=== PATIENT | female | born 1965 | race Caucasian/White ===

== ENCOUNTER 2022-06-28 12:02 | Inpatient (IN) | payer MEDICAID ==
[~2022-06-28] VITALS: Ht 162.6 cm; Wt 118.6 kg
[~2022-06-28 12:02] MED LIST: ALB5IS NEB; AZIT250T9 PO; CAR125T; DULO60CA PO; FURO1TAB31 PO; GEMF-19 PO; HYDR50TA69 PO; IBUP400T23 PO; LOSA100T25 PO; MAGN400T40 PO; POTA10TA32 PO; PROM25TA5 PO; QUET300T24 PO; QUET50TA27 PO; SPIR50TA5 PO; TEMA30CA PO
[2022-06-28 13:15] LABS: Basophils # (auto) 0 10 ^3/uL (0-0.2); Basophils % (auto) 0.5 % (0.0-2.0); Eosinophils # (auto) 0 10 ^3/uL (0-0.8); Hematocrit 40.9 % (36.0-46.0); Hemoglobin 13.8 g/dL (12.2-16.2); Lymphocytes % (auto) 9.6 % (10.0-50.0); Mean Corpuscular Hemoglobin 33.3 pg (28.0-32.0); Mean Corpuscular Hgb Conc. 33.7 g/dL (32.0-36.0); Mean Corpuscular Volume 98.9 fL (80.0-100.0); Monocytes # (auto) 1.2 10 ^3/uL (0-1.3); Monocytes % (auto) 10.7 % (0.0-12.0); Neutrophils # (auto) 8.7 10 ^3/uL (1.6-8.6); Neutrophils % (auto) 79.2 % (37.0-80.0); Nucleated Red Blood Cells % 0.1 %; Red Blood Cells 4.14 10^6/uL (4.0-5.20); Red Cell Distribution Width 13.8 % (11.8-14.3)
[2022-06-28 13:25] LABS: Albumin 3.4 g/dL (3.4-5.0); Calcium 9.4 mg/dL (8.5-10.1); Potassium 3.5 mmol/L (3.5-5.1)
[2022-06-28 13:29] LABS: BUN/Creatinine Ratio 21.1; Bilirubin, Total 0.4 mg/dL (0.2-1.0); Total Protein 7.1 g/dL (6.4-8.2)
[2022-06-28] MEDS ORDERED: ENOXAPARIN SOD 80 MG/0.8ML SYRINGE SC ONE (14:00)
[2022-06-28] MEDS ORDERED: AZITHROMYCIN 500MG/ 250ML 250 ML IV ONE (14:00)
[2022-06-28] MEDS ORDERED: cefTRIAXone 1GM/50ML D5W 50 ML IV ONE (14:00)
[2022-06-28 17:52] LABS: Urine Bacteria FEW /hpf (None Seen); Urine Blood 2+ /uL (Negative); Urine Specific Gravity 1.015 (1.001-1.035); Urine WBC 2 /hpf (0 - 5)
[2022-06-28] MEDS ORDERED: MORPHINE SULFATE INJ 2 MG/ml SYRG IV PRN (19:00)
[2022-06-28] MEDS ORDERED: NITROGLYCERIN 0.4 MG SL TAB SL PRN (19:00)
[2022-06-28] MEDS ORDERED: hydrALAZINE HCL 20 MG/ML VL IV PRN ×2 (19:00→19:15)
[2022-06-28] MEDS ORDERED: SODIUM CHLORIDE 0.9% 3,000 ML IV ONE (19:15)
[2022-06-28 20:02] LABS: INR 0.97 (0.9-1.15); Partial Thromboplastin Time 36.4 sec (24.6-33.4)
[2022-06-28 20:04] LABS: Cholesterol 262 mg/dL (< 200)
[2022-06-28 20:07] LABS: Amphetamine Screen, Urine NEGATIVE (NEGATIVE); Barbiturate Scree,Urine NEGATIVE (NEGATIVE); Benzodiazephine Screen, Urine NEGATIVE (NEGATIVE); Cannabinoid Screen, Urine NEGATIVE (NEGATIVE); Cocaine Screen, Urine NEGATIVE (NEGATIVE); Opiate Scree,Urine POSITIVE (NEGATIVE); Phencyclidine Screen, Urine NEGATIVE (NEGATIVE)
[2022-06-28 20:07] LABS: HDL Cholesterol 38 mg/dL (40-59); Triglycerides 634 mg/dL (< 150)
[2022-06-28] MEDS: SPIRONOLACTONE 25 MG TAB PO SCH (21:56)
[2022-06-28] MEDS ORDERED: hydrOXYzine 25 MG TAB or CAP PO SCH (22:00)
[2022-06-28] MEDS: GEMFIBROZIL 600 MG TAB PO SCH (22:28)
[2022-06-28] MEDS: MAGNESIUM OXIDE 400 MG TAB PO SCH (22:28)
[2022-06-28] MEDS: TEMAZEPAM 15 MG CAP PO SCH (22:33)
[2022-06-28] MEDS: CARVEDILOL 12.5 MG TAB PO SCH (23:28)
[2022-06-29 04:03] LABS: Basophils # (auto) 0 10 ^3/uL (0-0.2); Basophils % (auto) 0.2 % (0.0-2.0); Eosinophils # (auto) 0 10 ^3/uL (0-0.8); Eosinophils % (auto) 0.1 % (0.0-7.0); Hematocrit 39.4 % (36.0-46.0); Lymphocytes # (auto) 1.1 10 ^3/uL (0.4-5.4); Lymphocytes % (auto) 12.3 % (10.0-50.0); Mean Corpuscular Hemoglobin 33.1 pg (28.0-32.0); Mean Corpuscular Volume 100.4 fL (80.0-100.0); Monocytes # (auto) 1.2 10 ^3/uL (0-1.3); Monocytes % (auto) 13.3 % (0.0-12.0); Neutrophils # (auto) 6.7 10 ^3/uL (1.6-8.6); Neutrophils % (auto) 74.1 % (37.0-80.0); Nucleated Red Blood Cells % 0.1 %; Red Blood Cells 3.92 10^6/uL (4.0-5.20); Red Cell Distribution Width 13.8 % (11.8-14.3)
[2022-06-29 04:20] LABS: Potassium 3.7 mmol/L (3.5-5.1)
[2022-06-29 04:30] LABS: Albumin 3.1 g/dL (3.4-5.0); BUN/Creatinine Ratio 23.5; Bilirubin, Total 0.4 mg/dL (0.2-1.0); Calcium 8.9 mg/dL (8.5-10.1)
[2022-06-29] MEDS: ONDANSETRON HCL 4 MG/2 ML VIAL IV PRN ×2 (04:49→17:56)
[2022-06-29] MEDS: SPIRONOLACTONE 25 MG TAB PO SCH ×2 (08:05→17:56)
[2022-06-29] MEDS: ENOXAPARIN SOD 100 MG/1 ML SYRINGE SC SCH ×2 (08:06→17:56)
[2022-06-29] MEDS ORDERED: POTASSIUM CHL 10 Meq TABLET PO SCH (10:00)
[2022-06-29] MEDS: cefTRIAXone 1GM/50ML D5W 50 ML IV SCH (10:07)
[2022-06-29] MEDS ORDERED: LORazepam 2MG/ML-1ML VIAL IV PRN (10:15)
[2022-06-29] MEDS: MAGNESIUM OXIDE 400 MG TAB PO SCH ×2 (11:22→22:00)
[2022-06-29] MEDS: AZITHROMYCIN 500MG/ 250ML 250 ML IV SCH (11:22)
[2022-06-29] MEDS: DULoxetine HCL 30 MG CAP PO SCH (11:23)
[2022-06-29] MEDS: CARVEDILOL 12.5 MG TAB PO SCH ×2 (11:24→22:02)
[2022-06-29] MEDS: GEMFIBROZIL 600 MG TAB PO SCH ×2 (11:24→22:00)
[2022-06-29] MEDS: NICOTINE 7MG/24HR TOPICAL PATCH TD SCH (11:31)
[2022-06-29] MEDS: HYDROCHLO PO SCH (11:40)
[2022-06-29] MEDS: LOSARTAN POTASSIUM PO SCH (11:40)
[2022-06-29 11:56] LABS: Free T4 (Free Thyroxine) 0.61 ng/dL (0.89-1.76)
[2022-06-29 11:57] LABS: Folate (Folic Acid) 12.11 ng/mL (5.38-24)
[2022-06-29] MEDS ORDERED: GABAPENTIN 100 MG CAP PO SCH (14:00)
[2022-06-29] MEDS: BUMETANIDE 2.5mg/10ml (0.25 mg/ml) INJ IV SCH (17:55)
[2022-06-29] MEDS: MORPHINE SULFATE INJ 2 MG/ml SYRG IV PRN (17:57)
[2022-06-29 20:45] VITALS: BP 131/68
[2022-06-29] MEDS: TEMAZEPAM 15 MG CAP PO SCH (22:00)
[2022-06-29] MEDS: GABAPENTIN 100 MG CAP PO SCH (22:00)
[2022-06-29 23:35] VITALS: BP 121/67
[2022-06-30] VITALS (29 sets, daily range): BP systolic 86–125; BP diastolic 34–75
[2022-06-30 05:23] LABS: Basophils # (auto) 0 10 ^3/uL (0-0.2); Eosinophils # (auto) 0 10 ^3/uL (0-0.8); Monocytes # (auto) 1.1 10 ^3/uL (0-1.3); White Blood Cell 8.5 10^3/uL (4.4-10.8)
[2022-06-30 05:26] LABS: Basophils % (auto) 0.4 % (0.0-2.0); Eosinophils % (auto) 0.1 % (0.0-7.0); Hematocrit 41.5 % (36.0-46.0); Hemoglobin 13.4 g/dL (12.2-16.2); Lymphocytes # (auto) 1.1 10 ^3/uL (0.4-5.4); Lymphocytes % (auto) 12.5 % (10.0-50.0); Mean Corpuscular Hemoglobin 32.6 pg (28.0-32.0); Mean Corpuscular Hgb Conc. 32.2 g/dL (32.0-36.0); Mean Corpuscular Volume 101.3 fL (80.0-100.0); Monocytes % (auto) 13.2 % (0.0-12.0); Neutrophils # (auto) 6.3 10 ^3/uL (1.6-8.6); Neutrophils % (auto) 73.8 % (37.0-80.0); Nucleated Red Blood Cells % 0.1 %; Red Cell Distribution Width 14.5 % (11.8-14.3)
[2022-06-30 05:41] LABS: Albumin 3.3 g/dL (3.4-5.0); Calcium 9.2 mg/dL (8.5-10.1); Potassium 4.5 mmol/L (3.5-5.1)
[2022-06-30 05:45] LABS: BUN/Creatinine Ratio 23.7; Bilirubin, Direct 0.2 mg/dL (0-0.2); Bilirubin, Total 0.4 mg/dL (0.2-1.0); Total Protein 7.4 g/dL (6.4-8.2)
[2022-06-30] MEDS: ENOXAPARIN SOD 100 MG/1 ML SYRINGE SC SCH ×2 (05:58→19:38)
[2022-06-30] MEDS: SPIRONOLACTONE 25 MG TAB PO SCH ×3 (06:04→18:20)
[2022-06-30] MEDS: BUMETANIDE 2.5mg/10ml (0.25 mg/ml) INJ IV SCH ×2 (06:04→18:20)
[2022-06-30] MEDS: GABAPENTIN 100 MG CAP PO SCH ×4 (06:04→22:59)
[2022-06-30 08:06] LABS: Immunoglobulin G, Serum 614 mg/dL (586-1602)
[2022-06-30] MEDS: cefTRIAXone 1GM/50ML D5W 50 ML IV SCH (09:02)
[2022-06-30] MEDS: SOD CHL 0.45% 1,000 ML IV SCH (09:03)
[2022-06-30] MEDS: MAGNESIUM OXIDE 400 MG TAB PO SCH ×2 (10:00→22:59)
[2022-06-30] MEDS: LOSARTAN POTASSIUM PO SCH (10:00)
[2022-06-30] MEDS: HYDROCHLO PO SCH (10:00)
[2022-06-30] MEDS: DULoxetine HCL 30 MG CAP PO SCH (10:00)
[2022-06-30] MEDS: GEMFIBROZIL 600 MG TAB PO SCH ×2 (10:00→22:00)
[2022-06-30] MEDS: CARVEDILOL 12.5 MG TAB PO SCH ×2 (10:00→22:00)
[2022-06-30 10:02] LABS: Hepatitis B Surface Antibody Negative (Negative)
[2022-06-30] MEDS ORDERED: ETOMIDATE (2MG/ML) 20ML VIAL IV ONE ×2 (10:38→11:30)
[2022-06-30] MEDS ORDERED: ROCURONIUM 10MG/ML 10ML VIAL IV ONE ×3 (10:38→11:30)
[2022-06-30 10:41] LABS: Hepatitis A Total Antibody Negative (Negative)
[2022-06-30] MEDS ORDERED: MIDAZOLAM DRIP 50 mg/50mL 50 ML IV ONE (10:42)
[2022-06-30] MEDS ORDERED: PROPOFOL 100 ML IV ONE (10:44)
[2022-06-30] MEDS: PROPOFOL 100 ML IV SCH ×4 (10:46→23:09)
[2022-06-30] MEDS ORDERED: MIDAZOLAM HCL 5 MG/ML-1ML VIAL IV ONE (11:30)
[2022-06-30] MEDS ORDERED: PROPOFOL 10 MG/ML 20 ML IV ONE (11:45)
[2022-06-30 14:12] LABS: Hepatitis C Antibody Reactive (Negative)
[2022-06-30] MEDS: fentaNYL Drip 2500mCg/250mlNS 250 ML IV SCH (14:46)
[2022-06-30] MEDS ORDERED: methylPREDNISolone SOD SUCC 40 MG/ML VL IM ONE (16:00)
[2022-06-30] MEDS ORDERED: LIDOCAINE 1% (LOCAL ANESTH.) PF 5ml SDV ID ONE (16:45)
[2022-06-30] MEDS ORDERED: methylPREDNISolone SOD SUCC 40 MG/ML VL IV ONE (17:30)
[2022-06-30] MEDS ORDERED: IOHEXOL 350 MG/ML 100ML IJ ONE (17:32)
[2022-06-30] MEDS: AZITHROMYCIN 500MG/ 250ML 250 ML IV SCH (19:38)
[2022-06-30] MEDS: NICOTINE 7MG/24HR TOPICAL PATCH TD SCH (19:59)
[2022-06-30] MEDS: TEMAZEPAM 15 MG CAP PO SCH (22:59)
[2022-06-30] MEDS: methylPREDNISolone SOD SUCC 40 MG/ML VL IV SCH (22:59)
[2022-06-30] MEDS: SODIUM CHLOR 0.9% PF (SALINE LOCK) 10ML VIAL/SYR IV SCH (23:00)
[2022-07-01] VITALS (87 sets, daily range): BP systolic 69–132; BP diastolic 18–75
[2022-07-01] MEDS: PROPOFOL 100 ML IV SCH ×4 (01:12→18:28)
[2022-07-01] MEDS: SOD CHL 0.45% 1,000 ML IV SCH ×2 (01:40→21:02)
[2022-07-01 04:17] LABS: Basophils # (auto) 0 10 ^3/uL (0-0.2); Basophils % (auto) 0.2 % (0.0-2.0); Eosinophils # (auto) 0 10 ^3/uL (0-0.8); Hematocrit 39.1 % (36.0-46.0); Hemoglobin 12.8 g/dL (12.2-16.2); Lymphocytes % (auto) 17.3 % (10.0-50.0); Mean Corpuscular Hemoglobin 32.7 pg (28.0-32.0); Mean Corpuscular Hgb Conc. 32.7 g/dL (32.0-36.0); Mean Corpuscular Volume 99.8 fL (80.0-100.0); Monocytes # (auto) 0.5 10 ^3/uL (0-1.3); Monocytes % (auto) 8.8 % (0.0-12.0); Neutrophils # (auto) 4.4 10 ^3/uL (1.6-8.6); Neutrophils % (auto) 73.7 % (37.0-80.0); Nucleated Red Blood Cells % 0.2 %; Red Blood Cells 3.91 10^6/uL (4.0-5.20); Red Cell Distribution Width 13.8 % (11.8-14.3); White Blood Cell 5.9 10^3/uL (4.4-10.8)
[2022-07-01 04:37] LABS: Albumin 3.1 g/dL (3.4-5.0); Calcium 9.2 mg/dL (8.5-10.1); Potassium 4.2 mmol/L (3.5-5.1)
[2022-07-01 04:41] LABS: Bilirubin, Total 0.7 mg/dL (0.2-1.0); Total Protein 6.3 g/dL (6.4-8.2)
[2022-07-01 05:17] LABS: BUN/Creatinine Ratio 32.4
[2022-07-01] MEDS: BUMETANIDE 2.5mg/10ml (0.25 mg/ml) INJ IV SCH ×2 (06:00→18:00)
[2022-07-01] MEDS: SPIRONOLACTONE 25 MG TAB PO SCH ×2 (06:39→18:00)
[2022-07-01] MEDS: ENOXAPARIN SOD 100 MG/1 ML SYRINGE SC SCH (06:39)
[2022-07-01] MEDS: GABAPENTIN 100 MG CAP PO SCH ×3 (06:44→21:56)
[2022-07-01] MEDS ORDERED: MIDAZOLAM DRIP 50 mg/50mL 50 ML IV ONE (07:45)
[2022-07-01] MEDS: MIDAZOLAM DRIP 50 mg/50mL 50 ML IV SCH ×2 (07:50→19:47)
[2022-07-01] MEDS: CARVEDILOL 12.5 MG TAB PO SCH ×2 (10:00→21:55)
[2022-07-01] MEDS: HYDROCHLO PO SCH (10:00)
[2022-07-01] MEDS: LOSARTAN POTASSIUM PO SCH (10:00)
[2022-07-01] MEDS: cefTRIAXone 1GM/50ML D5W 50 ML IV SCH (10:04)
[2022-07-01] MEDS: methylPREDNISolone SOD SUCC 40 MG/ML VL IV SCH ×2 (10:05→21:54)
[2022-07-01] MEDS: SODIUM CHLOR 0.9% PF (SALINE LOCK) 10ML VIAL/SYR IV SCH ×2 (10:05→21:53)
[2022-07-01] MEDS: DULoxetine HCL 30 MG CAP PO SCH (10:06)
[2022-07-01] MEDS: MAGNESIUM OXIDE 400 MG TAB PO SCH ×2 (10:07→21:55)
[2022-07-01] MEDS: AZITHROMYCIN 500MG/ 250ML 250 ML IV SCH (10:52)
[2022-07-01] MEDS: METOCLOPRAMIDE 10 mg/10ml ORAL soln GT SCH ×3 (14:00→22:23)
[2022-07-01] MEDS: GEMFIBROZIL 600 MG TAB PO SCH ×2 (18:06→22:23)
[2022-07-01] MEDS: NICOTINE 7MG/24HR TOPICAL PATCH TD SCH (18:07)
[2022-07-01] MEDS: fentaNYL Drip 2500mCg/250mlNS 250 ML IV SCH (18:08)
[2022-07-01] MEDS ORDERED: NOREPINEPHRINE 8 MG/250ML KIT 250 ML IV SCH (19:15)
[2022-07-01] MEDS ORDERED: Jevity 1.2 Cal/Fiber 1 Liter GT SCH (19:15)
[2022-07-01] MEDS: NOREPINEPHRINE 8 MG/250ML KIT 250 ML IV SCH (21:53)
[2022-07-01] MEDS: TEMAZEPAM 15 MG CAP PO SCH (21:56)
[2022-07-01] MEDS: ALBUTEROL SULF 2.5 MG/0.5ML(0.5%) NEB SOLN NEB PRN (22:23)
[2022-07-01] MEDS: IPRATROPIUM BROM 0.5 MG/2.5ML INH SOL NEB PRN (22:23)
[2022-07-02] VITALS (102 sets, daily range): BP systolic 83–145; BP diastolic 24–79
[2022-07-02 04:20] LABS: Bilirubin, Direct 0.2 mg/dL (0-0.2); Calcium 8.9 mg/dL (8.5-10.1); Potassium 4.6 mmol/L (3.5-5.1)
[2022-07-02 04:23] LABS: BUN/Creatinine Ratio 28.2; Bilirubin, Total 0.4 mg/dL (0.2-1.0); Total Protein 6.4 g/dL (6.4-8.2)
[2022-07-02 04:26] LABS: Basophils # (auto) 0 10 ^3/uL (0-0.2); Basophils % (auto) 0.4 % (0.0-2.0); Eosinophils # (auto) 0 10 ^3/uL (0-0.8); Hematocrit 39.2 % (36.0-46.0); Lymphocytes # (auto) 1.1 10 ^3/uL (0.4-5.4); Lymphocytes % (auto) 15.1 % (10.0-50.0); Mean Corpuscular Hemoglobin 33.3 pg (28.0-32.0); Mean Corpuscular Volume 100.9 fL (80.0-100.0); Monocytes # (auto) 0.6 10 ^3/uL (0-1.3); Monocytes % (auto) 9.3 % (0.0-12.0); Neutrophils # (auto) 5.2 10 ^3/uL (1.6-8.6); Neutrophils % (auto) 75.2 % (37.0-80.0); Nucleated Red Blood Cells % 0.1 %; Red Blood Cells 3.89 10^6/uL (4.0-5.20); Red Cell Distribution Width 13.8 % (11.8-14.3)
[2022-07-02] MEDS: SPIRONOLACTONE 25 MG TAB PO SCH ×2 (05:28→18:18)
[2022-07-02] MEDS: BUMETANIDE 2.5mg/10ml (0.25 mg/ml) INJ IV SCH ×2 (05:28→18:18)
[2022-07-02] MEDS: METOCLOPRAMIDE 10 mg/10ml ORAL soln GT SCH ×3 (05:39→21:53)
[2022-07-02] MEDS: fentaNYL Drip 2500mCg/250mlNS 250 ML IV SCH ×2 (05:39→17:44)
[2022-07-02] MEDS: MIDAZOLAM DRIP 50 mg/50mL 50 ML IV SCH ×3 (05:40→19:55)
[2022-07-02] MEDS: GABAPENTIN 100 MG CAP PO SCH ×3 (05:42→21:48)
[2022-07-02] MEDS: cefTRIAXone 1GM/50ML D5W 50 ML IV SCH (09:16)
[2022-07-02] MEDS: DULoxetine HCL 30 MG CAP PO SCH ×2 (10:00→10:32)
[2022-07-02] MEDS: HYDROCHLO PO SCH (10:00)
[2022-07-02] MEDS: CARVEDILOL 12.5 MG TAB PO SCH ×2 (10:00→21:54)
[2022-07-02] MEDS: LOSARTAN POTASSIUM PO SCH (10:00)
[2022-07-02] MEDS: AZITHROMYCIN 500MG/ 250ML 250 ML IV SCH (10:31)
[2022-07-02] MEDS: methylPREDNISolone SOD SUCC 40 MG/ML VL IV SCH ×2 (10:31→21:48)
[2022-07-02] MEDS: MAGNESIUM OXIDE 400 MG TAB PO SCH ×2 (10:33→21:48)
[2022-07-02] MEDS: ENOXAPARIN SOD 100 MG/1 ML SYRINGE SC SCH (10:33)
[2022-07-02] MEDS: GEMFIBROZIL 600 MG TAB PO SCH ×2 (10:33→21:54)
[2022-07-02] MEDS: NICOTINE 7MG/24HR TOPICAL PATCH TD SCH (10:34)
[2022-07-02] MEDS: SODIUM CHLOR 0.9% PF (SALINE LOCK) 10ML VIAL/SYR IV SCH ×2 (10:38→21:49)
[2022-07-02] MEDS ORDERED: IBUPROFEN 100MG/5ML ORAL SUSP 100 MG/5 ML UD GT PRN (17:30)
[2022-07-02] MEDS: NOREPINEPHRINE 8 MG/250ML KIT 250 ML IV SCH (20:45)
[2022-07-02] MEDS: TEMAZEPAM 15 MG CAP PO SCH (21:49)
[2022-07-03] VITALS (105 sets, daily range): BP systolic 92–151; BP diastolic 47–92
[2022-07-03] MEDS: MIDAZOLAM DRIP 50 mg/50mL 50 ML IV SCH ×3 (01:05→20:30)
[2022-07-03 03:41] LABS: Basophils # (auto) 0.1 10 ^3/uL (0-0.2); Basophils % (auto) 1.7 % (0.0-2.0); Eosinophils # (auto) 0 10 ^3/uL (0-0.8); Eosinophils % (auto) 0.3 % (0.0-7.0); Hematocrit 40.2 % (36.0-46.0); Hemoglobin 13.1 g/dL (12.2-16.2); Lymphocytes # (auto) 1.1 10 ^3/uL (0.4-5.4); Lymphocytes % (auto) 16.2 % (10.0-50.0); Mean Corpuscular Hemoglobin 32.6 pg (28.0-32.0); Mean Corpuscular Hgb Conc. 32.5 g/dL (32.0-36.0); Mean Corpuscular Volume 100.2 fL (80.0-100.0); Monocytes # (auto) 0.4 10 ^3/uL (0-1.3); Monocytes % (auto) 5.6 % (0.0-12.0); Neutrophils # (auto) 5.3 10 ^3/uL (1.6-8.6); Neutrophils % (auto) 76.2 % (37.0-80.0); Red Blood Cells 4.01 10^6/uL (4.0-5.20); Red Cell Distribution Width 14.1 % (11.8-14.3); White Blood Cell 6.9 10^3/uL (4.4-10.8)
[2022-07-03] MEDS: fentaNYL Drip 2500mCg/250mlNS 250 ML IV SCH ×2 (05:26→17:00)
[2022-07-03 05:52] LABS: BUN/Creatinine Ratio 26.3; Bilirubin, Direct 0.2 mg/dL (0-0.2); Bilirubin, Total 0.4 mg/dL (0.2-1.0); Calcium 9.4 mg/dL (8.5-10.1); Potassium 4.4 mmol/L (3.5-5.1)
[2022-07-03 05:53] LABS: Total Protein 6.7 g/dL (6.4-8.2)
[2022-07-03] MEDS: SPIRONOLACTONE 25 MG TAB PO SCH ×2 (05:54→18:21)
[2022-07-03] MEDS: GABAPENTIN 100 MG CAP PO SCH ×3 (05:54→22:22)
[2022-07-03] MEDS: METOCLOPRAMIDE 10 mg/10ml ORAL soln GT SCH ×3 (05:54→22:00)
[2022-07-03] MEDS: BUMETANIDE 2.5mg/10ml (0.25 mg/ml) INJ IV SCH ×2 (05:54→18:21)
[2022-07-03] MEDS: cefTRIAXone 1GM/50ML D5W 50 ML IV SCH (08:46)
[2022-07-03] MEDS: LOSARTAN POTASSIUM PO SCH (10:00)
[2022-07-03] MEDS: CARVEDILOL 12.5 MG TAB PO SCH ×2 (10:00→22:00)
[2022-07-03] MEDS: DULoxetine HCL 30 MG CAP PO SCH (10:00)
[2022-07-03] MEDS: HYDROCHLO PO SCH (10:00)
[2022-07-03] MEDS: methylPREDNISolone SOD SUCC 40 MG/ML VL IV SCH ×2 (10:29→22:22)
[2022-07-03] MEDS: ENOXAPARIN SOD 100 MG/1 ML SYRINGE SC SCH (10:29)
[2022-07-03] MEDS: GEMFIBROZIL 600 MG TAB PO SCH ×2 (10:29→22:22)
[2022-07-03] MEDS: AZITHROMYCIN 500MG/ 250ML 250 ML IV SCH (10:29)
[2022-07-03] MEDS: SODIUM CHLOR 0.9% PF (SALINE LOCK) 10ML VIAL/SYR IV SCH ×2 (10:30→22:00)
[2022-07-03] MEDS: MAGNESIUM OXIDE 400 MG TAB PO SCH ×2 (10:30→22:00)
[2022-07-03] MEDS: NICOTINE 7MG/24HR TOPICAL PATCH TD SCH (10:31)
[2022-07-03] MEDS: PROPOFOL 100 ML IV SCH (12:00)
[2022-07-03] MEDS: NOREPINEPHRINE 8 MG/250ML KIT 250 ML IV SCH (20:45)
[2022-07-03] MEDS: TEMAZEPAM 15 MG CAP PO SCH (22:00)
[2022-07-04] VITALS (97 sets, daily range): BP systolic 94–147; BP diastolic 26–86
[2022-07-04 03:39] LABS: Hemoglobin 13.3 g/dL (12.2-16.2); Mean Corpuscular Hemoglobin 32.5 pg (28.0-32.0); Mean Corpuscular Hgb Conc. 32.4 g/dL (32.0-36.0); Mean Corpuscular Volume 100.1 fL (80.0-100.0); Red Cell Distribution Width 13.5 % (11.8-14.3); White Blood Cell 7.8 10^3/uL (4.4-10.8)
[2022-07-04 03:44] LABS: BUN/Creatinine Ratio 30.6; Calcium 9.7 mg/dL (8.5-10.1); Magnesium 2.3 mg/dL (1.6-2.6); Potassium 4.4 mmol/L (3.5-5.1)
[2022-07-04 03:48] LABS: Basophils % (manual) 0 (0.0-2.0); Blast Cells 0; Eosinophils % (manual) 0 (0-7); Metamyelocytes % 0; Myelocytes % 0; Promyelocytes % 0; Reactive Lymphocytes 0
[2022-07-04] MEDS: MIDAZOLAM DRIP 50 mg/50mL 50 ML IV SCH ×2 (03:55→09:13)
[2022-07-04 04:10] LABS: Band Neutrophils % (manual) 4; Lymphocytes % (manual) 19 (10.0-50.0); Monocytes % (manual) 5 (0-12)
[2022-07-04] MEDS: fentaNYL Drip 2500mCg/250mlNS 250 ML IV SCH (04:30)
[2022-07-04] MEDS: BUMETANIDE 2.5mg/10ml (0.25 mg/ml) INJ IV SCH ×2 (05:39→18:16)
[2022-07-04] MEDS: METOCLOPRAMIDE 10 mg/10ml ORAL soln GT SCH ×3 (05:39→22:00)
[2022-07-04] MEDS: GABAPENTIN 100 MG CAP PO SCH ×3 (05:39→22:00)
[2022-07-04] MEDS: SPIRONOLACTONE 25 MG TAB PO SCH ×2 (06:18→18:16)
[2022-07-04] MEDS: cefTRIAXone 1GM/50ML D5W 50 ML IV SCH (09:12)
[2022-07-04] MEDS: DULoxetine HCL 30 MG CAP PO SCH (10:00)
[2022-07-04] MEDS: LOSARTAN POTASSIUM PO SCH (10:00)
[2022-07-04] MEDS: CARVEDILOL 12.5 MG TAB PO SCH ×2 (10:00→22:00)
[2022-07-04] MEDS: HYDROCHLO PO SCH (10:00)
[2022-07-04] MEDS: AZITHROMYCIN 500MG/ 250ML 250 ML IV SCH (10:39)
[2022-07-04] MEDS: methylPREDNISolone SOD SUCC 40 MG/ML VL IV SCH ×2 (10:39→22:08)
[2022-07-04] MEDS: ENOXAPARIN SOD 100 MG/1 ML SYRINGE SC SCH (10:40)
[2022-07-04] MEDS: NICOTINE 7MG/24HR TOPICAL PATCH TD SCH (10:40)
[2022-07-04] MEDS: GEMFIBROZIL 600 MG TAB PO SCH ×2 (10:41→22:08)
[2022-07-04] MEDS: MAGNESIUM OXIDE 400 MG TAB PO SCH ×2 (10:41→22:00)
[2022-07-04] MEDS: SODIUM CHLOR 0.9% PF (SALINE LOCK) 10ML VIAL/SYR IV SCH ×2 (10:41→22:00)
[2022-07-04] MEDS: PROPOFOL 100 ML IV SCH (12:00)
[2022-07-04] MEDS ORDERED: ALBUTEROL MEDNEB 2.5 mg/3ml NEB ONE (14:18)
[2022-07-04] MEDS: ALBUTEROL SULF 2.5 MG/0.5ML(0.5%) NEB SOLN NEB PRN ×2 (14:20→22:37)
[2022-07-04] MEDS: IPRATROPIUM BROM 0.5 MG/2.5ML INH SOL NEB PRN ×2 (14:20→22:37)
[2022-07-04] MEDS: NOREPINEPHRINE 8 MG/250ML KIT 250 ML IV SCH (20:45)
[2022-07-04] MEDS: TEMAZEPAM 15 MG CAP PO SCH (22:00)
[2022-07-05] VITALS (106 sets, daily range): BP systolic 103–149; BP diastolic 63–93
[2022-07-05] MEDS: BUMETANIDE 2.5mg/10ml (0.25 mg/ml) INJ IV SCH ×2 (05:45→17:15)
[2022-07-05] MEDS: SPIRONOLACTONE 25 MG TAB PO SCH ×2 (05:45→17:15)
[2022-07-05] MEDS: METOCLOPRAMIDE 10 mg/10ml ORAL soln GT SCH ×3 (05:45→21:41)
[2022-07-05] MEDS: GABAPENTIN 100 MG CAP PO SCH ×3 (05:45→21:40)
[2022-07-05] MEDS: cefTRIAXone 1GM/50ML D5W 50 ML IV SCH (09:24)
[2022-07-05] MEDS: AZITHROMYCIN 500MG/ 250ML 250 ML IV SCH (09:55)
[2022-07-05] MEDS: methylPREDNISolone SOD SUCC 40 MG/ML VL IV SCH ×3 (09:55→21:40)
[2022-07-05] MEDS: ENOXAPARIN SOD 100 MG/1 ML SYRINGE SC SCH (09:56)
[2022-07-05] MEDS: GEMFIBROZIL 600 MG TAB PO SCH ×2 (09:56→21:40)
[2022-07-05] MEDS: CARVEDILOL 12.5 MG TAB PO SCH ×2 (09:57→21:41)
[2022-07-05] MEDS: MAGNESIUM OXIDE 400 MG TAB PO SCH ×2 (09:57→21:40)
[2022-07-05] MEDS: DULoxetine HCL 30 MG CAP PO SCH (09:57)
[2022-07-05] MEDS: SODIUM CHLOR 0.9% PF (SALINE LOCK) 10ML VIAL/SYR IV SCH ×2 (09:58→21:41)
[2022-07-05] MEDS: NICOTINE 7MG/24HR TOPICAL PATCH TD SCH (09:58)
[2022-07-05] MEDS: LOSARTAN POTASSIUM PO SCH (10:00)
[2022-07-05] MEDS: HYDROCHLO PO SCH (10:00)
[2022-07-05] MEDS: PROPOFOL 100 ML IV SCH (11:22)
[2022-07-05] MEDS: MIDAZOLAM DRIP 50 mg/50mL 50 ML IV SCH ×3 (11:40→21:10)
[2022-07-05] MEDS: IPRATROPIUM BROM 0.5 MG/2.5ML INH SOL NEB SCH ×3 (12:48→23:55)
[2022-07-05] MEDS: ALBUTEROL SULF 2.5 MG/0.5ML(0.5%) NEB SOLN NEB SCH ×3 (12:48→23:55)
[2022-07-05] MEDS: fentaNYL Drip 2500mCg/250mlNS 250 ML IV SCH (15:32)
[2022-07-05] MEDS: PIPERACILLIN-TAZOB 3.375GM 100 ML IV SCH ×2 (15:33→21:40)
[2022-07-05] MEDS: NOREPINEPHRINE 8 MG/250ML KIT 250 ML IV SCH (20:45)
[2022-07-05] MEDS: TEMAZEPAM 15 MG CAP PO SCH (21:40)
[2022-07-06] VITALS (72 sets, daily range): BP systolic 104–150; BP diastolic 64–106
[2022-07-06 04:16] LABS: Basophils # (auto) 0 10 ^3/uL (0-0.2); Basophils % (auto) 0.3 % (0.0-2.0); Eosinophils # (auto) 0 10 ^3/uL (0-0.8); Eosinophils % (auto) 0.3 % (0.0-7.0); Hematocrit 46.5 % (36.0-46.0); Hemoglobin 15.2 g/dL (12.2-16.2); Lymphocytes # (auto) 0.8 10 ^3/uL (0.4-5.4); Lymphocytes % (auto) 9.5 % (10.0-50.0); Mean Corpuscular Hemoglobin 32.6 pg (28.0-32.0); Mean Corpuscular Hgb Conc. 32.7 g/dL (32.0-36.0); Mean Corpuscular Volume 99.5 fL (80.0-100.0); Monocytes # (auto) 0.5 10 ^3/uL (0-1.3); Monocytes % (auto) 5.7 % (0.0-12.0); Neutrophils # (auto) 7.2 10 ^3/uL (1.6-8.6); Neutrophils % (auto) 84.2 % (37.0-80.0); Nucleated Red Blood Cells % 0.1 %; Red Blood Cells 4.68 10^6/uL (4.0-5.20); Red Cell Distribution Width 13.3 % (11.8-14.3); White Blood Cell 8.6 10^3/uL (4.4-10.8)
[2022-07-06 04:33] LABS: Albumin 3.4 g/dL (3.4-5.0); Calcium 9.6 mg/dL (8.5-10.1); Potassium 4.7 mmol/L (3.5-5.1)
[2022-07-06 04:37] LABS: BUN/Creatinine Ratio 48.8; Bilirubin, Total 0.9 mg/dL (0.2-1.0); Total Protein 7.1 g/dL (6.4-8.2)
[2022-07-06] MEDS: BUMETANIDE 2.5mg/10ml (0.25 mg/ml) INJ IV SCH ×2 (05:34→17:44)
[2022-07-06] MEDS: methylPREDNISolone SOD SUCC 40 MG/ML VL IV SCH ×3 (05:34→22:00)
[2022-07-06] MEDS: PIPERACILLIN-TAZOB 3.375GM 100 ML IV SCH ×3 (05:35→22:02)
[2022-07-06] MEDS: SPIRONOLACTONE 25 MG TAB PO SCH ×2 (05:35→17:38)
[2022-07-06] MEDS: GABAPENTIN 100 MG CAP PO SCH ×3 (05:35→22:00)
[2022-07-06] MEDS: METOCLOPRAMIDE 10 mg/10ml ORAL soln GT SCH ×3 (05:35→22:00)
[2022-07-06] MEDS: IPRATROPIUM BROM 0.5 MG/2.5ML INH SOL NEB SCH ×3 (06:10→18:11)
[2022-07-06] MEDS: ALBUTEROL SULF 2.5 MG/0.5ML(0.5%) NEB SOLN NEB SCH ×3 (06:11→18:11)
[2022-07-06] MEDS: LOSARTAN POTASSIUM PO SCH (10:00)
[2022-07-06] MEDS: HYDROCHLO PO SCH (10:00)
[2022-07-06] MEDS: CARVEDILOL 12.5 MG TAB PO SCH ×2 (10:00→22:00)
[2022-07-06] MEDS: PANTOPRAZOLE 40 MG/10 ML VIAL INJ IV SCH (10:22)
[2022-07-06] MEDS: ENOXAPARIN SOD 100 MG/1 ML SYRINGE SC SCH (10:22)
[2022-07-06] MEDS: DULoxetine HCL 30 MG CAP PO SCH (10:23)
[2022-07-06] MEDS: NICOTINE 7MG/24HR TOPICAL PATCH TD SCH (10:24)
[2022-07-06] MEDS: MAGNESIUM OXIDE 400 MG TAB PO SCH ×2 (10:26→22:00)
[2022-07-06] MEDS: SODIUM CHLOR 0.9% PF (SALINE LOCK) 10ML VIAL/SYR IV SCH ×2 (10:28→21:39)
[2022-07-06] MEDS: GEMFIBROZIL 600 MG TAB PO SCH ×2 (10:32→22:00)
[2022-07-06] MEDS: PROPOFOL 100 ML IV SCH (12:00)
[2022-07-06] MEDS ORDERED: ALBUTEROL SULF 2.5 MG/0.5ML(0.5%) NEB SOLN ONE (14:15)
[2022-07-06] MEDS ORDERED: ALBUTEROL SULF 2.5 MG/0.5ML(0.5%) NEB SOLN NEB PRN (14:15)
[2022-07-06] MEDS ORDERED: IPRATROPIUM BROM 0.5 MG/2.5ML INH SOL NEB PRN (14:15)
[2022-07-06] MEDS: fentaNYL Drip 2500mCg/250mlNS 250 ML IV SCH (14:15)
[2022-07-06] MEDS ORDERED: IPRATROPIUM BROM 0.5 MG/2.5ML INH SOL ONE (14:15)
[2022-07-06] MEDS: MORPHINE SULFATE INJ 2 MG/ml SYRG IV PRN ×2 (15:08→20:45)
[2022-07-06] MEDS: LORazepam 2MG/ML-1ML VIAL IV PRN ×2 (16:03→22:16)
[2022-07-06] MEDS: NOREPINEPHRINE 8 MG/250ML KIT 250 ML IV SCH (20:45)
[2022-07-06] MEDS: TEMAZEPAM 15 MG CAP PO SCH (22:00)
[2022-07-06] MEDS: ONDANSETRON HCL 4 MG/2 ML VIAL IV PRN (23:53)
[2022-07-07] VITALS (18 sets, daily range): BP systolic 116–137; BP diastolic 70–97
[2022-07-07] MEDS: IPRATROPIUM BROM 0.5 MG/2.5ML INH SOL NEB SCH ×4 (00:06→18:08)
[2022-07-07] MEDS: ALBUTEROL SULF 2.5 MG/0.5ML(0.5%) NEB SOLN NEB SCH ×4 (00:06→18:08)
[2022-07-07] MEDS: LORazepam 2MG/ML-1ML VIAL IV PRN ×2 (04:05→15:56)
[2022-07-07] MEDS: methylPREDNISolone SOD SUCC 40 MG/ML VL IV SCH ×3 (05:48→22:03)
[2022-07-07] MEDS: BUMETANIDE 2.5mg/10ml (0.25 mg/ml) INJ IV SCH ×2 (05:48→19:44)
[2022-07-07] MEDS: GABAPENTIN 100 MG CAP PO SCH ×3 (05:57→22:05)
[2022-07-07] MEDS: PIPERACILLIN-TAZOB 3.375GM 100 ML IV SCH ×3 (05:57→22:03)
[2022-07-07] MEDS: SPIRONOLACTONE 25 MG TAB PO SCH ×2 (05:57→19:43)
[2022-07-07] MEDS: METOCLOPRAMIDE 10 mg/10ml ORAL soln GT SCH ×3 (05:57→22:00)
[2022-07-07] MEDS: MORPHINE SULFATE INJ 2 MG/ml SYRG IV PRN ×2 (06:42→11:21)
[2022-07-07] MEDS: ONDANSETRON HCL 4 MG/2 ML VIAL IV PRN ×2 (07:07→11:20)
[2022-07-07] MEDS: MIDAZOLAM DRIP 50 mg/50mL 50 ML IV SCH (07:45)
[2022-07-07] MEDS: LOSARTAN POTASSIUM PO SCH (09:26)
[2022-07-07] MEDS: CARVEDILOL 12.5 MG TAB PO SCH ×2 (09:26→22:16)
[2022-07-07] MEDS: HYDROCHLO PO SCH (09:26)
[2022-07-07] MEDS: DULoxetine HCL 30 MG CAP PO SCH (09:27)
[2022-07-07] MEDS: GEMFIBROZIL 600 MG TAB PO SCH ×2 (09:27→22:04)
[2022-07-07] MEDS: MAGNESIUM OXIDE 400 MG TAB PO SCH ×2 (09:27→22:05)
[2022-07-07] MEDS: PANTOPRAZOLE 40 MG/10 ML VIAL INJ IV SCH (09:41)
[2022-07-07] MEDS: NICOTINE 7MG/24HR TOPICAL PATCH TD SCH (09:41)
[2022-07-07] MEDS: ENOXAPARIN SOD 100 MG/1 ML SYRINGE SC SCH (09:41)
[2022-07-07] MEDS: SODIUM CHLOR 0.9% PF (SALINE LOCK) 10ML VIAL/SYR IV SCH ×2 (09:42→22:03)
[2022-07-07] MEDS: PROPOFOL 100 ML IV SCH (12:00)
[2022-07-07] MEDS: fentaNYL Drip 2500mCg/250mlNS 250 ML IV SCH (14:15)
[2022-07-07] MEDS ORDERED: LORazepam 2MG/ML-1ML VIAL IV PRN (18:00)
[2022-07-07] MEDS: TEMAZEPAM 15 MG CAP PO SCH (22:06)
[2022-07-08] VITALS (8 sets, daily range): BP systolic 100–146; BP diastolic 63–98
[2022-07-08] MEDS: IPRATROPIUM BROM 0.5 MG/2.5ML INH SOL NEB SCH ×4 (00:37→18:05)
[2022-07-08] MEDS: ALBUTEROL SULF 2.5 MG/0.5ML(0.5%) NEB SOLN NEB SCH ×4 (00:37→18:05)
[2022-07-08 05:36] LABS: Calcium 10.7 mg/dL (8.5-10.1); Potassium 4.1 mmol/L (3.5-5.1)
[2022-07-08 05:37] LABS: BUN/Creatinine Ratio 38.6
[2022-07-08] MEDS: METOCLOPRAMIDE 10 mg/10ml ORAL soln GT SCH (06:00)
[2022-07-08] MEDS: BUMETANIDE 2.5mg/10ml (0.25 mg/ml) INJ IV SCH (06:01)
[2022-07-08] MEDS: SPIRONOLACTONE 25 MG TAB PO SCH ×2 (06:02→17:55)
[2022-07-08] MEDS: GABAPENTIN 100 MG CAP PO SCH ×3 (06:02→22:06)
[2022-07-08] MEDS: methylPREDNISolone SOD SUCC 40 MG/ML VL IV SCH ×2 (06:14→22:01)
[2022-07-08] MEDS: PIPERACILLIN-TAZOB 3.375GM 100 ML IV SCH ×3 (06:14→22:01)
[2022-07-08] MEDS: LOSARTAN POTASSIUM PO SCH (10:00)
[2022-07-08] MEDS: HYDROCHLO PO SCH (10:00)
[2022-07-08] MEDS: SODIUM CHLOR 0.9% PF (SALINE LOCK) 10ML VIAL/SYR IV SCH ×2 (10:26→22:01)
[2022-07-08] MEDS: PANTOPRAZOLE 40 MG/10 ML VIAL INJ IV SCH (10:26)
[2022-07-08] MEDS: NICOTINE 7MG/24HR TOPICAL PATCH TD SCH (10:27)
[2022-07-08] MEDS: DULoxetine HCL 30 MG CAP PO SCH (10:27)
[2022-07-08] MEDS: MAGNESIUM OXIDE 400 MG TAB PO SCH ×2 (10:27→22:06)
[2022-07-08] MEDS: ENOXAPARIN SOD 100 MG/1 ML SYRINGE SC SCH (10:27)
[2022-07-08] MEDS: GEMFIBROZIL 600 MG TAB PO SCH ×2 (10:27→22:03)
[2022-07-08] MEDS: CARVEDILOL 12.5 MG TAB PO SCH ×2 (10:30→22:05)
[2022-07-08] MEDS: MORPHINE SULFATE INJ 2 MG/ml SYRG IV PRN (17:56)
[2022-07-08] MEDS ORDERED: ZOLP10TA6 PO (21:02)
[2022-07-08] MEDS ORDERED: GABA400C11 PO (21:02)
[2022-07-08] MEDS ORDERED: QUET400T13 PO (21:02)
[2022-07-08] MEDS ORDERED: HYDR-4072 PO (21:02)
[2022-07-08] MEDS ORDERED: LISI-716 PO (21:02)
[2022-07-08] MEDS ORDERED: METO25TA93 PO (21:02)
[2022-07-08] MEDS: TEMAZEPAM 15 MG CAP PO SCH (22:03)
[2022-07-09] MEDS: MORPHINE SULFATE INJ 2 MG/ml SYRG IV PRN (01:49)
[2022-07-09] MEDS: ALBUTEROL SULF 2.5 MG/0.5ML(0.5%) NEB SOLN NEB SCH ×4 (03:04→18:53)
[2022-07-09] MEDS: IPRATROPIUM BROM 0.5 MG/2.5ML INH SOL NEB SCH ×4 (03:04→18:53)
[2022-07-09 05:00] VITALS: BP 97/71
[2022-07-09] MEDS: GABAPENTIN 100 MG CAP PO SCH ×3 (06:03→21:06)
[2022-07-09] MEDS: SPIRONOLACTONE 25 MG TAB PO SCH ×2 (06:04→17:46)
[2022-07-09] MEDS: PIPERACILLIN-TAZOB 3.375GM 100 ML IV SCH ×3 (06:04→21:05)
[2022-07-09 09:00] VITALS: BP 122/82
[2022-07-09] MEDS: SODIUM CHLOR 0.9% PF (SALINE LOCK) 10ML VIAL/SYR IV SCH ×2 (09:29→22:00)
[2022-07-09] MEDS: methylPREDNISolone SOD SUCC 40 MG/ML VL IV SCH ×2 (09:30→21:04)
[2022-07-09] MEDS: LOSARTAN POTASSIUM PO SCH (09:30)
[2022-07-09] MEDS: HYDROCHLO PO SCH (09:30)
[2022-07-09] MEDS: DULoxetine HCL 30 MG CAP PO SCH (09:31)
[2022-07-09] MEDS: MAGNESIUM OXIDE 400 MG TAB PO SCH ×2 (09:31→21:06)
[2022-07-09] MEDS: GEMFIBROZIL 600 MG TAB PO SCH ×2 (09:31→21:05)
[2022-07-09] MEDS: CARVEDILOL 12.5 MG TAB PO SCH ×2 (09:31→22:00)
[2022-07-09] MEDS: ENOXAPARIN SOD 100 MG/1 ML SYRINGE SC SCH (09:33)
[2022-07-09] MEDS: NICOTINE 7MG/24HR TOPICAL PATCH TD SCH (09:37)
[2022-07-09 13:00] VITALS: BP 119/66
[2022-07-09] MEDS: HYDROcodone-ACET 10/325MG TAB PO PRN ×2 (13:25→19:49)
[2022-07-09 17:00] VITALS: BP 127/85
[2022-07-09] MEDS: TEMAZEPAM 15 MG CAP PO SCH (21:06)
[2022-07-09 21:55] VITALS: BP 106/64
[2022-07-10] MEDS: ALBUTEROL SULF 2.5 MG/0.5ML(0.5%) NEB SOLN NEB SCH ×4 (00:31→18:40)
[2022-07-10] MEDS: IPRATROPIUM BROM 0.5 MG/2.5ML INH SOL NEB SCH ×4 (00:31→18:40)
[2022-07-10] MEDS: HYDROcodone-ACET 10/325MG TAB PO PRN ×3 (02:48→19:34)
[2022-07-10 04:47] VITALS: BP 107/61
[2022-07-10] MEDS: GABAPENTIN 100 MG CAP PO SCH ×3 (05:26→20:56)
[2022-07-10] MEDS: PIPERACILLIN-TAZOB 3.375GM 100 ML IV SCH ×3 (05:26→20:55)
[2022-07-10] MEDS: SODIUM CHLOR 0.9% PF (SALINE LOCK) 10ML VIAL/SYR IV SCH ×2 (05:26→22:00)
[2022-07-10] MEDS: SPIRONOLACTONE 25 MG TAB PO SCH ×2 (05:26→17:13)
[2022-07-10 06:05] LABS: Basophils # (auto) 0 10 ^3/uL (0-0.2); Basophils % (auto) 0.1 % (0.0-2.0); Eosinophils # (auto) 0.1 10 ^3/uL (0-0.8); Eosinophils % (auto) 0.7 % (0.0-7.0); Hematocrit 48.4 % (36.0-46.0); Lymphocytes # (auto) 1.8 10 ^3/uL (0.4-5.4); Lymphocytes % (auto) 16.3 % (10.0-50.0); Mean Corpuscular Hemoglobin 31.9 pg (28.0-32.0); Mean Corpuscular Hgb Conc. 33.1 g/dL (32.0-36.0); Mean Corpuscular Volume 96.4 fL (80.0-100.0); Monocytes # (auto) 1.2 10 ^3/uL (0-1.3); Monocytes % (auto) 11.3 % (0.0-12.0); Neutrophils # (auto) 7.8 10 ^3/uL (1.6-8.6); Neutrophils % (auto) 71.6 % (37.0-80.0); Nucleated Red Blood Cells % 0.1 %; Red Blood Cells 5.03 10^6/uL (4.0-5.20); Red Cell Distribution Width 12.9 % (11.8-14.3); White Blood Cell 10.9 10^3/uL (4.4-10.8)
[2022-07-10 06:30] LABS: Calcium 9.5 mg/dL (8.5-10.1); Potassium 3.7 mmol/L (3.5-5.1)
[2022-07-10 06:33] LABS: BUN/Creatinine Ratio 34.1
[2022-07-10 09:00] VITALS: BP 128/85
[2022-07-10] MEDS: LOSARTAN POTASSIUM PO SCH (09:43)
[2022-07-10] MEDS: methylPREDNISolone SOD SUCC 40 MG/ML VL IV SCH ×2 (09:43→20:55)
[2022-07-10] MEDS: HYDROCHLO PO SCH (09:43)
[2022-07-10] MEDS: DULoxetine HCL 30 MG CAP PO SCH (09:44)
[2022-07-10] MEDS: GEMFIBROZIL 600 MG TAB PO SCH ×2 (09:44→20:55)
[2022-07-10] MEDS: MAGNESIUM OXIDE 400 MG TAB PO SCH ×2 (09:44→20:56)
[2022-07-10] MEDS: ENOXAPARIN SOD 100 MG/1 ML SYRINGE SC SCH (09:45)
[2022-07-10] MEDS: NICOTINE 7MG/24HR TOPICAL PATCH TD SCH (09:46)
[2022-07-10] MEDS: CARVEDILOL 12.5 MG TAB PO SCH ×2 (09:53→20:54)
[2022-07-10 12:42] VITALS: BP 128/85
[2022-07-10 16:05] VITALS: BP 121/89
[2022-07-10 17:11] VITALS: BP 111/64
[2022-07-10] MEDS: TEMAZEPAM 15 MG CAP PO SCH (21:00)
[2022-07-10 22:00] VITALS: BP 107/56
[2022-07-11] MEDS ORDERED: ALBUTEROL SULF 2.5 MG/0.5ML(0.5%) NEB SOLN NEB PRN
[2022-07-11] MEDS ORDERED: IPRATROPIUM BROM 0.5 MG/2.5ML INH SOL NEB PRN
[2022-07-11 05:00] VITALS: BP 114/87
[2022-07-11] MEDS: PIPERACILLIN-TAZOB 3.375GM 100 ML IV SCH ×2 (06:18→13:38)
[2022-07-11] MEDS: SPIRONOLACTONE 25 MG TAB PO SCH (06:18)
[2022-07-11] MEDS: GABAPENTIN 100 MG CAP PO SCH ×2 (06:18→13:38)
[2022-07-11 08:00] VITALS: BP 130/76
[2022-07-11 08:33] VITALS: BP 130/76
[2022-07-11] MEDS: HYDROcodone-ACET 10/325MG TAB PO PRN ×2 (09:07→13:38)
[2022-07-11] MEDS: GEMFIBROZIL 600 MG TAB PO SCH (09:09)
[2022-07-11] MEDS: DULoxetine HCL 30 MG CAP PO SCH (09:09)
[2022-07-11] MEDS: CARVEDILOL 12.5 MG TAB PO SCH (09:10)
[2022-07-11] MEDS: methylPREDNISolone SOD SUCC 40 MG/ML VL IV SCH (09:10)
[2022-07-11] MEDS: ENOXAPARIN SOD 100 MG/1 ML SYRINGE SC SCH (09:11)
[2022-07-11] MEDS: NICOTINE 7MG/24HR TOPICAL PATCH TD SCH (09:11)
[2022-07-11] MEDS: SODIUM CHLOR 0.9% PF (SALINE LOCK) 10ML VIAL/SYR IV SCH (09:12)
[2022-07-11] MEDS: HYDROCHLO PO SCH (09:12)
[2022-07-11] MEDS: LOSARTAN POTASSIUM PO SCH (09:12)
[2022-07-11] MEDS: MAGNESIUM OXIDE 400 MG TAB PO SCH (09:19)
[2022-07-11 13:00] VITALS: BP 105/69
[2022-07-11] MEDS ORDERED: CAR125T PO (16:26)
[2022-07-11] MEDS ORDERED: GEMF-19 PO (16:26)
[2022-07-11] MEDS ORDERED: SPIR25TA PO (16:26)
[2022-07-11] MEDS ORDERED: GAB100C PO (16:26)
[2022-07-11] MEDS ORDERED: DULO-141 PO (16:26)
[2022-07-11] MEDS ORDERED: IPR002IS NEB (16:26)
[2022-07-11] MEDS ORDERED: ALB5IS NEB (16:26)
[2022-07-11] MEDS ORDERED: MAGN241.4 PO (16:26)
[2022-07-11] MEDS ORDERED: QUET50TA PO (16:27)
[2022-07-11] MEDS ORDERED: PRED20TA2 PO (16:30)
[2022-07-11 16:51] VITALS: BP 105/69
[2022-07-11 17:00] VITALS: BP 120/77
== END 2022-07-11 17:35 | disposition home health service (06) | DRG 130 ==
LOC: EDBD 12:02 → ER 12:02 → TELE 18:54 → ICU WEST 06-30 16:48 → TELE-WESTW 07-07 20:20
PROVIDERS: ADMIT Registered Nurse; ATTEND Hospitalist
PROC: 5A1955Z Respiratory Ventilation, Greater than 96 Consecutive Hours (ICD-10-PCS; principal; 2022-06-30)
PROC: 0BH17EZ Insertion of Endotracheal Airway into Trachea, Via Natural or Artificial Opening (ICD-10-PCS; 2022-06-30)
PROC: 02HV33Z Insertion of Infusion Device into Superior Vena Cava, Percutaneous Approach (ICD-10-PCS; 2022-06-30)
PROC: B548ZZA Ultrasonography of Superior Vena Cava, Guidance (ICD-10-PCS; 2022-06-30)
PROC: 5A09357 Assistance with Respiratory Ventilation, Less than 24 Consecutive Hours, Continuous Positive Airway Pressure (ICD-10-PCS; 2022-06-30)
PROC: 5A09357 Assistance with Respiratory Ventilation, Less than 24 Consecutive Hours, Continuous Positive Airway Pressure (ICD-10-PCS; 2022-07-07)
PROC: 5A09357 Assistance with Respiratory Ventilation, Less than 24 Consecutive Hours, Continuous Positive Airway Pressure (ICD-10-PCS; 2022-07-08)
DX: J96.01 Acute respiratory failure with hypoxia (principal); G93.41 Metabolic encephalopathy; G93.1 Anoxic brain damage, not elsewhere classified; J18.9 Pneumonia, unspecified organism; E87.29 Other acidosis; I11.0 Hypertensive heart disease with heart failure; E66.2 Morbid (severe) obesity with alveolar hypoventilation; I50.32 Chronic diastolic (congestive) heart failure; Z20.822 Contact with and (suspected) exposure to COVID-19; J44.0 Chronic obstructive pulmonary disease with (acute) lower respiratory infection; B34.9 Viral infection, unspecified; N39.0 Urinary tract infection, site not specified; E78.5 Hyperlipidemia, unspecified; F32.A Depression, unspecified; G62.9 Polyneuropathy, unspecified; J98.11 Atelectasis; F11.10 Opioid abuse, uncomplicated; K43.9 Ventral hernia without obstruction or gangrene; Z79.01 Long term (current) use of anticoagulants; Z79.899 Other long term (current) drug therapy; Z80.49 Family history of malignant neoplasm of other genital organs; Z81.8 Family history of other mental and behavioral disorders; Z82.49 Family history of ischemic heart disease and other diseases of the circulatory system; Z82.5 Family history of asthma and other chronic lower respiratory diseases; Z83.3 Family history of diabetes mellitus; Z68.42 Body mass index [BMI] 45.0-49.9, adult; Z72.0 Tobacco use
CPT/HCPCS: 36415; 36569; 36600; 70450; 70551; 71045; 71275; 73020; 80048; 80053; 80061; 80076; 80307; 81001; 82140; 82248; 82607; 82746; 82784; 82805; 83036; 83605; 83735; 83880; 84439; 84443; 84484; 85007; 85025; 85027; 85379; 85610; 85730; 86334; 86704; 86706; 86708; 86803; 87040; 87070; 87077; 87081; 87086; 87088; 87186; 87205; 87340; 87426; 87804; 92610; 93005; 93306; 93970; 94002; 94003; 94640; 94660; 95819; 96365; 96372; 97163; 99291; C9113; G0378; J0696; J2250; J2405; J2543; J2704; J7060

== ENCOUNTER 2023-06-20 09:22 | Inpatient (IN) | payer MEDICAID ==
[~2023-06-20] VITALS: Ht 177.8 cm; Wt 112.0 kg
[2023-06-20] VITALS (7 sets, daily range): PULSE 69–116; RESP 15–22; O2SAT 91–96
[~2023-06-20 09:22] MED LIST changes: -AZIT250T9 PO; -CAR125T; +CAR125T PO; +DULO-141 PO; -DULO60CA PO; -FURO1TAB31 PO; +GAB100C PO; -GEMF-19 PO; +GEMF-66 PO; +HYDR-4072 PO; -HYDR50TA69 PO; -IBUP400T23 PO; +IPR002IS NEB; -LOSA100T25 PO; +MAGN241.4 PO; -MAGN400T40 PO; -POTA10TA32 PO; +PRED20TA2 PO; -PROM25TA5 PO; -QUET300T24 PO; +QUET50TA PO; -QUET50TA27 PO; +SPIR25TA PO; -SPIR50TA5 PO
[2023-06-20 10:21] LABS: Basophils # (auto) 0.1 10 ^3/uL (0-0.2); Basophils % (auto) 0.7 % (0.0-2.0); Eosinophils # (auto) 0.1 10 ^3/uL (0-0.8); Eosinophils % (auto) 1.1 % (0.0-7.0); Hematocrit 43.3 % (36.0-46.0); Hemoglobin 14.5 g/dL (12.2-16.2); Lymphocytes # (auto) 1.1 10 ^3/uL (0.4-5.4); Lymphocytes % (auto) 10.3 % (10.0-50.0); Mean Corpuscular Hemoglobin 33.6 pg (28.0-32.0); Mean Corpuscular Hgb Conc. 33.5 g/dL (32.0-36.0); Mean Corpuscular Volume 100.1 fL (80.0-100.0); Monocytes # (auto) 0.7 10 ^3/uL (0-1.3); Monocytes % (auto) 6.7 % (0.0-12.0); Neutrophils # (auto) 8.7 10 ^3/uL (1.6-8.6); Neutrophils % (auto) 81.2 % (37.0-80.0); Red Blood Cells 4.32 10^6/uL (4.0-5.20); White Blood Cell 10.7 10^3/uL (4.4-10.8)
[2023-06-20 10:39] LABS: Alanine Aminotransferase 19 U/L (7-40); Albumin 4.7 g/dL (3.2-4.8); Alkaline Phosphatase 64 U/L (46-116); Anion Gap 5 (5-15); Aspartate Aminotransferase 31 U/L (13-40); BUN/Creatinine Ratio 21.2 (10.0-20.0); Bilirubin, Total 0.5 mg/dL (0.2-1.0); Blood Urea Nitrogen 18 mg/dL (9-23); Carbon Dioxide 37 mmol/L (20-30); Chloride 96 mmol/L (98-107); Glucose 126 mg/dL (74-106); Potassium 3.7 mmol/L (3.5-5.1); Sodium 138 mmol/L (136-145); Total Protein 7.2 g/dL (5.7-8.2)
[2023-06-20 12:09] LABS: Amphetamine Screen, Urine Neg (NEGATIVE)
[2023-06-20 12:10] LABS: Benzodiazephine Screen, Urine Neg (NEGATIVE)
[2023-06-20 12:12] LABS: Barbiturate Scree,Urine Neg (NEGATIVE); Cannabinoid Screen, Urine Neg (NEGATIVE); Cocaine Screen, Urine Neg (NEGATIVE); Opiate Scree,Urine Pos (NEGATIVE); Phencyclidine Screen, Urine Neg (NEGATIVE)
[2023-06-20 12:13] LABS: Base Excess 9.8 mmol/L (-2.0-2.0)
[2023-06-20] MEDS ORDERED: levoFLOXacin 750MG 150 ML IV ONE (12:30)
[2023-06-20] MEDS ORDERED: SODIUM CHLORIDE 0.9% 1,000 ML IV ONE (12:30)
[2023-06-20 12:52] LABS: Acetaminophen < 2.0 UG/ML (10.0-20.0)
[2023-06-20 12:59] LABS: Salicylate < 3.0 mg/dL (2.8-20.0)
[2023-06-20 13:56] LABS: Urine Bacteria NONE SEEN /hpf (None Seen); Urine Blood Negative /uL (Negative); Urine Clarity Clear (Clear); Urine Color Yellow (Yellow); Urine Protein, UAD 1+ (Negative); Urine Specific Gravity 1.018 (1.001-1.035); Urine Urobilinogen Normal (Negative); Urine WBC 1 /hpf (0 - 5)
[2023-06-20] MEDS: ENOXAPARIN SOD 40 MG/0.4 ML SYRINGE SC SCH (14:30)
[2023-06-20] MEDS: methylPREDNISolone SOD SUCC 125 MG/2 ML VL IV SCH (16:08)
[2023-06-20] MEDS: FUROSEMIDE 20 MG/2 ML VIAL IV SCH (16:08)
[2023-06-20] MEDS: SPIRONOLACTONE 25 MG TAB PO SCH (16:09)
[2023-06-20] MEDS ORDERED: LACTULOSE 20Gm/30ML SOLN PO ONE (17:00)
[2023-06-20] MEDS ORDERED: PATIENTS OWN MEDICATION (Quetiapine Fumerate (Seroquel) 1 TAB) PO SCH (18:00)
[2023-06-20] MEDS: ALBUTEROL MEDNEB 2.5 mg/3ml NEB NEB SCH ×2 (18:34→22:31)
[2023-06-20] MEDS: IPRATROPIUM BROM 0.5 MG/2.5ML INH SOL NEB SCH ×2 (18:35→22:31)
[2023-06-20] MEDS: CARVEDILOL 12.5 MG TAB PO SCH (21:45)
[2023-06-20] MEDS: GABAPENTIN 100 MG CAP PO SCH (21:46)
[2023-06-20] MEDS: GEMFIBROZIL 600 MG TAB PO SCH (21:46)
[2023-06-20] MEDS: QUEtiapine FUMARATE 25 MG TAB PO SCH (21:46)
[2023-06-20] MEDS ORDERED: TEMAZEPAM PO SCH (22:00)
[2023-06-21] VITALS (16 sets, daily range): BP systolic 115–139; BP diastolic 58–84; PULSE 77–102; RESP 16–24; TEMP 97.9–98.3; O2SAT 81–100
[2023-06-21] MEDS: methylPREDNISolone SOD SUCC 125 MG/2 ML VL IV SCH ×3 (00:40→17:26)
[2023-06-21] MEDS: LACTULOSE 20Gm/30ML SOLN PO SCH ×4 (00:40→17:16)
[2023-06-21] MEDS: HYDROcodone-ACET 5/325MG TAB PO PRN ×4 (01:29→21:32)
[2023-06-21] MEDS: TEMAZEPAM 15 MG CAP PO PRN ×2 (01:29→21:35)
[2023-06-21] MEDS: ALBUTEROL MEDNEB 2.5 mg/3ml NEB NEB SCH ×6 (02:00→22:00)
[2023-06-21] MEDS: IPRATROPIUM BROM 0.5 MG/2.5ML INH SOL NEB SCH ×6 (02:00→22:00)
[2023-06-21 02:05] LABS: COVID19 ANTIGEN SOFIA FIA NEGATIVE (NEGATIVE); Rapid Influenza A Negative (Negative); Rapid Influenza B Negative (Negative)
[2023-06-21 05:36] LABS: Alanine Aminotransferase 21 U/L (7-40); Albumin 4.5 g/dL (3.2-4.8); Alkaline Phosphatase 67 U/L (46-116); Anion Gap 7 (5-15); Aspartate Aminotransferase 30 U/L (13-40); BUN/Creatinine Ratio 18.3 (10.0-20.0); Blood Urea Nitrogen 17 mg/dL (9-23); Calcium 9.7 mg/dL (8.7-10.4); Carbon Dioxide 33 mmol/L (20-30); Chloride 99 mmol/L (98-107); Potassium 3.3 mmol/L (3.5-5.1); Sodium 139 mmol/L (136-145)
[2023-06-21 05:37] LABS: Bilirubin, Total 0.5 mg/dL (0.2-1.0); Total Protein 6.8 g/dL (5.7-8.2)
[2023-06-21 05:51] LABS: Basophils # (auto) 0 10 ^3/uL (0-0.2); Basophils % (auto) 0.1 % (0.0-2.0); Eosinophils # (auto) 0 10 ^3/uL (0-0.8); Eosinophils % (auto) 0.1 % (0.0-7.0); Hematocrit 39.7 % (36.0-46.0); Hemoglobin 13.3 g/dL (12.2-16.2); Lymphocytes # (auto) 0.8 10 ^3/uL (0.4-5.4); Lymphocytes % (auto) 9.6 % (10.0-50.0); Mean Corpuscular Hemoglobin 33.6 pg (28.0-32.0); Mean Corpuscular Hgb Conc. 33.6 g/dL (32.0-36.0); Mean Corpuscular Volume 99.9 fL (80.0-100.0); Monocytes # (auto) 0.1 10 ^3/uL (0-1.3); Monocytes % (auto) 1.6 % (0.0-12.0); Neutrophils # (auto) 7.1 10 ^3/uL (1.6-8.6); Neutrophils % (auto) 88.6 % (37.0-80.0); Red Blood Cells 3.97 10^6/uL (4.0-5.20); Red Cell Distribution Width 15.1 % (11.8-14.3)
[2023-06-21 05:52] LABS: Glucose 158 mg/dL (74-106)
[2023-06-21] MEDS: GABAPENTIN 100 MG CAP PO SCH ×3 (06:23→21:30)
[2023-06-21] MEDS: SPIRONOLACTONE 25 MG TAB PO SCH ×2 (06:23→17:24)
[2023-06-21] MEDS: FUROSEMIDE 20 MG/2 ML VIAL IV SCH ×2 (06:24→17:26)
[2023-06-21] MEDS ORDERED: POTASSIUM EFFERVESENT TAB 25 MEQ PO ONE (08:00)
[2023-06-21] MEDS: ENOXAPARIN SOD 40 MG/0.4 ML SYRINGE SC SCH (10:00)
[2023-06-21] MEDS: NICOTINE 21MG/24 HR TOPICAL PATCH TD SCH (10:00)
[2023-06-21] MEDS: levoFLOXacin 500MG 100 ML IV SCH (10:50)
[2023-06-21] MEDS: GEMFIBROZIL 600 MG TAB PO SCH ×2 (10:52→21:31)
[2023-06-21] MEDS: DULoxetine HCL 30 MG CAP PO SCH (10:53)
[2023-06-21] MEDS: CARVEDILOL 12.5 MG TAB PO SCH ×2 (10:53→21:30)
[2023-06-21] MEDS: PANTOPRAZOLE 40 MG/10 ML VIAL INJ IV SCH (10:54)
[2023-06-21] MEDS: QUEtiapine FUMARATE 25 MG TAB PO SCH (21:31)
[2023-06-22] VITALS (16 sets, daily range): BP systolic 114–139; BP diastolic 55–75; PULSE 73–101; RESP 16–22; TEMP 97.7–98.5; O2SAT 90–98
[2023-06-22] MEDS: methylPREDNISolone SOD SUCC 125 MG/2 ML VL IV SCH ×4 (00:22→21:12)
[2023-06-22] MEDS: LACTULOSE 20Gm/30ML SOLN PO SCH ×4 (00:22→17:07)
[2023-06-22] MEDS: IPRATROPIUM BROM 0.5 MG/2.5ML INH SOL NEB SCH ×6 (02:00→22:00)
[2023-06-22] MEDS: ALBUTEROL MEDNEB 2.5 mg/3ml NEB NEB SCH ×6 (02:00→22:00)
[2023-06-22] MEDS: SPIRONOLACTONE 25 MG TAB PO SCH ×2 (05:38→17:39)
[2023-06-22] MEDS: HYDROcodone-ACET 5/325MG TAB PO PRN ×3 (05:38→17:52)
[2023-06-22] MEDS: GABAPENTIN 100 MG CAP PO SCH ×3 (05:38→21:13)
[2023-06-22] MEDS: FUROSEMIDE 20 MG/2 ML VIAL IV SCH ×2 (05:39→17:41)
[2023-06-22] MEDS: levoFLOXacin 500MG 100 ML IV SCH (08:18)
[2023-06-22] MEDS: PANTOPRAZOLE 40 MG/10 ML VIAL INJ IV SCH (08:18)
[2023-06-22] MEDS: ENOXAPARIN SOD 40 MG/0.4 ML SYRINGE SC SCH (08:18)
[2023-06-22] MEDS: DULoxetine HCL 30 MG CAP PO SCH (08:19)
[2023-06-22] MEDS: CARVEDILOL 12.5 MG TAB PO SCH ×2 (08:19→21:15)
[2023-06-22] MEDS: NICOTINE 21MG/24 HR TOPICAL PATCH TD SCH (08:24)
[2023-06-22] MEDS: GEMFIBROZIL 600 MG TAB PO SCH ×2 (08:24→21:12)
[2023-06-22 08:33] LABS: Basophils # (auto) 0.1 10 ^3/uL (0-0.2); Basophils % (auto) 0.4 % (0.0-2.0); Eosinophils # (auto) 0 10 ^3/uL (0-0.8); Eosinophils % (auto) 0.1 % (0.0-7.0); Hematocrit 43.6 % (36.0-46.0); Hemoglobin 14.5 g/dL (12.2-16.2); Lymphocytes # (auto) 1.4 10 ^3/uL (0.4-5.4); Mean Corpuscular Hemoglobin 32.9 pg (28.0-32.0); Mean Corpuscular Hgb Conc. 33.2 g/dL (32.0-36.0); Mean Corpuscular Volume 99.1 fL (80.0-100.0); Monocytes # (auto) 0.7 10 ^3/uL (0-1.3); Monocytes % (auto) 5.2 % (0.0-12.0); Neutrophils # (auto) 11.7 10 ^3/uL (1.6-8.6); Neutrophils % (auto) 84.3 % (37.0-80.0); Nucleated Red Blood Cells % 0.1 %; Red Cell Distribution Width 15.1 % (11.8-14.3); White Blood Cell 13.9 10^3/uL (4.4-10.8)
[2023-06-22 08:37] LABS: Anion Gap 7 (5-15); Carbon Dioxide 36 mmol/L (20-30); Chloride 94 mmol/L (98-107); Potassium 3.5 mmol/L (3.5-5.1); Sodium 137 mmol/L (136-145)
[2023-06-22 08:38] LABS: Calcium 10.3 mg/dL (8.5-10.1)
[2023-06-22 08:42] LABS: BUN/Creatinine Ratio 23.3 (10.0-20.0); Blood Urea Nitrogen 21 mg/dL (9-23); Glucose 136 mg/dL (74-106)
[2023-06-22 08:50] LABS: Lactic Acid w/Reflex 2.3 mmol/L (0.4-2.0)
[2023-06-22] MEDS ORDERED: VANCOMYCIN PER PHARMACY 0 MG IV SCH (19:30)
[2023-06-22] MEDS ORDERED: SODIUM CHLORIDE 0.9% 1,000 ML IV ONE (19:45)
[2023-06-22] MEDS: HYDROcodone-ACET 10/325MG TAB PO PRN (20:41)
[2023-06-22] MEDS: VANCOMYCIN 1GM/250ML 250 ML IV SCH ×2 (20:41→23:02)
[2023-06-22] MEDS: QUEtiapine FUMARATE 25 MG TAB PO SCH (21:12)
[2023-06-22] MEDS: TEMAZEPAM 15 MG CAP PO PRN (21:12)
[2023-06-22] MEDS ORDERED: VANCOMYCIN 1GM/250ML 250 ML IV ONE (22:45)
[2023-06-23] VITALS (7 sets, daily range): BP systolic 138–142; BP diastolic 75–81; PULSE 64–70; RESP 19–22; TEMP 97.4–97.8; O2SAT 90–92
[2023-06-23] MEDS: ALBUTEROL MEDNEB 2.5 mg/3ml NEB NEB SCH ×3 (02:00→09:51)
[2023-06-23] MEDS: IPRATROPIUM BROM 0.5 MG/2.5ML INH SOL NEB SCH ×3 (02:00→09:51)
[2023-06-23] MEDS: HYDROcodone-ACET 10/325MG TAB PO PRN ×2 (03:18→10:54)
[2023-06-23] MEDS ORDERED: VANCOMYCIN 1GM/250ML 250 ML IV SCH (06:00)
[2023-06-23] MEDS: LACTULOSE 20Gm/30ML SOLN PO SCH ×2 (06:00)
[2023-06-23] MEDS: GABAPENTIN 100 MG CAP PO SCH (06:12)
[2023-06-23] MEDS: FUROSEMIDE 20 MG/2 ML VIAL IV SCH (06:12)
[2023-06-23] MEDS: SPIRONOLACTONE 25 MG TAB PO SCH (06:12)
[2023-06-23 07:54] LABS: Hematocrit 42.4 % (36.0-46.0); Hemoglobin 14.2 g/dL (12.2-16.2); Mean Corpuscular Hemoglobin 33.5 pg (28.0-32.0); Mean Corpuscular Hgb Conc. 33.5 g/dL (32.0-36.0); Mean Corpuscular Volume 100.1 fL (80.0-100.0); Red Blood Cells 4.23 10^6/uL (4.0-5.20); Red Cell Distribution Width 15.3 % (11.8-14.3); White Blood Cell 12.3 10^3/uL (4.4-10.8)
[2023-06-23 08:04] LABS: Lactic Acid w/Reflex 2.8 mmol/L (0.4-2.0)
[2023-06-23 08:06] LABS: Anion Gap 11 (5-15); Carbon Dioxide 31 mmol/L (20-30); Chloride 98 mmol/L (98-107); Potassium 3.4 mmol/L (3.5-5.1); Sodium 140 mmol/L (136-145)
[2023-06-23 08:11] LABS: Glucose 135 mg/dL (74-106)
[2023-06-23 08:12] LABS: BUN/Creatinine Ratio 26.3 (10.0-20.0); Blood Urea Nitrogen 26 mg/dL (9-23)
[2023-06-23 08:38] LABS: Band Neutrophils % (manual) 0; Basophils % (manual) 0 (0.0-2.0); Blast Cells 0; Eosinophils % (manual) 0 (0-7); Metamyelocytes % 0; Myelocytes % 0; Promyelocytes % 0; Reactive Lymphocytes 0
[2023-06-23] MEDS ORDERED: POTASSIUM EFFERVESENT TAB 25 MEQ PO ONE (09:00)
[2023-06-23 09:47] LABS: Lymphocytes % (manual) 11 (10.0-50.0); Monocytes % (manual) 9 (0-12)
[2023-06-23 09:48] LABS: Platelet Estimate Adequate; RBC Morphology Normal
[2023-06-23] MEDS: ENOXAPARIN SOD 40 MG/0.4 ML SYRINGE SC SCH (10:00)
[2023-06-23] MEDS: levoFLOXacin 500MG 100 ML IV SCH (10:00)
[2023-06-23] MEDS: NICOTINE 21MG/24 HR TOPICAL PATCH TD SCH (10:00)
[2023-06-23] MEDS ORDERED: PRED20TA2 PO (10:34)
[2023-06-23] MEDS ORDERED: LEVO750T40 PO (10:34)
[2023-06-23] MEDS ORDERED: UMEC1AER IN (10:34)
[2023-06-23] MEDS: DULoxetine HCL 30 MG CAP PO SCH (10:51)
[2023-06-23] MEDS: CARVEDILOL 12.5 MG TAB PO SCH (10:54)
[2023-06-23] MEDS: GEMFIBROZIL 600 MG TAB PO SCH (10:55)
[2023-06-23] MEDS: methylPREDNISolone SOD SUCC 125 MG/2 ML VL IV SCH (10:57)
== END 2023-06-23 14:25 | disposition home or self-care (01) | DRG 137 ==
LOC: EDBD 09:22 → ER 09:22 → TELE 14:38 → TELE-CENTR 06-21 08:25
PROVIDERS: ADMIT Nurse Practitioner Family; ATTEND Internal Medicine Pulmonary Disease
PROC: 5A09357 Assistance with Respiratory Ventilation, Less than 24 Consecutive Hours, Continuous Positive Airway Pressure (ICD-10-PCS; principal; 2023-06-20)
PROC: 5A09357 Assistance with Respiratory Ventilation, Less than 24 Consecutive Hours, Continuous Positive Airway Pressure (ICD-10-PCS; 2023-06-21)
DX: J15.69 Pneumonia due to other Gram-negative bacteria (principal); J96.21 Acute and chronic respiratory failure with hypoxia; G92.8 Other toxic encephalopathy; I50.43 Acute on chronic combined systolic (congestive) and diastolic (congestive) heart failure; I11.0 Hypertensive heart disease with heart failure; K76.82 Hepatic encephalopathy; E86.0 Dehydration; J15.9 Unspecified bacterial pneumonia; Z20.822 Contact with and (suspected) exposure to COVID-19; J44.1 Chronic obstructive pulmonary disease with (acute) exacerbation; E78.5 Hyperlipidemia, unspecified; E66.01 Morbid (severe) obesity due to excess calories; Z68.35 Body mass index [BMI] 35.0-35.9, adult; F17.210 Nicotine dependence, cigarettes, uncomplicated; J44.0 Chronic obstructive pulmonary disease with (acute) lower respiratory infection; J96.22 Acute and chronic respiratory failure with hypercapnia; F41.9 Anxiety disorder, unspecified; F32.A Depression, unspecified; G89.29 Other chronic pain; E87.6 Hypokalemia; Z79.82 Long term (current) use of aspirin; Z79.899 Other long term (current) drug therapy; Z80.9 Family history of malignant neoplasm, unspecified; Z82.49 Family history of ischemic heart disease and other diseases of the circulatory system; Z85.41 Personal history of malignant neoplasm of cervix uteri; Z71.6 Tobacco abuse counseling
CPT/HCPCS: 36415; 36600; 70450; 71045; 80048; 80053; 80307; 80320; 80329; 81001; 82140; 82805; 83605; 83690; 83735; 83880; 84484; 85007; 85025; 85027; 85379; 87040; 87070; 87077; 87186; 87205; 87426; 87804; 93005; 93306; 94640; 94660; 96365; 96372; 99291; C9113; G0378; J1956

== ENCOUNTER 2024-03-19 12:51 | Inpatient (IN) | payer MEDICAID ==
[~2024-03-19] VITALS: Ht 167.6 cm; Wt 100.1 kg
[~2024-03-19 12:51] MED LIST changes: -CAR125T PO; +CARV-216 PO; +LEVO750T40 PO; +UMEC1AER IN
[2024-03-19 13:54] LABS: Basophils # (auto) 0.1 10 ^3/uL (0-0.2); Basophils % (auto) 0.4 % (0.0-2.0); Eosinophils # (auto) 0.3 10 ^3/uL (0-0.8); Eosinophils % (auto) 2.3 % (0.0-7.0); Hematocrit 49.3 % (36.0-46.0); Hemoglobin 16.9 g/dL (12.2-16.2); Lymphocytes # (auto) 2.3 10 ^3/uL (0.4-5.4); Lymphocytes % (auto) 19.8 % (10.0-50.0); Mean Corpuscular Hemoglobin 33.9 pg (28.0-32.0); Mean Corpuscular Hgb Conc. 34.3 g/dL (32.0-36.0); Mean Corpuscular Volume 99.1 fL (80.0-100.0); Monocytes # (auto) 1.4 10 ^3/uL (0-1.3); Monocytes % (auto) 12.1 % (0.0-12.0); Neutrophils # (auto) 7.5 10 ^3/uL (1.6-8.6); Neutrophils % (auto) 65.4 % (37.0-80.0); Platelet Count (auto) 230 10^3/uL (140-450); Red Blood Cells 4.97 10^6/uL (4.0-5.20); White Blood Cell 11.5 10^3/uL (4.4-10.8)
[2024-03-19 14:19] LABS: Alanine Aminotransferase 44 U/L (7-40); Alkaline Phosphatase 83 U/L (46-116); Anion Gap 11 (5-15); Aspartate Aminotransferase 124 U/L (13-40); BUN/Creatinine Ratio 36.4 (10.0-20.0); Bilirubin, Total 0.5 mg/dL (0.2-1.0); Blood Urea Nitrogen 48 mg/dL (9-23); Calcium 9.5 mg/dL (8.7-10.4); Carbon Dioxide 26 mmol/L (20-30); Chloride 105 mmol/L (98-107); Glucose 88 mg/dL (74-106); Magnesium 2.1 mg/dL (1.6-2.6); Sodium 142 mmol/L (136-145); Total Protein 6.1 g/dL (5.7-8.2)
[2024-03-19 14:39] LABS: Potassium 2.4 mmol/L (3.5-5.1)
[2024-03-19] MEDS: POTASSIUM CHL 20 Meq TABLET PO ONE (16:49)
[2024-03-19 16:59] VITALS: PULSE 80; RESP 16; O2SAT 92
[2024-03-19] MEDS: VANCOMYCIN PER PHARMACY 0 MG IV ONE (17:45)
[2024-03-19 18:26] LABS: Amphetamine Screen, Urine Neg (NEGATIVE); Barbiturate Scree,Urine Neg (NEGATIVE); Benzodiazephine Screen, Urine Neg (NEGATIVE); Cannabinoid Screen, Urine Neg (NEGATIVE); Cocaine Screen, Urine Neg (NEGATIVE); Opiate Scree,Urine Neg (NEGATIVE); Phencyclidine Screen, Urine Neg (NEGATIVE)
[2024-03-19 18:31] LABS: Urine Bacteria FEW /hpf (None Seen); Urine Blood 2+ /uL (Negative); Urine Clarity Clear (Clear); Urine Color Light-Yellow (Yellow); Urine Protein, UAD TRACE (Negative); Urine Specific Gravity 1.012 (1.001-1.035); Urine Urobilinogen Normal (Negative); Urine WBC 2 /hpf (0 - 5)
[2024-03-19] MEDS: VANCOMYCIN 1GM/200ML 200 ML IV SCH (18:31)
[2024-03-19] MEDS ORDERED: VANCOMYCIN PER PHARMACY 0 MG IV SCH (19:30)
[2024-03-19] MEDS ORDERED: HYDROcodone-ACET 5/325MG TAB PO PRN (19:30)
[2024-03-19] MEDS ORDERED: ACETAMINOPHEN 325 MG TAB PO PRN (19:30)
[2024-03-19] MEDS ORDERED: ONDANSETRON HCL 4 MG/2 ML VIAL IV PRN (19:30)
[2024-03-19] MEDS: ALBUTEROL SULF 2.5 MG/0.5ML(0.5%) NEB SOLN NEB SCH (19:30)
[2024-03-19] MEDS ORDERED: DOCUSATE SOD 100 MG CAP PO PRN (19:30)
[2024-03-19] MEDS ORDERED: HYDROmorphone HCL 2 MG/ML VL/or syr IV PRN (19:30)
[2024-03-19] MEDS: IPRATROPIUM BROM 0.5 MG/2.5ML INH SOL HHN SCH (19:30)
[2024-03-19 20:07] LABS: Alanine Aminotransferase 45 U/L (7-40); Alkaline Phosphatase 78 U/L (46-116); Anion Gap 16 (5-15); Aspartate Aminotransferase 122 U/L (13-40); Calcium 9.9 mg/dL (8.7-10.4); Carbon Dioxide 21 mmol/L (20-30); Chloride 105 mmol/L (98-107); Glucose 93 mg/dL (74-106); Magnesium 2.3 mg/dL (1.6-2.6); Sodium 142 mmol/L (136-145)
[2024-03-19 20:08] LABS: Bilirubin, Total 0.6 mg/dL (0.2-1.0); Total Protein 6.6 g/dL (5.7-8.2)
[2024-03-19 20:10] LABS: Blood Urea Nitrogen 34 mg/dL (9-23)
[2024-03-19 20:12] LABS: Potassium 2.5 mmol/L (3.5-5.1)
[2024-03-19 21:03] LABS: Erythrocyte Sedimentation Rate 20 mm/hr (0-20)
[2024-03-19 21:14] LABS: Base Excess -0.5 mmol/L (-2.0-3.0)
[2024-03-19] MEDS: SODIUM CHLOR 0.9% PF (SALINE LOCK) 10ML VIAL/SYR IV SCH (22:00)
[2024-03-19] MEDS: CARVEDILOL 12.5 MG TAB PO SCH (23:17)
[2024-03-19] MEDS: GABAPENTIN 100 MG CAP PO SCH (23:18)
[2024-03-19] MEDS: MAGNESIUM OXIDE 400 MG TAB PO SCH (23:19)
[2024-03-19] MEDS: GEMFIBROZIL 600 MG TAB PO SCH (23:19)
[2024-03-19 23:30] VITALS: BP 91/58; PULSE 78; RESP 16; TEMP 97.9; O2SAT 92
[2024-03-19 23:33] VITALS: BP 107/72; PULSE 73; RESP 18; TEMP 98.7; O2SAT 93
[2024-03-19 23:42] VITALS: PULSE 73; RESP 18; O2SAT 93
[2024-03-20] VITALS (15 sets, daily range): BP systolic 91–143; BP diastolic 56–92; PULSE 65–100; RESP 14–21; TEMP 97.8–98.9; O2SAT 70–98
[2024-03-20] MEDS ORDERED: PREG150C63 PO (00:09)
[2024-03-20] MEDS ORDERED: ZOLP10TA6 PO (00:09)
[2024-03-20] MEDS ORDERED: FURO40TA4 PO (00:09)
[2024-03-20] MEDS ORDERED: GABA-1251 PO (00:09)
[2024-03-20] MEDS ORDERED: QUET400T13 PO (00:09)
[2024-03-20] MEDS: LACTATED RINGER'S 1,000 ML IV ONE (00:13)
[2024-03-20] MEDS ORDERED: VANCOMYCIN 750mg/150ml 150 ML IV SCH ×2 (00:45→06:00)
[2024-03-20] MEDS: PIPERACILLIN-TAZOB 3.375GM 100 ML IV SCH (02:09)
[2024-03-20] MEDS: SPIRONOLACTONE 25 MG TAB PO SCH (06:00)
[2024-03-20 07:45] LABS: Basophils # (auto) 0 10 ^3/uL (0-0.2); Basophils % (auto) 0.5 % (0.0-2.0); Eosinophils # (auto) 0.2 10 ^3/uL (0-0.8); Eosinophils % (auto) 2.2 % (0.0-7.0); Hematocrit 46.1 % (36.0-46.0); Hemoglobin 15.7 g/dL (12.2-16.2); Lymphocytes # (auto) 1.9 10 ^3/uL (0.4-5.4); Lymphocytes % (auto) 19.6 % (10.0-50.0); Mean Corpuscular Hemoglobin 33.8 pg (28.0-32.0); Mean Corpuscular Hgb Conc. 34.1 g/dL (32.0-36.0); Monocytes % (auto) 10.3 % (0.0-12.0); Neutrophils # (auto) 6.5 10 ^3/uL (1.6-8.6); Neutrophils % (auto) 67.4 % (37.0-80.0); Platelet Count (auto) 192 10^3/uL (140-450); Red Blood Cells 4.65 10^6/uL (4.0-5.20); White Blood Cell 9.7 10^3/uL (4.4-10.8)
[2024-03-20 08:00] LABS: Alanine Aminotransferase 44 U/L (7-40); Albumin 3.4 g/dL (3.2-4.8); Alkaline Phosphatase 67 U/L (46-116); Anion Gap 11 (5-15); Aspartate Aminotransferase 102 U/L (13-40); Blood Urea Nitrogen 34 mg/dL (9-23); Calcium 9.4 mg/dL (8.7-10.4); Carbon Dioxide 25 mmol/L (20-30); Chloride 105 mmol/L (98-107); Glucose 90 mg/dL (74-106); Magnesium 2.2 mg/dL (1.6-2.6); Sodium 141 mmol/L (136-145)
[2024-03-20 08:01] LABS: Bilirubin, Total 0.7 mg/dL (0.2-1.0); Total Protein 5.6 g/dL (5.7-8.2)
[2024-03-20 08:03] LABS: Potassium 2.3 mmol/L (3.5-5.1)
[2024-03-20] MEDS: POTASSIUM CHL 20MEQ/100ML 100 ML IV SCH (10:15)
[2024-03-20] MEDS: VANCOMYCIN 1GM/200ML 200 ML IV SCH (10:26)
[2024-03-20] MEDS: DULoxetine HCL 30 MG CAP PO SCH (10:26)
[2024-03-20] MEDS: ENOXAPARIN SOD 40 MG/0.4 ML SYRINGE SC SCH (10:28)
[2024-03-20] MEDS: PANTOPRAZOLE 40 MG TAB PO ONE (12:25)
[2024-03-20] MEDS: DOXYCYCLINE 100 MG TAB/CAP PO ONE (12:25)
[2024-03-20] MEDS ORDERED: POTASSIUM CHL 20MEQ/100ML 100 ML IV ONE (13:45)
[2024-03-20] MEDS: CEFEPIME 1GM/ 50ML 50 ML IV SCH (15:02)
[2024-03-20] MEDS: POTASSIUM CHLORIDE 20 MEQ, LIDOCAINE 1% (LOCAL ANESTH.) 2 ML in SODIUM CHL 0.9% 100 ML IV ONE (16:38)
[2024-03-20] MEDS: HYDROcodone-ACET 5/325MG TAB PO PRN (17:22)
[2024-03-20] MEDS: QUEtiapine FUMARATE 25 MG TAB PO SCH (17:36)
[2024-03-20] MEDS: DOXYCYCLINE 100 MG TAB/CAP PO SCH (22:12)
[2024-03-21] VITALS (12 sets, daily range): BP systolic 89–116; BP diastolic 50–68; PULSE 65–80; RESP 16–18; TEMP 97.6–98.2; O2SAT 88–98
[2024-03-21 04:48] LABS: COVID19 ANTIGEN SOFIA FIA NEGATIVE (NEGATIVE)
[2024-03-21 04:49] LABS: Rapid Influenza A Negative (Negative); Rapid Influenza B Negative (Negative)
[2024-03-21] MEDS: PANTOPRAZOLE 40 MG TAB PO SCH (06:07)
[2024-03-21 07:11] LABS: Basophils # (auto) 0 10 ^3/uL (0-0.2); Basophils % (auto) 0.5 % (0.0-2.0); Eosinophils # (auto) 0.2 10 ^3/uL (0-0.8); Eosinophils % (auto) 3.1 % (0.0-7.0); Hematocrit 42.5 % (36.0-46.0); Hemoglobin 14.7 g/dL (12.2-16.2); Lymphocytes # (auto) 1.9 10 ^3/uL (0.4-5.4); Lymphocytes % (auto) 25.3 % (10.0-50.0); Mean Corpuscular Hemoglobin 34.1 pg (28.0-32.0); Mean Corpuscular Hgb Conc. 34.5 g/dL (32.0-36.0); Mean Corpuscular Volume 98.7 fL (80.0-100.0); Monocytes % (auto) 12.9 % (0.0-12.0); Neutrophils # (auto) 4.4 10 ^3/uL (1.6-8.6); Neutrophils % (auto) 58.2 % (37.0-80.0); Platelet Count (auto) 177 10^3/uL (140-450); Red Cell Distribution Width 14.6 % (11.8-14.3); White Blood Cell 7.6 10^3/uL (4.4-10.8)
[2024-03-21 07:25] LABS: INR 0.97 (0.9-1.15); Partial Thromboplastin Time 29.2 SEC (24.5-34.5); Prothrombin Time 10.3 sec (9.3-11.8)
[2024-03-21 07:32] LABS: Alanine Aminotransferase 39 U/L (7-40); Albumin 3.3 g/dL (3.2-4.8); Alkaline Phosphatase 67 U/L (46-116); Anion Gap 7 (5-15); Aspartate Aminotransferase 75 U/L (13-40); BUN/Creatinine Ratio 25.3 (10.0-20.0); Bilirubin, Total 0.5 mg/dL (0.2-1.0); Blood Urea Nitrogen 20 mg/dL (9-23); Calcium 9.4 mg/dL (8.7-10.4); Carbon Dioxide 25 mmol/L (20-30); Chloride 108 mmol/L (98-107); Cholesterol 164 mg/dL (< 200); Glucose 73 mg/dL (74-106); HDL Cholesterol 27 mg/dL (40-59); LDL Cholesterol 73 mg/dL (< 100); Magnesium 2.1 mg/dL (1.6-2.6); Potassium 2.6 mmol/L (3.5-5.1); Sodium 140 mmol/L (136-145); Total Protein 5.4 g/dL (5.7-8.2); Triglycerides 320 mg/dL (< 150)
[2024-03-21] MEDS: POTASSIUM CHLORIDE 60 MEQ, LIDOCAINE 1% (LOCAL ANESTH.) 6 ML in SODIUM CHL 0.9% 500 ML IV ONE (09:00)
[2024-03-21 09:01] LABS: Hepatitis B Surface Antigen Negative (Negative)
[2024-03-21 09:22] LABS: Hepatitis A Ab IgM Negative; Hepatitis B Core IgM Negative
[2024-03-21 09:23] LABS: Hepatitis C Antibody Negative (Negative)
[2024-03-21] MEDS ORDERED: ENOXAPARIN SOD 40 MG/0.4 ML SYRINGE SC ONE (15:30)
[2024-03-21] MEDS: ONDANSETRON HCL 4 MG/2 ML VIAL IV PRN (18:13)
[2024-03-22] VITALS (19 sets, daily range): BP systolic 84–107; BP diastolic 45–91; PULSE 60–88; RESP 14–20; TEMP 97.3–99.9; O2SAT 90–100
[2024-03-22 06:30] LABS: Basophils # (auto) 0 10 ^3/uL (0-0.2); Basophils % (auto) 0.6 % (0.0-2.0); Hemoglobin 14.4 g/dL (12.2-16.2); Lymphocytes # (auto) 1.8 10 ^3/uL (0.4-5.4)
[2024-03-22 06:33] LABS: Eosinophils # (auto) 0.4 10 ^3/uL (0-0.8); Eosinophils % (auto) 5.7 % (0.0-7.0); Hematocrit 42.1 % (36.0-46.0); Lymphocytes % (auto) 28.6 % (10.0-50.0); Mean Corpuscular Hemoglobin 34.2 pg (28.0-32.0); Mean Corpuscular Hgb Conc. 34.2 g/dL (32.0-36.0); Mean Corpuscular Volume 99.9 fL (80.0-100.0); Monocytes # (auto) 0.9 10 ^3/uL (0-1.3); Monocytes % (auto) 14.3 % (0.0-12.0); Neutrophils # (auto) 3.2 10 ^3/uL (1.6-8.6); Neutrophils % (auto) 50.8 % (37.0-80.0); Nucleated Red Blood Cells % 0.1 %; Platelet Count (auto) 174 10^3/uL (140-450); Red Blood Cells 4.22 10^6/uL (4.0-5.20); Red Cell Distribution Width 14.7 % (11.8-14.3); White Blood Cell 6.3 10^3/uL (4.4-10.8)
[2024-03-22 06:48] LABS: Alanine Aminotransferase 42 U/L (7-40); Albumin 3.2 g/dL (3.2-4.8); Alkaline Phosphatase 68 U/L (46-116); Anion Gap 6 (5-15); Aspartate Aminotransferase 62 U/L (13-40); BUN/Creatinine Ratio 24.2 (10.0-20.0); Blood Urea Nitrogen 16 mg/dL (9-23); Calcium 9.3 mg/dL (8.7-10.4); Carbon Dioxide 26 mmol/L (20-30); Chloride 111 mmol/L (98-107); Glucose 78 mg/dL (74-106); Sodium 143 mmol/L (136-145)
[2024-03-22 06:49] LABS: Bilirubin, Total 0.4 mg/dL (0.2-1.0); Total Protein 4.9 g/dL (5.7-8.2)
[2024-03-22] MEDS: POTASSIUM EFFERVESENT TAB 25 MEQ PO ONE (09:25)
[2024-03-22] MEDS: ENOXAPARIN SOD 40 MG/0.4 ML SYRINGE SC SCH (09:48)
[2024-03-22] MEDS ORDERED: LIDOCAINE 1% INJ PF 5ML AMP ONE (12:01)
[2024-03-22] MEDS ORDERED: ONDANSETRON HCL 4 MG/2 ML VIAL ONE (12:01)
[2024-03-22] MEDS ORDERED: GLYCOPYRROLATE 0.2 MG/ML 1ML VIAL ONE (12:01)
[2024-03-22] MEDS ORDERED: KETOROLAC TROMETH 30 MG/ML 1ML VIAL ONE (12:01)
[2024-03-22] MEDS ORDERED: DexAMETHasone SOD PHOS 10MG/1ML VIAL INJ ONE (12:01)
[2024-03-22] MEDS ORDERED: PROPOFOL 10 MG/ML 20 ML IV ONE ×2 (12:01→13:21)
[2024-03-22] MEDS ORDERED: KETAMINE 50mg/ML 1ml syringe ONE (12:02)
[2024-03-22] MEDS ORDERED: fentaNYL CITRATE 100 MCG/2 ML VL ONE (12:02)
[2024-03-22] MEDS: BUPIVACAINE 0.25% INJ 50ML VIAL IJ ONE (13:14)
[2024-03-22] MEDS ORDERED: NALOXONE HCL 0.4 MG/ML VIAL IV PRN (13:45)
[2024-03-22] MEDS ORDERED: ONDANSETRON HCL 4 MG/2 ML VIAL IV PRN (13:45)
[2024-03-22] MEDS ORDERED: fentaNYL CITRATE 100 MCG/2 ML VL IV PRN (13:45)
[2024-03-22] MEDS ORDERED: FLUMAZENIL 0.1 MG/ML INJ 10ML MDV IV PRN (13:45)
[2024-03-22] MEDS ORDERED: HYDROmorphone HCL 2 MG/ML VL/or syr IV PRN (13:45)
[2024-03-22] MEDS ORDERED: ePHEDrine SULFATE 50 MG/ML AMP IV PRN (13:45)
[2024-03-22] MEDS ORDERED: hydrALAZINE HCL 20 MG/ML VL IV PRN (13:45)
[2024-03-22] MEDS: BUPIVACAINE 0.25% INJ 50ML VIAL ONE (18:31)
[2024-03-22] MEDS: GELATIN 1 SPONGE SIZE 100 TOP ONE (18:32)
[2024-03-22] MEDS: ceFAZolin 2 GM/D5W50ml 50 ML IV ONE (18:32)
[2024-03-22] MEDS: LIDOCAINE W/ EPINEPHRINE 1% 20ML VIAL ONE (18:32)
[2024-03-22] MEDS: LIDOCAINE 2% JELLY 11ml (GLYDO) ONE (18:32)
[2024-03-22] MEDS: POTASSIUM CHL 20 Meq TABLET PO ONE (18:35)
[2024-03-23] VITALS (13 sets, daily range): BP systolic 94–117; BP diastolic 56–78; PULSE 57–73; RESP 17–19; TEMP 97.8–98.3; O2SAT 90–97
[2024-03-23] MEDS: POTASSIUM CHL 20 Meq TABLET PO ONE ×2 (01:19→14:14)
[2024-03-23 06:02] LABS: Basophils # (auto) 0 10 ^3/uL (0-0.2); Basophils % (auto) 0.3 % (0.0-2.0); Eosinophils # (auto) 0 10 ^3/uL (0-0.8); Eosinophils % (auto) 0.5 % (0.0-7.0); Hematocrit 42.2 % (36.0-46.0); Hemoglobin 14.4 g/dL (12.2-16.2); Lymphocytes # (auto) 1.8 10 ^3/uL (0.4-5.4); Lymphocytes % (auto) 22.1 % (10.0-50.0); Mean Corpuscular Hemoglobin 33.7 pg (28.0-32.0); Mean Corpuscular Hgb Conc. 34.1 g/dL (32.0-36.0); Mean Corpuscular Volume 98.7 fL (80.0-100.0); Monocytes % (auto) 12.4 % (0.0-12.0); Neutrophils # (auto) 5.3 10 ^3/uL (1.6-8.6); Neutrophils % (auto) 64.7 % (37.0-80.0); Nucleated Red Blood Cells % 0.1 %; Platelet Count (auto) 196 10^3/uL (140-450); Red Blood Cells 4.27 10^6/uL (4.0-5.20); Red Cell Distribution Width 14.5 % (11.8-14.3); White Blood Cell 8.1 10^3/uL (4.4-10.8)
[2024-03-23 06:07] LABS: Calcium 9.8 mg/dL (8.7-10.4); Chloride 112 mmol/L (98-107); Potassium 3.1 mmol/L (3.5-5.1); Sodium 142 mmol/L (136-145)
[2024-03-23 06:12] LABS: BUN/Creatinine Ratio 14.7 (10.0-20.0); Blood Urea Nitrogen 11 mg/dL (9-23); Glucose 79 mg/dL (74-106); Magnesium 2.1 mg/dL (1.6-2.6)
[2024-03-23] MEDS: oxyCODONE HCL 5MG TAB PO PRN (06:14)
[2024-03-23 07:02] LABS: Anion Gap 5 (5-15); Carbon Dioxide 25 mmol/L (20-30)
[2024-03-23] MEDS: oxyCODONE HCL 5MG TAB PO ONE (18:14)
[2024-03-23] MEDS: oxyCODONE ER 10 MG TAB PO SCH (18:15)
[2024-03-24] VITALS (14 sets, daily range): BP systolic 102–123; BP diastolic 55–76; PULSE 56–97; RESP 16–19; TEMP 97.7–98.4; O2SAT 95–100
[2024-03-24] MEDS: oxyCODONE HCL 5MG TAB PO PRN (01:25)
[2024-03-24 07:01] LABS: Red Cell Distribution Width 14.5 % (11.8-14.3)
[2024-03-24 07:03] LABS: Hematocrit 43.6 % (36.0-46.0); Hemoglobin 14.7 g/dL (12.2-16.2); Mean Corpuscular Hemoglobin 33.9 pg (28.0-32.0); Mean Corpuscular Hgb Conc. 33.7 g/dL (32.0-36.0); Mean Corpuscular Volume 100.6 fL (80.0-100.0); Platelet Count (auto) 211 10^3/uL (140-450); Red Blood Cells 4.33 10^6/uL (4.0-5.20); White Blood Cell 10.5 10^3/uL (4.4-10.8)
[2024-03-24 07:06] LABS: Basophils % (manual) 0 (0.0-2.0); Blast Cells 0; Metamyelocytes % 0; Myelocytes % 0; Promyelocytes % 0; Reactive Lymphocytes 0
[2024-03-24 07:20] LABS: Alanine Aminotransferase 28 U/L (7-40); Albumin 3.3 g/dL (3.2-4.8); Alkaline Phosphatase 64 U/L (46-116); Anion Gap 2 (5-15); Aspartate Aminotransferase 29 U/L (13-40); BUN/Creatinine Ratio 17.1 (10.0-20.0); Bilirubin, Total 0.4 mg/dL (0.2-1.0); Blood Urea Nitrogen 12 mg/dL (9-23); Calcium 10.3 mg/dL (8.7-10.4); Carbon Dioxide 26 mmol/L (20-30); Chloride 114 mmol/L (98-107); Glucose 82 mg/dL (74-106); Magnesium 2.1 mg/dL (1.6-2.6); Potassium 3.9 mmol/L (3.5-5.1); Sodium 142 mmol/L (136-145); Total Protein 5.3 g/dL (5.7-8.2)
[2024-03-24 08:11] LABS: Band Neutrophils % (manual) 4; Eosinophils % (manual) 5 (0-7); Lymphocytes % (manual) 20 (10.0-50.0); Monocytes % (manual) 11 (0-12); Platelet Estimate Adequate
[2024-03-24] MEDS ORDERED: CEPH250C PO (15:25)
[2024-03-24] MEDS: OXYCODONE W/ ACETAMINOPHEN 5/325MG TABLET PO PRN (16:23)
[2024-03-25] VITALS (13 sets, daily range): BP systolic 98–131; BP diastolic 64–81; PULSE 68–83; RESP 16–21; TEMP 97.5–98.5; O2SAT 94–100
[2024-03-25] MEDS: oxyCODONE HCL 5MG TAB PO PRN (05:37)
[2024-03-25 07:01] LABS: Basophils # (auto) 0.1 10 ^3/uL (0-0.2); Basophils % (auto) 0.5 % (0.0-2.0); Eosinophils # (auto) 0.6 10 ^3/uL (0-0.8); Eosinophils % (auto) 4.8 % (0.0-7.0); Hematocrit 44.2 % (36.0-46.0); Hemoglobin 14.9 g/dL (12.2-16.2); Lymphocytes # (auto) 2.7 10 ^3/uL (0.4-5.4); Lymphocytes % (auto) 20.4 % (10.0-50.0); Mean Corpuscular Hemoglobin 33.7 pg (28.0-32.0); Mean Corpuscular Hgb Conc. 33.6 g/dL (32.0-36.0); Mean Corpuscular Volume 100.2 fL (80.0-100.0); Monocytes # (auto) 1.1 10 ^3/uL (0-1.3); Monocytes % (auto) 8.3 % (0.0-12.0); Neutrophils # (auto) 8.6 10 ^3/uL (1.6-8.6); Platelet Count (auto) 235 10^3/uL (140-450); Red Blood Cells 4.41 10^6/uL (4.0-5.20); Red Cell Distribution Width 14.6 % (11.8-14.3)
[2024-03-25 07:06] LABS: Chloride 113 mmol/L (98-107); Potassium 3.9 mmol/L (3.5-5.1); Sodium 141 mmol/L (136-145)
[2024-03-25 07:07] LABS: Anion Gap 5 (5-15); Calcium 10.1 mg/dL (8.7-10.4); Carbon Dioxide 23 mmol/L (20-30)
[2024-03-25 07:12] LABS: BUN/Creatinine Ratio 15.6 (10.0-20.0); Blood Urea Nitrogen 10 mg/dL (9-23); Glucose 70 mg/dL (74-106)
[2024-03-25] MEDS: LACTULOSE 20Gm/30ML SOLN PO SCH (09:10)
[2024-03-25] MEDS ORDERED: DOXY-286 PO (11:32)
[2024-03-26] VITALS (7 sets, daily range): BP systolic 90–106; BP diastolic 52–67; PULSE 64–89; RESP 16–20; TEMP 97.9–98.3; O2SAT 95–98
[2024-03-26] MEDS: HYDROcodone-ACET 5/325MG TAB PO PRN (01:31)
== END 2024-03-26 08:32 | disposition home health service (06) | DRG 383 ==
LOC: ER 12:51 → EDBD 12:51 → OVERFLOW 19:20 → WEST WING 23:40 → TELE-WESTW 03-20 18:57
PROVIDERS: ADMIT Internal Medicine; ATTEND Internal Medicine
PROC: 0HBJXZZ Excision of Left Upper Leg Skin, External Approach (ICD-10-PCS; principal; 2024-03-22 13:02)
DX: L03.116 Cellulitis of left lower limb (principal); N17.0 Acute kidney failure with tubular necrosis; G93.41 Metabolic encephalopathy; J15.69 Pneumonia due to other Gram-negative bacteria; I11.0 Hypertensive heart disease with heart failure; L89.222 Pressure ulcer of left hip, stage 2; J15.9 Unspecified bacterial pneumonia; I50.32 Chronic diastolic (congestive) heart failure; J44.0 Chronic obstructive pulmonary disease with (acute) lower respiratory infection; E87.6 Hypokalemia; Z20.822 Contact with and (suspected) exposure to COVID-19; E66.9 Obesity, unspecified; F32.A Depression, unspecified; R74.01 Elevation of levels of liver transaminase levels; E78.5 Hyperlipidemia, unspecified; G89.29 Other chronic pain; F17.210 Nicotine dependence, cigarettes, uncomplicated; F41.9 Anxiety disorder, unspecified; Z82.5 Family history of asthma and other chronic lower respiratory diseases; Z82.49 Family history of ischemic heart disease and other diseases of the circulatory system; Z81.8 Family history of other mental and behavioral disorders; Z80.49 Family history of malignant neoplasm of other genital organs; N39.0 Urinary tract infection, site not specified; Z68.34 Body mass index [BMI] 34.0-34.9, adult
CPT/HCPCS: 36415; 36600; 70450; 71045; 71250; 72125; 73560; 73700; 80048; 80053; 80061; 80074; 80202; 80307; 80320; 81001; 82533; 82550; 82805; 83036; 83605; 83735; 83880; 84100; 84132; 84133; 84443; 84484; 85007; 85025; 85027; 85379; 85610; 85652; 85730; 86141; 87040; 87081; 87086; 87426; 87804; 93005; 93306; 93886; 93926; 94640; 96365; 96366; 97110; 97116; 97163; 97530; 99291; G0378; J1100; J1885; J2001; J2405; J2543; J2704; J3480; J3490

== ENCOUNTER 2024-05-24 14:25 | Inpatient (IN) | payer MEDICAID ==
[~2024-05-24] VITALS: Ht 172.7 cm; Wt 88.6 kg
[~2024-05-24 14:25] MED LIST changes: +ALBU0.084 NEB; +BUDE1AER6 IN; +CARV12.544 PO; +CEPH250C PO; +CHOL500033 PO; +DICL1GEL59 EX; +DICY20TA PO; +DOXY-286 PO; +FENO54TA4 PO; +FOLI-119 PO; +FURO40TA4 PO; +GABA-1251 PO; -LEVO750T40 PO; +LIDO1PAD55 EX; +MAGN400T40 PO; +OMEP-448 PO; -PRED20TA2 PO; +PREG150C63 PO; +QUET400T13 PO; +TAMS0.4C39 PO; +ZOLP10TA6 PO
[2024-05-24] MEDS: HYDROcodone-ACET 10/325MG TAB PO ONE (15:15)
[2024-05-24] MEDS: ONDANSETRON ODT 4 MG TAB PO ONE (15:15)
--- NOTE | 2024-05-24 15:22 | ED.PDOC ---
History of Present Illness HPI Comments 59Y F with PMHx HTN, HLD, CHF, COPD presents to ED for chief complaint wound check. Pt was bitten by recluse spider in 2023 and was d/c from [facility] on 03/26/2024 after being septic. Pt states she had a wound vac that became infected while here. Pt came back to ED due to experiencing same septic symptoms as before with lethargy, urinary incontinence, and blood clots in the urine. The wound is on the left buttock. Pt states she was going to have surgery but then it did not happen for unknown reason. Pt. is currently on ABX for a UTI. Patient was hypotensive and satting at 91% at arrival. Chief Complaint: Wound Check Time Seen by MD: 15:10 Primary Care Provider: alejandro Reviewed Notes: Nurses Notes, Medications, Allergies Allergies: Coded Allergies: Codeine (Unverified Allergy, Unknown, 06/21/23) Influenza Vaccines (Unverified Allergy, Unknown, 06/21/23) Pneumococcal Vaccines (Unverified Allergy, Unknown, 06/21/23) Home Meds Active Scripts Doxycycline Hyclate (DOXYCYCLINE HYCLATE) 100 Mg Tab, 1 TAB PO BID for 5 Days, #10 TAB 0 Refills Prov:CARINE JENKINS 03/25/24 Cephalexin (KEFLEX CAPSULE) 250 Mg Cp, 2 CAP PO BID for 7 Days, #28 CAP Prov:JOHAN BARRIENTOS DO 03/24/24 Umeclidinium-Vilanterol (Anoro Ellipta 62.5-25 Mcg/INH) 1 Aer Aer, 1 AER IN DAILY for 30 Days, #30 AER Prov:DELANEY PHIPPS MD 06/23/23 Quetiapine Fumerate (Seroquel) 50 Mg Tab, 1 TAB PO QPM, #30 TAB Prov:MELISSA MCNALLY MD 07/11/22 Spironolactone (Aldactone) 25 Mg Tab, 25 MG PO BIDD, #60 TAB Prov:MELISSA MCNALLY MD 07/11/22 Magnesium Oxide (Mag-Ox) 400 Mg Tb, 400 MG PO BID, #14 TAB Prov:MELISSA MCNALLY MD 07/11/22 Ipratropium [place] (Ipratropium [place]) 0.02 % [place], 0.5 MG NEB Q6HPRN PRN, #30 ML Prov:MELISSA MCNALLY MD 07/11/22 Gemfibrozil (Gemfibrozil) 600 Mg Tab, 600 MG PO BID, #60 TAB Prov:MELISSA MCNALLY MD 07/11/22 Gabapentin (Gabapentin) 100 Mg Cap, 100 MG PO TID, #30 CAP Prov:MELISSA MCNALLY MD 07/11/22 Duloxetine Hydrochloride (Duloxetine Hydrochloride) 30 Mg Cap, 60 MG PO DAILY, #60 CAP Prov:MELISSA MCNLALY MD 07/11/22 Carvedilol (COREG) 12.5 Mg Tab, 6.25 MG PO BID, #60 TAB Prov:MELISSA MCNALLY MD 07/11/22 Albuterol Sulfate (Ventolin) 2.5 Mg/0.5 Ml Nb, 2.5 MG NEB Q6HPRN PRN, #30 INH Prov:MELISSA MCNALLY MD 07/11/22 Reported Medications Gabapentin (Gabapentin) 400 Mg Cap, 1 CAP PO QID 03/20/24 Quetiapine Fumerate (QUETIAPINE FUMARATE) 400 Mg Tab, 1 TAB PO HS 03/20/24 Pregabalin (Pregabalin) 150 Mg Cap, 1 CAP PO TID 03/20/24 Zolpidem Tartrate (Zolpidem Tartrate) 10 Mg Tab, 1 TAB PO QHSP PRN for FOR INSOMNIA 03/20/24 Furosemide (Furosemide) 40 Mg Tab, 1 TAB PO BID 03/20/24 Hydrocodone-Acetaminophen (Hydrocodone/Acetaminophen 10-325 mg) 1 Tab Tab, 1 TAB PO 07/08/22 Temazepam (Temazepam) 30 Mg Cap, 1 CAP PO HS, #30 CAP 1 Refill 10/18/17 Information Source: Patient Mode of Arrival: Ambulatory Severity: Moderate Timing: Days Duration: Since onset Past Medical History PAST MEDICAL HISTORY: Angina, Anxiety, CHF, COPD, Depression, High Lipids, HTN Surgical History: Cholecystectomy, , Tonsillectomy Surgical History (Other): Septic wound that required debridement RUG INSPECTOR HELPER History: No Pertinent RUG INSPECTOR HELPER History Family History Family History: Family hx of Cancer, Family hx of heart pedro pablo, Family hx of HTN Family History (Other): CHF Social History Smoker: Cigarettes Alcohol: Denies ETOH Use Drugs: Denies Drug Use Lives In: Home Constitutional: reports: malaise, weakness; denies: chills, diaphoresis, fatigue, fever, sweats, others EENTM: denies: blurred vision, double vision, ear bleeding, ear discharge, ear drainage, ear pain, ear ringing, eye pain, eye redness, hearing loss, mouth pain, mouth swelling, nasal discharge, nose bleeding, nose congestion, nose pain, photophobia, tearing, throat pain, throat swelling, voice changes, others Respiratory: denies: cough, hemoptysis, orthopnea, SOB at rest, shortness of breath, SOB with excertion, stridor, wheezing, others Cardiovascular: denies: chest pain, dizzy spells, diaphoresis, Dyspnea on exertion, edema, irregular heart beat, left arm pain, lightheadedness, palpitations, PND, syncope, others Gastrointestinal: denies: abdomen distended, abdominal pain, blood streaked bowels, constipated, diarrhea, dysphagia, difficulty swallowing, hematemesis, melena, nausea, poor appetite, poor fluid intake, rectal bleeding, rectal pain, vomiting, others Genitourinary: reports: hematuria, incontinence; denies: abnormal vagina bleeding, burning, dyspareunia, dysuria, flank pain, frequency, pain, , vagina discharge, urgency, others Neurological: denies: dizziness, fainting, headache, left sided numbness, left sided weakness, numbness, paresthesia, pre-existing deficit, right sided numbness, right sided weakness, seizure, speech problems, tingling, tremors, weakness, others Musculoskeletal: denies: back pain, gout, joint pain, joint swelling, muscle pain, muscle stiffness, neck pain, others Integumetry: reports: wounds (to L buttock); denies: bruises, change in color, change in hair/nails, dryness, laceration, lesions, lumps, rash, others Allergic/Immunocompromised: denies: Difficulty Healing, Frequent Infections, Hives, Itching, others Hematologic/Lymphatic: denies: anemia, blood clots, easy bleeding, easy bruising, swollen glands, others Endocrine: denies: excessive hunger, excessive sweating, excessive thirst, excessive urination, flushing, intolerance to cold, intolerance to heat, unexplained weight gain, unexplained weight loss, others Psychiatric: denies: anxiety, bipolar disorder, depression, hopeless, panic disorder, schizophrenia, sleepless, suicidal, others All Other Systems: Reviewed and Negative Physical Exam General Appearance: Moderate Distress (due to pain and general ill feeling), Normal HEENT: Normal ENT Inspection, Pharynx Normal, TMs Normal Neck: Full Range of Motion, Non-Tender, Normal, Normal Inspection Respiratory: Chest Non-Tender, Lungs Clear, No Accessory Muscle Use, No Respiratory Distress, Normal Breath Sounds Cardiovascular: No Edema, No JVD, No Murmur, No Gallop, Normal Peripheral Pulses, Regular Rate/Rhythm Breast Exam: Deferred Gastrointestinal: No Organomegaly, Non Tender, No Pulsatile Mass, Normal Bowel Sounds, Soft Genitalia: Deferred Pelvic: Deferred Rectal: Deferred Extremities: No calf tenderness, Normal capillary refill, Normal inspection, Normal range of motion, Non-tender, No pedal edema Musculoskeletal : Apperance: Normal Neurologic: Alert, knife finisher II-XII nml as Tested, No Motor Deficits, Normal Affect, Normal Mood, No Sensory Deficits Cerebellar Function: Normal Reflexes: Normal Skin: Dry, Warm, Wounds (Pt had a large and deep wound to the L buttock. local erythema with TTP throughout.) Lymphatic: No Adenopathy Was a procedure done? Was a procedure done?: No Differential Dx Considerations may include: Sepsis, cellulitis, skin infection, dehydration, hypotension X-Ray, Labs, Meds, VS Vital Signs Date Time Temp Pulse Resp B/P (MAP) Pulse Ox O2 Delivery O2 Flow Rate FiO2 05/24/24 17:57 70 18 97/54 (68) 94 05/24/24 15:46 98.1 72 18 100/58 (72) 94 98.1 05/24/24 15:46 72 18 95 Nasal Cannula* 2 28 05/24/24 14:58 98.2 85 17 89/59 (69) 91 Lab Test 05/24/24 17:00 05/24/24 15:37 Range/Units Urine Color Dark-yellow Yellow Urine Clarity Turbid H Clear Urine pH 5.5 5.0-9.0 Urine Specific [place] 1.009 1.001-1.035 Urine Protein Trace H Negative Urine Ketones Negative Negative Urine Blood 3+ H Negative /uL Urine Nitrite 1+ H Negative Urine Bilirubin Negative Negative Urine Urobilinogen Normal Negative mg/dL Urine Leukocyte Esterase 3+ Negative /uL Urine RBC 487 0 - 4 /hpf Urine WBC 627 0 - 5 /hpf Urine Squamous Epithelial Cells Few <5 /hpf Urine Bacteria Few H None Seen /hpf Urine Hyaline Casts Mod 0 - 2 /lpf Urine Glucose Normal Normal mg/dL White Blood Count 14.0 H 4.4-10.8 10^3/uL Red Blood Count 4.44 4.0-5.20 10^6/uL Hemoglobin 15.0 12.2-16.2 g/dL Hematocrit 43.8 36.0-46.0 % Mean Corpuscular Volume 98.5 80.0-100.0 fL Mean Corpuscular Hemoglobin 33.7 H 28.0-32.0 pg Mean Corpuscular Hemoglobin Concent 34.3 32.0-36.0 g/dL Red Cell Distribution Width 15.3 H 11.8-14.3 % Platelet Count 263 140-450 10^3/uL Mean Platelet Volume 8.6 6.9-10.8 fL Neutrophils (%) (Auto) 75.8 37.0-80.0 % Lymphocytes (%) (Auto) 10.8 10.0-50.0 % Monocytes (%) (Auto) 8.7 0.0-12.0 % Eosinophils (%) (Auto) 3.9 0.0-7.0 % Basophils (%) (Auto) 0.8 0.0-2.0 % Neutrophils # (Auto) 10.6 H 1.6-8.6 10 ^3/uL Lymphocytes # (Auto) 1.5 0.4-5.4 10 ^3/uL Monocytes # (Auto) 1.2 0-1.3 10 ^3/uL Eosinophils # (Auto) 0.5 0-0.8 10 ^3/uL Basophils # (Auto) 0.1 0-0.2 10 ^3/uL Nucleated Red Blood Cells 0.0 % Sodium Level 140 136-145 mmol/L Potassium Level 4.0 3.5-5.1 mmol/L Chloride Level 109 H 98-107 mmol/L Carbon Dioxide Level 24 20-31 mmol/L Anion Gap 7 5-15 Blood Urea Nitrogen 29 H 9-23 mg/dL Creatinine 1.51 H 0.550-1.02 mg/dL Glomerular Filtration Rate Calc 39 >90 mL/min BUN/Creatinine Ratio 19.2 10.0-20.0 Serum Glucose 126 H 74-106 mg/dL Lactic Acid Level 1.2 0.4-2.0 mmol/L Calcium Level 9.7 8.7-10.4 mg/dL Total Bilirubin 0.2 0.2-1.0 mg/dL Aspartate Amino Transferase (AST) 21 13-40 U/L Alanine Aminotransferase (ALT) 16 7-40 U/L Alkaline Phosphatase 89 46-116 U/L Troponin I High Sensitivity 3 L </=34 ng/L B-Type Natriuretic Peptide 120.40 0-100 pg/mL Total Protein 6.4 5.7-8.2 g/dL Albumin 4.2 3.2-4.8 g/dL Current Medications Medications (Trade) Dose Ordered Sig/Sumanth Route Start Time Stop Time Status Last Admin Acetaminophen/ Hydrocodone Bitart ([place] 10/325MG Tab) 1 tab ONCE ONCE PO 05/24/24 15:15 05/24/24 15:17 DC 05/24/24 15:15 Ondansetron HCl (Zofran Po) 4 mg ONCE ONCE PO 05/24/24 15:15 05/24/24 15:17 DC 05/24/24 15:15 Ceftriaxone Sodium 50 ml @ 100 mls/hr ONCE ONCE IV 05/24/24 17:00 05/24/24 17:29 DC 05/24/24 17:07 X-Ray, Labs, Meds, VS Comment All studies performed at the ED were evaluated by me personally. Serum Labs revealed an elevated WBC as well as an FLORECITA. Urine was remarkable for a severe WBC content indicative of urosepsis. EKG revealed sinus rythm with LINDA, rate of 70 and IL interval of 167 and QT interval of 390. Pt. will be admitted for IV ABX as well as Blood pressure management. Cultures pending. Cardiac and Nephro consult needed. Time of 1ST Reevaluation: 18:29 Reevaluation 1ST: Improved Consultation: PCP Patient Education/Counseling: Diagnosis, Treatment Family Education/Counseling: Diagnosis, Treatment Departure 1 Departure Time of Disposition: 18:31 Impression: Primary Impression: UTI (urinary tract infection) Additional Impressions: Acute renal injury Hypotension Disposition: ADMITTED INPATIENT Condition: Stable Discharged With: Self, Spouse Critical Care Note Critical Care Time?: No Stability Stability form required: No Heart Score Heart Score: Heart Score Response (Comments) Value History Slightly Suspicious 0 EKG Normal 0 Age 45-64 1 Risk Factors 1 or 2 risk factors 1 Troponin Normal limit 0 Total 2 I personally scribed for DALIA ZHANG PAC ([email or web address]) on 05/24/24 at 15:22. Electronically submitted by Aleshia Roca ([email or web address]). DALIA ZHANG PAC May 24, 2024 15:22
[2024-05-24 15:46] VITALS: PULSE 72; RESP 18; O2SAT 95
[2024-05-24 15:50] LABS: Basophils # (auto) 0.1 10 ^3/uL (0-0.2); Basophils % (auto) 0.8 % (0.0-2.0); Eosinophils # (auto) 0.5 10 ^3/uL (0-0.8); Eosinophils % (auto) 3.9 % (0.0-7.0); Hematocrit 43.8 % (36.0-46.0); Lymphocytes # (auto) 1.5 10 ^3/uL (0.4-5.4); Lymphocytes % (auto) 10.8 % (10.0-50.0); Mean Corpuscular Hemoglobin 33.7 pg (28.0-32.0); Mean Corpuscular Hgb Conc. 34.3 g/dL (32.0-36.0); Mean Corpuscular Volume 98.5 fL (80.0-100.0); Monocytes # (auto) 1.2 10 ^3/uL (0-1.3); Monocytes % (auto) 8.7 % (0.0-12.0); Neutrophils # (auto) 10.6 10 ^3/uL (1.6-8.6); Neutrophils % (auto) 75.8 % (37.0-80.0); Platelet Count (auto) 263 10^3/uL (140-450); Red Blood Cells 4.44 10^6/uL (4.0-5.20); Red Cell Distribution Width 15.3 % (11.8-14.3)
[2024-05-24 16:10] LABS: Alanine Aminotransferase 16 U/L (7-40); Albumin 4.2 g/dL (3.2-4.8); Alkaline Phosphatase 89 U/L (46-116); Anion Gap 7 (5-15); Aspartate Aminotransferase 21 U/L (13-40); BUN/Creatinine Ratio 19.2 (10.0-20.0); Blood Urea Nitrogen 29 mg/dL (9-23); Calcium 9.7 mg/dL (8.7-10.4); Carbon Dioxide 24 mmol/L (20-31); Chloride 109 mmol/L (98-107); Glucose 126 mg/dL (74-106); Sodium 140 mmol/L (136-145)
[2024-05-24 16:11] LABS: Bilirubin, Total 0.2 mg/dL (0.2-1.0); Total Protein 6.4 g/dL (5.7-8.2)
[2024-05-24] MEDS: cefTRIAXone 1GM/50ML D5W 50 ML IV ONE (17:07)
[2024-05-24 18:04] LABS: Urine Bacteria FEW /hpf (None Seen); Urine Blood 3+ /uL (Negative); Urine Clarity Turbid (Clear); Urine Color Dark-Yellow (Yellow); Urine Hyaline Cast MOD /lpf (0 - 2); Urine Protein, UAD TRACE (Negative); Urine Specific Gravity 1.009 (1.001-1.035); Urine Urobilinogen Normal (Negative); Urine WBC 627 /hpf (0 - 5); Urine pH 5.5 (5.0-9.0)
--- NOTE | 2024-05-24 18:04 | ECG ---
[facility] Test Date: 2024-05-24 Test Time: 17:38:21 Pat Name: DONA WONG Department: ED Room: 0262 Gender: F Sprayer Automatic Spray Machine: ISAMAR : 1965 Requested By: DALIA ZHANG Order Number: [id number] Reading MD: Alonzo Herrera Measurements Intervals [place] Rate: 70 P: 56 NH: 167 QRS: 40 QRSD: 112 T: 14 QT: 390 QTc: 421 Interpretive Statements Sinus rhythm Consider left atrial enlargement Anteroseptal infarct, age indeterminate Electronically Signed On 05-30-2024 10:09:49 PST by Alonzo Herrera Please click the below link to view image of tracing.
[2024-05-24] MEDS: SODIUM CHLORIDE 0.9% 2,000 ML IV ONE (18:29)
[2024-05-24 19:32] VITALS: PULSE 82; RESP 12; O2SAT 94
[2024-05-24] MEDS ORDERED: SODIUM CHLORIDE 0.9% 1,000 ML IV SCH (20:45)
[2024-05-24] MEDS ORDERED: MORPHINE SULFATE INJ 2 MG/ml SYRG IV PRN (20:45)
[2024-05-24] MEDS ORDERED: NITROGLYCERIN 0.4 MG SL TAB SL PRN (20:45)
[2024-05-24] MEDS ORDERED: ACETAMINOPHEN 325 MG TAB PO PRN (20:45)
--- NOTE | 2024-05-24 21:12 | DVH ---
CHEST RADIOGRAPH Indication:sob Technique: Single frontal view of the chest was obtained Comparison: XY CHEST PORTABLE on DOS: 03/19/24, XY CHEST PORTABLE on DOS: 06/21/23, XY CHEST XRAY 1 EW on DOS: 06/20/23 FINDINGS: Lines and Tubes: None Lungs: No focal consolidation. Pleura: No effusion. No pneumothorax. Cardiomediastinal contours: Unremarkable Bones: No acute osseous abnormality. IMPRESSION: No acute cardiopulmonary disease.
[2024-05-24 21:28] LABS: Basophils # (auto) 0 10 ^3/uL (0-0.2); Basophils % (auto) 0.4 % (0.0-2.0); Eosinophils # (auto) 0.6 10 ^3/uL (0-0.8); Eosinophils % (auto) 5.6 % (0.0-7.0); Hematocrit 39.7 % (36.0-46.0); Hemoglobin 13.7 g/dL (12.2-16.2); Lymphocytes # (auto) 1.8 10 ^3/uL (0.4-5.4); Lymphocytes % (auto) 16.8 % (10.0-50.0); Mean Corpuscular Hemoglobin 34.2 pg (28.0-32.0); Mean Corpuscular Hgb Conc. 34.5 g/dL (32.0-36.0); Monocytes % (auto) 9.2 % (0.0-12.0); Neutrophils # (auto) 7.2 10 ^3/uL (1.6-8.6); Platelet Count (auto) 214 10^3/uL (140-450); Red Blood Cells 4.01 10^6/uL (4.0-5.20); Red Cell Distribution Width 15.2 % (11.8-14.3); White Blood Cell 10.6 10^3/uL (4.4-10.8)
[2024-05-24] MEDS: SODIUM CHLORIDE 0.9% 500 ML IV ONE (21:29)
[2024-05-24 21:55] LABS: Alanine Aminotransferase 13 U/L (7-40); Albumin 3.7 g/dL (3.2-4.8); Alkaline Phosphatase 90 U/L (46-116); Anion Gap 6 (5-15); Aspartate Aminotransferase 15 U/L (13-40); BUN/Creatinine Ratio 14.2 (10.0-20.0); Blood Urea Nitrogen 21 mg/dL (9-23); Calcium 9.1 mg/dL (8.7-10.4); Carbon Dioxide 22 mmol/L (20-31); Chloride 114 mmol/L (98-107); Glucose 116 mg/dL (74-106); Potassium 3.5 mmol/L (3.5-5.1); Sodium 142 mmol/L (136-145)
[2024-05-24 21:56] LABS: Bilirubin, Total < 0.2 mg/dL (0.2-1.0); Total Protein 5.9 g/dL (5.7-8.2)
[2024-05-24] MEDS: cefEPIME 1gm INJ VIAL IM ONE (22:30)
[2024-05-24] MEDS ORDERED: VANCOMYCIN PER PHARMACY 0 MG IV SCH (22:30)
[2024-05-24] MEDS ORDERED: IPRATROPIUM BROM 0.5 MG/2.5ML INH SOL NEB PRN (22:45)
[2024-05-24] MEDS ORDERED: ALBUTEROL SULF 2.5 MG/0.5ML(0.5%) NEB SOLN NEB PRN (22:45)
--- NOTE | 2024-05-24 22:53 | DVHHPRES ---
History of Present Illness Resident Creating Document: LAUREANO GAN RESIDENT History of Present Illness DONA WONG is 59 years old female with a PMH of HTN, HLD, CHF, COPD, depression, CAD presented to the ED with the chief complaints of chills, dysuria, nausea, vomiting for past 1 week. Patient reported she has been having burning pain while micturition, suprapubic abdominal pain for past 1 week, recently associated with nausea, vomiting which prompted her to come ED. Patient also had chronic nonhealing wound associated with cellulitis, eschar on the left buttock due to spider bite 4 months back, she has been taking antibiotics and wound care but it is not healing, patient admitted in this facility with a sepsis of wound infection, debrided by Dr. Bass yet wound is not healing, pain and swelling has been increasing. On my assessment patient denies chest pain, palpitations, dizziness, diarrhea, and other associated symptoms. Past Medical History HTN, HLD, CHF, COPD, depression, CAD Past Surgical History Cholecystectomy, , tonsillectomy, debrided left buttock wound eschar Family History Colon cancer in mother, prostate cancer in father Past Social History Lives with a son. Active smoker, 1.5 pack per day 50 years, denies alcohol and other drug abuse Review of Systems Constitutional: Yes: Chills Eyes: No: Pain, Vision change, Conjunctivae inflammation, Eyelid inflammation, Other, Redness ENT: No: Ear pain, Ear discharge, Nose pain, Nose discharge, Nose congestion, Mouth pain, Mouth swelling, Throat pain, Throat swelling, Other Respiratory: Shortness of breath Cardiovascular: No: Chest Pain, Palpitations, Orthopnea, Paroxysmal Noc. Dysp puja, Edema, Lt Headedness, Other Gastrointestinal: Constipation Genitourinary: Dysuria, Other (Suprapubic abdominal pain) Musculoskeletal: No: other, neck pain, shoulder pain, arm pain, back pain, hand pain, leg pain, foot pain Skin: Other (Left buttock wound) Neurological: No: Weakness, Numbness, Incoordination, Change in speech, Confusion, Seizures, Other Allergies: Coded Allergies: Codeine (Unverified Allergy, Unknown, 06/21/23) Influenza Vaccines (Unverified Allergy, Unknown, 06/21/23) Pneumococcal Vaccines (Unverified Allergy, Unknown, 06/21/23) Medications Current Medications Medications Dose Ordered Sig/Sumanth Route Start Time Stop Time Status Last Admin Dose Admin Sodium Chloride 10 ml Q8HR IV 05/24/24 22:00 Sodium Chloride 1,000 ml @ 60 mls/hr [id number] IV 05/24/24 20:45 Acetaminophen 325 mg Q4HP PRN PO 05/24/24 20:45 Ondansetron HCl 4 mg Q4HP PRN IV 05/24/24 20:45 Morphine Sulfate 2 mg Q4HPRN PRN IV 05/24/24 20:45 Enoxaparin Sodium 40 mg DAILY SC 05/24/24 20:45 Nitroglycerin 0.4 mg Q5MINP PRN SL 05/24/24 20:45 Morphine Sulfate 2 mg Q30M PRN IV 05/24/24 20:45 Sodium Chloride 1,000 ml @ 75 mls/hr [id number] IV 05/24/24 21:15 Vancomycin HCl 0 ml @ 0 mls/hr UD IV 05/24/24 22:30 UNV Docusate Sodium 100 mg BIDPRN PRN PO 05/24/24 22:30 Exam Vital Signs Vital Signs Date Time Temp Pulse Resp B/P (MAP) Pulse Ox O2 Delivery O2 Flow Rate FiO2 05/24/24 21:00 74 11 83/16 (38) 94 05/24/24 19:32 Nasal Cannula* 2 28 05/24/24 19:32 98.3 98.3 Exam Pt is lying on bed General Appearance: Alert, Oriented X3, Cooperative, mild distress HEENT: Atraumatic, Mucous membranes moist/pink Respiratory: Clear to auscultation, Normal air movement, No added sounds Cardiovascular: Regular rate, Normal S1, Normal S2, No murmurs Abdominal: Active bowel sounds, Soft, no distention,Suprapubic tenderness present Extremities: No edema, Normal pulses, No tendernes Skin: Left buttock tenderness, wound with eschar, redness, swollen, tender, warmth Neuro: Normal speech, sensorimotor deficits none Psych/Mental Status: Mental status NL, Mood NL Nurse was there as sharperone during examination Labs/Xrays Labs Test 05/24/24 21:21 05/24/24 17:00 05/24/24 15:37 Range/Units White Blood Count 10.6 4.4-10.8 10^3/uL Red Blood Count 4.01 4.0-5.20 10^6/uL Hemoglobin 13.7 12.2-16.2 g/dL Hematocrit 39.7 36.0-46.0 % Mean Corpuscular Volume 99.0 80.0-100.0 fL Mean Corpuscular Hemoglobin 34.2 H 28.0-32.0 pg Mean Corpuscular Hemoglobin Concent 34.5 32.0-36.0 g/dL Red Cell Distribution Width 15.2 H 11.8-14.3 % Platelet Count 214 140-450 10^3/uL Mean Platelet Volume 8.2 6.9-10.8 fL Neutrophils (%) (Auto) 68.0 37.0-80.0 % Lymphocytes (%) (Auto) 16.8 10.0-50.0 % Monocytes (%) (Auto) 9.2 0.0-12.0 % Eosinophils (%) (Auto) 5.6 0.0-7.0 % Basophils (%) (Auto) 0.4 0.0-2.0 % Neutrophils # (Auto) 7.2 1.6-8.6 10 ^3/uL Lymphocytes # (Auto) 1.8 0.4-5.4 10 ^3/uL Monocytes # (Auto) 1.0 0-1.3 10 ^3/uL Eosinophils # (Auto) 0.6 0-0.8 10 ^3/uL Basophils # (Auto) 0 0-0.2 10 ^3/uL Nucleated Red Blood Cells 0.0 % Sodium Level 142 136-145 mmol/L Potassium Level 3.5 3.5-5.1 mmol/L Chloride Level 114 H 98-107 mmol/L Carbon Dioxide Level 22 20-31 mmol/L Anion Gap 6 5-15 Blood Urea Nitrogen 21 9-23 mg/dL Creatinine 1.48 H 0.550-1.02 mg/dL Glomerular Filtration Rate Calc 40 >90 mL/min BUN/Creatinine Ratio 14.2 10.0-20.0 Serum Glucose 116 H 74-106 mg/dL Calcium Level 9.1 8.7-10.4 mg/dL Total Bilirubin < 0.2 L 0.2-1.0 mg/dL Aspartate Amino Transferase (AST) 15 13-40 U/L Alanine Aminotransferase (ALT) 13 7-40 U/L Alkaline Phosphatase 90 46-116 U/L Total Protein 5.9 5.7-8.2 g/dL Albumin 3.7 3.2-4.8 g/dL Urine Color Dark-yellow Yellow Urine Clarity Turbid H Clear Urine pH 5.5 5.0-9.0 Urine Specific [place] 1.009 1.001-1.035 Urine Protein Trace H Negative Urine Ketones Negative Negative Urine Blood 3+ H Negative /uL Urine Nitrite 1+ H Negative Urine Bilirubin Negative Negative Urine Urobilinogen Normal Negative mg/dL Urine Leukocyte Esterase 3+ Negative /uL Urine RBC 487 0 - 4 /hpf Urine WBC 627 0 - 5 /hpf Urine Squamous Epithelial Cells Few <5 /hpf Urine Bacteria Few H None Seen /hpf Urine Hyaline Casts Mod 0 - 2 /lpf Urine Glucose Normal Normal mg/dL Lactic Acid Level 1.2 0.4-2.0 mmol/L Troponin I High Sensitivity 3 L </=34 ng/L B-Type Natriuretic Peptide 120.40 0-100 pg/mL Assessment/Plan Assessment/Plan # ? Sepsis with impending shock likely due to UTI vs left buttock wound ? cellulitis -giving IVF -ordered blood cultures, urine cultures, wound cultures -currently on cefepime and vancomycin -monitor lab and blood pressure continuously # Acute complicated UTI -evident on urinalysis -ordered urine culture -given 1 dose of Rocephin -currently giving cefepime and vancomycin # ? acute on chronic hypoxic respiratory failure -continuously monitor saturation -currently on 2 L O2 NC # chronic nonhealing left buttock wound cellulitis -currently giving cefepime and vancomycin -consulted surgeon for further evaluation -ordered wound culture and wound consult # CAREN likely vasomotor nephropathy due to sepsis -currently giving IVF -monitor lab # constipation -currently giving Colace # depression without suicidal or homicidal ideations -continue home meds Lovenox for now No GI PPX NPO after midnight Reconciled home meds Goals of care discussed with the patient for more than 27 minutes: Full code status Case management discussed with Dr. Coronel, patient and nurse Plan discussed with: Patient, Other (rn) My Orders Orders - LAUREANO GAN RESIDENT Procedure Category Date Status Time Admit ADMIT 05/24/24 Transmitted 20:36 Allergies MARCI 05/24/24 In Process 20:36 Code Status CODE 05/24/24 Transmitted 20:36 Sodium Chloride Lock PHA 05/24/24 In Process (Saline Lock Ns) 22:00 Sodium Chloride 0.9% PHA 05/24/24 In Process 20:45 Acetaminophen Tablet PHA 05/24/24 In Process (Tylenol Tablet) 20:45 Ondansetron Hcl PHA 05/24/24 In Process (Zofran) 20:45 Complete Blood Count LAB 05/25/24 Verified 04:00 Comprehensive LAB 05/25/24 Verified Metabolic Panel 04:00 Npo (Nothing By DIET 05/25/24 Transmitted Mouth) Diet Breakfast Morphine Sulfate PHA 05/24/24 In Process Injection 20:45 Enoxaparin Sodium PHA 05/24/24 In Process (Lovenox) 20:45 Nitroglycerin PHA 05/24/24 In Process Sublingual (Ntrostat 20:45 Morphine Sulfate PHA 05/24/24 In Process Injection 20:45 Oxygen By Nasal RT 05/24/24 Transmitted Cannula 20:36 Stat Ekg For Chest MARCI 05/24/24 In Process Pain 20:36 Notify Of Changes MARCI 05/24/24 In Process From Base 20:36 Communications Advisor For MARCI 05/24/24 In Process 24 Hours 20:36 Emergency Dysrhythmia MARCI 05/24/24 In Process Protocol 20:36 Rhythm Strips Once [facility] 05/24/24 In Process Every Shift 20:36 Chest Xray 1 View XY 05/24/24 Resulted 20:36 Electrocardigram EKG 05/24/24 Logged 20:36 Sodium Chloride 0.9% PHA 05/24/24 In Process 21:15 * Surgical Consult CONS 05/24/24 Transmitted * Wound Consult CONS 05/24/24 Transmitted Wound Culture W/ Gs CHRISTINE 05/24/24 Logged 22:25 Vancomycin Per PHA 05/24/24 Logged Pharmacy 22:30 PTPTT LAB 05/25/24 Verified 04:00 Hemoglobin A1c LAB 05/24/24 Logged 22:25 Drug Screen LAB 05/24/24 Logged 22:25 Vitamin D, 25-Hydroxy LAB 05/24/24 Logged 22:25 Vitamin B12 LAB 05/24/24 Logged 22:25 Thyroid Stimulating LAB 05/24/24 Logged Hormone 22:25 Docusate Sodium PHA 05/24/24 In Process Capsule (Colace 22:30 Albuterol Medneb PHA 05/24/24 Transmitted (Ventolin Medneb) 22:45 Duloxetine Hcl PHA 05/25/24 Transmitted Capsule (Cymbalta 10:00 Furosemide Tablet PHA 05/25/24 Transmitted (Lasix Tablet) 10:00 Gabapentin Capsule PHA 05/25/24 Transmitted (Neurontin Capsule) 06:00 Ipratropium Medneb PHA 05/24/24 Transmitted (Atrovent Medneb) 22:45 Spironolactone PHA 05/25/24 Transmitted (Aldactone) 06:00 (Nf) Magnesium Oxide PHA 05/25/24 Transmitted (Mag-Ox) 10:00 (Nf) Quetiapine PHA 05/25/24 Transmitted Fumerate (Quetiapine 22:00 (Nf) Temazepam PHA 05/25/24 Transmitted 22:00 (Nf) Zolpidem Tartrate PHA 05/24/24 Transmitted 22:45 Date of Service: May 24, 2024 Billing Provider: SHANNON CORONEL MD Common Visit Codes: 12947-[id number] INP/OBS CARE (HIGH) Secondary Visit Codes: [id number] CARE PLAN 30 MINUTES LAUREANO GAN RESIDENT May 24, 2024 22:53 SHANNON CORONEL MD May 25, 2024 12:53
[2024-05-24 22:58] VITALS: BP 83/49; PULSE 70; RESP 18; O2SAT 94
[2024-05-24] MEDS: VANCOMYCIN 1GM/200ML PREMIX IV ONE (23:00)
[2024-05-24] MEDS ORDERED: ZOLPIDEM TARTRATE 5 MG TAB PO PRN (23:00)
[2024-05-24] MEDS: HYDROcodone-ACET 5/325MG TAB PO ONE (23:38)
[2024-05-25] VITALS (79 sets, daily range): BP systolic 71–146; BP diastolic 20–117; PULSE 58–96; RESP 8–29; TEMP 98–98.5; O2SAT 85–97
[2024-05-25] MEDS: ENOXAPARIN SOD 40 MG/0.4 ML SYRINGE SC SCH
[2024-05-25] MEDS: SODIUM CHLOR 0.9% PF (SALINE LOCK) 10ML VIAL/SYR IV SCH (00:01)
[2024-05-25] MEDS: SODIUM CHLORIDE 0.9% 1,000 ML IV SCH (00:07)
[2024-05-25] MEDS: cefEPIME 1gm INJ VIAL IM ONE (00:15)
[2024-05-25] MEDS: NOREPINEPHRINE 8 MG/250ML KIT 250 ML IV SCH (03:24)
[2024-05-25 03:46] LABS: Basophils # (auto) 0.1 10 ^3/uL (0-0.2); Basophils % (auto) 0.7 % (0.0-2.0); Eosinophils # (auto) 0.6 10 ^3/uL (0-0.8); Eosinophils % (auto) 6.2 % (0.0-7.0); Hematocrit 40.9 % (36.0-46.0); Hemoglobin 13.5 g/dL (12.2-16.2); Lymphocytes # (auto) 2.9 10 ^3/uL (0.4-5.4); Lymphocytes % (auto) 27.9 % (10.0-50.0); Mean Corpuscular Hemoglobin 32.8 pg (28.0-32.0); Mean Corpuscular Hgb Conc. 33.1 g/dL (32.0-36.0); Mean Corpuscular Volume 99.2 fL (80.0-100.0); Monocytes % (auto) 10.1 % (0.0-12.0); Neutrophils # (auto) 5.7 10 ^3/uL (1.6-8.6); Neutrophils % (auto) 55.1 % (37.0-80.0); Nucleated Red Blood Cells % 0.1 %; Platelet Count (auto) 262 10^3/uL (140-450); Red Blood Cells 4.12 10^6/uL (4.0-5.20); Red Cell Distribution Width 15.5 % (11.8-14.3); White Blood Cell 10.3 10^3/uL (4.4-10.8)
[2024-05-25 04:05] LABS: INR 0.97 (0.9-1.15); Partial Thromboplastin Time 31.7 SEC (24.5-34.5); Prothrombin Time 10.3 sec (9.3-11.8)
[2024-05-25 04:07] LABS: Alanine Aminotransferase 11 U/L (7-40); Alkaline Phosphatase 83 U/L (46-116); Anion Gap 5 (5-15); Aspartate Aminotransferase 16 U/L (13-40); BUN/Creatinine Ratio 16.2 (10.0-20.0); Blood Urea Nitrogen 21 mg/dL (9-23); Calcium 9.3 mg/dL (8.7-10.4); Carbon Dioxide 23 mmol/L (20-31); Chloride 114 mmol/L (98-107); Glucose 79 mg/dL (74-106); Potassium 3.5 mmol/L (3.5-5.1); Sodium 142 mmol/L (136-145)
[2024-05-25 04:08] LABS: Bilirubin, Total 0.2 mg/dL (0.2-1.0); Total Protein 5.9 g/dL (5.7-8.2)
[2024-05-25] MEDS: MORPHINE SULFATE INJ 2 MG/ml SYRG IV PRN (04:55)
[2024-05-25] MEDS: ONDANSETRON HCL 4 MG/2 ML VIAL IV PRN (04:56)
[2024-05-25] MEDS: SPIRONOLACTONE 25 MG TAB PO SCH (07:21)
[2024-05-25] MEDS: FUROSEMIDE 40 MG TAB PO SCH (07:21)
[2024-05-25] MEDS: GABAPENTIN 100 MG CAP PO SCH (07:22)
[2024-05-25 08:23] LABS: Amphetamine Screen, Urine Neg (NEGATIVE); Barbiturate Scree,Urine Neg (NEGATIVE); Benzodiazephine Screen, Urine Neg (NEGATIVE); Cannabinoid Screen, Urine Neg (NEGATIVE); Cocaine Screen, Urine Neg (NEGATIVE); Opiate Scree,Urine Pos (NEGATIVE); Phencyclidine Screen, Urine Neg (NEGATIVE)
[2024-05-25] MEDS: DULoxetine HCL 30 MG CAP PO SCH (09:31)
[2024-05-25] MEDS: MAGNESIUM OXIDE 400 MG TAB PO SCH (09:31)
[2024-05-25] MEDS: SODIUM CHLORIDE 0.9% 1,000 ML IV ONE (10:30)
--- NOTE | 2024-05-25 11:30 | DVHPNRES ---
Progress Note Date Seen: May 25, 2024 Resident Creating Document: MUNIRA KEYS RESIDENT Medical Necessity Reason Pt with a Central, PICC or Fol: No Subjective Review of Systems Saw the patient at the bedside. Along with the RN team at [facility]. Patient's family at bedside, questions concerns answered. Blood pressure on the softer side intermittently needed Levophed. Patient reports: No new complaints, Feels better Changes from previous H/P or p: No Changes Review of Systems: HEENT:Normal, CVS:Normal, RESPIRATORY:Normal (At baseline patient needs 3 L of nasal cannula oxygen most of the times.), GI:Abnormal (Suprapubic tenderness without CV angle tenderness), :Normal, MSK:Abnormal (Left hip area complicated wound, tenderness, redness, warmth pointing towards local skin and soft tissue infection), NEURO:Normal (AAO x4 grossly normal) Objective vital signs Vital Sign Date Time Temp Pulse Resp B/P (MAP) Pulse Ox O2 Delivery O2 Flow Rate FiO2 05/25/24 10:00 68 05/25/24 09:32 12 97/50 05/25/24 08:00 94 05/25/24 08:00 Nasal Cannula* 3 32 05/25/24 08:00 98.2 98.2 Total Intake and Output 05/24/24 05/24/24 05/25/24 15:00 23:00 07:00 Intake Total 2050 ml 652 ml Balance 2050 ml 652 ml medications Current Medications Medications Dose Ordered Sig/Sumanth Route Start Time Stop Time Status Last Admin Dose Admin Sodium Chloride 10 ml Q8HR IV 05/24/24 22:00 05/25/24 06:12 10 ML Acetaminophen 325 mg Q4HP PRN PO 05/24/24 20:45 Ondansetron HCl 4 mg Q4HP PRN IV 05/24/24 20:45 05/25/24 09:32 4 MG Morphine Sulfate 2 mg Q4HPRN PRN IV 05/24/24 20:45 05/25/24 09:32 2 MG Enoxaparin Sodium 40 mg DAILY SC 05/24/24 20:45 05/25/24 09:31 40 MG Nitroglycerin 0.4 mg Q5MINP PRN SL 05/24/24 20:45 Morphine Sulfate 2 mg Q30M PRN IV 05/24/24 20:45 Sodium Chloride 1,000 ml @ 75 mls/hr [id number] IV 05/24/24 21:15 05/25/24 04:00 75 MLS/HR Vancomycin HCl 0 ml @ 0 mls/hr UD IV 05/24/24 22:30 Docusate Sodium 100 mg BIDPRN PRN PO 05/24/24 22:30 Albuterol 2.5 mg Q6HPRN PRN NEB 05/24/24 22:45 Duloxetine HCl 60 mg DAILY PO 05/25/24 10:00 05/25/24 09:31 60 MG Furosemide 40 mg BIDD PO 05/25/24 06:00 05/25/24 07:21 40 MG Gabapentin 100 mg TID PO 05/25/24 06:00 05/25/24 07:22 100 MG Ipratropium [place] 0.5 mg Q6HPRN PRN NEB 05/24/24 22:45 Spironolactone 25 mg BIDD PO 05/25/24 06:00 05/25/24 07:21 25 MG Magnesium Oxide 400 mg BID PO 05/25/24 10:00 05/25/24 09:31 400 MG Quetiapine Fumarate 400 mg HS PO 05/25/24 22:00 Temazepam 30 mg HS PO 05/25/24 22:00 Zolpidem Tartrate 10 mg QHSP PRN PO 05/24/24 23:00 Norepinephrine Bitartrate 250 ml @ 3.75 mls/hr Q24H IV 05/25/24 03:00 05/25/24 03:24 3.75 MLS/HR Pantoprazole Sodium 40 mg DAILY IV 05/26/24 10:00 UNV Examination: GENERAL:Normal, HEENT:Normal, NECK:Normal, LUNGS:Normal, CVS:Normal, ABDOMEN:Abnormal (Suprapubic tenderness without CV angle tenderness.), MSK:Abnormal (Left buttock tenderness, wound, S chart, redness, swollen, tender warmth likely local cellulitis /Skin and soft tissue infection.), SKIN:Abnormal, NEURO:Normal laboratory and microbiology Laboratory Tests 05/25/24 03:32 Test 05/25/24 03:32 Range/Units Serum Glucose 79 74-106 mg/dL Microbiology Date/Time Source Procedure Growth Status 11/1/24 17:00 Voided Urine Urine Culture - Preliminary Resulted Labs and/or images reviewed: Labs reviewed by me, Image(s) reviewed by me Problem List/Assessment/Plan Problem List/Assessment/Plan Hospital course: A 59-year-old female with a history of hypertension, hyperlipidemia, HFpEF congestive heart failure, COPD, depression, coronary artery disease , cholecystectomy, , tonsillectomy, prior debrided left buttock wound eschar developed after the spider bite presented to the ED with chills, dysuria, nausea, and vomiting for the past week, along with burning pain during urination, suprapubic abdominal pain, and a chronic nonhealing wound with cellulitis and eschar on the left buttock from a spider bite, which has not improved despite antibiotics and wound care, leading to sepsis and debridement; she denies chest pain, palpitations, dizziness, and diarrhea. At admission noted Left buttock tenderness, wound with eschar, redness, swollen, tender, warmth. # septic shock: likely due to UTI And/or left buttock wound cellulitis; giving IVF, ordered blood, urine, and wound cultures, currently on cefepime and vancomycin, monitor labs and blood pressure continuously. Status post IV fluid 1000 mL now on NS 75 cc/hour. Cautious fluid replacement due to underlying heart failure. on low-dose vasopressor peripherally. If needed we will put the patient on central venous catheter and transferred to ICU for higher level of care. # Acute complicated UT: Noted in urinalysis, previous recurrent UTI, ordered urine culture, given 1 dose of Rocephin, on IV cefepime and vancomycin, previously noted several cultures growing E coli and mixed ab. # Acute on chronic hypoxic respiratory failure: Likely due to mild CHF exacerbation with BNP in 120. continuously monitor saturation, currently on 3 L O2 NC. Baseline around 2 L. CXR grossly unremarkable. # Chronic nonhealing left buttock wound cellulitis: Complicated history, persistent wound despite surgical and wound management. cefepime and vancomycin, consulted surgeon for further evaluation, ordered wound culture and wound consult. Previous nasal MRSA negative. In 2018 grew Serratia marcescens. NPO after midnight. surgical consult done. Surgical wound clinic we will be necessary Most likely. Waiting for input. # CAREN likely vasomotor nephropathy : Likely due to sepsis, prerenal type, on IV fluid, avoid nephrotoxic follow daily BMP. 1.51>> 1.3, gradually improving. # chronic Constipation: on Colace, if needed we will add more stool softeners # complex major depressive disorder: with no homicidal or suicidal ideation, continue on duloxetine, Seroquel # chronic Insomnia: On temazepam/Restoril 30 mg at night and zolpidem as needed 10 mg # DVT prophylaxis: Lovenox for now. Close monitoring of CBC daily. # GI prophylaxis: IV pantoprazole daily Diet: NPO after midnight Discussed with Dr. Causey. Code status: Full code. Care discussion needed 39 minutes of discussion. Barriers to discharge: Medical workup and management are ongoing. Earliest discharge planning at recovery. and daughter visiting lives with family at home. Plan discussed with: Patient My Orders My Orders Orders - MUNIRA KEYS RESIDENT Procedure Category Date Status Time Pantoprazole PHA 05/26/24 Logged (Protonix) 10:00 Pantoprazole PHA 05/25/24 Logged (Protonix) 11:15 Labs/Diagnostic Data Laboratory Tests Test 05/25/24 03:32 05/24/24 21:21 05/24/24 17:00 05/24/24 15:37 Range/Units White Blood Count 10.3 10.6 14.0 H 4.4-10.8 10^3/uL Red Blood Count 4.12 4.01 4.44 4.0-5.20 10^6/uL Hemoglobin 13.5 13.7 15.0 12.2-16.2 g/dL Hematocrit 40.9 39.7 43.8 36.0-46.0 % Mean Corpuscular Volume 99.2 99.0 98.5 80.0-100.0 fL Mean Corpuscular Hemoglobin 32.8 H 34.2 H 33.7 H 28.0-32.0 pg Mean Corpuscular Hemoglobin Concent 33.1 34.5 34.3 32.0-36.0 g/dL Red Cell Distribution Width 15.5 H 15.2 H 15.3 H 11.8-14.3 % Platelet Count 262 214 263 140-450 10^3/uL Mean Platelet Volume 8.6 8.2 8.6 6.9-10.8 fL Neutrophils (%) (Auto) 55.1 68.0 75.8 37.0-80.0 % Lymphocytes (%) (Auto) 27.9 16.8 10.8 10.0-50.0 % Monocytes (%) (Auto) 10.1 9.2 8.7 0.0-12.0 % Eosinophils (%) (Auto) 6.2 5.6 3.9 0.0-7.0 % Basophils (%) (Auto) 0.7 0.4 0.8 0.0-2.0 % Neutrophils # (Auto) 5.7 7.2 10.6 H 1.6-8.6 10 ^3/uL Lymphocytes # (Auto) 2.9 1.8 1.5 0.4-5.4 10 ^3/uL Monocytes # (Auto) 1.0 1.0 1.2 0-1.3 10 ^3/uL Eosinophils # (Auto) 0.6 0.6 0.5 0-0.8 10 ^3/uL Basophils # (Auto) 0.1 0 0.1 0-0.2 10 ^3/uL Nucleated Red Blood Cells 0.1 0.0 0.0 % Prothrombin Time 10.3 9.3-11.8 sec Prothrombin Time INR 0.97 0.9-1.15 Activated Partial Thromboplast Time 31.7 24.5-34.5 SEC Sodium Level 142 142 140 136-145 mmol/L Potassium Level 3.5 3.5 4.0 3.5-5.1 mmol/L Chloride Level 114 H 114 H 109 H 98-107 mmol/L Carbon Dioxide Level 23 22 24 20-31 mmol/L Anion Gap 5 6 7 5-15 Blood Urea Nitrogen 21 21 29 H 9-23 mg/dL Creatinine 1.30 H 1.48 H 1.51 H 0.550-1.02 mg/dL Glomerular Filtration Rate Calc 47 40 39 >90 mL/min BUN/Creatinine Ratio 16.2 14.2 19.2 10.0-20.0 Serum Glucose 79 116 H 126 H 74-106 mg/dL Hemoglobin A1c 4.6 <5.7 % A1C Calcium Level 9.3 9.1 9.7 8.7-10.4 mg/dL Total Bilirubin 0.2 < 0.2 L 0.2 0.2-1.0 mg/dL Aspartate Amino Transferase (AST) 16 15 21 13-40 U/L Alanine Aminotransferase (ALT) 11 13 16 7-40 U/L Alkaline Phosphatase 83 90 89 46-116 U/L Total Protein 5.9 5.9 6.4 5.7-8.2 g/dL Albumin 4.0 3.7 4.2 3.2-4.8 g/dL Vitamin B12 Level 2034 H 211-911 pg/mL Vitamin D 25-Hydroxy 81.8 30.0-100 ng/mL Thyroid Stimulating Hormone (TSH) 2.86 0.55-4.78 uIU/mL Urine Color Dark-yellow Yellow Urine Clarity Turbid H Clear Urine pH 5.5 5.0-9.0 Urine Specific [place] 1.009 1.001-1.035 Urine Protein Trace H Negative Urine Ketones Negative Negative Urine Blood 3+ H Negative /uL Urine Nitrite 1+ H Negative Urine Bilirubin Negative Negative Urine Urobilinogen Normal Negative mg/dL Urine Leukocyte Esterase 3+ Negative /uL Urine RBC 487 0 - 4 /hpf Urine WBC 627 0 - 5 /hpf Urine Squamous Epithelial Cells Few <5 /hpf Urine Bacteria Few H None Seen /hpf Urine Hyaline Casts Mod 0 - 2 /lpf Urine Glucose Normal Normal mg/dL Urine Opiates Screen Pos NEGATIVE Urine Fentanyl Screen Neg NEGATIVE Urine Barbiturates Screen Neg NEGATIVE Urine Phencyclidine Screen Neg NEGATIVE Urine Amphetamines Screen Neg NEGATIVE Urine Benzodiazepines Screen Neg NEGATIVE Urine Cocaine Screen Neg NEGATIVE Urine Cannabinoids Screen Neg NEGATIVE Lactic Acid Level 1.2 0.4-2.0 mmol/L Troponin I High Sensitivity 3 L </=34 ng/L B-Type Natriuretic Peptide 120.40 0-100 pg/mL Microbiology Date/Time Source Procedure Growth Status 05/24/24 17:00 Voided Urine Urine Culture - Preliminary Resulted Date of Service: May 25, 2024 Billing Provider: XIMENA CAUSEY MD Common Visit Codes: [id number] INP/OBS CARE(HIGH) MUNIRA KEYS RESIDENT May 25, 2024 11:30 XIMENA CAUSEY MD May 25, 2024 19:20
--- NOTE | 2024-05-25 12:12 | MEDREC ---
[facility] Intervention Section I [facility] Intervention: Review courses of therapy (PLEASE CONSIDER ADDING ANTIBIOTIC TO COVER FOR GRAM NEGATIVE RODS GROWING IN PRELIMINARY URINE CULTURE ) EMIR GARCIA May 25, 2024 12:12
[2024-05-25] MEDS: PANTOPRAZOLE 40 MG/10 ML VIAL INJ IV ONE (13:42)
[2024-05-25] MEDS: POTASSIUM CHL 20 Meq TABLET PO ONE (13:42)
[2024-05-25] MEDS: VANCOMYCIN 1GM/200ML PREMIX 200 ML IV SCH (17:44)
[2024-05-25] MEDS: QUEtiapine FUMARATE 100 MG TAB PO SCH (20:54)
[2024-05-25] MEDS: HYDROcodone-ACET 5/325MG TAB PO PRN (20:55)
[2024-05-25] MEDS: TEMAZEPAM 15 MG CAP PO SCH (20:55)
[2024-05-25] MEDS: MEROPENEM 1GM IVPB 50 ML IV SCH (20:56)
[2024-05-26] VITALS (90 sets, daily range): BP systolic 77–129; BP diastolic 38–75; PULSE 59–107; RESP 10–31; TEMP 97.3–99; O2SAT 85–97
[2024-05-26 05:47] LABS: Basophils # (auto) 0 10 ^3/uL (0-0.2); Basophils % (auto) 0.5 % (0.0-2.0); Eosinophils # (auto) 0.4 10 ^3/uL (0-0.8); Eosinophils % (auto) 4.8 % (0.0-7.0); Hematocrit 41.6 % (36.0-46.0); Hemoglobin 13.7 g/dL (12.2-16.2); Lymphocytes # (auto) 2.6 10 ^3/uL (0.4-5.4); Lymphocytes % (auto) 34.1 % (10.0-50.0); Mean Corpuscular Hemoglobin 32.8 pg (28.0-32.0); Mean Corpuscular Hgb Conc. 32.8 g/dL (32.0-36.0); Mean Corpuscular Volume 99.8 fL (80.0-100.0); Monocytes # (auto) 0.6 10 ^3/uL (0-1.3); Monocytes % (auto) 7.6 % (0.0-12.0); Neutrophils # (auto) 4.1 10 ^3/uL (1.6-8.6); Platelet Count (auto) 232 10^3/uL (140-450); Red Blood Cells 4.16 10^6/uL (4.0-5.20); Red Cell Distribution Width 15.6 % (11.8-14.3); White Blood Cell 7.7 10^3/uL (4.4-10.8)
[2024-05-26 06:03] LABS: Anion Gap 8 (5-15); Carbon Dioxide 24 mmol/L (20-31); Chloride 114 mmol/L (98-107); Potassium 3.9 mmol/L (3.5-5.1); Sodium 146 mmol/L (136-145)
[2024-05-26 06:05] LABS: Calcium 9.5 mg/dL (8.7-10.4)
[2024-05-26 06:09] LABS: Glucose 100 mg/dL (74-106)
[2024-05-26 06:10] LABS: BUN/Creatinine Ratio 19.4 (10.0-20.0); Blood Urea Nitrogen 14 mg/dL (9-23)
[2024-05-26] MEDS: PANTOPRAZOLE 40 MG/10 ML VIAL INJ IV SCH (08:32)
[2024-05-26] MEDS: POTASSIUM CHL 20 Meq TABLET PO SCH (08:33)
--- NOTE | 2024-05-26 13:09 | DVH ---
EXAM: CT HEAD WITHOUT CONTRAST INDICATION: Headaches TECHNIQUE: CT of the head without intravenous contrast. Coronal and sagittal reformatted images are submitted. Radiation Dose : 1. Head: CT Dose: CTDI volume is 57.79 mGy. Dose-length product is 1023.19 mGy*cm The dose indicators for CT are the volume Computed Tomography (CT) Dose Index (CTDIvol) and the Dose Length Product (DLP), and are measured in units of mGy and mGy-cm, respectively. These indicators are not patient dose, but values generated from the CT scanner acquisition factors. The report includes radiation exposure data for exposures received during this examination. All CT scans at this medical facility are performed using dose modulation techniques as appropriate to a performed exam including the following: Automated exposure control was utilized; adjustment of the MA and/or KV according to patient size; and use of iterative reconstruction technique. COMPARISON: CT HEAD WITHOUT CONTRAST on DOS: 03/19/24 FINDINGS: There is no evidence of acute intracranial hemorrhage, extra-axial collection, mass effect, midline s hift, herniation or hydrocephalus. The ventricles, sulci and cisterns are age appropriate. The rangel-white differentiation is intact. The visualized paranasal sinuses and mastoid air cells are clear. No depressed calvarial fracture. The surrounding soft tissues are unremarkable. IMPRESSION: 1. No evidence of acute intracranial abnormality.
--- NOTE | 2024-05-26 13:31 | DVHPN2 ---
Subjective The patient is seen and examined at bedside. No complaint today. Remained tired Reviewed: Care Plan, H&P, Labs, Medications, Previous Orders, Radiology Changes from previous H/P or p: No Changes Eyes: No Pain, No Vision change, No Conjunctivae inflammation, No Eyelid inflammation, No Other, No Redness ENT: No Ear pain, No Ear discharge, No Nose pain, No Nose discharge, No Nose congestion, No Mouth pain, No Mouth swelling, No Throat pain, No Throat swelling, No Other Cardiovascular: No Chest Pain, No Palpitations, No Orthopnea, No Paroxysmal Noc. Dyspnea, No Edema, No Lt Headedness, No Other Respiratory: Shortness of breath Gastrointestinal: Constipation Genitourinary: Dysuria, Other (Suprapubic abdominal pain) Musculoskeletal: No other, No neck pain, No shoulder pain, No arm pain, No back pain, No hand pain, No leg pain, No foot pain Skin: Other (Left buttock wound) Objective Vitals Vital Signs Date Time Temp Pulse Resp B/P (MAP) Pulse Ox O2 Delivery O2 Flow Rate FiO2 05/26/24 12:00 93 Room Air 0.0 05/26/24 12:00 18 32 05/26/24 12:00 90 05/26/24 11:30 107/61 (76) 05/26/24 08:00 97.6 97.6 Intake/Output Intake and Output 05/26/24 07:00 Intake Total 2663.25 ml Output Total 2100 ml Balance 563.25 ml Intake Oral 240 ml IV Total 2183.25 ml Tube Feeding 240 ml Output Urine Total 2100 ml # Voids 4 General Appearance: Alert, Cooperative, No acute distress HEENT: Atraumatic, PERRLA, EOMI, Mucous membr. moist/pink Neck: Supple Lungs: Clear to auscultation, Normal air movement Cardiovascular: Regular rate, Normal S1, Normal S2, No murmurs, Gallops Abdomen: Normal bowel sounds, Soft, No tenderness Neuro: Cranial nerves 3-12 NL Psych/Mental Status: Mental status NL Medications Current Medications Medications Dose Ordered Sig/Sumanth Route Start Time Stop Time Status Last Admin Dose Admin Sodium Chloride 10 ml Q8HR IV 05/24/24 22:00 05/26/24 08:41 10 ML Acetaminophen 325 mg Q4HP PRN PO 05/24/24 20:45 Ondansetron HCl 4 mg Q4HP PRN IV 05/24/24 20:45 05/26/24 02:13 4 MG Morphine Sulfate 2 mg Q4HPRN PRN IV 05/24/24 20:45 05/26/24 08:32 2 MG Enoxaparin Sodium 40 mg DAILY SC 05/24/24 20:45 05/26/24 08:37 40 MG Nitroglycerin 0.4 mg Q5MINP PRN SL 05/24/24 20:45 Morphine Sulfate 2 mg Q30M PRN IV 05/24/24 20:45 Sodium Chloride 1,000 ml @ 75 mls/hr [id number] IV 05/24/24 21:15 05/26/24 02:12 75 MLS/HR Vancomycin HCl 0 ml @ 0 mls/hr UD IV 05/24/24 22:30 Docusate Sodium 100 mg BIDPRN PRN PO 05/24/24 22:30 Albuterol 2.5 mg Q6HPRN PRN NEB 05/24/24 22:45 Duloxetine HCl 60 mg DAILY PO 05/25/24 10:00 05/26/24 08:33 60 MG Furosemide 40 mg BIDD PO 05/25/24 06:00 05/26/24 05:17 40 MG Gabapentin 100 mg TID PO 05/25/24 06:00 05/26/24 05:17 100 MG Ipratropium [place] 0.5 mg Q6HPRN PRN NEB 05/24/24 22:45 Spironolactone 25 mg BIDD PO 05/25/24 06:00 05/26/24 05:17 25 MG Magnesium Oxide 400 mg BID PO 05/25/24 10:00 05/26/24 08:33 400 MG Quetiapine Fumarate 400 mg HS PO 05/25/24 22:00 05/25/24 20:54 400 MG Temazepam 30 mg HS PO 05/25/24 22:00 05/25/24 20:55 30 MG Zolpidem Tartrate 10 mg QHSP PRN PO 05/24/24 23:00 Norepinephrine Bitartrate 250 ml @ 3.75 mls/hr Q24H IV 05/25/24 03:00 05/26/24 02:15 15 MLS/HR Pantoprazole Sodium 40 mg DAILY IV 05/26/24 10:00 05/26/24 08:32 40 MG Potassium Chloride 20 meq DAILY PO 05/26/24 10:00 05/26/24 08:33 20 MEQ Acetaminophen/ Hydrocodone Bitart 1 tab Q6HPRN PRN PO 05/25/24 13:30 05/26/24 05:16 1 TAB Meropenem 50 ml @ 17 mls/hr Q8HR IV 05/25/24 22:00 05/26/24 05:14 17 MLS/HR Vancomycin HCl 200 ml @ 200 mls/hr Q8H IV 05/26/24 13:00 Laboratory Results Laboratory Tests 05/26/24 05:06 Chemistry Test 05/26/24 05:06 Calcium Level 9.5 mg/dL (8.7-10.4) Urinalysis Test 05/24/24 17:00 Urine Color Dark-yellow (Yellow) Urine Clarity Turbid (Clear) H Urine pH 5.5 (5.0-9.0) Urine Specific [place] 1.009 (1.001-1.035) Urine Protein Trace (Negative) H Urine Ketones Negative (Negative) Urine Blood 3+ /uL (Negative) H Urine Nitrite 1+ (Negative) H Urine Bilirubin Negative (Negative) Urine Urobilinogen Normal mg/dL (Negative) Urine Leukocyte Esterase 3+ /uL (Negative) Urine RBC 487 /hpf (0 - 4) Urine WBC 627 /hpf (0 - 5) Urine Squamous Epithelial Cells Few /hpf (<5) Urine Bacteria Few /hpf (None Seen) H Urine Hyaline Casts Mod /lpf (0 - 2) Urine Glucose Normal mg/dL (Normal) Microbiology Microbiology Date/Time Source Procedure Growth Status 05/25/24 09:50 Buttock Gram Stain - Final Resulted 05/25/24 09:50 Buttock Wound Culture - Preliminary Resulted 05/24/24 17:00 Voided Urine Urine Culture - Final Escherichia coli - ESBL Complete 05/24/24 15:37 Blood Blood Culture - Preliminary NO GROWTH AFTER 24 HOURS OF INCUBATION. Resulted Labs and/or images reviewed: Labs reviewed by me Assessment/Plan Assessment/Plan # septic shock: likely due to UTI and/or left buttock wound cellulitis; giving IVF, ordered blood, urine, and wound cultures, continuing on cefepime and vancomycin, monitor labs and blood pressure continuously. Status post IV fluid 1000 mL now on NS 75 cc/hour. Cautious fluid replacement due to underlying heart failure. on low-dose vasopressor peripherally. We will order PICC line today # Acute complicated UT: Noted in urinalysis, previous recurrent UTI, ordered urine culture, given 1 dose of Rocephin, on IV cefepime and vancomycin, previously noted several cultures growing E coli and mixed ab. # Acute on chronic hypoxic respiratory failure: Likely due to mild CHF exacerbation with BNP in 120. continuously monitor saturation, currently on 3 L O2 NC. Baseline around 2 L. CXR grossly unremarkable. # Chronic nonhealing left buttock wound cellulitis: Complicated history, persistent wound despite surgical and wound management. cefepime and vancomycin, consulted surgeon for further evaluation, ordered wound culture and wound consult. Previous nasal MRSA negative. In 2018 grew Serratia marcescens. NPO after midnight. surgical consult done. Surgical wound clinic we will be necessary Most likely. Waiting for input. # CAREN likely vasomotor nephropathy : Likely due to sepsis, prerenal type, on IV fluid, avoid nephrotoxic follow daily BMP. 1.51>> 1.3, gradually improving. # chronic Constipation: on Colace, if needed we will add more stool softeners # complex major depressive disorder: with no homicidal or suicidal ideation, continue on duloxetine, Seroquel # chronic Insomnia: On temazepam/Restoril 30 mg at night and zolpidem as needed 10 mg # metabolic encephalopathy. We will order CT head to rule out acute CVA. # DVT prophylaxis: Lovenox for now. Close monitoring of CBC daily. # GI prophylaxis: IV pantoprazole daily Plan discussed with: Patient My Orders Orders - XIMENA HOGUE MD Procedure Category Date Status Time Head Without Contrast CT 05/26/24 Resulted 10:34 Date of Service: May 26, 2024 Billing Provider: XIMENA HOGUE MD Common Visit Codes: [id number] INP/OBS CARE(HIGH) XIMENA HOGUE MD May 26, 2024 13:31
[2024-05-26] MEDS: VANCOMYCIN 1GM/200ML PREMIX 200 ML IV SCH (13:49)
[2024-05-26] MEDS: KETOROLAC TROMETH 30 MG/ML 1ML VIAL IV ONE (14:35)
[2024-05-26] MEDS ORDERED: ALBUTEROL SULF 2.5 MG/0.5ML(0.5%) NEB SOLN NEB ONE (15:45)
[2024-05-26] MEDS: DOCUSATE SOD 100 MG CAP PO PRN (17:24)
[2024-05-27] VITALS (83 sets, daily range): BP systolic 79–133; BP diastolic 37–68; PULSE 52–112; RESP 9–35; TEMP 97.4–98.3; O2SAT 84–98
[2024-05-27 05:34] LABS: Basophils # (auto) 0.1 10 ^3/uL (0-0.2); Basophils % (auto) 0.9 % (0.0-2.0); Eosinophils # (auto) 0.5 10 ^3/uL (0-0.8); Lymphocytes # (auto) 2.6 10 ^3/uL (0.4-5.4); Lymphocytes % (auto) 32.8 % (10.0-50.0); Mean Corpuscular Hemoglobin 32.9 pg (28.0-32.0); Mean Corpuscular Hgb Conc. 33.2 g/dL (32.0-36.0); Monocytes # (auto) 0.7 10 ^3/uL (0-1.3); Monocytes % (auto) 8.5 % (0.0-12.0); Neutrophils % (auto) 50.8 % (37.0-80.0); Platelet Count (auto) 232 10^3/uL (140-450); Red Blood Cells 3.94 10^6/uL (4.0-5.20); Red Cell Distribution Width 15.1 % (11.8-14.3); White Blood Cell 7.9 10^3/uL (4.4-10.8)
--- NOTE | 2024-05-27 08:12 | DVHPNRES ---
Progress Note Date Seen: May 27, 2024 Resident Creating Document: MUNIRA KEYS RESIDENT Medical Necessity Reason Pt with a Central, PICC or Fol: No Subjective Review of Systems Saw the patient with bedside today, patient's was bedside. Questions and concerns addressed. Patient is getting IV antibiotics, still needing as needed peripheral line Levophed, bedside IVC checked by ultrasound shows collapsible IVC more than 50%, patient is euvolemic, IV boluses of Ringer lactate given we will try to avoid levophed support as much as possible Patient reports: No new complaints Changes from previous H/P or p: No Changes Review of Systems: HEENT:Normal, CVS:Normal, RESPIRATORY:Normal, GI:Normal, :Normal, MSK:Abnormal (Left buttock pain/tenderness unchanged. Low back pain), NEURO:Normal Objective vital signs Vital Sign Date Time Temp Pulse Resp B/P (MAP) Pulse Ox O2 Delivery O2 Flow Rate FiO2 05/27/24 08:05 64 16 119/58 05/27/24 06:45 92 05/27/24 06:23 Nasal Cannula* 3 32 05/27/24 04:00 98.0 98.0 Total Intake and Output 05/26/24 05/26/24 05/27/24 15:00 23:00 07:00 Intake Total 888.50 ml 1297.25 ml 1261.25 ml Output Total 1300 ml 1800 ml Balance 888.50 ml -2.75 ml -538.75 ml medications Current Medications Medications Dose Ordered Sig/Sumanth Route Start Time Stop Time Status Last Admin Dose Admin Sodium Chloride 10 ml Q8HR IV 05/24/24 22:00 05/27/24 05:29 10 ML Acetaminophen 325 mg Q4HP PRN PO 05/24/24 20:45 Ondansetron HCl 4 mg Q4HP PRN IV 05/24/24 20:45 05/26/24 18:42 4 MG Morphine Sulfate 2 mg Q4HPRN PRN IV 05/24/24 20:45 05/27/24 08:05 2 MG Enoxaparin Sodium 40 mg DAILY SC 05/24/24 20:45 05/26/24 08:37 40 MG Nitroglycerin 0.4 mg Q5MINP PRN SL 05/24/24 20:45 Morphine Sulfate 2 mg Q30M PRN IV 05/24/24 20:45 Sodium Chloride 1,000 ml @ 75 mls/hr [id number] IV 05/24/24 21:15 05/26/24 18:20 75 MLS/HR Vancomycin HCl 0 ml @ 0 mls/hr UD IV 05/24/24 22:30 Docusate Sodium 100 mg BIDPRN PRN PO 05/24/24 22:30 05/26/24 17:24 100 MG Albuterol 2.5 mg Q6HPRN PRN NEB 05/24/24 22:45 Duloxetine HCl 60 mg DAILY PO 05/25/24 10:00 05/26/24 08:33 60 MG Furosemide 40 mg BIDD PO 05/25/24 06:00 05/27/24 05:29 40 MG Gabapentin 100 mg TID PO 05/25/24 06:00 05/27/24 05:29 100 MG Ipratropium [place] 0.5 mg Q6HPRN PRN NEB 05/24/24 22:45 Spironolactone 25 mg BIDD PO 05/25/24 06:00 05/27/24 05:29 25 MG Magnesium Oxide 400 mg BID PO 05/25/24 10:00 05/26/24 21:18 400 MG Quetiapine Fumarate 400 mg HS PO 05/25/24 22:00 05/26/24 21:19 400 MG Temazepam 30 mg HS PO 05/25/24 22:00 05/26/24 21:19 30 MG Zolpidem Tartrate 10 mg QHSP PRN PO 05/24/24 23:00 Norepinephrine Bitartrate 250 ml @ 3.75 mls/hr Q24H IV 05/25/24 03:00 05/26/24 02:15 15 MLS/HR Pantoprazole Sodium 40 mg DAILY IV 05/26/24 10:00 05/26/24 08:32 40 MG Potassium Chloride 20 meq DAILY PO 05/26/24 10:00 05/26/24 08:33 20 MEQ Acetaminophen/ Hydrocodone Bitart 1 tab Q6HPRN PRN PO 05/25/24 13:30 05/27/24 05:39 1 TAB Meropenem 50 ml @ 17 mls/hr Q8HR IV 05/25/24 22:00 05/27/24 05:28 17 MLS/HR Vancomycin HCl 200 ml @ 200 mls/hr Q8H IV 05/26/24 13:00 05/27/24 04:32 200 MLS/HR Examination: GENERAL:Normal, HEENT:Normal, NECK:Normal, LUNGS:Abnormal (Baseline 3 L of nasal cannula oxygen patient continues to have, basal rales for up long-term, continues to have incentive spirometry), CVS:Normal, ABDOMEN:Normal, MSK:Abnormal (Left buttock swelling, tenderness, pain and dressing intact. Redness improved, swelling mildly improved), SKIN:Normal, NEURO:Normal, :Normal laboratory and microbiology Laboratory Tests 05/27/24 05:02 05/26/24 05:06 Test 05/26/24 05:06 Range/Units Serum Glucose 100 74-106 mg/dL Microbiology Date/Time Source Procedure Growth Status 05/25/24 09:50 Buttock Gram Stain - Final Resulted 05/25/24 09:50 Buttock Wound Culture - Preliminary Resulted 05/24/24 17:00 Voided Urine Urine Culture - Final Escherichia coli - ESBL Complete 05/24/24 15:37 Blood Blood Culture - Preliminary NO GROWTH AFTER 48 HOURS OF INCUBATION. Resulted Labs and/or images reviewed: Labs reviewed by me, Image(s) reviewed by me Problem List/Assessment/Plan Problem List/Assessment/Plan Hospital course: A 59-year-old female with a history of hypertension, hyperlipidemia, HFpEF congestive heart failure, COPD, depression, coronary artery disease , cholecystectomy, , tonsillectomy, prior debrided left buttock wound eschar developed after the spider bite presented to the ED with chills, dysuria, nausea, and vomiting for the past week, along with burning pain during urination, suprapubic abdominal pain, and a chronic nonhealing wound with cellulitis and eschar on the left buttock from a spider bite, which has not improved despite antibiotics and wound care, leading to sepsis and debridement; she denies chest pain, palpitations, dizziness, and diarrhea. At admission noted Left buttock tenderness, wound with eschar, redness, swollen, tender, warmth. Patient has been found with ESBL in both urine and wound cultures. Status post IV antibiotics waiting for surgical debridement and wound VAC placement. # septic shock: likely due to UTI And/or left buttock wound cellulitis; giving IVF, ordered blood, urine, and wound cultures both growing ESBL. Cautious fluid replacement due to underlying heart failure. on low-dose vasopressor peripherally 2-4 Levophed as needed. Check bedside IVC likely euvolemic 500 cc of bolus, we will try to avoid as much as possible of vasopressor support. # Acute complicated UTI: ESBL, on meropenem, we will not downgrade to amlodipine them as patient might have Pseudomonas in the wound # Acute on chronic hypoxic respiratory failure: Likely due to mild CHF exacerbation with BNP in 120. Along with COPD continuously monitor saturation, currently on 3 L O2 NC. Baseline around 2 L. CXR grossly unremarkable. # Chronic nonhealing left buttock wound cellulitis: Brown recluse spider bite few months ago. Complicated history, persistent wound despite surgical and wound management. cefepime and vancomycin, consulted surgeon for further evaluation, ordered wound culture and wound consult. Previous nasal MRSA negative. In 2018 grew Serratia marcescens. ESBL. NPO after midnight. Waiting for surgical intervention on 05/29/2024. Cautious pain management. To continue. # chronic cigarette smokin pack-year smoking history all the patient previously mentioned quitting but she confessed of having active smoking. Bedside counseling done for 11 minutes for smoking cessation # COPD with chronic hypoxic respiratory failure: Oxygen dependent most of the times at home with exertion and sleeping 3 L nasal cannula baseline, history of COPD likely due to heavy smoking history. Continues to smoke. # CAREN likely vasomotor nephropathy, resolved. : Likely due to sepsis, prerenal type, on IV fluid, avoid nephrotoxic follow daily BMP. 1.51>> 1.3>>0.7, gradually improving. Monitor input output # Mild hypokalemia: on oral potassium supplement. # chronic Constipation: on Colace, if needed we will add more stool softeners, BM + # complex major depressive disorder: with no homicidal or suicidal ideation, continue on duloxetine, Seroquel # chronic Insomnia: On temazepam/Restoril 30 mg at night and zolpidem as needed 10 mg, # DVT prophylaxis: Lovenox for now. Close monitoring of CBC daily. # GI prophylaxis: IV pantoprazole daily # delirium precaution: Continue reorientation, sleep hygiene, family present at bedside, day time open window and nighttime avoidance of room light as needed melatonin. TV and music as needed Diet: Continue diet now, NPO after midnight for surgical procedure Discussed with Dr. Faulkner Code status: Full code. Care discussion needed 39 minutes of discussion. Barriers to discharge: Medical workup and management are ongoing. Earliest discharge planning at recovery. and daughter visiting lives with family at home. If blood pressure remains stable we will try to downgrade to telemetry tomorrow. Plan discussed with: Patient, Other Labs/Diagnostic Data Laboratory Tests Test 05/27/24 05:02 Range/Units White Blood Count 7.9 4.4-10.8 10^3/uL Red Blood Count 3.94 L 4.0-5.20 10^6/uL Hemoglobin 13.0 12.2-16.2 g/dL Hematocrit 39.0 36.0-46.0 % Mean Corpuscular Volume 99.0 80.0-100.0 fL Mean Corpuscular Hemoglobin 32.9 H 28.0-32.0 pg Mean Corpuscular Hemoglobin Concent 33.2 32.0-36.0 g/dL Red Cell Distribution Width 15.1 H 11.8-14.3 % Platelet Count 232 140-450 10^3/uL Mean Platelet Volume 8.4 6.9-10.8 fL Neutrophils (%) (Auto) 50.8 37.0-80.0 % Lymphocytes (%) (Auto) 32.8 10.0-50.0 % Monocytes (%) (Auto) 8.5 0.0-12.0 % Eosinophils (%) (Auto) 7.0 0.0-7.0 % Basophils (%) (Auto) 0.9 0.0-2.0 % Neutrophils # (Auto) 4.0 1.6-8.6 10 ^3/uL Lymphocytes # (Auto) 2.6 0.4-5.4 10 ^3/uL Monocytes # (Auto) 0.7 0-1.3 10 ^3/uL Eosinophils # (Auto) 0.5 0-0.8 10 ^3/uL Basophils # (Auto) 0.1 0-0.2 10 ^3/uL Nucleated Red Blood Cells 0.0 % Creatinine 0.60 0.550-1.02 mg/dL Glomerular Filtration Rate Calc 103 >90 mL/min Microbiology Date/Time Source Procedure Growth Status 05/25/24 09:50 Buttock Gram Stain - Final Resulted 05/25/24 09:50 Buttock Wound Culture - Preliminary Resulted 05/24/24 17:00 Voided Urine Urine Culture - Final Escherichia coli - ESBL Complete 05/24/24 15:37 Blood Blood Culture - Preliminary NO GROWTH AFTER 48 HOURS OF INCUBATION. Resulted Date of Service: May 27, 2024 Billing Provider: СВЕТЛАНА FAULKNER MD Common Visit Codes: 71148-[id number] INP/OBS CARE(HIGH), [id number] CARE 30-74 MIN, PROCEDURE ONLY (Cardiac point of care ultrasound [id number]) Coding Comment Comment I saw and evaluated the patient. I reviewed the residents note and agree with findings and plan as documented in the residents note. Total critical care time spent on this patient more than 30 minutes including evaluation, chart review, formulating plan and communication with team, excluding any procedures POCUS done today and interpreted by me Cardiac: Technically dificult study, no pericardial effusion, IVC less than 2 cm with less than 50% excursion on inspiration Lung: No B-lines, no pleural effusion MUNIRA KEYS May 27, 2024 08:12 СВЕТЛАНА FAULKNER MD May 27, 2024 21:17
--- NOTE | 2024-05-27 12:17 | MEDREC ---
[facility] Intervention Section I [facility] Intervention: Deescalate AB based on CS (PLEASE CONSIDER DE-ESCALATION BASED ON CULTURE RESULTS (D/C VANCOMYCIN) ) NAZ PISANO PHARMACIST May 27, 2024 12:17
[2024-05-27] MEDS: IOHEXOL 300 MG/ML 100ML BOTTLE IJ ONE (12:37)
--- NOTE | 2024-05-27 12:44 | DVHINCON2 ---
Date of service: May 27, 2024 Family History: Alcoholism G8 BROTHER G8 BROTHER G8 SISTER G8 SISTER Cervical cancer G8 MOTHER Chronic obstructive pulmonary disease G8 BROTHER G8 BROTHER G8 SISTER G8 SISTER Depression G8 MOTHER Hypertension G8 MOTHER G8 BROTHER G8 BROTHER G8 SISTER G8 SISTER Allergies: Coded Allergies: Codeine (Unverified Allergy, Unknown, 06/21/23) Influenza Vaccines (Unverified Allergy, Unknown, 06/21/23) Pneumococcal Vaccines (Unverified Allergy, Unknown, 06/21/23) Home Meds Active Scripts Doxycycline Hyclate (DOXYCYCLINE HYCLATE) 100 Mg Tab, 1 TAB PO BID for 5 Days, #10 TAB 0 Refills Prov:CARINE JENKINS RESIDENT 03/25/24 Cephalexin (KEFLEX CAPSULE) 250 Mg Cp, 2 CAP PO BID for 7 Days, #28 CAP Prov:JOHAN BARRIENTOS DO 03/24/24 Umeclidinium-Vilanterol (Anoro Ellipta 62.5-25 Mcg/INH) 1 Aer Aer, 1 AER IN DAILY for 30 Days, #30 AER Prov:DELANEY PHIPPS MD 06/23/23 Quetiapine Fumerate (Seroquel) 50 Mg Tab, 1 TAB PO QPM, #30 TAB Prov:MELISSA MCNALLY MD 07/11/22 Spironolactone (Aldactone) 25 Mg Tab, 25 MG PO BIDD, #60 TAB Prov:MELISSA MCNALLY MD 07/11/22 Magnesium Oxide (Mag-Ox) 400 Mg Tb, 400 MG PO BID, #14 TAB Prov:MELISSA MCNALLY MD 07/11/22 Ipratropium [place] (Ipratropium [place]) 0.02 % [place], 0.5 MG NEB Q6HPRN PRN, #30 ML Prov:MELISSA MCNALLY MD 07/11/22 Gemfibrozil (Gemfibrozil) 600 Mg Tab, 600 MG PO BID, #60 TAB Prov:MELISSA MCNALLY MD 07/11/22 Gabapentin (Gabapentin) 100 Mg Cap, 100 MG PO TID, #30 CAP Prov:MELISSA MCNALLY MD 12/19/22 Duloxetine Hydrochloride (Duloxetine Hydrochloride) 30 Mg Cap, 60 MG PO DAILY, #60 CAP Prov:MELISSA MCNALLY MD 07/11/22 Carvedilol (COREG) 12.5 Mg Tab, 6.25 MG PO BID, #60 TAB Prov:MELISSA MCNALLY MD 07/11/22 Albuterol Sulfate (Ventolin) 2.5 Mg/0.5 Ml Nb, 2.5 MG NEB Q6HPRN PRN, #30 INH Prov:MELISSA MCNALLY MD 07/11/22 Reported Medications Gabapentin (Gabapentin) 400 Mg Cap, 1 CAP PO QID 03/20/24 Quetiapine Fumerate (QUETIAPINE FUMARATE) 400 Mg Tab, 1 TAB PO HS 03/20/24 Pregabalin (Pregabalin) 150 Mg Cap, 1 CAP PO TID 03/20/24 Zolpidem Tartrate (Zolpidem Tartrate) 10 Mg Tab, 1 TAB PO QHSP PRN for FOR INSOMNIA 03/20/24 Furosemide (Furosemide) 40 Mg Tab, 1 TAB PO BID 03/20/24 Hydrocodone-Acetaminophen (Hydrocodone/Acetaminophen 10-325 mg) 1 Tab Tab, 1 TAB PO 07/08/22 Temazepam (Temazepam) 30 Mg Cap, 1 CAP PO HS, #30 CAP 1 Refill 10/18/17 Current Medications Current Medications Medications (Trade) Dose Ordered Sig/Sumanth Route PRN Reason Start Time Stop Time Status Last Admin Vancomycin HCl 200 ml @ 200 mls/hr Q8H IV 05/26/24 13:00 05/27/24 04:32 Ibuprofen (Motrin Tablet) 400 mg Q8HR PO 05/27/24 14:00 Acetaminophen (Tylenol Tablet) 650 mg Q8HR PO 05/27/24 14:00 Vital Signs Vital Signs Date Time Temp Pulse Resp B/P (MAP) Pulse Ox O2 Delivery O2 Flow Rate FiO2 05/27/24 11:51 15 92 Nasal Cannula* 3 32 05/27/24 11:00 66 98/37 (57) 05/27/24 04:00 98.0 98.0 Labs/Diagnostic Data Labs Test 05/27/24 12:00 05/27/24 05:02 05/26/24 05:06 05/25/24 03:32 Range/Units White Blood Count 7.9 4.4-10.8 10^3/uL Red Blood Count 3.94 L 4.0-5.20 10^6/uL Hemoglobin 13.0 12.2-16.2 g/dL Hematocrit 39.0 36.0-46.0 % Mean Corpuscular Volume 99.0 80.0-100.0 fL Mean Corpuscular Hemoglobin 32.9 H 28.0-32.0 pg Mean Corpuscular Hemoglobin Concent 33.2 32.0-36.0 g/dL Red Cell Distribution Width 15.1 H 11.8-14.3 % Platelet Count 232 140-450 10^3/uL Mean Platelet Volume 8.4 6.9-10.8 fL Neutrophils (%) (Auto) 50.8 37.0-80.0 % Lymphocytes (%) (Auto) 32.8 10.0-50.0 % Monocytes (%) (Auto) 8.5 0.0-12.0 % Eosinophils (%) (Auto) 7.0 0.0-7.0 % Basophils (%) (Auto) 0.9 0.0-2.0 % Neutrophils # (Auto) 4.0 1.6-8.6 10 ^3/uL Lymphocytes # (Auto) 2.6 0.4-5.4 10 ^3/uL Monocytes # (Auto) 0.7 0-1.3 10 ^3/uL Eosinophils # (Auto) 0.5 0-0.8 10 ^3/uL Basophils # (Auto) 0.1 0-0.2 10 ^3/uL Nucleated Red Blood Cells 0.0 % Creatinine 0.60 0.550-1.02 mg/dL Glomerular Filtration Rate Calc 103 >90 mL/min Sodium Level 146 H 136-145 mmol/L Potassium Level 3.9 3.5-5.1 mmol/L Chloride Level 114 H 98-107 mmol/L Carbon Dioxide Level 24 20-31 mmol/L Anion Gap 8 5-15 Blood Urea Nitrogen 14 9-23 mg/dL BUN/Creatinine Ratio 19.4 10.0-20.0 Serum Glucose 100 74-106 mg/dL Calcium Level 9.5 8.7-10.4 mg/dL Prothrombin Time 10.3 9.3-11.8 sec Prothrombin Time INR 0.97 0.9-1.15 Activated Partial Thromboplast Time 31.7 24.5-34.5 SEC Hemoglobin A1c 4.6 <5.7 % A1C Total Bilirubin 0.2 0.2-1.0 mg/dL Aspartate Amino Transferase (AST) 16 13-40 U/L Alanine Aminotransferase (ALT) 11 7-40 U/L Alkaline Phosphatase 83 46-116 U/L Total Protein 5.9 5.7-8.2 g/dL Albumin 4.0 3.2-4.8 g/dL Vitamin B12 Level 2034 H 211-911 pg/mL Vitamin D 25-Hydroxy 81.8 30.0-100 ng/mL Thyroid Stimulating Hormone (TSH) 2.86 0.55-4.78 uIU/mL Test 05/24/24 17:00 05/24/24 15:37 Range/Units Urine Color Dark-yellow Yellow Urine Clarity Turbid H Clear Urine pH 5.5 5.0-9.0 Urine Specific [place] 1.009 1.001-1.035 Urine Protein Trace H Negative Urine Ketones Negative Negative Urine Blood 3+ H Negative /uL Urine Nitrite 1+ H Negative Urine Bilirubin Negative Negative Urine Urobilinogen Normal Negative mg/dL Urine Leukocyte Esterase 3+ Negative /uL Urine RBC 487 0 - 4 /hpf Urine WBC 627 0 - 5 /hpf Urine Squamous Epithelial Cells Few <5 /hpf Urine Bacteria Few H None Seen /hpf Urine Hyaline Casts Mod 0 - 2 /lpf Urine Glucose Normal Normal mg/dL Urine Opiates Screen Pos NEGATIVE Urine Fentanyl Screen Neg NEGATIVE Urine Barbiturates Screen Neg NEGATIVE Urine Phencyclidine Screen Neg NEGATIVE Urine Amphetamines Screen Neg NEGATIVE Urine Benzodiazepines Screen Neg NEGATIVE Urine Cocaine Screen Neg NEGATIVE Urine Cannabinoids Screen Neg NEGATIVE Lactic Acid Level 1.2 0.4-2.0 mmol/L Troponin I High Sensitivity 3 L </=34 ng/L B-Type Natriuretic Peptide 120.40 0-100 pg/mL Microbiology Date/Time Source Procedure Growth Status 05/25/24 09:50 Buttock Gram Stain - Final Resulted 05/25/24 09:50 Wound Culture - Preliminary Escherichia coli - ESBL Resulted 05/24/24 17:00 Voided Urine Urine Culture - Final Escherichia coli - ESBL Complete 05/24/24 15:37 Blood Blood Culture - Preliminary NO GROWTH AFTER 48 HOURS OF INCUBATION. Resulted Assessment PATIENT KNOWN TO ME,HAD A PRIOR I AND D OF LEFT THIGH WOUND AND A WOUND VAC APPLICATION, NOW PRESENTING WITH EXACERBATION OF LEFT LATERAL THIGH WOUND, NEEDS FURTHER DEBRIDEMENT AND WOUND VAC REAPPLICATION WILL PROCEED ON 05/29/24 Plan discussed with: Patient, Daughter KARTIK NEAL MD May 27, 2024 12:44
--- NOTE | 2024-05-27 13:13 | DVH ---
CT CT AB PEL WITH IV CON ONLY INDICATION: : 59 old Female abcess EXAM DATE: 05/27/2024 12:37 PM COMPARISON: None RADIATION DOSE: CTDIvol: 22.05 mGy, DLP: 1313.52 mGy*cm PROCEDURE: Helical CT images were obtained of the abdomen and pelvis with IV contrast Sagittal and c oronal reconstructions are provided. ORAL CONTRAST: None. ADDITIONAL IMAGES / REFORMATS: None All CT scans at this medical facility are performed using dose modulation techniques as appropriate t o a performed exam including the following: Automated exposure control was utilized; adjustment of th e MA and/or KV according to patient size; and use of iterative reconstruction technique. FINDINGS: LUNG BASE: Right basilar consolidation is seen. LIVER: Normal. GALLBLADDER AND BILIARY TREE: Cholecystectomy clips are seen. Mild extra-hepatic and CBD dilation. PANCREAS: Normal. SPLEEN: Punctate calcifications are noted. BOWEL: Mild to moderate colonic diverticulosis. Post surgical changes from partial gastrectomy. Alyx l appendix. ADRENALS: Normal. KIDNEYS AND URETER: Punctate nonobstructive left kidney stone. BLADDER: Mild asymmetrical thickening of the bladder wall. REPRODUCTIVE ORGANS: Normal. LYMPH NODES:No lymphadenopathy. PERITONEUM: No ascites or free air. No other fluid collection. VESSELS: Scattered atherosclerotic calcifications are noted. RETROPERITONEUM: Normal. ABDOMINAL WALL: Small umbilical hernia. BONES: Scattered osseous degenerative changes are noted. IMPRESSION: No acute intraabdominal abnormality. No focal fluid collection seen. Mild asymmetrical thickening of the left posterior/lateral bladder wall. Neoplasm is a consideration, consider cystoscopy. Mild to moderate colonic diverticulosis. Post surgical changes from partial gastrectomy.
[2024-05-27] MEDS: ACETAMINOPHEN 325 MG TAB PO SCH (13:39)
[2024-05-27] MEDS: IBUPROFEN 400 MG TAB PO SCH (13:40)
[2024-05-27] MEDS: SODIUM CHLORIDE 0.9% 500 ML IV ONE (13:45)
[2024-05-27 14:28] LABS: Chloride 108 mmol/L (98-107); Potassium 3.4 mmol/L (3.5-5.1); Sodium 143 mmol/L (136-145)
[2024-05-27 14:29] LABS: Anion Gap 5 (5-15); Calcium 9.8 mg/dL (8.7-10.4); Carbon Dioxide 30 mmol/L (20-31)
[2024-05-27 14:34] LABS: BUN/Creatinine Ratio 13.8 (10.0-20.0); Blood Urea Nitrogen 9 mg/dL (9-23); Glucose 100 mg/dL (74-106)
[2024-05-27] MEDS: MORPHINE SULFATE 4 MG/ML SYR/VIAL IV PRN (16:49)
[2024-05-27] MEDS: POTASSIUM EFFERVESENT TAB 25 MEQ PO ONE (16:49)
[2024-05-27] MEDS: POLYETHYLENE GLYCOL 17 GM PWDR PO ONE (18:47)
[2024-05-28] VITALS (59 sets, daily range): BP systolic 80–143; BP diastolic 36–74; PULSE 56–95; RESP 10–27; TEMP 97.1–98.8; O2SAT 86–97
[2024-05-28] MEDS: NOREPINEPHRINE 8 MG/250ML KIT 250 ML IV ONE (05:20)
[2024-05-28] MEDS: MORPHINE SULFATE INJ 2 MG/ml SYRG ONE (05:36)
[2024-05-28 06:08] LABS: Anion Gap 6 (5-15); Basophils # (auto) 0.1 10 ^3/uL (0-0.2); Basophils % (auto) 0.8 % (0.0-2.0); Calcium 9.9 mg/dL (8.7-10.4); Carbon Dioxide 30 mmol/L (20-31); Chloride 108 mmol/L (98-107); Eosinophils # (auto) 0.5 10 ^3/uL (0-0.8); Hematocrit 41.1 % (36.0-46.0); Hemoglobin 13.7 g/dL (12.2-16.2); Lymphocytes # (auto) 2.8 10 ^3/uL (0.4-5.4); Lymphocytes % (auto) 36.8 % (10.0-50.0); Mean Corpuscular Hemoglobin 32.8 pg (28.0-32.0); Mean Corpuscular Hgb Conc. 33.3 g/dL (32.0-36.0); Mean Corpuscular Volume 98.4 fL (80.0-100.0); Monocytes # (auto) 0.6 10 ^3/uL (0-1.3); Neutrophils # (auto) 3.6 10 ^3/uL (1.6-8.6); Neutrophils % (auto) 47.4 % (37.0-80.0); Nucleated Red Blood Cells % 0.2 %; Platelet Count (auto) 229 10^3/uL (140-450); Red Blood Cells 4.18 10^6/uL (4.0-5.20); Red Cell Distribution Width 14.8 % (11.8-14.3); Sodium 144 mmol/L (136-145); White Blood Cell 7.5 10^3/uL (4.4-10.8)
[2024-05-28 06:14] LABS: BUN/Creatinine Ratio 14.8 (10.0-20.0); Blood Urea Nitrogen 9 mg/dL (9-23); Glucose 81 mg/dL (74-106)
[2024-05-28] MEDS ORDERED: NITROGLYCERIN 0.4 MG SL TAB SL PRN (07:45)
[2024-05-28] MEDS ORDERED: ALBUTEROL SULF 2.5 MG/0.5ML(0.5%) NEB SOLN NEB PRN ×2 (07:45→20:15)
[2024-05-28] MEDS ORDERED: VANCOMYCIN PER PHARMACY 0 MG IV SCH (07:45)
[2024-05-28] MEDS ORDERED: DOCUSATE SOD 100 MG CAP PO PRN (07:45)
[2024-05-28] MEDS: HYDROcodone-ACET 10/325MG TAB PO ONE (07:45)
[2024-05-28] MEDS ORDERED: IPRATROPIUM BROM 0.5 MG/2.5ML INH SOL NEB PRN ×2 (08:00→20:15)
[2024-05-28] MEDS: NOREPINEPHRINE 8 MG/250ML KIT 250 ML IV SCH (08:15)
[2024-05-28] MEDS: ENOXAPARIN SOD 40 MG/0.4 ML SYRINGE SC SCH (08:41)
[2024-05-28] MEDS: DULoxetine HCL 30 MG CAP PO SCH (08:41)
[2024-05-28] MEDS: SPIRONOLACTONE 25 MG TAB PO ONE (08:42)
[2024-05-28] MEDS: GABAPENTIN 100 MG CAP PO ONE (08:42)
[2024-05-28] MEDS: FUROSEMIDE 40 MG TAB PO ONE (08:44)
[2024-05-28] MEDS ORDERED: DOCUSATE CALCIUM 240 MG CAP PO SCH (10:00)
[2024-05-28] MEDS: VANCOMYCIN 750mg/150ml 150 ML IV SCH (10:12)
[2024-05-28] MEDS: POTASSIUM EFFERVESENT TAB 25 MEQ PO ONE (10:23)
[2024-05-28] MEDS ORDERED: GABAPENTIN 100 MG CAP PO SCH (14:00)
--- NOTE | 2024-05-28 15:50 | DVHPN2 ---
Subjective 59-year-old female admitted with urosepsis, patient also had thigh abscess with pressure previous I and D, now likely infected again. Patient is seen by me today during rounds Pressors. Overnight we will discontinue Levophed, patient had room for IV hydration, however need fluid assessment prior to boluses. Off pressor since morning. Patient to undergo I and D with Total critical care time spent on this patient more than 30 minutes including evaluation, chart review, formulating plan and communication with team, excluding any procedures Reviewed: Care Plan, H&P, Labs, Medications, Previous Orders, Radiology Changes from previous H/P or p: No Changes Eyes: No Pain, No Vision change, No Conjunctivae inflammation, No Eyelid inflammation, No Other, No Redness ENT: No Ear pain, No Ear discharge, No Nose pain, No Nose discharge, No Nose congestion, No Mouth pain, No Mouth swelling, No Throat pain, No Throat swelling, No Other Cardiovascular: No Chest Pain, No Palpitations, No Orthopnea, No Paroxysmal Noc. Dyspnea, No Edema, No Lt Headedness, No Other Respiratory: Shortness of breath Gastrointestinal: Constipation Genitourinary: Dysuria, Other (Suprapubic abdominal pain) Musculoskeletal: No other, No neck pain, No shoulder pain, No arm pain, No back pain, No hand pain, No leg pain, No foot pain Skin: Other (Left buttock wound) Objective Vitals Vital Signs Date Time Temp Pulse Resp B/P (MAP) Pulse Ox O2 Delivery O2 Flow Rate FiO2 05/28/24 14:00 15 92 Nasal Cannula* 3 32 05/28/24 14:00 60 05/28/24 13:11 114/62 05/28/24 12:00 97.1 97.1 Intake/Output Intake and Output 05/28/24 07:00 Intake Total 2416.00 ml Output Total 1900 ml Balance 516.00 ml Intake Oral 1420 ml IV Total 996.00 ml Output Urine Total 1900 ml # Voids 2 # Bowel Movements 2 General Appearance: Alert, Cooperative, No acute distress HEENT: Atraumatic, PERRLA, EOMI, Mucous membr. moist/pink Neck: Supple Lungs: Clear to auscultation, Normal air movement Cardiovascular: Regular rate, Normal S1, Normal S2, No murmurs, Gallops Abdomen: Normal bowel sounds, Soft, No tenderness Neuro: Cranial nerves 3-12 NL Psych/Mental Status: Mental status NL Medications Current Medications Medications Dose Ordered Sig/Sumanth Route Start Time Stop Time Status Last Admin Dose Admin Magnesium Oxide 400 mg BID PO 05/25/24 10:00 05/28/24 08:41 400 MG Quetiapine Fumarate 400 mg HS PO 05/25/24 22:00 05/27/24 21:02 400 MG Temazepam 30 mg HS PO 05/25/24 22:00 05/27/24 21:02 30 MG Pantoprazole Sodium 40 mg DAILY IV 05/26/24 10:00 05/28/24 08:40 40 MG Potassium Chloride 20 meq DAILY PO 05/26/24 10:00 05/28/24 08:41 20 MEQ Meropenem 50 ml @ 17 mls/hr Q8HR IV 05/25/24 22:00 05/28/24 05:21 17 MLS/HR Ibuprofen 400 mg Q8HR PO 05/27/24 14:00 05/27/24 21:10 400 MG Acetaminophen 650 mg Q8HR PO 05/27/24 14:00 05/27/24 21:03 650 MG Morphine Sulfate 4 mg Q4HPRN PRN IV 05/27/24 16:30 05/28/24 12:41 4 MG Sodium Chloride 10 ml Q8HR IV 05/28/24 14:00 Acetaminophen 325 mg Q4HP PRN PO 05/28/24 07:45 Ondansetron HCl 4 mg Q4HP PRN IV 05/28/24 07:45 Enoxaparin Sodium 40 mg DAILY SC 05/28/24 10:00 05/28/24 08:41 40 MG Nitroglycerin 0.4 mg Q5MINP PRN SL 05/28/24 07:45 Vancomycin HCl 0 ml @ 0 mls/hr UD IV 05/28/24 07:45 Docusate Sodium 100 mg BIDPRN PRN PO 05/28/24 07:45 Albuterol 2.5 mg Q6HPRN PRN NEB 05/28/24 07:45 Cancel Duloxetine HCl 60 mg DAILY PO 05/28/24 10:00 05/28/24 08:41 60 MG Norepinephrine Bitartrate 250 ml @ 3.75 mls/hr Q24H IV 05/28/24 08:15 Furosemide 40 mg BIDD PO 05/28/24 18:00 Gabapentin 100 mg TID PO 05/28/24 14:00 Spironolactone 25 mg BIDD PO 05/28/24 18:00 Vancomycin HCl 150 ml @ 150 mls/hr Q12H IV 05/28/24 10:00 05/28/24 10:12 150 MLS/HR Laboratory Results Laboratory Tests 05/28/24 04:56 Chemistry Test 05/28/24 04:56 Calcium Level 9.9 mg/dL (8.7-10.4) Urinalysis Test 05/24/24 17:00 Urine Color Dark-yellow (Yellow) Urine Clarity Turbid (Clear) H Urine pH 5.5 (5.0-9.0) Urine Specific [place] 1.009 (1.001-1.035) Urine Protein Trace (Negative) H Urine Ketones Negative (Negative) Urine Blood 3+ /uL (Negative) H Urine Nitrite 1+ (Negative) H Urine Bilirubin Negative (Negative) Urine Urobilinogen Normal mg/dL (Negative) Urine Leukocyte Esterase 3+ /uL (Negative) Urine RBC 487 /hpf (0 - 4) Urine WBC 627 /hpf (0 - 5) Urine Squamous Epithelial Cells Few /hpf (<5) Urine Bacteria Few /hpf (None Seen) H Urine Hyaline Casts Mod /lpf (0 - 2) Urine Glucose Normal mg/dL (Normal) Microbiology Microbiology Date/Time Source Procedure Growth Status 05/25/24 09:50 Buttock Gram Stain - Final Complete 05/25/24 09:50 Wound Culture - Final Escherichia coli - ESBL Enterococcus faecalis Complete 05/24/24 17:00 Voided Urine Urine Culture - Final Escherichia coli - ESBL Complete 05/24/24 15:37 Blood Blood Culture - Preliminary NO GROWTH AFTER 72 HOURS OF INCUBATION. Resulted Assessment/Plan Assessment/Plan Septic shock, resolving Urosepsis due to ESBL UTI Acute on chronic hypoxic respiratory failure COPD group E on home oxygen Chronic systolic heart failure not in exacerbation Cellulitis with possible abscess status post prior I&D and [place] drain Smoker CAREN likely be [place], resolved Hypokalemia We will transit constipation MDD Insomnia Continues BRIDGET admission Discontinue pressors The meropenem to cover Pseudomonas and ESBL Patient not in heart failure exacerbation, would be able to receive gentle hydration Gentle hydration in case of hypotension Continue with oxygen supplementation We will hold GDM T for shock Continue home medication Surgery consult appreciated, for repeat I and D Bowel regimen Delirium precaution More than 10 minutes for smoking cessation counseling Diet heart healthy DVT prophylaxis Lovenox Condition critical Prognosis poor Plan discussed with: Patient My Orders Orders - СВЕТЛАНА FAULKNER MD Procedure Category Date Status Time Morphine Sulfate PHA 05/27/24 In Process Injection 16:30 Date of Service: May 28, 2024 Billing Provider: СВЕТЛАНА FAULKNER MD Common Visit Codes: [id number] INP/OBS CARE(HIGH), [id number] CARE 30-74 MIN Secondary Visit Codes: [id number] CHNG SMOKING >10MIN СВЕТЛАНА FAULKNER MD May 28, 2024 15:50
[2024-05-28] MEDS: GABAPENTIN 100 MG CAP PO SCH (16:49)
[2024-05-28] MEDS: SODIUM CHLOR 0.9% PF (SALINE LOCK) 10ML VIAL/SYR IV SCH (16:50)
[2024-05-28] MEDS ORDERED: FUROSEMIDE 40 MG TAB PO SCH (18:00)
[2024-05-28] MEDS ORDERED: SPIRONOLACTONE 25 MG TAB PO SCH (18:00)
[2024-05-28] MEDS: FUROSEMIDE 40 MG TAB PO SCH (18:50)
[2024-05-28] MEDS: SPIRONOLACTONE 25 MG TAB PO SCH (18:50)
[2024-05-29] VITALS (35 sets, daily range): BP systolic 80–110; BP diastolic 39–70; PULSE 57–79; RESP 10–28; TEMP 97.9–98.3; O2SAT 84–96
[2024-05-29 05:19] LABS: Basophils # (auto) 0.1 10 ^3/uL (0-0.2); Basophils % (auto) 0.8 % (0.0-2.0); Eosinophils # (auto) 0.7 10 ^3/uL (0-0.8); Eosinophils % (auto) 8.1 % (0.0-7.0); Hematocrit 42.9 % (36.0-46.0); Hemoglobin 14.4 g/dL (12.2-16.2); Lymphocytes # (auto) 3.2 10 ^3/uL (0.4-5.4); Lymphocytes % (auto) 38.3 % (10.0-50.0); Mean Corpuscular Hemoglobin 33.2 pg (28.0-32.0); Mean Corpuscular Hgb Conc. 33.6 g/dL (32.0-36.0); Mean Corpuscular Volume 98.7 fL (80.0-100.0); Monocytes # (auto) 0.7 10 ^3/uL (0-1.3); Monocytes % (auto) 8.5 % (0.0-12.0); Neutrophils # (auto) 3.7 10 ^3/uL (1.6-8.6); Neutrophils % (auto) 44.3 % (37.0-80.0); Nucleated Red Blood Cells % 0.1 %; Platelet Count (auto) 226 10^3/uL (140-450); Red Blood Cells 4.34 10^6/uL (4.0-5.20); Red Cell Distribution Width 15.3 % (11.8-14.3); White Blood Cell 8.3 10^3/uL (4.4-10.8)
[2024-05-29 05:22] LABS: Chloride 104 mmol/L (98-107); Potassium 3.6 mmol/L (3.5-5.1); Sodium 142 mmol/L (136-145)
[2024-05-29 05:23] LABS: Anion Gap 4 (5-15); Calcium 10.3 mg/dL (8.7-10.4); Carbon Dioxide 34 mmol/L (20-31)
[2024-05-29 05:28] LABS: BUN/Creatinine Ratio 13.8 (10.0-20.0); Blood Urea Nitrogen 9 mg/dL (9-23); Glucose 77 mg/dL (74-106)
[2024-05-29 05:43] LABS: Prothrombin Time 10.8 sec (9.3-11.8)
--- NOTE | 2024-05-29 08:29 | DVHPN2 ---
Subjective 59-year-old female admitted with urosepsis, patient also had thigh abscess with pressure previous I and D, now likely infected again. Patient is seen by me today during rounds Pressors. Overnight we will discontinue Levophed, patient had room for IV hydration, however need fluid assessment prior to boluses. Off pressor since morning. Patient to undergo I and D with Total critical care time spent on this patient more than 30 minutes including evaluation, chart review, formulating plan and communication with team, excluding any procedures Reviewed: Care Plan, H&P, Labs, Medications, Previous Orders, Radiology Eyes: No Pain, No Vision change, No Conjunctivae inflammation, No Eyelid inflammation, No Other, No Redness ENT: No Ear pain, No Ear discharge, No Nose pain, No Nose discharge, No Nose congestion, No Mouth pain, No Mouth swelling, No Throat pain, No Throat swelling, No Other Cardiovascular: No Chest Pain, No Palpitations, No Orthopnea, No Paroxysmal Noc. Dyspnea, No Edema, No Lt Headedness, No Other Respiratory: Shortness of breath Gastrointestinal: Constipation Genitourinary: Dysuria, Other (Suprapubic abdominal pain) Musculoskeletal: No other, No neck pain, No shoulder pain, No arm pain, No back pain, No hand pain, No leg pain, No foot pain Skin: Other (Left buttock wound) Objective Vitals Vital Signs Date Time Temp Pulse Resp B/P (MAP) Pulse Ox O2 Delivery O2 Flow Rate FiO2 05/29/24 07:39 14 94 Nasal Cannula* 3 32 05/29/24 07:38 74 05/29/24 07:07 99/70 (80) 05/29/24 06:00 98.0 Intake/Output Intake and Output 05/29/24 07:00 Intake Total 1342.5 ml Output Total 600 ml Balance 742.5 ml Intake Oral 900 ml IV Total 442.5 ml Output Urine Total 600 ml # Voids 6 # Bowel Movements 3 General Appearance: Alert, Cooperative, No acute distress HEENT: Atraumatic, PERRLA, EOMI, Mucous membr. moist/pink Neck: Supple Lungs: Clear to auscultation, Normal air movement Cardiovascular: Regular rate, Normal S1, Normal S2, No murmurs, Gallops Abdomen: Normal bowel sounds, Soft, No tenderness Neuro: Cranial nerves 3-12 NL Psych/Mental Status: Mental status NL Medications Current Medications Medications Dose Ordered Sig/Sumanth Route Start Time Stop Time Status Last Admin Dose Admin Magnesium Oxide 400 mg BID PO 05/25/24 10:00 05/28/24 21:45 400 MG Quetiapine Fumarate 400 mg HS PO 05/25/24 22:00 05/28/24 21:45 400 MG Temazepam 30 mg HS PO 05/25/24 22:00 05/28/24 21:45 30 MG Pantoprazole Sodium 40 mg DAILY IV 05/26/24 10:00 05/28/24 08:40 40 MG Potassium Chloride 20 meq DAILY PO 05/26/24 10:00 05/28/24 08:41 20 MEQ Meropenem 50 ml @ 17 mls/hr Q8HR IV 05/25/24 22:00 05/29/24 05:46 17 MLS/HR Ibuprofen 400 mg Q8HR PO 05/27/24 14:00 05/27/24 21:10 400 MG Acetaminophen 650 mg Q8HR PO 05/27/24 14:00 05/27/24 21:03 650 MG Morphine Sulfate 4 mg Q4HPRN PRN IV 05/27/24 16:30 05/29/24 04:44 4 MG Sodium Chloride 10 ml Q8HR IV 05/28/24 14:00 05/29/24 05:46 10 ML Acetaminophen 325 mg Q4HP PRN PO 05/28/24 07:45 Ondansetron HCl 4 mg Q4HP PRN IV 05/28/24 07:45 Enoxaparin Sodium 40 mg DAILY SC 05/28/24 10:00 05/28/24 08:41 40 MG Nitroglycerin 0.4 mg Q5MINP PRN SL 05/28/24 07:45 Vancomycin HCl 0 ml @ 0 mls/hr UD IV 05/28/24 07:45 Docusate Sodium 100 mg BIDPRN PRN PO 05/28/24 07:45 Albuterol 2.5 mg Q6HPRN PRN NEB 05/28/24 07:45 Cancel Duloxetine HCl 60 mg DAILY PO 05/28/24 10:00 05/28/24 08:41 60 MG Furosemide 40 mg BIDD PO 05/28/24 18:00 05/28/24 18:50 40 MG Gabapentin 100 mg TID PO 05/28/24 14:00 05/28/24 21:45 100 MG Spironolactone 25 mg BIDD PO 05/28/24 18:00 05/28/24 18:50 25 MG Vancomycin HCl 150 ml @ 150 mls/hr Q12H IV 05/28/24 10:00 05/28/24 21:44 150 MLS/HR Albuterol 2.5 mg Q6HPRN PRN NEB 05/28/24 20:15 Ipratropium [place] 0.5 mg Q6HPRN PRN NEB 05/28/24 20:15 Laboratory Results Laboratory Tests 05/29/24 04:40 Chemistry Test 05/29/24 04:40 Calcium Level 10.3 mg/dL (8.7-10.4) Coagulation Test 05/29/24 04:40 Prothrombin Time 10.8 sec (9.3-11.8) Prothrombin Time INR 1.0 (0.9-1.15) Urinalysis Test 05/24/24 17:00 Urine Color Dark-yellow (Yellow) Urine Clarity Turbid (Clear) H Urine pH 5.5 (5.0-9.0) Urine Specific [place] 1.009 (1.001-1.035) Urine Protein Trace (Negative) H Urine Ketones Negative (Negative) Urine Blood 3+ /uL (Negative) H Urine Nitrite 1+ (Negative) H Urine Bilirubin Negative (Negative) Urine Urobilinogen Normal mg/dL (Negative) Urine Leukocyte Esterase 3+ /uL (Negative) Urine RBC 487 /hpf (0 - 4) Urine WBC 627 /hpf (0 - 5) Urine Squamous Epithelial Cells Few /hpf (<5) Urine Bacteria Few /hpf (None Seen) H Urine Hyaline Casts Mod /lpf (0 - 2) Urine Glucose Normal mg/dL (Normal) Microbiology Microbiology Date/Time Source Procedure Growth Status 05/25/24 09:50 Buttock Gram Stain - Final Complete 05/25/24 09:50 Wound Culture - Final Escherichia coli - ESBL Enterococcus faecalis Complete 05/24/24 17:00 Voided Urine Urine Culture - Final Escherichia coli - ESBL Complete 05/24/24 15:37 Blood Blood Culture - Preliminary NO GROWTH AFTER 72 HOURS OF INCUBATION. Resulted Assessment/Plan Assessment/Plan Septic shock, resolving Urosepsis due to ESBL UTI Acute on chronic hypoxic respiratory failure COPD group E on home oxygen Pneumonia, possible aspiration Chronic systolic heart failure not in exacerbation Cellulitis with possible abscess status post prior I&D and [place] drain Smoker CAREN likely be [place], resolved Hypokalemia We will transit constipation MDD Insomnia Bladder mass Continues BRIDGET admission Discontinue pressors The meropenem to cover Pseudomonas and ESBL Patient not in heart failure exacerbation, would be able to receive gentle hydration Gentle hydration in case of hypotension Continue with oxygen supplementation We will hold GDM T for shock Continue home medication Surgery consult appreciated, for repeat I and D Bowel regimen Delirium precaution Discharge with urology follow up for bladder wall irregularity workup likely cystoscopy Diet heart healthy DVT prophylaxis Lovenox Condition critical Prognosis poor Plan discussed with: Patient СВЕТЛАНА FAULKNER MD May 29, 2024 08:29
[2024-05-29] MEDS ORDERED: PROPOFOL 10 MG/ML 20 ML IV ONE (10:45)
[2024-05-29] MEDS ORDERED: LIDOCAINE 2% (LOCAL ANESTH.) PF 5ml SDV ONE (10:45)
[2024-05-29] MEDS ORDERED: GLYCOPYRROLATE 0.2 MG/ML 1ML VIAL ONE (10:45)
[2024-05-29] MEDS ORDERED: ONDANSETRON HCL 4 MG/2 ML VIAL ONE (10:45)
[2024-05-29] MEDS ORDERED: KETOROLAC TROMETH 30 MG/ML 1ML VIAL ONE (10:45)
[2024-05-29] MEDS ORDERED: MIDAZOLAM HCL 2MG/2ML 2ml VIAL (1mg/ml) ONE (10:45)
[2024-05-29] MEDS ORDERED: DexAMETHasone SOD PHOS 10MG/1ML VIAL INJ ONE (10:45)
[2024-05-29] MEDS ORDERED: HYDROmorphone HCL 2 MG/ML VL/or syr ONE (10:45)
[2024-05-29] MEDS ORDERED: ROCURONIUM 10MG/ML 10ML VIAL IV ONE (10:45)
[2024-05-29] MEDS ORDERED: ePHEDrine SULFATE 50 MG/ML AMP ONE (10:45)
[2024-05-29] MEDS ORDERED: fentaNYL CITRATE 100 MCG/2 ML VL ONE (10:45)
[2024-05-29] MEDS: LIDOCAINE W/ EPINEPHRINE 1% 20ML VIAL ONE (11:40)
[2024-05-29] MEDS: BUPIVACAINE 0.25% INJ 50ML VIAL ONE (11:40)
[2024-05-29] MEDS ORDERED: HYDROmorphone HCL 2 MG/ML VL/or syr IV PRN (12:00)
[2024-05-29] MEDS: ONDANSETRON HCL 4 MG/2 ML VIAL IV ONE (12:00)
[2024-05-29] MEDS ORDERED: ceFAZolin 1GM VL ONE (12:33)
[2024-05-29] MEDS: MORPHINE SULFATE 4 MG/ML SYR/VIAL IV ONE (12:40)
[2024-05-29] MEDS ORDERED: KETAMINE 50mg/ML 10ml Vial 10 ML ONE (12:45)
--- NOTE | 2024-05-29 13:26 | DVHOP ---
DATE OF SURGERY: 05/29/2024 PREOPERATIVE DIAGNOSIS: Wound, left hip. POSTOPERATIVE DIAGNOSIS: Wound, left hip. SURGEON: Renan Bass MD VINYL CUTTER: Nicholas Bhatia. ANESTHESIA: General endotracheal sedation. DESCRIPTION OF PROCEDURE: Under adequate anesthesia, with the patient in the left lateral position ____ facing upward, down axilla protected with an axillary roll, the patient's skin prepped and draped. The wound was debrided of necrotic tissue and probed. There was tunneling of the wound superiorly and medially. This was scraped with a curette. The tissues debrided. Subsequently, the wound was lavaged with the pulse lavage of 1 liter of saline with antibiotic solution. Following which, hemostasis was meticulously accomplished and the wound was packed loosely with iodoform gauze. The patient remained stable throughout the procedure, left the operating room following an accurate needle and sponge count. was thoroughly informed. Renan Bass MD PF TID: [id number] RECEIPT: [id number]
--- NOTE | 2024-05-29 15:56 | DVHPN2 ---
Subjective 59-year-old female admitted with urosepsis, patient also had thigh abscess with pressure previous I and D, now likely infected again. Patient is seen by me today during rounds Off pressors for the last 24 hours. Patient is stable to transfer to telemetry after procedure. We will receive procedure today with surgery. Reviewed: Care Plan, H&P, Labs, Medications, Previous Orders, Radiology Changes from previous H/P or p: No Changes Eyes: No Pain, No Vision change, No Conjunctivae inflammation, No Eyelid inflammation, No Other, No Redness ENT: No Ear pain, No Ear discharge, No Nose pain, No Nose discharge, No Nose congestion, No Mouth pain, No Mouth swelling, No Throat pain, No Throat swelling, No Other Cardiovascular: No Chest Pain, No Palpitations, No Orthopnea, No Paroxysmal Noc. Dyspnea, No Edema, No Lt Headedness, No Other Respiratory: Shortness of breath Gastrointestinal: Constipation Genitourinary: Dysuria, Other (Suprapubic abdominal pain) Musculoskeletal: No other, No neck pain, No shoulder pain, No arm pain, No back pain, No hand pain, No leg pain, No foot pain Skin: Other (Left buttock wound) Objective Vitals Vital Signs Date Time Temp Pulse Resp B/P (MAP) Pulse Ox O2 Delivery O2 Flow Rate FiO2 05/29/24 14:15 71 11 109/60 05/29/24 14:00 96 Nasal Cannula* 3 32 05/29/24 11:45 98.0 98.0 Intake/Output Intake and Output 05/29/24 07:00 Intake Total 1342.5 ml Output Total 600 ml Balance 742.5 ml Intake Oral 900 ml IV Total 442.5 ml Output Urine Total 600 ml # Voids 6 # Bowel Movements 3 General Appearance: Alert, Cooperative, No acute distress HEENT: Atraumatic, PERRLA, EOMI, Mucous membr. moist/pink Neck: Supple Lungs: Clear to auscultation, Normal air movement Cardiovascular: Regular rate, Normal S1, Normal S2, No murmurs, Gallops Abdomen: Normal bowel sounds, Soft, No tenderness Neuro: Cranial nerves 3-12 NL Psych/Mental Status: Mental status NL Medications Current Medications Medications Dose Ordered Sig/Sumanth Route Start Time Stop Time Status Last Admin Dose Admin Magnesium Oxide 400 mg BID PO 05/25/24 10:00 05/29/24 13:50 400 MG Quetiapine Fumarate 400 mg HS PO 05/25/24 22:00 05/28/24 21:45 400 MG Temazepam 30 mg HS PO 05/25/24 22:00 05/28/24 21:45 30 MG Pantoprazole Sodium 40 mg DAILY IV 05/26/24 10:00 05/29/24 09:53 40 MG Potassium Chloride 20 meq DAILY PO 05/26/24 10:00 05/29/24 13:50 20 MEQ Meropenem 50 ml @ 17 mls/hr Q8HR IV 05/25/24 22:00 05/29/24 14:01 17 MLS/HR Ibuprofen 400 mg Q8HR PO 05/27/24 14:00 05/27/24 21:10 400 MG Acetaminophen 650 mg Q8HR PO 05/27/24 14:00 05/27/24 21:03 650 MG Morphine Sulfate 4 mg Q4HPRN PRN IV 05/27/24 16:30 05/29/24 14:15 4 MG Sodium Chloride 10 ml Q8HR IV 05/28/24 14:00 05/29/24 14:05 10 ML Acetaminophen 325 mg Q4HP PRN PO 05/28/24 07:45 Ondansetron HCl 4 mg Q4HP PRN IV 05/28/24 07:45 Enoxaparin Sodium 40 mg DAILY SC 05/28/24 10:00 05/28/24 08:41 40 MG Nitroglycerin 0.4 mg Q5MINP PRN SL 05/28/24 07:45 Vancomycin HCl 0 ml @ 0 mls/hr UD IV 05/28/24 07:45 Docusate Sodium 100 mg BIDPRN PRN PO 05/28/24 07:45 Albuterol 2.5 mg Q6HPRN PRN NEB 05/28/24 07:45 Cancel Duloxetine HCl 60 mg DAILY PO 05/28/24 10:00 05/29/24 13:50 60 MG Furosemide 40 mg BIDD PO 05/28/24 18:00 05/28/24 18:50 40 MG Gabapentin 100 mg TID PO 05/28/24 14:00 05/29/24 13:51 100 MG Spironolactone 25 mg BIDD PO 05/28/24 18:00 05/28/24 18:50 25 MG Vancomycin HCl 150 ml @ 150 mls/hr Q12H IV 05/28/24 10:00 05/29/24 09:53 150 MLS/HR Albuterol 2.5 mg Q6HPRN PRN NEB 05/28/24 20:15 Ipratropium [place] 0.5 mg Q6HPRN PRN NEB 05/28/24 20:15 Laboratory Results Laboratory Tests 05/29/24 04:40 Chemistry Test 05/29/24 04:40 Calcium Level 10.3 mg/dL (8.7-10.4) Coagulation Test 05/29/24 04:40 Prothrombin Time 10.8 sec (9.3-11.8) Prothrombin Time INR 1.0 (0.9-1.15) Urinalysis Test 05/24/24 17:00 Urine Color Dark-yellow (Yellow) Urine Clarity Turbid (Clear) H Urine pH 5.5 (5.0-9.0) Urine Specific [place] 1.009 (1.001-1.035) Urine Protein Trace (Negative) H Urine Ketones Negative (Negative) Urine Blood 3+ /uL (Negative) H Urine Nitrite 1+ (Negative) H Urine Bilirubin Negative (Negative) Urine Urobilinogen Normal mg/dL (Negative) Urine Leukocyte Esterase 3+ /uL (Negative) Urine RBC 487 /hpf (0 - 4) Urine WBC 627 /hpf (0 - 5) Urine Squamous Epithelial Cells Few /hpf (<5) Urine Bacteria Few /hpf (None Seen) H Urine Hyaline Casts Mod /lpf (0 - 2) Urine Glucose Normal mg/dL (Normal) Microbiology Microbiology Date/Time Source Procedure Growth Status 05/25/24 09:50 Buttock Gram Stain - Final Complete 05/25/24 09:50 Wound Culture - Final Escherichia coli - ESBL Enterococcus faecalis Complete 05/24/24 17:00 Voided Urine Urine Culture - Final Escherichia coli - ESBL Complete 05/24/24 15:37 Blood Blood Culture - Final NO GROWTH AFTER 5 DAYS OF INCUBATION. Complete Labs and/or images reviewed: Labs reviewed by me, Image(s) reviewed by me Assessment/Plan Assessment/Plan Septic shock, resolving Urosepsis due to ESBL UTI Acute on chronic hypoxic respiratory failure COPD group E on home oxygen Pneumonia, possible aspiration Chronic systolic heart failure not in exacerbation Cellulitis with possible abscess status post prior I&D and [place] drain Smoker CAREN likely be [place], resolved Hypokalemia We will transit constipation MDD Insomnia Bladder mass Transferred to telemetry floors Discontinue pressors The meropenem to cover Pseudomonas and ESBL Patient not in heart failure exacerbation, would be able to receive gentle hydration Gentle hydration in case of hypotension Continue with oxygen supplementation We will hold GDM T for shock Continue home medication Surgery consult appreciated, for repeat I and D Bowel regimen Delirium precaution Discharge with urology follow up for bladder wall irregularity workup likely cystoscopy Status post debridement and irrigation Diet heart healthy DVT prophylaxis Lovenox Condition critical Prognosis poor Plan discussed with: Patient Date of Service: May 29, 2024 Billing Provider: СВЕТЛАНА FAULKNER MD Common Visit Codes: [id number] INP/OBS CARE(HIGH) СВЕТЛАНА FAULKNER MD May 29, 2024 15:56
[2024-05-30] VITALS (22 sets, daily range): BP systolic 86–113; BP diastolic 50–68; PULSE 58–88; RESP 9–29; TEMP 97.3–98.2; O2SAT 91–96
[2024-05-30 04:54] LABS: Basophils # (auto) 0.1 10 ^3/uL (0-0.2); Basophils % (auto) 0.6 % (0.0-2.0); Eosinophils # (auto) 0.5 10 ^3/uL (0-0.8); Eosinophils % (auto) 5.6 % (0.0-7.0); Hematocrit 42.6 % (36.0-46.0); Hemoglobin 13.9 g/dL (12.2-16.2); Lymphocytes # (auto) 2.6 10 ^3/uL (0.4-5.4); Lymphocytes % (auto) 29.7 % (10.0-50.0); Mean Corpuscular Hemoglobin 32.3 pg (28.0-32.0); Mean Corpuscular Hgb Conc. 32.5 g/dL (32.0-36.0); Mean Corpuscular Volume 99.5 fL (80.0-100.0); Monocytes # (auto) 0.8 10 ^3/uL (0-1.3); Monocytes % (auto) 8.7 % (0.0-12.0); Neutrophils # (auto) 4.9 10 ^3/uL (1.6-8.6); Neutrophils % (auto) 55.4 % (37.0-80.0); Platelet Count (auto) 211 10^3/uL (140-450); Red Blood Cells 4.29 10^6/uL (4.0-5.20); Red Cell Distribution Width 14.9 % (11.8-14.3); White Blood Cell 8.8 10^3/uL (4.4-10.8)
[2024-05-30 05:01] LABS: Chloride 103 mmol/L (98-107); Potassium 3.5 mmol/L (3.5-5.1); Sodium 142 mmol/L (136-145)
[2024-05-30 05:02] LABS: Anion Gap 3 (5-15); Carbon Dioxide 36 mmol/L (20-31)
[2024-05-30 05:07] LABS: Blood Urea Nitrogen 9 mg/dL (9-23); Glucose 74 mg/dL (74-106)
--- NOTE | 2024-05-30 07:39 | DVHPNRES ---
Progress Note Date Seen: May 30, 2024 Resident Creating Document: MUNIRA KEYS RESIDENT Medical Necessity Reason Pt with a Central, PICC or Fol: No Objective vital signs Vital Sign Date Time Temp Pulse Resp B/P (MAP) Pulse Ox O2 Delivery O2 Flow Rate FiO2 05/30/24 06:00 13 94 Nasal Cannula* 3 32 05/30/24 06:00 60 05/30/24 05:43 101/35 05/30/24 04:00 98.0 98.0 Total Intake and Output 05/29/24 05/29/24 05/30/24 15:00 23:00 07:00 Intake Total 201 ml 834 ml 500 ml Output Total 500 ml 1000 ml Balance 201 ml 334 ml -500 ml medications Current Medications Medications Dose Ordered Sig/Sumanth Route Start Time Stop Time Status Last Admin Dose Admin Magnesium Oxide 400 mg BID PO 05/25/24 10:00 05/29/24 21:43 400 MG Quetiapine Fumarate 400 mg HS PO 05/25/24 22:00 05/29/24 21:43 400 MG Temazepam 30 mg HS PO 05/25/24 22:00 05/29/24 21:42 30 MG Pantoprazole Sodium 40 mg DAILY IV 05/26/24 10:00 05/29/24 09:53 40 MG Potassium Chloride 20 meq DAILY PO 05/26/24 10:00 05/29/24 13:50 20 MEQ Ibuprofen 400 mg Q8HR PO 05/27/24 14:00 05/29/24 21:56 400 MG Acetaminophen 650 mg Q8HR PO 05/27/24 14:00 05/29/24 21:43 650 MG Morphine Sulfate 4 mg Q4HPRN PRN IV 05/27/24 16:30 05/30/24 05:13 4 MG Sodium Chloride 10 ml Q8HR IV 05/28/24 14:00 05/30/24 06:27 10 ML Acetaminophen 325 mg Q4HP PRN PO 05/28/24 07:45 Ondansetron HCl 4 mg Q4HP PRN IV 05/28/24 07:45 Enoxaparin Sodium 40 mg DAILY SC 05/28/24 10:00 05/28/24 08:41 40 MG Nitroglycerin 0.4 mg Q5MINP PRN SL 05/28/24 07:45 Docusate Sodium 100 mg BIDPRN PRN PO 05/28/24 07:45 Albuterol 2.5 mg Q6HPRN PRN NEB 05/28/24 07:45 Cancel Duloxetine HCl 60 mg DAILY PO 05/28/24 10:00 05/29/24 13:50 60 MG Furosemide 40 mg BIDD PO 05/28/24 18:00 05/30/24 05:12 40 MG Gabapentin 100 mg TID PO 05/28/24 14:00 05/30/24 05:12 100 MG Spironolactone 25 mg BIDD PO 05/28/24 18:00 05/30/24 05:12 25 MG Albuterol 2.5 mg Q6HPRN PRN NEB 05/28/24 20:15 Ipratropium [place] 0.5 mg Q6HPRN PRN NEB 05/28/24 20:15 Daptomycin / Sodium Chloride 50 ml @ 100 mls/hr DAILY IV 05/30/24 10:00 UNV Ertapenem 1 gm/ Sodium Chloride 50 ml @ 100 mls/hr DAILY IV 05/30/24 10:00 laboratory and microbiology Laboratory Tests 05/30/24 04:28 Test 05/30/24 04:28 Range/Units Serum Glucose 74 74-106 mg/dL Microbiology Date/Time Source Procedure Growth Status 05/25/24 09:50 Buttock Gram Stain - Final Complete 05/25/24 09:50 Wound Culture - Final Escherichia coli - ESBL Enterococcus faecalis Complete 05/24/24 17:00 Voided Urine Urine Culture - Final Escherichia coli - ESBL Complete 05/24/24 15:37 Blood Blood Culture - Final NO GROWTH AFTER 5 DAYS OF INCUBATION. Complete Labs and/or images reviewed: Labs reviewed by me, Image(s) reviewed by me Problem List/Assessment/Plan Problem List/Assessment/Plan Hospital course: A 59-year-old female with a history of hypertension, hyperlipidemia, HFpEF congestive heart failure, COPD, depression, coronary artery disease , cholecystectomy, , tonsillectomy, prior debrided left buttock wound eschar developed after the spider bite presented to the ED with chills, dysuria, nausea, and vomiting for the past week, along with burning pain during urination, suprapubic abdominal pain, and a chronic nonhealing wound with cellulitis and eschar on the left buttock from a spider bite, which has not improved despite antibiotics and wound care, leading to sepsis and debridement; she denies chest pain, palpitations, dizziness, and diarrhea. At admission noted Left buttock tenderness, wound with eschar, redness, swollen, tender, warmth. Patient has been found with ESBL in both urine and wound cultures. Status post IV antibiotics waiting for surgical debridement and wound VAC placement. # septic shock: likely due to UTI And/or left buttock wound cellulitis; giving IVF, ordered blood, urine, and wound cultures both growing ESBL. Cautious fluid replacement due to underlying heart failure. on low-dose vasopressor peripherally 2-4 Levophed as needed. Check bedside IVC likely euvolemic 500 cc of bolus, we will try to avoid as much as possible of vasopressor support. # Acute complicated UTI: ESBL, on meropenem, we will not downgrade to amlodipine them as patient might have Pseudomonas in the wound # Acute on chronic hypoxic respiratory failure: Likely due to mild CHF exacerbation with BNP in 120. Along with COPD continuously monitor saturation, currently on 3 L O2 NC. Baseline around 2 L. CXR grossly unremarkable. # Chronic nonhealing left buttock wound cellulitis: Brown recluse spider bite few months ago. Complicated history, persistent wound despite surgical and wound management. cefepime and vancomycin, consulted surgeon for further evaluation, ordered wound culture and wound consult. Previous nasal MRSA negative. In 2018 grew Serratia marcescens. ESBL. NPO after midnight. Waiting for surgical intervention on 05/29/2024. Cautious pain management. To continue. # chronic cigarette smokin pack-year smoking history all the patient previously mentioned quitting but she confessed of having active smoking. Bedside counseling done for 11 minutes for smoking cessation # COPD with chronic hypoxic respiratory failure: Oxygen dependent most of the times at home with exertion and sleeping 3 L nasal cannula baseline, history of COPD likely due to heavy smoking history. Continues to smoke. # CAREN likely vasomotor nephropathy, resolved. : Likely due to sepsis, prerenal type, on IV fluid, avoid nephrotoxic follow daily BMP. 1.51>> 1.3>>0.7, gradually improving. Monitor input output # Mild hypokalemia: on oral potassium supplement. # chronic Constipation: on Colace, if needed we will add more stool softeners, BM + # complex major depressive disorder: with no homicidal or suicidal ideation, continue on duloxetine, Seroquel # chronic Insomnia: On temazepam/Restoril 30 mg at night and zolpidem as needed 10 mg, # DVT prophylaxis: Lovenox for now. Close monitoring of CBC daily. # GI prophylaxis: IV pantoprazole daily # delirium precaution: Continue reorientation, sleep hygiene, family present at bedside, day time open window and nighttime avoidance of room light as needed melatonin. TV and music as needed Diet: Continue diet now, NPO after midnight for surgical procedure Discussed with Dr. Malik Code status: Full code. Care discussion needed 39 minutes of discussion. Barriers to discharge: Medical workup and management are ongoing. Earliest discharge planning at recovery. and daughter visiting lives with family at home. If blood pressure remains stable we will try to downgrade to telemetry tomorrow. Dietary Evaluation Review Comments: Recommend 2g Na diet and susan BID for wound healing Expected Outcomes/Goals: Healed wound, avoid heart conditions Laboratory Results Laboratory Tests 05/30/24 04:28 Chemistry Test 05/30/24 04:28 Calcium Level 10.0 mg/dL (8.7-10.4) Urinalysis Test 05/24/24 17:00 Urine Color Dark-yellow (Yellow) Urine Clarity Turbid (Clear) H Urine pH 5.5 (5.0-9.0) Urine Specific [place] 1.009 (1.001-1.035) Urine Protein Trace (Negative) H Urine Ketones Negative (Negative) Urine Blood 3+ /uL (Negative) H Urine Nitrite 1+ (Negative) H Urine Bilirubin Negative (Negative) Urine Urobilinogen Normal mg/dL (Negative) Urine Leukocyte Esterase 3+ /uL (Negative) Urine RBC 487 /hpf (0 - 4) Urine WBC 627 /hpf (0 - 5) Urine Squamous Epithelial Cells Few /hpf (<5) Urine Bacteria Few /hpf (None Seen) H Urine Hyaline Casts Mod /lpf (0 - 2) Urine Glucose Normal mg/dL (Normal) Microbiology Microbiology Date/Time Source Procedure Growth Status 05/25/24 09:50 Buttock Gram Stain - Final Complete 05/25/24 09:50 Wound Culture - Final Escherichia coli - ESBL Enterococcus faecalis Complete 05/24/24 17:00 Voided Urine Urine Culture - Final Escherichia coli - ESBL Complete 05/24/24 15:37 Blood Blood Culture - Final NO GROWTH AFTER 5 DAYS OF INCUBATION. Complete MUNIRA KEYS RESIDENT May 30, 2024 07:39
[2024-05-30] MEDS: PANTOPRAZOLE 40 MG TAB PO SCH (08:47)
[2024-05-30] MEDS: ACETAMINOPHEN 325 MG TAB PO PRN (09:01)
[2024-05-30] MEDS: MORPHINE SULFATE 4 MG/ML SYR/VIAL IV ONE (09:32)
[2024-05-30] MEDS ORDERED: DAPTOmycin 500 MG in SODIUM CHL 0.9% 50 ML IV SCH (10:00)
[2024-05-30 10:34] LABS: Partial Thromboplastin Time 32.3 SEC (24.5-34.5); Prothrombin Time 10.6 sec (9.3-11.8)
[2024-05-30] MEDS ORDERED: ALBU108A5 IN (11:14)
[2024-05-30] MEDS: ERTAPENEM SOD INJ 1 GM in SODIUM CHL 0.9% 50 ML IV SCH (12:01)
[2024-05-30] MEDS: DAPTOmycin 500 MG in SODIUM CHL 0.9% 50 ML IV SCH (13:19)
[2024-05-30 13:35] LABS: Base Excess 10.3 mmol/L (-2.0-3.0)
--- NOTE | 2024-05-30 14:39 | DVHPN2 ---
Progress Note Date Seen: May 30, 2024 Medical Necessity Reason Pt with a Central, PICC or Fol: No Objective vital signs Vital Sign Date Time Temp Pulse Resp B/P (MAP) Pulse Ox O2 Delivery O2 Flow Rate FiO2 05/30/24 12:00 10 92 Nasal Cannula* 3 32 05/30/24 12:00 98.2 70 112/61 (78) 98.2 Total Intake and Output 05/29/24 05/29/24 05/30/24 15:00 23:00 07:00 Intake Total 201 ml 834 ml 500 ml Output Total 500 ml 1000 ml Balance 201 ml 334 ml -500 ml medications Current Medications Medications Dose Ordered Sig/Sumanth Route Start Time Stop Time Status Last Admin Dose Admin Magnesium Oxide 400 mg BID PO 05/25/24 10:00 05/30/24 08:48 400 MG Quetiapine Fumarate 400 mg HS PO 05/25/24 22:00 05/29/24 21:43 400 MG Temazepam 30 mg HS PO 05/25/24 22:00 05/29/24 21:42 30 MG Potassium Chloride 20 meq DAILY PO 05/26/24 10:00 05/30/24 08:48 20 MEQ Ibuprofen 400 mg Q8HR PO 05/27/24 14:00 05/30/24 14:18 400 MG Acetaminophen 650 mg Q8HR PO 05/27/24 14:00 05/30/24 14:17 650 MG Sodium Chloride 10 ml Q8HR IV 05/28/24 14:00 05/30/24 14:16 10 ML Ondansetron HCl 4 mg Q4HP PRN IV 05/28/24 07:45 Enoxaparin Sodium 40 mg DAILY SC 05/28/24 10:00 05/30/24 08:50 40 MG Nitroglycerin 0.4 mg Q5MINP PRN SL 05/28/24 07:45 Docusate Sodium 100 mg BIDPRN PRN PO 05/28/24 07:45 Albuterol 2.5 mg Q6HPRN PRN NEB 05/28/24 07:45 Cancel Duloxetine HCl 60 mg DAILY PO 05/28/24 10:00 05/30/24 08:49 60 MG Gabapentin 100 mg TID PO 05/28/24 14:00 05/30/24 14:17 100 MG Albuterol 2.5 mg Q6HPRN PRN NEB 05/28/24 20:15 Ipratropium [place] 0.5 mg Q6HPRN PRN NEB 05/28/24 20:15 Ertapenem 1 gm/ Sodium Chloride 50 ml @ 100 mls/hr DAILY IV 05/30/24 10:00 05/30/24 12:01 100 MLS/HR Pantoprazole Sodium 40 mg DAILY@0600 PO 05/30/24 07:45 05/30/24 08:47 40 MG Daptomycin 500 mg/ Sodium Chloride 50 ml @ 100 mls/hr DAILY@1100 IV 05/30/24 11:00 05/30/24 13:19 100 MLS/HR Furosemide 40 mg DAILY PO 05/31/24 10:00 laboratory and microbiology Laboratory Tests 05/30/24 04:28 Test 05/30/24 04:28 Range/Units Serum Glucose 74 74-106 mg/dL Problem List/Assessment/Plan Problem List/Assessment/Plan 05/30/24 "LOTS OF PAIN" WILL ADD TORADOL' WILL NEED WOUND VAC Plan discussed with: Patient Dietary Evaluation Review Comments: Recommend 2g Na diet and susan BID for wound healing Expected Outcomes/Goals: Healed wound, avoid heart conditions KARTIK NEAL MD May 30, 2024 14:39
[2024-05-30] MEDS ORDERED: KETOROLAC TROMETH 30 MG/ML 1ML VIAL IV PRN ×2 (14:45→15:15)
[2024-05-30] MEDS: MORPHINE SULFATE 4 MG/ML SYR/VIAL IV PRN (15:39)
--- NOTE | 2024-05-30 19:57 | DVHPNRES ---
Progress Note Date Seen: May 30, 2024 Resident Creating Document: MUNIRA KEYS RESIDENT Medical Necessity Reason Pt with a Central, PICC or Fol: No Subjective Review of Systems Saw the patient at bedside, patient looks pale admission day. Still on 3 L of nasal cannula oxygen at baseline. Complains of pain, discussion regarding standing order for pain management along with p.r.n. medication discussed in details. Patient reports: No new complaints Changes from previous H/P or p: No Changes Review of Systems: HEENT:Normal (Baseline 3 L nasal cannula), CVS:Normal, RESPIRATORY:Normal (Baseline 3 L nasal cannula), GI:Abnormal (Constipation), :Normal, MSK:Abnormal (Surgical wound left buttock seen, no discharge, foul smell noted), NEURO:Normal Objective vital signs Vital Sign Date Time Temp Pulse Resp B/P (MAP) Pulse Ox O2 Delivery O2 Flow Rate FiO2 05/30/24 18:39 94 Nasal Cannula* 3 32 05/30/24 18:00 65 05/30/24 18:00 11 108/59 (75) 05/30/24 16:00 97.3 97.3 Total Intake and Output 05/29/24 05/29/24 05/30/24 15:00 23:00 07:00 Intake Total 201 ml 834 ml 500 ml Output Total 500 ml 1000 ml Balance 201 ml 334 ml -500 ml medications Current Medications Medications Dose Ordered Sig/Sumanth Route Start Time Stop Time Status Last Admin Dose Admin Magnesium Oxide 400 mg BID PO 05/25/24 10:00 05/30/24 08:48 400 MG Quetiapine Fumarate 400 mg HS PO 05/25/24 22:00 05/29/24 21:43 400 MG Temazepam 30 mg HS PO 05/25/24 22:00 05/29/24 21:42 30 MG Potassium Chloride 20 meq DAILY PO 05/26/24 10:00 05/30/24 08:48 20 MEQ Ibuprofen 400 mg Q8HR PO 05/27/24 14:00 05/30/24 14:18 400 MG Acetaminophen 650 mg Q8HR PO 05/27/24 14:00 05/30/24 14:17 650 MG Sodium Chloride 10 ml Q8HR IV 05/28/24 14:00 05/30/24 14:16 10 ML Ondansetron HCl 4 mg Q4HP PRN IV 05/28/24 07:45 Enoxaparin Sodium 40 mg DAILY SC 05/28/24 10:00 05/30/24 08:50 40 MG Nitroglycerin 0.4 mg Q5MINP PRN SL 05/28/24 07:45 Docusate Sodium 100 mg BIDPRN PRN PO 05/28/24 07:45 Albuterol 2.5 mg Q6HPRN PRN NEB 05/28/24 07:45 Cancel Duloxetine HCl 60 mg DAILY PO 05/28/24 10:00 05/30/24 08:49 60 MG Gabapentin 100 mg TID PO 05/28/24 14:00 05/30/24 14:17 100 MG Albuterol 2.5 mg Q6HPRN PRN NEB 05/28/24 20:15 Ipratropium [place] 0.5 mg Q6HPRN PRN NEB 05/28/24 20:15 Ertapenem 1 gm/ Sodium Chloride 50 ml @ 100 mls/hr DAILY IV 05/30/24 10:00 05/30/24 12:01 100 MLS/HR Pantoprazole Sodium 40 mg DAILY@0600 PO 05/30/24 07:45 05/30/24 08:47 40 MG Daptomycin 500 mg/ Sodium Chloride 50 ml @ 100 mls/hr DAILY@1100 IV 05/30/24 11:00 05/30/24 13:19 100 MLS/HR Furosemide 40 mg DAILY PO 05/31/24 10:00 Morphine Sulfate 4 mg Q6HPRN PRN IV 05/30/24 15:15 05/30/24 15:39 4 MG Sennosides 8.6 mg HS PO 05/30/24 22:00 UNV Examination: GENERAL:Normal, HEENT:Normal, NECK:Normal, LUNGS:Abnormal (Basal rales, signs of atelectasis, 3 L of nasal cannula oxygen), CVS:Normal, ABDOMEN:Normal (Mildly distended, BS positive, status positive, no tenderness), MSK:Abnormal (Left buttock wound visualized), SKIN:Normal, NEURO:Normal laboratory and microbiology Laboratory Tests 05/30/24 04:28 Test 05/30/24 04:28 Range/Units Serum Glucose 74 74-106 mg/dL Microbiology Date/Time Source Procedure Growth Status 05/25/24 09:50 Buttock Gram Stain - Final Complete 05/25/24 09:50 Wound Culture - Final Escherichia coli - ESBL Enterococcus faecalis Complete 05/24/24 17:00 Voided Urine Urine Culture - Final Escherichia coli - ESBL Complete 05/24/24 15:37 Blood Blood Culture - Final NO GROWTH AFTER 5 DAYS OF INCUBATION. Complete Labs and/or images reviewed: Labs reviewed by me, Image(s) reviewed by me Problem List/Assessment/Plan Problem List/Assessment/Plan Hospital course: A 59-year-old female with a history of hypertension, hyperlipidemia, HFpEF congestive heart failure, COPD, depression, coronary artery disease , cholecystectomy, , tonsillectomy, prior debrided left buttock wound eschar developed after the spider bite presented to the ED with chills, dysuria, nausea, and vomiting for the past week, along with burning pain during urination, suprapubic abdominal pain, and a chronic nonhealing wound with cellulitis and eschar on the left buttock from a spider bite, which has not improved despite antibiotics and wound care, leading to sepsis and debridement; she denies chest pain, palpitations, dizziness, and diarrhea. At admission noted Left buttock tenderness, wound with eschar, redness, swollen, tender, warmth. Patient has been found with ESBL in both urine and wound cultures. also patient is growing Enterococcus faecalis in own. Status post IV antibiotics, surgical debridement and pending wound VAC placement. # septic shock , improved: off of Vasopressors. Blood pressure stable on antibiotics and fluid support. Looks euvolemic. Goal to keep the map over 65. # Acute complicated UTI: ESBL, Metoprolol changed to ertapenem ( Day 12/04 ) a ppropriately , afebrile, hemodynamically stable. Asymptomatic presently. Depending when the patient is discharged may or may not need PICC line/ midline. For now we will hold further procedure. # Hypercapnia along with hypoxia: likely multifactorial due to respiratory depression with a high dose of opioids, BERTHA, complicated with bilateral basal atelectasis. BiPAP as needed, target SpO2 around 92%, avoid over correcting, continue 3 L nasal cannula oxygen, target respiratory rate more than 12. Look for signs of respiratory depression closely. We will repeat VBG/ABG as needed tomorrow if HC03 continues to raise. # chronic hypoxic respiratory failure: patient has baseline of 3 L O2 NC. CXR grossly unremarkable. due to underlying COPD, BERTHA that need further workup. # Possible obstructive sleep apnea: Patient has a previous history of high suspicion of obstructive sleep apnea. Never pursued a sleep study. Outpatient issa sleep study needed. In-hospital CO2 retention as needed CPAP/ BiPAP at sleep time as per the discretion of RT. # Chronic nonhealing left buttock wound cellulitis: Brown recluse spider bite few months ago, recurrent complications, new skin and soft tissue infection status post surgical wound debridement with open wound. Growing Enterococcus faecalis and ESBL. Keep the area dry, scheduled as well as as needed pain management With acetaminophen 650 Q 8 hour, , IV antibiotics to follow. surgery on board , appreciate input. Waiting for appropriate moment to install wound VAC for accelerated wound healing. Appropriate nutrition supplements to continue. Day 2 of daptomycin # chronic cigarette smokin pack-year smoking history all the patient previously mentioned quitting but she confessed of having active smoking. Bedside counseling done for 11 minutes for smoking cessation . As needed nicotine patch. # COPD with chronic hypoxic respiratory failure: Oxygen dependent most of the times at home with exertion and sleeping 3 L nasal cannula baseline, history of COPD likely due to heavy smoking history. Continues to smoke. # CAREN likely vasomotor nephropathy, resolved: I&O WNL. # Mild hypokalemia Resolved on scheduled oral potassium. # chronic Constipation: on Colace, if needed we will add more stool softeners, Last bowel movement 05/24/2024 on opioids. Senna with MiraLax added. If no bowel movement by tomorrow we will add lactulose. Continue oral fluid And high fiber diet. # complex major depressive disorder: with no homicidal or suicidal ideation, continue on duloxetine, Seroquel Mood stable. # chronic Insomnia: On temazepam/Restoril 30 mg at night and zolpidem as needed 10 mg, # DVT prophylaxis: Oral minimal movement, Lovenox for now. Close monitoring of CBC daily, H&H stable with stable platelets. # GI prophylaxis: IV pantoprazole daily> switch to oral # delirium precaution: Continue reorientation, sleep hygiene, family present at bedside, day time open window and nighttime avoidance of room light as needed melatonin. TV and music as needed Diet: Continue diet, high-protein diet with supplements, added multivitamins Discussed with Dr. Faulkner Code status: Full code. Care discussion needed 39 minutes of discussion. Barriers to discharge: Medical workup and management are ongoing. Earliest discharge planning at recovery. Appropriate for downgrade to floor with telemetry. Plan discussed with: Patient, Other (Primary team, RN) My Orders My Orders Orders - MUNIRA KEYS RESIDENT Procedure Category Date Status Time Pantoprazole Tablet PHA 05/30/24 In Process (Protonix Tablet) 07:45 Furosemide Tablet PHA 05/31/24 In Process (Lasix Tablet) 10:00 Bipap/Cpap For Sleep RT 05/30/24 Logged Apnea 18:31 Complete Blood Count LAB 05/31/24 Verified 04:00 Comprehensive LAB 05/31/24 Verified Metabolic Panel 04:00 Polyethylene Glycol PHA 05/30/24 Logged 17g Powder (Miralax 19:45 Senna Pod Tablet PHA 05/30/24 Logged (Senokot Tablet) 22:00 Dietary Evaluation Review Comments: Recommend 2g Na diet and susan BID for wound healing Expected Outcomes/Goals: Healed wound, avoid heart conditions Date of Service: May 30, 2024 Billing Provider: СВЕТЛАНА FAULKNER MD Common Visit Codes: [id number] INP/OBS CARE(HIGH) Coding Comment Comment I saw and evaluated the patient. I reviewed the residents note and agree with findings and plan as documented in the residents note. MUNIRA KEYS RESIDENT May 30, 2024 19:57 СВЕТЛАНА FAULKNER MD May 30, 2024 20:34
[2024-05-30] MEDS: POLYETHYLENE GLYCOL 17 GM PWDR PO ONE (21:48)
[2024-05-30] MEDS: SENNA 8.6 MG TAB PO SCH (21:54)
[2024-05-31] VITALS (9 sets, daily range): BP systolic 96–122; BP diastolic 40–77; PULSE 56–72; RESP 14–18; TEMP 97.5–98.2; O2SAT 94–95
[2024-05-31] MEDS: KETOROLAC TROMETH 30 MG/ML 1ML VIAL IV SCH (04:47)
[2024-05-31] MEDS: MORPHINE SULFATE 4 MG/ML SYR/VIAL IV PRN (06:09)
[2024-05-31 06:36] LABS: Basophils # (auto) 0.1 10 ^3/uL (0-0.2); Basophils % (auto) 0.8 % (0.0-2.0); Eosinophils # (auto) 0.6 10 ^3/uL (0-0.8); Eosinophils % (auto) 6.9 % (0.0-7.0); Hematocrit 43.4 % (36.0-46.0); Hemoglobin 14.7 g/dL (12.2-16.2); Lymphocytes # (auto) 2.3 10 ^3/uL (0.4-5.4); Lymphocytes % (auto) 26.4 % (10.0-50.0); Mean Corpuscular Hemoglobin 33.4 pg (28.0-32.0); Mean Corpuscular Hgb Conc. 33.9 g/dL (32.0-36.0); Mean Corpuscular Volume 98.6 fL (80.0-100.0); Monocytes # (auto) 0.6 10 ^3/uL (0-1.3); Neutrophils % (auto) 58.9 % (37.0-80.0); Platelet Count (auto) 224 10^3/uL (140-450); Red Cell Distribution Width 14.9 % (11.8-14.3); White Blood Cell 8.6 10^3/uL (4.4-10.8)
[2024-05-31 06:47] LABS: Alanine Aminotransferase 12 U/L (7-40); Alkaline Phosphatase 72 U/L (46-116); Anion Gap 6 (5-15); BUN/Creatinine Ratio 15.2 (10.0-20.0); Blood Urea Nitrogen 12 mg/dL (9-23); Calcium 10.3 mg/dL (8.7-10.4); Carbon Dioxide 33 mmol/L (20-31); Chloride 103 mmol/L (98-107); Glucose 118 mg/dL (74-106); Potassium 3.7 mmol/L (3.5-5.1); Sodium 142 mmol/L (136-145)
[2024-05-31 06:49] LABS: Albumin 3.8 g/dL (3.2-4.8); Aspartate Aminotransferase 16 U/L (13-40); Bilirubin, Total 0.3 mg/dL (0.2-1.0); Total Protein 6.1 g/dL (5.7-8.2)
[2024-05-31] MEDS: FUROSEMIDE 40 MG TAB PO SCH (09:43)
--- NOTE | 2024-05-31 18:40 | DVHPNRES ---
Progress Note Date Seen: May 31, 2024 Resident Creating Document: MUNIRA KEYS RESIDENT Medical Necessity Reason Pt with a Central, PICC or Fol: No Subjective Review of Systems Overall the patient is doing well. Hemodynamically stable, afebrile, pain more controlled than yesterday. Surgery on board patient has family and wound VAC at home. Tomorrow the patient family will bring the wound VAC and with the help of sw and surgery team we will plan safe discharge early a.m.. Patient reports: No new complaints Changes from previous H/P or p: No Changes Review of Systems: HEENT:Normal, CVS:Normal, RESPIRATORY:Abnormal (Patient is still refusing BiPAP, although respiratory rate improved, blood pressure improved.), GI:Normal, :Normal, MSK:Abnormal (Postsurgical wound WNL on left buttock.), NEURO:Normal Objective vital signs Vital Sign Date Time Temp Pulse Resp B/P (MAP) Pulse Ox O2 Delivery O2 Flow Rate FiO2 05/31/24 17:00 97.5 67 18 122/77 (92) 95 97.5 05/31/24 12:51 Nasal Cannula 3.0 05/31/24 12:51 32 Total Intake and Output 05/30/24 05/30/24 05/31/24 15:00 23:00 07:00 Intake Total 100 ml 480 ml 0 ml Output Total 850 ml Balance 100 ml -370 ml 0 ml medications Current Medications Medications Dose Ordered Sig/Sumanth Route Start Time Stop Time Status Last Admin Dose Admin Magnesium Oxide 400 mg BID PO 05/25/24 10:00 05/31/24 09:42 400 MG Quetiapine Fumarate 400 mg HS PO 05/25/24 22:00 05/30/24 21:49 400 MG Temazepam 30 mg HS PO 05/25/24 22:00 05/30/24 21:49 30 MG Potassium Chloride 20 meq DAILY PO 05/26/24 10:00 05/31/24 09:42 20 MEQ Acetaminophen 650 mg Q8HR PO 05/27/24 14:00 05/31/24 15:01 650 MG Sodium Chloride 10 ml Q8HR IV 05/28/24 14:00 05/31/24 15:01 10 ML Ondansetron HCl 4 mg Q4HP PRN IV 05/28/24 07:45 Enoxaparin Sodium 40 mg DAILY SC 05/28/24 10:00 05/31/24 09:40 40 MG Nitroglycerin 0.4 mg Q5MINP PRN SL 05/28/24 07:45 Docusate Sodium 100 mg BIDPRN PRN PO 05/28/24 07:45 Albuterol 2.5 mg Q6HPRN PRN NEB 05/28/24 07:45 Cancel Duloxetine HCl 60 mg DAILY PO 05/28/24 10:00 05/31/24 09:42 60 MG Gabapentin 100 mg TID PO 05/28/24 14:00 05/31/24 15:02 100 MG Albuterol 2.5 mg Q6HPRN PRN NEB 05/28/24 20:15 Ipratropium [place] 0.5 mg Q6HPRN PRN NEB 05/28/24 20:15 Ertapenem 1 gm/ Sodium Chloride 50 ml @ 100 mls/hr DAILY IV 05/30/24 10:00 05/31/24 09:42 100 MLS/HR Pantoprazole Sodium 40 mg DAILY@0600 PO 05/30/24 07:45 05/31/24 06:10 40 MG Daptomycin 500 mg/ Sodium Chloride 50 ml @ 100 mls/hr DAILY@1100 IV 05/30/24 11:00 05/31/24 11:45 100 MLS/HR Furosemide 40 mg DAILY PO 05/31/24 10:00 Sennosides 8.6 mg HS PO 05/30/24 22:00 05/30/24 21:54 8.6 MG Ketorolac Tromethamine 15 mg Q6HR IV 05/31/24 00:00 06/05/24 00:00 05/31/24 17:35 15 MG Morphine Sulfate 2 mg Q6HPRN PRN IV 05/30/24 20:15 05/31/24 13:08 2 MG Examination: GENERAL:Normal, HEENT:Normal, NECK:Normal, LUNGS:Abnormal (On 3 L nasal cannula oxygen), CVS:Normal, ABDOMEN:Normal, MSK:Normal, SKIN:Normal, NEURO:Normal, :Normal laboratory and microbiology Laboratory Tests 05/31/24 06:10 Test 05/31/24 06:10 Range/Units Serum Glucose 118 H 74-106 mg/dL Microbiology Date/Time Source Procedure Growth Status 05/25/24 09:50 Buttock Gram Stain - Final Complete 05/25/24 09:50 Wound Culture - Final Escherichia coli - ESBL Enterococcus faecalis Complete 05/24/24 17:00 Voided Urine Urine Culture - Final Escherichia coli - ESBL Complete 05/24/24 15:37 Blood Blood Culture - Final NO GROWTH AFTER 5 DAYS OF INCUBATION. Complete Labs and/or images reviewed: Labs reviewed by me, Image(s) reviewed by me Problem List/Assessment/Plan Problem List/Assessment/Plan Hospital course: A 59-year-old female with a history of hypertension, hyperlipidemia, HFpEF congestive heart failure, COPD, depression, coronary artery disease , cholecystectomy, , tonsillectomy, prior debrided left buttock wound Escher developed after the spider bite presented to the ED with chills, dysuria, nausea, and vomiting for the past week, along with burning pain during urination, suprapubic abdominal pain, and a chronic nonhealing wound with cellulitis and eschar on the left buttock from a spider bite, which has not improved despite antibiotics and wound care, leading to sepsis and debridement; she denies chest pain, palpitations, dizziness, and diarrhea. At admission noted Left buttock tenderness, wound with eschar, redness, swollen, tender, warmth. Patient has been found with ESBL in both urine and wound cultures. also patient is growing Enterococcus faecalis in own. Status post IV antibiotics, surgical debridement and pending wound VAC placement. # septic shock , Resolved # Acute complicated UTI: ESBL, ertapenem (Day 6/14) appropriately, afebrile, hemodynamically stable and asymptomatic. PICC line placement pending. # Hypercapnia along with hypoxia: likely multifactorial due to respiratory depression with a high dose of opioids, BERTHA, complicated with bilateral basal atelectasis. BiPAP as needed all the patient continues to decline. # chronic hypoxic respiratory failure: patient has baseline of 3 L O2 NC due to underlying COPD, BERTHA that need further outpatient sleep study. # Possible obstructive sleep apnea: Counseling regarding CPAP/ BiPAP done. # Chronic nonhealing left buttock wound cellulitis: Status post surgical debridement, Continue pain management, Day 3 of daptomycin for Enterococcus faecalis and day 6 of Invanz. For ESBL PICC line placement for prolonged antibiotics. Wound VAC and outpatient surgical close follow up necessary. # chronic cigarette smokin pack-year smoking history all the patient previously mentioned quitting but she confessed of having active smoking. Bedside counseling done for 11 minutes for smoking cessation. # COPD with chronic hypoxic respiratory failure: COPD likely due to heavy Ongoing smoking history. symptomatic management and outpatient pulmonology follow up. # CAREN likely vasomotor nephropathy, resolved: I&O WNL. # Mild hypokalemia: Resolved on scheduled oral potassium. # chronic Constipation: Added lactulose, plenty of fluid with high-fiber diet. # complex major depressive disorder: with no homicidal or suicidal ideation, continue on duloxetine, Seroquel. Mood stable. # chronic Insomnia: On temazepam/Restoril 30 mg at night and zolpidem as needed 10 mg, continue sleep hygiene. # DVT prophylaxis: Lovenox for now. Close monitoring of CBC daily, H&H stable with stable platelets. Encourage movement at discharge off of Lovenox. # GI prophylaxis: IV pantoprazole daily> switch to oral # delirium precaution: Continue reorientation, sleep hygiene, family present at bedside, day time open window and nighttime avoidance of room light as needed melatonin. TV and music as needed. Diet: Continue diet, high-protein diet with supplements, added multivitamins Discussed with Dr. Faulkner Code status: Full code. Care discussion needed 41 minutes of discussion. Barriers to discharge: Can downgrade to med surge. PICC line and wound VAC yet to be placed. 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 Plan discussed with: Patient, Other (Primary team, RN.) My Orders My Orders Orders - MUNIRA KEYS RESIDENT Procedure Category Date Status Time Bipap/Cpap For Sleep RT 05/30/24 Logged Apnea 18:31 Senna Pod Tablet PHA 05/30/24 In Process (Senokot Tablet) 22:00 Ketorolac Injection PHA 05/31/24 In Process (Toradol Injection) 00:00 Morphine Sulfate PHA 05/30/24 In Process Injection 20:15 Dietary Evaluation Review Comments: Recommend 2g Na diet and susan BID for wound healing Expected Outcomes/Goals: Healed wound, avoid heart conditions Date of Service: May 31, 2024 Billing Provider: СВЕТЛАНА FAULKNER MD Common Visit Codes: [id number] INP/OBS CARE(HIGH) Coding Comment Comment I saw and evaluated the patient. I reviewed the residents note and agree with findings and plan as documented in the residents note. Patient will need wound VAC in can be discharged IV antibiotics at home. Duration pending 1 patient will get, social service team aware MUNIRA KEYS May 31, 2024 18:40 СВЕТЛАНА FAULKNER MD May 31, 2024 20:51
[2024-05-31] MEDS ORDERED: LACTULOSE 20Gm/30ML SOLN PO ONE (18:45)
[2024-05-31] MEDS: ONDANSETRON HCL 4 MG/2 ML VIAL IV PRN (18:52)
[2024-05-31] MEDS: MULTIPLE VITAMINS W/ MINERALS TAB PO SCH (21:03)
[2024-06-01] VITALS (8 sets, daily range): BP systolic 89–113; BP diastolic 40–72; PULSE 61–71; RESP 16–20; TEMP 97.5–98.9; O2SAT 91–94
[2024-06-01 05:07] LABS: Basophils # (auto) 0.1 10 ^3/uL (0-0.2); Eosinophils # (auto) 0.6 10 ^3/uL (0-0.8); Eosinophils % (auto) 7.6 % (0.0-7.0); Hematocrit 40.3 % (36.0-46.0); Hemoglobin 13.6 g/dL (12.2-16.2); Lymphocytes # (auto) 2.5 10 ^3/uL (0.4-5.4); Lymphocytes % (auto) 32.9 % (10.0-50.0); Mean Corpuscular Hemoglobin 33.4 pg (28.0-32.0); Mean Corpuscular Hgb Conc. 33.7 g/dL (32.0-36.0); Monocytes # (auto) 0.6 10 ^3/uL (0-1.3); Monocytes % (auto) 7.6 % (0.0-12.0); Neutrophils # (auto) 3.9 10 ^3/uL (1.6-8.6); Neutrophils % (auto) 50.9 % (37.0-80.0); Nucleated Red Blood Cells % 0.1 %; Platelet Count (auto) 220 10^3/uL (140-450); Red Blood Cells 4.07 10^6/uL (4.0-5.20); Red Cell Distribution Width 15.1 % (11.8-14.3); White Blood Cell 7.8 10^3/uL (4.4-10.8)
[2024-06-01 05:14] LABS: Chloride 107 mmol/L (98-107); Potassium 4.1 mmol/L (3.5-5.1); Sodium 142 mmol/L (136-145)
[2024-06-01 05:15] LABS: Anion Gap 3 (5-15); Carbon Dioxide 32 mmol/L (20-31)
[2024-06-01 05:20] LABS: BUN/Creatinine Ratio 19.1 (10.0-20.0); Blood Urea Nitrogen 13 mg/dL (9-23); Glucose 79 mg/dL (74-106)
[2024-06-01 05:21] LABS: Creatine Kinase IFCC 16 U/L (34-145)
--- NOTE | 2024-06-01 11:27 | DVHPN2 ---
Progress Note Date Seen: Jun 01, 2024 Medical Necessity Reason Pt with a Central, PICC or Fol: No Subjective Patient reports: No new complaints, Feels better Review of Systems: HEENT:Normal, CVS:Normal, RESPIRATORY:Normal, GI:Normal, :Normal, NEURO:Normal Objective vital signs Vital Sign Date Time Temp Pulse Resp B/P (MAP) Pulse Ox O2 Delivery O2 Flow Rate FiO2 06/01/24 11:14 72 18 112/73 06/01/24 08:15 98.0 94 98.0 06/01/24 08:00 Nasal Cannula* 3 32 Total Intake and Output 05/31/24 05/31/24 06/01/24 15:00 23:00 07:00 Intake Total 100 ml 600 ml 0 ml Balance 100 ml 600 ml 0 ml medications Current Medications Medications Dose Ordered Sig/Sumanth Route Start Time Stop Time Status Last Admin Dose Admin Magnesium Oxide 400 mg BID PO 05/25/24 10:00 06/01/24 09:01 400 MG Quetiapine Fumarate 400 mg HS PO 05/25/24 22:00 05/31/24 21:04 400 MG Temazepam 30 mg HS PO 05/25/24 22:00 05/31/24 21:14 30 MG Potassium Chloride 20 meq DAILY PO 05/26/24 10:00 06/01/24 09:01 20 MEQ Acetaminophen 650 mg Q8HR PO 05/27/24 14:00 05/31/24 15:01 650 MG Sodium Chloride 10 ml Q8HR IV 05/28/24 14:00 06/01/24 06:20 10 ML Ondansetron HCl 4 mg Q4HP PRN IV 05/28/24 07:45 05/31/24 18:52 4 MG Enoxaparin Sodium 40 mg DAILY SC 05/28/24 10:00 06/01/24 09:02 40 MG Nitroglycerin 0.4 mg Q5MINP PRN SL 05/28/24 07:45 Docusate Sodium 100 mg BIDPRN PRN PO 05/28/24 07:45 Albuterol 2.5 mg Q6HPRN PRN NEB 05/28/24 07:45 Cancel Duloxetine HCl 60 mg DAILY PO 05/28/24 10:00 06/01/24 09:27 60 MG Gabapentin 100 mg TID PO 05/28/24 14:00 06/01/24 06:26 100 MG Albuterol 2.5 mg Q6HPRN PRN NEB 05/28/24 20:15 Ipratropium [place] 0.5 mg Q6HPRN PRN NEB 05/28/24 20:15 Ertapenem 1 gm/ Sodium Chloride 50 ml @ 100 mls/hr DAILY IV 05/30/24 10:00 06/01/24 09:02 100 MLS/HR Pantoprazole Sodium 40 mg DAILY@0600 PO 05/30/24 07:45 06/01/24 06:26 40 MG Daptomycin 500 mg/ Sodium Chloride 50 ml @ 100 mls/hr DAILY@1100 IV 05/30/24 11:00 06/01/24 10:22 100 MLS/HR Furosemide 40 mg DAILY PO 05/31/24 10:00 Sennosides 8.6 mg HS PO 05/30/24 22:00 05/31/24 21:04 8.6 MG Ketorolac Tromethamine 15 mg Q6HR IV 05/31/24 00:00 06/05/24 00:00 05/31/24 17:35 15 MG Morphine Sulfate 2 mg Q6HPRN PRN IV 05/30/24 20:15 06/01/24 11:14 2 MG Multivitamins/ Minerals 1 tab DAILY PO 05/31/24 18:45 06/01/24 09:01 1 TAB Examination: GENERAL:Normal, HEENT:Normal, NECK:Normal, LUNGS:Normal, CVS:Normal, ABDOMEN:Normal, MSK:Normal, SKIN:Abnormal (LEFT THIGH WOUND ) laboratory and microbiology Laboratory Tests 06/01/24 04:50 Test 06/01/24 04:50 Range/Units Serum Glucose 79 74-106 mg/dL Problem List/Assessment/Plan Problem List/Assessment/Plan 06/01/24- no new complaints, wound vac on , minimal fluid in wound vac canister, ok to discharge per surgery , patient to follow up in clinic 1-2 weeks , home health for wound vac Plan discussed with: Patient, Other (Dr. roth ) Dietary Evaluation Review Comments: Recommend 2g Na diet and susan BID for wound healing Expected Outcomes/Goals: Healed wound, avoid heart conditions ALESIA LU NP Jun 01, 2024 11:27
--- NOTE | 2024-06-01 16:05 | DVHPNRES ---
Progress Note Date Seen: Jun 01, 2024 Resident Creating Document: ANNEMARIE MEEKS RESIDENT Medical Necessity Reason Pt with a Central, PICC or Fol: No Subjective Review of Systems Overall the patient is doing well. Hemodynamically stable, afebrile, pain more controlled than yesterday. Surgery on board patient has family and wound VAC at home. Tomorrow the patient family will bring the wound VAC and with the help of sw and surgery team we will plan safe discharge early a.m.. Patient reports: No new complaints Changes from previous H/P or p: No Changes Review of Systems: HEENT:Normal, CVS:Normal, RESPIRATORY:Abnormal (Patient is still refusing BiPAP, although respiratory rate improved, blood pressure improved.), GI:Normal, :Normal, MSK:Abnormal (Postsurgical wound WNL on left buttock.), NEURO:Normal Objective vital signs Vital Sign Date Time Temp Pulse Resp B/P (MAP) Pulse Ox O2 Delivery O2 Flow Rate FiO2 06/01/24 11:44 98.8 71 17 101/64 (76) 91 98.8 06/01/24 08:00 Nasal Cannula* 3 32 Total Intake and Output 05/31/24 05/31/24 06/01/24 15:00 23:00 07:00 Intake Total 100 ml 600 ml 0 ml Balance 100 ml 600 ml 0 ml medications Current Medications Medications Dose Ordered Sig/Sumanth Route Start Time Stop Time Status Last Admin Dose Admin Magnesium Oxide 400 mg BID PO 05/25/24 10:00 06/01/24 09:01 400 MG Quetiapine Fumarate 400 mg HS PO 05/25/24 22:00 05/31/24 21:04 400 MG Temazepam 30 mg HS PO 05/25/24 22:00 05/31/24 21:14 30 MG Potassium Chloride 20 meq DAILY PO 05/26/24 10:00 06/01/24 09:01 20 MEQ Acetaminophen 650 mg Q8HR PO 05/27/24 14:00 06/01/24 15:08 650 MG Sodium Chloride 10 ml Q8HR IV 05/28/24 14:00 06/01/24 12:53 10 ML Ondansetron HCl 4 mg Q4HP PRN IV 05/28/24 07:45 05/31/24 18:52 4 MG Enoxaparin Sodium 40 mg DAILY SC 05/28/24 10:00 06/01/24 09:02 40 MG Nitroglycerin 0.4 mg Q5MINP PRN SL 05/28/24 07:45 Docusate Sodium 100 mg BIDPRN PRN PO 05/28/24 07:45 Albuterol 2.5 mg Q6HPRN PRN NEB 05/28/24 07:45 Cancel Duloxetine HCl 60 mg DAILY PO 05/28/24 10:00 06/01/24 09:27 60 MG Gabapentin 100 mg TID PO 05/28/24 14:00 06/01/24 15:06 100 MG Albuterol 2.5 mg Q6HPRN PRN NEB 05/28/24 20:15 Ipratropium [place] 0.5 mg Q6HPRN PRN NEB 05/28/24 20:15 Ertapenem 1 gm/ Sodium Chloride 50 ml @ 100 mls/hr DAILY IV 05/30/24 10:00 06/01/24 09:02 100 MLS/HR Pantoprazole Sodium 40 mg DAILY@0600 PO 05/30/24 07:45 06/01/24 06:26 40 MG Daptomycin 500 mg/ Sodium Chloride 50 ml @ 100 mls/hr DAILY@1100 IV 05/30/24 11:00 06/01/24 10:22 100 MLS/HR Furosemide 40 mg DAILY PO 05/31/24 10:00 Sennosides 8.6 mg HS PO 05/30/24 22:00 05/31/24 21:04 8.6 MG Ketorolac Tromethamine 15 mg Q6HR IV 05/31/24 00:00 06/05/24 00:00 06/01/24 12:53 15 MG Morphine Sulfate 2 mg Q6HPRN PRN IV 05/30/24 20:15 06/01/24 11:14 2 MG Multivitamins/ Minerals 1 tab DAILY PO 05/31/24 18:45 06/01/24 09:01 1 TAB Examination GENERAL:Normal, HEENT:Normal, NECK:Normal LUNGS:Abnormal (On 3 L nasal cannula oxygen), CVS:Normal, ABDOMEN:Normal, MSK:Normal, SKIN:Normal, NEURO:Normal, :Normal laboratory and microbiology Laboratory Tests 06/01/24 04:50 Test 06/01/24 04:50 Range/Units Serum Glucose 79 74-106 mg/dL Microbiology Date/Time Source Procedure Growth Status 05/25/24 09:50 Buttock Gram Stain - Final Complete 05/25/24 09:50 Wound Culture - Final Escherichia coli - ESBL Enterococcus faecalis Complete 05/24/24 17:00 Voided Urine Urine Culture - Final Escherichia coli - ESBL Complete 05/24/24 15:37 Blood Blood Culture - Final NO GROWTH AFTER 5 DAYS OF INCUBATION. Complete Problem List/Assessment/Plan Problem List/Assessment/Plan Hospital course: A 59-year-old female with a history of hypertension, hyperlipidemia, HFpEF congestive heart failure, COPD, depression, coronary artery disease , cholecystectomy, , tonsillectomy, prior debrided left buttock wound Escher developed after the spider bite presented to the ED with chills, dysuria, nausea, and vomiting for the past week, along with burning pain during urination, suprapubic abdominal pain, and a chronic nonhealing wound with cellulitis and eschar on the left buttock from a spider bite, which has not improved despite antibiotics and wound care, leading to sepsis and debridement; she denies chest pain, palpitations, dizziness, and diarrhea. At admission noted Left buttock tenderness, wound with eschar, redness, swollen, tender, warmth. Patient has been found with ESBL in both urine and wound cultures. also patient is growing Enterococcus faecalis in own. Status post IV antibiotics, surgical debridement and pending wound VAC placement. # septic shock , Resolved # Acute complicated UTI: ESBL, ertapenem (Day 6/14) appropriately, afebrile, hemodynamically stable and asymptomatic. Midline placed today on 06/01/2024 # Hypercapnia along with hypoxia: likely multifactorial due to respiratory depression with a high dose of opioids, BERTHA, complicated with bilateral basal atelectasis. BiPAP as needed all the patient continues to decline. # chronic hypoxic respiratory failure: patient has baseline of 3 L O2 NC due to underlying COPD, BERTHA that need further outpatient sleep study. # Possible obstructive sleep apnea: Counseling regarding CPAP/ BiPAP done. # Chronic nonhealing left buttock wound cellulitis: Status post surgical debridement, Continue pain management, Day 3 of daptomycin for Enterococcus faecalis and day 6 of Invanz. For ESBL mid line placement for prolonged antibiotics. Wound VAC placed today 06/01/2024 # chronic cigarette smokin pack-year smoking history all the patient previously mentioned quitting but she confessed of having active smoking. Bedside counseling done for 11 minutes for smoking cessation. # COPD with chronic hypoxic respiratory failure: COPD likely due to heavy Ongoing smoking history. symptomatic management and outpatient pulmonology follow up. # CAREN likely vasomotor nephropathy, resolved: I&O WNL. # Mild hypokalemia: Resolved on scheduled oral potassium. # chronic Constipation: Added lactulose, plenty of fluid with high-fiber diet. # complex major depressive disorder: with no homicidal or suicidal ideation, continue on duloxetine, Seroquel. Mood stable. # chronic Insomnia: On temazepam/Restoril 30 mg at night and zolpidem as needed 10 mg, continue sleep hygiene. # DVT prophylaxis: Lovenox for now. Close monitoring of CBC daily, H&H stable with stable platelets. Encourage movement at discharge off of Lovenox. # GI prophylaxis: IV pantoprazole daily> switch to oral # delirium precaution: Continue reorientation, sleep hygiene, family present at bedside, day time open window and nighttime avoidance of room light as needed melatonin. TV and music as needed. Diet: Continue diet, high-protein diet with supplements, added multivitamins Discussed with Dr. Faulkner Code status: Full code. Care discussion needed 41 minutes of discussion. Barriers to discharge: downgraded to med surge. Midline and wound VAC placed, however, unable to secure home health until Monday06/03/2024. 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 I reviewed the residents note and agree with findings and plan as documented in the residents note. ANNEMARIE MEEKS Jun 01, 2024 16:05 СВЕТЛАНА FAULKNER MD Jun 01, 2024 22:55
[2024-06-02 05:00] VITALS: BP 111/67; PULSE 67; RESP 19; TEMP 97.3; O2SAT 95
[2024-06-02 08:24] VITALS: BP 111/56; PULSE 63; RESP 19; TEMP 98.2; O2SAT 95
--- NOTE | 2024-06-02 08:25 | DVHPNRES ---
Progress Note Date Seen: Jun 02, 2024 Resident Creating Document: MUNIRA KEYS RESIDENT Medical Necessity Reason Pt with a Central, PICC or Fol: No Subjective Patient reports: No new complaints, Feels better Changes from previous H/P or p: No Changes Review of Systems: HEENT:Normal, CVS:Normal, RESPIRATORY:Normal (Better, now on 2 L of oxygen, although baseline 3 L), GI:Normal, :Normal, MSK:Normal, NEURO:Normal Objective vital signs Vital Sign Date Time Temp Pulse Resp B/P (MAP) Pulse Ox O2 Delivery O2 Flow Rate FiO2 06/02/24 08:24 98.2 63 19 111/56 (74) 95 98.2 06/01/24 20:14 Nasal Cannula 2.0 06/01/24 20:14 28 Total Intake and Output 06/01/24 06/01/24 06/02/24 15:00 23:00 07:00 Intake Total 100 ml 900 ml 800 ml Output Total 600 ml Balance 100 ml 300 ml 800 ml medications Current Medications Medications Dose Ordered Sig/Sumanth Route Start Time Stop Time Status Last Admin Dose Admin Magnesium Oxide 400 mg BID PO 05/25/24 10:00 06/01/24 21:11 400 MG Quetiapine Fumarate 400 mg HS PO 05/25/24 22:00 06/01/24 21:11 400 MG Temazepam 30 mg HS PO 05/25/24 22:00 06/01/24 21:10 30 MG Potassium Chloride 20 meq DAILY PO 05/26/24 10:00 06/01/24 09:01 20 MEQ Acetaminophen 650 mg Q8HR PO 05/27/24 14:00 06/01/24 15:08 650 MG Sodium Chloride 10 ml Q8HR IV 05/28/24 14:00 06/02/24 06:44 10 ML Ondansetron HCl 4 mg Q4HP PRN IV 05/28/24 07:45 05/31/24 18:52 4 MG Enoxaparin Sodium 40 mg DAILY SC 05/28/24 10:00 06/01/24 09:02 40 MG Nitroglycerin 0.4 mg Q5MINP PRN SL 05/28/24 07:45 Docusate Sodium 100 mg BIDPRN PRN PO 05/28/24 07:45 Albuterol 2.5 mg Q6HPRN PRN NEB 05/28/24 07:45 Cancel Duloxetine HCl 60 mg DAILY PO 05/28/24 10:00 06/01/24 09:27 60 MG Gabapentin 100 mg TID PO 05/28/24 14:00 06/02/24 05:29 100 MG Albuterol 2.5 mg Q6HPRN PRN NEB 05/28/24 20:15 Cancel Ipratropium [place] 0.5 mg Q6HPRN PRN NEB 05/28/24 20:15 Cancel Ertapenem 1 gm/ Sodium Chloride 50 ml @ 100 mls/hr DAILY IV 05/30/24 10:00 06/01/24 09:02 100 MLS/HR Pantoprazole Sodium 40 mg DAILY@0600 PO 05/30/24 07:45 06/02/24 05:29 40 MG Daptomycin 500 mg/ Sodium Chloride 50 ml @ 100 mls/hr DAILY@1100 IV 05/30/24 11:00 06/01/24 10:22 100 MLS/HR Furosemide 40 mg DAILY PO 05/31/24 10:00 Sennosides 8.6 mg HS PO 05/30/24 22:00 06/01/24 21:10 8.6 MG Ketorolac Tromethamine 15 mg Q6HR IV 05/31/24 00:00 06/05/24 00:00 06/01/24 12:53 15 MG Morphine Sulfate 2 mg Q6HPRN PRN IV 05/30/24 20:15 06/02/24 05:31 2 MG Multivitamins/ Minerals 1 tab DAILY PO 05/31/24 18:45 06/01/24 09:01 1 TAB Examination: GENERAL:Normal, HEENT:Normal, NECK:Normal, LUNGS:Normal, CVS:Normal, ABDOMEN:Normal, MSK:Abnormal (wound VAC,), SKIN:Normal, NEURO:Normal, :Normal laboratory and microbiology Laboratory Tests 06/01/24 04:50 Test 06/01/24 04:50 Range/Units Serum Glucose 79 74-106 mg/dL Microbiology Date/Time Source Procedure Growth Status 05/25/24 09:50 Buttock Gram Stain - Final Complete 05/25/24 09:50 Wound Culture - Final Escherichia coli - ESBL Enterococcus faecalis Complete 05/24/24 17:00 Voided Urine Urine Culture - Final Escherichia coli - ESBL Complete 05/24/24 15:37 Blood Blood Culture - Final NO GROWTH AFTER 5 DAYS OF INCUBATION. Complete Labs and/or images reviewed: Labs reviewed by me, Image(s) reviewed by me Problem List/Assessment/Plan Problem List/Assessment/Plan Hospital course: A 59-year-old female with a history of hypertension, hyperlipidemia, HFpEF congestive heart failure, COPD, depression, coronary artery disease , cholecystectomy, , tonsillectomy, prior debrided left buttock wound Escher developed after the spider bite presented to the ED with chills, dysuria, nausea, and vomiting for the past week, along with burning pain during urination, suprapubic abdominal pain, and a chronic nonhealing wound with cellulitis and eschar on the left buttock from a spider bite, which has not improved despite antibiotics and wound care, leading to sepsis and debridement; she denies chest pain, palpitations, dizziness, and diarrhea. At admission noted Left buttock tenderness, wound with eschar, redness, swollen, tender, warmth. Patient has been found with ESBL in both urine and wound cultures. also patient is growing Enterococcus faecalis in own. Status post IV antibiotics, surgical debridement and pending wound VAC placement. # septic shock , Resolved # Acute complicated UTI: ESBL, ertapenem (Day 03/06) appropriately, afebrile, hemodynamically stable and asymptomatic. Midline placed on 06/01/2024. # Hypercapnia along with hypoxia: likely multifactorial due to respiratory depression with a high dose of opioids, BERTHA, complicated with bilateral basal atelectasis. BiPAP as needed all the patient continues to decline. # chronic hypoxic respiratory failure: patient has baseline of 3 L O2 NC due to underlying COPD, BERTHA that need further outpatient sleep study. # Possible obstructive sleep apnea: Counseling regarding CPAP/ BiPAP done. # Chronic nonhealing left buttock wound cellulitis: Status post surgical debridement, Continue pain management, Day 5 of daptomycin for Enterococcus faecalis and day 8 of Invanz. For ESBL mid line placement for prolonged antibiotics. S/p wound VAC. # chronic cigarette smokin pack-year smoking history all the patient previously mentioned quitting but she confessed of having active smoking. Bedside counseling done for 11 minutes for smoking cessation. Patient was counseled regarding delayed wound healing due to the same. # COPD with chronic hypoxic respiratory failure: COPD likely due to heavy Ongoing smoking history. symptomatic management and outpatient pulmonology follow up. # CAREN likely vasomotor nephropathy, resolved: I&O WNL. # Mild hypokalemia: Corrected on scheduled oral potassium. # chronic Constipation: S/p laxatives, plenty of fluid with high-fiber diet. # complex major depressive disorder: with no homicidal or suicidal ideation, continue on duloxetine, Seroquel. Mood stable. # chronic Insomnia: On temazepam/Restoril 30 mg at night and zolpidem as needed 10 mg, continue sleep hygiene. # DVT prophylaxis: Encourage movement at discharge off of Lovenox. # GI prophylaxis: continue oral # delirium precaution: Continue reorientation, sleep hygiene, family present at bedside, day time open window and nighttime avoidance of room light as needed melatonin. TV and music as needed. Diet: Continue diet, high-protein diet supplements, & multivitamins Discussed with Dr. Faulkner Code status: Full code. Care discussion needed 41 minutes of discussion. Barriers to discharge: Midline and wound VAC placed, however, unable to secure home health until Monday06/04/2024. I appreciate sw input. Tomorrow IV antibiotics and then discharge. Plan discussed with: Patient, Other (Primary team, RN.) Dietary Evaluation Review Comments: Recommend 2g Na diet and susan BID for wound healing Expected Outcomes/Goals: Healed wound, avoid heart conditions Date of Service: Jun 02, 2024 Billing Provider: СВЕТЛАНА FAULKNER MD Common Visit Codes: [id number] INP/OBS CARE(MOD) Coding Comment Comment I saw and evaluated the patient. I reviewed the residents note and agree with findings and plan as documented in the residents note. MUNIRA KEYS RESIDENT Jun 02, 2024 08:25 СВЕТЛАНА FAULKNER MD Jun 03, 2024 21:11
[2024-06-02 11:45] VITALS: BP 107/55; PULSE 75; RESP 19; TEMP 98; O2SAT 90
[2024-06-02 16:00] VITALS: BP 129/80; PULSE 60; RESP 18; TEMP 97.3; O2SAT 91
[2024-06-02 22:00] VITALS: BP 119/70; PULSE 83; RESP 18; TEMP 98.2; O2SAT 94
[2024-06-03 05:00] VITALS: BP 90/53; PULSE 64; RESP 18; TEMP 97.6; O2SAT 94
[2024-06-03 05:24] LABS: Basophils # (auto) 0.1 10 ^3/uL (0-0.2); Basophils % (auto) 2.2 % (0.0-2.0); Chloride 105 mmol/L (98-107); Eosinophils # (auto) 0.5 10 ^3/uL (0-0.8); Eosinophils % (auto) 8.1 % (0.0-7.0); Hematocrit 38.5 % (36.0-46.0); Hemoglobin 12.7 g/dL (12.2-16.2); Lymphocytes # (auto) 2.6 10 ^3/uL (0.4-5.4); Lymphocytes % (auto) 40.9 % (10.0-50.0); Mean Corpuscular Hemoglobin 32.6 pg (28.0-32.0); Monocytes # (auto) 0.5 10 ^3/uL (0-1.3); Monocytes % (auto) 8.2 % (0.0-12.0); Neutrophils # (auto) 2.6 10 ^3/uL (1.6-8.6); Neutrophils % (auto) 40.6 % (37.0-80.0); Nucleated Red Blood Cells % 0.1 %; Platelet Count (auto) 258 10^3/uL (140-450); Potassium 4.1 mmol/L (3.5-5.1); Red Blood Cells 3.89 10^6/uL (4.0-5.20); Red Cell Distribution Width 15.1 % (11.8-14.3); Sodium 143 mmol/L (136-145); White Blood Cell 6.4 10^3/uL (4.4-10.8)
[2024-06-03 05:25] LABS: Anion Gap 6 (5-15); Calcium 9.9 mg/dL (8.7-10.4); Carbon Dioxide 32 mmol/L (20-31)
[2024-06-03 05:30] LABS: BUN/Creatinine Ratio 15.4 (10.0-20.0); Blood Urea Nitrogen 12 mg/dL (9-23); Glucose 79 mg/dL (74-106)
--- NOTE | 2024-06-03 07:56 | DVHDSRES ---
Discharge Summary Date of Admission Resident Creating Document: MUNIRA KEYS RESIDENT May 24, 2024 at 20:36 Date of Discharge: Jun 03, 2024 Admitting Diagnosis Left buttock soft tissue infection. Labs/Diagnostic Data: Laboratory Results Test 06/03/24 04:17 06/01/24 04:50 05/31/24 06:10 05/30/24 13:17 White Blood Count 6.4 10^3/uL (4.4-10.8) Red Blood Count 3.89 10^6/uL (4.0-5.20) Hemoglobin 12.7 g/dL (12.2-16.2) Hematocrit 38.5 % (36.0-46.0) Mean Corpuscular Volume 99.0 fL (80.0-100.0) Mean Corpuscular Hemoglobin 32.6 pg (28.0-32.0) Mean Corpuscular Hemoglobin Concent 33.0 g/dL (32.0-36.0) Red Cell Distribution Width 15.1 % (11.8-14.3) Platelet Count 258 10^3/uL (140-450) Mean Platelet Volume 8.4 fL (6.9-10.8) Neutrophils (%) (Auto) 40.6 % (37.0-80.0) Lymphocytes (%) (Auto) 40.9 % (10.0-50.0) Monocytes (%) (Auto) 8.2 % (0.0-12.0) Eosinophils (%) (Auto) 8.1 % (0.0-7.0) Basophils (%) (Auto) 2.2 % (0.0-2.0) Neutrophils # (Auto) 2.6 10 ^3/uL (1.6-8.6) Lymphocytes # (Auto) 2.6 10 ^3/uL (0.4-5.4) Monocytes # (Auto) 0.5 10 ^3/uL (0-1.3) Eosinophils # (Auto) 0.5 10 ^3/uL (0-0.8) Basophils # (Auto) 0.1 10 ^3/uL (0-0.2) Nucleated Red Blood Cells 0.1 % Sodium Level 143 mmol/L (136-145) Potassium Level 4.1 mmol/L (3.5-5.1) Chloride Level 105 mmol/L (98-107) Carbon Dioxide Level 32 mmol/L (20-31) Anion Gap 6 (5-15) Blood Urea Nitrogen 12 mg/dL (9-23) Creatinine 0.78 mg/dL (0.550-1.02) Glomerular Filtration Rate Calc 87 mL/min (>90) BUN/Creatinine Ratio 15.4 (10.0-20.0) Serum Glucose 79 mg/dL (74-106) Calcium Level 9.9 mg/dL (8.7-10.4) Creatine Kinase 16 U/L (34-145) Total Bilirubin 0.3 mg/dL (0.2-1.0) Aspartate Amino Transferase (AST) 16 U/L (13-40) Alanine Aminotransferase (ALT) 12 U/L (7-40) Alkaline Phosphatase 72 U/L (46-116) Total Protein 6.1 g/dL (5.7-8.2) Albumin 3.8 g/dL (3.2-4.8) Blood Gas Specimen Type Arterial Blood Gas Sample Site Right radial Blood Gas Patient Temperature 37.0 Arterial Blood Date Drawn [id number] Arterial Blood pH 7.460 (7.350-7.450) Arterial Blood Partial Pressure CO2 51.6 mmHg (32.0-45.0) Arterial Blood Partial Pressure O2 48.6 mmHg (83.0-108.0) Arterial Blood HCO3 35.9 mmol/L (21.0-28.0) Arterial Blood Oxygen Saturation 84.7 % (94.0-98.0) Arterial Blood Base Excess 10.3 mmol/L (-2.0-3.0) Arterial Blood Oxyhemoglobin 83.0 % (94.0-98.0) Arterial Blood Carboxyhemoglobin 1.7 % (0.5-1.5) Arterial Blood Methemoglobin 0.3 % (0.0-1.5) Chandu Test Yes Blood Gas Total Hemoglobin 13.60 g/dL (12.0-16.0) Blood Gas Liter Flow 0.00 Blood Gas Modality Room air FiO2 % 21.0 Blood Gas Critical Value Read Back Yes Blood Gas Notified Whom sarah Malik md Blood Gas Notified Time [id number] Blood Gas Notified By Gely cavanaugh time signal wirer Test 05/30/24 10:00 05/29/24 20:55 05/28/24 04:56 05/25/24 03:32 Prothrombin Time 10.6 sec (9.3-11.8) Prothrombin Time INR 1.00 (0.9-1.15) Activated Partial Thromboplast Time 32.3 SEC (24.5-34.5) Vancomycin Level Trough 15.5 ug/mL (5-10) Random Vancomycin Level 11.6 ug/mL (5-10) Hemoglobin A1c 4.6 % A1C (<5.7) Vitamin B12 Level 2034 pg/mL (211-911) Vitamin D 25-Hydroxy 81.8 ng/mL (30.0-100) Thyroid Stimulating Hormone (TSH) 2.86 uIU/mL (0.55-4.78) Test 05/24/24 17:00 05/24/24 15:37 Urine Color Dark-yellow (Yellow) Urine Clarity Turbid (Clear) Urine pH 5.5 (5.0-9.0) Urine Specific Mcgregor 1.009 (1.001-1.035) Urine Protein Trace (Negative) Urine Ketones Negative (Negative) Urine Blood 3+ /uL (Negative) Urine Nitrite 1+ (Negative) Urine Bilirubin Negative (Negative) Urine Urobilinogen Normal mg/dL (Negative) Urine Leukocyte Esterase 3+ /uL (Negative) Urine RBC 487 /hpf (0 - 4) Urine WBC 627 /hpf (0 - 5) Urine Squamous Epithelial Cells Few /hpf (<5) Urine Bacteria Few /hpf (None Seen) Urine Hyaline Casts Mod /lpf (0 - 2) Urine Glucose Normal mg/dL (Normal) Urine Opiates Screen Pos (NEGATIVE) Urine Fentanyl Screen Neg (NEGATIVE) Urine Barbiturates Screen Neg (NEGATIVE) Urine Phencyclidine Screen Neg (NEGATIVE) Urine Amphetamines Screen Neg (NEGATIVE) Urine Benzodiazepines Screen Neg (NEGATIVE) Urine Cocaine Screen Neg (NEGATIVE) Urine Cannabinoids Screen Neg (NEGATIVE) Lactic Acid Level 1.2 mmol/L (0.4-2.0) Troponin I High Sensitivity 3 ng/L (</=34) B-Type Natriuretic Peptide 120.40 pg/mL (0-100) Other Laboratory Tests 06/03/24 04:17 Brief Hx & Hospital Course: Hospital course: A 59-year-old female with a history of hypertension, hyperlipidemia, HFpEF congestive heart failure, COPD, depression, coronary artery disease , cholecystectomy, , tonsillectomy, prior debrided left buttock wound Escher developed after the spider bite presented to the ED with chills, dysuria, nausea, and vomiting for the past week, along with burning pain during urination, suprapubic abdominal pain, and a chronic nonhealing wound with cellulitis and eschar on the left buttock from a spider bite, which has not improved despite antibiotics and wound care, leading to sepsis and debridement; she denies chest pain, palpitations, dizziness, and diarrhea. At admission noted Left buttock tenderness, wound with eschar, redness, swollen, tender, warmth. Patient has been found with ESBL in both urine and wound cultures. also patient is growing Enterococcus faecalis in own. Status post IV antibiotics, surgical debridement and pending wound VAC placement. Midline and wound VAC placed the patient would be getting IV antibiotics from home health from tomorrow. Medical conditions treated in hospital: # septic shock , Resolved # Acute complicated UTI # Hypercapnia along with hypoxia # chronic hypoxic respiratory failure # Possible obstructive sleep apnea # Chronic nonhealing left buttock wound cellulitis # chronic cigarette smoking # COPD with chronic hypoxic respiratory failure # CAREN likely vasomotor nephropathy, resolved # Mild hypokalemia # chronic Constipation # complex major depressive disorder # chronic Insomnia Discussed with Dr. Malik Code status: Full code. Care discussion needed 41 minutes of discussion. Discharge planning needed total 44 minutes of detailed discussion. Patient, and patient's family agreeable to the plan. Consults/Reason for consult Surgery Operations or Procedures RUN DATE: 05/28/24 PAGE 1 RUN TIME: 1114 [facility] [address] [place] [id number] Dona Hernandez M.D., Laboratory Computer Engineering Technologist - PATIENT: Homer WONGVOJENNA REN ACCT: [id number] LOC: ICU CENTRL U: [id number] AGE/SX: 59/F ROOM: [facility] RE05/24/[address]: MUNIRA KEYS RESIDENT : 1965 BED: A DIS: STATUS: ADM IN TLOC: - SPEC #: [id number] GENE: 05/25/24 STATUS: COMP REQ #: [id number] RECD: 05/25/24-[address]: LAUREANO GAN RESIDENT SOURCE: [facility] ENTR: 05/24/24-[address]: [facility] ORDERED: KRAIG dorsey/ JIMMIE - Procedure Result - Gram Stain Final RESULT Rare White Blood Cells Seen Rare Gram Negative Rods Wound Culture Final Report Many growth: Coagulase Negative Staphylococcus Susceptibility testing not routinely done on this isolate. Organism 1 Escherichia coli - ESBL QUANTITATION MANY GROWTH OF: Organism 2 Enterococcus faecalis QUANTITATION GROWTH FROM BROTH SUBCULTURE: NOTE:Escherichia coli - ESBL KNOWN ESBL, SEE [id number] CONTINUED ON NEXT PAGE RUN DATE: 11/05/24 PAGE 2 RUN TIME: 1114 [facility] [address] [place], [place] [address] Dona Hernandez M.D., Laboratory Computer Engineering Technologist - SPEC: [id number] PATIENT: MARVINDONA GELA [id number] (Continued) - - Procedure Result - Wound Culture Final (continued) EC ESBL ENTFAECAL M.I.C. RX M.I.C. RX --------- --- --------- --- Ampicillin >16 R <=2 S Ampicillin/Sulbactam 16/8 I Aztreonam >16 R Cefazolin >16 R >16 R Cefepime >16 R Ceftazidime >16 R Ceftriaxone >2 R Ciprofloxacin >2 R Clindamycin >4 R Daptomycin 1 S Ertapenem <=0.5 S Erythromycin >4 R Gentamicin >8 R Gentamicin Synergy Screen <=500 S Levofloxacin >4 R Linezolid 2 S Meropenem <=1 S Penicillin 2 S Rifampin <=1 S Tobramycin 4 S Trimethoprim/Sulfamethoxazole >2/38 R <=0.5/9.5 R Piperacillin/Tazobactam <=8 S Vancomycin 1 S Enterococcus faecalis: Positve Combo Panel 34 Streptomycin Synergy Screen S Gentamicin Synergy Screen S *CHRISTINE value in ug/ml END OF REPORT RUN DATE: 05/25/24 PAGE 1 RUN TIME: 1442 [facility] [address] [place] [address] Dona Hernandez M.D., Laboratory Computer Engineering Technologist - PATIENT: DONA WONG ACCT: [id number] LOC: ICU CENTRL U: [id number] AGE/SX: 59/F ROOM: [facility] RE05/24/[address]: MUNIRA KEYS RESIDENT : 1965 BED: A DIS: STATUS: ADM IN TLOC: - SPEC #: [id number] GENE: 05/25/24 STATUS: COMP REQ #: [id number] RECD: 05/25/[address] [facility] DR: LAUREANO GAN SOURCE: NOSE ENTR: 05/25/[address]: CECY MARX MD [facility]: ORDERED: MRSAS - Procedure Result - MRSA Screen Final RESULT NEGATIVE No MRSA detected. Methodology: DNA Amplification This is an automated qualitative in vitro diagnostic test for the direct detection of methicillin-resistant Staphylococcus aureus (MRSA) DNA from nasal swabs that utilizes real-time polymerase chain reaction (PCR) and flourogenic target-specific hybridization probes for the detection of the amplified DNA. END OF REPORT RUN DATE: 05/26/24 PAGE 1 RUN TIME: 1005 [facility] [address] [place], [place] [address] Dona Hernandez M.D., Laboratory Computer Engineering Technologist - PATIENT: DONA WONG ACCT: [id number] LOC: ICU CENTR U: [id number] AGE/SX: 59/F ROOM: [facility] RE05/24/[address]: MUNIRA KEYS RESIDENT : 1965 BED: A DIS: STATUS: ADM IN TLOC: - SPEC #: [id number] GENE: 05/24/24 STATUS: COMP REQ #: [id number] RECD: 05/24/24-[address]: DALIA ZHANG PAC SOURCE: VOID ENTR: 05/24/24-[address]: CECY MARX MD [facility]: ORDERED: [facility] COMMENTS: NO SPECIMEN IN LAB [address] - Procedure Result - Urine Bacterial Culture Final Organism 1 Escherichia coli - ESBL QUANTITATION >100,000 CFU/ML Escherichia coli - ESBL This organism is an Extended Spectrum Beta Lactamase (ESBL) coordinating producer exhibiting unusual resistance. Consultation with an infectious disease practitioner and/or pharmacist is recommended. Left message to Sarah Cho - Infection Control Department (ext. [phone]) at 1002 on 05/26/24 by [facility]. Called results to:NKECHI MATHIS RN at 05/26/24,1002 by [facility]. Verbal readback confirmed. EC ESBL M.I.C. RX --------- --- Ampicillin >16 R Ampicillin/Sulbactam 16/8 I Aztreonam >16 R Cefepime >16 R Ceftazidime 8 R Ceftriaxone >2 R Ciprofloxacin >2 R Ertapenem <=0.5 S Gentamicin >8 R Levofloxacin >4 R Meropenem <=1 S Nitrofurantoin <=32 S Tobramycin 4 S Trimethoprim/Sulfamethoxazole >2/38 R Piperacillin/Tazobactam <=8 S CONTINUED ON NEXT PAGE RUN DATE: 05/26/24 PAGE 2 RUN TIME: 1005 [facility] [address] [place], [place] [address] Dona Hernandez M.D., Laboratory Computer Engineering Technologist - SPEC: [id number] PATIENT: DONA WONG [id number] (Continued) - - Procedure Result - Urine Bacterial Culture Final (continued) *CHRISTINE value in ug/ml END OF REPORT RUN DATE: 05/29/24 PAGE 1 RUN TIME: 8194 [facility] [address] [place], [place] [address] Dona Hernandez M.D., Laboratory Computer Engineering Technologist - PATIENT: DONA WONG ACCT: [id number] LOC: ICU CENTR U: [id number] AGE/SX: 59/F ROOM: [facility] RE05/24/[address]: MUNIRA KEYS RESIDENT : 1965 BED: A DIS: STATUS: ADM IN TLOC: - SPEC #: [id number] GENE: 05/24/24 STATUS: COMP REQ #: [id number] RECD: 05/24/[address]: DALIA ZHANG [facility] SOURCE: BLOOD ENTR: 05/24/24-[address] [facility] [address]: CECY MARX MD [facility]: ORDERED: BCULT - Procedure Result - Blood Culture Final NO GROWTH AFTER 5 DAYS OF INCUBATION. NO GROWTH AFTER 5 DAYS OF INCUBATION. END OF REPORT [place] [address] Ph: [phone] DIAGNOSTIC IMAGING Diagnostic Imaging Report : [id number] Signed PATIENT: DONA WONG ACCT: [id number] UNIT: [id number] : 1965 LOC: ICU CENTRL ROOM / BED: [facility] A AGE / SEX: 59 / F ADM STATUS: ADM IN SERVICE 9 ORDERING PHYSICIAN: MUNIRA KEYS PROCEDURE(s): ABPLIV - CT AB PEL WITH IV CON ONLY REASON: [facility] ORDER NUMBER(s): [id number], ACCESSION NUMBER(s): [id number] CT CT AB PEL WITH IV CON ONLY INDICATION: : 59 [facility] DATE: 05/27/2024 12:37 PM COMPARISON: None RADIATION DOSE: CTDIvol: 22.05 mGy, DLP: 1313.52 mGy*cm PROCEDURE: Helical CT images were obtained of the abdomen and pelvis with IV contrast Sagittal and coronal reconstructions are provided. ORAL CONTRAST: None. ADDITIONAL IMAGES / REFORMATS: None All CT scans at this medical facility are performed using dose modulation techniques as appropriate to a performed exam including the following: Automated exposure control was utilized; adjustment of the MA and/or KV according to patient size; and use of iterative reconstruction technique. FINDINGS: LUNG BASE: Right basilar consolidation is seen. LIVER: Normal. GALLBLADDER AND BILIARY TREE: Cholecystectomy clips are seen. Mild extra-hepatic and CBD dilation. PANCREAS: Normal. SPLEEN: Punctate calcifications are noted. BOWEL: Mild to moderate colonic diverticulosis. Post surgical changes from partial gastrectomy. Normal appendix. ADRENALS: Normal. KIDNEYS AND URETER: Punctate nonobstructive left kidney stone. BLADDER: Mild asymmetrical thickening of the bladder wall. REPRODUCTIVE ORGANS: Normal. LYMPH NODES:No lymphadenopathy. PERITONEUM: No ascites or free air. No other fluid collection. VESSELS: Scattered atherosclerotic calcifications are noted. RETROPERITONEUM: Normal. ABDOMINAL WALL: Small umbilical hernia. BONES: Scattered osseous degenerative changes are noted. IMPRESSION: No acute intraabdominal abnormality. No focal fluid collection seen. Mild asymmetrical thickening of the left posterior/lateral bladder wall. Neoplasm is a consideration, consider cystoscopy. Mild to moderate colonic diverticulosis. Post surgical changes from partial gastrectomy. ATED BY: REMY DUARTE MD DICTATED DATE/TIME: 05/27/241309 SIGNED BY: REMY DUARTE MD SIGNED DATE/TIME: 05/27/241309 CC: [place] [address] Ph: [phone] DIAGNOSTIC IMAGING Diagnostic Imaging Report : [id number] Signed PATIENT: DONA WONG ACCT: [id number] UNIT: [id number] : 1965 LOC: ICU CENTRL ROOM / BED: [facility] / A AGE / SEX: 59 / F ADM STATUS: ADM IN SERVICE 103 ORDERING PHYSICIAN: XIMENA HOGUE MD PROCEDURE(s): HWOCT - HEAD WITHOUT CONTRAST REASON: Headaches ORDER NUMBER(s): [id number], ACCESSION NUMBER(s): [id number] EXAM: CT HEAD WITHOUT CONTRAST INDICATION: Headaches TECHNIQUE: CT of the head without intravenous contrast. Coronal and sagittal reformatted images are submitted. Radiation Dose : 1. Head: CT Dose: CTDI volume is 57.79 mGy. Dose-length product is 1023.19 mGy*cm The dose indicators for CT are the volume Computed Tomography (CT) Dose Index (CTDIvol) and the Dose Length Product (DLP), and are measured in units of mGy and mGy-cm, respectively. These indicators are not patient dose, but values generated from the CT scanner acquisition factors. The report includes radiation exposure data for exposures received during this examination. All CT scans at this medical facility are performed using dose modulation techniques as appropriate to a performed exam including the following: Automated exposure control was utilized; adjustment of the MA and/or KV according to patient size; and use of iterative reconstruction technique. COMPARISON: CT HEAD WITHOUT CONTRAST on DOS: 03/19/24 FINDINGS: There is no evidence of acute intracranial hemorrhage, extra-axial collection, mass effect, midline shift, herniation or hydrocephalus. The ventricles, sulci and cisterns are age appropriate. The rangel-white differentiation is intact. The visualized paranasal sinuses and mastoid air cells are clear. No depressed calvarial fracture. The surrounding soft tissues are unremarkable. IMPRESSION: 1. No evidence of acute intracranial abnormality. ATED BY: ASHLEY CARRILLO MD DICTATED DATE/TIME: 05/26/241305 SIGNED BY: ASHLEY CARRILLO MD SIGNED DATE/TIME: 05/26/241305 CC: [place] [address] Ph: [phone] DIAGNOSTIC IMAGING Diagnostic Imaging Report : [id number] Signed PATIENT: DONA WONG ACCT: [id number] UNIT: [id number] : 1965 LOC: ER ROOM / BED: / AGE / SEX: 59 / F ADM STATUS: REG ER SERVICE 35 ORDERING PHYSICIAN: LAUREANO GAN RESIDENT PROCEDURE(s): CXR1 - CHEST XRAY 1 VIEW REASON: sob ORDER NUMBER(s): [id number], ACCESSION NUMBER(s): [id number] CHEST RADIOGRAPH Indication:sob Technique: Single frontal view of the chest was obtained Comparison: XY CHEST PORTABLE on DOS: 03/19/24, XY CHEST PORTABLE on DOS: 06/21/23, XY CHEST XRAY 1 VIEW on DOS: 06/20/23 FINDINGS: Lines and Tubes: None Lungs: No focal consolidation. Pleura: No effusion. No pneumothorax. Cardiomediastinal contours: Unremarkable Bones: No acute osseous abnormality. IMPRESSION: No acute cardiopulmonary disease. ATED BY: DIYA CRUZ DO DICTATED DATE/TIME: 05/24/242108 SIGNED BY: DIYA CRUZ DO SIGNED DATE/TIME: 05/24/242108 CC: Condition at Discharge: Fair Final Diagnosis/Problems List Retaining# septic shock , Resolved # Acute complicated UTI # Hypercapnia along with hypoxia # chronic hypoxic respiratory failure # Possible obstructive sleep apnea # Chronic nonhealing left buttock wound cellulitis # chronic cigarette smoking # COPD with chronic hypoxic respiratory failure # CAREN likely vasomotor nephropathy, resolved # Mild hypokalemia # chronic Constipation # complex major depressive disorder # chronic Insomnia 1000 Discharge Disposition: Home Discharge Instruct/Medications Diet: Cardiac 2g Na,low cholest Activity: No Restrictions, As Tolerated Follow Up/Referral: PCP and surgery outpatient issa. Medications: As per SEP Discharge Statement: "Patient was advised to return to the ER or call 911 if any headaches, dizziness, shortness of breath, chest pain, abdominal pain, bleeding, fevers, or worsening of medical condition. Patient was counseled about treatment plan, medications, possible side effects, patientverbalized understanding. All questions were answered to the best of my ability. This discharge took greater then 30 minutes in planning, reviewing documentation, counseling the patient, and discussing with other team members." ASSESSMENT ASSESSMENT Assessment Date of Service: Jun 03, 2024 Billing Provider: СВЕТЛАНА MALIK MD Common Visit Codes: 72485-MBR/OBS DISCH DAY >30min Coding Comment Comment I saw and evaluated the patient. I reviewed the residents note and agree with findings and plan as documented in the residents note. MUNIRA KEYS RESIDENT Jun 03, 2024 07:56 СВЕТЛАНА MALIK MD Jun 03, 2024 21:12
[2024-06-03 08:00] VITALS: PULSE 62; RESP 17; O2SAT 98
[2024-06-03 09:00] VITALS: BP 112/69; PULSE 62; RESP 17; TEMP 97.8; O2SAT 92
[2024-06-03 12:12] VITALS: BP 112/69; PULSE 62; RESP 17; TEMP 97.8; O2SAT 92
[2024-06-03 13:00] VITALS: BP 93/57; PULSE 66; RESP 20; TEMP 97.9; O2SAT 92
== END 2024-06-03 12:59 | disposition home health service (06) | DRG 720 ==
LOC: ER 14:25 → OVERFLOW 20:36 → DOU IN ICU 05-25 03:45 → ICU CENTRL 05-25 05:57 → TELE-CENTR 05-30 22:18 → CENTRAL 05-31 23:02
PROVIDERS: ADMIT Student in an Organized Health Care Education/Training Program; ATTEND Student in an Organized Health Care Education/Training Program
PROC: 0JBM0ZZ Excision of Left Upper Leg Subcutaneous Tissue and Fascia, Open Approach (ICD-10-PCS; principal; 2024-05-29 10:58)
PROC: 05HA33Z Insertion of Infusion Device into Left Brachial Vein, Percutaneous Approach (ICD-10-PCS; 2024-06-01)
PROC: B54MZZA Ultrasonography of Right Upper Extremity Veins, Guidance (ICD-10-PCS; 2024-06-01)
DX: A41.9 Sepsis, unspecified organism (principal); J96.21 Acute and chronic respiratory failure with hypoxia; J69.0 Pneumonitis due to inhalation of food and vomit; N17.0 Acute kidney failure with tubular necrosis; R65.21 Severe sepsis with septic shock; G93.41 Metabolic encephalopathy; N39.0 Urinary tract infection, site not specified; K59.00 Constipation, unspecified; F32.9 Major depressive disorder, single episode, unspecified; F51.04 Psychophysiologic insomnia; I11.0 Hypertensive heart disease with heart failure; E87.6 Hypokalemia; L03.317 Cellulitis of buttock; J96.22 Acute and chronic respiratory failure with hypercapnia; I50.22 Chronic systolic (congestive) heart failure; N32.9 Bladder disorder, unspecified; Z16.12 Extended spectrum beta lactamase (ESBL) resistance; Z87.440 Personal history of urinary (tract) infections; Z80.49 Family history of malignant neoplasm of other genital organs; Z82.5 Family history of asthma and other chronic lower respiratory diseases; Z82.49 Family history of ischemic heart disease and other diseases of the circulatory system; Z81.8 Family history of other mental and behavioral disorders; Z79.51 Long term (current) use of inhaled steroids; Z79.899 Other long term (current) drug therapy; Z88.5 Allergy status to narcotic agent; Z88.8 Allergy status to other drugs, medicaments and biological substances; Z98.891 History of uterine scar from previous surgery; J18.9 Pneumonia, unspecified organism; J44.0 Chronic obstructive pulmonary disease with (acute) lower respiratory infection
CPT/HCPCS: 36415; 36600; 70450; 71045; 74177; 80048; 80053; 80202; 80307; 81001; 82306; 82550; 82565; 82607; 82805; 83036; 83605; 83880; 84443; 84484; 85025; 85610; 85730; 87040; 87077; 87081; 87086; 87088; 87186; 87205; 93005; 97110; 97116; 97163; 97530; A4565; G0378; J0690; J1100; J1335; J1885; J2003; J2185; J2250; J2405; J2470; J2704; J3490; Q0162

== ENCOUNTER 2024-06-18 09:14 | Inpatient (IN) | payer MEDICAID ==
[~2024-06-18] VITALS: Ht 172.7 cm; Wt 102.3 kg
[~2024-06-18 09:14] MED LIST changes: -ALB5IS NEB; +ALBU108A5 IN; -CARV-216 PO; -CEPH250C PO; -DOXY-286 PO; -GAB100C PO; -MAGN241.4 PO; -QUET50TA PO; -UMEC1AER IN
--- NOTE | 2024-06-18 09:31 | ED.PDOC ---
General HPI Comments 59-year-old female with PMHx CHF, COPD, HTN presents with a chief complaint of dysuria and pelvic cramping. Patient states that her pain is localized to her suprapubic/pelvic region, describes as cramping, and it is non-radiating. Patient mentions that she experiences a burning sensation when urinating. Patient recently was in the hospital for a brown recluse bite and had a midline placed for at-home antibiotics. Patient is currently receiving two different antibiotics for the bite. Patient denies any other urinary symptoms. Chief Complaint: Urinary Time Seen by MD: 09:20 Primary Care Provider: alejandro Reviewed notes: Medications, Allergies Allergies: Coded Allergies: Codeine (Unverified Allergy, Unknown, 06/21/23) Influenza Vaccines (Unverified Allergy, Unknown, 06/21/23) Pneumococcal Vaccines (Unverified Allergy, Unknown, 06/21/23) Home Meds Active Scripts Spironolactone (Aldactone) 25 Mg Tab, 25 MG PO BIDD, #60 TAB Prov:MELISSA MCNALLY MD 07/11/22 Ipratropium Rydal (Ipratropium Rydal) 0.02 % Shanique, 0.5 MG NEB Q6HPRN PRN, #30 ML Prov:MELISSA MCNALLY MD 07/11/22 Gemfibrozil (Gemfibrozil) 600 Mg Tab, 600 MG PO BID, #60 TAB Prov:MELISSA MCNALLY MD 07/11/22 Duloxetine Hydrochloride (Duloxetine Hydrochloride) 30 Mg Cap, 60 MG PO DAILY, #60 CAP Prov:MELISSA MCNALLY MD 07/11/22 Reported Medications Tamsulosin Hcl (Tamsulosin Hcl) 0.4 Mg Cap, 1 CAP PO QPM for 30 Days, #30 05/30/24 Lidocaine (Lidocaine) 5 % Pad, 1-2 PAD EX DAILY for 60 Days, #10 05/30/24 Folic Acid (Folic Acid) 1 Mg Tab, 1 TAB PO DAILY for 30 Days, #30 05/30/24 Dicyclomine Hcl (Dicyclomine Hcl) 20 Mg Tab, 1 TAB PO TID for 30 Days, #90 05/30/24 Cholecalciferol (Vitamin D-3) 5,000 Unit Cap, 1 CAP PO DAILY for 90 Days, #90 05/30/24 Albuterol Sulfate (Albuterol Sulfate Hfa) 108 Mcg/Act Aer, 2 PUFF IN Q4HR PRN for 33 Days, #17 05/30/24 Omeprazole (Omeprazole Dr) 40 Mg Cap, 1 CAP PO DAILY for 30 Days, #30 05/30/24 Fenofibrate (Fenofibrate) 54 Mg Tab, 48 MG PO DAILY for 30 Days, #30 05/30/24 Ifafyfuyro-Hqvgxdmuglrmag-Cppr (Breztri Aerosphere 160-9-4.8 Mcg/Act) 1 Aer Aer, 2 PUFF IN BID for 30 Days, #10.7 05/30/24 Albuterol Sulfate (Albuterol Sulfate) 0.083 % Neb, 1 VIAL NEB Q6HR for 12 Days, #150 05/30/24 Diclofenac Sodium (Topical) (Voltaren Arthritis Pain) 1 % Gel, 1-2 GRAMS EX BID PRN for 25 Days, #100 APPLY 1-2 GRAMS TO AFFECTED AREA TWICE A DAY NEEDED. 05/30/24 Magnesium Oxide (MAGNESIUM OXIDE) 400 Mg Tab, 1 TAB PO DAILY for 30 Days, #30 05/30/24 Carvedilol (Carvedilol) 12.5 Mg Tab, 0.5 TAB PO BID for 90 Days, #90 05/30/24 Gabapentin (Gabapentin) 400 Mg Cap, 1 CAP PO QID for 30 Days, #120 03/20/24 Quetiapine Fumerate (QUETIAPINE FUMARATE) 400 Mg Tab, 1 TAB PO HS 03/20/24 Pregabalin (Pregabalin) 150 Mg Cap, 1 CAP PO TID for 30 Days, #90 03/20/24 Zolpidem Tartrate (Zolpidem Tartrate) 10 Mg Tab, 1 TAB PO QHSP PRN for FOR INSOMNIA 03/20/24 Furosemide (Furosemide) 40 Mg Tab, 1 TAB PO BID 03/20/24 Hydrocodone-Acetaminophen (Hydrocodone/Acetaminophen 10-325 mg) 1 Tab Tab, 1 TAB PO Q4-6HR PRN for 30 Days, #160 07/08/22 Temazepam (Temazepam) 30 Mg Cap, 1 CAP PO HS, #30 CAP 1 Refill 10/18/17 Information Source: Patient Mode of Arrival: Ambulatory Severity: Moderate Inability to void: None Timing: Days Duration: Since onset Has not urinated for: Minutes Prehospital treatment: None Onset: Spontaneous Symptoms: Dysuria Location: Suprapubic Past Medical History PAST MEDICAL HISTORY: Angina, Anxiety, CHF, COPD, Depression, High Lipids, HTN Surgical History: Cholecystectomy, , Tonsillectomy RADIO SCRIPT WRITER History: No Pertinent RADIO SCRIPT WRITER History Family History Family History: Family hx of Cancer, Family hx of heart pedro pablo, Family hx of HTN Family History (Other): CHF Social History Smoker: Cigarettes Alcohol: Denies ETOH Use Drugs: Denies Drug Use Lives In: Home Constitutional: denies: chills, diaphoresis, fatigue, fever, malaise, sweats, weakness, others EENTM: denies: blurred vision, double vision, ear bleeding, ear discharge, ear drainage, ear pain, ear ringing, eye pain, eye redness, hearing loss, mouth pain, mouth swelling, nasal discharge, nose bleeding, nose congestion, nose pain, photophobia, tearing, throat pain, throat swelling, voice changes, others Respiratory: denies: cough, hemoptysis, orthopnea, SOB at rest, shortness of breath, SOB with excertion, stridor, wheezing, others Cardiovascular: denies: chest pain, dizzy spells, diaphoresis, Dyspnea on exertion, edema, irregular heart beat, left arm pain, lightheadedness, palpitations, PND, syncope, others Gastrointestinal: denies: abdomen distended, abdominal pain, blood streaked bowels, constipated, diarrhea, dysphagia, difficulty swallowing, hematemesis, melena, nausea, poor appetite, poor fluid intake, rectal bleeding, rectal pain, vomiting, others Genitourinary: reports: dysuria, pain; denies: abnormal vagina bleeding, burning, dyspareunia, flank pain, frequency, hematuria, incontinence, , vagina discharge, urgency, others Neurological: denies: dizziness, fainting, headache, left sided numbness, left sided weakness, numbness, paresthesia, pre-existing deficit, right sided numbness, right sided weakness, seizure, speech problems, tingling, tremors, weakness, others Musculoskeletal: denies: back pain, gout, joint pain, joint swelling, muscle pain, muscle stiffness, neck pain, others Integumetry: denies: bruises, change in color, change in hair/nails, dryness, laceration, lesions, lumps, rash, wounds, others Allergic/Immunocompromised: denies: Difficulty Healing, Frequent Infections, Hives, Itching, others Hematologic/Lymphatic: denies: anemia, blood clots, easy bleeding, easy bruising, swollen glands, others Endocrine: denies: excessive hunger, excessive sweating, excessive thirst, excessive urination, flushing, intolerance to cold, intolerance to heat, unexplained weight gain, unexplained weight loss, others Psychiatric: denies: anxiety, bipolar disorder, depression, hopeless, panic disorder, schizophrenia, sleepless, suicidal, others All Other Systems: Reviewed and Negative Physical Exam General Appearance: No Apparent Distress, Normal HEENT: Normal ENT Inspection, Pharynx Normal, TMs Normal Neck: Full Range of Motion, Non-Tender, Normal, Normal Inspection Respiratory: Chest Non-Tender, Lungs Clear, No Accessory Muscle Use, No Respiratory Distress, Normal Breath Sounds Cardiovascular: No Edema, No JVD, No Murmur, No Gallop, Normal Peripheral Pulses, Regular Rate/Rhythm Breast Exam: Deferred Gastrointestinal: No Organomegaly, Non Tender, No Pulsatile Mass, Normal Bowel Sounds, Soft Genitalia: Deferred Pelvic: Deferred Rectal: Deferred Extremities: No calf tenderness, Normal capillary refill, Normal inspection, Normal range of motion, Non-tender, No pedal edema Musculoskeletal : Apperance: Normal Neurologic: Alert, rn burn II-XII nml as Tested, No Motor Deficits, Normal Affect, Normal Mood, No Sensory Deficits Cerebellar Function: Normal Reflexes: Normal Skin: Dry, Normal Color, Warm Lymphatic: No Adenopathy Was a procedure done? Was a procedure done?: No Differential Diagnosis Kidney stone (Female): N/A Kidney stone (Male): N/A Penile/Scrotal: N/A Urinary Problem (Male): N/A Urinary Problem (Female): Pyelonephritis, Urinary retention, Urolithiasis, UTI X-Ray, Labs, Meds, VS Vital Signs Date Time Temp Pulse Resp B/P (MAP) Pulse Ox O2 Delivery O2 Flow Rate FiO2 06/18/24 10:04 97.6 71 16 113/56 (75) 93 97.6 06/18/24 10:04 71 16 93 Room Air 06/18/24 09:18 98.0 78 20 109/66 (80) 95 Lab Test 06/18/24 10:30 06/18/24 09:43 06/18/24 09:21 Range/Units Troponin I High Sensitivity < 3 L < 3 L </=34 ng/L White Blood Count 13.7 H 4.4-10.8 10^3/uL Red Blood Count 4.04 4.0-5.20 10^6/uL Hemoglobin 13.4 12.2-16.2 g/dL Hematocrit 39.7 36.0-46.0 % Mean Corpuscular Volume 98.3 80.0-100.0 fL Mean Corpuscular Hemoglobin 33.3 H 28.0-32.0 pg Mean Corpuscular Hemoglobin Concent 33.9 32.0-36.0 g/dL Red Cell Distribution Width 15.0 H 11.8-14.3 % Platelet Count 265 140-450 10^3/uL Mean Platelet Volume 8.9 6.9-10.8 fL Neutrophils (%) (Auto) 62.7 37.0-80.0 % Lymphocytes (%) (Auto) 21.5 10.0-50.0 % Monocytes (%) (Auto) 6.8 0.0-12.0 % Eosinophils (%) (Auto) 8.4 H 0.0-7.0 % Basophils (%) (Auto) 0.6 0.0-2.0 % Neutrophils # (Auto) 8.6 1.6-8.6 10 ^3/uL Lymphocytes # (Auto) 2.9 0.4-5.4 10 ^3/uL Monocytes # (Auto) 0.9 0-1.3 10 ^3/uL Eosinophils # (Auto) 1.2 H 0-0.8 10 ^3/uL Basophils # (Auto) 0.1 0-0.2 10 ^3/uL Nucleated Red Blood Cells 0.0 % Sodium Level 141 136-145 mmol/L Potassium Level 4.5 3.5-5.1 mmol/L Chloride Level 109 H 98-107 mmol/L Carbon Dioxide Level 25 20-31 mmol/L Anion Gap 7 5-15 Blood Urea Nitrogen 23 9-23 mg/dL Creatinine 1.04 H 0.550-1.02 mg/dL Glomerular Filtration Rate Calc 62 >90 mL/min BUN/Creatinine Ratio 22.1 H 10.0-20.0 Serum Glucose 80 74-106 mg/dL Lactic Acid Level 0.9 0.4-2.0 mmol/L Calcium Level 9.9 8.7-10.4 mg/dL Urine Color Yellow Yellow Urine Clarity Turbid H Clear Urine pH 5.0 5.0-9.0 Urine Specific [place] 1.008 1.001-1.035 Urine Protein Negative Negative Urine Ketones Negative Negative Urine Blood Trace H Negative /uL Urine Nitrite Negative Negative Urine Bilirubin Negative Negative Urine Urobilinogen Normal Negative mg/dL Urine Leukocyte Esterase 3+ Negative /uL Urine RBC 7 0 - 4 /hpf Urine WBC 705 0 - 5 /hpf Urine WBC Clumps Present None Seen /hpf Urine Squamous Epithelial Cells Few <5 /hpf Urine Bacteria Few H None Seen /hpf Urine Mucus Few None Seen Urine Glucose Normal Normal mg/dL Time of 1ST Reevaluation: 09:50 Reevaluation 1ST: Unchanged Patient Education/Counseling: Diagnosis, Treatment, Prognosis Family Education/Counseling: No Family Present Departure 1 Departure Time of Disposition: 12:13 (Patient with a urinary tract infection that failed outpatient antibiotics. We will admit patient for further workup.) Impression: Primary Impression: Pyelonephritis Disposition: ADMITTED INPATIENT Admit to: Med Surg Condition: Serious Critical Care Note Critical Care Time?: No Stability Stability form required: No I personally scribed for KAYLYNN RENNER MD ([email or web address]) on 06/18/24 at 09:31. Electronically submitted by Hayes Patiño ([email or web address]). KAYLYNN RENNER MD Jun 18, 2024 09:31
--- NOTE | 2024-06-18 10:11 | DVH ---
CHEST RADIOGRAPH Indication: weakness Technique: Single frontal view of the chest was obtained COMPARISON: XY CHEST XRAY 1 VIEW on DOS: 05/24/24, XY CHEST PORTABLE on DOS: 03/19/24, XY CHEST PORTABL E on DOS: 06/21/23 FINDINGS: Lines and Tubes: None Lungs: Bibasilar subsegmental atelectasis. Pleura: No effusion. No pneumothorax. Cardiomediastinal contours: Unremarkable Bones: Unremarkable IMPRESSION: Bibasilar subsegmental atelectasis.
[2024-06-18 10:26] LABS: Basophils # (auto) 0.1 10 ^3/uL (0-0.2); Basophils % (auto) 0.6 % (0.0-2.0); Eosinophils # (auto) 1.2 10 ^3/uL (0-0.8); Eosinophils % (auto) 8.4 % (0.0-7.0); Hematocrit 39.7 % (36.0-46.0); Hemoglobin 13.4 g/dL (12.2-16.2); Lymphocytes # (auto) 2.9 10 ^3/uL (0.4-5.4); Lymphocytes % (auto) 21.5 % (10.0-50.0); Mean Corpuscular Hemoglobin 33.3 pg (28.0-32.0); Mean Corpuscular Hgb Conc. 33.9 g/dL (32.0-36.0); Mean Corpuscular Volume 98.3 fL (80.0-100.0); Monocytes # (auto) 0.9 10 ^3/uL (0-1.3); Monocytes % (auto) 6.8 % (0.0-12.0); Neutrophils # (auto) 8.6 10 ^3/uL (1.6-8.6); Neutrophils % (auto) 62.7 % (37.0-80.0); Platelet Count (auto) 265 10^3/uL (140-450); Red Blood Cells 4.04 10^6/uL (4.0-5.20); White Blood Cell 13.7 10^3/uL (4.4-10.8)
[2024-06-18 10:28] LABS: Anion Gap 7 (5-15); Carbon Dioxide 25 mmol/L (20-31); Chloride 109 mmol/L (98-107); Potassium 4.5 mmol/L (3.5-5.1); Sodium 141 mmol/L (136-145)
[2024-06-18 10:29] LABS: Calcium 9.9 mg/dL (8.7-10.4)
[2024-06-18 10:34] LABS: BUN/Creatinine Ratio 22.1 (10.0-20.0); Blood Urea Nitrogen 23 mg/dL (9-23); Glucose 80 mg/dL (74-106)
[2024-06-18 10:34] LABS: Urine Bacteria FEW /hpf (None Seen); Urine Blood TRACE /uL (Negative); Urine Clarity Turbid (Clear); Urine Color Yellow (Yellow); Urine Mucus FEW (None Seen); Urine Protein, UAD Negative (Negative); Urine Specific Gravity 1.008 (1.001-1.035); Urine Urobilinogen Normal (Negative); Urine WBC 705 /hpf (0 - 5); Urine WBC Clumps PRESENT /hpf (None Seen)
[2024-06-18] MEDS ORDERED: CEFEPIME 2GM/50ML NS 50 ML IV ONE (12:15)
[2024-06-18] MEDS: CEFEPIME 2GM/50ML NS 50 ML IV ONE (12:44)
[2024-06-18] MEDS: VANCOMYCIN 1GM/250ML KIT 200 ML IV ONE (12:44)
[2024-06-18] MEDS ORDERED: IPRATROPIUM BROM 0.5 MG/2.5ML INH SOL NEB PRN (13:45)
[2024-06-18] MEDS ORDERED: PATIENTS OWN MEDICATION (Albuterol Sulfate 1 VIAL) NEB SCH (13:45)
[2024-06-18] MEDS ORDERED: PATIENTS OWN MEDICATION (Zolpidem Tartrate 1 TAB) PO PRN (13:45)
[2024-06-18] MEDS ORDERED: LORazepam 0.5 MG TAB PO PRN (14:00)
[2024-06-18] MEDS ORDERED: TEMAZEPAM 15 MG CAP PO PRN (14:00)
[2024-06-18] MEDS ORDERED: MAALOX PLUS or MAALOX 30 ML PO PRN (14:00)
[2024-06-18] MEDS ORDERED: PATIENTS OWN MEDICATION (Pregabalin 1 CAP) PO SCH (14:00)
[2024-06-18] MEDS ORDERED: ACETAMINOPHEN 325 MG TAB PO PRN (14:00)
[2024-06-18 14:08] VITALS: O2SAT 96
--- NOTE | 2024-06-18 14:13 | DVHHP2 ---
History of Present Illness Reason for Visit: Abdominal and flank pain History of Present Illness 59-year-old patient with a history of CHF COPD hypertension dysuria and hyper lipidemia patient came to the ED for evaluation of complaints of flank pain on and off patient states that she has had a UTI which she was getting treated outpatient from her PCP patient was previously on antibiotics and noted that she was still starting to feel worse worsening pain fevers chills continued weakness patient on evaluation was shown to have severe signs of infection within the urine and was recommended for inpatient treatment and management for a UTI secondary to failure of outpatient management Cardiovascular: CAD, CHF, HTN Pulmonary: COPD Endocrine: Diabetes Review of Systems Constitutional: Yes: Weakness; No: Fever, Chills, Sweats, Malaise, Other Eyes: No: Pain, Vision change, Conjunctivae inflammation, Eyelid inflammation, Other, Redness ENT: No: Ear pain, Ear discharge, Nose pain, Nose discharge, Nose congestion, Mouth pain, Mouth swelling, Throat pain, Throat swelling, Other Respiratory: Cough, Shortness of breath; No: Dry, SOB with excertion, Wheezing, Hemoptysis, Pleuritic Pain, Sputum, Wheezing, Other Cardiovascular: No: Chest Pain, Palpitations, Orthopnea, Paroxysmal Noc. Dyspnea, Edema, Lt Headedness, Other Gastrointestinal: Nausea, Vomiting, Abdominal Pain; No: Diarrhea, Constipation, Melena, Hematochezia, Other Genitourinary: No Dysuria, No Frequency, No Incontinence, No Hematuria, No Retention, No Other Musculoskeletal: No: other, neck pain, shoulder pain, arm pain, back pain, hand pain, leg pain, foot pain Skin: No: Rash, Lesions, Jaundice, Bruising, Other Neurological: No: Weakness, Numbness, Incoordination, Change in speech, Confusion, Seizures, Other Allergies: Coded Allergies: Codeine (Unverified Allergy, Unknown, 06/21/23) Influenza Vaccines (Unverified Allergy, Unknown, 06/21/23) Pneumococcal Vaccines (Unverified Allergy, Unknown, 06/21/23) Exam Vital Signs Vital Signs Date Time Temp Pulse Resp B/P (MAP) Pulse Ox O2 Delivery O2 Flow Rate FiO2 06/18/24 12:43 73 16 129/67 (87) 98 06/18/24 10:04 97.6 97.6 06/18/24 10:04 Room Air General Appearance: Alert, Oriented X3, moderate distress HEENT: Atraumatic, PERRLA Respiratory: Clear to auscultation, Normal air movement Cardiovascular: Regular rate, Normal S1, Normal S2 Abdominal: Normal bowel sounds, Soft Extremities: No clubbing, No cyanosis Skin: No rashes, No breakdown Neuro: Normal gait, Normal speech Psych/Mental Status: Mood NL Labs/Xrays Labs Test 06/18/24 12:57 06/18/24 09:43 06/18/24 09:21 Range/Units Lactic Acid Level 1.9 0.4-2.0 mmol/L Troponin I High Sensitivity < 3 L </=34 ng/L White Blood Count 13.7 H 4.4-10.8 10^3/uL Red Blood Count 4.04 4.0-5.20 10^6/uL Hemoglobin 13.4 12.2-16.2 g/dL Hematocrit 39.7 36.0-46.0 % Mean Corpuscular Volume 98.3 80.0-100.0 fL Mean Corpuscular Hemoglobin 33.3 H 28.0-32.0 pg Mean Corpuscular Hemoglobin Concent 33.9 32.0-36.0 g/dL Red Cell Distribution Width 15.0 H 11.8-14.3 % Platelet Count 265 140-450 10^3/uL Mean Platelet Volume 8.9 6.9-10.8 fL Neutrophils (%) (Auto) 62.7 37.0-80.0 % Lymphocytes (%) (Auto) 21.5 10.0-50.0 % Monocytes (%) (Auto) 6.8 0.0-12.0 % Eosinophils (%) (Auto) 8.4 H 0.0-7.0 % Basophils (%) (Auto) 0.6 0.0-2.0 % Neutrophils # (Auto) 8.6 1.6-8.6 10 ^3/uL Lymphocytes # (Auto) 2.9 0.4-5.4 10 ^3/uL Monocytes # (Auto) 0.9 0-1.3 10 ^3/uL Eosinophils # (Auto) 1.2 H 0-0.8 10 ^3/uL Basophils # (Auto) 0.1 0-0.2 10 ^3/uL Nucleated Red Blood Cells 0.0 % Sodium Level 141 136-145 mmol/L Potassium Level 4.5 3.5-5.1 mmol/L Chloride Level 109 H 98-107 mmol/L Carbon Dioxide Level 25 20-31 mmol/L Anion Gap 7 5-15 Blood Urea Nitrogen 23 9-23 mg/dL Creatinine 1.04 H 0.550-1.02 mg/dL Glomerular Filtration Rate Calc 62 >90 mL/min BUN/Creatinine Ratio 22.1 H 10.0-20.0 Serum Glucose 80 74-106 mg/dL Calcium Level 9.9 8.7-10.4 mg/dL Urine Color Yellow Yellow Urine Clarity Turbid H Clear Urine pH 5.0 5.0-9.0 Urine Specific [place] 1.008 1.001-1.035 Urine Protein Negative Negative Urine Ketones Negative Negative Urine Blood Trace H Negative /uL Urine Nitrite Negative Negative Urine Bilirubin Negative Negative Urine Urobilinogen Normal Negative mg/dL Urine Leukocyte Esterase 3+ Negative /uL Urine RBC 7 0 - 4 /hpf Urine WBC 705 0 - 5 /hpf Urine WBC Clumps Present None Seen /hpf Urine Squamous Epithelial Cells Few <5 /hpf Urine Bacteria Few H None Seen /hpf Urine Mucus Few None Seen Urine Glucose Normal Normal mg/dL Assessment/Plan Assessment/Plan Admit to med surgery Suspected pyelonephritis UTI shown with turbid clarity elevated bacteria IV antibiotics ceftriaxone to be started IV hydration Patient with flank pain failed antibiotics treatment outpatient Continue with IV antibiotics monitor labs History of COPD Continue with home medications Including p.r.n. breathing treatments to make sure that the COPD is well controlled No acute signs of exacerbation at this time History of hyperlipidemia, hypertension, and CHF No acute signs of CHF or fluid load exacerbation at this point in time We will continue with home medications to maintain patient's baseline equilibrium Monitor for signs of fluid overload No acute respiratory distress at this point in time we will continue to treat patient with his current medications from home Plan discussed with: Patient My Orders Orders - DANA LI MD Procedure Category Date Status Time Ceftriaxone 1gm/50ml PHA 06/19/24 Logged D5w (Rocephin) 10:00 Carvedilol Tablet PHA 06/18/24 Logged (Coreg Tablet) 22:00 Duloxetine Hcl PHA 06/19/24 Logged Capsule (Cymbalta 10:00 Furosemide Tablet PHA 06/18/24 Logged (Lasix Tablet) 22:00 Gabapentin Capsule PHA 06/18/24 Logged (Neurontin Capsule) 18:00 Gemfibrozil Tablet PHA 06/18/24 Logged (Lopid Tablet) 22:00 Ipratropium Medneb PHA 06/18/24 Logged (Atrovent Medneb) 13:45 Spironolactone PHA 06/18/24 Logged (Aldactone) 18:00 Tamsulosin PHA 06/18/24 Logged Hydrochloride (Flomax) 18:00 (Nf) Albuterol Sulfate PHA 06/18/24 Logged 13:45 (NF) PHA 06/18/24 Logged Ombxddggss-Pikifsfxuakmuk-Azhd 22:00 (Nf) Folic Acid PHA 06/19/24 Logged 10:00 (Nf) Magnesium Oxide PHA 06/19/24 Logged 10:00 (Nf) Omeprazole PHA 06/19/24 Logged (Omeprazole Dr) 10:00 (Nf) Pregabalin PHA 06/18/24 Logged 14:00 (Nf) Quetiapine PHA 06/18/24 Logged Fumerate (Quetiapine 22:00 (Nf) Temazepam PHA 06/18/24 Logged 22:00 (Nf) Zolpidem Tartrate PHA 06/18/24 Logged 13:45 Cont Med Neb Intial Tx RT 06/18/24 Logged 13:36 Admit ADMIT 06/18/24 Transmitted 13:56 Code Status CODE 06/18/24 Transmitted 13:56 Vital Signs [facility] 06/18/24 In Process 13:56 Review Orders With [facility] 06/18/24 In Process Adm. 13:56 Lorazepam Tablet PHA 06/18/24 Logged (Ativan Tablet) 14:00 Alum & Mag PHA 06/18/24 Logged Hydrox-Simethicone 14:00 Docusate Sodium PHA 06/18/24 Logged Capsule (Colace 14:00 Acetaminophen Tablet PHA 06/18/24 Logged (Tylenol Tablet) 14:00 Temazepam (Restoril) PHA 06/18/24 Logged 14:00 Notify Of Changes [facility] 06/18/24 In Process From Base 13:56 Advance Directive [facility] 06/18/24 In Process 13:56 Basic Metabolic Panel LAB 06/19/24 Verified 04:00 Complete Blood Count LAB 06/19/24 Verified 04:00 Patient Condition ORDERS 06/18/24 Transmitted 13:56 Allergies [facility] 06/18/24 In Process 13:56 Ondansetron Hcl PHA 06/18/24 Logged (Help Scoutdario) 14:00 Notify Of Changes [facility] 06/18/24 In Process From Base 13:56 Oxygen By Nasal RT 06/18/24 Transmitted Cannula 13:56 Problem List: (1) UTI (urinary tract infection) (2) Hypotension (3) Acute renal injury (4) Pyelonephritis Date of Service: Jun 18, 2024 Billing Provider: DANA LI MD Common Visit Codes: [id number] INP/OBS CARE (HIGH) DANA LI MD Jun 18, 2024 14:13
[2024-06-18] MEDS: ONDANSETRON HCL 4 MG/2 ML VIAL IV ONE (14:20)
[2024-06-18] MEDS: MORPHINE SULFATE 4 MG/ML SYR/VIAL IV ONE (14:22)
[2024-06-18] MEDS ORDERED: ALBUTEROL SULF HFA 90MCG INH 200DOSE IN SCH (15:30)
[2024-06-18] MEDS: SPIRONOLACTONE 25 MG TAB PO SCH (18:41)
[2024-06-18] MEDS: TAMSULOSIN HYDROCHLORIDE 0.4 MG CAP PO SCH (18:41)
[2024-06-18] MEDS: GABAPENTIN 400 MG CAP PO SCH (18:42)
[2024-06-18 18:56] VITALS: O2SAT 92
[2024-06-18 19:30] VITALS: PULSE 75; RESP 22; O2SAT 100
[2024-06-18] MEDS: ONDANSETRON HCL 4 MG/2 ML VIAL IV PRN (20:48)
[2024-06-18] MEDS: FUROSEMIDE 40 MG TAB PO SCH (22:00)
[2024-06-18] MEDS ORDERED: PATIENTS OWN MEDICATION (Quetiapine Fumerate (Quetiapine Fumarate) 1 TAB) PO SCH (22:00)
[2024-06-18] MEDS: CARVEDILOL 12.5 MG TAB PO SCH (22:00)
[2024-06-18] MEDS: QUEtiapine FUMARATE 100 MG TAB PO SCH (22:14)
[2024-06-18] MEDS: GEMFIBROZIL 600 MG TAB PO SCH (22:22)
[2024-06-18] MEDS: PREGABALIN CAPSULE 75 MG CAP PO SCH (22:23)
[2024-06-18] MEDS: TEMAZEPAM PO SCH (22:28)
[2024-06-18 22:41] VITALS: BP 111/71; PULSE 75; RESP 22; TEMP 98.1; O2SAT 93
[2024-06-18] MEDS: BREZTRI AEROSPHERE IN SCH (23:00)
[2024-06-19] MEDS: HYDROcodone-ACET 5/325MG TAB PO PRN (00:15)
[2024-06-19 04:51] LABS: Basophils # (auto) 0.1 10 ^3/uL (0-0.2); Basophils % (auto) 1.1 % (0.0-2.0); Eosinophils % (auto) 11.3 % (0.0-7.0); Hemoglobin 12.8 g/dL (12.2-16.2); Lymphocytes # (auto) 3.1 10 ^3/uL (0.4-5.4); Lymphocytes % (auto) 36.3 % (10.0-50.0); Mean Corpuscular Hemoglobin 33.3 pg (28.0-32.0); Mean Corpuscular Hgb Conc. 33.8 g/dL (32.0-36.0); Mean Corpuscular Volume 98.5 fL (80.0-100.0); Monocytes # (auto) 0.6 10 ^3/uL (0-1.3); Monocytes % (auto) 7.5 % (0.0-12.0); Neutrophils # (auto) 3.7 10 ^3/uL (1.6-8.6); Neutrophils % (auto) 43.8 % (37.0-80.0); Nucleated Red Blood Cells % 0.1 %; Platelet Count (auto) 210 10^3/uL (140-450); Red Blood Cells 3.85 10^6/uL (4.0-5.20); Red Cell Distribution Width 14.8 % (11.8-14.3); White Blood Cell 8.5 10^3/uL (4.4-10.8)
[2024-06-19 05:02] LABS: Chloride 110 mmol/L (98-107); Potassium 4.2 mmol/L (3.5-5.1); Sodium 142 mmol/L (136-145)
[2024-06-19 05:03] LABS: Anion Gap 9 (5-15); Carbon Dioxide 23 mmol/L (20-31)
[2024-06-19 05:04] LABS: Calcium 9.6 mg/dL (8.7-10.4)
[2024-06-19 05:09] LABS: BUN/Creatinine Ratio 23.5 (10.0-20.0); Blood Urea Nitrogen 27 mg/dL (9-23); Glucose 75 mg/dL (74-106)
[2024-06-19 07:23] VITALS: PULSE 72; RESP 17; O2SAT 96
[2024-06-19] MEDS ORDERED: PATIENTS OWN MEDICATION (Folic Acid 1 TAB) PO SCH (10:00)
[2024-06-19] MEDS ORDERED: PATIENTS OWN MEDICATION (Omeprazole (Omeprazole Dr) 1 CAP) PO SCH (10:00)
[2024-06-19] MEDS ORDERED: PATIENTS OWN MEDICATION (Magnesium Oxide 1 TAB) PO SCH (10:00)
[2024-06-19] MEDS ORDERED: cefTRIAXone 1GM/50ML D5W 50 ML IV SCH (10:00)
[2024-06-19 10:49] LABS: Lactic Acid w/Reflex 2.4 mmol/L (0.4-2.0)
[2024-06-19] MEDS: DULoxetine HCL 30 MG CAP PO SCH (11:05)
[2024-06-19] MEDS: PANTOPRAZOLE 40 MG TAB PO SCH (11:05)
[2024-06-19] MEDS: FOLIC ACID 1 MG TAB PO SCH (11:05)
[2024-06-19] MEDS: MAGNESIUM OXIDE 400 MG TAB PO SCH (11:07)
[2024-06-19] MEDS: MEROPENEM 1GM IVPB 50 ML IV ONE (11:09)
--- NOTE | 2024-06-19 11:51 | DVHPNRES ---
Progress Note Date Seen: Jun 19, 2024 Resident Creating Document: ALISIA BARBER RESIDENT Subjective Review of Systems This is 59 year-old female with pmxh CHF, Carotid stenosis, COPD, gout, neuropathy and recent brown recluse spider Objective vital signs Vital Sign Date Time Temp Pulse Resp B/P (MAP) Pulse Ox O2 Delivery O2 Flow Rate FiO2 06/19/24 11:00 78 12 100/61 (74) 93 06/19/24 07:23 Nasal Cannula* 3 32 06/19/24 07:23 98.3 98.3 medications Current Medications Medications Dose Ordered Sig/Sumanth Route Start Time Stop Time Status Last Admin Dose Admin Carvedilol 6.25 mg BID PO 06/18/24 22:00 Duloxetine HCl 60 mg DAILY PO 06/19/24 10:00 06/19/24 11:05 60 MG Furosemide 40 mg BIDD PO 06/18/24 22:00 Gabapentin 400 mg QID PO 06/18/24 18:00 06/19/24 05:47 400 MG Gemfibrozil 600 mg BID PO 06/18/24 22:00 06/18/24 22:22 600 MG Ipratropium [place] 0.5 mg Q6HPRN PRN NEB 06/18/24 13:45 Spironolactone 25 mg BIDD PO 06/18/24 18:00 06/18/24 18:41 25 MG Tamsulosin HCl 0.4 mg QPM PO 06/18/24 18:00 06/18/24 18:41 0.4 MG Patient Own Medication 2 puff BID IN 06/18/24 22:00 Patient Own Medication 1 tab DAILY PO 06/19/24 10:00 UNV Patient Own Medication 1 tab DAILY PO 06/19/24 10:00 UNV Patient Own Medication 1 cap DAILY PO 06/19/24 10:00 UNV Patient Own Medication 1 cap TID PO 06/18/24 14:00 UNV Patient Own Medication 1 tab HS PO 06/18/24 22:00 UNV Patient Own Medication 1 tab QHSP PRN PO 06/18/24 13:45 UNV Lorazepam 0.5 mg Q6HP PRN PO 06/18/24 14:00 Al Hydrox/Mg Hydrox/Simethicone 30 ml Q6HP PRN PO 06/18/24 14:00 Docusate Sodium 100 mg BIDPRN PRN PO 06/18/24 14:00 Acetaminophen 650 mg Q6HP PRN PO 06/18/24 14:00 Temazepam 15 mg QHSP PRN PO 06/18/24 14:00 Ondansetron HCl 4 mg Q4HP PRN IV 06/18/24 14:00 06/18/24 20:48 4 MG Albuterol 90 mcg Q6HR IN 06/18/24 15:30 Folic Acid 1 mg DAILY PO 06/19/24 10:00 06/19/24 11:05 1 MG Magnesium Oxide 400 mg DAILY PO 06/19/24 10:00 06/19/24 11:07 400 MG Pantoprazole Sodium 40 mg DAILY PO 06/19/24 10:00 06/19/24 11:05 40 MG Zolpidem Tartrate 10 mg QHSP PRN PO 06/18/24 15:45 Quetiapine Fumarate 400 mg HS PO 06/18/24 22:00 06/18/24 22:14 400 MG Pregabalin 150 mg TID PO 06/18/24 22:00 06/19/24 05:47 150 MG Acetaminophen/ Hydrocodone Bitart 1 tab Q8HPRN PRN PO 06/19/24 00:00 06/19/24 08:34 1 TAB Meropenem 50 ml @ 17 mls/hr Q8H IV 06/19/24 18:00 Phenazopyridine HCl 200 mg TIDWM PO 06/19/24 12:00 UNV laboratory and microbiology Laboratory Tests 06/19/24 04:07 Test 06/19/24 04:07 Range/Units Serum Glucose 75 74-106 mg/dL ALISIA BARBER RESIDENT Jun 19, 2024 11:51
--- NOTE | 2024-06-19 11:59 | DVHPNRES ---
Progress Note Date Seen: Jun 19, 2024 Resident Creating Document: ALISIA BARBER RESIDENT Medical Necessity Reason Pt with a Central, PICC or Fol: No Subjective Review of Systems This is a 59-year-old patient with a history of CHF, COPD, carotid stenosis, gout, neuropathy hypertension, dysuria and hyperlipidemia patient came to the ED for evaluation of complaints of flank pain that has been on and off. Patient was recently managed for UTI early this month and sent home with home health. She presented today with lower abdominal pain, dysuria, burning with urination and lower back pain has been worsening for the past 7 days. Patient denied any nausea vomiting, fever or chills. Initial workup the ED revealed temperature of 98, pulse of 98, respiratory of 20 and blood pressure of 109/66. CT abdomen revealed5 mm nonobstructive left lower pole renal calculus. Past medical history: CAD, CHF, HTN, COPD, diabetes Past surgical history: Bariatric surgery, 4.5 months ago She previously weighed 300 lb, 3 C- sections, cholecystectomy, tonsillectomy and bilateral carpal tunnel surgery Family HISTORY: Hypertension, COPD, 3 bypass surgery by his brother SOCIAL HISTORY: Smoker, no drinking, Not working Constitutional: Yes: Weakness; No: Fever, Chills, Sweats, Malaise, Other Eyes: No: Pain, Vision change, Conjunctivae inflammation, Eyelid inflammation, Other, Redness ENT: No: Ear pain, Ear discharge, Nose pain, Nose discharge, Nose congestion, Mouth pain, Mouth swelling, Throat pain, Throat swelling, Other Respiratory: Cough, Shortness of breath; No: Dry, SOB with excertion, Wheezing, Hemoptysis, Pleuritic Pain, Sputum, Wheezing, Other Cardiovascular: No: Chest Pain, Palpitations, Orthopnea, Paroxysmal Noc. Dyspnea, Edema, Lt Headedness, Other Gastrointestinal: Nausea, Vomiting, Abdominal Pain; No: Diarrhea, Constipation, Melena, Hematochezia, Other Genitourinary: Dysuria, No Frequency, No Incontinence, No Hematuria, No Retention, No Other Musculoskeletal: No: other, neck pain, shoulder pain, arm pain; back pain Skin: No: Rash, Lesions, Jaundice, Bruising, Other Neurological: No: Weakness, Numbness, Incoordination, Change in speech, Confusion, Seizures, Other Objective vital signs Vital Sign Date Time Temp Pulse Resp B/P (MAP) Pulse Ox O2 Delivery O2 Flow Rate FiO2 06/19/24 11:00 78 12 100/61 (74) 93 06/19/24 07:23 Nasal Cannula* 3 32 06/19/24 07:23 98.3 98.3 medications Current Medications Medications Dose Ordered Sig/Sumanth Route Start Time Stop Time Status Last Admin Dose Admin Carvedilol 6.25 mg BID PO 06/18/24 22:00 Duloxetine HCl 60 mg DAILY PO 06/19/24 10:00 06/19/24 11:05 60 MG Furosemide 40 mg BIDD PO 06/18/24 22:00 Gabapentin 400 mg QID PO 06/18/24 18:00 06/19/24 05:47 400 MG Gemfibrozil 600 mg BID PO 06/18/24 22:00 06/18/24 22:22 600 MG Ipratropium [place] 0.5 mg Q6HPRN PRN NEB 06/18/24 13:45 Spironolactone 25 mg BIDD PO 06/18/24 18:00 06/18/24 18:41 25 MG Tamsulosin HCl 0.4 mg QPM PO 06/18/24 18:00 06/18/24 18:41 0.4 MG Patient Own Medication 2 puff BID IN 06/18/24 22:00 Patient Own Medication 1 tab DAILY PO 06/19/24 10:00 UNV Patient Own Medication 1 tab DAILY PO 06/19/24 10:00 UNV Patient Own Medication 1 cap DAILY PO 06/19/24 10:00 UNV Patient Own Medication 1 cap TID PO 06/18/24 14:00 UNV Patient Own Medication 1 tab HS PO 06/18/24 22:00 UNV Patient Own Medication 1 tab QHSP PRN PO 06/18/24 13:45 UNV Lorazepam 0.5 mg Q6HP PRN PO 06/18/24 14:00 Al Hydrox/Mg Hydrox/Simethicone 30 ml Q6HP PRN PO 06/18/24 14:00 Docusate Sodium 100 mg BIDPRN PRN PO 06/18/24 14:00 Acetaminophen 650 mg Q6HP PRN PO 06/18/24 14:00 Temazepam 15 mg QHSP PRN PO 06/18/24 14:00 Ondansetron HCl 4 mg Q4HP PRN IV 06/18/24 14:00 06/18/24 20:48 4 MG Albuterol 90 mcg Q6HR IN 06/18/24 15:30 Folic Acid 1 mg DAILY PO 06/19/24 10:00 06/19/24 11:05 1 MG Magnesium Oxide 400 mg DAILY PO 06/19/24 10:00 06/19/24 11:07 400 MG Pantoprazole Sodium 40 mg DAILY PO 06/19/24 10:00 06/19/24 11:05 40 MG Zolpidem Tartrate 10 mg QHSP PRN PO 06/18/24 15:45 Quetiapine Fumarate 400 mg HS PO 06/18/24 22:00 06/18/24 22:14 400 MG Pregabalin 150 mg TID PO 06/18/24 22:00 06/19/24 05:47 150 MG Acetaminophen/ Hydrocodone Bitart 1 tab Q8HPRN PRN PO 06/19/24 00:00 06/19/24 08:34 1 TAB Meropenem 50 ml @ 17 mls/hr Q8H IV 06/19/24 18:00 Phenazopyridine HCl 200 mg TIDWM PO 06/19/24 12:00 Examination General examination---> Moderate distress, Alert, Oriented X3, moderate distress HEENT: PEERLA, Atraumatic, PERRLA Chest: S1-S2 audible, rate and rhythm regular, no murmur Lung: CTAB, no wheeze or rhonchi Abdomen: distend, BS+, lower abdomen tenderness, no organomegaly Extremity: No clubbing, No cyanosis no leg edema Neurological: cranial nerves intact, no acute dysarthria or dysphagia Psychiatry-- Normal mood and affect Skin- no acute rash or purpura laboratory and microbiology Laboratory Tests 06/19/24 04:07 Test 06/19/24 04:07 Range/Units Serum Glucose 75 74-106 mg/dL Problem List/Assessment/Plan Problem List/Assessment/Plan Severe sepsis --> Wbc: 13.7-->8.5, lactice acid:1.9-->2.4 --> temp: 97.6, --> Complicated UTI, recent history of ESBL --> meropenem Nephrolithiasis --> 5 mm nonobstructive left lower pole renal calculus. --> tamsulosin CAREN --> monitor cr level --> adequate hydration --> 500 ml fluid Borderline hypotension --> BP:86/49 ( 61) --> Midodrine 10mg tid --> Monitor bp, if still low give fluid bolus Neuropathy --> pre gabapentin Lower abdominal pain/lower back pain --> [place] 5/.325 q8hr --> Dicyclomine COPD -> long history of smoking and still smoking -> desaturated at night, uses oxygen at night Chronic CHF --> Echo 02/2024 : 55% Possible obstructive sleep apnea --> night time snoring noted by partner --> BMI 32.3 History of brown recluse spider bite --> wound on the left lateral thigh with wound VAC present Prophylaxis: pantoprazole CODE STATUS: FULL Goal of care discussed for more than 35 minute Case and plan discussed with Dr. Varela Plan discussed with: Patient, Spouse Date of Service: Jun 19, 2024 Billing Provider: GLORIA ACHARYA MD Common Visit Codes: [id number] INP/OBS CARE(HIGH) ALISIA BARBER RESIDENT Jun 19, 2024 11:59 GLOIRA ACHARYA MD Jun 24, 2024 00:01
[2024-06-19] MEDS: PHENAZOPYRIDINE HCL 100 MG TAB PO SCH (12:14)
[2024-06-19] MEDS: SODIUM CHLORIDE 0.9% 500 ML IV ONE (12:15)
--- NOTE | 2024-06-19 12:45 | DVH ---
CT ABDOMEN AND PELVIS WITHOUT CONTRAST CLINICAL HISTORY: r/o renal abscess, nephrolithiasis TECHNIQUE: Multiple contiguous axial images of the abdomen and pelvis without intravenous contrast. The images were reformatted degenerate coronal and sagittal reconstructions. All CT scans at this medical facility are performed using dose modulation techniques as appropriate t o a performed exam including the following:Automated exposure control was utilized; adjustment of the MA and/or KV according to patient size; and use of iterative reconstruction technique. Radiation Dose Information: CT Dose: CTDI volume is 23.62 mGy. Dose-length product is 1299.66 mGy*cm Comparison: CT CT AB PEL WITH IV CON ONLY on DOS: 05/27/24, MBHL on DOS: 07/04/22 FINDINGS: Evaluation of the abdomen and pelvis is limited without intravenous contrast. There is a 5 mm calculus in the lower pole of the left kidney. There is no right renal calculus. Th ere is no hydronephrosis. There is no evidence of a ureteral calculus or hydroureter. Gallbladder is surgically absent. There is intrahepatic and extrahepatic biliary ductal dilatation w hich is likely postsurgical. There are scattered punctate calcified granulomas in the spleen. The liver, pancreas, and adrenal glands, appear within normal limits. There is no gross evidence of abdominal lymphadenopathy. There is no free fluid or free air. There is a small fat containing umbilical hernia. There are postsurgical changes related to gastric sleeve surgery. The small and large bowel loops de monstrate normal caliber. Air intermixed with moderate amount of stool is seen in the colon. The abdominal aorta and IVC appear within normal limits. The bladder appears unremarkable for the degree of distention. There is a small calcification in the body of the uterus which may represent a calcified leiomyoma.. There is no gross evidence of a pelvi c mass. There is no free fluid collection. There is scarring versus atelectasis in the right posterior lung base. The left lung base is clear. There is no acute osseous abnormality. There are multilevel degenerative changes in the lower lumbar spine. IMPRESSION: 1. 5 mm nonobstructive left lower pole renal calculus. 2. Cholecystectomy with likely postsurgical intrahepatic and extrahepatic biliary ductal dilatation. 3. Moderate amount of stool in the colon. 4. Scattered punctate calcified granulomas in the spleen. HS:Y
[2024-06-19] MEDS: DICYCLOMINE HCL 10 MG CAP PO ONE (12:58)
[2024-06-19 15:09] VITALS: O2SAT 95
[2024-06-19] MEDS: MIDODRINE HCL 10 MG TAB PO SCH (18:11)
[2024-06-19] MEDS: MEROPENEM 1GM IVPB 50 ML IV SCH (18:11)
[2024-06-19 18:53] VITALS: O2SAT 96
[2024-06-19 19:30] VITALS: PULSE 72; RESP 17; O2SAT 96
[2024-06-19] MEDS: NOREPINEPHRINE 8 MG/250ML KIT 250 ML IV ONE (20:35)
[2024-06-19] MEDS: NOREPINEPHRINE 8 MG/250ML KIT 250 ML IV SCH (20:45)
[2024-06-20] VITALS (94 sets, daily range): BP systolic 88–139; BP diastolic 27–93; PULSE 56–87; RESP 10–27; TEMP 98–98.3; O2SAT 86–98
[2024-06-20 04:44] LABS: Basophils # (auto) 0.1 10 ^3/uL (0-0.2); Basophils % (auto) 0.6 % (0.0-2.0); Eosinophils # (auto) 0.9 10 ^3/uL (0-0.8); Eosinophils % (auto) 10.3 % (0.0-7.0); Hematocrit 37.1 % (36.0-46.0); Hemoglobin 12.5 g/dL (12.2-16.2); Lymphocytes # (auto) 2.2 10 ^3/uL (0.4-5.4); Lymphocytes % (auto) 26.9 % (10.0-50.0); Mean Corpuscular Hemoglobin 33.2 pg (28.0-32.0); Mean Corpuscular Hgb Conc. 33.7 g/dL (32.0-36.0); Mean Corpuscular Volume 98.6 fL (80.0-100.0); Monocytes # (auto) 0.6 10 ^3/uL (0-1.3); Monocytes % (auto) 7.8 % (0.0-12.0); Neutrophils # (auto) 4.5 10 ^3/uL (1.6-8.6); Neutrophils % (auto) 54.4 % (37.0-80.0); Platelet Count (auto) 218 10^3/uL (140-450); Red Blood Cells 3.77 10^6/uL (4.0-5.20); Red Cell Distribution Width 14.8 % (11.8-14.3); White Blood Cell 8.3 10^3/uL (4.4-10.8)
[2024-06-20 04:54] LABS: Anion Gap 9 (5-15); Carbon Dioxide 21 mmol/L (20-31); Potassium 4.1 mmol/L (3.5-5.1); Sodium 143 mmol/L (136-145)
[2024-06-20 04:55] LABS: Calcium 9.5 mg/dL (8.7-10.4)
[2024-06-20 05:00] LABS: BUN/Creatinine Ratio 22.9 (10.0-20.0); Blood Urea Nitrogen 19 mg/dL (9-23); Glucose 97 mg/dL (74-106)
[2024-06-20 05:05] LABS: Chloride 113 mmol/L (98-107)
[2024-06-20 07:50] LABS: Alanine Aminotransferase 18 U/L (7-40); Alkaline Phosphatase 77 U/L (46-116); Aspartate Aminotransferase 17 U/L (13-40)
[2024-06-20 07:51] LABS: Albumin 3.6 g/dL (3.2-4.8)
[2024-06-20 07:53] LABS: Total Protein 5.8 g/dL (5.7-8.2)
[2024-06-20 07:58] LABS: Bilirubin, Direct < 0.1 mg/dL (<0.3); Bilirubin, Total 0.2 mg/dL (0.2-1.0)
[2024-06-20] MEDS ORDERED: VANCOMYCIN PER PHARMACY 0 MG IV SCH (08:30)
[2024-06-20] MEDS: VANCOMYCIN 1GM/250ML KIT 200 ML IV SCH ×2 (08:45→14:10)
[2024-06-20] MEDS ORDERED: HYDROcodone-ACET 5/325MG TAB PO PRN (10:45)
[2024-06-20 11:09] LABS: INR 0.96 (0.9-1.15); Prothrombin Time 10.2 sec (9.3-11.8)
--- NOTE | 2024-06-20 11:18 | DVH ---
CLINICAL INFORMATION: 59 years old, Female; central line attempt. TECHNIQUE: Single AP portable chest radiograph was obtained. COMPARISON: XY CHEST PORTABLE on DOS: 06/18/24, XY CHEST XRAY 1 VIEW on DOS: 05/24/24, XY CHEST PORTAB LE on DOS: 03/19/24 FINDINGS: Right internal jugular central venous catheter distal tip is at the right brachiocephalic vein, not r eaching the SVC. There is additional catheter tubing overlying the right upper lung, which is likely outside the patient. Bilateral interstitial opacities, slightly more conspicuous compared to the arash or exam. No focal consolidation. No pneumothorax or pleural effusion. No other significant interval c hange. IMPRESSION: 1. Distal tip of a right internal jugular central venous catheter is at the level of the right brachi ocephalic vein. 2. No pneumothorax. 3. Interstitial opacities appear increased compared to the prior exam, possibly interstitial pulmonar y edema or atypical infectious process.
[2024-06-20] MEDS: LIDOCAINE 1% (LOCAL ANESTH.) PF 5ml SDV ID ONE (12:55)
[2024-06-20] MEDS: LACTATED RINGER'S 500 ML IV ONE ×2 (13:39→17:44)
--- NOTE | 2024-06-20 14:01 | DVH ---
CLINICAL INFORMATION: 59 years old, Female; left thigh wound, eval for depth of infection, abscess. TECHNIQUE: Axial CT images of the left thigh were obtained without IV contrast. Coronal and sagittal reformatted images were obtained, reviewed, and stored. All CT scans at this medical facility are performed using dose modulation techniques as appropriate to a performed exam including the following : Automated exposure control was utilized; adjustment of the MA and/or KV according to patient size; and use of iterative reconstruction technique. CTDIvol = 17.48, 0.07, 0.07 mGy DLP = 832.86 mGy-cm COMPARISON: US LEFT LOWER EXTREMITY ULTRASOUN on DOS: 03/20/24, CT LEFT LOWER EXTREMITY W/O CON on DOS : 03/19/24 FINDINGS: There is a wound at the posterior lateral aspect of the proximal left thigh measuring up to 3.4 cm in greatest transverse dimension and 2.9 cm in greatest craniocaudal dimension, extending up to 1.3 cm in depth. There is adjacent soft tissue stranding, possible cellulitis or nonspecific infla mmation. No adjacent organized fluid collection identified. Additional areas of subcutaneous edema ar e seen more proximally within the subcutaneous tissues lateral to the left hip, which are nonspecific . Moderate fatty changes are seen in the left gluteus medius and minimus muscles. No acute osseous ab normality identified. Moderate arthritic changes are seen in the left hip. Acevedo catheter extends int o the bladder. Nonspecific nondilated fluid-filled small bowel loops. Scattered stool visualized in t he colon. IMPRESSION: 1. Wound at the posterior lateral aspect of the proximal left thigh as described above with mild delmy cent stranding, possible cellulitis in the appropriate clinical setting, or nonspecific inflammation. 2. Additional nonacute findings as detailed above.
--- NOTE | 2024-06-20 14:08 | DVHNC2 ---
Central Line Recorder of insertion practice: Fire Control Technician B Occupation of senior analyst programmer: Attending Physician, Name of senior analyst programmer Indication: Hypotension Room prepared for procedure: Yes Fire Control Technician B performed hand hygien: Yes Maximal sterile barrier precau: Mask/Eye shield, Sterile gown, Cap, Sterlie gloves, Large sterlie drape Skin Preparation: Providine iodine Skin preparation completely dr: Yes Insertion site: Right, Internal jugular Central line exchanged over a: No Antiseptic ointment applied to: No Post Assessment: No Pneumothorax UTO Consent Supervised by Dr. Hastings Procedure was unsuccessful Date of Service: Jun 20, 2024 Billing Provider: ELENI HASTINGS MD Common Visit Codes: PROCEDURE ONLY Date of Service: Jun 20, 2024 Billing Provider: ELENI HASTINGS MD Common Visit Codes: PROCEDURE ONLY Procedure Codes: [id number] NON-TUNNEL CV CATH (Unsuccessful) MIKE ASHFORD RESIDENT Jun 20, 2024 14:08 ELENI HASTINGS MD Jun 20, 2024 18:22
[2024-06-20] MEDS: MORPHINE SULFATE INJ 2 MG/ml SYRG IV PRN (15:03)
[2024-06-20 16:22] LABS: Amphetamine Screen, Urine Neg (NEGATIVE); Barbiturate Scree,Urine Neg (NEGATIVE); Opiate Scree,Urine Pos (NEGATIVE); Phencyclidine Screen, Urine Neg (NEGATIVE)
[2024-06-20 16:23] LABS: Benzodiazephine Screen, Urine Neg (NEGATIVE); Cannabinoid Screen, Urine Neg (NEGATIVE); Cocaine Screen, Urine Neg (NEGATIVE)
[2024-06-20] MEDS: HYDROcodone-ACET 10/325MG TAB PO PRN (18:21)
--- NOTE | 2024-06-20 19:40 | DVHPNRES ---
Progress Note Date Seen: Jun 20, 2024 Resident Creating Document: ALISIA BARBER RESIDENT Medical Necessity Reason Pt with a Central, PICC or Fol: Yes The following are medically ne: PICC Line (Unsuccessful central line insertion), Acevedo Catheter Medical Necessity Reason Complicated UTI Hypotension Subjective Review of Systems This 59-year-old patient with a history of CHF, COPD, carotid stenosis, gout, neuropathy hypertension, dysuria and hyperlipidemia patient is currently being managed for sepsis secondary to complicated UTI on Meropenem. Patient has been running very low blood pressure since yesterday. Attempt to place a central line today was unsuccessful. However and PICC was placed instead. Blood pressure now is127/ 62, HR 59, RR: 16 Review of System: Constitutional: Yes: Weakness; No: Fever, Chills, Sweats, Malaise, Other Eyes: No: Pain, Vision change, Conjunctivae inflammation, Eyelid inflammation, Other, Redness ENT: No: Ear pain, Ear discharge, Nose pain, Nose discharge, Nose congestion, Mouth pain, Mouth swelling, Throat pain, Throat swelling, Other Respiratory: Cough, Shortness of breath on 2L oxygen; No: Dry, SOB with excertion, Wheezing, Hemoptysis, Pleuritic Pain, Sputum, Wheezing, Other Cardiovascular: No: Chest Pain, Palpitations, Orthopnea, Paroxysmal Noc. Dyspnea, Edema, Lt Headedness, Other Gastrointestinal: mild lower abdominal Pain; No: Diarrhea, Constipation, Melena, Hematochezia, Other Genitourinary: No Frequency, No Incontinence, No Hematuria, No Retention, No Other Musculoskeletal: No: other, neck pain, shoulder pain, arm pain; back pain Skin: No: Rash, Lesions, Jaundice, Bruising, Other Neurological: No: Weakness, Numbness, Incoordination, Change in speech, Confusion, Seizures, Other Objective vital signs Vital Sign Date Time Temp Pulse Resp B/P (MAP) Pulse Ox O2 Delivery O2 Flow Rate FiO2 06/20/24 18:45 59 16 127/62 (83) 92 06/20/24 18:00 Nasal Cannula* 2 06/20/24 15:45 98.2 98.2 Total Intake and Output 06/19/24 06/19/24 06/20/24 15:00 23:00 07:00 Intake Total 550 ml 51 ml 356.75 ml Output Total 1200 ml Balance 550 ml 51 ml -843.25 ml medications Current Medications Medications Dose Ordered Sig/Sumanth Route Start Time Stop Time Status Last Admin Dose Admin Duloxetine HCl 60 mg DAILY PO 06/19/24 10:00 06/20/24 10:47 60 MG Gabapentin 400 mg QID PO 06/18/24 18:00 06/20/24 17:35 400 MG Gemfibrozil 600 mg BID PO 06/18/24 22:00 06/20/24 10:48 600 MG Ipratropium [place] 0.5 mg Q6HPRN PRN NEB 06/18/24 13:45 Tamsulosin HCl 0.4 mg QPM PO 06/18/24 18:00 06/20/24 17:35 0.4 MG Patient Own Medication 2 puff BID IN 06/18/24 22:00 Patient Own Medication 1 tab DAILY PO 06/19/24 10:00 UNV Patient Own Medication 1 tab DAILY PO 06/19/24 10:00 UNV Patient Own Medication 1 cap DAILY PO 06/19/24 10:00 UNV Patient Own Medication 1 cap TID PO 06/18/24 14:00 UNV Patient Own Medication 1 tab HS PO 06/18/24 22:00 UNV Patient Own Medication 1 tab QHSP PRN PO 06/18/24 13:45 UNV Lorazepam 0.5 mg Q6HP PRN PO 06/18/24 14:00 Al Hydrox/Mg Hydrox/Simethicone 30 ml Q6HP PRN PO 06/18/24 14:00 Docusate Sodium 100 mg BIDPRN PRN PO 06/18/24 14:00 Acetaminophen 650 mg Q6HP PRN PO 06/18/24 14:00 Temazepam 15 mg QHSP PRN PO 06/18/24 14:00 Ondansetron HCl 4 mg Q4HP PRN IV 06/18/24 14:00 06/20/24 13:36 4 MG Albuterol 90 mcg Q6HR IN 06/18/24 15:30 Cancel Folic Acid 1 mg DAILY PO 06/19/24 10:00 06/20/24 10:48 1 MG Magnesium Oxide 400 mg DAILY PO 06/19/24 10:00 06/20/24 10:48 400 MG Pantoprazole Sodium 40 mg DAILY PO 06/19/24 10:00 06/20/24 10:47 40 MG Zolpidem Tartrate 10 mg QHSP PRN PO 06/18/24 15:45 Quetiapine Fumarate 400 mg HS PO 06/18/24 22:00 06/18/24 22:14 400 MG Pregabalin 150 mg TID PO 06/18/24 22:00 06/20/24 13:37 150 MG Meropenem 50 ml @ 17 mls/hr Q8H IV 06/19/24 18:00 06/20/24 17:35 17 MLS/HR Phenazopyridine HCl 200 mg TIDWM PO 06/19/24 12:00 06/20/24 17:35 200 MG Midodrine 10 mg TID@0600,1200,1800 PO 06/19/24 18:00 06/20/24 17:35 10 MG Norepinephrine Bitartrate 250 ml @ 3.75 mls/hr Q24H IV 06/19/24 22:00 06/20/24 10:49 18.75 MLS/HR Vancomycin HCl 0 ml @ 0 mls/hr UD IV 06/20/24 08:30 Sodium Chloride 10 ml QSHIFT@10,22 IV 06/20/24 22:00 Morphine Sulfate 1 mg Q4HP PRN IV 06/20/24 14:00 06/20/24 15:03 1 MG Acetaminophen/ Hydrocodone Bitart 1 tab Q4HP PRN PO 06/20/24 16:00 06/20/24 18:21 1 TAB Vancomycin HCl 250 ml @ 200 mls/hr Q12H IV 06/21/24 02:00 Examination General examination---> Moderate distress, Alert, Oriented X3 HEENT: PEERLA, Atraumatic, PERRLA Chest: S1-S2 audible, rate and rhythm regular, no murmur Lung: CTAB, no wheeze or rhonchi Abdomen: distend, BS+, lower abdomen tenderness, no organomegaly Extremity: No clubbing, No cyanosis no leg edema Neurological: cranial nerves intact, no acute dysarthria or dysphagia; back pain Psychiatry-- Normal mood and affect Skin- wound VAC on left thigh laboratory and microbiology Laboratory Tests 06/20/24 04:25 Test 06/20/24 04:25 Range/Units Serum Glucose 97 74-106 mg/dL Microbiology Date/Time Source Procedure Growth Status 06/18/24 12:51 Blood Blood Culture - Preliminary NO GROWTH AFTER 48 HOURS OF INCUBATION. Resulted Labs and/or images reviewed: Labs reviewed by me, Image(s) reviewed by me Problem List/Assessment/Plan Problem List/Assessment/Plan Septic shock; most likely due to infected wound versus complicated UTI --> continue IV pressors as indicated --> Wbc: 13.7-->8.5, lactice acid:1.9-->2.4 --> temp: 97.6, --> Complicated UTI, recent history of ESBL --> Continue meropenem --> S/P PICC 06/20/24 --> Failed Central line attempt ( 06/20/2024) --> Midodrine 10mg tid --> Monitor bp, Current BP: 127/62 on Levophed --> pending urine culture; wound culture ordered, pending wound care evaluation Nephrolithiasis --> 5 mm nonobstructive left lower pole renal calculus. --> tamsulosin CAREN --> monitor cr level --> adequate hydration --> 500 ml fluid Borderline hypotension--> IMPROVED Neuropathy --> pre gabapentin Lower abdominal pain/lower back pain --> [place] 5/.325 q8hr --> Dicyclomine COPD -> long history of smoking and still smoking -> desaturated at night, uses oxygen at night Chronic CHF --> Echo 02/2024: 55% Possible obstructive sleep apnea --> consider sleep studies --> night time snoring noted by partner --> BMI 32.3 History of brown recluse spider bite --> wound on the left lateral thigh with wound VAC present ---> wound care consulted ---> wound culture ordered Prophylaxis: pantoprazole Goals of care discussed for 20 minutes; full code 120 minutes of critical care time excluding procedures Case and plan discussed with Dr. Hastings Plan discussed with: Patient, Other (Nurse) Critical Care Time (mins): 120 (Excluding procedures) Addendum Addendum Addendum I was physically present for the hooper portions of the service provided to patient by THE RESIDENT. I have reviewed the documentation, discussed the case with resident and agree with the resident's documentation except as noted. Also the patient's clinical case was discussed with the patient's nurse. This medical document was created using an electronic medical record system with computerized dictation system. Although this document has been carefully reviewed, there might still be some phonetic and typographical errors. These areas are purely typographical due to imperfections of the software programs, and do not reflect any compromise in the patient's medical care. Late signature. Date of Service: Jun 20, 2024 Billing Provider: ELENI HASTINGS MD Common Visit Codes: [id number] CARE 30-74 MIN (120 minutes excluding procedures), [id number] CARE-EACH +30MIN Secondary Visit Codes: [id number] CARE PLAN 30 MINUTES (20 minutes) ALISIA BARBER Jun 20, 2024 19:40 ELENI HASTINGS MD Jun 23, 2024 05:44
[2024-06-20] MEDS: SODIUM CHLOR 0.9% PF (SALINE LOCK) 10ML VIAL/SYR IV SCH (22:10)
[2024-06-21] VITALS (99 sets, daily range): BP systolic 71–132; BP diastolic 34–84; PULSE 58–80; RESP 10–25; TEMP 97.7–98.3; O2SAT 91–97
[2024-06-21] MEDS: VANCOMYCIN 1.25GM/250ML 250 ML IV SCH (02:10)
[2024-06-21] MEDS: VANCOMYCIN 1GM/250ML KIT 400 ML IV ONE (02:12)
[2024-06-21 03:53] LABS: Basophils # (auto) 0 10 ^3/uL (0-0.2); Basophils % (auto) 0.5 % (0.0-2.0); Eosinophils # (auto) 0.5 10 ^3/uL (0-0.8); Eosinophils % (auto) 7.7 % (0.0-7.0); Hematocrit 34.8 % (36.0-46.0); Hemoglobin 11.5 g/dL (12.2-16.2); Lymphocytes # (auto) 1.9 10 ^3/uL (0.4-5.4); Lymphocytes % (auto) 28.2 % (10.0-50.0); Mean Corpuscular Hemoglobin 32.8 pg (28.0-32.0); Mean Corpuscular Hgb Conc. 33.2 g/dL (32.0-36.0); Mean Corpuscular Volume 98.9 fL (80.0-100.0); Monocytes # (auto) 0.6 10 ^3/uL (0-1.3); Monocytes % (auto) 8.4 % (0.0-12.0); Neutrophils # (auto) 3.8 10 ^3/uL (1.6-8.6); Neutrophils % (auto) 55.2 % (37.0-80.0); Platelet Count (auto) 174 10^3/uL (140-450); Red Blood Cells 3.51 10^6/uL (4.0-5.20); Red Cell Distribution Width 14.9 % (11.8-14.3); White Blood Cell 6.8 10^3/uL (4.4-10.8)
[2024-06-21 04:16] LABS: Alanine Aminotransferase 10 U/L (7-40); Albumin 3.5 g/dL (3.2-4.8); Alkaline Phosphatase 73 U/L (46-116); Anion Gap 10 (5-15); BUN/Creatinine Ratio 16.4 (10.0-20.0); Blood Urea Nitrogen 10 mg/dL (9-23); Calcium 9.5 mg/dL (8.7-10.4); Glucose 104 mg/dL (74-106); Potassium 4.1 mmol/L (3.5-5.1)
[2024-06-21 04:29] LABS: Aspartate Aminotransferase 11 U/L (13-40); Bilirubin, Total 0.2 mg/dL (0.2-1.0); Carbon Dioxide 19 mmol/L (20-31); Chloride 116 mmol/L (98-107); Sodium 145 mmol/L (136-145); Total Protein 5.4 g/dL (5.7-8.2)
[2024-06-21] MEDS: Juven Fruit Punch Powder PACKET 28.8gm PO SCH (10:00)
[2024-06-21] MEDS: CEFEPIME 1GM/ 50ML 50 ML IV ONE (10:17)
[2024-06-21] MEDS: MORPHINE SULFATE INJ 2 MG/ml SYRG IV PRN (14:50)
[2024-06-21] MEDS: CEFEPIME 1GM/ 50ML 50 ML IV SCH (17:31)
--- NOTE | 2024-06-21 20:03 | DVHPNRES ---
Progress Note Date Seen: Jun 21, 2024 Resident Creating Document: ALISIA BARBER RESIDENT Medical Necessity Reason Pt with a Central, PICC or Fol: Yes The following are medically ne: PICC Line, Acevedo Catheter Medical Necessity Reason Complicated UTI//Hypotension Subjective Review of Systems Ms Schroeder is a 59-year-old female with a history of CHF, COPD, carotid stenosis, gout, neuropathy, hypertension, dysuria and hyperlipidemia who present to the ED with recurrent UTI/pyelophritis. Was seen today in the ED. she is looking better; however, she continues to complain of lower abdominal pain. Her blood culture came back negative for any bacteria growth. Therefore, we de- escalated antibiotic from Meropenem to Cefepime. Blood pressure is better, Currently at BP:107/49 and she is off levophed. Review of System: Constitutional: No: Fever, Chills, Sweats, Malaise, Other Eyes: No: Pain, Vision change, Conjunctivae inflammation, Eyelid inflammation, Other, Redness ENT: No: Ear pain, Ear discharge, Nose pain, Nose discharge, Nose congestion, Mouth pain, Mouth swelling, Throat pain, Throat swelling, Other Respiratory: chronic cough, Shortness of breath on 3L oxygen; No: Dry, SOB with excertion, Wheezing, Hemoptysis, Pleuritic Pain, Sputum, Wheezing, Other Cardiovascular: No: Chest Pain, Palpitations, Orthopnea, Paroxysmal Noc. Dyspnea, Edema, Lt Headedness, Other Gastrointestinal: mild lower abdominal Pain; No: Diarrhea, Constipation, Melena, Hematochezia, Other Genitourinary: No Frequency, No Incontinence, No Hematuria, No Retention, No Other Musculoskeletal: No: other, neck pain, shoulder pain, arm pain; back pain Skin: No: Rash, Lesions, Jaundice, Bruising, Other Neurological: No: Weakness, Numbness, Incoordination, Change in speech, Confusion, Seizures, Other Objective vital signs Vital Sign Date Time Temp Pulse Resp B/P (MAP) Pulse Ox O2 Delivery O2 Flow Rate FiO2 06/21/24 19:00 63 15 107/49 (68) 94 06/21/24 18:00 Nasal Cannula* 3 32 06/21/24 16:00 98.0 98.0 Total Intake and Output 06/20/24 06/20/24 06/21/24 15:00 23:00 07:00 Intake Total 275.00 ml 1283.75 ml 731.25 ml Output Total 1200 ml 3100 ml Balance 275.00 ml 83.75 ml -2368.75 ml medications Current Medications Medications Dose Ordered Sig/Sumanth Route Start Time Stop Time Status Last Admin Dose Admin Duloxetine HCl 60 mg DAILY PO 06/19/24 10:00 06/21/24 09:59 60 MG Gabapentin 400 mg QID PO 06/18/24 18:00 06/21/24 17:31 400 MG Gemfibrozil 600 mg BID PO 06/18/24 22:00 06/21/24 09:59 600 MG Ipratropium [place] 0.5 mg Q6HPRN PRN NEB 06/18/24 13:45 Tamsulosin HCl 0.4 mg QPM PO 06/18/24 18:00 06/21/24 17:32 0.4 MG Patient Own Medication 2 puff BID IN 06/18/24 22:00 Patient Own Medication 1 tab DAILY PO 06/19/24 10:00 UNV Patient Own Medication 1 tab DAILY PO 06/19/24 10:00 UNV Patient Own Medication 1 cap DAILY PO 06/19/24 10:00 UNV Patient Own Medication 1 cap TID PO 06/18/24 14:00 UNV Patient Own Medication 1 tab HS PO 06/18/24 22:00 UNV Patient Own Medication 1 tab QHSP PRN PO 06/18/24 13:45 UNV Al Hydrox/Mg Hydrox/Simethicone 30 ml Q6HP PRN PO 06/18/24 14:00 Docusate Sodium 100 mg BIDPRN PRN PO 06/18/24 14:00 Acetaminophen 650 mg Q6HP PRN PO 06/18/24 14:00 Ondansetron HCl 4 mg Q4HP PRN IV 06/18/24 14:00 06/21/24 18:47 4 MG Albuterol 90 mcg Q6HR IN 06/18/24 15:30 Cancel Folic Acid 1 mg DAILY PO 06/19/24 10:00 06/21/24 09:59 1 MG Magnesium Oxide 400 mg DAILY PO 06/19/24 10:00 06/21/24 09:59 400 MG Pantoprazole Sodium 40 mg DAILY PO 06/19/24 10:00 06/21/24 09:59 40 MG Zolpidem Tartrate 10 mg QHSP PRN PO 06/18/24 15:45 Quetiapine Fumarate 400 mg HS PO 06/18/24 22:00 06/20/24 22:10 400 MG Pregabalin 150 mg TID PO 06/18/24 22:00 06/21/24 14:10 150 MG Midodrine 10 mg TID@0600,1200,1800 PO 06/19/24 18:00 06/21/24 17:32 10 MG Norepinephrine Bitartrate 250 ml @ 3.75 mls/hr Q24H IV 06/19/24 22:00 06/21/24 17:51 3.75 MLS/HR Vancomycin HCl 0 ml @ 0 mls/hr UD IV 06/20/24 08:30 Sodium Chloride 10 ml QSHIFT@10,22 IV 06/20/24 22:00 06/21/24 09:59 10 ML Acetaminophen/ Hydrocodone Bitart 1 tab Q4HP PRN PO 06/20/24 16:00 06/21/24 16:27 1 TAB Vancomycin HCl 250 ml @ 200 mls/hr Q12H IV 06/21/24 02:00 06/21/24 14:11 200 MLS/HR Morphine Sulfate 1 mg Q6HP PRN IV 06/21/24 09:30 06/21/24 14:50 1 MG Enteral Nutritional Formula 28.8 gm DAILY PO 06/21/24 10:00 Cefepime HCl 50 ml @ 12.5 mls/hr Q8H IV 06/21/24 18:00 06/21/24 17:31 12.5 MLS/HR Examination General examination---> Not in any distress, Alert, Oriented X3 HEENT: Atraumatic, PERRLA Chest: S1-S2 audible, rate and rhythm regular, no murmur Lung: CTAB, no wheeze or rhonchi Abdomen: distend, BS+, lower abdomen tenderness, no organomegaly Extremity: No clubbing, No cyanosis no leg edema Neurological: cranial nerves intact, no acute dysarthria or dysphagia; back pain Psychiatry-- Normal mood and affect Skin- left thigh wound VAC laboratory and microbiology Laboratory Tests 06/21/24 03:18 Test 06/21/24 03:18 Range/Units Serum Glucose 104 74-106 mg/dL Microbiology Date/Time Source Procedure Growth Status 06/20/24 15:00 Voided Urine Urine Culture - Preliminary Resulted 06/20/24 10:45 Blood Blood Culture - Preliminary NO GROWTH AFTER 24 HOURS OF INCUBATION. Resulted Labs and/or images reviewed: Labs reviewed by me, Image(s) reviewed by me Problem List/Assessment/Plan Problem List/Assessment/Plan Septic shock due to infected wound versus complicated UTI --> Wbc: 13.7-->8.5, lactice acid:1.9-->2.4 --> temp: 97.6, --> Complicated UTI, recent history of ESBL --> Now on Cefepime; continue IV pressors via PICC line as indicated Complicated recurrent UTI --> Blood culture: Negative --> Meropenem--> Cefepime --> recommend urologist follow up outpatient Nephrolithiasis --> 5 mm nonobstructive left lower pole renal calculus. --> tamsulosin CAREN --> monitor cr level --> adequate hydration --> 500 ml fluid Neuropathy --> pre gabapentin Lower abdominal pain/lower back pain --> [place] 5/.325 q8hr --> Dicyclomine COPD -> long history of smoking and still smoking -> desaturated at night, uses oxygen at night Chronic CHF --> Echo 02/2024: 55% Possible obstructive sleep apnea --> consider sleep studies --> night time snoring noted by partner --> BMI 32.3 History of brown recluse spider bite --> Wound Care consulted; wound culture ordered --> wound on the left lateral thigh with wound VAC present Prophylaxis: pantoprazole 66 minutes of critical care time Case and plan discussed with Dr. Hastings Plan discussed with: Patient, Daughter, Other (Nurse) Critical Care Time (mins): 66 Addendum Addendum Addendum I was physically present for the hooper portions of the service provided to patient by THE RESIDENT. I have reviewed the documentation, discussed the case with resident and agree with the resident's documentation except as noted. Also the patient's clinical case was discussed with the patient's nurse. This medical document was created using an electronic medical record system with computerized dictation system. Although this document has been carefully reviewed, there might still be some phonetic and typographical errors. These areas are purely typographical due to imperfections of the software programs, and do not reflect any compromise in the patient's medical care. Late signature. Date of Service: Jun 21, 2024 Billing Provider: ELENI HASTINGS MD Common Visit Codes: 48883-[id number] CARE 30-74 MIN (66 minutes) ALISIA BARBER RESIDENT Jun 21, 2024 20:03 ELENI HASTINGS MD Jun 23, 2024 05:47
[2024-06-21] MEDS: ZOLPIDEM TARTRATE 5 MG TAB PO PRN (22:20)
[2024-06-22] VITALS (73 sets, daily range): BP systolic 83–132; BP diastolic 38–70; PULSE 59–94; RESP 7–18; TEMP 97.4–98.2; O2SAT 91–97
[2024-06-22 05:24] LABS: Anion Gap 6 (5-15); Carbon Dioxide 24 mmol/L (20-31); Potassium 4.2 mmol/L (3.5-5.1); Sodium 142 mmol/L (136-145)
[2024-06-22 05:30] LABS: BUN/Creatinine Ratio 12.3 (10.0-20.0); Glucose 78 mg/dL (74-106)
[2024-06-22 05:37] LABS: Blood Urea Nitrogen 7 mg/dL (9-23); Chloride 112 mmol/L (98-107)
[2024-06-22] MEDS: ENOXAPARIN SOD 40 MG/0.4 ML SYRINGE SC SCH (09:46)
[2024-06-22] MEDS: Ensure HIGH Protein Chocolate 8oz Bottle PO SCH (09:47)
[2024-06-22] MEDS: SODIUM CHLORIDE 0.9% 500 ML IV SCH (10:45)
--- NOTE | 2024-06-22 12:01 | DVH ---
CLINICAL INFORMATION: 59 years old, Female; shoulder pain status post fall injury. TECHNIQUE: 3 views of the left shoulder were obtained. COMPARISON: No prior imaging of either shoulder was available for comparison at the time of dictation . FINDINGS: No acute fracture or dislocation. [id number] arthritic changes are seen in the acrom ioclavicular joints. Likely moderate arthritic changes in the left glenohumeral joint with osseous sp urring of the inferior glenoid. Overlying soft tissues are grossly unremarkable. IMPRESSION: 1. No evidence of acute fracture. 2. Nonacute findings as described above. Correlate with clinical findings.
--- NOTE | 2024-06-22 12:57 | DVHPNRES ---
Progress Note Date Seen: Jun 22, 2024 Resident Creating Document: MIKE ASHFORD RESIDENT Medical Necessity Reason Pt with a Central, PICC or Fol: Yes The following are medically ne: PICC Line, Acevedo Catheter Subjective Review of Systems Patient was seen and examined at bedside. She stated feeling well denied any significant chest pain, shortness of breath, dizziness, lightheadedness. She states having mild to moderate intermittent abdominal pain in the lower quadrants. Patient was complain of bilateral shoulder pain states she had a fall recently, ordered x-ray Levophed currently at two, we will titrate off on the IV fluids 500 mL once. Continue broad-spectrum antibiotics. We will consider downgrading asked her Levophed has been weaned off Wound consult still pending Objective vital signs Vital Sign Date Time Temp Pulse Resp B/P (MAP) Pulse Ox O2 Delivery O2 Flow Rate FiO2 06/22/24 12:15 83 13 94/47 (63) 94 06/22/24 12:00 98.2 98.2 06/22/24 10:00 Nasal Cannula* 3 32 Total Intake and Output 06/21/24 06/21/24 06/22/24 15:00 23:00 07:00 Intake Total 307.50 ml 280.00 ml 280.00 ml Output Total 2000 ml Balance 307.50 ml 280.00 ml -1720.00 ml medications Current Medications Medications Dose Ordered Sig/Sumanth Route Start Time Stop Time Status Last Admin Dose Admin Duloxetine HCl 60 mg DAILY PO 06/19/24 10:00 06/22/24 09:45 60 MG Gabapentin 400 mg QID PO 06/18/24 18:00 06/22/24 11:22 400 MG Gemfibrozil 600 mg BID PO 06/18/24 22:00 06/22/24 09:46 600 MG Ipratropium [place] 0.5 mg Q6HPRN PRN NEB 06/18/24 13:45 Tamsulosin HCl 0.4 mg QPM PO 06/18/24 18:00 06/21/24 17:32 0.4 MG Patient Own Medication 2 puff BID IN 06/18/24 22:00 Patient Own Medication 1 tab DAILY PO 06/19/24 10:00 UNV Patient Own Medication 1 tab DAILY PO 06/19/24 10:00 UNV Patient Own Medication 1 cap DAILY PO 06/19/24 10:00 UNV Patient Own Medication 1 cap TID PO 06/18/24 14:00 UNV Patient Own Medication 1 tab HS PO 06/18/24 22:00 UNV Patient Own Medication 1 tab QHSP PRN PO 06/18/24 13:45 UNV Al Hydrox/Mg Hydrox/Simethicone 30 ml Q6HP PRN PO 06/18/24 14:00 Docusate Sodium 100 mg BIDPRN PRN PO 06/18/24 14:00 Acetaminophen 650 mg Q6HP PRN PO 06/18/24 14:00 Ondansetron HCl 4 mg Q4HP PRN IV 06/18/24 14:00 06/21/24 18:47 4 MG Albuterol 90 mcg Q6HR IN 06/18/24 15:30 Cancel Folic Acid 1 mg DAILY PO 06/19/24 10:00 06/22/24 09:45 1 MG Magnesium Oxide 400 mg DAILY PO 06/19/24 10:00 06/22/24 09:45 400 MG Pantoprazole Sodium 40 mg DAILY PO 06/19/24 10:00 06/22/24 09:45 40 MG Zolpidem Tartrate 10 mg QHSP PRN PO 06/18/24 15:45 06/21/24 22:20 10 MG Quetiapine Fumarate 400 mg HS PO 06/18/24 22:00 06/21/24 22:08 400 MG Pregabalin 150 mg TID PO 06/18/24 22:00 06/22/24 06:03 150 MG Midodrine 10 mg TID@0600,1200,1800 PO 06/19/24 18:00 06/22/24 11:22 10 MG Norepinephrine Bitartrate 250 ml @ 3.75 mls/hr Q24H IV 06/19/24 22:00 06/21/24 17:51 3.75 MLS/HR Vancomycin HCl 0 ml @ 0 mls/hr UD IV 06/20/24 08:30 Sodium Chloride 10 ml QSHIFT@10,22 IV 06/20/24 22:00 06/22/24 09:46 10 ML Acetaminophen/ Hydrocodone Bitart 1 tab Q4HP PRN PO 06/20/24 16:00 06/22/24 10:10 1 TAB Vancomycin HCl 250 ml @ 200 mls/hr Q12H IV 06/21/24 02:00 06/21/24 14:11 200 MLS/HR Morphine Sulfate 1 mg Q6HP PRN IV 06/21/24 09:30 06/22/24 08:24 1 MG Enteral Nutritional Formula 28.8 gm DAILY PO 06/21/24 10:00 Cefepime HCl 50 ml @ 12.5 mls/hr Q8H IV 06/21/24 18:00 06/22/24 09:45 12.5 MLS/HR Enteral Nutritional Formula 240 ml BIDWM PO 06/22/24 08:00 06/22/24 09:47 240 ML Enoxaparin Sodium 40 mg DAILY SC 06/22/24 10:00 06/22/24 09:46 40 MG Sodium Chloride 500 ml @ 150 mls/hr Q3H20M IV 06/22/24 10:45 06/22/24 10:45 150 MLS/HR Examination General: Awake, alert, comfortable appearing, in no acute distress. HEENT: Head is normocephalic and atraumatic. Pupils are equal, round, and reactive to light. Extraocular muscles are intact. No nasal discharge. No facial trauma. Intraoral exam shows moist mucous membranes with no tonsillar enlargement or exudate. Neck: Supple with no cervical lymphadenopathy No meningismus. No goiter. Heart: Regular rate without murmur, rub, or gallop. Lungs: Equal breath sounds bilaterally with no wheezing, rales, or rhonchi. There is no chest wall tenderness or instability. Abdomen: Mild abdominal distention with mild tenderness to palpation on lower quadrants Extremities: Strong peripheral pulses. There is no clubbing, no cyanosis, and no edema. Scar and surgical site on left thigh Skin: Left thigh wound VAC Neurologic: Cranial nerves II-XII intact without motor, sensory, or cerebellar deficit, no asterixis. laboratory and microbiology Laboratory Tests 06/22/24 04:50 06/21/24 03:18 Test 06/22/24 04:50 Range/Units Serum Glucose 78 74-106 mg/dL Microbiology Date/Time Source Procedure Growth Status 06/21/24 10:00 Voided Urine Urine Culture - Preliminary Resulted 06/20/24 10:45 Blood Blood Culture - Preliminary NO GROWTH AFTER 48 HOURS OF INCUBATION. Resulted Labs and/or images reviewed: Labs reviewed by me, Image(s) reviewed by me Problem List/Assessment/Plan Problem List/Assessment/Plan Septic shock likely due to UTI, possibly related to soft tissue infection on left thigh --> Wbc: 13.7-->8.5, lactice acid:1.9-->2.4 --> temp: 97.6, --> Complicated UTI, recent history of ESBL --> Now on Cefepime vancomycin ---> continue IV pressors as indicated Complicated recurrent UTI --> Blood culture: Negative --> Meropenem--> Cefepime --> recommend urologist follow up outpatient Nephrolithiasis --> 5 mm nonobstructive left lower pole renal calculus. --> tamsulosin CAREN; most likely vasomotor nephropathy due to septic shock --> monitor cr level --> adequate hydration --> 500 ml fluid Neuropathy --> pre gabapentin Lower abdominal pain/lower back pain --> [place] 5/.325 q8hr --> Dicyclomine COPD -> long history of smoking and still smoking -> desaturated at night, uses oxygen at night Chronic CHF --> Echo 02/2024: 55% Possible obstructive sleep apnea --> consider sleep studies --> night time snoring noted by partner --> BMI 32.3 History of brown recluse spider bite on left thigh, with chronic wound --> Wound Care consulted; wound culture ordered --> wound on the left lateral thigh with wound VAC present Prophylaxis: pantoprazole 55 minutes of critical care Case and plan discussed with Dr. Hastings Plan discussed with: Patient, Other (rn) My Orders My Orders Orders - MIKE ASHFORD RESIDENT Procedure Category Date Status Time Creatinine LAB 06/22/24 Logged 13:00 Nutritional PHA 06/22/24 In Process Supplements (Ensure 08:00 Enoxaparin Sodium PHA 06/22/24 In Process (Lovenox) 10:00 Vancomycin,Trough LAB 06/24/24 Verified 01:00 Complete Blood Count LAB 06/23/24 Verified 04:00 Creatinine LAB 06/23/24 Verified 04:00 Vancomycin Per MARCI 06/22/24 In Process Pharmacy Protoc 09:28 L Shoulder 2+ View XY 06/22/24 Taken Xray 10:32 R Shoulder 2+ View XY 06/22/24 Resulted Xray 10:32 Sodium Chloride 0.9% PHA 06/22/24 In Process 10:45 Basic Metabolic Panel LAB 06/23/24 Verified 04:00 Critical Care Time (mins): 55 Addendum Addendum Addendum I was physically present for the hooper portions of the service provided to patient by THE RESIDENT. I have reviewed the documentation, discussed the case with resident and agree with the resident's documentation except as noted. Also the patient's clinical case was discussed with the patient's nurse. This medical document was created using an electronic medical record system with computerized dictation system. Although this document has been carefully reviewed, there might still be some phonetic and typographical errors. These areas are purely typographical due to imperfections of the software programs, and do not reflect any compromise in the patient's medical care. Late signature. Date of Service: Jun 22, 2024 Billing Provider: ELENI HASTINGS MD Common Visit Codes: [id number] CARE 30-74 MIN (55 minutes) MIKE ASHFORD RESIDENT Jun 22, 2024 12:57 ELENI HASTINGS MD Jun 23, 2024 05:50
[2024-06-22] MEDS: NOREPINEPHRINE 8 MG/250ML KIT 250 ML IV SCH (13:45)
[2024-06-22] MEDS ORDERED: DICYCLOMINE HCL 10 MG CAP PO PRN (15:00)
[2024-06-22] MEDS ORDERED: IBUPROFEN 600 MG TAB PO PRN (15:00)
[2024-06-22] MEDS: DOCUSATE SOD 100 MG CAP PO ONE (15:23)
--- NOTE | 2024-06-22 16:40 | DVH ---
Exam: US US GUIDED VASCULAR ACCESS Clinical History: PICC line insertion Comparison: None Findings: Targeted sonographic evaluation of the arm vein was obtained utilizing grayscale and color Doppler im aging. IMPRESSION: Sonographic assistance for central line placement. Please refer to procedural report for detailed fin dings.
[2024-06-23] MEDS: VANCOMYCIN 1GM/250ML KIT 200 ML IV ONE (03:59)
[2024-06-23 05:20] LABS: Basophils # (auto) 0 10 ^3/uL (0-0.2); Basophils % (auto) 0.6 % (0.0-2.0); Eosinophils # (auto) 0.6 10 ^3/uL (0-0.8); Eosinophils % (auto) 9.3 % (0.0-7.0); Hematocrit 34.5 % (36.0-46.0); Hemoglobin 11.6 g/dL (12.2-16.2); Lymphocytes % (auto) 29.7 % (10.0-50.0); Mean Corpuscular Hemoglobin 33.2 pg (28.0-32.0); Mean Corpuscular Hgb Conc. 33.5 g/dL (32.0-36.0); Monocytes # (auto) 0.5 10 ^3/uL (0-1.3); Monocytes % (auto) 7.2 % (0.0-12.0); Neutrophils # (auto) 3.5 10 ^3/uL (1.6-8.6); Neutrophils % (auto) 53.2 % (37.0-80.0); Nucleated Red Blood Cells % 0.1 %; Platelet Count (auto) 181 10^3/uL (140-450); Red Blood Cells 3.49 10^6/uL (4.0-5.20); White Blood Cell 6.6 10^3/uL (4.4-10.8)
[2024-06-23 05:34] LABS: Anion Gap 8 (5-15); Carbon Dioxide 23 mmol/L (20-31); Potassium 4.1 mmol/L (3.5-5.1); Sodium 144 mmol/L (136-145)
[2024-06-23 05:35] LABS: Calcium 9.7 mg/dL (8.7-10.4)
[2024-06-23] MEDS: VANCOMYCIN 1GM/250ML KIT 50 ML IV ONE (05:39)
[2024-06-23 05:40] LABS: BUN/Creatinine Ratio 13.2 (10.0-20.0); Glucose 83 mg/dL (74-106)
[2024-06-23 05:42] LABS: Blood Urea Nitrogen 7 mg/dL (9-23); Chloride 113 mmol/L (98-107)
--- NOTE | 2024-06-23 08:14 | DVH ---
XY CHEST PORTABLE, HISTORY: SOB COMPARISON: XY CHEST PORTABLE on DOS: 06/20/24, XY CHEST PORTABLE on DOS: 06/18/24, XY CHEST XRAY 1 V IEW on DOS: 05/24/24 XY CHEST PORTABLE on DOS: 06/20/24, XY CHEST PORTABLE on DOS: 06/18/24, XY CHEST XRAY 1 VIEW on DOS: 05/24/24 TECHNICAL DATA: 1 view of the chest was obtained. FINDINGS: Lines and tubes: Right arm PICC in the SVC. Cardiomediastinal silhouette: enlarged Pulmonary vasculature: prominent Lung expansion: normal Lung airspace: normal Lung interstitium: normal Pleura: normal Pneumothorax: no Bones: Unremarkable Other: no IMPRESSION: Mild cardiomegaly with pulmonary vascular congestion.
[2024-06-23] MEDS: LIDOCAINE 5% TOPICAL PATCH TOP SCH (09:58)
[2024-06-23 15:55] LABS: Rapid Influenza A Negative (Negative); Rapid Influenza B Negative (Negative)
[2024-06-23 15:56] LABS: COVID19 ANTIGEN SOFIA FIA NEGATIVE (NEGATIVE)
--- NOTE | 2024-06-23 16:49 | DVHPNRES ---
Progress Note Date Seen: Jun 23, 2024 Resident Creating Document: ALISIA BARBER RESIDENT Medical Necessity Reason Pt with a Central, PICC or Fol: Yes The following are medically ne: PICC Line, Acevedo Catheter Medical Necessity Reason Septic shock Subjective Review of Systems Patient was seen and examined at bedside. She seemed to be be doing well today wanting to go home. She denies any significant chest pain, shortness of breath, dizziness, lightheadedness. She stated some improvement in the abdominal pain. Patient blood pressure seemed to be alone low side when she was taken off the pressors therefore this morning at my time of visitation patient was back on Levophed of 2 units and that was maintaining her blood pressure around 116/67. Without the pressors, her SBP was running in low 90 up 80s . Not stable for discharge yet. Wound culture: Gram Stain Final:RESULT:Gram-negative rods and few Gram-positive cocci in pair. wound culture shows Gram-negative rods susceptibility pending Objective vital signs Vital Sign Date Time Temp Pulse Resp B/P (MAP) Pulse Ox O2 Delivery O2 Flow Rate FiO2 06/23/24 14:49 103/85 (91) 06/23/24 13:01 63 13 06/23/24 11:00 95 06/23/24 08:10 Nasal Cannula* 3 32 06/22/24 12:00 98.2 98.2 Total Intake and Output 06/22/24 06/22/24 06/23/24 15:00 23:00 07:00 Intake Total 824.375 ml 1457.500 ml 50 ml Output Total 1700 ml Balance 824.375 ml -242.500 ml 50 ml medications Current Medications Medications Dose Ordered Sig/Sumanth Route Start Time Stop Time Status Last Admin Dose Admin Duloxetine HCl 60 mg DAILY PO 06/19/24 10:00 06/23/24 08:32 60 MG Gabapentin 400 mg QID PO 06/18/24 18:00 06/23/24 12:24 400 MG Gemfibrozil 600 mg BID PO 06/18/24 22:00 06/23/24 08:32 600 MG Ipratropium [place] 0.5 mg Q6HPRN PRN NEB 06/18/24 13:45 Cancel Tamsulosin HCl 0.4 mg QPM PO 06/18/24 18:00 06/21/24 17:32 0.4 MG Patient Own Medication 2 puff BID IN 06/18/24 22:00 Patient Own Medication 1 tab DAILY PO 06/19/24 10:00 UNV Patient Own Medication 1 tab DAILY PO 06/19/24 10:00 UNV Patient Own Medication 1 cap DAILY PO 06/19/24 10:00 UNV Patient Own Medication 1 cap TID PO 06/18/24 14:00 UNV Patient Own Medication 1 tab HS PO 06/18/24 22:00 UNV Patient Own Medication 1 tab QHSP PRN PO 06/18/24 13:45 UNV Al Hydrox/Mg Hydrox/Simethicone 30 ml Q6HP PRN PO 06/18/24 14:00 Docusate Sodium 100 mg BIDPRN PRN PO 06/18/24 14:00 Acetaminophen 650 mg Q6HP PRN PO 06/18/24 14:00 Ondansetron HCl 4 mg Q4HP PRN IV 06/18/24 14:00 06/23/24 12:30 4 MG Albuterol 90 mcg Q6HR IN 06/18/24 15:30 Cancel Folic Acid 1 mg DAILY PO 06/19/24 10:00 06/23/24 08:31 1 MG Magnesium Oxide 400 mg DAILY PO 06/19/24 10:00 06/23/24 08:31 400 MG Pantoprazole Sodium 40 mg DAILY PO 06/19/24 10:00 06/23/24 08:31 40 MG Zolpidem Tartrate 10 mg QHSP PRN PO 06/18/24 15:45 06/22/24 21:57 10 MG Quetiapine Fumarate 400 mg HS PO 06/18/24 22:00 06/22/24 21:58 400 MG Pregabalin 150 mg TID PO 06/18/24 22:00 06/23/24 14:04 150 MG Midodrine 10 mg TID@0600,1200,1800 PO 06/19/24 18:00 06/23/24 12:24 10 MG Vancomycin HCl 0 ml @ 0 mls/hr UD IV 06/20/24 08:30 Sodium Chloride 10 ml QSHIFT@10,22 IV 06/20/24 22:00 06/23/24 10:19 10 ML Acetaminophen/ Hydrocodone Bitart 1 tab Q4HP PRN PO 06/20/24 16:00 06/23/24 14:05 1 TAB Morphine Sulfate 1 mg Q6HP PRN IV 06/21/24 09:30 06/23/24 12:31 1 MG Enteral Nutritional Formula 28.8 gm DAILY PO 06/21/24 10:00 Cefepime HCl 50 ml @ 12.5 mls/hr Q8H IV 06/21/24 18:00 06/23/24 08:30 12.5 MLS/HR Enteral Nutritional Formula 240 ml BIDWM PO 06/22/24 08:00 06/23/24 08:00 240 ML Enoxaparin Sodium 40 mg DAILY SC 06/22/24 10:00 06/23/24 08:31 40 MG Sodium Chloride 500 ml @ 150 mls/hr Q3H20M IV 06/22/24 10:45 06/23/24 13:29 150 MLS/HR Norepinephrine Bitartrate 250 ml @ 1.875 mls/ hr Q24H IV 06/22/24 13:45 Dicyclomine HCl 20 mg QID PRN PO 06/22/24 15:00 Lidocaine 1 patch DAILY TOP 06/23/24 10:00 Ibuprofen 600 mg Q6HP PRN PO 06/22/24 15:00 Examination General: Awake, alert, comfortable appearing, in no acute distress. HEENT: Head is normocephalic and atraumatic. Pupils are equal, round, and reactive to light. Extraocular muscles are intact. No nasal discharge. No facial trauma. Intraoral exam shows moist mucous membranes with no tonsillar enlargement or exudate. Neck: Supple with no cervical lymphadenopathy No meningismus. No goiter. Heart: Regular rate without murmur, rub, or gallop. Lungs: Equal breath sounds bilaterally with no wheezing, rales, or rhonchi. There is no chest wall tenderness or instability. Abdomen: Mild abdominal distention with mild tenderness to palpation on lower quadrants --> somewhat improved from before. Extremities: Strong peripheral pulses. There is no clubbing, no cyanosis, and no edema. Scar and surgical site on left thigh Skin: Left thigh wound VAC Neurologic: Cranial nerves II-XII intact without motor, sensory, or cerebellar deficit, no asterixis laboratory and microbiology Laboratory Tests 06/23/24 05:01 Test 06/23/24 05:01 Range/Units Serum Glucose 83 74-106 mg/dL Microbiology Date/Time Source Procedure Growth Status 06/22/24 10:00 Thigh Gram Stain - Final Resulted 06/22/24 10:00 Thigh Wound Culture - Preliminary Resulted 06/21/24 10:00 Voided Urine Urine Culture - Final Complete 06/20/24 10:45 Blood Blood Culture - Preliminary NO GROWTH AFTER 72 HOURS OF INCUBATION. Resulted Labs and/or images reviewed: Labs reviewed by me, Image(s) reviewed by me Problem List/Assessment/Plan Problem List/Assessment/Plan Septic shock likely due to UTI, possibly related to soft tissue infection on left thigh --> WBCs: 13.7-->8.5, lactic acid:1.9-->2.4 --> temp: 97.6, --> Complicated UTI, recent history of ESBL --> Now on Cefepime vancomycin --> Unable to maintain stable blood pressure of pressors ---> continue IV pressors as indicated; IV Levophed was stopped at 7:55 a.m. this morning Left thigh wound ---> culture shows Gram-negative rods susceptibility pending Complicated recurrent UTI --> Blood culture: Negative --> Meropenem--> Cefepime --> recommend urologist follow up outpatient Nephrolithiasis --> 5 mm nonobstructive left lower pole renal calculus. --> tamsulosin CAREN; vasomotor nephropathy --> monitor cr level --> adequate hydration --> 500 ml fluid Neuropathy --> pre gabapentin Lower abdominal pain/lower back pain --> [place] 5/.325 q8hr --> Dicyclomine COPD; not in exacerbation -> long history of smoking and still smoking -> desaturated at night, uses oxygen at night -> counseled on tobacco use cessation Chronic CHF --> Echo 02/2024: 55% Possible obstructive sleep apnea --> consider sleep studies --> night time snoring noted by partner --> BMI 32.3 History of brown recluse spider bite --> Wound Care consulted; wound culture was sent --> wound on the left lateral thigh with wound VAC present Prophylaxis: pantoprazole 48 minutes of critical care time; transferred to telemetry later in the day Case and plan discussed with Dr. Hastings Plan discussed with: Patient, Spouse, Other (Nurse) Dietary Evaluation Review Comments: 1. Continue current diet 2. F/u with wound assessment Expected Outcomes/Goals: 1. Pt will consume >75% of estimated needs within 3-5 days Critical Care Time (mins): 48 Addendum Addendum Addendum I was physically present for the hooper portions of the service provided to patient by THE RESIDENT. I have reviewed the documentation, discussed the case with resident and agree with the resident's documentation except as noted. Also the patient's clinical case was discussed with the patient's nurse. This medical document was created using an electronic medical record system with computerized dictation system. Although this document has been carefully reviewed, there might still be some phonetic and typographical errors. These areas are purely typographical due to imperfections of the software programs, and do not reflect any compromise in the patient's medical care. Late signature. Date of Service: Jun 23, 2024 Billing Provider: ELENI HASTINGS MD Common Visit Codes: [id number] CARE 30-74 MIN (48 minutes) ALISIA BARBER RESIDENT Jun 23, 2024 16:49 ELENI HASTINGS MD Jun 23, 2024 22:13
[2024-06-23] MEDS: DOCUSATE SOD 100 MG CAP PO PRN (17:28)
[2024-06-23 20:00] VITALS: PULSE 71; RESP 13
[2024-06-23 22:30] VITALS: BP 107/58; PULSE 61; RESP 20; TEMP 97.8; O2SAT 91
[2024-06-24] VITALS (7 sets, daily range): BP systolic 101–131; BP diastolic 49–68; PULSE 69–80; RESP 18; TEMP 97.6–98.5; O2SAT 90–94
[2024-06-24] MEDS: MORPHINE SULFATE INJ 2 MG/ml SYRG IV PRN (16:18)
--- NOTE | 2024-06-24 17:25 | DVHPNRES ---
Progress Note Date Seen: Jun 24, 2024 Resident Creating Document: ALISIA BARBER RESIDENT Medical Necessity Reason Pt with a Central, PICC or Fol: Yes The following are medically ne: PICC Line, Acevedo Catheter Medical Necessity Reason Thigh wound grew Gram-negative rods surgery consult tomorrow Subjective Review of Systems Patient is seen and examined today at bedside She is doing well. She is no longer on any pressors and her blood pressure has been stable. At the time of my evaluation, her blood pressure was 104/49. Right this moment her blood pressure is actually 131/63. Patient has no new complaints today. She is actually scheduled to see the surgeon yesterday regarding wound debridement on her left thigh. Surgical consult has been placed. Extended the dose of morphine from q6rs and q8hrs. Objective vital signs Vital Sign Date Time Temp Pulse Resp B/P (MAP) Pulse Ox O2 Delivery O2 Flow Rate FiO2 06/24/24 16:18 71 18 131/63 06/24/24 13:00 98.5 93 98.5 06/24/24 08:00 Nasal Cannula* 3 32 Total Intake and Output 06/23/24 06/23/24 06/24/24 15:00 23:00 07:00 Intake Total 1237.5 ml 1050 ml 230 ml Output Total 2050 ml Balance 1237.5 ml 1050 ml -1820 ml medications Current Medications Medications Dose Ordered Sig/Sumanth Route Start Time Stop Time Status Last Admin Dose Admin Duloxetine HCl 60 mg DAILY PO 06/19/24 10:00 06/24/24 09:12 60 MG Gabapentin 400 mg QID PO 06/18/24 18:00 06/24/24 12:34 400 MG Gemfibrozil 600 mg BID PO 06/18/24 22:00 06/23/24 08:32 600 MG Ipratropium [place] 0.5 mg Q6HPRN PRN NEB 06/18/24 13:45 Cancel Tamsulosin HCl 0.4 mg QPM PO 06/18/24 18:00 06/23/24 17:37 0.4 MG Patient Own Medication 2 puff BID IN 06/18/24 22:00 Patient Own Medication 1 tab DAILY PO 06/19/24 10:00 UNV Patient Own Medication 1 tab DAILY PO 06/19/24 10:00 UNV Patient Own Medication 1 cap DAILY PO 06/19/24 10:00 UNV Patient Own Medication 1 cap TID PO 06/18/24 14:00 UNV Patient Own Medication 1 tab HS PO 06/18/24 22:00 UNV Patient Own Medication 1 tab QHSP PRN PO 06/18/24 13:45 UNV Al Hydrox/Mg Hydrox/Simethicone 30 ml Q6HP PRN PO 06/18/24 14:00 Docusate Sodium 100 mg BIDPRN PRN PO 06/18/24 14:00 06/23/24 17:28 100 MG Acetaminophen 650 mg Q6HP PRN PO 06/18/24 14:00 Ondansetron HCl 4 mg Q4HP PRN IV 06/18/24 14:00 06/24/24 16:26 4 MG Albuterol 90 mcg Q6HR IN 06/18/24 15:30 Cancel Folic Acid 1 mg DAILY PO 06/19/24 10:00 06/24/24 09:12 1 MG Magnesium Oxide 400 mg DAILY PO 06/19/24 10:00 06/24/24 09:12 400 MG Pantoprazole Sodium 40 mg DAILY PO 06/19/24 10:00 06/24/24 09:12 40 MG Zolpidem Tartrate 10 mg QHSP PRN PO 06/18/24 15:45 06/23/24 23:40 10 MG Quetiapine Fumarate 400 mg HS PO 06/18/24 22:00 06/24/24 06:53 400 MG Pregabalin 150 mg TID PO 06/18/24 22:00 06/24/24 15:16 150 MG Midodrine 10 mg TID@0600,1200,1800 PO 06/19/24 18:00 06/24/24 12:34 10 MG Sodium Chloride 10 ml QSHIFT@10,22 IV 06/20/24 22:00 06/24/24 09:13 10 ML Acetaminophen/ Hydrocodone Bitart 1 tab Q4HP PRN PO 06/20/24 16:00 06/24/24 12:44 1 TAB Enteral Nutritional Formula 28.8 gm DAILY PO 06/21/24 10:00 06/24/24 09:14 28.8 GM Cefepime HCl 50 ml @ 12.5 mls/hr Q8H IV 06/21/24 18:00 06/24/24 09:13 12.5 MLS/HR Enteral Nutritional Formula 240 ml BIDWM PO 06/22/24 08:00 06/24/24 08:00 240 ML Enoxaparin Sodium 40 mg DAILY SC 06/22/24 10:00 06/24/24 09:12 40 MG Dicyclomine HCl 20 mg QID PRN PO 06/22/24 15:00 Lidocaine 1 patch DAILY TOP 06/23/24 10:00 Ibuprofen 600 mg Q6HP PRN PO 06/22/24 15:00 Morphine Sulfate 1 mg Q8HP PRN IV 06/24/24 12:15 06/24/24 16:18 1 MG Examination General: Awake, alert, comfortable appearing, in no acute distress, BP pressure much better HEENT: Head is normocephalic and atraumatic. Pupils are equal, round, and reactive to light. Extraocular muscles are intact. No nasal discharge. No facial trauma. Intraoral exam shows moist mucous membranes with no tonsillar enlargement or exudate. Neck: Supple with no cervical lymphadenopathy No meningismus. No goiter. Heart: Regular rate without murmur, rub, or gallop. Lungs: Equal breath sounds bilaterally with no wheezing, rales, or rhonchi. There is no chest wall tenderness or instability. Abdomen: Mild abdominal distention with mild tenderness to palpation on lower quadrants --> somewhat improved from before. Extremities: Strong peripheral pulses. There is no clubbing, no cyanosis, and no edema. Scar and surgical site on left thigh Skin: Left thigh wound VAC Neurologic: Cranial nerves II-XII intact without motor, sensory, or cerebellar deficit, laboratory and microbiology Laboratory Tests 06/24/24 05:45 06/23/24 05:01 Test 06/23/24 05:01 Range/Units Serum Glucose 83 74-106 mg/dL Microbiology Date/Time Source Procedure Growth Status 06/23/24 07:19 Sputum Gram Stain - Final Resulted 06/23/24 07:19 Sputum Respiratory Culture - Preliminary Resulted 06/22/24 10:00 Thigh Gram Stain - Final Resulted 06/22/24 10:00 Thigh Wound Culture - Preliminary Resulted 06/21/24 10:00 Voided Urine Urine Culture - Final Complete 06/20/24 10:45 Blood Blood Culture - Preliminary NO GROWTH AFTER 72 HOURS OF INCUBATION. Resulted Problem List/Assessment/Plan Problem List/Assessment/Plan Septic shock likely due to UTI, possibly related to soft tissue infection on left thigh --> Wbc: 13.7-->8.5, lactice acid:1.9-->2.4 --> temp: 97.6, --> Complicated UTI, recent history of ESBL --> Now on Cefepime vancomycin ---> OFF PRESSORS NOW Left thigh wound --> wound on the left lateral thigh with wound VAC present ---> culture shows Gram-negative rods susceptibility pending --> surgical consult for tomorrow 06/25/2024 Complicated recurrent UTI --> Blood culture: Negative --> Meropenem--> Cefepime --> recommend urologist follow up outpatient Nephrolithiasis --> 5 mm nonobstructive left lower pole renal calculus. --> tamsulosin CAREN --> monitor cr level --> adequate hydration --> 500 ml fluid Neuropathy --> pre gabapentin Lower abdominal pain/lower back pain --> [place] 10/.325 q8hr --> Morphine q8hrs --> Dicyclomine --> Taper to PO COPD -> long history of smoking and still smoking -> desaturated at night, uses oxygen at night Chronic CHF --> Echo 02/2024: 55% Possible obstructive sleep apnea --> consider sleep studies --> night time snoring noted by partner --> BMI 32.3 Prophylaxis: pantoprazole CODE STATUS: FULL Goal of care discussed for more than 25 minutes Case and plan discussed with Dr. Yeager Plan discussed with: Patient My Orders My Orders Orders - ALISIA BARBER Procedure Category Date Status Time Morphine Sulfate PHA 06/24/24 In Process Injection 12:15 * Surgical Consult CONS 06/24/24 Transmitted Pt Request For Service PT 06/24/24 Logged 12:02 Dietary Evaluation Review Comments: 1. Continue current diet 2. F/u with wound assessment Expected Outcomes/Goals: 1. Pt will consume >75% of estimated needs within 3-5 days Date of Service: Jun 24, 2024 Billing Provider: GLORIA ACHARYA MD Common Visit Codes: [id number] INP/OBS CARE(HIGH) ALISIA BARBER Jun 24, 2024 17:25 GLORIA ACHARYA MD Jun 30, 2024 23:59
[2024-06-25 01:00] VITALS: BP 123/67; PULSE 67; RESP 17; TEMP 97.6; O2SAT 97
[2024-06-25 05:00] VITALS: BP 123/49; PULSE 69; RESP 17; TEMP 97.9; O2SAT 91
[2024-06-25 08:00] VITALS: PULSE 63
[2024-06-25 09:00] VITALS: BP 121/60; PULSE 62; RESP 18; TEMP 98.7; O2SAT 92
--- NOTE | 2024-06-25 11:00 | DVHPN2 ---
Progress Note Date Seen: Jun 25, 2024 Medical Necessity Reason Pt with a Central, PICC or Fol: Yes The following are medically ne: PICC Line, Acevedo Catheter Objective vital signs Vital Sign Date Time Temp Pulse Resp B/P (MAP) Pulse Ox O2 Delivery O2 Flow Rate FiO2 06/25/24 09:36 62 18 121/60 06/25/24 09:00 98.7 92 98.7 06/25/24 08:25 Room Air* 0 21 Total Intake and Output 06/24/24 06/24/24 06/25/24 15:00 23:00 07:00 Intake Total 1385 ml 900 ml Output Total 1500 ml Balance -115 ml 900 ml medications Current Medications Medications Dose Ordered Sig/Sumanth Route Start Time Stop Time Status Last Admin Dose Admin Duloxetine HCl 60 mg DAILY PO 06/19/24 10:00 06/25/24 09:26 60 MG Gabapentin 400 mg QID PO 06/18/24 18:00 06/25/24 05:54 400 MG Gemfibrozil 600 mg BID PO 06/18/24 22:00 06/23/24 08:32 600 MG Ipratropium [place] 0.5 mg Q6HPRN PRN NEB 06/18/24 13:45 Cancel Tamsulosin HCl 0.4 mg QPM PO 06/18/24 18:00 06/23/24 17:37 0.4 MG Patient Own Medication 2 puff BID IN 06/18/24 22:00 Patient Own Medication 1 tab DAILY PO 06/19/24 10:00 UNV Patient Own Medication 1 tab DAILY PO 06/19/24 10:00 UNV Patient Own Medication 1 cap DAILY PO 06/19/24 10:00 UNV Patient Own Medication 1 cap TID PO 06/18/24 14:00 UNV Patient Own Medication 1 tab HS PO 06/18/24 22:00 UNV Patient Own Medication 1 tab QHSP PRN PO 06/18/24 13:45 UNV Al Hydrox/Mg Hydrox/Simethicone 30 ml Q6HP PRN PO 06/18/24 14:00 Docusate Sodium 100 mg BIDPRN PRN PO 06/18/24 14:00 06/23/24 17:28 100 MG Acetaminophen 650 mg Q6HP PRN PO 06/18/24 14:00 Ondansetron HCl 4 mg Q4HP PRN IV 06/18/24 14:00 06/25/24 09:43 4 MG Albuterol 90 mcg Q6HR IN 06/18/24 15:30 Cancel Folic Acid 1 mg DAILY PO 06/19/24 10:00 06/25/24 09:26 1 MG Magnesium Oxide 400 mg DAILY PO 06/19/24 10:00 06/25/24 09:26 400 MG Pantoprazole Sodium 40 mg DAILY PO 06/19/24 10:00 06/25/24 09:26 40 MG Zolpidem Tartrate 10 mg QHSP PRN PO 06/18/24 15:45 06/24/24 21:25 10 MG Quetiapine Fumarate 400 mg HS PO 06/18/24 22:00 06/24/24 06:53 400 MG Pregabalin 150 mg TID PO 06/18/24 22:00 06/25/24 05:54 150 MG Midodrine 10 mg TID@0600,1200,1800 PO 06/19/24 18:00 06/25/24 05:54 10 MG Sodium Chloride 10 ml QSHIFT@10,22 IV 06/20/24 22:00 06/25/24 09:27 10 ML Acetaminophen/ Hydrocodone Bitart 1 tab Q4HP PRN PO 06/20/24 16:00 06/25/24 07:17 1 TAB Enteral Nutritional Formula 28.8 gm DAILY PO 06/21/24 10:00 06/25/24 09:30 28.8 GM Cefepime HCl 50 ml @ 12.5 mls/hr Q8H IV 06/21/24 18:00 06/25/24 09:27 12.5 MLS/HR Enteral Nutritional Formula 240 ml BIDWM PO 06/22/24 08:00 06/25/24 08:24 240 ML Enoxaparin Sodium 40 mg DAILY SC 06/22/24 10:00 06/25/24 09:27 40 MG Dicyclomine HCl 20 mg QID PRN PO 06/22/24 15:00 Lidocaine 1 patch DAILY TOP 06/23/24 10:00 Ibuprofen 600 mg Q6HP PRN PO 06/22/24 15:00 Morphine Sulfate 1 mg Q8HP PRN IV 06/24/24 12:15 06/25/24 09:36 1 MG laboratory and microbiology Laboratory Tests 06/24/24 05:45 06/23/24 05:01 Test 06/23/24 05:01 Range/Units Serum Glucose 83 74-106 mg/dL Problem List/Assessment/Plan Problem List/Assessment/Plan 06/25/24 patient known to me ,has a healing wound on the left thigh which was I and D'd and has a wound vac on with home health care. this is granulating well, and it is improving, can be discharged from surgical; point of view ,return to see me in two weeks Plan discussed with: Patient, Other Dietary Evaluation Review Comments: 1. Continue current diet 2. F/u with wound assessment Expected Outcomes/Goals: 1. Pt will consume >75% of estimated needs within 3-5 days KARTIK NEAL MD Jun 25, 2024 11:00
[2024-06-25] MEDS ORDERED: MID10T PO (11:18)
[2024-06-25] MEDS ORDERED: NITR-52 PO (11:18)
[2024-06-25 13:00] VITALS: BP 117/70; PULSE 65; RESP 18; TEMP 98.2; O2SAT 95
--- NOTE | 2024-06-25 15:08 | DVHDSRES ---
Discharge Summary Date of Admission Resident Creating Document: ALISIA BARBER RESIDENT Jun 18, 2024 at 15:03 Date of Discharge: Jun 25, 2024 Admitting Diagnosis Recurrent UTI hypotension recluse brown spider beat Labs/Diagnostic Data: Laboratory Results Test 06/24/24 05:45 06/23/24 15:00 06/23/24 05:01 06/21/24 03:18 Creatinine 0.61 mg/dL (0.550-1.02) Glomerular Filtration Rate Calc 102 mL/min (>90) Random Vancomycin Level 16.1 ug/mL (5-10) Influenza Type A Antigen Negative (Negative) Influenza Type B Antigen Negative (Negative) SARS-CoV-2 Antigen (Rapid) Negative (NEGATIVE) White Blood Count 6.6 10^3/uL (4.4-10.8) Red Blood Count 3.49 10^6/uL (4.0-5.20) Hemoglobin 11.6 g/dL (12.2-16.2) Hematocrit 34.5 % (36.0-46.0) Mean Corpuscular Volume 99.0 fL (80.0-100.0) Mean Corpuscular Hemoglobin 33.2 pg (28.0-32.0) Mean Corpuscular Hemoglobin Concent 33.5 g/dL (32.0-36.0) Red Cell Distribution Width 15.0 % (11.8-14.3) Platelet Count 181 10^3/uL (140-450) Mean Platelet Volume 8.1 fL (6.9-10.8) Neutrophils (%) (Auto) 53.2 % (37.0-80.0) Lymphocytes (%) (Auto) 29.7 % (10.0-50.0) Monocytes (%) (Auto) 7.2 % (0.0-12.0) Eosinophils (%) (Auto) 9.3 % (0.0-7.0) Basophils (%) (Auto) 0.6 % (0.0-2.0) Neutrophils # (Auto) 3.5 10 ^3/uL (1.6-8.6) Lymphocytes # (Auto) 2.0 10 ^3/uL (0.4-5.4) Monocytes # (Auto) 0.5 10 ^3/uL (0-1.3) Eosinophils # (Auto) 0.6 10 ^3/uL (0-0.8) Basophils # (Auto) 0 10 ^3/uL (0-0.2) Nucleated Red Blood Cells 0.1 % Sodium Level 144 mmol/L (136-145) Potassium Level 4.1 mmol/L (3.5-5.1) Chloride Level 113 mmol/L (98-107) Carbon Dioxide Level 23 mmol/L (20-31) Anion Gap 8 (5-15) Blood Urea Nitrogen 7 mg/dL (9-23) BUN/Creatinine Ratio 13.2 (10.0-20.0) Serum Glucose 83 mg/dL (74-106) Calcium Level 9.7 mg/dL (8.7-10.4) Magnesium Level 2.0 mg/dL (1.6-2.6) Total Bilirubin 0.2 mg/dL (0.2-1.0) Aspartate Amino Transferase (AST) 11 U/L (13-40) Alanine Aminotransferase (ALT) 10 U/L (7-40) Alkaline Phosphatase 73 U/L (46-116) Total Protein 5.4 g/dL (5.7-8.2) Albumin 3.5 g/dL (3.2-4.8) Test 06/20/24 15:00 06/20/24 10:45 06/20/24 08:00 06/20/24 04:25 Urine Opiates Screen Pos (NEGATIVE) Urine Fentanyl Screen Neg (NEGATIVE) Urine Barbiturates Screen Neg (NEGATIVE) Urine Phencyclidine Screen Neg (NEGATIVE) Urine Amphetamines Screen Neg (NEGATIVE) Urine Benzodiazepines Screen Neg (NEGATIVE) Urine Cocaine Screen Neg (NEGATIVE) Urine Cannabinoids Screen Neg (NEGATIVE) Prothrombin Time 10.2 sec (9.3-11.8) Prothrombin Time INR 0.96 (0.9-1.15) Lactic Acid Level 0.8 mmol/L (0.4-2.0) Direct Bilirubin < 0.1 mg/dL (<0.3) B-Type Natriuretic Peptide 284.91 pg/mL (0-100) Test 06/18/24 12:57 06/18/24 09:21 Troponin I High Sensitivity < 3 ng/L (</=34) Urine Color Yellow (Yellow) Urine Clarity Turbid (Clear) Urine pH 5.0 (5.0-9.0) Urine Specific [place] 1.008 (1.001-1.035) Urine Protein Negative (Negative) Urine Ketones Negative (Negative) Urine Blood Trace /uL (Negative) Urine Nitrite Negative (Negative) Urine Bilirubin Negative (Negative) Urine Urobilinogen Normal mg/dL (Negative) Urine Leukocyte Esterase 3+ /uL (Negative) Urine RBC 7 /hpf (0 - 4) Urine WBC 705 /hpf (0 - 5) Urine WBC Clumps Present /hpf (None Seen) Urine Squamous Epithelial Cells Few /hpf (<5) Urine Bacteria Few /hpf (None Seen) Urine Mucus Few (None Seen) Urine Glucose Normal mg/dL (Normal) Other Laboratory Tests 06/24/24 05:45 06/23/24 05:01 Brief Hx & Hospital Course: Ms Schroeder is a 59-year-old patient with a history of CHF, COPD, carotid stenosis, gout, neuropathy hypertension, dysuria and hyperlipidemia patient came to the ED for evaluation of complaints of flank pain that has been on and off. Patient was recently managed for UTI early in [facility] and was sent home with home health for antibiotic management. She presented on 06/18/2024 with lower abdominal pain, dysuria, burning with urination and lower back pain has been worsening for 7 days prior to admission. Patient denied any nausea vomiting, fever or chills. Initial vitals in the ED revealed temperature 98, pulse 98, respiratory 20 and BP: 109/66. CT abdomen revealed 5mm non-obstructive left lower pole renal calculus. Patient started running low blood pressures that didn't not improved even with bolus IV normal saline. We started treating patient for septic shock with meropenem. Attempt to place a central line was unsuccessful. Thus a PICC was placed instead and started on levophed. Blood and urine culture came back negative for any bacteria growth. Antibiotic de- escalated antibiotic from Meropenem to Cefepime. Patient remain in levophed and tapered off slowly for over couple of days. Since yesterday morning, patient has been off levophed and her BP remain stable. Patient also has a wound on her left thigh from a brown recluse spider bite. Wound culture grew few Gram-negative rods. Patient seen by surgeon today regarding the left thigh wound. No surgical intervention need at this time. She will follow up with the surgeon on outpatient. Examination Vitals: Temp: 98.2. BP: 117/76, Pulse:65, RR: 18 General: Awake, alert, comfortable appearing, in no acute distress. HEENT: Head is normocephalic and atraumatic. Pupils are equal, round, and reactive to light. Extraocular muscles are intact. No nasal discharge. No facial trauma. Intraoral exam shows moist mucous membranes with no tonsillar enlargement or exudate. Neck: Supple with no cervical lymphadenopathy No meningismus. No goiter. Heart: Regular rate without murmur, rub, or gallop. Lungs: Equal breath sounds bilaterally with no wheezing, rales, or rhonchi. There is no chest wall tenderness or instability. Abdomen: Mild abdominal distention with mild tenderness to palpation on lower quadrants Extremities: Strong peripheral pulses. There is no clubbing, no cyanosis, and no edema. Scar and surgical site on left thigh Skin: Left thigh wound VAC Neurologic: Cranial nerves II-XII intact without motor, sensory, or cerebellar deficit, no asterixis. Diagnoses managed on this admission Septic shock likely due to UTI, possibly related to soft tissue infection on left thigh Left thigh wound Complicated recurrent UTI Nephrolithiasis CAREN Neuropathy Lower abdominal pain/lower back pain COPD Chronic CHF Possible obstructive sleep apnea From our medical stand point, patient is stable for discharge. Will send her home with Nitrofuratoin 100mg bid and Midodrine 10mg po TID today and she will followup with the Surgeon in 2 weeks. Discharge and post discharge plan discussed with Dr. Varela Consults/Reason for consult left thing wound from a spider bite Operations or Procedures PATIENT: DONA SCHROEDERACCT: [id number] UNIT: [id number] : 1965 LOC: OVERFLOW ROOM / BED: [address] [place] [address] / AGE / SEX: 59 / F ADM STATUS: ADM IN SERVICE 0700 ORDERING PHYSICIAN: MIKE ASHFORD RESIDENT PROCEDURE(s): CXRP - CHEST PORTABLE REASON: SOB ORDER NUMBER(s): [id number], ACCESSION NUMBER(s): [id number] XY CHEST PORTABLE, HISTORY: SOB COMPARISON: XY CHEST PORTABLE on DOS: 06/20/24, XY CHEST PORTABLE on DOS: 06/18/24, XY CHEST XRAY 1 VIEW on DOS: 05/24/24 XY CHEST PORTABLE on DOS: 06/20/24, XY CHEST PORTABLE on DOS: 06/18/24, XY CHEST XRAY 1 VIEW on DOS: 05/24/24 TECHNICAL DATA: 1 view of the chest was obtained. FINDINGS: Lines and tubes: Right arm PICC in the SVC. Cardiomediastinal silhouette: enlarged Pulmonary vasculature: prominent Lung expansion: normal Lung airspace: normal Lung interstitium: normal Pleura: normal Pneumothorax: no Bones: Unremarkable Other: no IMPRESSION: Mild cardiomegaly with pulmonary vascular congestion. ATED BY: REMY DUARTE MD DICTATED DATE/TIME: 06/23/24 0812 ORDERING PHYSICIAN: MIKE ASHFORD PROCEDURE(s): RSHD2 - R SHOULDER 2+ VIEW XRAY REASON: shoulder pain s/p fall ORDER NUMBER(s): [id number], ACCESSION NUMBER(s): [id number] CLINICAL INFORMATION: 59 years old, Female; shoulder pain status post fall injury. TECHNIQUE: 3 views of the left shoulder were obtained. COMPARISON: No prior imaging of either shoulder was available for comparison at the time of dictation. FINDINGS: No acute fracture or dislocation. [id number] arthritic changes are seen in the acromioclavicular joints. Likely moderate arthritic changes in the left glenohumeral joint with osseous spurring of the inferior glenoid. Overlying soft tissues are grossly unremarkable. IMPRESSION: 1. No evidence of acute fracture. 2. Nonacute findings as described above. Correlate with clinical findings. ATED BY: UMANG ARIAS DO DICTATED DATE/TIME: 06/22/24 1158 PATIENT: DONA SCHROEDERACCT: [id number] UNIT: [id number] : 1965 LOC: OVERFLOW ROOM / BED: 1026-ER / A AGE / SEX: 59 / F ADM STATUS: ADM IN SERVICE 1333 ORDERING PHYSICIAN: MIKE ASHFORD PROCEDURE(s): USGUIVASAC - US Guided Vascular Access REASON: PICC line insertion ORDER NUMBER(s): [id number], ACCESSION NUMBER(s): [id number] Exam: US US GUIDED VASCULAR ACCESS Clinical History: PICC line insertion Comparison: None Findings: Targeted sonographic evaluation of the arm vein was obtained utilizing grayscale and color Doppler imaging. IMPRESSION: Sonographic assistance for central line placement. Please refer to procedural report for detailed findings. ATED BY: LARS ARMENTA MD DICTATED DATE/TIME: 06/22/24 1637 PATIENT: DONA SCHROEDERT: [id number] UNIT: [id number] : 1965 LOC: OVERFLOW ROOM / BED: [address] [place] [address] / AGE / SEX: 59 / F ADM STATUS: ADM IN SERVICE 1020 ORDERING PHYSICIAN: MIKE ASHFORD RESIDENT PROCEDURE(s): CXRP - CHEST PORTABLE REASON: central line attempt ORDER NUMBER(s): [id number], ACCESSION NUMBER(s): [id number] CLINICAL INFORMATION: 59 years old, Female; central line attempt. TECHNIQUE: Single AP portable chest radiograph was obtained. COMPARISON: XY CHEST PORTABLE on DOS: 06/18/24, XY CHEST XRAY 1 VIEW on DOS: 05/24/24, XY CHEST PORTABLE on DOS: 03/19/24 FINDINGS: Right internal jugular central venous catheter distal tip is at the right brachiocephalic vein, not reaching the SVC. There is additional catheter tubing overlying the right upper lung, which is likely outside the patient. Bilateral interstitial opacities, slightly more conspicuous compared to the prior exam. No focal consolidation. No pneumothorax or pleural effusion. No other significant interval change. IMPRESSION: 1. Distal tip of a right internal jugular central venous catheter is at the level of the right brachiocephalic vein. 2. No pneumothorax. 3. Interstitial opacities appear increased compared to the prior exam, possibly interstitial pulmonary edema or atypical infectious process. ATED BY: UMANG ARIAS DO DICTATED DATE/TIME: 06/20/24 1115 PATIENT: DONA SCHROEDERT: [id number] UNIT: [id number] : 1965 LOC: OVERFLOW ROOM / BED: 102- / AGE / SEX: 59 / F ADM STATUS: ADM IN SERVICE 6 ORDERING PHYSICIAN: MIKE ASHFORD RESIDENT PROCEDURE(s): LLEX - LEFT LOWER EXTREMITY W/O CON REASON: left thigh wound, eval for depth of infection, abscess. ORDER NUMBER(s): [id number], ACCESSION NUMBER(s): [id number] CLINICAL INFORMATION: 59 years old, Female; left thigh wound, eval for depth of infection, abscess. TECHNIQUE: Axial CT images of the left thigh were obtained without IV contrast. Coronal and sagittal reformatted images were obtained, reviewed, and stored. All CT scans at this medical facility are performed using dose modulation techniques as appropriate to a performed exam including the following: Automated exposure control was utilized; adjustment of the MA and/or KV according to patient size; and use of iterative reconstruction technique. CTDIvol = 17.48, 0.07, 0.07 mGy DLP = 832.86 mGy-cm COMPARISON: US LEFT LOWER EXTREMITY ULTRASOUN on DOS: 03/20/24, CT LEFT LOWER EXTREMITY W/O CON on DOS: 03/19/24 FINDINGS: There is a wound at the posterior lateral aspect of the proximal left thigh measuring up to 3.4 cm in greatest transverse dimension and 2.9 cm in greatest craniocaudal dimension, extending up to 1.3 cm in depth. There is adjacent soft tissue stranding, possible cellulitis or nonspecific inflammation. No adjacent organized fluid collection identified. Additional areas of subcutaneous edema are seen more proximally within the subcutaneous tissues lateral to the left hip, which are nonspecific. Moderate fatty changes are seen in the left gluteus medius and minimus muscles. No acute osseous abnormality identified. Moderate arthritic changes are seen in the left hip. Acevedo catheter extends into the bladder. Nonspecific nondilated fluid-filled small bowel loops. Scattered stool visualized in the colon. IMPRESSION: 1. Wound at the posterior lateral aspect of the proximal left thigh as described above with mild adjacent stranding, possible cellulitis in the appropriate clinical setting, or nonspecific inflammation. 2. Additional nonacute findings as detailed above. ATED BY: UMANG ARIAS DO DICTATED DATE/TIME: 06/20/24 1359 ORDERING PHYSICIAN: MIKE ASHFORD RESIDENT PROCEDURE(s): ABPL - CT AB PEL WO CON-NO ORAL OR IV REASON: r/o renal abscess, nephrolithiasis ORDER NUMBER(s): [id number], ACCESSION NUMBER(s): [id number] CT ABDOMEN AND PELVIS WITHOUT CONTRAST CLINICAL HISTORY: r/o renal abscess, nephrolithiasis TECHNIQUE: Multiple contiguous axial images of the abdomen and pelvis without intravenous contrast. The images were reformatted degenerate coronal and sagittal reconstructions. All CT scans at this medical facility are performed using dose modulation techniques as appropriate to a performed exam including the following:Automated exposure control was utilized; adjustment of the MA and/or KV according to patient size; and use of iterative reconstruction technique. Radiation Dose Information: CT Dose: CTDI volume is 23.62 mGy. Dose-length product is 1299.66 mGy*cm Comparison: CT CT AB PEL WITH IV CON ONLY on DOS: 05/27/24, [facility] on DOS: 07/04/22 FINDINGS: Evaluation of the abdomen and pelvis is limited without intravenous contrast. There is a 5 mm calculus in the lower pole of the left kidney. There is no right renal calculus. There is no hydronephrosis. There is no evidence of a ureteral calculus or hydroureter. Gallbladder is surgically absent. There is intrahepatic and extrahepatic biliary ductal dilatation which is likely postsurgical. There are scattered punctate calcified granulomas in the spleen. The liver, pancreas, and adrenal glands, appear within normal limits. There is no gross evidence of abdominal lymphadenopathy. There is no free fluid or free air. There is a small fat containing umbilical hernia. There are postsurgical changes related to gastric sleeve surgery. The small and large bowel loops demonstrate normal caliber. Air intermixed with moderate amount of stool is seen in the colon. The abdominal aorta and IVC appear within normal limits. The bladder appears unremarkable for the degree of distention. There is a small calcification in the body of the uterus which may represent a calcified leiomyoma.. There is no gross evidence of a pelvic mass. There is no free fluid collection. There is scarring versus atelectasis in the right posterior lung base. The left lung base is clear. There is no acute osseous abnormality. There are multilevel degenerative changes in the lower lumbar spine. IMPRESSION: 1. 5 mm nonobstructive left lower pole renal calculus. 2. Cholecystectomy with likely postsurgical intrahepatic and extrahepatic biliary ductal dilatation. 3. Moderate amount of stool in the colon. 4. Scattered punctate calcified granulomas in the spleen. HS:Y ATED BY: TJ PRYOR MD DICTATED DATE/TIME: 06/19/24 1243 PATIENT: DONA SCHROEDERACCT: [id number] UNIT: [id number] : 1965 LOC: ER ROOM / BED: / AGE / SEX: 59 / F ADM STATUS: REG ER SERVICE 0934 ORDERING PHYSICIAN: KAYLYNN RENNER MD PROCEDURE(s): CXRP - CHEST PORTABLE REASON: weakness ORDER NUMBER(s): [id number], ACCESSION NUMBER(s): [id number] CHEST RADIOGRAPH Indication: weakness Technique: Single frontal view of the chest was obtained COMPARISON: XY CHEST XRAY 1 VIEW on DOS: 05/24/24, XY CHEST PORTABLE on DOS: 03/19/24, XY CHEST PORTABLE on DOS: 06/21/23 FINDINGS: Lines and Tubes: None Lungs: Bibasilar subsegmental atelectasis. Pleura: No effusion. No pneumothorax. Cardiomediastinal contours: Unremarkable Bones: Unremarkable IMPRESSION: Bibasilar subsegmental atelectasis. ATED BY: LARS ARMENTA MD DICTATED DATE/TIME: 06/18/24 1007 Condition at Discharge: Good Final Diagnosis/Problems List Septic shock likely due to UTI, possibly related to soft tissue infection on left thigh Left thigh wound Complicated recurrent UTI Nephrolithiasis CAREN Neuropathy Lower abdominal pain/lower back pain COPD Chronic CHF Possible obstructive sleep apnea Discharge Disposition: Home Discharge Instruct/Medications Diet: Regular Activity: No Restrictions, As Tolerated Follow Up/Referral: [facility] [place] [facility] Medications: continue home meds as prescribed continue nitrofurantoin Discharge Statement: "Patient was advised to return to the ER or call 911 if any headaches, dizziness, shortness of breath, chest pain, abdominal pain, bleeding, fevers, or worsening of medical condition. Patient was counseled about treatment plan, medications, possible side effects, patientverbalized understanding. All questions were answered to the best of my ability. This discharge took greater then 30 minutes in planning, reviewing documentation, counseling the patient, and discussing with other team members." ASSESSMENT ASSESSMENT Assessment uti Date of Service: Jun 25, 2024 Billing Provider: GLORIA ACHARYA MD Common Visit Codes: 79769-OFO/OBS DISCH DAY >30min ALISIA BARBER RESIDENT Jun 25, 2024 15:08 GLORIA ACHARYA MD Jun 30, 2024 23:52
== END 2024-06-25 15:07 | disposition home or self-care (01) | DRG 720 ==
LOC: ER 09:14 → OVERFLOW 15:03 → TELE-WESTW 06-23 22:05
PROVIDERS: ADMIT Student in an Organized Health Care Education/Training Program; ATTEND Student in an Organized Health Care Education/Training Program
PROC: 02HV33Z Insertion of Infusion Device into Superior Vena Cava, Percutaneous Approach (ICD-10-PCS; principal; 2024-06-20)
PROC: B548ZZA Ultrasonography of Superior Vena Cava, Guidance (ICD-10-PCS; 2024-06-20)
PROC: 05JY3ZZ Inspection of Upper Vein, Percutaneous Approach (ICD-10-PCS; 2024-06-20)
DX: A41.9 Sepsis, unspecified organism (principal); N17.0 Acute kidney failure with tubular necrosis; R65.21 Severe sepsis with septic shock; S71.102A Unspecified open wound, left thigh, initial encounter; E11.9 Type 2 diabetes mellitus without complications; N12 Tubulo-interstitial nephritis, not specified as acute or chronic; I11.0 Hypertensive heart disease with heart failure; I50.9 Heart failure, unspecified; E78.5 Hyperlipidemia, unspecified; J44.9 Chronic obstructive pulmonary disease, unspecified; F17.210 Nicotine dependence, cigarettes, uncomplicated; N20.0 Calculus of kidney; G62.9 Polyneuropathy, unspecified; L08.89 Other specified local infections of the skin and subcutaneous tissue; G47.33 Obstructive sleep apnea (adult) (pediatric); I25.10 Atherosclerotic heart disease of native coronary artery without angina pectoris; Z90.49 Acquired absence of other specified parts of digestive tract; Z82.49 Family history of ischemic heart disease and other diseases of the circulatory system; X58.XXXA Exposure to other specified factors, initial encounter; Y93.89 Activity, other specified; Y92.89 Other specified places as the place of occurrence of the external cause; Y99.8 Other external cause status
CPT/HCPCS: 36415; 36569; 71045; 73030; 73700; 74176; 76937; 80048; 80053; 80076; 80202; 80307; 81001; 82565; 83605; 83735; 83880; 84484; 85025; 85610; 87040; 87070; 87077; 87081; 87086; 87186; 87205; 87426; 87804; 96365; 96368; 96375; 97163; G0378; J0692; J2185; J2405

== ENCOUNTER 2024-08-20 08:46 | Inpatient (IN) | payer MEDICAID ==
[~2024-08-20] VITALS: Ht 172.7 cm; Wt 96.0 kg
[~2024-08-20 08:46] MED LIST changes: -DICY20TA PO; -FENO54TA4 PO; -GEMF-66 PO; +MID10T PO; +NITR-52 PO; -TAMS0.4C39 PO
[2024-08-20] MEDS ORDERED: NALOXONE HCL 1MG/ML 2ML SYRINGE ONE (08:52)
[2024-08-20] MEDS: NALOXONE HCL 1MG/ML 2ML SYRINGE IV ONE (08:52)
--- NOTE | 2024-08-20 08:58 | ED.PDOC ---
Altered Mental Status HPI Comments 59 y/o F, brought in by ambulance with PMHX of COPD and CHF presents to the ED for CC of ALOC. Per EMS, patient is coming from home where she was found by family altered. Per EMS, patient was admitted and discharged from [facility] for DX: sepsis. Per family, patient was prescribed antibiotics for septic shock; when family went to cloth picker medication no prescription was ordered. Due to patient's altered level of consciousness no other medical history is obtainable at this time. Chief Complaint: ALOC Time Seen by MD: 08:50 Primary Care Provider: FRANCISCO J Reviewed Notes: Nurses Notes, Country Sales Manager Notes, Medications, Allergies Allergies: Coded Allergies: Codeine (Unverified Allergy, Unknown, 06/21/23) Influenza Vaccines (Unverified Allergy, Unknown, 06/21/23) Pneumococcal Vaccines (Unverified Allergy, Unknown, 06/21/23) Home Meds Active Scripts Nitrofurantoin (Nitrofurantoin) 100 Mg Cap, 1 CAP PO BID for 7 Days, #14 CAP Prov:MIKE ASHFORD RESIDENT 06/25/24 Midodrine HCl (Midodrine HCl) 10 Mg Tab, 10 MG PO TID@0600,1200,1800 for 30 Days, #90 TAB 1 Refill Prov:MIKE ASHFORD RESIDENT 06/25/24 Spironolactone (Aldactone) 25 Mg Tab, 25 MG PO BIDD, #60 TAB Prov:MELISSA MCNALLY MD 07/11/22 Ipratropium [place] (Ipratropium [place]) 0.02 % Shanique, 0.5 MG NEB Q6HPRN PRN, #30 ML Prov:MELISSA MCNALLY MD 07/11/22 Duloxetine Hydrochloride (Duloxetine Hydrochloride) 30 Mg Cap, 60 MG PO DAILY, #60 CAP Prov:MELISSA MCNALLY MD 07/11/22 Reported Medications Lidocaine (Lidocaine) 5 % Pad, 1-2 PAD EX DAILY for 60 Days, #10 05/30/24 Folic Acid (Folic Acid) 1 Mg Tab, 1 TAB PO DAILY for 30 Days, #30 05/30/24 Cholecalciferol (Vitamin D-3) 5,000 Unit Cap, 1 CAP PO DAILY for 90 Days, #90 05/30/24 Albuterol Sulfate (Albuterol Sulfate Hfa) 108 Mcg/Act Aer, 2 PUFF IN Q4HR PRN for 33 Days, #17 05/30/24 Omeprazole (Omeprazole Dr) 40 Mg Cap, 1 CAP PO DAILY for 30 Days, #30 05/30/24 Umpomhksie-Exdofvbyuqqwwd-Xrua (Breztri Aerosphere 160-9-4.8 Mcg/Act) 1 Aer Aer, 2 PUFF IN BID for 30 Days, #10.7 05/30/24 Albuterol Sulfate (Albuterol Sulfate) 0.083 % Neb, 1 VIAL NEB Q6HR for 12 Days, #150 05/30/24 Diclofenac Sodium (Topical) (Voltaren Arthritis Pain) 1 % Gel, 1-2 GRAMS EX BID PRN for 25 Days, #100 APPLY 1-2 GRAMS TO AFFECTED AREA TWICE A DAY NEEDED. 05/30/24 Magnesium Oxide (MAGNESIUM OXIDE) 400 Mg Tab, 1 TAB PO DAILY for 30 Days, #30 05/30/24 Carvedilol (Carvedilol) 12.5 Mg Tab, 0.5 TAB PO BID for 90 Days, #90 05/30/24 Gabapentin (Gabapentin) 400 Mg Cap, 1 CAP PO QID for 30 Days, #120 03/20/24 Quetiapine Fumerate (QUETIAPINE FUMARATE) 400 Mg Tab, 1 TAB PO HS 03/20/24 Pregabalin (Pregabalin) 150 Mg Cap, 1 CAP PO TID for 30 Days, #90 03/20/24 Zolpidem Tartrate (Zolpidem Tartrate) 10 Mg Tab, 1 TAB PO QHSP PRN for FOR INSOMNIA 03/20/24 Furosemide (Furosemide) 40 Mg Tab, 1 TAB PO BID 03/20/24 Hydrocodone-Acetaminophen (Hydrocodone/Acetaminophen 10-325 mg) 1 Tab Tab, 1 TAB PO Q4-6HR PRN for 30 Days, #160 07/08/22 Temazepam (Temazepam) 30 Mg Cap, 1 CAP PO HS, #30 CAP 1 Refill 10/18/17 Information Source: Patient, Emergency Med Personnel Mode of Arrival: EMS Severity: Mild Timing: Minutes Duration: Since onset Prehospital treatment: None Quality: None Recent: None Associated Signs and Symptoms: None Past Medical History PAST MEDICAL HISTORY: Angina, Anxiety, CHF, COPD, Depression, High Lipids, HTN Surgical History: Cholecystectomy, , Tonsillectomy 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 SCOOP OPERATOR History Family History Family History: Family hx of Cancer, Family hx of heart pedro pablo, Family hx of HTN Family History (Other): CHF Social History Smoker: Cigarettes Alcohol: Denies ETOH Use Drugs: Denies Drug Use Lives In: Home Constitutional: denies: chills, diaphoresis, fatigue, fever, malaise, sweats, weakness, others EENTM: denies: blurred vision, double vision, ear bleeding, ear discharge, ear drainage, ear pain, ear ringing, eye pain, eye redness, hearing loss, mouth pain, mouth swelling, nasal discharge, nose bleeding, nose congestion, nose pain, photophobia, tearing, throat pain, throat swelling, voice changes, others Respiratory: denies: cough, hemoptysis, orthopnea, SOB at rest, shortness of breath, SOB with excertion, stridor, wheezing, others Cardiovascular: denies: chest pain, dizzy spells, diaphoresis, Dyspnea on exertion, edema, irregular heart beat, left arm pain, lightheadedness, palpitations, PND, syncope, others Gastrointestinal: denies: abdomen distended, abdominal pain, blood streaked bowels, constipated, diarrhea, dysphagia, difficulty swallowing, hematemesis, me christiane, nausea, poor appetite, poor fluid intake, rectal bleeding, rectal pain, vomiting, others Genitourinary: denies: abnormal vagina bleeding, burning, dyspareunia, dysuria, flank pain, frequency, hematuria, incontinence, pain, , vagina discharge, urgency, others Neurological: denies: dizziness, fainting, headache, left sided numbness, left sided weakness, numbness, paresthesia, pre-existing deficit, right sided numbness, right sided weakness, seizure, speech problems, tingling, tremors, weakness, others Musculoskeletal: denies: back pain, gout, joint pain, joint swelling, muscle pain, muscle stiffness, neck pain, others Integumetry: denies: bruises, change in color, change in hair/nails, dryness, laceration, lesions, lumps, rash, wounds, others Allergic/Immunocompromised: denies: Difficulty Healing, Frequent Infections, Hives, Itching, others Hematologic/Lymphatic: denies: anemia, blood clots, easy bleeding, easy bruising, swollen glands, others Endocrine: denies: excessive hunger, excessive sweating, excessive thirst, excessive urination, flushing, intolerance to cold, intolerance to heat, unexplained weight gain, unexplained weight loss, others Psychiatric: denies: anxiety, bipolar disorder, depression, hopeless, panic disorder, schizophrenia, sleepless, suicidal, others Unable to Obtain due to: Altered Mental Status Physical Exam General Appearance: Severe Distress HEENT: Normal ENT Inspection, Pharynx Normal, TMs Normal Neck: Full Range of Motion, Non-Tender, Normal, Normal Inspection Respiratory: Accessory Muscle Use, Chest Non-Tender, Respiratory Distress Cardiovascular: No Edema, No JVD, No Murmur, No Gallop, Normal Peripheral Pulses, Regular Rate/Rhythm Breast Exam: Deferred Gastrointestinal: No Organomegaly, Non Tender, No Pulsatile Mass, Normal Bowel Sounds, Soft Genitalia: Deferred Pelvic: Deferred Rectal: Deferred Extremities: No calf tenderness, Normal capillary refill, Normal range of motion, Non-tender, No pedal edema Musculoskeletal : Apperance: Normal Neurologic: Disoriented, No Motor Deficits, Normal Affect, Normal Mood, No Sensory Deficits Cerebellar Function: NOT DONE Reflexes: NOT DONE Skin: Dry, Normal Color, Warm, Wounds (Decubitus) Peripheral Pulses: 3+ Radial (R), 3+ Radial (L) Lymphatic: No Adenopathy Was a procedure done? Was a procedure done?: No Differential Diagnosis (ALOC) Differential Diagnosis: Dehydration, Encephalopathy, Sepsis X-Ray, Labs, Meds, VS Vital Signs Date Time Temp Pulse Resp B/P (MAP) Pulse Ox O2 Delivery O2 Flow Rate FiO2 08/20/24 09:42 20 95 Nasal Cannula* 5 40 08/20/24 08:49 83 08/20/24 08:46 97.2 85 20 114/65 (81) 98 Lab Test 08/20/24 09:29 08/20/24 09:16 Range/Units White Blood Count 13.0 H 4.4-10.8 10^3/uL Red Blood Count 4.38 4.0-5.20 10^6/uL Hemoglobin 14.1 12.2-16.2 g/dL Hematocrit 43.4 36.0-46.0 % Mean Corpuscular Volume 98.9 80.0-100.0 fL Mean Corpuscular Hemoglobin 32.1 H 28.0-32.0 pg Mean Corpuscular Hemoglobin Concent 32.5 32.0-36.0 g/dL Red Cell Distribution Width 13.6 11.8-14.3 % Platelet Count 206 140-450 10^3/uL Mean Platelet Volume 9.3 6.9-10.8 fL Neutrophils (%) (Auto) 86.5 H 37.0-80.0 % Lymphocytes (%) (Auto) 6.4 L 10.0-50.0 % Monocytes (%) (Auto) 4.6 0.0-12.0 % Eosinophils (%) (Auto) 2.1 0.0-7.0 % Basophils (%) (Auto) 0.4 0.0-2.0 % Neutrophils # (Auto) 11.3 H 1.6-8.6 10 ^3/uL Lymphocytes # (Auto) 0.8 0.4-5.4 10 ^3/uL Monocytes # (Auto) 0.6 0-1.3 10 ^3/uL Eosinophils # (Auto) 0.3 0-0.8 10 ^3/uL Basophils # (Auto) 0.1 0-0.2 10 ^3/uL Nucleated Red Blood Cells 0.0 % Sodium Level 142 136-145 mmol/L Potassium Level 3.7 3.5-5.1 mmol/L Chloride Level 105 98-107 mmol/L Carbon Dioxide Level 31 20-31 mmol/L Anion Gap 6 5-15 Blood Urea Nitrogen 31 H 9-23 mg/dL Creatinine 1.06 H 0.550-1.02 mg/dL Glomerular Filtration Rate Calc 60 >90 mL/min BUN/Creatinine Ratio 29.2 H 10.0-20.0 Serum Glucose 113 H 74-106 mg/dL Lactic Acid Level 1.1 0.4-2.0 mmol/L Calcium Level 10.0 8.7-10.4 mg/dL Troponin I High Sensitivity 4 </=34 ng/L B-Type Natriuretic Peptide 21.25 0-100 pg/mL Urine Color Light-yellow Yellow Urine Clarity Clear Clear Urine pH 6.0 5.0-9.0 Urine Specific Ransom 1.014 1.001-1.035 Urine Protein Trace H Negative Urine Ketones Negative Negative Urine Blood Negative Negative /uL Urine Nitrite Negative Negative Urine Bilirubin Negative Negative Urine Urobilinogen Normal Negative mg/dL Urine Leukocyte Esterase Negative Negative /uL Urine RBC 1 0 - 4 /hpf Urine Microscopic WBC 2 0-5 /HPF Urine Squamous Epithelial Cells None seen <5 /hpf Urine Bacteria Few H None Seen /hpf Urine Hyaline Casts Few 0 - 2 /lpf Urine Glucose Normal Normal mg/dL Current Medications Medications (Trade) Dose Ordered Sig/Sumanth Route Start Time Stop Time Status Last Admin Naloxone HCl (Narcan) 1 mg ONCE ONCE IV 08/20/24 08:50 08/20/24 09:05 DC 08/20/24 08:53 Sodium Chloride 1,000 ml @ 150 mls/hr Q6H40M ONCE IV 08/20/24 09:15 08/20/24 15:54 08/20/24 09:15 Methylprednisolone Sodium Succinate (Solu Medrol) 125 mg ONCE ONCE IV 08/20/24 09:15 08/20/24 09:16 DC 08/20/24 10:11 Albuterol (Ventolin Medneb) 5 mg ONCE ONCE NEB 08/20/24 09:15 08/20/24 09:16 DC 08/20/24 09:39 Ipratropium [place] (Atrovent Medneb) 0.5 mg ONCE ONCE NEB 08/20/24 09:15 08/20/24 09:16 DC 08/20/24 09:39 Magnesium Sulfate/ Dextrose 100 ml @ 100 mls/hr ONCE ONCE IV 08/20/24 09:15 08/20/24 10:14 DC 08/20/24 10:06 Ertapenem 1 gm/ Sodium Chloride 50 ml @ 100 mls/hr ONCE ONCE IV 08/20/24 10:00 08/20/24 10:29 DC 08/20/24 10:36 [place] [id number] Ph: [phone] DIAGNOSTIC IMAGING Diagnostic Imaging Report : [id number] Signed PATIENT: DONA WONGT: [id number] UNIT: [id number] : 1965 LOC: ER ROOM / BED: / AGE / SEX: 59 / F ADM STATUS: REG ER SERVICE 5 ORDERING PHYSICIAN: JESSICA SALAS MD PROCEDURE(s): CXRP - CHEST PORTABLE REASON: sob ORDER NUMBER(s): [id number], ACCESSION NUMBER(s): [id number] CHEST RADIOGRAPH Indication: sob Technique: Single frontal view of the chest was obtained COMPARISON: XY CHEST PORTABLE on DOS: 06/23/24, XY CHEST PORTABLE on DOS: 06/20/24, XY CHEST PORTABLE on DOS: 06/18/24, XY CHEST XRAY 1 VIEW on DOS: 05/24/24, XY CHEST PORTABLE on DOS: 03/19/24 FINDINGS: Lines and Tubes: None Lungs: Left basilar subsegmental atelectasis. Pleura: No effusion. No pneumothorax. Cardiomediastinal contours: Unremarkable Bones: Chronic appearing right posterior 7th rib fracture. IMPRESSION: Left basilar subsegmental atelectasis. ATED BY: LARS ARMENTA MD DICTATED DATE/TIME: 08/20/24922 SIGNED BY: LARS ARMENTA MD SIGNED DATE/TIME: 08/20/24922 CC: [place] [id number] Ph: [phone] DIAGNOSTIC IMAGING Diagnostic Imaging Report : [id number] Signed PATIENT: DONA WONGACCT: [id number] UNIT: [id number] : 1965 LOC: ER ROOM / BED: / AGE / SEX: 59 / F ADM STATUS: REG ER SERVICE 1044 ORDERING PHYSICIAN: JESSICA SALAS MD PROCEDURE(s): HWOCT - HEAD WITHOUT CONTRAST REASON: altered ORDER NUMBER(s): [id number], ACCESSION NUMBER(s): [id number] EXAM: CT HEAD WITHOUT CONTRAST HISTORY: altered COMPARISON: CT HEAD WITHOUT CONTRAST on DOS: 05/26/24, CT CHEST WITHOUT CONTRAST on DOS: 03/20/24 TECHNIQUE: Axial images of the head were obtained and reformatted in coronal and sagittal planes. All CT scans at this medical facility are performed using dose modulation techniques as appropriate to a performed exam including the following: Automated exposure control was utilized; adjustment of the MA and/or KV according to patient size; and use of iterative reconstruction technique. CT Dose: CTDI volume is 59 mGy. Dose-length product is 1168 mGy*cm FINDINGS: There is no evidence of acute intracranial hemorrhage, mass, mass effect midline shift. There is no hydrocephalus or extra-axial fluid collection. Sorensen-white matter differentiation is maintained. There is a small retention cyst in the left maxillary sinus. The mastoid air cells are clear. The calvarium is intact. IMPRESSION: 1. No acute intracranial process. HS:Y ATED BY: TJ PRYOR MD DICTATED DATE/TIME: 08/20/241121 SIGNED BY: TJ PRYOR MD SIGNED DATE/TIME: 08/20/241121 CC: Patient does answer to name. Can not explain why she is in the ER. After reviewing her chart she was discharged from [facility] yesterday. She is on oxygen. Respiratory distress. Using accessory muscles. Was given Narcan with mild change. Was given breathing treatment. Continue oxygen. She does smoke cigarettes. Possible sepsis. Has decubitus ulcer. Establish intravenous access. Was given fluids. Blood culture. Was given Zosyn. Was given clindamycin. Chest x-ray reviewed does not show any acute changes. Possible pneumonitis. Time of 1ST Reevaluation: 09:20 Reevaluation 1ST: Unchanged Patient Education/Counseling: Diagnosis, Treatment Family Education/Counseling: Diagnosis, Treatment Additional Information I reviewed the following notes from patient's past medical encounters: 06/18/24 DX: SUSPECTED PYELONEPHRITIS The following tests were ordered, and results were reviewed by me: CXR, HEAD CT, EKG, TROPONIN, CBC, BMP, B-TYPE NATRIURETIC PEPTIDE, UA, LACTIC Additional Information was gathered from interviewing the following independent historians: EMS I reviewed and agreed with the following test results read by other providers: CXR, HEAD CT I discussed treatment and results with medical personnel and: FAMILY Departure 1 Departure Time of Disposition: 09:53 Impression: Primary Impression: Metabolic encephalopathy Additional Impressions: COPD exacerbation Decubitus ulcer of left hip, stage 2 Disposition: 09 ADMITTED INPATIENT Admit to: Med Surg Condition: Guarded Critical Care Note Critical Care Time?: Yes (90 min-critical care time only) Stability Stability form required: No Heart Score Heart Score: Heart Score Response (Comments) Value History Slightly Suspicious 0 EKG Normal 0 Age 45-64 1 Risk Factors >3 or Hx ASHD 2 Troponin Normal limit 0 Total 3 I personally scribed for JESSICA SALAS MD ([email or web address]) on 08/20/24 at 08:58. Electronically submitted by Krystal Barlow ([email or web address]). I personally scribed for JESSICA SALAS MD ([email or web address]) on 08/20/24 at 09:31. Electronically submitted by Krystal Barlow [email or web address]). I personally scribed for JESSICA SALAS MD ([email or web address]) on 08/20/24 at 11:33. E lectronically submitted by Krystal Barlow ([email or web address]). I personally scribed for JESSICA SALAS MD ([email or web address]) on 08/20/24 at 11:35. Electronically submitted by Krystal Barlow ([email or web address]). I personally scribed for JESSICA SALAS MD ([email or web address]) on 08/20/24 at 11:37. Electronically submitted by Krystal Barlow ([email or web address]). JESSICA SALAS MD Aug 20, 2024 08:58
[2024-08-20] MEDS: SODIUM CHLORIDE 0.9% 1,000 ML IV ONE (09:15)
[2024-08-20] MEDS ORDERED: PIPERACILLIN-TAZOB 3.375GM 100 ML IV ONE (09:15)
--- NOTE | 2024-08-20 09:25 | DVH ---
CHEST RADIOGRAPH Indication: sob Technique: Single frontal view of the chest was obtained COMPARISON: XY CHEST PORTABLE on DOS: 06/23/24, XY CHEST PORTABLE on DOS: 06/20/24, XY CHEST PORTABLE on DOS: 06/18/24, XY CHEST XRAY 1 VIEW on DOS: 05/24/24, XY CHEST PORTABLE on DOS: 03/19/24 FINDINGS: Lines and Tubes: None Lungs: Left basilar subsegmental atelectasis. Pleura: No effusion. No pneumothorax. Cardiomediastinal contours: Unremarkable Bones: Chronic appearing right posterior 7th rib fracture. IMPRESSION: Left basilar subsegmental atelectasis.
[2024-08-20] MEDS: ALBUTEROL SULF 2.5 MG/0.5ML(0.5%) NEB SOLN NEB ONE (09:39)
[2024-08-20] MEDS: IPRATROPIUM BROM 0.5 MG/2.5ML INH SOL NEB ONE (09:39)
[2024-08-20 09:45] LABS: Urine Bacteria FEW /hpf (None Seen); Urine Blood Negative /uL (Negative); Urine Clarity Clear (Clear); Urine Color Light-Yellow (Yellow); Urine Hyaline Cast FEW /lpf (0 - 2); Urine Protein, UAD TRACE (Negative); Urine Specific Gravity 1.014 (1.001-1.035); Urine Squamous Epithelial Cell None Seen /hpf (<5); Urine Urobilinogen Normal (Negative); Urine WBC 2 /HPF (0-5)
[2024-08-20 09:50] LABS: Basophils # (auto) 0.1 10 ^3/uL (0-0.2); Basophils % (auto) 0.4 % (0.0-2.0); Chloride 105 mmol/L (98-107); Eosinophils # (auto) 0.3 10 ^3/uL (0-0.8); Eosinophils % (auto) 2.1 % (0.0-7.0); Hematocrit 43.4 % (36.0-46.0); Hemoglobin 14.1 g/dL (12.2-16.2); Lymphocytes # (auto) 0.8 10 ^3/uL (0.4-5.4); Lymphocytes % (auto) 6.4 % (10.0-50.0); Mean Corpuscular Hemoglobin 32.1 pg (28.0-32.0); Mean Corpuscular Hgb Conc. 32.5 g/dL (32.0-36.0); Mean Corpuscular Volume 98.9 fL (80.0-100.0); Monocytes # (auto) 0.6 10 ^3/uL (0-1.3); Monocytes % (auto) 4.6 % (0.0-12.0); Neutrophils # (auto) 11.3 10 ^3/uL (1.6-8.6); Neutrophils % (auto) 86.5 % (37.0-80.0); Platelet Count (auto) 206 10^3/uL (140-450); Potassium 3.7 mmol/L (3.5-5.1); Red Blood Cells 4.38 10^6/uL (4.0-5.20); Red Cell Distribution Width 13.6 % (11.8-14.3); Sodium 142 mmol/L (136-145)
[2024-08-20 09:51] LABS: Anion Gap 6 (5-15)
[2024-08-20 09:52] LABS: Carbon Dioxide 31 mmol/L (20-31)
[2024-08-20 09:57] LABS: BUN/Creatinine Ratio 29.2 (10.0-20.0)
[2024-08-20 10:06] LABS: Blood Urea Nitrogen 31 mg/dL (9-23); Glucose 113 mg/dL (74-106)
[2024-08-20] MEDS: MAGNESIUM SULFATE 1GM/100ML 100 ML IV ONE (10:06)
[2024-08-20] MEDS: methylPREDNISolone SOD SUCC 125 MG/2 ML VL IV ONE (10:11)
[2024-08-20] MEDS: ERTAPENEM SOD INJ 1 GM in SODIUM CHL 0.9% 50 ML IV ONE (10:36)
--- NOTE | 2024-08-20 11:25 | DVH ---
EXAM: CT HEAD WITHOUT CONTRAST HISTORY: altered COMPARISON: CT HEAD WITHOUT CONTRAST on DOS: 05/26/24, CT CHEST WITHOUT CONTRAST on DOS: 03/20/24 TECHNIQUE: Axial images of the head were obtained and reformatted in coronal and sagittal planes. All CT scans at this medical facility are performed using dose modulation techniques as appropriate t o a performed exam including the following: Automated exposure control was utilized; adjustment of th e MA and/or KV according to patient size; and use of iterative reconstruction technique. CT Dose: CTDI volume is 59 mGy. Dose-length product is 1168 mGy*cm FINDINGS: There is no evidence of acute intracranial hemorrhage, mass, mass effect midline shift. There is no h ydrocephalus or extra-axial fluid collection. Sorensen-white matter differentiation is maintained. There is a small retention cyst in the left maxillary sinus. The mastoid air cells are clear. The c alvarium is intact. IMPRESSION: 1. No acute intracranial process. HS:Y
[2024-08-20 11:41] LABS: Base Excess 3.4 mmol/L (-2.0-3.0)
[2024-08-20] MEDS: CLINDAMYCIN 600MG IV 50 ML IV ONE (11:58)
[2024-08-20 13:14] LABS: Amphetamine Screen, Urine Neg (NEGATIVE); Barbiturate Scree,Urine Neg (NEGATIVE); Benzodiazephine Screen, Urine Neg (NEGATIVE); Cannabinoid Screen, Urine Neg (NEGATIVE); Cocaine Screen, Urine Neg (NEGATIVE); Opiate Scree,Urine Pos (NEGATIVE); Phencyclidine Screen, Urine Neg (NEGATIVE)
--- NOTE | 2024-08-20 13:28 | ECG ---
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
[2024-08-20] MEDS ORDERED: ONDANSETRON HCL 4 MG/2 ML VIAL IV PRN (14:30)
[2024-08-20] MEDS ORDERED: ACETAMINOPHEN 325 MG TAB PO PRN (14:30)
--- NOTE | 2024-08-20 15:33 | DVHHP2 ---
History of Present Illness Reason for Visit: Altered mental status History of Present Illness Katie Schroeder is a 59-year-old female with past medical history of COPD, CHF, CVA with no deficits, gout, sleep apnea, arthritis, depression, anxiety, gastric sleeve, , and left shoulder dislocation who presents to the ED for altered level of consciousness x1 day. Patient's daughter reported that she found a bottle of Tylenol pills open near the patient. She also reports that her mom takes Zirconia every 4 hours continuously in conjunction with her home medications. She reported that she took her mom to [facility] was discharged yesterday brought her home and she was lethargic this morning. She is currently here for an evaluation. Daughter also reports that her mom has a right arm PICC was getting ertapenem for ESBL in the urine. Patient's daughter reports that her mom was extremely lethargic but upon examination the patient is alert and oriented x4 answers all questions appropriately and is cooperative. Patient states she does not remember when she passed out or became altered. Patient denies any chest pain, shortness of breath, abdominal pain, nausea, vomiting, diarrhea, fever, and chills. Cardiovascular: CHF Pulmonary: COPD, Other (Sleep apnea) [employer]: CVA Psych: Anxiety, Depression Rheumatologic: Gout Past Medical History Arthritis Past Surgical History: , Other (Gastric sleeve and left shoulder dislocation) Family History: None Smoke: 2 packs per day ALCOHOL: none Drugs: None Lives: with Family Domestic Violence: Neg Review of Systems Constitutional: Yes: Other (Altered mental status); No: Fever, Chills, Sweats, Weakness, Malaise Eyes: No: Pain, Vision change, Conjunctivae inflammation, Eyelid inflammation, Other, Redness ENT: No: Ear pain, Ear discharge, Nose pain, Nose discharge, Nose congestion, Mouth pain, Mouth swelling, Throat pain, Throat swelling, Other Respiratory: No: Cough, Dry, Shortness of breath, SOB with excertion, Wheezing, Hemoptysis, Pleuritic Pain, Sputum, Wheezing, Other Cardiovascular: No: Chest Pain, Palpitations, Orthopnea, Paroxysmal Noc. Dyspnea, Edema, Lt Headedness, Other Gastrointestinal: No: Nausea, Vomiting, Abdominal Pain, Diarrhea, Constipation, Melena, Hematochezia, Other Genitourinary: No Dysuria, No Frequency, No Incontinence, No Hematuria, No Retention, No Other Musculoskeletal: No: other, neck pain, shoulder pain, arm pain, back pain, hand pain, leg pain, foot pain Skin: No: Rash, Lesions, Jaundice, Bruising, Other Neurological: No: Weakness, Numbness, Incoordination, Change in speech, Confusion, Seizures, Other Allergies: Coded Allergies: Codeine (Unverified Allergy, Unknown, 06/21/23) Influenza Vaccines (Unverified Allergy, Unknown, 06/21/23) Pneumococcal Vaccines (Unverified Allergy, Unknown, 06/21/23) Medications Current Medications Medications Dose Ordered Sig/Sumanth Route Start Time Stop Time Status Last Admin Dose Admin Ertapenem 1 gm/ Sodium Chloride 50 ml @ 100 mls/hr DAILY IV 08/21/24 10:00 Clindamycin Phosphate 50 ml @ 50 mls/hr Q8HR IV 08/20/24 22:00 Ondansetron HCl 4 mg Q4HP PRN IV 08/20/24 14:30 Acetaminophen 650 mg Q6HP PRN PO 08/20/24 14:30 Exam Vital Signs Vital Signs Date Time Temp Pulse Resp B/P (MAP) Pulse Ox O2 Delivery O2 Flow Rate FiO2 08/20/24 09:42 20 95 Nasal Cannula* 5 40 08/20/24 08:49 83 08/20/24 08:46 97.2 114/65 (81) General Appearance: Alert, Oriented X3, Cooperative, No acute distress HEENT: Atraumatic, PERRLA, EOMI, Mucous membr. moist/pink Respiratory: Normal air movement Cardiovascular: Regular rate, Normal S1, Normal S2, No murmurs Abdominal: Normal bowel sounds, Soft, No hepatospenomegaly, No masses Extremities: No clubbing, No cyanosis, No edema, Normal pulses, No tenderness/swelling Skin: No rashes, No breakdown, No significant lesion Neuro: Normal speech, Strength at 5/5 X4 ext, Normal tone, Sensation intact Psych/Mental Status: Mental status NL, Mood NL Labs/Xrays Labs Test 08/20/24 11:36 08/20/24 09:29 08/20/24 09:16 Range/Units Blood Gas Specimen Type Arterial Blood Gas Sample Site Right radial Blood Gas Patient Temperature 37.0 Arterial Blood Date Drawn [id number] Arterial Blood pH 7.363 7.350-7.450 Arterial Blood Partial Pressure CO2 54.0 H 32.0-45.0 mmHg Arterial Blood Partial Pressure O2 55.5 L 83.0-108.0 mmHg Arterial Blood HCO3 30.0 H 21.0-28.0 mmol/L Arterial Blood Oxygen Saturation 90.8 L 94.0-98.0 % Arterial Blood Base Excess 3.4 H -2.0-3.0 mmol/L Arterial Blood Oxyhemoglobin 89.0 L 94.0-98.0 % Arterial Blood Carboxyhemoglobin 1.8 H 0.5-1.5 % Arterial Blood Methemoglobin 0.2 0.0-1.5 % Chandu Test Yes Blood Gas Total Hemoglobin 13.70 12.0-16.0 g/dL Blood Gas Liter Flow 4.00 Blood Gas Modality Nasal cannula FiO2 % 36.0 White Blood Count 13.0 H 4.4-10.8 10^3/uL Red Blood Count 4.38 4.0-5.20 10^6/uL Hemoglobin 14.1 12.2-16.2 g/dL Hematocrit 43.4 36.0-46.0 % Mean Corpuscular Volume 98.9 80.0-100.0 fL Mean Corpuscular Hemoglobin 32.1 H 28.0-32.0 pg Mean Corpuscular Hemoglobin Concent 32.5 32.0-36.0 g/dL Red Cell Distribution Width 13.6 11.8-14.3 % Platelet Count 206 140-450 10^3/uL Mean Platelet Volume 9.3 6.9-10.8 fL Neutrophils (%) (Auto) 86.5 H 37.0-80.0 % Lymphocytes (%) (Auto) 6.4 L 10.0-50.0 % Monocytes (%) (Auto) 4.6 0.0-12.0 % Eosinophils (%) (Auto) 2.1 0.0-7.0 % Basophils (%) (Auto) 0.4 0.0-2.0 % Neutrophils # (Auto) 11.3 H 1.6-8.6 10 ^3/uL Lymphocytes # (Auto) 0.8 0.4-5.4 10 ^3/uL Monocytes # (Auto) 0.6 0-1.3 10 ^3/uL Eosinophils # (Auto) 0.3 0-0.8 10 ^3/uL Basophils # (Auto) 0.1 0-0.2 10 ^3/uL Nucleated Red Blood Cells 0.0 % Sodium Level 142 136-145 mmol/L Potassium Level 3.7 3.5-5.1 mmol/L Chloride Level 105 98-107 mmol/L Carbon Dioxide Level 31 20-31 mmol/L Anion Gap 6 5-15 Blood Urea Nitrogen 31 H 9-23 mg/dL Creatinine 1.06 H 0.550-1.02 mg/dL Glomerular Filtration Rate Calc 60 >90 mL/min BUN/Creatinine Ratio 29.2 H 10.0-20.0 Serum Glucose 113 H 74-106 mg/dL Lactic Acid Level 1.1 0.4-2.0 mmol/L Calcium Level 10.0 8.7-10.4 mg/dL Troponin I High Sensitivity 4 </=34 ng/L B-Type Natriuretic Peptide 21.25 0-100 pg/mL Urine Color Light-yellow Yellow Urine Clarity Clear Clear Urine pH 6.0 5.0-9.0 Urine Specific [place] 1.014 1.001-1.035 Urine Protein Trace H Negative Urine Ketones Negative Negative Urine Blood Negative Negative /uL Urine Nitrite Negative Negative Urine Bilirubin Negative Negative Urine Urobilinogen Normal Negative mg/dL Urine Leukocyte Esterase Negative Negative /uL Urine RBC 1 0 - 4 /hpf Urine Microscopic WBC 2 0-5 /HPF Urine Squamous Epithelial Cells None seen <5 /hpf Urine Bacteria Few H None Seen /hpf Urine Hyaline Casts Few 0 - 2 /lpf Urine Glucose Normal Normal mg/dL Urine Opiates Screen Pos NEGATIVE Urine Fentanyl Screen Neg NEGATIVE Urine Barbiturates Screen Neg NEGATIVE Urine Phencyclidine Screen Neg NEGATIVE Urine Amphetamines Screen Neg NEGATIVE Urine Benzodiazepines Screen Neg NEGATIVE Urine Cocaine Screen Neg NEGATIVE Urine Cannabinoids Screen Neg NEGATIVE EXAM: CT HEAD WITHOUT CONTRAST HISTORY: altered COMPARISON: CT HEAD WITHOUT CONTRAST on DOS: 05/26/24, CT CHEST WITHOUT CONTRAST on DOS: 03/20/24 TECHNIQUE: Axial images of the head were obtained and reformatted in coronal and sagittal planes. All CT scans at this medical facility are performed using dose modulation techniques as appropriate to a performed exam including the following: Automated exposure control was utilized; adjustment of the MA and/or KV according to patient size; and use of iterative reconstruction technique. CT Dose: CTDI volume is 59 mGy. Dose-length product is 1168 mGy*cm FINDINGS: There is no evidence of acute intracranial hemorrhage, mass, mass effect midline shift. There is no hydrocephalus or extra-axial fluid collection. Sorensen-white matter differentiation is maintained. There is a small retention cyst in the left maxillary sinus. The mastoid air cells are clear. The calvarium is intact. IMPRESSION: 1. No acute intracranial process. CHEST RADIOGRAPH Indication: sob Technique: Single frontal view of the chest was obtained COMPARISON: XY CHEST PORTABLE on DOS: 06/23/24, XY CHEST PORTABLE on DOS: 08/20/23, XY CHEST PORTABLE on DOS: 06/18/24, XY CHEST XRAY 1 VIEW on DOS: 05/24/24, XY CHEST PORTABLE on DOS: 03/19/24 FINDINGS: Lines and Tubes: None Lungs: Left basilar subsegmental atelectasis. Pleura: No effusion. No pneumothorax. Cardiomediastinal contours: Unremarkable Bones: Chronic appearing right posterior 7th rib fracture. IMPRESSION: Left basilar subsegmental atelectasis. Assessment/Plan Assessment/Plan Assessment/Plan: Acute encephalopathy due to drug overdose Leukocytosis likely due to UTI CAREN History of Left hip wound from spider bite Labs IV antibiotics-clindamycin + ertapenem Mag sulfate given in ED Respiratory treatments UA Drug screen ABG CT head negative Lactic noted Blood cultures Chest x-ray BNP Trop negative Acevedo catheter EKG Narcan given ED Positive for opiates Wound culture Wound consult Oxygen dependence 3 L nasal cannula at home History of COPD Respiratory treatments History of CVA with no deficits Monitor History of gout Continue home medications History of sleep apnea Continue use of CPAP at night History of arthritis Continue home medications Chronic depression Chronic anxiety Continue home medication FEN/PPX Diet HL PUD ppx -Protonix DVT ppx - not indicated patient ambulating Discussed plan of care with nurse Admit to [facility] Home medications reconciled Plan discussed with: Patient, Daughter My Orders Orders - NATHALY BENAVIDEZ Procedure Category Date Status Time Acetaminophen LAB 08/20/24 Logged 14:24 * Wound Consult CONS 08/20/24 Transmitted Wound Culture W/ Gs CHRISTINE 08/20/24 Logged 14:24 Clindamycin 600mg Iv PHA 08/20/24 In Process (Cleocin Iv) 22:00 Admit ADMIT 08/20/24 Transmitted 14:24 Allergies MARIC 08/20/24 In Process 14:24 Code Status CODE 08/20/24 Transmitted 14:24 Ondansetron Hcl PHA 08/20/24 In Process (Zofran) 14:30 Complete Blood Count LAB 08/21/24 Verified 04:00 Comprehensive LAB 08/21/24 Verified Metabolic Panel 04:00 Cardiac DIET 08/20/24 Transmitted Diet-2gna,Lofat,Lochol Dinner Acetaminophen Tablet PHA 08/20/24 In Process (Tylenol Tablet) 14:30 Date of Service: Aug 20, 2024 Billing Provider: NATHALY BENAVIDEZ Common Visit Codes: [id number] INP/OBS CARE (HIGH) NATHALY BENAVIDEZ Aug 20, 2024 15:33
[2024-08-20] MEDS ORDERED: ATOR10TA52 (15:37)
[2024-08-20] MEDS ORDERED: FENO48TA13 (15:37)
[2024-08-20] MEDS ORDERED: GABAPENTIN 400 MG CAP PO SCH (15:43)
[2024-08-20] MEDS ORDERED: ALBUTEROL SULF 2.5 MG/0.5ML(0.5%) NEB SOLN NEB PRN (15:45)
[2024-08-20] MEDS ORDERED: IPRATROPIUM BROM 0.5 MG/2.5ML INH SOL NEB PRN (15:45)
[2024-08-20 15:51] VITALS: BP 103/53; PULSE 92; RESP 18; TEMP 98.6; O2SAT 90
[2024-08-20] MEDS: PREGABALIN CAPSULE 75 MG CAP PO SCH (16:15)
[2024-08-20] MEDS: HYDROcodone-ACET 5/325MG TAB PO ONE (17:05)
[2024-08-20] MEDS: SPIRONOLACTONE 25 MG TAB PO SCH (18:07)
[2024-08-20] MEDS: FUROSEMIDE 40 MG TAB PO SCH (18:07)
[2024-08-20] MEDS: ALBUTEROL SULF 2.5 MG/0.5ML(0.5%) NEB SOLN NEB SCH (18:24)
[2024-08-20] MEDS: IPRATROPIUM BROM 0.5 MG/2.5ML INH SOL NEB SCH (18:24)
[2024-08-20 18:25] VITALS: PULSE 94; RESP 20; O2SAT 18; O2SAT 88
[2024-08-20 18:31] VITALS: PULSE 87; RESP 18; O2SAT 93
[2024-08-20] MEDS: BUDESONIDE (INHALATION) 0.5 MG/2 ML NEB NEB SCH (21:46)
[2024-08-20] MEDS: CARVEDILOL 3.125 MG TAB PO SCH (22:00)
[2024-08-20] MEDS ORDERED: PREGABALIN CAPSULE 75 MG CAP PO SCH (22:00)
[2024-08-20 22:22] VITALS: PULSE 78; RESP 17; O2SAT 93
[2024-08-20 22:23] VITALS: BP 89/52; PULSE 78; RESP 17; TEMP 98; O2SAT 91
[2024-08-20] MEDS: CLINDAMYCIN 600MG IV 50 ML IV SCH (23:15)
[2024-08-20] MEDS: GABAPENTIN 400 MG CAP PO SCH (23:20)
[2024-08-20] MEDS: QUEtiapine FUMARATE 100 MG TAB PO SCH (23:21)
[2024-08-21] VITALS (15 sets, daily range): BP systolic 88–115; BP diastolic 51–62; PULSE 57–81; RESP 14–20; TEMP 97.6–98.8; O2SAT 91–99
[2024-08-21] MEDS: ALBUMIN 5% 250 ML IV ONE (00:02)
[2024-08-21 05:34] LABS: Basophils # (auto) 0 10 ^3/uL (0-0.2); Basophils % (auto) 0.3 % (0.0-2.0); Eosinophils # (auto) 0.1 10 ^3/uL (0-0.8); Eosinophils % (auto) 0.9 % (0.0-7.0); Hematocrit 35.1 % (36.0-46.0); Hemoglobin 11.9 g/dL (12.2-16.2); Lymphocytes # (auto) 1.6 10 ^3/uL (0.4-5.4); Mean Corpuscular Hemoglobin 32.8 pg (28.0-32.0); Mean Corpuscular Volume 96.6 fL (80.0-100.0); Monocytes # (auto) 0.7 10 ^3/uL (0-1.3); Monocytes % (auto) 9.1 % (0.0-12.0); Neutrophils # (auto) 5.5 10 ^3/uL (1.6-8.6); Neutrophils % (auto) 69.7 % (37.0-80.0); Platelet Count (auto) 188 10^3/uL (140-450); Red Blood Cells 3.63 10^6/uL (4.0-5.20); Red Cell Distribution Width 13.3 % (11.8-14.3); White Blood Cell 7.8 10^3/uL (4.4-10.8)
[2024-08-21 05:51] LABS: Albumin 3.8 g/dL (3.2-4.8); Alkaline Phosphatase 58 U/L (46-116); Anion Gap 7 (5-15); Aspartate Aminotransferase 15 U/L (13-40); BUN/Creatinine Ratio 37.9 (10.0-20.0); Chloride 104 mmol/L (98-107); Glucose 83 mg/dL (74-106); Sodium 143 mmol/L (136-145)
[2024-08-21 05:54] LABS: Alanine Aminotransferase < 9 U/L (7-40); Bilirubin, Total 0.3 mg/dL (0.2-1.0); Blood Urea Nitrogen 25 mg/dL (9-23); Calcium 10.4 mg/dL (8.7-10.4); Carbon Dioxide 32 mmol/L (20-31); Potassium 3.1 mmol/L (3.5-5.1)
[2024-08-21] MEDS ORDERED: POTASSIUM EFFERVESENT TAB 25 MEQ PO ONE ×2 (09:45→10:15)
[2024-08-21] MEDS: CHOLECALCIFEROL (VITD3) 1,000UNIT=25mCg TAB PO SCH (09:46)
[2024-08-21] MEDS: MAGNESIUM OXIDE 400 MG TAB PO SCH (09:48)
[2024-08-21] MEDS: DULoxetine HCL 30 MG CAP PO SCH (09:49)
[2024-08-21] MEDS: FOLIC ACID 1 MG TAB PO SCH (09:49)
[2024-08-21] MEDS: PANTOPRAZOLE 40 MG/10 ML VIAL INJ IV SCH (09:52)
[2024-08-21] MEDS: ERTAPENEM SOD INJ 1 GM in SODIUM CHL 0.9% 50 ML IV SCH (09:53)
[2024-08-21] MEDS: POTASSIUM CHL 20 Meq TABLET PO ONE (11:30)
[2024-08-21] MEDS: HYDROcodone-ACET 5/325MG TAB PO PRN (12:30)
[2024-08-21] MEDS: MELATONIN 5 MG TAB PO ONE (12:34)
[2024-08-21 13:17] LABS: COVID19 ANTIGEN SOFIA FIA NEGATIVE (NEGATIVE); Rapid Influenza A Negative (Negative); Rapid Influenza B Negative (Negative)
[2024-08-21] MEDS: DOXYCYCLINE 100MG/100ML 100 ML IV ONE (16:46)
--- NOTE | 2024-08-21 16:49 | DVHPNRES ---
Progress Note Date Seen: Aug 21, 2024 Resident Creating Document: HANNAH MEJIAS RESIDENT Medical Necessity Reason Pt with a Central, PICC or Fol: No Subjective Review of Systems Katie Schroeder Gwendolyn is a 59-year-old female with past medical history of COPD, CHF, CVA with no deficits, gout, sleep apnea, arthritis, depression, anxiety, gastric sleeve, , and left shoulder dislocation who presents to the ED for altered level of consciousness x1 day. Patient's daughter reported that she found a bottle of Tylenol pills open near the patient. She also reports that her mom takes Cherokee every 4 hours continuously in conjunction with her home medications. Recently she was discharged from [facility] with a diagnosis of ESBL UTI and has a right arm PICC . Patient's daughter reports that her mom was extremely lethargic but upon examination the patient is alert and oriented x4 answers all questions appropriately and is cooperative. Patient was seen and examined on the bedside. She is alert oriented x3. Complains of cough, shortness of breath and generalized body pain. No other active complaints Constitutional: No: Fever, Chills, Sweats, Weakness, Malaise, Other Eyes: No: Pain, Vision change, Conjunctivae inflammation, Eyelid inflammation, Other, Redness ENT: No: Ear pain, Ear discharge, Nose pain, Nose discharge, Nose congestion, Mouth pain, Mouth swelling, Throat pain, Throat swelling, Other Respiratory: Shortness of breath, improving , Cough, sputum No Dry,Wheezing, Hemoptysis, Pleuritic Pain, Wheezing, Other Cardiovascular: No: Chest Pain, Palpitations, Orthopnea, Paroxysmal Noc. Dyspnea, Edema, Lt Headedness, Other Gastrointestinal: No: Nausea, Vomiting, Abdominal Pain, Diarrhea, Constipation, Melena, Hematochezia, Other Musculoskeletal: No: other, neck pain, shoulder pain, arm pain, back pain, hand pain, leg pain, foot pain Neurological:; No: Weakness, Numbness, Incoordination, Change in speech, Confusion, Seizures Objective vital signs Vital Sign Date Time Temp Pulse Resp B/P (MAP) Pulse Ox O2 Delivery O2 Flow Rate FiO2 08/21/24 13:14 65 18 98 08/21/24 13:08 Nasal Cannula 4.0 08/21/24 13:08 36 08/21/24 11:37 105/58 (74) 08/21/24 11:33 98.8 98.8 Total Intake and Output 08/20/24 08/20/24 08/21/24 15:00 23:00 07:00 Intake Total 200 ml 650 ml Output Total 2850 ml 950 ml Balance 200 ml -2850 ml -300 ml medications Current Medications Medications Dose Ordered Sig/Sumanth Route Start Time Stop Time Status Last Admin Dose Admin Ertapenem 1 gm/ Sodium Chloride 50 ml @ 100 mls/hr DAILY IV 08/21/24 10:00 08/21/24 09:53 100 MLS/HR Ondansetron HCl 4 mg Q4HP PRN IV 08/20/24 14:30 Acetaminophen 650 mg Q6HP PRN PO 08/20/24 14:30 Pantoprazole Sodium 40 mg DAILY IV 08/21/24 10:00 08/21/24 09:52 40 MG Albuterol 2.5 mg Q6HWA [facility] 08/20/24 18:00 08/21/24 13:08 2.5 MG Albuterol 2.5 mg Q2HPRN PRN NEB 08/20/24 15:45 Ipratropium [place] 0.5 mg Q6HWA NEB 08/20/24 18:00 08/21/24 13:08 0.5 MG Ipratropium [place] 0.5 mg Q2HPRN PRN NEB 08/20/24 15:45 Budesonide 0.5 mg BID NEB 08/20/24 22:00 08/21/24 08:10 0.5 MG Carvedilol 6.25 mg BID PO 08/20/24 22:00 08/21/24 09:51 6.25 MG Duloxetine HCl 60 mg DAILY PO 08/21/24 10:00 08/21/24 09:49 60 MG Furosemide 40 mg BIDD PO 08/20/24 18:00 08/20/24 18:07 40 MG Spironolactone 25 mg BIDD PO 08/20/24 18:00 08/20/24 18:07 25 MG Cholecalciferol 5,000 unit DAILY PO 08/21/24 10:00 08/21/24 09:46 5,000 UNIT Folic Acid 1 mg DAILY PO 08/21/24 10:00 08/21/24 09:49 1 MG Magnesium Oxide 400 mg DAILY PO 08/21/24 10:00 08/21/24 09:48 400 MG Quetiapine Fumarate 400 mg HS PO 08/20/24 22:00 08/20/24 23:21 400 MG Gabapentin 400 mg TID PO 08/20/24 22:00 08/21/24 14:48 400 MG Pregabalin 150 mg TID@0000,0800,1600 PO 08/20/24 16:00 08/21/24 09:46 150 MG Acetaminophen/ Hydrocodone Bitart 1 tab Q4HPRN PRN PO 08/21/24 10:15 08/21/24 12:30 1 TAB Doxycycline Monohydrate 100 mg Q12HR PO 08/21/24 22:00 Methylprednisolone Sodium Succinate 40 mg DAILY IV 08/22/24 10:00 Examination Physical examination: General Appearance: Alert, Oriented X3, Cooperative, No acute distress HEENT: Atraumatic, PERRLA, EOMI, Mucous membrane moist/pink Respiratory: Bilateral crackles. Cardiovascular: Regular rate, Normal S1, Normal S2, No murmurs, no chest wall tenderness Abdominal: Normal bowel sounds, Soft, No tenderness, No hepatospenomegaly, No masses Extremities: No clubbing, No cyanosis, No edema, Normal pulses, No tenderness/swelling Skin: Small circular infected wound in the Lt buttock ,no rashes, no breakdown, no significant lesion Neuro: Normal gait, Normal speech, Strength at 5/5 X4 ext, Normal tone, Sensation intact, grossly intact cranial nerves Psych/Mental Status: Mental status NL, Mood NL laboratory and microbiology Laboratory Tests 08/21/24 04:45 Test 08/21/24 04:45 Range/Units Serum Glucose 83 74-106 mg/dL Microbiology Date/Time Source Procedure Growth Status 08/20/24 23:15 Nose MRSA Screen - Final Complete 08/20/24 09:29 Blood Blood Culture - Preliminary NO GROWTH AFTER 24 HOURS OF INCUBATION. Resulted Labs and/or images reviewed: Labs reviewed by me, Image(s) reviewed by me Problem List/Assessment/Plan Problem List/Assessment/Plan Assessment and Plan: # Acute metabolic versus toxic encephalopathy - CT head without contrast revealed no acute intracranial abnormality - UDS is positive for opioid and acetaminophen level < 2 - Ammonia is 109 and TSH is 0.39 - Ordered Liver ultrasound to rule out cirrhosis, coagulation studies and hepatitis panel - Lactulose 15 ml b.i.d. # Possible subclinical hyperthyroidism # Possible Euthyroid sick syndome - TSH is low - Ordered FT3 and FT4. # Acute complicated UTI due to ESBL - Discharged from [facility] 1 day ago with a diagnosis ESBL UTI and has a PICC line - IV ertapenem 1 g daily # Possible community-acquired Gram-positive/gram negative pneumonia # Acute on chronic respiratory failure likely due to above # Possible COPD exaccerbation - Chest xray demonstarted left basilar subsegmental atelectasis. - Duoneb with albuterol and ipratropium q.6 hours - IV methylprednisolone 40 mg daily - IV ertapenem 1 g daily doxycycline p.o. 100 mg b.i.d. - Covid/flu/MRSA negative - Preliminary blood culture revealed no growth in 24 hours of incubation. # History of ESBL in left buttock wound - Ordered wound C/s - wound care regularly. # Hypokalemia - Replenished # History of chronic diastolic heart failure # Hypertensive heart disease - Echo 0 03/16 revealed ejection fraction 50% to 5% with grade 1 diastolic dysfunction and RVSP 37 mm of Hg - BNP is normal - CXR did not revealed any sign of pulmonary vascular congestion. - Continue home meds furosemide 40 mg po b.i.d. and spironolactone 25 mg po b.i.d. - Continue Carvedilol 6.25 mg b.i.d. # chronic back pain - Pregabalin 150 mg PO TID - Gabapentin 400 mg PO TID - Cherokee 5 /325 mg q.4 p.r.n. Diet : Cardiac diet PUD prophylaxis: Pepcid 20 mg p.o. b.i.d. DVT prophylaxis: Lovenox 40 mg sc daily Disposition: Medsurge Plan discussed with Dr. Varela Plan discussed with: Patient, Other My Orders My Orders Orders - HANNAH MEJIAS Procedure Category Date Status Time Mrsa Screen CHRISTINE 08/21/24 Logged 12:21 Hydrocodone-Acet PHA 08/21/24 In Process 5/325mg Tab (Cherokee 10:15 Cleanse Wound With MARCI 08/21/24 In Process Wound Clean 11:10 * Dietary Consult CONS 08/21/24 Transmitted 13:39 Doxycycline PHA 08/21/24 In Process 100mg/100ml 15:00 Doxycycline Tablet PHA 08/21/24 In Process (Vibramycin Tablet) 22:00 Methylprednisolone PHA 08/22/24 In Process Sod Succ (Solu Medrol 10:00 Free T3 LAB 08/21/24 In Process 14:50 Free T4 (Free LAB 08/21/24 In Process Thyroxine) 14:50 Date of Service: Aug 21, 2024 Billing Provider: GLORIA ACHARYA MD Common Visit Codes: [id number] INP/OBS CARE(HIGH) HANNAH MEJIAS RESIDENT Aug 21, 2024 16:49 GLORIA ACHARYA MD Aug 27, 2024 23:46
[2024-08-21] MEDS: methylPREDNISolone SOD SUCC 40 MG/ML VL IV ONE (16:51)
[2024-08-21 17:24] LABS: Free T3 1.67 pg/mL (2.3-4.2); Free T4 (Free Thyroxine) 0.58 ng/dL (0.89-1.76)
[2024-08-21] MEDS: LACTULOSE 20Gm/30ML SOLN PO ONE (17:33)
[2024-08-21] MEDS: ENOXAPARIN SOD 40 MG/0.4 ML SYRINGE SC SCH (18:18)
[2024-08-21 18:40] LABS: INR 0.92 (0.9-1.15); Partial Thromboplastin Time 27.4 SEC (24.5-34.5); Prothrombin Time 9.8 sec (9.3-11.8)
--- NOTE | 2024-08-21 18:48 | DVH ---
EXAM: US LIVER CLINICAL HISTORY: Hyperammonemia, rule out cirrhosis TECHNIQUE: Grayscale and limited color flow doppler ultrasound of the right upper quadrant is perfor med. COMPARISON: None Findings: Liver measures 23.3 cm in length with increased echotexture and nodular contour. No evidence of focal hepatic lesions or intra- or extrahepatic ductal dilatation. Common bile duct measures 1.5 cm in erick meter. Normal hepatopedal flow noted within the portal vein. No perihepatic free fluid is noted. Cholecystectomy. Negative sonographic Alvarez's sign. Pancreas is echogenic. Right kidney measures 10.7 cm with normal contours, echotexture and cortical thickness. No evidence o f hydronephrosis, calculi, cystic or solid renal lesions. Partially visualized inferior vena cava unremarkable. Impression: 1. No evidence of acute right upper quadrant abnormalities. 2. Hepatomegaly with hepatic steatosis and nodular contour. Correlate for hepatic cirrhosis. Consider further evaluation with contrast enhanced MRI as clinically indicated. 3. Fatty pancreas. 4. Cholecystectomy with dilated common bile duct.
[2024-08-21] MEDS: FAMOTIDINE 20 MG TAB PO SCH (21:25)
[2024-08-21] MEDS: DOXYCYCLINE 100 MG TAB/CAP PO SCH (21:26)
[2024-08-21] MEDS: LACTULOSE 20Gm/30ML SOLN PO SCH (21:33)
[2024-08-22] VITALS (12 sets, daily range): BP systolic 100–115; BP diastolic 58–68; PULSE 54–82; RESP 18–20; TEMP 97.6–98.6; O2SAT 70–99
[2024-08-22 05:18] LABS: Basophils # (auto) 0 10 ^3/uL (0-0.2); Basophils % (auto) 0.4 % (0.0-2.0); Eosinophils # (auto) 0 10 ^3/uL (0-0.8); Eosinophils % (auto) 0.2 % (0.0-7.0); Hematocrit 35.9 % (36.0-46.0); Hemoglobin 11.9 g/dL (12.2-16.2); Lymphocytes # (auto) 1.8 10 ^3/uL (0.4-5.4); Lymphocytes % (auto) 24.5 % (10.0-50.0); Mean Corpuscular Hemoglobin 32.4 pg (28.0-32.0); Mean Corpuscular Hgb Conc. 33.2 g/dL (32.0-36.0); Mean Corpuscular Volume 97.5 fL (80.0-100.0); Monocytes # (auto) 0.5 10 ^3/uL (0-1.3); Monocytes % (auto) 6.4 % (0.0-12.0); Neutrophils # (auto) 5.1 10 ^3/uL (1.6-8.6); Neutrophils % (auto) 68.5 % (37.0-80.0); Nucleated Red Blood Cells % 0.1 %; Platelet Count (auto) 204 10^3/uL (140-450); Red Blood Cells 3.68 10^6/uL (4.0-5.20); Red Cell Distribution Width 13.4 % (11.8-14.3); White Blood Cell 7.4 10^3/uL (4.4-10.8)
[2024-08-22 05:35] LABS: Alkaline Phosphatase 61 U/L (46-116); Anion Gap 7 (5-15); Aspartate Aminotransferase 15 U/L (13-40); BUN/Creatinine Ratio 42.9 (10.0-20.0); Carbon Dioxide 30 mmol/L (20-31); Chloride 106 mmol/L (98-107); Glucose 80 mg/dL (74-106); Potassium 3.9 mmol/L (3.5-5.1); Sodium 143 mmol/L (136-145)
[2024-08-22 05:36] LABS: Albumin 3.7 g/dL (3.2-4.8); Total Protein 5.8 g/dL (5.7-8.2)
[2024-08-22 05:38] LABS: Alanine Aminotransferase < 9 U/L (7-40); Bilirubin, Total 0.2 mg/dL (0.2-1.0); Blood Urea Nitrogen 24 mg/dL (9-23); Calcium 10.5 mg/dL (8.7-10.4)
[2024-08-22 09:08] LABS: Hepatitis B Core Total AB Negative (Negative)
[2024-08-22 11:24] LABS: Hepatitis A Total Antibody Negative (Negative); Hepatitis B Surface Antibody Negative (Negative); Hepatitis B Surface Antigen Negative (Negative); Hepatitis C Antibody Negative (Negative)
[2024-08-22] MEDS ORDERED: DOXY1CAP57 PO (11:36)
[2024-08-22] MEDS ORDERED: PRED20TA2 PO (11:36)
[2024-08-22] MEDS ORDERED: LACT10SO3 PO (11:40)
[2024-08-22] MEDS: methylPREDNISolone SOD SUCC 40 MG/ML VL IV SCH (12:01)
--- NOTE | 2024-08-22 14:57 | DVHDSRES ---
Discharge Summary Date of Admission Resident Creating Document: HANNAH MEJIAS RESIDENT Aug 20, 2024 at 14:24 Date of Discharge: Aug 22, 2024 Admitting Diagnosis Acute metabolic/toxic encephalopathy Wounds: Small circular wound on the left buttocks, and erythema in the sacral region Labs/Diagnostic Data: Laboratory Results Test 08/22/24 04:41 08/21/24 17:54 08/21/24 14:39 08/21/24 11:48 White Blood Count 7.4 10^3/uL (4.4-10.8) Red Blood Count 3.68 10^6/uL (4.0-5.20) Hemoglobin 11.9 g/dL (12.2-16.2) Hematocrit 35.9 % (36.0-46.0) Mean Corpuscular Volume 97.5 fL (80.0-100.0) Mean Corpuscular Hemoglobin 32.4 pg (28.0-32.0) Mean Corpuscular Hemoglobin Concent 33.2 g/dL (32.0-36.0) Red Cell Distribution Width 13.4 % (11.8-14.3) Platelet Count 204 10^3/uL (140-450) Mean Platelet Volume 9.3 fL (6.9-10.8) Neutrophils (%) (Auto) 68.5 % (37.0-80.0) Lymphocytes (%) (Auto) 24.5 % (10.0-50.0) Monocytes (%) (Auto) 6.4 % (0.0-12.0) Eosinophils (%) (Auto) 0.2 % (0.0-7.0) Basophils (%) (Auto) 0.4 % (0.0-2.0) Neutrophils # (Auto) 5.1 10 ^3/uL (1.6-8.6) Lymphocytes # (Auto) 1.8 10 ^3/uL (0.4-5.4) Monocytes # (Auto) 0.5 10 ^3/uL (0-1.3) Eosinophils # (Auto) 0 10 ^3/uL (0-0.8) Basophils # (Auto) 0 10 ^3/uL (0-0.2) Nucleated Red Blood Cells 0.1 % Sodium Level 143 mmol/L (136-145) Potassium Level 3.9 mmol/L (3.5-5.1) Chloride Level 106 mmol/L (98-107) Carbon Dioxide Level 30 mmol/L (20-31) Anion Gap 7 (5-15) Blood Urea Nitrogen 24 mg/dL (9-23) Creatinine 0.56 mg/dL (0.550-1.02) Glomerular Filtration Rate Calc 104 mL/min (>90) BUN/Creatinine Ratio 42.9 (10.0-20.0) Serum Glucose 80 mg/dL (74-106) Calcium Level 10.5 mg/dL (8.7-10.4) Total Bilirubin 0.2 mg/dL (0.2-1.0) Aspartate Amino Transferase (AST) 15 U/L (13-40) Alanine Aminotransferase (ALT) < 9 U/L (7-40) Alkaline Phosphatase 61 U/L (46-116) Ammonia 48 umol/L (11-32) Total Protein 5.8 g/dL (5.7-8.2) Albumin 3.7 g/dL (3.2-4.8) Prothrombin Time 9.8 sec (9.3-11.8) Prothrombin Time INR 0.92 (0.9-1.15) Activated Partial Thromboplast Time 27.4 SEC (24.5-34.5) Hepatitis A Antibody Total Negative (Negative) Hepatitis B Surface Antigen Negative (Negative) Hepatitis B Surface Antibody Negative (Negative) Hepatitis B Core Total Antibody Negative (Negative) Hepatitis C Antibody Negative (Negative) Free Thyroxine (T4) Calculated 0.58 ng/dL (0.89-1.76) Free Triiodothyronine (T3) pg/mL 1.67 pg/mL (2.3-4.2) Influenza Type A Antigen Negative (Negative) Influenza Type B Antigen Negative (Negative) SARS-CoV-2 Antigen (Rapid) Negative (NEGATIVE) Test 08/21/24 04:45 08/20/24 15:27 08/20/24 11:36 08/20/24 09:29 Magnesium Level 2.6 mg/dL (1.6-2.6) Thyroid Stimulating Hormone (TSH) 0.39 uIU/mL (0.55-4.78) Acetaminophen Level < 2.0 UG/ML (10.0-20.0) Blood Gas Specimen Type Arterial Blood Gas Sample Site Right radial Blood Gas Patient Temperature 37.0 Arterial Blood Date Drawn [id number] Arterial Blood pH 7.363 (7.350-7.450) Arterial Blood Partial Pressure CO2 54.0 mmHg (32.0-45.0) Arterial Blood Partial Pressure O2 55.5 mmHg (83.0-108.0) Arterial Blood HCO3 30.0 mmol/L (21.0-28.0) Arterial Blood Oxygen Saturation 90.8 % (94.0-98.0) Arterial Blood Base Excess 3.4 mmol/L (-2.0-3.0) Arterial Blood Oxyhemoglobin 89.0 % (94.0-98.0) Arterial Blood Carboxyhemoglobin 1.8 % (0.5-1.5) Arterial Blood Methemoglobin 0.2 % (0.0-1.5) Chandu Test Yes Blood Gas Total Hemoglobin 13.70 g/dL (12.0-16.0) Blood Gas Liter Flow 4.00 Blood Gas Modality Nasal cannula FiO2 % 36.0 Lactic Acid Level 1.1 mmol/L (0.4-2.0) Troponin I High Sensitivity 4 ng/L (</=34) B-Type Natriuretic Peptide 21.25 pg/mL (0-100) Test 08/20/24 09:16 Urine Color Light-yellow (Yellow) Urine Clarity Clear (Clear) Urine pH 6.0 (5.0-9.0) Urine Specific [place] 1.014 (1.001-1.035) Urine Protein Trace (Negative) Urine Ketones Negative (Negative) Urine Blood Negative /uL (Negative) Urine Nitrite Negative (Negative) Urine Bilirubin Negative (Negative) Urine Urobilinogen Normal mg/dL (Negative) Urine Leukocyte Esterase Negative /uL (Negative) Urine RBC 1 /hpf (0 - 4) Urine Microscopic WBC 2 /HPF (0-5) Urine Squamous Epithelial Cells None seen /hpf (<5) Urine Bacteria Few /hpf (None Seen) Urine Hyaline Casts Few /lpf (0 - 2) Urine Glucose Normal mg/dL (Normal) Urine Opiates Screen Pos (NEGATIVE) Urine Fentanyl Screen Neg (NEGATIVE) Urine Barbiturates Screen Neg (NEGATIVE) Urine Phencyclidine Screen Neg (NEGATIVE) Urine Amphetamines Screen Neg (NEGATIVE) Urine Benzodiazepines Screen Neg (NEGATIVE) Urine Cocaine Screen Neg (NEGATIVE) Urine Cannabinoids Screen Neg (NEGATIVE) Other Laboratory Tests 08/22/24 04:41 Brief Hx & Hospital Course: Katie Schroeder is a 59-year-old female with past medical history of COPD, CHF, CVA with no deficits, gout, sleep apnea, arthritis, depression, anxiety, gastric sleeve, , and left shoulder dislocation who presents to the ED for altered level of consciousness x1 day. Patient's daughter reported that she found a bottle of Tylenol pills open near the patient. She also reports that her mom takes [place] every 4 hours continuously in conjunction with her home medications. Recently she was discharged from [facility] with a diagnosis of ESBL UTI and has a right arm PICC . Patient's daughter reports that her mom was extremely lethargic but upon examination the patient is alert and oriented x4 answers all questions appropriately and is cooperative. Hospital course: Initial CXR revealed left basilar subsegmental atelectasis and patient was treated for possible community-acquired pneumonia with IV doxycycline 100 mg b.i.d. and continuation of IV ertapenem 1 g daily for ESBL UTI diagnosed in [facility] [address] head without contrast revealed no acute intracranial abnormality and UDS was positive for opioids and acetaminophen level was less than 2, ammonia 109 and TSH was low and subsequent T3 and T4 were low ,possible euthyroid sick syndrome/ hypothyroidism. Ultrasound of liver revealed hepatomegaly with hepatic steatosis and nodular contour, fatty pancreas, cholecystectomy with dilated common bile duct. patient was treated with lactulose 15 mL b.i.d., prednisolone for 40 mg IV daily, Lovenox 40 mg sc daily, breathing treatment q.6 hours, pantoprazole 40 mg daily IV and continuation of all home meds. consulted regarding resume home health after discharge for continuation of IV antibiotics ertapenem 1 g daily for 7 days. Discharge plan was discussed with the patient and the daughter and all questions were answered. Patient is being discharged to home. Discharge diagnosis: # Acute metabolic encephalopathy likely secondary to hyperammonemia # Possible Euthyroid sick syndome # Acute complicated UTI due to ESBL # Possible community-acquired Gram-positive/gram negative pneumonia # Acute on chronic respiratory failure likely due to above # Possible COPD exaccerbation # History of ESBL in left buttock wound # Hypokalemia # History of chronic diastolic heart failure # Hypertensive heart disease # chronic back pain Discharge Plan: Disposition: Home Medications: 100 mg b.i.d. for 6 days, lactulose 15 mL b.i.d. for 30 days, prednisolone 40 mg daily for 3 days and continued all home meds. Follow up : [facility] clinic in 1 week PCP in 1 to 2 week and check TSH, [facility] Outpatient GI in 1 to 2 weeks for workup of SNYDER Consults/Reason for consult No consultation was done. Operations or Procedures CHEST RADIOGRAPH Indication: sob Technique: Single frontal view of the chest was obtained COMPARISON: XY CHEST PORTABLE on DOS: 06/23/24, XY CHEST PORTABLE on DOS: 06/20/24, XY CHEST PORTABLE on DOS: 06/18/24, XY CHEST XRAY 1 VIEW on DOS: 05/24/24, XY CHEST PORTABLE on DOS: 03/19/24 FINDINGS: Lines and Tubes: None Lungs: Left basilar subsegmental atelectasis. Pleura: No effusion. No pneumothorax. Cardiomediastinal contours: Unremarkable Bones: Chronic appearing right posterior 7th rib fracture. IMPRESSION: Left basilar subsegmental atelectasis. EXAM: CT HEAD WITHOUT CONTRAST HISTORY: altered COMPARISON: CT HEAD WITHOUT CONTRAST on DOS: 05/26/24, CT CHEST WITHOUT CONTRAST on DOS: 03/20/24 TECHNIQUE: Axial images of the head were obtained and reformatted in coronal and sagittal planes. All CT scans at this medical facility are performed using dose modulation techniques as appropriate to a performed exam including the following: Automated exposure control was utilized; adjustment of the MA and/or KV according to patient size; and use of iterative reconstruction technique. CT Dose: CTDI volume is 59 mGy. Dose-length product is 1168 mGy*cm FINDINGS: There is no evidence of acute intracranial hemorrhage, mass, mass effect midline shift. There is no hydrocephalus or extra-axial fluid collection. Sorensen-white matter differentiation is maintained. There is a small retention cyst in the left maxillary sinus. The mastoid air cells are clear. The calvarium is intact. IMPRESSION: 1. No acute intracranial process. EXAM: US LIVER CLINICAL HISTORY: Hyperammonemia, rule out cirrhosis TECHNIQUE: Grayscale and limited color flow doppler ultrasound of the right upper quadrant is performed. COMPARISON: None Findings: Liver measures 23.3 cm in length with increased echotexture and nodular contour. No evidence of focal hepatic lesions or intra- or extrahepatic ductal dilatation. Common bile duct measures 1.5 cm in diameter. Normal hepatopedal flow noted within the portal vein. No perihepatic free fluid is noted. Cholecystectomy. Negative sonographic Alvarez's sign. Pancreas is echogenic. Right kidney measures 10.7 cm with normal contours, echotexture and cortical thickness. No evidence of hydronephrosis, calculi, cystic or solid renal lesions. Partially visualized inferior vena cava unremarkable. Impression: 1. No evidence of acute right upper quadrant abnormalities. 2. Hepatomegaly with hepatic steatosis and nodular contour. Correlate for hepatic cirrhosis. Consider further evaluation with contrast enhanced MRI as clinically indicated. 3. Fatty pancreas. 4. Cholecystectomy with dilated common bile duct. Condition at Discharge: Guarded Final Diagnosis/Problems List Assessment and Plan: # Acute metabolic encephalopathy likely secondary to hyperammonemia # Possible Euthyroid sick syndome # Acute complicated UTI due to ESBL # Possible community-acquired Gram-positive/gram negative pneumonia # Acute on chronic respiratory failure likely due to above # Possible COPD exaccerbation # History of ESBL in left buttock wound # Hypokalemia # History of chronic diastolic heart failure # Hypertensive heart disease # chronic back pain Discharge Disposition: Home Discharge Instruct/Medications Diet: Regular Activity: No Restrictions, As Tolerated Follow Up/Referral: Follow up with DC clinic 1 week. Follow up with outpatient GI For work up of SNYDER Medications: As per EMR Discharge Statement: "Patient was advised to return to the ER or call 911 if any headaches, dizziness, shortness of breath, chest pain, abdominal pain, bleeding, fevers, or worsening of medical condition. Patient was counseled about treatment plan, medications, possible side effects, patientverbalized understanding. All questions were answered to the best of my ability. This discharge took greater then 30 minutes in planning, reviewing documentation, counseling the patient, and discussing with other team members." ASSESSMENT ASSESSMENT Assessment Assessment and Plan: # Acute metabolic encephalopathy likely secondary to hyperammonemia # Possible Euthyroid sick syndome # Acute complicated UTI due to ESBL # Possible community-acquired Gram-positive/gram negative pneumonia # Acute on chronic respiratory failure likely due to above # Possible COPD exaccerbation # History of ESBL in left buttock wound # Hypokalemia # History of chronic diastolic heart failure # Hypertensive heart disease # chronic back pain Date of Service: Aug 22, 2024 Billing Provider: GLORIA ACHARYA MD Common Visit Codes: 37587-QIN/OBS DISCH DAY >30min FARDOUSHANNAH Aug 22, 2024 14:57 GLORIA ACHARYA MD Aug 28, 2024 15:27
== END 2024-08-22 15:54 | disposition home health service (06) | DRG 812 ==
LOC: ER 08:46 → EDBD 08:46 → OVERFLOW 14:24 → CENTRAL 14:31
PROVIDERS: ADMIT Student in an Organized Health Care Education/Training Program; ATTEND Student in an Organized Health Care Education/Training Program
DX: T50.991A Poisoning by other drugs, medicaments and biological substances, accidental (unintentional), initial encounter (principal); J96.20 Acute and chronic respiratory failure, unspecified whether with hypoxia or hypercapnia; G92.8 Other toxic encephalopathy; J15.69 Pneumonia due to other Gram-negative bacteria; N17.9 Acute kidney failure, unspecified; E72.20 Disorder of urea cycle metabolism, unspecified; I50.32 Chronic diastolic (congestive) heart failure; L89.222 Pressure ulcer of left hip, stage 2; I50.9 Heart failure, unspecified; J15.9 Unspecified bacterial pneumonia; J44.1 Chronic obstructive pulmonary disease with (acute) exacerbation; N39.0 Urinary tract infection, site not specified; E87.6 Hypokalemia; G89.29 Other chronic pain; Z82.49 Family history of ischemic heart disease and other diseases of the circulatory system; Z79.899 Other long term (current) drug therapy; Y92.89 Other specified places as the place of occurrence of the external cause
CPT/HCPCS: 36415; 36600; 70450; 71045; 76705; 80048; 80053; 80307; 80329; 81001; 82140; 82805; 83605; 83735; 83880; 84439; 84443; 84481; 84484; 85025; 85610; 85730; 86704; 86706; 86708; 86803; 87040; 87077; 87081; 87186; 87205; 87340; 87426; 87804; 93005; 94640; 96361; 96365; 99291; 99292; G0378; J1335; J2470; J2543; J3490

== ENCOUNTER 2024-09-16 08:43 | Inpatient (IN) | payer MEDICAID ==
[2024-09-13 10:42] LABS: Basophils # (auto) 0.1 10 ^3/uL (0-0.2); Basophils % (auto) 0.7 % (0.0-2.0); Eosinophils # (auto) 0.7 10 ^3/uL (0-0.8); Eosinophils % (auto) 4.8 % (0.0-7.0); Hematocrit 43.5 % (36.0-46.0); Hemoglobin 14.5 g/dL (12.2-16.2); Lymphocytes # (auto) 3.3 10 ^3/uL (0.4-5.4); Lymphocytes % (auto) 21.5 % (10.0-50.0); Mean Corpuscular Hemoglobin 32.1 pg (28.0-32.0); Mean Corpuscular Hgb Conc. 33.4 g/dL (32.0-36.0); Mean Corpuscular Volume 96.1 fL (80.0-100.0); Monocytes % (auto) 6.3 % (0.0-12.0); Neutrophils # (auto) 10.2 10 ^3/uL (1.6-8.6); Neutrophils % (auto) 66.7 % (37.0-80.0); Nucleated Red Blood Cells % 0.1 %; Platelet Count (auto) 243 10^3/uL (140-450); Red Blood Cells 4.53 10^6/uL (4.0-5.20); Red Cell Distribution Width 13.7 % (11.8-14.3); White Blood Cell 15.3 10^3/uL (4.4-10.8)
[2024-09-13 11:00] LABS: INR 0.92 (0.9-1.15); Partial Thromboplastin Time 22.8 SEC (24.5-34.5); Prothrombin Time 9.8 sec (9.3-11.8)
[2024-09-13 11:42] LABS: Urine Bacteria None Seen /hpf (None Seen)
[2024-09-13 11:59] LABS: Urine Blood Negative /uL (Negative); Urine Clarity Clear (Clear); Urine Protein, UAD Negative (Negative); Urine Specific Gravity 1.007 (1.001-1.035); Urine Squamous Epithelial Cell FEW /hpf (<5); Urine Urobilinogen Normal (Negative); Urine WBC < 1 /HPF (0-5)
[2024-09-13 12:02] LABS: Urine Color Light-Yellow (Yellow)
[2024-09-13 12:50] LABS: Alanine Aminotransferase 21 U/L (7-40); Albumin 4.9 g/dL (3.2-4.8); Alkaline Phosphatase 95 U/L (46-116); Anion Gap 6 (5-15); Aspartate Aminotransferase 22 U/L (13-40); Blood Urea Nitrogen 12 mg/dL (9-23); Calcium 11.2 mg/dL (8.7-10.4); Carbon Dioxide 31 mmol/L (20-31); Chloride 104 mmol/L (98-107); Glucose 150 mg/dL (74-106); Potassium 4.7 mmol/L (3.5-5.1); Sodium 141 mmol/L (136-145); Total Protein 7.4 g/dL (5.7-8.2)
[2024-09-13 12:51] LABS: Bilirubin, Total 0.3 mg/dL (0.2-1.0)
[2024-09-16] VITALS (8 sets, daily range): BP systolic 95–98; BP diastolic 47–62; PULSE 68–80; RESP 13–20; TEMP 97.5–98.7; O2SAT 88–98
[~2024-09-16] VITALS: Ht 172.7 cm; Wt 96.0 kg
[~2024-09-16 08:43] MED LIST changes: -ALBU0.084 NEB; -ALBU108A5 IN; +ALBU2TAB11 INH; +ASCO500T11 PO; +ASPI-543 PO; -CARV12.544 PO; +CARV6.2517 PO; +D-MA500C PO; -DICL1GEL59 EX; -DULO-141 PO; +EVOL140I SC; -HYDR-4072 PO; +HYDR-4902 PO; +LACT10SO3 PO; -LIDO1PAD55 EX; -MAGN400T40 PO; -MID10T PO; +MULT1CAP35 PO; -NITR-52 PO; +OMEG-20 PO; -OMEP-448 PO; +OMEP20TA PO; +POTA-36 PO; +SACC1CAP3 PO; -TEMA30CA PO; -ZOLP10TA6 PO
[2024-09-16] MEDS: ceFAZolin 2 GM/D5W100ml 100 ML IV ONE (10:15)
[2024-09-16] MEDS ORDERED: fentaNYL CITRATE 100 MCG/2 ML VL ONE (10:38)
[2024-09-16] MEDS ORDERED: PROPOFOL 10 MG/ML 20 ML IV ONE (10:39)
[2024-09-16] MEDS ORDERED: ONDANSETRON HCL 4 MG/2 ML VIAL ONE (11:32)
[2024-09-16] MEDS ORDERED: ePHEDrine SULFATE 50 MG/ML AMP ONE (11:35)
[2024-09-16] MEDS ORDERED: MEPERIDINE HCL (25 MG/ML) 1ML VIAL ONE (11:39)
[2024-09-16] MEDS ORDERED: ceFAZolin 1GM VL ONE (11:51)
--- NOTE | 2024-09-16 12:20 | DVHOP2 ---
Operative Report - 2 Report Details Date: 09/16/24 Preop Diagnosis: Right lateral thigh spider bite necrosis abscess Postop Diagnosis: Same Surgeon: Da Li MD Anesthesiologist: General endotracheal tube Anesthesia: General Consent: The patient was informed of the risks and benefits of the procedure. These include but are not limited to complications of anesthesia, postoperative infection, incomplete relief of symptoms, recurrence of symptoms, damage to blood vessels, nerves and tendons, deep venous thrombosis, pulmonary embolism and possible need for repeat surgery in the future. Estimated Blood Loss: 25 mL Findings: Deep tissue necrosis of the wound Indications for Surgery: Left necrotic thigh wound Name of Procedure Performed Left thigh wound deep tissue including down to fascia debridement. Wound VAC placement. Procedure Details Procedure Details: Patient was identified in the preop hold area. She was consented in preop by myself she was brought back to the operating and posterior operating room table in supine position after adequate induction of anesthesia antibiotics and time- out left thigh was then prepped and draped in normal surgical fashion the large necrotic wound was then circumferentially excised the necrosis of the wound extended more anterior which was debrided down to healthy bleeding fatty tissue. The deep layer was also necrotic which was also excised down to healthy bleeding soft tissue down to fascia. Once the wound had been debrided and cultures had been sent off. The wound was then pulse irrigated with a L of antibiotic soaked irrigation. Wound was then inspected no further bleeding was noted and at this point in time the was dressed with a wound VAC to 125 mm of Hg suction. Patient tolerated procedure well was taken to the PACU in a stable condition dictation complete. Specimen: Left thigh necrotic tissue. Multiple wound cultures Condition Good Disposition pacu DA LI Jr., MD Sep 16, 2024 12:20
[2024-09-16] MEDS ORDERED: MEPERIDINE HCL (25 MG/ML) 1ML VIAL IV PRN (12:30)
[2024-09-16] MEDS ORDERED: ACETAMINOPHEN IV 1000 MG/100ML (10MG/ML) IV PRN (12:30)
[2024-09-16] MEDS: HYDROmorphone HCL 2 MG/ML VL/or syr IV PRN ×2 (12:53→15:46)
[2024-09-16] MEDS: ACETAMINOPHEN IV 100 ML IV ONE (12:56)
[2024-09-16] MEDS ORDERED: NITROGLYCERIN 0.4 MG SL TAB SL PRN (13:15)
[2024-09-16] MEDS ORDERED: MORPHINE SULFATE INJ 2 MG/ml SYRG IV PRN (13:15)
--- NOTE | 2024-09-16 13:58 | DVHHP2 ---
Review of Systems Allergies: Coded Allergies: Influenza Vaccines (Unverified Allergy, Severe, hypotension/coma, 09/13/24) Pneumococcal Vaccines (Unverified Allergy, Severe, hypotension/coma, 09/13/24) Codeine (Unverified Allergy, Intermediate, itchy, 09/13/24) Medications Current Medications Medications Dose Ordered Sig/[place] Route Start Time Stop Time Status Last Admin Dose Admin Nitroglycerin 0.4 mg Q5MINP PRN SL 09/16/24 13:15 Morphine Sulfate 2 mg Q30M PRN IV 09/16/24 13:15 UNV Exam Vital Signs Vital Signs Date Time Temp Pulse Resp B/P (MAP) Pulse Ox O2 Delivery O2 Flow Rate FiO2 09/16/24 13:20 66 20 103/63 09/16/24 10:20 93 Labs/Xrays Labs Test 09/13/24 11:40 09/13/24 10:27 Range/Units Urine Color Light-yellow Yellow Urine Clarity Clear Clear Urine pH 6.0 5.0-9.0 Urine Specific [place] 1.007 1.001-1.035 Urine Protein Negative Negative Urine Ketones Negative Negative Urine Blood Negative Negative /uL Urine Nitrite Negative Negative Urine Bilirubin Negative Negative Urine Urobilinogen Normal Negative mg/dL Urine Leukocyte Esterase Negative Negative /uL Urine RBC None seen 0 - 4 /hpf Urine Microscopic WBC < 1 0-5 /HPF Urine Squamous Epithelial Cells Few <5 /hpf Urine Bacteria None seen None Seen /hpf Urine Glucose Normal Normal mg/dL Sodium Level 141 136-145 mmol/L Potassium Level 4.7 3.5-5.1 mmol/L Chloride Level 104 98-107 mmol/L Carbon Dioxide Level 31 20-31 mmol/L Anion Gap 6 5-15 Blood Urea Nitrogen 12 9-23 mg/dL Creatinine 0.86 0.550-1.02 mg/dL Glomerular Filtration Rate Calc 77 >90 mL/min BUN/Creatinine Ratio 14.0 10.0-20.0 Serum Glucose 150 H 74-106 mg/dL Calcium Level 11.2 H 8.7-10.4 mg/dL Total Bilirubin 0.3 0.2-1.0 mg/dL Aspartate Amino Transferase (AST) 22 13-40 U/L Alanine Aminotransferase (ALT) 21 7-40 U/L Alkaline Phosphatase 95 46-116 U/L Total Protein 7.4 5.7-8.2 g/dL Albumin 4.9 H 3.2-4.8 g/dL White Blood Count 15.3 H 4.4-10.8 10^3/uL Red Blood Count 4.53 4.0-5.20 10^6/uL Hemoglobin 14.5 12.2-16.2 g/dL Hematocrit 43.5 36.0-46.0 % Mean Corpuscular Volume 96.1 80.0-100.0 fL Mean Corpuscular Hemoglobin 32.1 H 28.0-32.0 pg Mean Corpuscular Hemoglobin Concent 33.4 32.0-36.0 g/dL Red Cell Distribution Width 13.7 11.8-14.3 % Platelet Count 243 140-450 10^3/uL Mean Platelet Volume 9.6 6.9-10.8 fL Neutrophils (%) (Auto) 66.7 37.0-80.0 % Lymphocytes (%) (Auto) 21.5 10.0-50.0 % Monocytes (%) (Auto) 6.3 0.0-12.0 % Eosinophils (%) (Auto) 4.8 0.0-7.0 % Basophils (%) (Auto) 0.7 0.0-2.0 % Neutrophils # (Auto) 10.2 H 1.6-8.6 10 ^3/uL Lymphocytes # (Auto) 3.3 0.4-5.4 10 ^3/uL Monocytes # (Auto) 1.0 0-1.3 10 ^3/uL Eosinophils # (Auto) 0.7 0-0.8 10 ^3/uL Basophils # (Auto) 0.1 0-0.2 10 ^3/uL Nucleated Red Blood Cells 0.1 % Prothrombin Time 9.8 9.3-11.8 sec Prothrombin Time INR 0.92 0.9-1.15 Activated Partial Thromboplast Time 22.8 L 24.5-34.5 SEC Assessment/Plan Assessment/Plan SEE DICTATED NOTE Plan discussed with: Patient My Orders Orders - FRITZ SUNG MD Procedure Category Date Status Time Admit ADMIT 09/16/24 Transmitted 13:15 Oxygen By Nasal RT 09/16/24 Transmitted Cannula 13:15 Nitroglycerin PHA 09/16/24 In Process Sublingual (Ntrostat 13:15 Morphine Sulfate PHA 09/16/24 Logged Injection 13:15 Stat Ekg For Chest [facility] 09/16/24 In Process Pain 13:15 Notify Md Of Changes [facility] 09/16/24 In Process From Base 13:15 Fur Dyer For [facility] 09/16/24 In Process 24 Hours 13:15 Emergency Dysrhythmia [facility] 09/16/24 In Process Protocol 13:15 Rhythm Strips Once [facility] 09/16/24 In Process Every Shift 13:15 Albuterol Medneb PHA 09/16/24 Verified (Ventolin Medneb) 18:00 Ipratropium Medneb PHA 09/16/24 Verified (Atrovent Medneb) 18:00 Pregabalin Capsule PHA 09/16/24 Verified (Lyrica Capsule) 14:00 Quetiapine Fumarate PHA 09/16/24 Verified Tablet (Seroquel Tab 22:00 Hydrocodone-Acet PHA 09/16/24 Verified 5/325mg Tab ([place] 14:00 Acetaminophen Tablet PHA 09/16/24 Verified (Tylenol Tablet) 14:00 Hydromorphone PHA 09/16/24 Verified Injection (Dilaudid 14:00 Pantoprazole Tablet PHA 09/17/24 Verified (Protonix Tablet) 06:00 Ondansetron Hcl PHA 09/16/24 Verified (Zofran) 14:00 Invanz 1gm Ivpb X One PHA 09/16/24 Verified 14:00 Invanz 1gm Ivpb Daily PHA 09/17/24 Verified 10:00 Complete Blood Count LAB 09/17/24 Verified 06:00 Comprehensive LAB 09/17/24 Verified Metabolic Panel 06:00 2 Gm Sodium Diet DIET 09/16/24 Verified Dinner Furosemide Tablet PHA 09/17/24 Verified (Lasix Tablet) 10:00 Potassium Er Tablet PHA 09/17/24 Verified (Klor-Con Tablet) 10:00 Date of Service: Sep 16, 2024 Billing Provider: FRITZ SUNG MD Common Visit Codes: 06781-[id number] INP/OBS CARE (HIGH) Secondary Visit Codes: 92569-[id number] CHNG SMOKING >10MIN FRITZ SUNG MD Sep 16, 2024 13:58
[2024-09-16] MEDS ORDERED: ACETAMINOPHEN 325 MG TAB PO PRN (14:00)
--- NOTE | 2024-09-16 14:17 | DVHHP ---
ADMIT DATE: 09/16/2024 HISTORY OF PRESENT ILLNESS: The patient is a 59-year-old lady who was admitted after she underwent debridement on the left thigh for a deep tissue infection. The patient at this time complains of pain at the site. No chest pain, no shortness of breath. No nausea or vomiting. REVIEW OF SYSTEMS: Review of rest of systems are otherwise currently negative. PAST MEDICAL HISTORY: Significant for COPD, congestive heart failure, hypertension, anxiety, sleep apnea, chronic respiratory failure and history of left hip spider bite wound with previous ESBL infection. MEDICATIONS: Albuterol, aspirin, Coreg, Lasix, gabapentin, omeprazole, pregabalin and Seroquel. ALLERGIES: CODEINE AND INFLUENZA AND PNEUMOCOCCAL VACCINE. SOCIAL HISTORY: Continues to smoke about a pack a day. Lives with her daughter. FAMILY HISTORY: Negative. PHYSICAL EXAMINATION: GENERAL: The patient is awake, alert. VITAL SIGNS: Temperature of 98.6, pulse 72 per minute, blood pressure 127/62. SHEENT: Unremarkable. NECK: There is no JVD, no pedal edema. LUNGS: Equal bilaterally. They are diminished. CARDIOVASCULAR: S1, S2 is regular, no murmurs. ABDOMEN: Soft. There is no organomegaly. NEUROLOGIC: Nonfocal. MUSCULOSKELETAL: There is a left hip wound VAC in place. ASSESSMENT AND PLAN: * Chronic obstructive pulmonary disease, for which she will be placed on bronchodilators. * Chronic respiratory failure. * Tobacco abuse, for which the patient has been advised to quit. She refuses a nicotine patch. Time spent was 11 minutes. * Chronic diastolic heart failure. * Hypertension. * Chronic back pain. * Anxiety/depression. * Obesity. * Previous extended-spectrum beta-lactamase Escherichia coli infection in the left hip. MD LAURA Suarez/ARV TID: [id number] RECEIPT: [id number]
[2024-09-16] MEDS: PREGABALIN CAPSULE 75 MG CAP PO SCH (15:44)
[2024-09-16] MEDS: ERTAPENEM SOD INJ 1 GM in SODIUM CHL 0.9% 50 ML IV ONE (18:06)
[2024-09-16] MEDS: HYDROcodone-ACET 5/325MG TAB PO PRN (18:08)
[2024-09-16] MEDS: ONDANSETRON HCL 4 MG/2 ML VIAL IV PRN (18:08)
[2024-09-16] MEDS: ALBUTEROL SULF 2.5 MG/0.5ML(0.5%) NEB SOLN NEB SCH (20:19)
[2024-09-16] MEDS: IPRATROPIUM BROM 0.5 MG/2.5ML INH SOL NEB SCH (20:19)
[2024-09-16] MEDS: QUEtiapine FUMARATE 100 MG TAB PO SCH (21:45)
[2024-09-16] MEDS: ZOLPIDEM TARTRATE 5 MG TAB PO PRN (21:46)
[2024-09-17] VITALS (12 sets, daily range): BP systolic 92–116; BP diastolic 49–64; PULSE 62–78; RESP 16–20; TEMP 96.6–98.1; O2SAT 92–98
[2024-09-17] MEDS: PANTOPRAZOLE 40 MG TAB PO SCH (06:21)
[2024-09-17 07:49] LABS: Basophils # (auto) 0.1 10 ^3/uL (0-0.2); Basophils % (auto) 0.8 % (0.0-2.0); Eosinophils # (auto) 0.3 10 ^3/uL (0-0.8); Eosinophils % (auto) 3.5 % (0.0-7.0); Hematocrit 35.2 % (36.0-46.0); Hemoglobin 11.6 g/dL (12.2-16.2); Lymphocytes % (auto) 34.1 % (10.0-50.0); Mean Corpuscular Hemoglobin 31.8 pg (28.0-32.0); Mean Corpuscular Hgb Conc. 32.9 g/dL (32.0-36.0); Mean Corpuscular Volume 96.7 fL (80.0-100.0); Monocytes # (auto) 0.6 10 ^3/uL (0-1.3); Monocytes % (auto) 6.8 % (0.0-12.0); Neutrophils # (auto) 4.8 10 ^3/uL (1.6-8.6); Neutrophils % (auto) 54.8 % (37.0-80.0); Nucleated Red Blood Cells % 0.3 %; Platelet Count (auto) 241 10^3/uL (140-450); Red Blood Cells 3.64 10^6/uL (4.0-5.20); Red Cell Distribution Width 13.4 % (11.8-14.3); White Blood Cell 8.8 10^3/uL (4.4-10.8)
[2024-09-17 08:12] LABS: Anion Gap 8 (5-15); Calcium 9.4 mg/dL (8.7-10.4); Carbon Dioxide 25 mmol/L (20-31); Potassium 3.8 mmol/L (3.5-5.1); Sodium 141 mmol/L (136-145)
[2024-09-17 08:14] LABS: Alkaline Phosphatase 75 U/L (46-116)
[2024-09-17 08:16] LABS: Alanine Aminotransferase 17 U/L (7-40)
[2024-09-17 08:17] LABS: BUN/Creatinine Ratio 12.5 (10.0-20.0); Blood Urea Nitrogen 9 mg/dL (9-23)
[2024-09-17 08:18] LABS: Albumin 3.7 g/dL (3.2-4.8); Aspartate Aminotransferase 17 U/L (13-40)
[2024-09-17 08:20] LABS: Bilirubin, Total 0.2 mg/dL (0.2-1.0); Chloride 108 mmol/L (98-107); Glucose 67 mg/dL (74-106); Total Protein 5.6 g/dL (5.7-8.2)
[2024-09-17] MEDS: ERTAPENEM SOD INJ 1 GM in SODIUM CHL 0.9% 50 ML IV SCH (08:43)
[2024-09-17] MEDS: POTASSIUM CHLORIDE 8 MEQ TAB PO SCH (08:45)
[2024-09-17] MEDS: FUROSEMIDE 40 MG TAB PO SCH (08:45)
--- NOTE | 2024-09-17 10:24 | DVHPN2 ---
Progress Note Date Seen: Sep 17, 2024 Medical Necessity Reason Pt with a Central, PICC or Fol: No Subjective Patient reports: No new complaints Review of Systems: HEENT:Normal, CVS:Normal, RESPIRATORY:Normal, GI:Normal, :Normal, MSK:Normal, NEURO:Normal Objective vital signs Vital Sign Date Time Temp Pulse Resp B/P (MAP) Pulse Ox O2 Delivery O2 Flow Rate FiO2 09/17/24 09:00 98.1 65 20 116/49 (71) 92 98.1 09/17/24 07:00 Room Air 0.0 09/17/24 07:00 21 Total Intake and Output 09/16/24 09/16/24 09/17/24 15:00 23:00 07:00 Intake Total 200 ml 250 ml 550 ml Output Total 600 ml Balance 200 ml 250 ml -50 ml medications Current Medications Medications Dose Ordered Sig/Sumanth Route Start Time Stop Time Status Last Admin Dose Admin Nitroglycerin 0.4 mg Q5MINP PRN SL 09/16/24 13:15 Morphine Sulfate 2 mg Q30M PRN IV 09/16/24 13:15 Albuterol 2.5 mg Q6HWA NEB 09/16/24 18:00 09/17/24 07:00 2.5 MG Ipratropium [place] 0.5 mg Q6HWA NEB 09/16/24 18:00 09/17/24 07:00 0.5 MG Pregabalin 150 mg TID PO 09/16/24 14:00 09/17/24 06:22 150 MG Quetiapine Fumarate 400 mg HS PO 09/16/24 22:00 09/16/24 21:45 400 MG Acetaminophen/ Hydrocodone Bitart 1 tab Q6HPRN PRN PO 09/16/24 14:00 09/17/24 04:35 1 TAB Acetaminophen 650 mg Q6HP PRN PO 09/16/24 14:00 Hydromorphone HCl 0.5 mg Q4HPRN PRN IV 09/16/24 14:00 09/17/24 08:44 0.5 MG Pantoprazole Sodium 40 mg DAILY@0600 PO 09/17/24 06:00 09/17/24 06:21 40 MG Ondansetron HCl 4 mg Q6HPRN PRN IV 09/16/24 14:00 09/16/24 18:08 4 MG Ertapenem 1 gm/ Sodium Chloride 50 ml @ 100 mls/hr DAILY IV 09/17/24 10:00 09/17/24 08:43 100 MLS/HR Furosemide 40 mg DAILY PO 09/17/24 10:00 09/17/24 08:45 40 MG Potassium Chloride 16 meq DAILY PO 09/17/24 10:00 09/17/24 08:45 16 MEQ Zolpidem Tartrate 10 mg HSPRN PRN PO 09/16/24 22:00 09/16/24 21:46 10 MG Examination: GENERAL:Normal, HEENT:Normal, NECK:Normal, LUNGS:Normal, CVS:Normal, ABDOMEN:Normal, MSK:Normal, MSK:Abnormal (left hip wound vac), SKIN:Normal, NEURO:Normal, :Normal laboratory and microbiology Laboratory Tests 09/17/24 05:37 Test 09/17/24 05:37 Range/Units Serum Glucose 67 L 74-106 mg/dL Problem List/Assessment/Plan Problem List/Assessment/Plan * Chronic obstructive pulmonary disease, for which she will be placed on bronchodilators. * Chronic respiratory failure: on oxygen * Tobacco abuse, for which the patient has been advised to quit. She refuses a nicotine patch. Time spent was 11 minutes. * Chronic diastolic heart failure: on lasix * Hypertension. * Chronic back pain. * Anxiety/depression. * Obesity. * Previous extended-spectrum beta-lactamase Escherichia coli infection in the left hip/urine: iv invanz pending cultures * s/p left hip debridement: wound vac in place advance care planning- full code- time spent 18 mins Plan discussed with: Patient My Orders My Orders Orders - FRITZ SUNG MD Procedure Category Date Status Time Admit ADMIT 09/16/24 Transmitted 13:15 Oxygen By Nasal RT 09/16/24 Transmitted Cannula 13:15 Nitroglycerin PHA 09/16/24 In Process Sublingual (Ntrostat 13:15 Morphine Sulfate PHA 09/16/24 In Process Injection 13:15 Stat Ekg For Chest MARCI 09/16/24 In Process Pain 13:15 Notify Of Changes MARCI 09/16/24 In Process From Base 13:15 Arresting Gear Operator For MARCI 09/16/24 In Process 24 Hours 13:15 Emergency Dysrhythmia MARCI 09/16/24 In Process Protocol 13:15 Rhythm Strips Once MARCI 09/16/24 In Process Every Shift 13:15 Albuterol Medneb PHA 09/16/24 In Process (Ventolin Medneb) 18:00 Ipratropium Medneb PHA 09/16/24 In Process (Atrovent Medneb) 18:00 Pregabalin Capsule PHA 09/16/24 In Process (Lyrica Capsule) 14:00 Quetiapine Fumarate PHA 09/16/24 In Process Tablet (Seroquel Tab 22:00 Hydrocodone-Acet PHA 09/16/24 In Process 5/325mg Tab ([place] 14:00 Acetaminophen Tablet PHA 09/16/24 In Process (Tylenol Tablet) 14:00 Hydromorphone PHA 09/16/24 In Process Injection (Dilaudid 14:00 Pantoprazole Tablet PHA 09/17/24 In Process (Protonix Tablet) 06:00 Ondansetron Hcl PHA 09/16/24 In Process (Zofran) 14:00 Ertapenem Sod Inj PHA 09/17/24 In Process (Invanz) 10:00 2 Gm Sodium Diet DIET 09/16/24 Transmitted Dinner Furosemide Tablet PHA 09/17/24 In Process (Lasix Tablet) 10:00 Potassium Er Tablet PHA 09/17/24 In Process (Klor-Con Tablet) 10:00 Urine Bacterial CHRISTINE 09/16/24 In Process Culture 17:36 Zolpidem Tartrate PHA 09/16/24 In Process (Ambien) 22:00 Date of Service: Sep 17, 2024 Billing Provider: FRITZ SUNG MD Common Visit Codes: [id number] INP/OBS CARE(HIGH) Secondary Visit Codes: [id number] CARE PLAN 30 MINUTES FRITZ SUNG MD Sep 17, 2024 10:24
[2024-09-17] MEDS: ONDANSETRON HCL 4 MG/2 ML VIAL IV ONE (13:25)
--- NOTE | 2024-09-17 15:20 | DVHPN2 ---
Progress Note - Surgical Date Seen: Sep 17, 2024 Post op day Post op day: 1 Subjective Patient reports: No new complaints Review of Systems: HEENT:Normal, CVS:Normal, RESPIRATORY:Normal, GI:Normal, :Normal, MSK:Normal, NEURO:Normal Objective Vital signs Vital Sign Date Time Temp Pulse Resp B/P (MAP) Pulse Ox O2 Delivery O2 Flow Rate FiO2 09/17/24 13:25 99 19 124/73 09/17/24 13:00 98.1 93 98.1 09/17/24 12:29 Room Air* 0 21 Total Intake and Output 09/16/24 09/16/24 09/17/24 15:00 23:00 07:00 Intake Total 200 ml 250 ml 550 ml Output Total 600 ml Balance 200 ml 250 ml -50 ml Medications Current Medications Medications Dose Ordered Sig/Sumanth Route Start Time Stop Time Status Last Admin Dose Admin Nitroglycerin 0.4 mg Q5MINP PRN SL 09/16/24 13:15 Morphine Sulfate 2 mg Q30M PRN IV 09/16/24 13:15 Albuterol 2.5 mg Q6HWA NEB 09/16/24 18:00 09/17/24 12:29 2.5 MG Ipratropium [place] 0.5 mg Q6HWA NEB 09/16/24 18:00 09/17/24 12:29 0.5 MG Pregabalin 150 mg TID PO 09/16/24 14:00 09/17/24 13:25 150 MG Quetiapine Fumarate 400 mg HS PO 09/16/24 22:00 09/16/24 21:45 400 MG Acetaminophen/ Hydrocodone Bitart 1 tab Q6HPRN PRN PO 09/16/24 14:00 09/17/24 10:39 1 TAB Acetaminophen 650 mg Q6HP PRN PO 09/16/24 14:00 Hydromorphone HCl 0.5 mg Q4HPRN PRN IV 09/16/24 14:00 09/17/24 13:25 0.5 MG Pantoprazole Sodium 40 mg DAILY@0600 PO 09/17/24 06:00 09/17/24 06:21 40 MG Ondansetron HCl 4 mg Q6HPRN PRN IV 09/16/24 14:00 09/16/24 18:08 4 MG Ertapenem 1 gm/ Sodium Chloride 50 ml @ 100 mls/hr DAILY IV 09/17/24 10:00 09/17/24 08:43 100 MLS/HR Furosemide 40 mg DAILY PO 09/17/24 10:00 09/17/24 08:45 40 MG Potassium Chloride 16 meq DAILY PO 09/17/24 10:00 09/17/24 08:45 16 MEQ Zolpidem Tartrate 10 mg HSPRN PRN PO 09/16/24 22:00 09/16/24 21:46 10 MG Laboratory Laboratory Tests 09/17/24 05:37 Test 09/17/24 05:37 Range/Units Serum Glucose 67 L 74-106 mg/dL Microbiology Date/Time Source Procedure Growth Status 09/16/24 20:37 Voided Urine Urine Culture - Preliminary Resulted 09/16/24 11:58 Hip Anaerobic Culture - Preliminary Resulted Examination: GENERAL:Normal, HEENT:Normal, NECK:Normal, LUNGS:Normal, CVS:Normal, ABDOMEN:Normal, MSK:Normal, SKIN:Abnormal (left hip wound, wound vac) Labs and/or images reviewed: Labs reviewed by me Problem List/Assessment/Plan Problems: (1) S/P debridement (2) Encounter for management of wound VAC (3) Cellulitis of left thigh (4) Escherichia coli (E. coli) infection (5) History of extended-spectrum beta-lactamase producing Escherichia coli infection Assessment and Plan status post debridement and placement of wound vac wound vac sanguineous output patient complaint of pain from left hip wound Plan: Continue with IV antibiotics change wound vac on Monday before discharge Plan discussed with Plan discussed with: Patient Visit Coding Surgery Date of Service if different f: Sep 17, 2024 Billing Provider: KARTIK NEAL MD Surgery Visit Codes: [id number] INP/OBS CARE(HIGH) ALESIA LU [facility] Sep 17, 2024 15:20
[2024-09-18] VITALS (13 sets, daily range): BP systolic 99–131; BP diastolic 51–78; PULSE 60–89; RESP 18–20; TEMP 97.7–98.1; O2SAT 87–99
--- NOTE | 2024-09-18 09:41 | DVHPN2 ---
Progress Note - Surgical Date Seen: Sep 18, 2024 Post op day Post op day: 2 Subjective Patient reports: No new complaints Review of Systems: HEENT:Normal, CVS:Normal, RESPIRATORY:Normal, GI:Normal, :Normal, MSK:Abnormal (pain left hip), NEURO:Normal Objective Vital signs Vital Sign Date Time Temp Pulse Resp B/P (MAP) Pulse Ox O2 Delivery O2 Flow Rate FiO2 09/18/24 06:39 76 18 105/51 09/18/24 06:16 95 Nasal Cannula 2.0 09/18/24 06:16 28 09/18/24 05:00 98.1 98.1 Total Intake and Output 09/17/24 09/17/24 09/18/24 15:00 23:00 07:00 Intake Total 50 ml 2200 ml 1000 ml Balance 50 ml 2200 ml 1000 ml Medications Current Medications Medications Dose Ordered Sig/Sumanth Route Start Time Stop Time Status Last Admin Dose Admin Nitroglycerin 0.4 mg Q5MINP PRN SL 09/16/24 13:15 Morphine Sulfate 2 mg Q30M PRN IV 09/16/24 13:15 Albuterol 2.5 mg Q6HWA NEB 09/16/24 18:00 09/18/24 06:09 2.5 MG Ipratropium [place] 0.5 mg Q6HWA NEB 09/16/24 18:00 09/18/24 06:09 0.5 MG Pregabalin 150 mg TID PO 09/16/24 14:00 09/18/24 05:33 150 MG Quetiapine Fumarate 400 mg HS PO 09/16/24 22:00 09/17/24 22:50 400 MG Acetaminophen/ Hydrocodone Bitart 1 tab Q6HPRN PRN PO 09/16/24 14:00 09/18/24 07:52 1 TAB Acetaminophen 650 mg Q6HP PRN PO 09/16/24 14:00 Hydromorphone HCl 0.5 mg Q4HPRN PRN IV 09/16/24 14:00 09/18/24 06:09 0.5 MG Pantoprazole Sodium 40 mg DAILY@0600 PO 09/17/24 06:00 09/18/24 05:33 40 MG Ondansetron HCl 4 mg Q6HPRN PRN IV 09/16/24 14:00 09/18/24 06:43 4 MG Ertapenem 1 gm/ Sodium Chloride 50 ml @ 100 mls/hr DAILY IV 09/17/24 10:00 09/17/24 08:43 100 MLS/HR Furosemide 40 mg DAILY PO 09/17/24 10:00 09/17/24 08:45 40 MG Potassium Chloride 16 meq DAILY PO 09/17/24 10:00 09/17/24 08:45 16 MEQ Zolpidem Tartrate 10 mg HSPRN PRN PO 09/16/24 22:00 09/17/24 22:51 10 MG Laboratory Laboratory Tests 09/17/24 05:37 Test 09/17/24 05:37 Range/Units Serum Glucose 67 L 74-106 mg/dL Microbiology Date/Time Source Procedure Growth Status 09/16/24 20:37 Voided Urine Urine Culture - Preliminary Resulted 09/16/24 11:58 Hip Anaerobic Culture - Preliminary Resulted Examination: GENERAL:Normal, HEENT:Normal, NECK:Normal, LUNGS:Normal, CVS:Normal, ABDOMEN:Normal, MSK:Normal, SKIN:Normal Problem List/Assessment/Plan Problems: (1) S/P debridement Assessment and Plan status post debridement and placement of wound vac wound vac sanguineous output patient complaint of pain from left hip wound Plan: Continue with IV antibiotics change wound vac on Monday before discharge 09/18/2024 patient is status post wound debridement of the left hip and wound vac placement patient feeling better, however pain is still not under control, patient woukd like to stay one more day for pain control Plan: possible Discharge tomorrow if pain improves continue IV antibiotics change wound vac prior to discharge Plan discussed with Plan discussed with: Patient Visit Coding Surgery Date of Service if different f: Sep 18, 2024 Billing Provider: KARTIK NEAL MD Surgery Visit Codes: [id number] INP/OBS CARE(HIGH) ALESIA LU [facility] Sep 18, 2024 09:41
--- NOTE | 2024-09-18 10:27 | DVHPN2 ---
Progress Note Date Seen: Sep 18, 2024 Medical Necessity Reason Pt with a Central, PICC or Fol: No Subjective Patient reports: No new complaints Review of Systems: HEENT:Normal, CVS:Normal, RESPIRATORY:Normal, GI:Normal, :Normal, MSK:Normal, NEURO:Normal Objective vital signs Vital Sign Date Time Temp Pulse Resp B/P (MAP) Pulse Ox O2 Delivery O2 Flow Rate FiO2 09/18/24 09:00 97.7 89 20 131/72 (91) 95 97.7 09/18/24 06:16 Nasal Cannula 2.0 09/18/24 06:16 28 Total Intake and Output 09/17/24 09/17/24 09/18/24 15:00 23:00 07:00 Intake Total 50 ml 2200 ml 1000 ml Balance 50 ml 2200 ml 1000 ml medications Current Medications Medications Dose Ordered Sig/Sumanth Route Start Time Stop Time Status Last Admin Dose Admin Nitroglycerin 0.4 mg Q5MINP PRN SL 09/16/24 13:15 Morphine Sulfate 2 mg Q30M PRN IV 09/16/24 13:15 Albuterol 2.5 mg Q6HWA NEB 09/16/24 18:00 09/18/24 06:09 2.5 MG Ipratropium [place] 0.5 mg Q6HWA NEB 09/16/24 18:00 09/18/24 06:09 0.5 MG Pregabalin 150 mg TID PO 09/16/24 14:00 09/18/24 05:33 150 MG Quetiapine Fumarate 400 mg HS PO 09/16/24 22:00 09/17/24 22:50 400 MG Acetaminophen/ Hydrocodone Bitart 1 tab Q6HPRN PRN PO 09/16/24 14:00 09/18/24 07:52 1 TAB Acetaminophen 650 mg Q6HP PRN PO 09/16/24 14:00 Hydromorphone HCl 0.5 mg Q4HPRN PRN IV 09/16/24 14:00 09/18/24 06:09 0.5 MG Pantoprazole Sodium 40 mg DAILY@0600 PO 09/17/24 06:00 09/18/24 05:33 40 MG Ondansetron HCl 4 mg Q6HPRN PRN IV 09/16/24 14:00 09/18/24 06:43 4 MG Ertapenem 1 gm/ Sodium Chloride 50 ml @ 100 mls/hr DAILY IV 09/17/24 10:00 09/17/24 08:43 100 MLS/HR Furosemide 40 mg DAILY PO 09/17/24 10:00 09/17/24 08:45 40 MG Potassium Chloride 16 meq DAILY PO 09/17/24 10:00 09/17/24 08:45 16 MEQ Zolpidem Tartrate 10 mg HSPRN PRN PO 09/16/24 22:00 09/17/24 22:51 10 MG Examination: GENERAL:Normal, HEENT:Normal, NECK:Normal, LUNGS:Normal, CVS:Normal, ABDOMEN:Normal, MSK:Normal, MSK:Abnormal (RIGHT HIP WOUND VAC), SKIN:Normal, NEURO:Normal, :Normal laboratory and microbiology Laboratory Tests 09/17/24 05:37 Test 09/17/24 05:37 Range/Units Serum Glucose 67 L 74-106 mg/dL Microbiology Date/Time Source Procedure Growth Status 09/16/24 20:37 Voided Urine Urine Culture - Preliminary Resulted 09/16/24 11:58 Hip Anaerobic Culture - Preliminary Resulted Problem List/Assessment/Plan Problem List/Assessment/Plan * Chronic obstructive pulmonary disease, for which she will be placed on bronchodilators. * Chronic respiratory failure: on oxygen * Tobacco abuse, for which the patient has been advised to quit. She refuses a nicotine patch. Time spent was 11 minutes. * Chronic diastolic heart failure: on lasix * Hypertension. * Chronic back pain. * Anxiety/depression. * Obesity. * Previous extended-spectrum beta-lactamase Escherichia coli infection in the left hip/urine: iv invanz pending cultures * s/p left hip debridement: wound vac in place advance care planning- full code- time spent 18 mins Plan discussed with: Patient Date of Service: Sep 18, 2024 Billing Provider: FRITZ SUNG MD Common Visit Codes: [id number] INP/OBS CARE(HIGH) FRITZ SUNG MD Sep 18, 2024 10:27
[2024-09-18] MEDS: HYDROcodone-ACET 10/325MG TAB PO PRN (20:21)
[2024-09-19] VITALS (8 sets, daily range): BP systolic 91–134; BP diastolic 54–78; PULSE 52–80; RESP 15–20; TEMP 36.8; O2SAT 91–100
--- NOTE | 2024-09-19 11:12 | DVHDS2 ---
Discharge Summary Date of Admission Sep 16, 2024 at 13:15 Date of Discharge: Sep 19, 2024 Labs/Diagnostic Data: Laboratory Results Test 09/17/24 05:37 09/13/24 11:40 09/13/24 10:27 White Blood Count 8.8 10^3/uL (4.4-10.8) Red Blood Count 3.64 10^6/uL (4.0-5.20) Hemoglobin 11.6 g/dL (12.2-16.2) Hematocrit 35.2 % (36.0-46.0) Mean Corpuscular Volume 96.7 fL (80.0-100.0) Mean Corpuscular Hemoglobin 31.8 pg (28.0-32.0) Mean Corpuscular Hemoglobin Concent 32.9 g/dL (32.0-36.0) Red Cell Distribution Width 13.4 % (11.8-14.3) Platelet Count 241 10^3/uL (140-450) Mean Platelet Volume 8.7 fL (6.9-10.8) Neutrophils (%) (Auto) 54.8 % (37.0-80.0) Lymphocytes (%) (Auto) 34.1 % (10.0-50.0) Monocytes (%) (Auto) 6.8 % (0.0-12.0) Eosinophils (%) (Auto) 3.5 % (0.0-7.0) Basophils (%) (Auto) 0.8 % (0.0-2.0) Neutrophils # (Auto) 4.8 10 ^3/uL (1.6-8.6) Lymphocytes # (Auto) 3.0 10 ^3/uL (0.4-5.4) Monocytes # (Auto) 0.6 10 ^3/uL (0-1.3) Eosinophils # (Auto) 0.3 10 ^3/uL (0-0.8) Basophils # (Auto) 0.1 10 ^3/uL (0-0.2) Nucleated Red Blood Cells 0.3 % Sodium Level 141 mmol/L (136-145) Potassium Level 3.8 mmol/L (3.5-5.1) Chloride Level 108 mmol/L (98-107) Carbon Dioxide Level 25 mmol/L (20-31) Anion Gap 8 (5-15) Blood Urea Nitrogen 9 mg/dL (9-23) Creatinine 0.72 mg/dL (0.550-1.02) Glomerular Filtration Rate Calc 96 mL/min (>90) BUN/Creatinine Ratio 12.5 (10.0-20.0) Serum Glucose 67 mg/dL (74-106) Calcium Level 9.4 mg/dL (8.7-10.4) Total Bilirubin 0.2 mg/dL (0.2-1.0) Aspartate Amino Transferase (AST) 17 U/L (13-40) Alanine Aminotransferase (ALT) 17 U/L (7-40) Alkaline Phosphatase 75 U/L (46-116) Total Protein 5.6 g/dL (5.7-8.2) Albumin 3.7 g/dL (3.2-4.8) Urine Color Light-yellow (Yellow) Urine Clarity Clear (Clear) Urine pH 6.0 (5.0-9.0) Urine Specific [place] 1.007 (1.001-1.035) Urine Protein Negative (Negative) Urine Ketones Negative (Negative) Urine Blood Negative /uL (Negative) Urine Nitrite Negative (Negative) Urine Bilirubin Negative (Negative) Urine Urobilinogen Normal mg/dL (Negative) Urine Leukocyte Esterase Negative /uL (Negative) Urine RBC None seen /hpf (0 - 4) Urine Microscopic WBC < 1 /HPF (0-5) Urine Squamous Epithelial Cells Few /hpf (<5) Urine Bacteria None seen /hpf (None Seen) Urine Glucose Normal mg/dL (Normal) Prothrombin Time 9.8 sec (9.3-11.8) Prothrombin Time INR 0.92 (0.9-1.15) Activated Partial Thromboplast Time 22.8 SEC (24.5-34.5) Other Laboratory Tests 09/17/24 05:37 Brief Hx & Hospital Course: see dictated note Condition at Discharge: Good Final Diagnosis/Problems List right hip surgery Discharge Disposition: Home with Health Services Discharge Instruct/Medications Diet: Cardiac 2g Na,low cholest Activity: No Restrictions, As Tolerated Follow Up/Referral: fu with surgery in 1 wk Medications: resume home meds dc home after wound vac change script to pharmacy Discharge Statement: "Patient was advised to return to the ER or call 911 if any headaches, dizziness, shortness of breath, chest pain, abdominal pain, bleeding, fevers, or worsening of medical condition. Patient was counseled about treatment plan, medications, possible side effects, patientverbalized understanding. All questions were answered to the best of my ability. This discharge took greater then 30 minutes in planning, reviewing documentation, counseling the patient, and discussing with other team members." ASSESSMENT ASSESSMENT Assessment right hip surgery Date of Service: Sep 19, 2024 Billing Provider: FRITZ SUNG MD Common Visit Codes: [id number]-SET/OBS DISCH DAY >30min FRITZ SUNG MD Sep 19, 2024 11:12
[2024-09-19] MEDS ORDERED: CEFD300C2 PO (11:13)
[2024-09-19] MEDS: HYDROmorphone HCL 2 MG/ML VL/or syr IV ONE (11:40)
--- NOTE | 2024-09-19 11:46 | DVHDS ---
DATE OF DISCHARGE: 09/19/2024 HISTORY OF PRESENT ILLNESS: The patient is a 59-year-old lady who was admitted after she underwent debridement of left thigh wound. The patient has previous history of COPD, congestive heart failure, hypertension, sleep apnea and chronic respiratory failure. HOSPITAL COURSE: The patient's wound culture grew E. coli that was sensitive to cefazolin and ceftriaxone. The patient was seen in surgery consult by Nicholas Bhatia. The patient will now be discharged home to resume her home medications as well as to be on cefdinir 300 mg p.o. b.i.d. for 10 days. She will have home health as well as wound VAC for her left thigh wound. FINAL DIAGNOSES: Therefore, * Chronic obstructive pulmonary disease. * Chronic respiratory failure. * Tobacco abuse. * Chronic diastolic heart failure. * Hypertension. * Chronic back pain. * Anxiety/depression. * Obesity. * Status post left hip wound debridement with sepsis. Time spent in discharge planning and review of plan with the patient and nursing and surgery was 39 minutes. MD LAURA Suarez/MAR TID: [id number] RECEIPT: [id number]
== END 2024-09-19 14:40 | disposition home health service (06) | DRG 720 ==
LOC: SUR 08:43 → OVERFLOW 13:15 → TELE-CENTR 14:30 → CENTRAL 09-17 10:34
PROVIDERS: ADMIT Internal Medicine; ATTEND Internal Medicine
PROC: 0JBM0ZZ Excision of Left Upper Leg Subcutaneous Tissue and Fascia, Open Approach (ICD-10-PCS; principal; 2024-09-16 11:20)
DX: A41.9 Sepsis, unspecified organism (principal); J96.10 Chronic respiratory failure, unspecified whether with hypoxia or hypercapnia; I50.32 Chronic diastolic (congestive) heart failure; I11.0 Hypertensive heart disease with heart failure; L02.416 Cutaneous abscess of left lower limb; J44.9 Chronic obstructive pulmonary disease, unspecified; G89.29 Other chronic pain; F41.9 Anxiety disorder, unspecified; W57.XXXA Bitten or stung by nonvenomous insect and other nonvenomous arthropods, initial encounter; F32.A Depression, unspecified; E66.9 Obesity, unspecified; B96.20 Unspecified Escherichia coli [E. coli] as the cause of diseases classified elsewhere; F17.210 Nicotine dependence, cigarettes, uncomplicated; S71.152A Open bite, left thigh, initial encounter; Z88.8 Allergy status to other drugs, medicaments and biological substances; Z88.1 Allergy status to other antibiotic agents; Z86.19 Personal history of other infectious and parasitic diseases; Z68.32 Body mass index [BMI] 32.0-32.9, adult; Y92.89 Other specified places as the place of occurrence of the external cause
CPT/HCPCS: 36415; 80053; 81001; 85025; 85610; 85730; 87070; 87075; 87077; 87086; 87186; 87205; 94640; G0378; J0131; J0690; J1335; J2405; J2704

== ENCOUNTER 2024-10-08 09:41 | Inpatient (IN) | payer MEDICAID ==
[~2024-10-08] VITALS: Ht 172.7 cm; Wt 89.0 kg
[~2024-10-08 09:41] MED LIST changes: +CEFD300C2 PO
--- NOTE | 2024-10-08 10:14 | ED.PDOC ---
Altered Mental Status HPI Comments 59 year old female BIBA and accompanied by daughter presents to the ED with chief complaint of ALOC. Daughter reports that the patient had been noted this morning to be unresponsive and unable to wake up. Daughter relays that the patient had similar altered mental status in the past due to a high ammonia level and severe UTI. Daughter states that the patient has not been breathing well since being found altered. Daughter notes patient's last known normal was yesterday where she only appeared to be a bit tired. Daughter reports patient has a wound vac to her left leg due to a spider bite that continues to be reinfected. Patient unable to answer questions at this time. Chief Complaint: ALOC Time Seen by MD: 10:08 Primary Care Provider: FRANCISCO J Reviewed Notes: Nurses Notes, Sales Attendant Building Materials Notes, Medications, Allergies Allergies: Coded Allergies: Influenza Vaccines (Unverified Allergy, Severe, hypotension/coma, 09/13/24) Pneumococcal Vaccines (Unverified Allergy, Severe, hypotension/coma, 09/13/24) Codeine (Unverified Allergy, Intermediate, itchy, 09/13/24) Home Meds Active Scripts Cefdinir (Cefdinir) 300 Mg Cap, 300 MG PO BID for 10 Days, #20 CAP Prov:FRITZ SUNG MD 09/19/24 Lactulose (Lactulose) 10 Gm/15 Ml [place], 10 GM PO BID for 30 Days, #4500 ML Prov:HANNAH MEJIAS RESIDENT 08/22/24 Spironolactone (Aldactone) 25 Mg Tab, 25 MG PO BIDD, #60 TAB Prov:MELISSA MCNALLY MD 07/11/22 Ipratropium [place] (Ipratropium [place]) 0.02 % [place], 0.5 MG NEB Q6HPRN PRN, #30 ML Prov:MELISSA MCNALLY MD 07/11/22 Reported Medications Albuterol Sulfate (Albuterol Sulfate) 2 Mg Tab, 2.5 MG INH PRN, MG 09/13/24 Evolocumab (Repatha) 140 Mg/Ml Inj, 140 MG SC, INJ 09/13/24 Omeprazole (Gnp Omeprazole) 20 Mg Tab, 40 MG PO DAILY, TAB 09/13/24 Ascorbic Acid (VITAMIN C TABLET) 500 Mg Tb, 250 MG PO DAILY, TAB 09/13/24 Yeast (S. Boulardii)(S. Cerevi (Probiotic) Unknown Strength Cap, PO, CAP 09/13/24 Mannose (D-Mannose) 500 Mg Cap, 1300 MG PO DAILY, CAP 09/13/24 [place]-3 Fatty Acids (FISH OIL) 1,000 Mg Cap, 1000 MG PO, CAP 09/13/24 Multiple Vitamins W/ Minerals (Bariatric Multivitamins/I) 1 Cap Cap, 1 CAP PO, CAP 09/13/24 Potassium Chloride (POTASSIUM CHLORIDE CR) 10 Meq Tb, 10 MEQ PO DAILY, TAB 09/13/24 Aspirin (Aspir-Low) 81 Mg Tab, 81 MG PO DAILY for 30 Days, MG 09/13/24 Adiiukvmwl-Xqnloqasqriblj-Jgot (Breztri Aerosphere 160-9-4.8 Mcg/Act) 1 Aer Aer, 1 AER IN PRN, AER 09/13/24 Carvedilol (Coreg) 6.25 Mg Tab, 6.25 MG PO BID, TAB 09/13/24 Hydrocodone-Acetaminophen (Hydrocodone Bitartrate/AC 5-325 mg) 1 Tab Tab, 1 TAB PO, TAB 09/13/24 Folic Acid (Folic Acid) 1 Mg Tab, 1 TAB PO DAILY for 30 Days, #30 05/30/24 Cholecalciferol (Vitamin D-3) 5,000 Unit Cap, 1 CAP PO DAILY for 90 Days, #90 05/30/24 Gabapentin (Gabapentin) 400 Mg Cap, 1 CAP PO QID for 30 Days, #120 03/20/24 Quetiapine Fumerate (QUETIAPINE FUMARATE) 400 Mg Tab, 1 TAB PO HS 03/20/24 Pregabalin (Pregabalin) 150 Mg Cap, 1 CAP PO TID for 30 Days, #90 03/20/24 Furosemide (Furosemide) 40 Mg Tab, 1 TAB PO BID 03/20/24 Information Source: Patient, Relative (Daughter), Emergency Med Personnel Mode of Arrival: EMS Severity: Severe, Unresponsive Timing: Hours Duration: Since onset Prehospital treatment: None Quality: Decreased Alertness, Change in Behavior Past Medical History PAST MEDICAL HISTORY: Angina, Anxiety, CHF, COPD, Depression, High Lipids, HTN Surgical History: Cholecystectomy, , Tonsillectomy SEGMENTAL PAVING SUPERVISOR History: No Pertinent SEGMENTAL PAVING SUPERVISOR History Family History Family History: Family hx of Cancer, Family hx of heart pedro pablo, Family hx of HTN Family History (Other): CHF Social History Smoker: Cigarettes Alcohol: Denies ETOH Use Drugs: Denies Drug Use Lives In: Home Unable to Obtain due to: Altered Mental Status All Other Systems: Reviewed and Negative Physical Exam General Appearance: Moderate Distress, Normal HEENT: Normal ENT Inspection, PERRL/EOMI Neck: Full Range of Motion, Non-Tender, Normal, Normal Inspection Respiratory: Accessory Muscle Use, Chest Non-Tender, Respiratory Distress, Other (Coarse breath sounds) Cardiovascular: No Edema, No JVD, No Murmur, No Gallop, Normal Peripheral Pulses, Regular Rate/Rhythm Breast Exam: Deferred Gastrointestinal: No Organomegaly, Non Tender, No Pulsatile Mass, Normal Bowel Sounds, Soft Genitalia: Deferred Pelvic: Deferred Rectal: Deferred Extremities: No calf tenderness, Normal capillary refill, Non-tender, No pedal edema Musculoskeletal : Apperance: Normal Neurologic: hosting engineer II-XII nml as Tested, Disoriented, No Motor Deficits, No Sensory Deficits Cerebellar Function: NOT DONE Reflexes: NOT DONE Skin: Dry, Normal Color, Warm Peripheral Pulses: 3+ Radial (R), 3+ Radial (L) Lymphatic: No Adenopathy Was a procedure done? Was a procedure done?: No Differential Diagnosis (ALOC) Differential Diagnosis: Encephalopathy, Sepsis X-Ray, Labs, Meds, VS Vital Signs Date Time Temp Pulse Resp B/P (MAP) Pulse Ox O2 Delivery O2 Flow Rate FiO2 10/08/24 12:52 97.8 86 19 113/68 (83) 97.8 10/08/24 12:39 20 92 Nasal Cannula* 4 36 10/08/24 11:00 82 16 91/62 (72) 93 10/08/24 09:48 85 10/08/24 09:44 98.4 82 14 118/74 (89) 92 98.4 Lab Test 10/08/24 10:30 10/08/24 10:26 Range/Units White Blood Count 13.3 H 4.4-10.8 10^3/uL Red Blood Count 4.66 4.0-5.20 10^6/uL Hemoglobin 15.1 12.2-16.2 g/dL Hematocrit 44.9 36.0-46.0 % Mean Corpuscular Volume 96.4 80.0-100.0 fL Mean Corpuscular Hemoglobin 32.3 H 28.0-32.0 pg Mean Corpuscular Hemoglobin Concent 33.5 32.0-36.0 g/dL Red Cell Distribution Width 14.2 11.8-14.3 % Platelet Count 232 140-450 10^3/uL Mean Platelet Volume 9.1 6.9-10.8 fL Neutrophils (%) (Auto) 86.4 H 37.0-80.0 % Lymphocytes (%) (Auto) 6.1 L 10.0-50.0 % Monocytes (%) (Auto) 6.3 0.0-12.0 % Eosinophils (%) (Auto) 0.8 0.0-7.0 % Basophils (%) (Auto) 0.4 0.0-2.0 % Neutrophils # (Auto) 11.5 H 1.6-8.6 10 ^3/uL Lymphocytes # (Auto) 0.8 0.4-5.4 10 ^3/uL Monocytes # (Auto) 0.8 0-1.3 10 ^3/uL Eosinophils # (Auto) 0.1 0-0.8 10 ^3/uL Basophils # (Auto) 0.1 0-0.2 10 ^3/uL Nucleated Red Blood Cells 0.1 % Sodium Level 148 H 136-145 mmol/L Potassium Level 3.9 3.5-5.1 mmol/L Chloride Level 114 H 98-107 mmol/L Carbon Dioxide Level 26 20-31 mmol/L Anion Gap 8 5-15 Blood Urea Nitrogen 26 H 9-23 mg/dL Creatinine 1.16 H 0.550-1.02 mg/dL Glomerular Filtration Rate Calc 54 >90 mL/min BUN/Creatinine Ratio 22.4 H 10.0-20.0 Serum Glucose 110 H 74-106 mg/dL Lactic Acid Level 1.1 0.4-2.0 mmol/L Calcium Level 9.8 8.7-10.4 mg/dL Total Bilirubin 0.2 0.2-1.0 mg/dL Aspartate Amino Transferase (AST) 33 13-40 U/L Alanine Aminotransferase (ALT) 26 7-40 U/L Alkaline Phosphatase 109 46-116 U/L Ammonia < 10 L 11-32 umol/L Troponin I High Sensitivity 6 </=34 ng/L B-Type Natriuretic Peptide 171.18 0-100 pg/mL Total Protein 6.7 5.7-8.2 g/dL Albumin 4.6 3.2-4.8 g/dL Urine Color Colorless Yellow Urine Clarity Turbid H Clear Urine pH 6.0 5.0-9.0 Urine Specific [place] 1.014 1.001-1.035 Urine Protein Trace H Negative Urine Ketones Negative Negative Urine Blood 1+ H Negative /uL Urine Nitrite 2+ H Negative Urine Bilirubin Negative Negative Urine Urobilinogen Normal Negative mg/dL Urine Leukocyte Esterase 3+ Negative /uL Urine RBC 12 0 - 4 /hpf Urine Microscopic WBC 1494 H 0-5 /HPF Urine Squamous Epithelial Cells None seen <5 /hpf Urine Bacteria Few H None Seen /hpf Urine Glucose Normal Normal mg/dL Current Medications Medications (Trade) Dose Ordered Sig/Sumanth Route Start Time Stop Time Status Last Admin Ceftriaxone Sodium 50 ml @ 100 mls/hr ONCE ONCE IV 10/08/24 10:15 10/08/24 10:44 DC 10/08/24 10:36 Clindamycin Phosphate 50 ml @ 50 mls/hr ONCE ONCE IV 10/08/24 10:15 10/08/24 11:14 DC 10/08/24 10:36 Sodium Chloride 1,000 ml @ 1,000 mls/hr Q1H ONCE IV 10/08/24 11:45 10/08/24 12:44 DC 10/08/24 12:08 Chest XR: FINDINGS: Lines and Tubes: None Lungs: Right lung volume loss with near complete opacification of the right hemithorax. Pleura: Small right pleural effusion. No pneumothorax. Cardiomediastinal contours: Unremarkable Bones: No acute osseous abnormality. IMPRESSION: Right lung volume loss with near complete opacification of the right hemithorax. Small right pleural effusion Patient disoriented. Difficult to arouse. Ammonia level within normal limits. She does take pain medication. Was given Narcan. Possible sepsis from urine. Was given Rocephin. Possible aspiration pneumonia. Was given clindamycin. Establish intravenous access. Was given fluids. BNP elevated. WBC elevated. Reviewed her history. Explained to the family. Continue monitoring. Time of 1ST Reevaluation: 11:08 Reevaluation 1ST: Unchanged Patient Education/Counseling: Diagnosis, Treatment Family Education/Counseling: Diagnosis, Treatment Additional Information Previous visit documents reviewed: 08/20/24 for encephalopathy The following tests were ordered, and results were reviewed by me: EKG Additional Information was gathered from interviewing the following independent historians: Daughter I reviewed and agreed with the following test results read by other providers: None I discussed treatment and results with medical personnel and: Patient and daughter Departure 1 Departure Time of Disposition: 13:18 Impression: Primary Impression: Metabolic encephalopathy Additional Impression: Sepsis due to urinary tract infection Disposition: ADMITTED INPATIENT Admit to: Med Surg Condition: Guarded Critical Care Note Critical Care Time?: Yes Stability Stability form required: No Heart Score Heart Score: Heart Score Response (Comments) Value History Highly Suspicious 2 EKG Normal 0 Age 45-64 1 Risk Factors >3 or Hx ASHD 2 Troponin Normal limit 0 Total 5 I personally scribed for JESSICA SALAS MD ([email or web address]) on 10/08/24 at 10:13. Electronically submitted by Yonatan Albright ([email or web address]). I personally scribed for JESSICA SALAS MD ([email or web address]) on 10/08/24 at 11:44. Electronically submitted by Yonatan Albright ([email or web address]). JESSICA SALAS MD Oct 08, 2024 10:13
[2024-10-08] MEDS: CLINDAMYCIN 600MG IV 50 ML IV ONE (10:36)
[2024-10-08] MEDS: cefTRIAXone 1GM/50ML D5W 50 ML IV ONE (10:36)
[2024-10-08 10:42] LABS: Basophils # (auto) 0.1 10 ^3/uL (0-0.2); Basophils % (auto) 0.4 % (0.0-2.0); Eosinophils # (auto) 0.1 10 ^3/uL (0-0.8); Eosinophils % (auto) 0.8 % (0.0-7.0); Hematocrit 44.9 % (36.0-46.0); Hemoglobin 15.1 g/dL (12.2-16.2); Lymphocytes # (auto) 0.8 10 ^3/uL (0.4-5.4); Lymphocytes % (auto) 6.1 % (10.0-50.0); Mean Corpuscular Hemoglobin 32.3 pg (28.0-32.0); Mean Corpuscular Hgb Conc. 33.5 g/dL (32.0-36.0); Mean Corpuscular Volume 96.4 fL (80.0-100.0); Monocytes # (auto) 0.8 10 ^3/uL (0-1.3); Monocytes % (auto) 6.3 % (0.0-12.0); Neutrophils # (auto) 11.5 10 ^3/uL (1.6-8.6); Neutrophils % (auto) 86.4 % (37.0-80.0); Nucleated Red Blood Cells % 0.1 %; Platelet Count (auto) 232 10^3/uL (140-450); Red Blood Cells 4.66 10^6/uL (4.0-5.20); Red Cell Distribution Width 14.2 % (11.8-14.3); White Blood Cell 13.3 10^3/uL (4.4-10.8)
[2024-10-08 10:46] LABS: Urine Bacteria FEW /hpf (None Seen); Urine Blood 1+ /uL (Negative); Urine Clarity Turbid (Clear); Urine Color Colorless (Yellow); Urine Protein, UAD TRACE (Negative); Urine Specific Gravity 1.014 (1.001-1.035); Urine Squamous Epithelial Cell None Seen /hpf (<5); Urine Urobilinogen Normal (Negative); Urine WBC 1494 /HPF (0-5)
[2024-10-08 11:00] LABS: Alanine Aminotransferase 26 U/L (7-40); Albumin 4.6 g/dL (3.2-4.8); Alkaline Phosphatase 109 U/L (46-116); Anion Gap 8 (5-15); Aspartate Aminotransferase 33 U/L (13-40); BUN/Creatinine Ratio 22.4 (10.0-20.0); Calcium 9.8 mg/dL (8.7-10.4); Carbon Dioxide 26 mmol/L (20-31); Potassium 3.9 mmol/L (3.5-5.1); Total Protein 6.7 g/dL (5.7-8.2)
[2024-10-08 11:05] LABS: Bilirubin, Total 0.2 mg/dL (0.2-1.0); Blood Urea Nitrogen 26 mg/dL (9-23); Chloride 114 mmol/L (98-107); Glucose 110 mg/dL (74-106); Sodium 148 mmol/L (136-145)
--- NOTE | 2024-10-08 11:12 | DVH ---
EXAM: XY CHEST PORTABLE Indication: sob Technique: Single frontal view of the chest was obtained Comparison: XY CHEST PORTABLE on DOS: 08/20/24, XY CHEST PORTABLE on DOS: 06/23/24, XY CHEST PORTABLE o n DOS: 06/20/24, XY CHEST PORTABLE on DOS: 06/18/24, XY CHEST XRAY 1 VIEW on DOS: 05/24/24 FINDINGS: Lines and Tubes: None Lungs: Right lung volume loss with near complete opacification of the right hemithorax. Pleura: Small right pleural effusion. No pneumothorax. Cardiomediastinal contours: Unremarkable Bones: No acute osseous abnormality. IMPRESSION: Right lung volume loss with near complete opacification of the right hemithorax. Small right pleural effusion.
[2024-10-08] MEDS: SODIUM CHLORIDE 0.9% 1,000 ML IV ONE ×2 (12:08→13:04)
[2024-10-08 12:39] VITALS: RESP 20; O2SAT 92
[2024-10-08] MEDS ORDERED: ALBUTEROL SULF 2.5 MG/0.5ML(0.5%) NEB SOLN NEB PRN (13:30)
[2024-10-08] MEDS ORDERED: ONDANSETRON HCL 4 MG/2 ML VIAL IV PRN (13:30)
[2024-10-08] MEDS ORDERED: ACETAMINOPHEN 325 MG TAB PO PRN (13:30)
[2024-10-08] MEDS ORDERED: DOCUSATE SOD 100 MG CAP PO PRN (13:30)
[2024-10-08 13:52] VITALS: BP 113/68; PULSE 86; RESP 19; TEMP 97.8; O2SAT 92
[2024-10-08] MEDS: GABAPENTIN 400 MG CAP PO SCH (14:00)
[2024-10-08] MEDS: SODIUM CHLOR 0.9% PF (SALINE LOCK) 10ML VIAL/SYR IV SCH (14:13)
[2024-10-08] MEDS: FUROSEMIDE 40 MG/4 ML VIAL IV ONE (14:14)
[2024-10-08 14:15] VITALS: O2SAT 92
--- NOTE | 2024-10-08 14:31 | DVH ---
CT BRAIN WITHOUT CONTRAST HISTORY: altered TECHNIQUE: Axial scans were obtained from the skull base through the vertex without contrast. Sagitta l and coronal reformats were generated. One or more of the following radiation dose reduction techniq ues were used for this examination: automated exposure control, adjustment of the mA and/or kV accord ing to patient size, use of iterative reconstruction technique. COMPARISON: CT HEAD WITHOUT CONTRAST on DOS: 08/20/24 FINDINGS: No acute intracranial hemorrhage or evidence of large vessel territorial infarction identified at thi s time. No midline shift. The basilar cisterns are patent. The visualized paranasal sinuses and mastoid air cells are clear. No grossly displaced calvarial abno rmalities identified. IMPRESSION: No acute intracranial findings. HS:Y
[2024-10-08] MEDS ORDERED: NITROGLYCERIN 0.4 MG SL TAB SL PRN (16:30)
--- NOTE | 2024-10-08 16:31 | DVHHP2 ---
History of Present Illness Reason for Visit: Metabolic encephalopathy History of Present Illness The patient is a 59-year-old female with multiple past medical history including anxiety, CHF, COPD, and hypertension who presented to [facility] ED for evaluation of altered level of consciousness. As reported by daughter, patient has been noted this morning to be unresponsive, unable to wake up as usual, altered mental status, shortness of breaths, getting worse that prompted this visit. Daughter notes patient's last known normal was yesterday where she only appeared to be a bit tired, reports that she has a wound vac to her left leg due to a spider bite that continues to be reinfected. Patient was seen and evaluated in the ED, laboratory data shows WBC 13.3, platelets 232, sodium 148, potassium 3.9, BUN 26, creatinine 1.16, GFR 54, glucose 110, BNP 171.18, troponin 6, urinalysis positive for urinary tract infection. Patient was started on IV antibiotic regimen clindamycin, IV Rocephin, please see medication orders section in the computer. On my assessment, daughter at bedside, patient denied chest pain, no headache, no dizziness, currently on oxygen, no abdominal pain, no diarrhea, no nausea, no vomiting, no fever, no chills. Patient was admitted for further evaluation and medical management. Past Medical History Angina, Anxiety, CHF, COPD, Depression, High Lipids, HTN Past Surgical History Cholecystectomy, , Tonsillectomy Family History Reviewed, noncontributory to the management of this case. Past Social History The patient lives at home, denies smoking, alcohol or illicit drugs abuse. Review of Systems Constitutional: Yes: Weakness; No: Fever, Chills, Sweats, Malaise, Other Eyes: No: Pain, Vision change, Conjunctivae inflammation, Eyelid inflammation, Other, Redness ENT: No: Ear pain, Ear discharge, Nose pain, Nose discharge, Nose congestion, Mouth pain, Mouth swelling, Throat pain, Throat swelling, Other Respiratory: Shortness of breath; No: Cough, Dry, SOB with excertion, Wheezing, Hemoptysis, Pleuritic Pain, Sputum, Wheezing, Other Cardiovascular: No: Chest Pain, Palpitations, Orthopnea, Paroxysmal Noc. Dyspnea, Edema, Lt Headedness, Other Gastrointestinal: No: Nausea, Vomiting, Abdominal Pain, Diarrhea, Constipation, Melena, Hematochezia, Other Genitourinary: No Dysuria, No Frequency, No Incontinence, No Hematuria, No Retention, No Other Musculoskeletal: No: other, neck pain, shoulder pain, arm pain, back pain, hand pain, leg pain, foot pain Skin: Other (Left leg wound VAC); No: Rash, Lesions, Jaundice, Bruising Neurological: Other (Altered level of consciousness); No: Weakness, Numbness, Incoordination, Change in speech, Confusion, Seizures Allergies: Coded Allergies: Influenza Vaccines (Unverified Allergy, Severe, hypotension/coma, 09/13/24) Pneumococcal Vaccines (Unverified Allergy, Severe, hypotension/coma, 09/13/24) Codeine (Unverified Allergy, Intermediate, itchy, 09/13/24) Medications Current Medications Medications Dose Ordered Sig/Sumanth Route Start Time Stop Time Status Last Admin Dose Admin Ceftriaxone Sodium 50 ml @ 100 mls/hr DAILY@09 IV 10/09/24 09:00 Aspirin 81 mg DAILY PO 10/09/24 10:00 Carvedilol 6.25 mg Q12HR PO 10/08/24 22:00 Furosemide 40 mg DAILY IV 10/09/24 10:00 Famotidine 20 mg Q12HR IV 10/08/24 22:00 Gabapentin 400 mg TID PO 10/08/24 14:00 Albuterol 2.5 mg Q4HPRN PRN NEB 10/08/24 13:30 Sodium Chloride 10 ml Q8HR IV 10/08/24 14:00 10/08/24 14:13 10 ML Ondansetron HCl 4 mg Q4HP PRN IV 10/08/24 13:30 Docusate Sodium 100 mg BIDPRN PRN PO 10/08/24 13:30 Acetaminophen 650 mg Q6HP PRN PO 10/08/24 13:30 Multivitamins 1 tab DAILY PO 10/09/24 10:00 Exam Vital Signs Vital Signs Date Time Temp Pulse Resp B/P (MAP) Pulse Ox O2 Delivery O2 Flow Rate FiO2 10/08/24 16:00 90 18 122/61 (81) 94 10/08/24 14:15 Nasal Cannula 4.0 10/08/24 14:15 36 10/08/24 13:52 97.8 97.8 General Appearance: Alert, Cooperative, No acute distress, Other (Oriented x2) HEENT: Atraumatic, PERRLA, EOMI, Mucous membr. moist/pink Respiratory: Normal air movement Cardiovascular: Regular rate, Normal S1, Normal S2, No murmurs Abdominal: Normal bowel sounds, Soft, No tenderness, No hepatospenomegaly, No masses Extremities: No clubbing, No cyanosis, No edema, Normal pulses, No tenderness/swelling Skin: No rashes, No significant lesion Neuro: Normal speech, Normal tone, Sensation intact, Cranial nerves 3-12 NL, Reflexes 2+, Other (Generalized weakness) Psych/Mental Status: Mood NL, Other (Altered mental status) Labs/Xrays Labs Test 10/08/24 10:30 10/08/24 10:26 Range/Units White Blood Count 13.3 H 4.4-10.8 10^3/uL Red Blood Count 4.66 4.0-5.20 10^6/uL Hemoglobin 15.1 12.2-16.2 g/dL Hematocrit 44.9 36.0-46.0 % Mean Corpuscular Volume 96.4 80.0-100.0 fL Mean Corpuscular Hemoglobin 32.3 H 28.0-32.0 pg Mean Corpuscular Hemoglobin Concent 33.5 32.0-36.0 g/dL Red Cell Distribution Width 14.2 11.8-14.3 % Platelet Count 232 140-450 10^3/uL Mean Platelet Volume 9.1 6.9-10.8 fL Neutrophils (%) (Auto) 86.4 H 37.0-80.0 % Lymphocytes (%) (Auto) 6.1 L 10.0-50.0 % Monocytes (%) (Auto) 6.3 0.0-12.0 % Eosinophils (%) (Auto) 0.8 0.0-7.0 % Basophils (%) (Auto) 0.4 0.0-2.0 % Neutrophils # (Auto) 11.5 H 1.6-8.6 10 ^3/uL Lymphocytes # (Auto) 0.8 0.4-5.4 10 ^3/uL Monocytes # (Auto) 0.8 0-1.3 10 ^3/uL Eosinophils # (Auto) 0.1 0-0.8 10 ^3/uL Basophils # (Auto) 0.1 0-0.2 10 ^3/uL Nucleated Red Blood Cells 0.1 % Sodium Level 148 H 136-145 mmol/L Potassium Level 3.9 3.5-5.1 mmol/L Chloride Level 114 H 98-107 mmol/L Carbon Dioxide Level 26 20-31 mmol/L Anion Gap 8 5-15 Blood Urea Nitrogen 26 H 9-23 mg/dL Creatinine 1.16 H 0.550-1.02 mg/dL Glomerular Filtration Rate Calc 54 >90 mL/min BUN/Creatinine Ratio 22.4 H 10.0-20.0 Serum Glucose 110 H 74-106 mg/dL Lactic Acid Level 1.1 0.4-2.0 mmol/L Calcium Level 9.8 8.7-10.4 mg/dL Total Bilirubin 0.2 0.2-1.0 mg/dL Aspartate Amino Transferase (AST) 33 13-40 U/L Alanine Aminotransferase (ALT) 26 7-40 U/L Alkaline Phosphatase 109 46-116 U/L Ammonia < 10 L 11-32 umol/L Troponin I High Sensitivity 6 </=34 ng/L B-Type Natriuretic Peptide 171.18 0-100 pg/mL Total Protein 6.7 5.7-8.2 g/dL Albumin 4.6 3.2-4.8 g/dL Urine Color Colorless Yellow Urine Clarity Turbid H Clear Urine pH 6.0 5.0-9.0 Urine Specific [place] 1.014 1.001-1.035 Urine Protein Trace H Negative Urine Ketones Negative Negative Urine Blood 1+ H Negative /uL Urine Nitrite 2+ H Negative Urine Bilirubin Negative Negative Urine Urobilinogen Normal Negative mg/dL Urine Leukocyte Esterase 3+ Negative /uL Urine RBC 12 0 - 4 /hpf Urine Microscopic WBC 1494 H 0-5 /HPF Urine Squamous Epithelial Cells None seen <5 /hpf Urine Bacteria Few H None Seen /hpf Urine Glucose Normal Normal mg/dL [id number] UNIT: [id number] : 1965 LOC: ER ROOM / BED: / AGE / SEX: 59 / F ADM STATUS: REG ER SERVICE [id number] ORDERING PHYSICIAN: JESSICA SALAS MD PROCEDURE(s): HWOCT - HEAD WITHOUT CONTRAST REASON: altered ORDER NUMBER(s): [id number], ACCESSION NUMBER(s): [id number] CT BRAIN WITHOUT CONTRAST HISTORY: altered TECHNIQUE: Axial scans were obtained from the skull base through the vertex without contrast. Sagittal and coronal reformats were generated. One or more of the following radiation dose reduction techniques were used for this examina tion: automated exposure control, adjustment of the mA and/or kV according to patient size, use of iterative reconstruction technique. COMPARISON: CT HEAD WITHOUT CONTRAST on DOS: 08/20/24 FINDINGS: No acute intracranial hemorrhage or evidence of large vessel territorial infarction identified at this time. No midline shift. The basilar cisterns are patent. The visualized paranasal sinuses and mastoid air cells are clear. No grossly displaced calvarial abnormalities identified. IMPRESSION: No acute intracranial findings. ORDERING PHYSICIAN: JESSICA SALAS MD PROCEDURE(s): CXRP - CHEST PORTABLE REASON: sob ORDER NUMBER(s): [id number], ACCESSION NUMBER(s): [id number] EXAM: XY CHEST PORTABLE Indication: sob Technique: Single frontal view of the chest was obtained Comparison: XY CHEST PORTABLE on DOS: 08/20/24, XY CHEST PORTABLE on DOS: 06/23/24, XY CHEST PORTABLE on DOS: 06/20/24, XY CHEST PORTABLE on DOS: 06/18/24, XY CHEST XRAY 1 VIEW on DOS: 05/24/24 FINDINGS: Lines and Tubes: None Lungs: Right lung volume loss with near complete opacification of the right hemithorax. Pleura: Small right pleural effusion. No pneumothorax. Cardiomediastinal contours: Unremarkable Bones: No acute osseous abnormality. IMPRESSION: Right lung volume loss with near complete opacification of the right hemithorax. Small right pleural effusion. Assessment/Plan Assessment/Plan Metabolic encephalopathy Urinary tract infection Generalized weakness Leukocytosis, unspecified Encounter for management of wound VAC Plan 1. Admit to telemetry unit 2. Breathing treatment 3. Pain control management 4. IV antibiotic management 5. Management of fluids and electrolytes 6. Consultation for hospitalist/wound care 7. Diagnostic test head CT 8. DVT prophylaxis on aspirin 9. Repeat labs CBC, CMP in a.m. 10. Home medication reviewed and reconciled 11. Continue with current medical management 12. Treatment plan discussed with patient and RN. Patient/daughter verbalized understanding. Plan discussed with: Patient, Daughter (At bedside), Other (RN) My Orders Orders - JACE LANCE DNP Procedure Category Date Status Time Ceftriaxone 1gm/50ml PHA 10/09/24 In Process D5w (Rocephin) 09:00 Aspirin Tablet PHA 10/09/24 In Process 10:00 Carvedilol Tablet PHA 10/08/24 In Process (Coreg Tablet) 22:00 Famotidine Injection PHA 10/08/24 In Process (Pepcid Injection) 22:00 Gabapentin Capsule PHA 10/08/24 In Process (Neurontin Capsule) 14:00 Albuterol Medneb PHA 10/08/24 In Process (Ventolin Medneb) 13:30 Allergies MARCI 10/08/24 In Process 13:21 Code Status CODE 10/08/24 Transmitted 13:21 Sodium Chloride Lock PHA 10/08/24 In Process (Saline Lock Ns) 14:00 Oxygen Per Hour RT 10/08/24 Transmitted 13:21 Ondansetron Hcl PHA 10/08/24 In Process (Zofran) 13:30 Docusate Sodium PHA 10/08/24 In Process Capsule (Colace 13:30 Complete Blood Count LAB 10/09/24 Verified 04:00 Comprehensive LAB 10/09/24 Verified Metabolic Panel 04:00 Cardiac DIET 10/08/24 Transmitted Diet-2gna,Lofat,Lochol Lunch Condition: Serious MARCI 10/08/24 In Process 13:21 Acetaminophen Tablet PHA 10/08/24 In Process (Tylenol Tablet) 13:30 Bedrest With Bathroom MARCI 10/08/24 In Process Privileg 13:21 Sequential MARCI 10/08/24 In Process Compression Device Furosemide Injection PHA 10/09/24 In Process (Lasix Injection) 10:00 Multiple Vitamin PHA 10/09/24 In Process Tablet (Mvi Tab) 10:00 Problem List: (1) Metabolic encephalopathy (2) Leukocytosis, unspecified (3) Generalized weakness (4) UTI (urinary tract infection) (5) Encounter for management of wound VAC Date of Service: Oct 08, 2024 Billing Provider: JACE LANCE DNP Common Visit Codes: [id number] INP/OBS CARE (HIGH) JACE LANCE DNP Oct 08, 2024 16:31
[2024-10-08] MEDS: MORPHINE SULFATE INJ 2 MG/ml SYRG IV PRN (19:47)
[2024-10-08] MEDS: HYDROcodone-ACET 10/325MG TAB PO PRN (21:36)
[2024-10-08 22:19] VITALS: O2SAT 93
[2024-10-08] MEDS: CLINDAMYCIN 600MG IV 50 ML IV SCH (22:30)
[2024-10-08] MEDS: FAMOTIDINE (10MG/ML) 2ML VL IV SCH (22:42)
[2024-10-08] MEDS: CARVEDILOL 3.125 MG TAB PO SCH (22:42)
[2024-10-09 01:43] VITALS: PULSE 93; RESP 20; O2SAT 95
[2024-10-09 05:17] LABS: Basophils # (auto) 0.1 10 ^3/uL (0-0.2); Basophils % (auto) 0.4 % (0.0-2.0); Eosinophils # (auto) 0.1 10 ^3/uL (0-0.8); Eosinophils % (auto) 0.6 % (0.0-7.0); Hematocrit 36.2 % (36.0-46.0); Hemoglobin 12.2 g/dL (12.2-16.2); Lymphocytes # (auto) 1.2 10 ^3/uL (0.4-5.4); Lymphocytes % (auto) 8.9 % (10.0-50.0); Mean Corpuscular Hemoglobin 31.9 pg (28.0-32.0); Mean Corpuscular Hgb Conc. 33.7 g/dL (32.0-36.0); Mean Corpuscular Volume 94.7 fL (80.0-100.0); Monocytes # (auto) 0.9 10 ^3/uL (0-1.3); Monocytes % (auto) 6.7 % (0.0-12.0); Neutrophils # (auto) 11.2 10 ^3/uL (1.6-8.6); Neutrophils % (auto) 83.4 % (37.0-80.0); Platelet Count (auto) 197 10^3/uL (140-450); Red Blood Cells 3.82 10^6/uL (4.0-5.20); Red Cell Distribution Width 13.9 % (11.8-14.3); White Blood Cell 13.4 10^3/uL (4.4-10.8)
[2024-10-09 05:43] VITALS: O2SAT 93
[2024-10-09 05:47] LABS: Alanine Aminotransferase 17 U/L (7-40); Albumin 3.9 g/dL (3.2-4.8); Alkaline Phosphatase 71 U/L (46-116); Anion Gap 9 (5-15); Aspartate Aminotransferase 24 U/L (13-40); BUN/Creatinine Ratio 20.6 (10.0-20.0); Blood Urea Nitrogen 13 mg/dL (9-23); Calcium 9.7 mg/dL (8.7-10.4); Carbon Dioxide 23 mmol/L (20-31); Glucose 102 mg/dL (74-106); Total Protein 6.1 g/dL (5.7-8.2)
[2024-10-09 06:16] LABS: Bilirubin, Total 0.3 mg/dL (0.2-1.0); Chloride 117 mmol/L (98-107); Potassium 2.8 mmol/L (3.5-5.1); Sodium 149 mmol/L (136-145)
[2024-10-09] MEDS: cefTRIAXone 1GM/50ML D5W 50 ML IV SCH (09:14)
--- NOTE | 2024-10-09 10:35 | ECG ---
[facility] Test Date: 2024-10-08 Test Time: 09:48:57 Pat Name: DONA WONG Department: er Room: [address] [place] [address] Gender: F Redevelopment Specialist: rocio : 1965 Requested By: EMERGENCY EMERGENCY Order Number: [id number] Reading MD: Alonzo Herrera Measurements Intervals [place] Rate: 85 P: 64 NC: 191 QRS: 65 QRSD: 111 T: 42 QT: 367 QTc: 437 Interpretive Statements Sinus rhythm Ventricular premature complex LAE, consider biatrial enlargement Anteroseptal infarct, age indeterminate Electronically Signed On 10-09-2024 22:37:40 PDT by Alonzo Herrera Please click the below link to view image of tracing.
[2024-10-09] MEDS: ASPirin 81 mg TAB PO SCH (11:56)
[2024-10-09] MEDS: MULTIPLE VITAMIN TAB PO SCH (11:56)
[2024-10-09] MEDS: FUROSEMIDE 40 MG/4 ML VIAL IV SCH (11:56)
[2024-10-09] MEDS: IOHEXOL 300 MG/ML 100ML BOTTLE IJ ONE (14:20)
[2024-10-09] MEDS ORDERED: VANCOMYCIN PER PHARMACY 0 MG IV SCH (14:30)
--- NOTE | 2024-10-09 15:11 | DVHPN2 ---
Subjective Persistent altered mental status Reviewed: Care Plan, H&P, Labs, Medications Changes from previous H/P or p: No Changes General: Per HPI Eyes: No Pain, No Vision change, No Conjunctivae inflammation, No Eyelid inflammation, No Other, No Redness ENT: No Ear pain, No Ear discharge, No Nose pain, No Nose discharge, No Nose congestion, No Mouth pain, No Mouth swelling, No Throat pain, No Throat swelling, No Other Cardiovascular: No Chest Pain, No Palpitations, No Orthopnea, No Paroxysmal Noc. Dyspnea, No Edema, No Lt Headedness, No Other Respiratory: No Cough, No Dry; Shortness of breath; No SOB with excertion, No Wheezing, No Hemoptysis, No Pleuritic Pain, No Sputum, No Other Gastrointestinal: No Nausea, No Vomiting, No Abdominal Pain, No Diarrhea, No Constipation, No Melena, No Hematochezia, No Other Genitourinary: No Dysuria, No Frequency, No Incontinence, No Hematuria, No Retention, No Other Musculoskeletal: No other, No neck pain, No shoulder pain, No arm pain, No back pain, No hand pain, No leg pain, No foot pain Skin: No Rash, No Lesions, No Jaundice, No Bruising; Other (Left leg wound VAC) Objective Vitals Vital Signs Date Time Temp Pulse Resp B/P (MAP) Pulse Ox O2 Delivery O2 Flow Rate FiO2 10/09/24 11:56 112/67 10/09/24 11:55 89 10/09/24 08:00 98.4 15 94 98.4 10/09/24 08:00 Nasal Cannula* 3 32 Intake/Output Intake and Output 10/09/24 07:00 Intake Total 1150 ml Output Total 2400 ml Balance -1250 ml Intake Oral 0 ml IV Total 1150 ml Output Urine Total 2400 ml General Appearance: Alert, Cooperative, mild distress, Other (Oriented x2) HEENT: Atraumatic, PERRLA Lungs: Clear to auscultation, Normal air movement Cardiovascular: Normal S1, Normal S2 Abdomen: Normal bowel sounds, Soft, No tenderness Genitourinary: No Apparent Abnormalities Musculoskeletal: Normal sensory function, Normal motor function Neuro: Normal speech, Cranial nerves 3-12 NL Psych/Mental Status: Mental status NL, Mood NL Medications Current Medications Medications Dose Ordered Sig/Sumanth Route Start Time Stop Time Status Last Admin Dose Admin Ceftriaxone Sodium 50 ml @ 100 mls/hr DAILY@09 IV 10/09/24 09:00 10/09/24 09:14 100 MLS/HR Aspirin 81 mg DAILY PO 10/09/24 10:00 10/09/24 11:56 81 MG Carvedilol 6.25 mg Q12HR PO 10/08/24 22:00 10/09/24 11:55 6.25 MG Furosemide 40 mg DAILY IV 10/09/24 10:00 10/09/24 11:56 40 MG Famotidine 20 mg Q12HR IV 10/08/24 22:00 10/09/24 11:56 20 MG Gabapentin 400 mg TID PO 10/08/24 14:00 10/09/24 14:20 400 MG Albuterol 2.5 mg Q4HPRN PRN NEB 10/08/24 13:30 Sodium Chloride 10 ml Q8HR IV 10/08/24 14:00 10/09/24 14:20 10 ML Ondansetron HCl 4 mg Q4HP PRN IV 10/08/24 13:30 Docusate Sodium 100 mg BIDPRN PRN PO 10/08/24 13:30 Acetaminophen 650 mg Q6HP PRN PO 10/08/24 13:30 Multivitamins 1 tab DAILY PO 10/09/24 10:00 10/09/24 11:56 1 TAB Nitroglycerin 0.4 mg Q5MINP PRN SL 10/08/24 16:30 Morphine Sulfate 2 mg Q30M PRN IV 10/08/24 16:30 10/08/24 19:47 2 MG Clindamycin Phosphate 50 ml @ 50 mls/hr Q8HR IV 10/08/24 22:00 10/09/24 14:20 50 MLS/HR Acetaminophen/ Hydrocodone Bitart 1 tab Q6HP PRN PO 10/08/24 20:30 10/09/24 12:38 1 TAB Laboratory Results Laboratory Tests 10/09/24 05:04 Chemistry Test 10/09/24 05:04 Albumin 3.9 g/dL (3.2-4.8) Calcium Level 9.7 mg/dL (8.7-10.4) Total Protein 6.1 g/dL (5.7-8.2) LFT Test 10/09/24 05:04 Alanine Aminotransferase (ALT) 17 U/L (7-40) Alkaline Phosphatase 71 U/L (46-116) Aspartate Amino Transferase (AST) 24 U/L (13-40) Total Bilirubin 0.3 mg/dL (0.2-1.0) Urinalysis Test 10/08/24 10:26 Urine Color Colorless (Yellow) Urine Clarity Turbid (Clear) H Urine pH 6.0 (5.0-9.0) Urine Specific [place] 1.014 (1.001-1.035) Urine Protein Trace (Negative) H Urine Ketones Negative (Negative) Urine Blood 1+ /uL (Negative) H Urine Nitrite 2+ (Negative) H Urine Bilirubin Negative (Negative) Urine Urobilinogen Normal mg/dL (Negative) Urine Leukocyte Esterase 3+ /uL (Negative) Urine RBC 12 /hpf (0 - 4) Urine Microscopic WBC 1494 /HPF (0-5) H Urine Squamous Epithelial Cells None seen /hpf (<5) Urine Bacteria Few /hpf (None Seen) H Urine Glucose Normal mg/dL (Normal) Microbiology Microbiology Date/Time Source Procedure Growth Status 10/08/24 11:29 Blood Blood Culture - Preliminary NO GROWTH AFTER 24 HOURS OF INCUBATION. Resulted 10/08/24 10:26 Urine - [place] Urine Culture - Preliminary Resulted Labs and/or images reviewed: Labs reviewed by me, Image(s) reviewed by me Assessment/Plan Assessment/Plan Impression: -acute hypoxic respiratory failure -sepsis -metabolic encephalopathy -pneumonia, probable aspiration etiology -complicated cystitis with Gram-negative rods -left hip abscess? , status post surgery -obesity -primary hypertension -acute on chronic diastolic heart failure Plan: -CT scan of the chest, CT scan of the left femur with IV contrast -change antibiotic therapy to meropenem and vancomycin -IV hydration -potassium replacement -midline placement -wound care consult -wound blood and urine culture -pain management -bronchodilators, Pulmicort -repeat labs in a.m. -discussion made with the patient and daughter was bedside. Total time spent with patient and family regarding advance care plannin minutes. Total time spent with patient discussing and formulating plan of care: 35 minutes. This medical document was created using an electronic medical record system with [employer] dictation system. Although this document has been carefully reviewed, there may still be some phonetic and typographical errors. These areas are purely typographical due to imperfections of the software programs, and do not reflect any compromise in the patient's medical care. Plan discussed with: Patient, Daughter, Other (RN) My Orders Orders - WARNER MOSS NP Procedure Category Date Status Time Ct L Femur With Wo CT 10/09/24 Logged Contrast 15:04 Albuterol Medneb PHA 10/09/24 Verified (Ventolin Medneb) 18:00 Ipratropium Medneb PHA 10/09/24 Verified (Atrovent Medneb) 18:00 Acetylcysteine PHA 10/09/24 Verified Inhalation 10% 18:00 1/2 Ns W Potassium PHA 10/09/24 Verified 40meq 14:30 * Cardiology Consult CONS 10/09/24 Verified 14:22 Meropenem 1gm PHA 10/09/24 Verified Q8h(Gfr>50) 22:00 Vancomycin Per PHA 10/09/24 Verified Pharmacy 14:30 Insert Midline ORDERS 10/09/24 Verified 14:22 Basic Metabolic Panel LAB 10/10/24 Verified 04:00 Complete Blood Count LAB 10/10/24 Verified 04:00 * Wound Consult CONS 10/09/24 Verified Potassium Effervesent PHA 10/09/24 Verified Tab (Klor-Con/Ef) 14:[address] 10/09/24 Verified 14:22 Date of Service: Oct 09, 2024 Billing Provider: WARNER MOSS NP Common Visit Codes: [id number] INP/OBS CARE(HIGH) WARNER MOSS NP Oct 09, 2024 15:11
[2024-10-09] MEDS: POTASSIUM EFFERVESENT TAB 25 MEQ PO ONE (16:03)
[2024-10-09] MEDS: POTASSIUM CHLORIDE 40 MEQ in SOD CHL 0.45% 1,000 ML IV SCH (17:38)
[2024-10-09 18:31] VITALS: PULSE 78; RESP 18; O2SAT 94
[2024-10-09] MEDS: ALBUTEROL SULF 2.5 MG/0.5ML(0.5%) NEB SOLN NEB SCH (18:31)
[2024-10-09] MEDS: IPRATROPIUM BROM 0.5 MG/2.5ML INH SOL NEB SCH (18:31)
[2024-10-09] MEDS: ACETYLCYSTEINE 10 %(100MG/ML) SOL 4ML NEB SCH (18:32)
--- NOTE | 2024-10-09 18:35 | DVH ---
EXAM: CT Chest Without Intravenous Contrast CLINICAL INDICATION: multifocal pna TECHNIQUE: Axial computed tomography images of the chest without intravenous contrast. This CT exam was performed using one or more of the following dose reduction techniques: automated exposure cont rol, adjustment of the mA and/or kV according to patient size, and/or use of iterative reconstruction technique. CONTRAST: COMPARISON: CT CHEST WITHOUT CONTRAST on DOS: 03/20/24 FINDINGS: LUNGS AND PLEURAL SPACES: Linear consolidation along the right major fissure and right lower lobe c ould be atelectasis and/or pneumonia. No significant effusion. HEART: Unremarkable. No cardiomegaly. No significant pericardial effusion. No significant gr ry artery calcifications. MEDIASTINUM: Pleural mediastinal lymph nodes. BONES/JOINTS: Unremarkable. No acute fracture. No dislocation. SOFT TISSUES: Unremarkable. VASCULATURE: Scattered calcified atherosclerotic disease of aorta. No thoracic aortic aneurysm. LYMPH NODES: See above. OTHER FINDINGS: . . IMPRESSION: Linear consolidation along the right major fissure and right lower lobe could be atelectasis and/or pneumonia.
[2024-10-09 18:41] VITALS: PULSE 78; RESP 18; O2SAT 97
--- NOTE | 2024-10-09 19:31 | DVH ---
Procedure: CT CT L FEMUR WITH WO CONTRAST 10/09/2024 03:33 PM Indication: ABCESS FROM SPIDER BITE Comparison Study: None Technique: Axial images left femur were obtained and reformatted in coronal and sagittal planes. All CT scans at this medical facility are performed using dose modulation techniques as appropriate to a performed exam including the following: Automated exposure control was utilized; adjustment of the MA and/or KV according to patient size; and use of iterative reconstruction technique. CT Dose: CTDI vo lume is 24, 19 mGy. Dose-length product is 2230 mGy*cm FINDINGS: Bones: No acute fracture or dislocation. Joint spaces are maintained. No cortical erosion or lytic os seous lesion. Soft tissues: A soft tissue defect is seen in the lateral aspect of the upper thigh at the level of f emoral greater trochanter. No drainable fluid collection is seen. The defect extends to the underly ing tensor fascia naren muscle but does not extend to the underlying bone. Other: A Acevedo catheter is seen in the bladder. Sigmoid diverticulosis noted. IMPRESSION: 1. Large soft tissue defect on the lateral aspect of the upper thigh extending to underlying tensor f ascia naren muscle. No drainable fluid collection. No osseous involvement.
[2024-10-09 20:00] VITALS: PULSE 68; RESP 15; O2SAT 95
[2024-10-09] MEDS: VANCOMYCIN 1.25GM/250ML 250 ML IV SCH (20:41)
[2024-10-09] MEDS: MEROPENEM 1GM IVPB 50 ML IV SCH (22:54)
[2024-10-10] VITALS (10 sets, daily range): BP systolic 125–134; BP diastolic 68–88; PULSE 50–70; RESP 12–20; TEMP 97.7–98.1; O2SAT 94–99
[2024-10-10 04:50] LABS: Basophils # (auto) 0.1 10 ^3/uL (0-0.2); Basophils % (auto) 0.5 % (0.0-2.0); Eosinophils # (auto) 0.2 10 ^3/uL (0-0.8); Hematocrit 38.6 % (36.0-46.0); Hemoglobin 12.7 g/dL (12.2-16.2); Lymphocytes # (auto) 2.2 10 ^3/uL (0.4-5.4); Lymphocytes % (auto) 21.3 % (10.0-50.0); Mean Corpuscular Hemoglobin 31.4 pg (28.0-32.0); Mean Corpuscular Volume 95.3 fL (80.0-100.0); Monocytes # (auto) 0.8 10 ^3/uL (0-1.3); Monocytes % (auto) 7.6 % (0.0-12.0); Neutrophils # (auto) 7.1 10 ^3/uL (1.6-8.6); Neutrophils % (auto) 68.6 % (37.0-80.0); Platelet Count (auto) 220 10^3/uL (140-450); Red Blood Cells 4.05 10^6/uL (4.0-5.20); Red Cell Distribution Width 14.2 % (11.8-14.3); White Blood Cell 10.4 10^3/uL (4.4-10.8)
[2024-10-10 05:00] LABS: Potassium 3.5 mmol/L (3.5-5.1)
[2024-10-10 05:01] LABS: Anion Gap 5 (5-15); Carbon Dioxide 28 mmol/L (20-31)
[2024-10-10 05:02] LABS: Calcium 10.1 mg/dL (8.7-10.4); Chloride 114 mmol/L (98-107); Sodium 147 mmol/L (136-145)
[2024-10-10 05:06] LABS: BUN/Creatinine Ratio 17.6 (10.0-20.0); Blood Urea Nitrogen 12 mg/dL (9-23); Glucose 97 mg/dL (74-106)
--- NOTE | 2024-10-10 11:02 | DVHINCON2 ---
Date of service: Oct 10, 2024 History of Present Illness HPI Patient is a 59 year old female who presented to the hospital with altered mental status. Reportedly, the patient was found to be altered when she woke up yesterday morning. She has been managed in hospital with encephalopathy/sepsis. She was found to have pneumonia and UTI. Cardiology is involved for cardiac hospice of care. It was of note that the patient is on outpatient antibiotic th erapy for left hip wound which is on wound VAC also. She follows with primary (Dr. Barkley) and Infectious Disease as outpatient. Patient denies chest pain/palpitations. She is known to our practice from outside. Home Meds Active Scripts Cefdinir (Cefdinir) 300 Mg Cap, 300 MG PO BID for 10 Days, #20 CAP Prov:FRITZ SUNG MD 09/19/24 Lactulose (Lactulose) 10 Gm/15 Ml Shanique, 10 GM PO BID for 30 Days, #4500 ML Prov:HANNAH MEJIAS 08/22/24 Spironolactone (Aldactone) 25 Mg Tab, 25 MG PO BIDD, #60 TAB Prov:MELISSA MCNALLY MD 07/11/22 Ipratropium [place] (Ipratropium [place]) 0.02 % [place], 0.5 MG NEB Q6HPRN PRN, #30 ML Prov:MELISSA MCNALLY MD 07/11/22 Reported Medications Albuterol Sulfate (Albuterol Sulfate) 2 Mg Tab, 2.5 MG INH PRN, MG 09/13/24 Evolocumab (Repatha) 140 Mg/Ml Inj, 140 MG SC, INJ 09/13/24 Omeprazole (Gnp Omeprazole) 20 Mg Tab, 40 MG PO DAILY, TAB 09/13/24 Ascorbic Acid (VITAMIN C TABLET) 500 Mg Tb, 250 MG PO DAILY, TAB 09/13/24 Yeast (S. Boulardii)(S. Cerevi (Probiotic) Unknown Strength Cap, PO, CAP 09/13/24 Mannose (D-Mannose) 500 Mg Cap, 1300 MG PO DAILY, CAP 09/13/24 [place]-3 Fatty Acids (FISH OIL) 1,000 Mg Cap, 1000 MG PO, CAP 09/13/24 Multiple Vitamins W/ Minerals (Bariatric Multivitamins/I) 1 Cap Cap, 1 CAP PO, CAP 09/13/24 Potassium Chloride (POTASSIUM CHLORIDE CR) 10 Meq Tb, 10 MEQ PO DAILY, TAB 09/13/24 Aspirin (Aspir-Low) 81 Mg Tab, 81 MG PO DAILY for 30 Days, MG 09/13/24 Plpzcmgyha-Jnxfjoloyfwhqb-Qlah (Breztri Aerosphere 160-9-4.8 Mcg/Act) 1 Aer Aer, 1 AER IN PRN, AER 09/13/24 Carvedilol (Coreg) 6.25 Mg Tab, 6.25 MG PO BID, TAB 09/13/24 Hydrocodone-Acetaminophen (Hydrocodone Bitartrate/AC 5-325 mg) 1 Tab Tab, 1 TAB PO, TAB 09/13/24 Folic Acid (Folic Acid) 1 Mg Tab, 1 TAB PO DAILY for 30 Days, #30 05/30/24 Cholecalciferol (Vitamin D-3) 5,000 Unit Cap, 1 CAP PO DAILY for 90 Days, #90 05/30/24 Gabapentin (Gabapentin) 400 Mg Cap, 1 CAP PO QID for 30 Days, #120 03/20/24 Quetiapine Fumerate (QUETIAPINE FUMARATE) 400 Mg Tab, 1 TAB PO HS 03/20/24 Pregabalin (Pregabalin) 150 Mg Cap, 1 CAP PO TID for 30 Days, #90 03/20/24 Furosemide (Furosemide) 40 Mg Tab, 1 TAB PO BID 03/20/24 Past Medical History Others Past medical history includes morbid obesity, status post bariatric surgery and some weight loss, COPD/asthma, obstructive sleep apnea, hypertension, hyperlipidemia, depression, anxiety, kidney stone, gout, active smoker and history of /tonsillectomy/cholecystectomy/Carpal tunnel surgery/ spinal tap. Does have history of spider ulcer with cellulitis on wound VAC in the left upper lateral hip. Patient Family History: Alcoholism G8 BROTHER G8 BROTHER G8 SISTER G8 SISTER Cervical cancer G8 MOTHER, , Age: 64 Chronic obstructive pulmonary disease G8 BROTHER G8 BROTHER G8 SISTER G8 SISTER Depression G8 MOTHER, , Age: 64 Hypertension G8 MOTHER, , Age: 64 G8 BROTHER G8 BROTHER G8 SISTER G8 SISTER Smoker: Positive Alocohol: None Drugs: None Lives with: With family Review of Systems Constitutional: Weakness All Other Systems Fourteen point review of system was performed. Relevant findings as per above and as per HPI. Otherwise negative. H&P Exam Vital Signs Vital Signs Date Time Temp Pulse Resp B/P (MAP) Pulse Ox O2 Delivery O2 Flow Rate FiO2 10/10/24 09:18 50 15 94 Nasal Cannula* 3 32 10/10/24 08:30 98.2 119/71 (87) 98.2 General Appeara: Well developed Eye Exam: bilateral eye PERRL Mouth: Normal Inspection Pulmonary/Respiratory: Rhonci Cardiovascular/Chest: Regular rate, Systolic murmur Peripheral Pulses: 2+ carotid (R), 2+ carotid (L), 2+ femoral (R), 2+ femoral (L) Abdominal Exam: Normal bowel sounds, Soft Neuro/Mental St: Alert, Oriented Appearance: Appropriate appearance Eye contact/ Speech: Cooperative Labs/Xrays Labs Test 10/10/24 04:27 10/09/24 05:04 10/08/24 10:30 10/08/24 10:26 Range/Units White Blood Count 10.4 4.4-10.8 10^3/uL Red Blood Count 4.05 4.0-5.20 10^6/uL Hemoglobin 12.7 12.2-16.2 g/dL Hematocrit 38.6 36.0-46.0 % Mean Corpuscular Volume 95.3 80.0-100.0 fL Mean Corpuscular Hemoglobin 31.4 28.0-32.0 pg Mean Corpuscular Hemoglobin Concent 33.0 32.0-36.0 g/dL Red Cell Distribution Width 14.2 11.8-14.3 % Platelet Count 220 140-450 10^3/uL Mean Platelet Volume 9.2 6.9-10.8 fL Neutrophils (%) (Auto) 68.6 37.0-80.0 % Lymphocytes (%) (Auto) 21.3 10.0-50.0 % Monocytes (%) (Auto) 7.6 0.0-12.0 % Eosinophils (%) (Auto) 2.0 0.0-7.0 % Basophils (%) (Auto) 0.5 0.0-2.0 % Neutrophils # (Auto) 7.1 1.6-8.6 10 ^3/uL Lymphocytes # (Auto) 2.2 0.4-5.4 10 ^3/uL Monocytes # (Auto) 0.8 0-1.3 10 ^3/uL Eosinophils # (Auto) 0.2 0-0.8 10 ^3/uL Basophils # (Auto) 0.1 0-0.2 10 ^3/uL Nucleated Red Blood Cells 0.0 % Sodium Level 147 H 136-145 mmol/L Potassium Level 3.5 3.5-5.1 mmol/L Chloride Level 114 H 98-107 mmol/L Carbon Dioxide Level 28 20-31 mmol/L Anion Gap 5 5-15 Blood Urea Nitrogen 12 9-23 mg/dL Creatinine 0.68 0.550-1.02 mg/dL Glomerular Filtration Rate Calc 100 >90 mL/min BUN/Creatinine Ratio 17.6 10.0-20.0 Serum Glucose 97 74-106 mg/dL Calcium Level 10.1 8.7-10.4 mg/dL Total Bilirubin 0.3 0.2-1.0 mg/dL Aspartate Amino Transferase (AST) 24 13-40 U/L Alanine Aminotransferase (ALT) 17 7-40 U/L Alkaline Phosphatase 71 46-116 U/L Total Protein 6.1 5.7-8.2 g/dL Albumin 3.9 3.2-4.8 g/dL Lactic Acid Level 1.1 0.4-2.0 mmol/L Ammonia < 10 L 11-32 umol/L Troponin I High Sensitivity 6 </=34 ng/L B-Type Natriuretic Peptide 171.18 0-100 pg/mL Urine Color Colorless Yellow Urine Clarity Turbid H Clear Urine pH 6.0 5.0-9.0 Urine Specific [place] 1.014 1.001-1.035 Urine Protein Trace H Negative Urine Ketones Negative Negative Urine Blood 1+ H Negative /uL Urine Nitrite 2+ H Negative Urine Bilirubin Negative Negative Urine Urobilinogen Normal Negative mg/dL Urine Leukocyte Esterase 3+ Negative /uL Urine RBC 12 0 - 4 /hpf Urine Microscopic WBC 1494 H 0-5 /HPF Urine Squamous Epithelial Cells None seen <5 /hpf Urine Bacteria Few H None Seen /hpf Urine Glucose Normal Normal mg/dL Microbiology Date/Time Source Procedure Growth Status 10/09/24 15:56 Hip Left Gram Stain Pending Resulted 10/09/24 15:56 Hip Left Wound Culture - Preliminary Resulted 10/08/24 11:29 Blood Blood Culture - Preliminary NO GROWTH AFTER 24 HOURS OF INCUBATION. Resulted 10/08/24 10:26 Urine - [place] Urine Culture - Preliminary Escherichia coli - ESBL Resulted Assessment/Plan Plan Patient is a 59 year old female who presented to the hospital with altered mental status. Reportedly, the patient was found to be altered when she woke up yesterday morning. She has been managed in hospital with encephalopathy/sepsis. She was found to have pneumonia and UTI. Cardiology is involved for cardiac hospice of care. It was of note that the patient is on outpatient antibiotic therapy for left hip wound which is on wound VAC also. She follows with primary (Dr. Barkley) and Infectious Disease as outpatient. Patient denies chest pain/palpitations. She is known to our practice from outside. Obese female, lying flat in bed. No JVD. Mucosa is pink. She is on supplemental nasal cannula oxygen. Not using accessory muscles of breathing. Scattered rhonchi/Rales in the lungs is heard. Cardiac: Regular, no thrill/ gallop. Abdomen is soft and obese. No gross mass. Extremities reveal 1+ edema bilaterally. There is a wound VAC to an ulcer in the lateral left upper hip. Past medical history includes morbid obesity, status post bariatric surgery and some weight loss, COPD/asthma, obstructive sleep apnea, hypertension, hyperlipidemia, depression, anxiety, kidney stone, gout, active smoker and history of /tonsillectomy/cholecystectomy/Carpal tunnel surgery/ spinal tap. Does have history of spider ulcer with cellulitis on wound VAC in the left upper lateral hip. Family history includes brother with CABG. Echocardiogram of February 2024 revealed ejection fraction of 55% and right ventricular systolic pressure 37 mm Hg Left heart catheterization of January 18, 2023 (performed in [facility]) revealed nonobstructive coronary artery disease, mid RCA with 60% smooth lesion (IFR was negative for significant hemodynamic disease), ejection fraction of 55% WBC: 13.3 - 13.4 - 10.4 Creatinine: 1.16 - 0.63 - 0.68 Potassium: 3.9 - 2.8 - 3.5 Sodium: 148 - 149 - 147 BNP: 171.18 Troponin (high sensitive): 6 Urinalysis revealed turbid urine with increased WBC Urine culture is positive Chest x-ray revealed: IMPRESSION: Right lung volume loss with near complete opacification of the right hemithorax. Small right pleural effusion. CT of the head revealed: IMPRESSION: No acute intracranial findings. CT of the chest reviewed: FINDINGS: LUNGS AND PLEURAL SPACES: Linear consolidation along the right major fissure and right lower lobe could be atelectasis and/or pneumonia. No significant effusion. HEART: Unremarkable. No cardiomegaly. No significant pericardial effusion. No significant coronary artery calcifications. MEDIASTINUM: Pleural mediastinal lymph nodes. BONES/JOINTS: Unremarkable. No acute fracture. No dislocation. SOFT TISSUES: Unremarkable. VASCULATURE: Scattered calcified atherosclerotic disease of aorta. No thoracic aortic aneurysm. LYMPH NODES: See above. OTHER FINDINGS: . . IMPRESSION: Linear consolidation along the right major fissure and right lower lobe could be atelectasis and/or pneumonia. CT of the lower extremities reveal: Technique: Axial images left femur were obtained and reformatted in coronal and sagittal planes. All CT scans at this medical facility are performed using dose modulation techniques as appropriate to a performed exam including the following: Automated exposure control was utilized; adjustment of the MA and/or KV according to patient size; and use of iterative reconstruction technique. CT Dose: CTDI volume is 24, 19 mGy. Dose- length product is 2230 mGy*cm FINDINGS: Bones: No acute fracture or dislocation. Joint spaces are maintained. No cortical erosion or lytic osseous lesion. Soft tissues: A soft tissue defect is seen in the lateral aspect of the upper thigh at the level of femoral greater trochanter. No drainable fluid collection is seen. The defect extends to the underlying tensor fascia naren muscle but does not extend to the underlying bone. Other: A Acevedo catheter is seen in the bladder. Sigmoid diverticulosis noted. IMPRESSION: 1. Large soft tissue defect on the lateral aspect of the upper thigh extending to underlying tensor fascia naren muscle. No drainable fluid collection. No osseous involvement. EKG reveals sinus rhythm, PVC and no specific ST-T changes Tele reveals sinus rhythm Patient is a 59-year-old female who presented with altered mental status. Presentation is in favor of encephalopathy which quetiapine metabolic/septic secondary to UTI/pneumonia. Cardiac etiology for presentation is less likely. Does have history of coronary artery disease and with negative FFR of RCA. Acute coronary syndrome is not considered. Encephalopathy, metabolic/septic Altered mental status UTI Pneumonia, community-acquired Morbid obesity Status post with loss surgery Cellulitis of lower extremity Hypertension Hyperlipidemia Obstructive sleep apnea Cardiac suggestion for management: Manage on telemetry Follow-up electrolytes and kidney function test and correct abnormalities, keep potassium above 4 magnesium above 2 Continue 81 mg Aspirin daily Request for echocardiogram Evaluation and management of UTI/sepsis aspirin primary team Consider pulmonary evaluation for pneumonia and abnormal CT of the chest Thank you for consultation Further evaluation and management depends on the above and clinical course A total of 75 minutes was spent reviewing the patient record, examining the patient, making a diagnostic and therapeutic plan, discussing this plan with medical personnel, following up on diagnostic studies and following the patient for clinical stability excluding any and all procedures. At least 50% of this time was spent in direct, [id number] contact. Thank you for allowing me to participate in this patient's care. Further recommendations will depend on patient's clinical course. Please do not hesitate to contact me if you have any questions or concerns. This medical document was created using electronic medical record system with [employer] computerized dictation system. Although this document has been carefully reviewed, there may still be some phonetic and typographical errors. These areas are purely typographical due to the imperfection of the software programs, and do not reflect any compromise in the patient's medical care. Plan discussed with: Patient, Other (nurse) DALIA ARAGON MD Oct 10, 2024 11:02
[2024-10-10 12:57] LABS: LDL Cholesterol 83 mg/dL (< 100)
--- NOTE | 2024-10-10 12:58 | DVHPN2 ---
Subjective Patient denies any symptoms. Reviewed: Care Plan, H&P, Labs, Medications Changes from previous H/P or p: No Changes General: Per HPI Eyes: No Pain, No Vision change, No Conjunctivae inflammation, No Eyelid inflammation, No Other, No Redness ENT: No Ear pain, No Ear discharge, No Nose pain, No Nose discharge, No Nose congestion, No Mouth pain, No Mouth swelling, No Throat pain, No Throat swelling, No Other Cardiovascular: No Chest Pain, No Palpitations, No Orthopnea, No Paroxysmal Noc. Dyspnea, No Edema, No Lt Headedness, No Other Respiratory: No Cough, No Dry; Shortness of breath; No SOB with excertion, No Wheezing, No Hemoptysis, No Pleuritic Pain, No Sputum, No Other Gastrointestinal: No Nausea, No Vomiting, No Abdominal Pain, No Diarrhea, No Constipation, No Melena, No Hematochezia, No Other Genitourinary: No Dysuria, No Frequency, No Incontinence, No Hematuria, No Retention, No Other Musculoskeletal: No other, No neck pain, No shoulder pain, No arm pain, No back pain, No hand pain, No leg pain, No foot pain Skin: No Rash, No Lesions, No Jaundice, No Bruising; Other (Left leg wound VAC) Objective Vitals Vital Signs Date Time Temp Pulse Resp B/P (MAP) Pulse Ox O2 Delivery O2 Flow Rate FiO2 10/10/24 11:15 60 17 116/72 (87) 96 10/10/24 09:18 Nasal Cannula* 3 32 10/10/24 08:30 98.2 98.2 Intake/Output Intake and Output 10/10/24 07:00 Intake Total 250 ml Balance 250 ml IV Total 250 ml General Appearance: Alert, Oriented X3, Cooperative, mild distress HEENT: Atraumatic, PERRLA Lungs: Clear to auscultation, Normal air movement Cardiovascular: Normal S1, Normal S2 Abdomen: Normal bowel sounds, Soft, No tenderness Genitourinary: No Apparent Abnormalities Musculoskeletal: Normal sensory function, Normal motor function Neuro: Normal speech, Cranial nerves 3-12 NL Skin: Dry, Intact Psych/Mental Status: Mental status NL, Mood NL Medications Current Medications Medications Dose Ordered Sig/Sumanth Route Start Time Stop Time Status Last Admin Dose Admin Aspirin 81 mg DAILY PO 10/09/24 10:00 10/10/24 10:00 81 MG Famotidine 20 mg Q12HR IV 10/08/24 22:00 10/10/24 10:00 20 MG Gabapentin 400 mg TID PO 10/08/24 14:00 10/10/24 05:53 400 MG Sodium Chloride 10 ml Q8HR IV 10/08/24 14:00 10/10/24 05:53 10 ML Ondansetron HCl 4 mg Q4HP PRN IV 10/08/24 13:30 Docusate Sodium 100 mg BIDPRN PRN PO 10/08/24 13:30 Acetaminophen 650 mg Q6HP PRN PO 10/08/24 13:30 Multivitamins 1 tab DAILY PO 10/09/24 10:00 10/10/24 10:00 1 TAB Nitroglycerin 0.4 mg Q5MINP PRN SL 10/08/24 16:30 Morphine Sulfate 2 mg Q30M PRN IV 10/08/24 16:30 10/08/24 19:47 2 MG Acetaminophen/ Hydrocodone Bitart 1 tab Q6HP PRN PO 10/08/24 20:30 10/10/24 08:59 1 TAB Albuterol 2.5 mg Q6HWA NEB 10/09/24 18:00 10/10/24 12:14 2.5 MG Ipratropium [place] 0.5 mg Q6HWA NEB 10/09/24 18:00 10/10/24 12:14 0.5 MG Acetylcysteine 100 mg Q6HWA NEB 10/09/24 18:00 10/10/24 18:01 10/10/24 06:01 100 MG Potassium Chloride 40 meq/ Sodium Chloride 1,020 ml @ 100 mls/hr [id number] IV 10/09/24 14:30 10/10/24 11:00 100 MLS/HR Meropenem 50 ml @ 17 mls/hr Q8HR IV 10/09/24 22:00 10/10/24 05:53 17 MLS/HR Vancomycin HCl 0 ml @ 0 mls/hr UD IV 10/09/24 14:30 Vancomycin HCl 250 ml @ 200 mls/hr Q16H IV 10/09/24 20:00 10/09/24 20:41 200 MLS/HR Laboratory Results Laboratory Tests 10/10/24 04:27 Chemistry Test 10/10/24 04:27 Calcium Level 10.1 mg/dL (8.7-10.4) Lipid panel Test 10/10/24 04:27 Cholesterol Level Pending HDL Cholesterol Pending Triglycerides Level Pending Urinalysis Test 10/08/24 10:26 Urine Color Colorless (Yellow) Urine Clarity Turbid (Clear) H Urine pH 6.0 (5.0-9.0) Urine Specific [place] 1.014 (1.001-1.035) Urine Protein Trace (Negative) H Urine Ketones Negative (Negative) Urine Blood 1+ /uL (Negative) H Urine Nitrite 2+ (Negative) H Urine Bilirubin Negative (Negative) Urine Urobilinogen Normal mg/dL (Negative) Urine Leukocyte Esterase 3+ /uL (Negative) Urine RBC 12 /hpf (0 - 4) Urine Microscopic WBC 1494 /HPF (0-5) H Urine Squamous Epithelial Cells None seen /hpf (<5) Urine Bacteria Few /hpf (None Seen) H Urine Glucose Normal mg/dL (Normal) Microbiology Microbiology Date/Time Source Procedure Growth Status 10/09/24 15:56 Hip Left Gram Stain Pending Resulted 10/09/24 15:56 Hip Left Wound Culture - Preliminary Resulted 10/08/24 11:29 Blood Blood Culture - Preliminary NO GROWTH AFTER 48 HOURS OF INCUBATION. Resulted 10/08/24 10:26 Urine - [place] Urine Culture - Final Escherichia coli - ESBL Complete Labs and/or images reviewed: Labs reviewed by me, Image(s) reviewed by me Assessment/Plan Assessment/Plan Impression: -acute hypoxic respiratory failure -sepsis -metabolic encephalopathy -pneumonia, probable aspiration etiology -complicated cystitis with Gram-negative rods -left hip abscess? , status post surgery -obesity -primary hypertension -acute on chronic diastolic heart failure Plan: Plan events: Urine positive for ESBL. CT scan of chest, left thigh reviewed. No abscess to surgical site. Chest with noted infiltrates to right middle and lower lung -improvement with leukocytosis. Change meropenem to Invanz -IV hydration -potassium replacement -midline placement -wound care consult -wound blood and urine culture: Pending -pain management -bronchodilators, Pulmicort -repeat labs in a.m. -discussion made with the patient and daughter was bedside. Total time spent with patient discussing and formulating plan of care: 35 minutes. This medical document was created using an electronic medical record system with Dragon computerized dictation system. Although this document has been carefully reviewed, there may still be some phonetic and typographical errors. These areas are purely typographical due to imperfections of the software programs, and do not reflect any compromise in the patient's medical care. Plan discussed with: Patient, Other (RN) My Orders Orders - WARNER MOSS NP Procedure Category Date Status Time Ct L Femur With Wo CT 10/09/24 Resulted Contrast 15:04 Albuterol Medneb PHA 10/09/24 In Process (Ventolin Medneb) 18:00 Ipratropium Medneb PHA 10/09/24 In Process (Atrovent Medneb) 18:00 Acetylcysteine PHA 10/09/24 In Process Inhalation 10% 18:00 Sod Chl 0.45% PHA 10/09/24 In Process (Sodi... W/Potassium 14:30 * Cardiology Consult CONS 10/09/24 Transmitted 14:22 Meropenem 1gm Ivpb PHA 10/09/24 In Process (Merrem 1gm/ Ns) 22:00 Vancomycin Per PHA 10/09/24 In Process Pharmacy 14:30 Insert Midline ORDERS 10/09/24 Transmitted 14:22 * Wound Consult CONS 10/09/24 Transmitted Chest Without Contrast CT 10/09/24 Resulted 14:22 Insert Midline ORDERS 10/09/24 Transmitted 15:09 Vancomycin PHA 10/09/24 In Process 1.25gm/250ml 20:00 Vancomycin,Trough LAB 10/11/24 Verified 19:00 Vancomycin Per MARCI 10/09/24 In Process Pharmacy Protoc 15:30 Wound Culture W/ Gs CHRISTINE 10/09/24 In Process 15:50 Wound Vac MARCI 10/09/24 In Process 15:00 Apply Barrier Cream [facility]CI 10/09/24 In Process 15:00 * Dietary Consult CONS 10/09/24 Transmitted 18:32 Basic Metabolic Panel LAB 10/11/24 Verified 04:00 Transfer Orders XFER 10/10/24 Verified 12:52 Discontinue [place] 10/10/24 Verified Catheter 12:52 Invanz 1gm Ivpb Daily PHA 10/11/24 Verified 10:00 Pantoprazole Tablet PHA 10/11/24 Verified (Protonix Tablet) 06:00 Date of Service: Oct 10, 2024 Billing Provider: WARNER MOSS NP Common Visit Codes: [id number] INP/OBS CARE(HIGH) WARNER MOSS NP Oct 10, 2024 12:58
[2024-10-10 12:59] LABS: Cholesterol 180 mg/dL (< 200)
[2024-10-10 13:03] LABS: HDL Cholesterol 38 mg/dL (40-59); Triglycerides 362 mg/dL (< 150)
[2024-10-10] MEDS: ERTAPENEM SOD INJ 1 GM in SODIUM CHL 0.9% 50 ML IV SCH (17:06)
[2024-10-10] MEDS ORDERED: ZOLP10TA PO (22:03)
[2024-10-10] MEDS: ZOLPIDEM TARTRATE 5 MG TAB PO PRN (22:29)
--- NOTE | 2024-10-10 22:55 | DVHINCON2 ---
Date of service: Oct 10, 2024 Referring Physician Gaurang Paredes NP Reason for Consultation Acute hypoxic respiratory failure, pneumonia and atelectasis. History of Present Illness A 59-year-old woman with past medical history including COPD, CHF, hypertension, hyperlipidemia, depression/anxiety who presented to ED on 10/08/24 for evaluation of altered level of consciousness. Daughter noted pt was unresponsive, unable to arouse, with altered mental status on day of presentation (last known well time day prior to presentation). Patient also had worsening shortness of breath. Pt had a wound VAC to her left leg due to a spider bite that continues to be reinfected. ED workup showed WBC of 13.3, platelets 232, sodium 148, potassium 3.9, BUN 26, creatinine 1.16, GFR 54, glucose 110, BNP 171.18, t roponin 6. UA was positive for urinary tract infection. Patient was admitted for further care, and pulmonary consultation is requested for evaluation and management of acute hypoxic respiratory failure, pneumonia and atelectasis. Review of Systems: 14-point review of systems negative unless otherwise noted above. Past Medical History: COPD, angina, CHF, hypertension, hyperlipidemia, depression, anxiety Past Surgical History: Cholecystectomy, , tonsillectomy Medications: Reviewed. Allergies: Influenza vaccines Pneumococcal vaccines Codeine. Family History: Alcoholism Cervical cancer Chronic obstructive pulmonary disease Depression Hypertension Social History: Nonsmoker. No alcohol or illicit drug use. Family History: Alcoholism G8 BROTHER G8 BROTHER G8 SISTER G8 SISTER Cervical cancer G8 MOTHER, , Age: 64 Chronic obstructive pulmonary disease G8 BROTHER G8 BROTHER G8 SISTER G8 SISTER Depression G8 MOTHER, , Age: 64 Hypertension G8 MOTHER, , Age: 64 G8 BROTHER G8 BROTHER G8 SISTER G8 SISTER Allergies: Coded Allergies: Influenza Vaccines (Unverified Allergy, Severe, hypotension/coma, 09/13/24) Pneumococcal Vaccines (Unverified Allergy, Severe, hypotension/coma, 09/13/24) Codeine (Unverified Allergy, Intermediate, itchy, 09/13/24) Home Meds Active Scripts Cefdinir (Cefdinir) 300 Mg Cap, 300 MG PO BID for 10 Days, #20 CAP Prov:FRITZ SUNG MD 09/19/24 Lactulose (Lactulose) 10 Gm/15 Ml [place], 10 GM PO BID for 30 Days, #4500 ML Prov:HANNAH MEJIAS RESIDENT 08/22/24 Spironolactone (Aldactone) 25 Mg Tab, 25 MG PO BIDD, #60 TAB Prov:MELISSA MCNALLY MD 07/11/22 Ipratropium [place] (Ipratropium [place]) 0.02 % [place], 0.5 MG NEB Q6HPRN PRN, #30 ML Prov:MELISSA MCNALLY MD 07/11/22 Reported Medications Zolpidem Tartrate (Ambien) 10 Mg Tab, 10 MG PO HS, TAB 10/10/24 Albuterol Sulfate (Albuterol Sulfate) 2 Mg Tab, 2.5 MG INH PRN, MG 09/13/24 Evolocumab (Repatha) 140 Mg/Ml Inj, 140 MG SC, INJ 09/13/24 Omeprazole (Gnp Omeprazole) 20 Mg Tab, 40 MG PO DAILY, TAB 09/13/24 Ascorbic Acid (VITAMIN C TABLET) 500 Mg Tb, 250 MG PO DAILY, TAB 09/13/24 Yeast (S. Boulardii)(S. Cerevi (Probiotic) Unknown Strength Cap, PO, CAP 09/13/24 Mannose (D-Mannose) 500 Mg Cap, 1300 MG PO DAILY, CAP 09/13/24 [place]-3 Fatty Acids (FISH OIL) 1,000 Mg Cap, 1000 MG PO, CAP 09/13/24 Multiple Vitamins W/ Minerals (Bariatric Multivitamins/I) 1 Cap Cap, 1 CAP PO, CAP 09/13/24 Potassium Chloride (POTASSIUM CHLORIDE CR) 10 Meq Tb, 10 MEQ PO DAILY, TAB 09/13/24 Aspirin (Aspir-Low) 81 Mg Tab, 81 MG PO DAILY for 30 Days, MG 09/13/24 Udzgvkbafh-Vdhnwenbymzoqm-Zzuc (Breztri Aerosphere 160-9-4.8 Mcg/Act) 1 Aer Aer, 1 AER IN PRN, AER 09/13/24 Carvedilol (Coreg) 6.25 Mg Tab, 6.25 MG PO BID, TAB 09/13/24 Hydrocodone-Acetaminophen (Hydrocodone Bitartrate/AC 5-325 mg) 1 Tab Tab, 1 TAB PO, TAB 09/13/24 Folic Acid (Folic Acid) 1 Mg Tab, 1 TAB PO DAILY for 30 Days, #30 05/30/24 Cholecalciferol (Vitamin D-3) 5,000 Unit Cap, 1 CAP PO DAILY for 90 Days, #90 05/30/24 Gabapentin (Gabapentin) 400 Mg Cap, 1 CAP PO QID for 30 Days, #120 03/20/24 Quetiapine Fumerate (QUETIAPINE FUMARATE) 400 Mg Tab, 1 TAB PO HS 03/20/24 Pregabalin (Pregabalin) 150 Mg Cap, 1 CAP PO TID for 30 Days, #90 03/20/24 Furosemide (Furosemide) 40 Mg Tab, 1 TAB PO BID 03/20/24 Current Medications Current Medications Medications (Trade) Dose Ordered Sig/Sumanth Route PRN Reason Start Time Stop Time Status Last Admin Ertapenem 1 gm/ Sodium Chloride 50 ml @ 100 mls/hr DAILY IV 10/10/24 18:00 10/10/24 17:06 Pantoprazole Sodium (Protonix Tablet) 40 mg DAILY@0600 PO 10/11/24 06:00 Zolpidem Tartrate (Ambien) 10 mg HSPRN PRN PO FOR INSOMNIA 10/10/24 22:15 10/10/24 22:29 Vital Signs Vital Signs Date Time Temp Pulse Resp B/P (MAP) Pulse Ox O2 Delivery O2 Flow Rate FiO2 10/10/24 20:49 98.1 70 16 134/88 (103) 98 98.1 10/10/24 19:08 Nasal Cannula* 2 28 Physical Exam Gen.: Patient lying in bed in no apparent distress. On supplemental oxygen. Head: Normocephalic, atraumatic. Eyes: EOMI/PERRLA. Ears: Normal hearing. Normal anatomy. Neck/trachea: Trachea midline, supple. Nose: Normal external anatomy. Mouth: Moist mucous membranes. Chest: Decreased air entry bilaterally. No wheezing or rhonchi. Cardiovascular: Positive S1, positive S2. Regular rate and rhythm. Abdomen: Positive bowel sounds in all 4 quadrants. Soft, non-tender, non- distended. : Deferred. Rectal: Deferred. Skin: Warm, dry. Intact. Extremities: 2+ radial pulses bilaterally. No lower extremity edema. Neuro: Awake, alert, oriented x3. No gross motor or sensory deficits. Cranial nerves II through XII intact. Gait not assessed. Labs/Diagnostic Data Labs Test 10/10/24 04:27 10/09/24 05:04 10/08/24 10:30 10/08/24 10:26 Range/Units White Blood Count 10.4 4.4-10.8 10^3/uL Red Blood Count 4.05 4.0-5.20 10^6/uL Hemoglobin 12.7 12.2-16.2 g/dL Hematocrit 38.6 36.0-46.0 % Mean Corpuscular Volume 95.3 80.0-100.0 fL Mean Corpuscular Hemoglobin 31.4 28.0-32.0 pg Mean Corpuscular Hemoglobin Concent 33.0 32.0-36.0 g/dL Red Cell Distribution Width 14.2 11.8-14.3 % Platelet Count 220 140-450 10^3/uL Mean Platelet Volume 9.2 6.9-10.8 fL Neutrophils (%) (Auto) 68.6 37.0-80.0 % Lymphocytes (%) (Auto) 21.3 10.0-50.0 % Monocytes (%) (Auto) 7.6 0.0-12.0 % Eosinophils (%) (Auto) 2.0 0.0-7.0 % Basophils (%) (Auto) 0.5 0.0-2.0 % Neutrophils # (Auto) 7.1 1.6-8.6 10 ^3/uL Lymphocytes # (Auto) 2.2 0.4-5.4 10 ^3/uL Monocytes # (Auto) 0.8 0-1.3 10 ^3/uL Eosinophils # (Auto) 0.2 0-0.8 10 ^3/uL Basophils # (Auto) 0.1 0-0.2 10 ^3/uL Nucleated Red Blood Cells 0.0 % Sodium Level 147 H 136-145 mmol/L Potassium Level 3.5 3.5-5.1 mmol/L Chloride Level 114 H 98-107 mmol/L Carbon Dioxide Level 28 20-31 mmol/L Anion Gap 5 5-15 Blood Urea Nitrogen 12 9-23 mg/dL Creatinine 0.68 0.550-1.02 mg/dL Glomerular Filtration Rate Calc 100 >90 mL/min BUN/Creatinine Ratio 17.6 10.0-20.0 Serum Glucose 97 74-106 mg/dL Calcium Level 10.1 8.7-10.4 mg/dL Triglycerides Level 362 H < 150 mg/dL Cholesterol Level 180 < 200 mg/dL LDL Cholesterol 83 < 100 mg/dL HDL Cholesterol 38 L 40-59 mg/dL Total Bilirubin 0.3 0.2-1.0 mg/dL Aspartate Amino Transferase (AST) 24 13-40 U/L Alanine Aminotransferase (ALT) 17 7-40 U/L Alkaline Phosphatase 71 46-116 U/L Total Protein 6.1 5.7-8.2 g/dL Albumin 3.9 3.2-4.8 g/dL Lactic Acid Level 1.1 0.4-2.0 mmol/L Ammonia < 10 L 11-32 umol/L Troponin I High Sensitivity 6 </=34 ng/L B-Type Natriuretic Peptide 171.18 0-100 pg/mL Urine Color Colorless Yellow Urine Clarity Turbid H Clear Urine pH 6.0 5.0-9.0 Urine Specific [place] 1.014 1.001-1.035 Urine Protein Trace H Negative Urine Ketones Negative Negative Urine Blood 1+ H Negative /uL Urine Nitrite 2+ H Negative Urine Bilirubin Negative Negative Urine Urobilinogen Normal Negative mg/dL Urine Leukocyte Esterase 3+ Negative /uL Urine RBC 12 0 - 4 /hpf Urine Microscopic WBC 1494 H 0-5 /HPF Urine Squamous Epithelial Cells None seen <5 /hpf Urine Bacteria Few H None Seen /hpf Urine Glucose Normal Normal mg/dL Microbiology Date/Time Source Procedure Growth Status 10/09/24 15:56 Hip Left Gram Stain - Final Resulted 10/09/24 15:56 Hip Left Wound Culture - Preliminary Resulted 10/08/24 11:29 Blood Blood Culture - Preliminary NO GROWTH AFTER 48 HOURS OF INCUBATION. Resulted 10/08/24 10:26 Urine - [place] Urine Culture - Final Escherichia coli - ESBL Complete Assessment Impression: Acute hypoxic respiratory failure Dependence on supplemental oxygen Pneumonia, likely gram negative Atelectasis Obesity, BMI 32.1 Plan: Supplemental oxygen 3 LPM NC Titrate to keep O2 saturated above 92%. Taper O2 as tolerated. Continue bronchodilators. Continue antibiotics Incentive spirometry Pain control Avoid oversedation Monitor renal function. Monitor electrolytes. Supplement as necessary. Monitor ins and outs. Potassium supplementation Diet and lifestyle modifications for weight reduction Obesity - complicates all care GI prophylaxis - Pepcid DVT prophylaxis. Prognosis: Poor given patient's multiple co-morbidities. Rest of plan per hospitalist and other consultants. Thank you, GENNY Paredes, for allowing me to participate in this patient's care. Further recommendations will depend on the patient's clinical course. Please do not hesitate to contact me if you have any questions or concerns. This medical document was created using an electronic medical record system with [employer] dictation system. Although these documentations are being carefully reviewed, there may still be some phonetic and typographical changes. The errors are purely typographical, due to imperfection on the software program, and do not reflect any compromise in the patient's medical care. Plan discussed with: Patient, Other (WADE Rao/GENNY Paredes/) SHERI CALIXTO MD Oct 10, 2024 22:54
[2024-10-11] VITALS (16 sets, daily range): BP systolic 111–128; BP diastolic 54–78; PULSE 57–76; RESP 16–20; TEMP 97.7–98.5; O2SAT 92–100
[2024-10-11] MEDS: PANTOPRAZOLE 40 MG TAB PO SCH (05:32)
[2024-10-11 05:45] LABS: Anion Gap 6 (5-15); Carbon Dioxide 24 mmol/L (20-31); Sodium 144 mmol/L (136-145)
[2024-10-11 05:48] LABS: Chloride 114 mmol/L (98-107); Potassium 3.3 mmol/L (3.5-5.1)
[2024-10-11 05:51] LABS: BUN/Creatinine Ratio 23.2 (10.0-20.0); Blood Urea Nitrogen 13 mg/dL (9-23); Glucose 92 mg/dL (74-106)
--- NOTE | 2024-10-11 07:06 | DVHSR ---
APPROVED REPORT EXAM: LIMITED Two-dimensional and M-mode echocardiogram with Doppler and color Doppler. Blood Pressure: 116/72 mmHg INDICATION PNEUMONIA RISK FACTORS Obesity: Height: 5'8, Weight: 210 DIMENSIONS LVDd5.1 (3.8-5.7cm)LA (2D)4.5 (1.9-4.0cm)Aortic Root3.3 (2.0-3.7cm) LVDs3.6 (2.5-4.0cm)LA (MM) (1.9-4.0cm)Aortic Cusp Exc1.4 (1.5-2.0cm) EF (%) 55.0 (55-70%)Rt. Atrium (1.9-4.0cm)Asc. Aorta cm IVSd1.0 (0.7-1.1cm)RV (D) (1.8-2.4cm) PWd1.1 (0.7-1.1cm) Mitral Valve MitralMitral Stenosis E wave0.86m/sMV Mean GR.mmHg A wave0.75m/sMV Peak GR.58mmHg E/A ratio1.12D MVAcm2 DECEL [id number] 1/2 [place] Aortic Valve Aortic ValveAortic Stenosis V11.33m/Sonia Mean GR.7mmHg V21.72m/Sonia Peak GR.12mmHg LVOT Diameter1.8 (1.8-2.4cm)Doppler AVA1.97cm2 Tricuspid Valve TR Velocity2.63m/s [id number] Other Information Quality : Technically LimitedRhythm : Technically limited study due to patient position.body habitus. Conclusion Left ventricle: LVEF was around 55%. There was no gross wall motion abnormality. Diastolic functio n was considered normal. Right ventricle was normal-sized with normal systolic function. Both atria were normal-sized. Aortic valve was not well visualized. There was no aortic insufficiency/stenosis. There was trace m itral/tricuspid regurgitation. Pulmonary valve was not well visualized. Right ventricular systolic pressure was assessed at 40 mm Hg. There was no pericardial effusion.
--- NOTE | 2024-10-11 07:10 | DVHPN2 ---
Progress Note - Dictate Date Seen: Oct 11, 2024 Medical Necessity Reason Pt with a Central, PICC or Fol: No vital signs Vital Sign Date Time Temp Pulse Resp B/P (MAP) Pulse Ox O2 Delivery O2 Flow Rate FiO2 10/11/24 06:35 65 18 100 10/11/24 06:27 Room Air 0.0 10/11/24 06:27 21 10/11/24 04:59 98.5 111/54 (73) 98.5 Total Intake and Output 10/10/24 10/10/24 10/11/24 15:00 23:00 07:00 Intake Total 600 ml 500 ml Output Total 500 ml Balance 600 ml 0 ml medications Current Medications Medications Dose Ordered Sig/Sumanth Route Start Time Stop Time Status Last Admin Dose Admin Aspirin 81 mg DAILY PO 10/09/24 10:00 10/10/24 10:00 81 MG Gabapentin 400 mg TID PO 10/08/24 14:00 10/11/24 05:32 400 MG Sodium Chloride 10 ml Q8HR IV 10/08/24 14:00 10/11/24 05:41 10 ML Ondansetron HCl 4 mg Q4HP PRN IV 10/08/24 13:30 Docusate Sodium 100 mg BIDPRN PRN PO 10/08/24 13:30 Acetaminophen 650 mg Q6HP PRN PO 10/08/24 13:30 Multivitamins 1 tab DAILY PO 10/09/24 10:00 10/10/24 10:00 1 TAB Nitroglycerin 0.4 mg Q5MINP PRN SL 10/08/24 16:30 Morphine Sulfate 2 mg Q30M PRN IV 10/08/24 16:30 10/08/24 19:47 2 MG Acetaminophen/ Hydrocodone Bitart 1 tab Q6HP PRN PO 10/08/24 20:30 10/11/24 03:09 1 TAB Albuterol 2.5 mg Q6HWA NEB 10/09/24 18:00 10/11/24 06:27 2.5 MG Ipratropium [place] 0.5 mg Q6HWA NEB 10/09/24 18:00 10/11/24 06:27 0.5 MG Vancomycin HCl 0 ml @ 0 mls/hr UD IV 10/09/24 14:30 Vancomycin HCl 250 ml @ 200 mls/hr Q16H IV 10/09/24 20:00 10/11/24 04:16 200 MLS/HR Ertapenem 1 gm/ Sodium Chloride 50 ml @ 100 mls/hr DAILY IV 10/10/24 18:00 10/10/24 17:06 100 MLS/HR Pantoprazole Sodium 40 mg DAILY@0600 PO 10/11/24 06:00 10/11/24 05:32 40 MG Zolpidem Tartrate 10 mg HSPRN PRN PO 10/10/24 22:15 10/10/24 22:29 10 MG laboratory and microbiology Laboratory Tests 10/11/24 04:38 10/10/24 04:27 Test 10/11/24 04:38 Range/Units Serum Glucose 92 74-106 mg/dL Assessment/Plan Patient is a 59 year old female who presented to the hospital with altered mental status. Reportedly, the patient was found to be altered when she woke up yesterday morning. She has been managed in hospital with encephalopathy/sepsis. She was found to have pneumonia and UTI. Cardiology is involved for cardiac aspects of care. It was of note that the patient is on outpatient antibiotic therapy for left hip wound which is on wound VAC also. She follows with primary (Dr. Barkley) and Infectious Disease as outpatient. Patient denies chest pain/palpitations. She is known to our practice from outside. Obese female, lying flat in bed. No JVD. Mucosa is pink. She is on supplemental nasal cannula oxygen. Not using accessory muscles of breathing. Scattered rhonchi/Rales in the lungs is heard. Cardiac: Regular, no thrill/gallop. Abdomen is soft and obese. No gross mass. Extremities reveal 1+ edema bilaterally. There is a wound VAC to an ulcer in the lateral left upper hip. Past medical history includes morbid obesity, status post bariatric surgery and some weight loss, COPD/asthma, obstructive sleep apnea, hypertension, hyperlipidemia, depression, anxiety, kidney stone, gout, active smoker and history of /tonsillectomy/cholecystectomy/Carpal tunnel surgery/ spinal tap. Does have history of spider ulcer with cellulitis on wound VAC in the left upper lateral hip. Family history includes brother with CABG. Echocardiogram of February 2024 revealed ejection fraction of 55% and right ventricular systolic pressure 37 mm Hg Left heart catheterization of January 18, 2023 (performed in [facility]) revealed nonobstructive coronary artery disease, mid RCA with 60% smooth lesion (IFR was negative for significant hemodynamic disease), ejection fraction of 55% WBC: 13.3 - 13.4 - 10.4 Creatinine: 1.16 - 0.63 - 0.68 - 0.56 Potassium: 3.9 - 2.8 - 3.5 - 3.3 Sodium: 148 - 149 - 147 - 144 BNP: 171.18 Troponin (high sensitive): 6 LDL: 83 Urinalysis revealed turbid urine with increased WBC Urine culture is positive Chest x-ray revealed: IMPRESSION: Right lung volume loss with near complete opacification of the right hemithorax. Small right pleural effusion. CT of the head revealed: IMPRESSION: No acute intracranial findings. CT of the chest reviewed: FINDINGS: LUNGS AND PLEURAL SPACES: Linear consolidation along the right major fissure and right lower lobe could be atelectasis and/or pneumonia. No significant effusion. HEART: Unremarkable. No cardiomegaly. No significant pericardial effusion. No significant coronary artery calcifications. MEDIASTINUM: Pleural mediastinal lymph nodes. BONES/JOINTS: Unremarkable. No acute fracture. No dislocation. SOFT TISSUES: Unremarkable. VASCULATURE: Scattered calcified atherosclerotic disease of aorta. No thoracic aortic aneurysm. LYMPH NODES: See above. OTHER FINDINGS: . . IMPRESSION: Linear consolidation along the right major fissure and right lower lobe could be atelectasis and/or pneumonia. CT of the lower extremities reveal: Technique: Axial images left femur were obtained and reformatted in coronal and sagittal planes. All CT scans at this medical facility are performed using dose modulation techniques as appropriate to a performed exam including the following: Automated exposure control was utilized; adjustment of the MA and/or KV according to patient size; and use of iterative reconstruction technique. CT Dose: CTDI volume is 24, 19 mGy. Dose- length product is 2230 mGy*cm FINDINGS: Bones: No acute fracture or dislocation. Joint spaces are maintained. No cortical erosion or lytic osseous lesion. Soft tissues: A soft tissue defect is seen in the lateral aspect of the upper thigh at the level of femoral greater trochanter. No drainable fluid collection is seen. The defect extends to the underlying tensor fascia naren muscle but does not extend to the underlying bone. Other: A Acevedo catheter is seen in the bladder. Sigmoid diverticulosis noted. IMPRESSION: 1. Large soft tissue defect on the lateral aspect of the upper thigh extending to underlying tensor fascia naren muscle. No drainable fluid collection. No osseous involvement. EKG reveals sinus rhythm, PVC and no specific ST-T changes Tele reveals sinus rhythm Echocardiogram revealed: Left ventricle: LVEF was around 55%. There was no gross wall motion abnormality. Diastolic function was considered normal. Right ventricle was normal-sized with normal systolic function. Both atria were normal-sized. Aortic valve was not well visualized. There was no aortic insufficiency/stenosis. There was trace mitral/tricuspid regurgitation. Pulmonary valve was not well visualized. Right ventricular systolic pressure was assessed at 40 mm Hg. There was no pericardial effusion. Patient is a 59-year-old female who presented with altered mental status. Presentation is in favor of encephalopathy which quetiapine metabolic/septic secondary to UTI/pneumonia. Cardiac etiology for presentation is less likely. Does have history of coronary artery disease and with negative FFR of RCA. Acute coronary syndrome is not considered. Encephalopathy, metabolic/septic Altered mental status UTI Pneumonia, community-acquired Morbid obesity Status post with loss surgery Cellulitis of lower extremity Hypertension Hyperlipidemia Obstructive sleep apnea Cardiac suggestion for management: Manage on telemetry Follow-up electrolytes and kidney function test and correct abnormalities, keep potassium above 4 magnesium above 2 Continue 81 mg Aspirin daily Evaluation and management of UTI/sepsis aspirin primary team Pulmonary follow up Further evaluation and management depends on the above and clinical course A total of 55 minutes was spent reviewing the patient record, examining the patient, making a diagnostic and therapeutic plan, discussing this plan with medical personnel, following up on diagnostic studies and following the patient for clinical stability excluding any and all procedures. At least 50% of this time was spent in direct, [id number] contact. Thank you for allowing me to participate in this patient's care. Further recommendations will depend on patient's clinical course. Please do not hesitate to contact me if you have any questions or concerns. This medical document was created using electronic medical record system with [employer] computerized dictation system. Although this document has been carefully reviewed, there may still be some phonetic and typographical errors. These areas are purely typographical due to the imperfection of the software programs, and do not reflect any compromise in the patient's medical care. Dietary Evaluation Review Comments: 1) Shaka 1 pk BID 2) Continue current plan of care Expected Outcomes/Goals: Pt will meet >75% estimated needs Fu 3-5 days Plan discussed with: Patient, Other (nurse) DALIA ARAGON MD Oct 11, 2024 07:10
[2024-10-11] MEDS: POTASSIUM EFFERVESENT TAB 25 MEQ PO ONE (10:45)
[2024-10-11] MEDS: MORPHINE SULFATE INJ 2 MG/ml SYRG IV PRN (11:52)
--- NOTE | 2024-10-11 12:12 | DVH ---
US KIDNEY HISTORY: assess for renal calculi COMPARISON: None TECHNIQUE: Transverse and longitudinal grayscale and color Doppler images were obtained of the kidney s and bladder. FINDINGS: Right kidney: Size: 11.6 cm Cortical thickness: Normal Echogenicity: Normal Stones: None Masses: None Hydronephrosis: Yes Ureters: Not well visualized. Other: None Left kidney: Size: 10.5 cm Cortical thickness: Normal Echogenicity: Normal Stones: 11 mm nonobstructive left lower kidney stone. Masses: None Hydronephrosis: None Ureters: Not well visualized. Other: None Bladder: Normal Other: None. IMPRESSION: 11 mm nonobstructive left lower kidney stone. Mild right pelviectasis.
--- NOTE | 2024-10-11 12:56 | DVHPN2 ---
Subjective Patient denies any symptoms. Reviewed: Care Plan, H&P, Labs, Medications Changes from previous H/P or p: No Changes General: Per HPI Eyes: No Pain, No Vision change, No Conjunctivae inflammation, No Eyelid inflammation, No Other, No Redness ENT: No Ear pain, No Ear discharge, No Nose pain, No Nose discharge, No Nose congestion, No Mouth pain, No Mouth swelling, No Throat pain, No Throat swelling, No Other Cardiovascular: No Chest Pain, No Palpitations, No Orthopnea, No Paroxysmal Noc. Dyspnea, No Edema, No Lt Headedness, No Other Respiratory: No Cough, No Dry; Shortness of breath; No SOB with excertion, No Wheezing, No Hemoptysis, No Pleuritic Pain, No Sputum, No Other Gastrointestinal: No Nausea, No Vomiting, No Abdominal Pain, No Diarrhea, No Constipation, No Melena, No Hematochezia, No Other Genitourinary: No Dysuria, No Frequency, No Incontinence, No Hematuria, No Retention, No Other Musculoskeletal: No other, No neck pain, No shoulder pain, No arm pain, No back pain, No hand pain, No leg pain, No foot pain Skin: No Rash, No Lesions, No Jaundice, No Bruising; Other (Left leg wound VAC) Objective Vitals Vital Signs Date Time Temp Pulse Resp B/P (MAP) Pulse Ox O2 Delivery O2 Flow Rate FiO2 10/11/24 12:42 97.7 76 16 111/71 (84) 94 97.7 10/11/24 12:26 Room Air 0.0 10/11/24 12:26 21 Intake/Output Intake and Output 10/11/24 07:00 Intake Total 1100 ml Output Total 500 ml Balance 600 ml Intake Oral 250 ml IV Total 850 ml Output Urine Total 500 ml Stool Total 0 ml General Appearance: Alert, Oriented X3, Cooperative, No acute distress HEENT: Atraumatic, PERRLA Lungs: Clear to auscultation, Normal air movement Cardiovascular: Normal S1, Normal S2 Abdomen: Normal bowel sounds, Soft, No tenderness Genitourinary: No Apparent Abnormalities Musculoskeletal: Normal sensory function, Normal motor function Neuro: Normal speech, Cranial nerves 3-12 NL Skin: Dry, Intact Psych/Mental Status: Mental status NL, Mood NL Medications Current Medications Medications Dose Ordered Sig/Sumanth Route Start Time Stop Time Status Last Admin Dose Admin Aspirin 81 mg DAILY PO 10/09/24 10:00 10/11/24 09:12 81 MG Gabapentin 400 mg TID PO 10/08/24 14:00 10/11/24 05:32 400 MG Sodium Chloride 10 ml Q8HR IV 10/08/24 14:00 10/11/24 05:41 10 ML Ondansetron HCl 4 mg Q4HP PRN IV 10/08/24 13:30 Docusate Sodium 100 mg BIDPRN PRN PO 10/08/24 13:30 Acetaminophen 650 mg Q6HP PRN PO 10/08/24 13:30 Multivitamins 1 tab DAILY PO 10/09/24 10:00 10/11/24 09:12 1 TAB Nitroglycerin 0.4 mg Q5MINP PRN SL 10/08/24 16:30 Morphine Sulfate 2 mg Q30M PRN IV 10/08/24 16:30 10/08/24 19:47 2 MG Acetaminophen/ Hydrocodone Bitart 1 tab Q6HP PRN PO 10/08/24 20:30 10/11/24 09:13 1 TAB Albuterol 2.5 mg Q6HWA NEB 10/09/24 18:00 10/11/24 12:26 2.5 MG Ipratropium [place] 0.5 mg Q6HWA NEB 10/09/24 18:00 10/11/24 12:26 0.5 MG Vancomycin HCl 0 ml @ 0 mls/hr UD IV 10/09/24 14:30 Vancomycin HCl 250 ml @ 200 mls/hr Q16H IV 10/09/24 20:00 10/11/24 04:16 200 MLS/HR Ertapenem 1 gm/ Sodium Chloride 50 ml @ 100 mls/hr DAILY IV 10/10/24 18:00 10/11/24 09:11 100 MLS/HR Pantoprazole Sodium 40 mg DAILY@0600 PO 10/11/24 06:00 10/11/24 05:32 40 MG Zolpidem Tartrate 10 mg HSPRN PRN PO 10/10/24 22:15 10/10/24 22:29 10 MG Morphine Sulfate 2 mg Q6HPRN PRN IV 10/11/24 11:15 10/11/24 11:52 2 MG Laboratory Results Laboratory Tests 10/10/24 04:27 10/11/24 04:38 Chemistry Test 10/11/24 04:38 Calcium Level 10.0 mg/dL (8.7-10.4) Urinalysis Test 10/08/24 10:26 Urine Color Colorless (Yellow) Urine Clarity Turbid (Clear) H Urine pH 6.0 (5.0-9.0) Urine Specific [place] 1.014 (1.001-1.035) Urine Protein Trace (Negative) H Urine Ketones Negative (Negative) Urine Blood 1+ /uL (Negative) H Urine Nitrite 2+ (Negative) H Urine Bilirubin Negative (Negative) Urine Urobilinogen Normal mg/dL (Negative) Urine Leukocyte Esterase 3+ /uL (Negative) Urine RBC 12 /hpf (0 - 4) Urine Microscopic WBC 1494 /HPF (0-5) H Urine Squamous Epithelial Cells None seen /hpf (<5) Urine Bacteria Few /hpf (None Seen) H Urine Glucose Normal mg/dL (Normal) Microbiology Microbiology Date/Time Source Procedure Growth Status 10/09/24 15:56 Hip Left Gram Stain - Final Resulted 10/09/24 15:56 Hip Left Wound Culture - Preliminary Resulted 10/08/24 11:29 Blood Blood Culture - Preliminary NO GROWTH AFTER 72 HOURS OF INCUBATION. Resulted 10/08/24 10:26 Urine - [place] Urine Culture - Final Escherichia coli - ESBL Complete Labs and/or images reviewed: Labs reviewed by me, Image(s) reviewed by me Assessment/Plan Assessment/Plan Impression: -acute hypoxic respiratory failure -sepsis -metabolic encephalopathy -pneumonia, probable aspiration etiology -complicated cystitis with Gram-negative rods -left hip abscess? , status post surgery -obesity -primary hypertension -acute on chronic diastolic heart failure Plan: Plan events: Pending infectious Disease consultation. Antibiotics changed Invanz. Patient continues to be hypokalemic. Clinically patient has improved. Renal ultrasound ordered, 11 mm nonobstructive stone. Questionable underlying cause of recurrent ESBL. -continue Invanz Potassium replacement -wound care consult -wound blood and urine culture: Invanz -pain management -bronchodilators, Pulmicort -repeat labs in a.m. Total time spent with patient discussing and formulating plan of care: 35 minutes. This medical document was created using an electronic medical record system with [employer] dictation system. Although this document has been carefully reviewed, there may still be some phonetic and typographical errors. These areas are purely typographical due to imperfections of the software programs, and do not reflect any compromise in the patient's medical care. Plan discussed with: Patient, Other (RN) My Orders Orders - WARNER MOSS NP Procedure Category Date Status Time Transfer Orders XFER 10/10/24 Transmitted 12:52 Pantoprazole Tablet PHA 10/11/24 In Process (Protonix Tablet) 06:00 Ertapenem Sod Inj PHA 10/10/24 In Process (Invanz) 18:00 * Infectious [place]- CONS 10/10/24 Transmitted Ibis Conte 13:51 Basic Metabolic Panel LAB 10/12/24 Verified 04:00 Complete Blood Count LAB 10/12/24 Verified 04:00 Kidney US 10/11/24 Resulted 11:12 Morphine Sulfate PHA 10/11/24 In Process Injection 11:15 Uric Acid LAB 10/12/24 Verified 04:00 Date of Service: Oct 11, 2024 Billing Provider: WARNER MOSS NP Common Visit Codes: [id number] INP/OBS CARE(HIGH) WARNER MOSS NP Oct 11, 2024 12:56
[2024-10-11] MEDS: POTASSIUM CHLORIDE 40 MEQ, LIDOCAINE 1% (LOCAL ANESTH.) 4 ML in SODIUM CHL 0.9% 250 ML IV ONE (16:30)
--- NOTE | 2024-10-11 18:12 | DVHINCON2 ---
"Date of service: Oct 11, 2024 Family History: Alcoholism G8 BROTHER G8 BROTHER G8 SISTER G8 SISTER Cervical cancer G8 MOTHER, , Age: 64 Chronic obstructive pulmonary disease G8 BROTHER G8 BROTHER G8 SISTER G8 SISTER Depression G8 MOTHER, , Age: 64 Hypertension G8 MOTHER, , Age: 64 G8 BROTHER G8 BROTHER G8 SISTER G8 SISTER Allergies: Coded Allergies: Influenza Vaccines (Unverified Allergy, Severe, hypotension/coma, 09/13/24) Pneumococcal Vaccines (Unverified Allergy, Severe, hypotension/coma, 09/13/24) Codeine (Unverified Allergy, Intermediate, itchy, 09/13/24) Home Meds Active Scripts Cefdinir (Cefdinir) 300 Mg Cap, 300 MG PO BID for 10 Days, #20 CAP Prov:FRITZ SUNG MD 09/19/24 Lactulose (Lactulose) 10 Gm/15 Ml [place], 10 GM PO BID for 30 Days, #4500 ML Prov:HANNAH MEJIAS 08/22/24 Spironolactone (Aldactone) 25 Mg Tab, 25 MG PO BIDD, #60 TAB Prov:MELISSA MCNALLY MD 07/11/22 Ipratropium [place] (Ipratropium [place]) 0.02 % [place], 0.5 MG NEB Q6HPRN PRN, #30 ML Prov:MELISSA MCNALLY MD 07/11/22 Reported Medications Zolpidem Tartrate (Ambien) 10 Mg Tab, 10 MG PO HS, TAB 10/10/24 Albuterol Sulfate (Albuterol Sulfate) 2 Mg Tab, 2.5 MG INH PRN, MG 09/13/24 Evolocumab (Repatha) 140 Mg/Ml Inj, 140 MG SC, INJ 09/13/24 Omeprazole (Gnp Omeprazole) 20 Mg Tab, 40 MG PO DAILY, TAB 09/13/24 Ascorbic Acid (VITAMIN C TABLET) 500 Mg Tb, 250 MG PO DAILY, TAB 09/13/24 Yeast (S. Boulardii)(S. Cerevi (Probiotic) Unknown Strength Cap, PO, CAP 09/13/24 Mannose (D-Mannose) 500 Mg Cap, 1300 MG PO DAILY, CAP 09/13/24 [place] [facility]-3 Fatty Acids (FISH OIL) 1,000 Mg Cap, 1000 MG PO, CAP 09/13/24 Multiple Vitamins W/ Minerals (Bariatric Multivitamins/I) 1 Cap Cap, 1 CAP PO, CAP 09/13/24 Potassium Chloride (POTASSIUM CHLORIDE CR) 10 Meq Tb, 10 MEQ PO DAILY, TAB 09/13/24 Aspirin (Aspir-Low) 81 Mg Tab, 81 MG PO DAILY for 30 Days, MG 09/13/24 Rhkqaluggp-Hrjtpmlcgjvdsq-Ywwy (Breztri Aerosphere 160-9-4.8 Mcg/Act) 1 Aer Aer, 1 AER IN PRN, AER 09/13/24 Carvedilol (Coreg) 6.25 Mg Tab, 6.25 MG PO BID, TAB 09/13/24 Hydrocodone-Acetaminophen (Hydrocodone Bitartrate/AC 5-325 mg) 1 Tab Tab, 1 TAB PO, TAB 09/13/24 Folic Acid (Folic Acid) 1 Mg Tab, 1 TAB PO DAILY for 30 Days, #30 05/30/24 Cholecalciferol (Vitamin D-3) 5,000 Unit Cap, 1 CAP PO DAILY for 90 Days, #90 05/30/24 Gabapentin (Gabapentin) 400 Mg Cap, 1 CAP PO QID for 30 Days, #120 03/20/24 Quetiapine Fumerate (QUETIAPINE FUMARATE) 400 Mg Tab, 1 TAB PO HS 03/20/24 Pregabalin (Pregabalin) 150 Mg Cap, 1 CAP PO TID for 30 Days, #90 03/20/24 Furosemide (Furosemide) 40 Mg Tab, 1 TAB PO BID 03/20/24 Current Medications Current Medications Medications (Trade) Dose Ordered Sig/Sumanth Route PRN Reason Start Time Stop Time Status Last Admin Pantoprazole Sodium (Protonix Tablet) 40 mg DAILY@0600 PO 10/11/24 06:00 10/11/24 05:32 Zolpidem Tartrate (Ambien) 10 mg HSPRN PRN PO FOR INSOMNIA 10/10/24 22:15 10/10/24 22:29 Morphine Sulfate 2 mg Q6HPRN PRN IV SEVERE PAIN (7-10 PAIN SCALE) 10/11/24 11:15 10/11/24 11:52 Vital Signs Vital Signs Date Time Temp Pulse Resp B/P (MAP) Pulse Ox O2 Delivery O2 Flow Rate FiO2 10/11/24 17:53 63 17 119/60 10/11/24 17:00 98.1 92 98.1 10/11/24 13:50 0.0 21 10/11/24 12:26 Room Air Labs/Diagnostic Data Labs Test 10/11/24 04:38 10/10/24 04:27 10/09/24 05:04 10/08/24 10:30 Range/Units Sodium Level 144 136-145 mmol/L Potassium Level 3.3 L 3.5-5.1 mmol/L Chloride Level 114 H 98-107 mmol/L Carbon Dioxide Level 24 20-31 mmol/L Anion Gap 6 5-15 Blood Urea Nitrogen 13 9-23 mg/dL Creatinine 0.56 0.550-1.02 mg/dL Glomerular Filtration Rate Calc 104 >90 mL/min BUN/Creatinine Ratio 23.2 H 10.0-20.0 Serum Glucose 92 74-106 mg/dL Calcium Level 10.0 8.7-10.4 mg/dL White Blood Count 10.4 4.4-10.8 10^3/uL Red Blood Count 4.05 4.0-5.20 10^6/uL Hemoglobin 12.7 12.2-16.2 g/dL Hematocrit 38.6 36.0-46.0 % Mean Corpuscular Volume 95.3 80.0-100.0 fL Mean Corpuscular Hemoglobin 31.4 28.0-32.0 pg Mean Corpuscular Hemoglobin Concent 33.0 32.0-36.0 g/dL Red Cell Distribution Width 14.2 11.8-14.3 % Platelet Count 220 140-450 10^3/uL Mean Platelet Volume 9.2 6.9-10.8 fL Neutrophils (%) (Auto) 68.6 37.0-80.0 % Lymphocytes (%) (Auto) 21.3 10.0-50.0 % Monocytes (%) (Auto) 7.6 0.0-12.0 % Eosinophils (%) (Auto) 2.0 0.0-7.0 % Basophils (%) (Auto) 0.5 0.0-2.0 % Neutrophils # (Auto) 7.1 1.6-8.6 10 ^3/uL Lymphocytes # (Auto) 2.2 0.4-5.4 10 ^3/uL Monocytes # (Auto) 0.8 0-1.3 10 ^3/uL Eosinophils # (Auto) 0.2 0-0.8 10 ^3/uL Basophils # (Auto) 0.1 0-0.2 10 ^3/uL Nucleated Red Blood Cells 0.0 % Triglycerides Level 362 H < 150 mg/dL Cholesterol Level 180 < 200 mg/dL LDL Cholesterol 83 < 100 mg/dL HDL Cholesterol 38 L 40-59 mg/dL Total Bilirubin 0.3 0.2-1.0 mg/dL Aspartate Amino Transferase (AST) 24 13-40 U/L Alanine Aminotransferase (ALT) 17 7-40 U/L Alkaline Phosphatase 71 46-116 U/L Total Protein 6.1 5.7-8.2 g/dL Albumin 3.9 3.2-4.8 g/dL Lactic Acid Level 1.1 0.4-2.0 mmol/L Ammonia < 10 L 11-32 umol/L Troponin I High Sensitivity 6 </=34 ng/L B-Type Natriuretic Peptide 171.18 0-100 pg/mL Test 10/08/24 10:26 Range/Units Urine Color Colorless Yellow Urine Clarity Turbid H Clear Urine pH 6.0 5.0-9.0 Urine Specific [place] 1.014 1.001-1.035 Urine Protein Trace H Negative Urine Ketones Negative Negative Urine Blood 1+ H Negative /uL Urine Nitrite 2+ H Negative Urine Bilirubin Negative Negative Urine Urobilinogen Normal Negative mg/dL Urine Leukocyte Esterase 3+ Negative /uL Urine RBC 12 0 - 4 /hpf Urine Microscopic WBC 1494 H 0-5 /HPF Urine Squamous Epithelial Cells None seen <5 /hpf Urine Bacteria Few H None Seen /hpf Urine Glucose Normal Normal mg/dL Microbiology Date/Time Source Procedure Growth Status 10/09/24 15:56 Hip Left Gram Stain - Final Resulted 10/09/24 15:56 Hip Left Wound Culture - Preliminary Resulted 10/08/24 11:29 Blood Blood Culture - Preliminary NO GROWTH AFTER 72 HOURS OF INCUBATION. Resulted 10/08/24 10:26 Urine - [place] Urine Culture - Final Escherichia coli - ESBL Complete Problems(with codes): (1) Encounter for management of wound VAC (2) Leukocytosis, unspecified (3) UTI (urinary tract infection) (4) Sepsis due to urinary tract infection (5) Metabolic encephalopathy (6) Generalized weakness (7) History of extended-spectrum beta-lactamase producing Escherichia coli infection (8) Escherichia coli (E. coli) infection (9) Lobar pneumonia, unspecified organism Plan/Recommendation ASSESSMENT AND PLAN: ID Problem List: - Acute cystitis - Altered mental status - Severe sepsis - Chronic left leg ulcer on wound vac therapy CHF COPD - Hypernatremia Assessment This is an elderly female with a past medical history of anxiety, CHF, COPD, hypertension, depression, and hyperlipidemia, who presents with altered mental status. Per her daughter, the patient was unresponsive, unable to wake up, and short of breath. She was noted to be tired the day prior. The patient has a wound vac on her left leg due to a spider bite that continues to get reinfected. On admission: - Vital signs: T 97.8?F, BP 122/61?mmHg, HR 90?bpm, RR 18?breaths/min, SpO? 94% on 4L nasal cannula. - Labs: Glucose 110, WBC 13.3 (now improved to 9.3), Platelets 232, BUN 18, Creatinine 1.16, GFR 54. - Urinalysis: Pyuria 3+, leukocyte esterase 2+, nitrites positive. - Urine culture: Growth of E. coli sensitive to meropenem and ertapenem; resistant to Bactrim and fluoroquinolones. - Imaging: - Head CT: No acute intracranial findings. - Chest CT: Linear consolidation in the right major fissure/right lower lobepossible atelectasis vs. pneumonia. - CT Left Leg: Large soft tissue defect on the lateral aspect of the upper left thigh involving underlying fascia extending to the tensor fascia naren muscle; no drainable fluid collection or osteomyelitis. - Renal ultrasound: 11 mm non-obstructive left lower pole kidney stone. The patient was started on ertapenem and is clinically improving; mentation is slowly improving, and she is now improving on room air. Plan: - Acute E. coli cystitis: - Continue ertapenem to complete a 7-day course of carbapenem therapy. - Recommend placement of a midline catheter to adequately treat UTI given severe sepsis symptoms. - If the patient needs to be discharged earlier or without a midline, recommend using fosfomycin 3 grams once daily; give one dose prior to discharge if available from pharmacy. - Follow up on sputum and blood cultures. - Altered mental status: - Continue to monitor mentation; likely secondary to sepsis. - Severe sepsis: - Continue antibiotics as above. - Monitor vital signs and labs. - Chronic left leg ulcer: - Continue wound vac therapy at -125 mmHg continuous suction, which appears to be applying adequate pressure to improve wound closure. - Wound currently appears uninfected. COPD: - Continue home medications, including albuterol as needed. CHF: - Monitor fluid status; continue home medications. - Hypernatremia: - Monitor electrolytes; correct as needed. - Discharge planning: - Evaluate the need for a midline catheter. - Assess patient's home support and ability to comply with therapy. Isolation Precautions: Standard Assessment and plan were discussed with the patient as written above. Plan is subject to change pending incorporation of new incoming information/diagnostics. Updates may be added as addendum at the bottom (OR TOP) of this note. Thank you for your interesting consult. ID will continue to follow. Please contact Infectious Disease for any questions or concerns. Loulou Conte M.D. [facility] Ph: ? History: The patient's chart and medications were reviewed in detail, and the patient was seen and examined. History obtained from: Daughter The patient is an elderly female with a past medical history of anxiety, CHF, COPD, depression, hyperlipidemia, and hypertension, who presents with altered mental status. Per her daughter, the patient was unresponsive, unable to wake up, and short of breath. She was noted to be tired the day prior. The patient has a wound vac on her left leg due to a spider bite that continues to get reinfected. Review of Systems: A complete 10-system review of systems was completed and negative except as noted in the HPI or here. ROS: - CONSTITUTIONAL: Reports fatigue. - HEENT: Denies changes in vision and hearing. - RESPIRATORY: Reports shortness of breath. - CV: Denies palpitations and chest pain. - GI: Denies abdominal pain, nausea, vomiting, and diarrhea. - : Denies dysuria and urinary frequency. - MSK: Denies myalgia and joint pain. - SKIN: Reports left leg ulcer with wound vac. - NEUROLOGICAL: Reports altered mental status. - PSYCHIATRIC: History of anxiety and depression. Past Medical History: Diagnosis Anxiety CHF COPD Depression Hyperlipidemia Hypertension Past Surgical History: - Hysterectomy - Cystectomy - - Tonsillectomy Home Medications: Medication | Sig - | Aspirin | Carvedilol (Coreg) | Furosemide (Lasix) | Famotidine | Gabapentin | Albuterol | Duloxetine | Multivitamin | Allergies: - Allergic to multiple vaccines Family History: - No notable family history Social History: - No smoking - No alcohol - No IV drug use - Lives with daughter Objective: Vital Signs on Arrival: Temp: 97.8?F?BP: 122/61?mmHg?Pulse: 90?bpm?Resp: 18?SpO?: 94% on 4L nasal cannula Most Recent Vital Signs: Not provided Admission Weight: Not provided Physical Exam: General:?No acute distress. Patient is cooperative, not agitated, follows minimal commands. Neck:?Supple. No masses. HEENT:?PERRL. Normal lids and conjunctiva. Moist mucous membranes. Oropharynx without lesions, exudates, or excessive erythema. Normal appearance of the external aspects of the nose and ears. Heart:?Regular rhythm, normal rate. No murmur. No lower extremity edema. Lungs:?Normal respiratory effort. Clear to auscultation bilaterally. No wheezes. No crackles. Abdomen:?Soft. Non-tender. Non-distended. No masses or abdominal hernia. Msk:?No digital cyanosis. Normal strength and tone in all 4 limbs. Skin:?Left thigh/leg ulcer with wound vac in place; wound appears with yellow sloughing, healthy granulation tissue, no odor, no cellulitic changes, good epithelialization at the borders. Neuro:?Alert. No facial droop or slurred speech. Extra-ocular movements intact. Follows minimal commands. Psych:?Appropriate mood. Full affect. Oriented to person, place, time, and situation. Lines: Active Lines - Peripheral IV Line Diagnostic Studies: Available diagnostic studies were reviewed personally. Significant relevant results and findings are outlined below or addressed in the Assessment and Plan above. Pertinent Imaging: CT Head: - No acute intracranial findings. Chest CT: - Linear consolidation in the right major fissure/right lower lobe; possible atelectasis vs. pneumonia. CT Left Leg: - Large soft tissue defect in the lateral aspect of the upper thigh of the left leg with underlying fascia extending to the underlying tensor fascia naren muscle; no drainable fluid collection or osteomyelitis involvement. Renal Ultrasound: - 11 mm non-obstructive left lower pole kidney stone. Laboratory Results: - WBC decreased from 13.3 to 9.3. - Urinalysis: Pyuria 3+, leukocyte esterase 2+, nitrites positive. - Urine culture: Growth of E. coli sensitive to meropenem and ertapenem; resistant to Bactrim and fluoroquinolones. Plan discussed with: Patient LOULOU CONTE MD Oct 11, 2024 18:12"
--- NOTE | 2024-10-11 23:41 | DVHPN2 ---
Progress Note - Dictate Date Seen: Oct 11, 2024 Medical Necessity Reason Pt with a Central, PICC or Fol: No Subjective Patient seen and examined at bedside. Remains on supplemental oxygen Overnight events reviewed. vital signs Vital Sign Date Time Temp Pulse Resp B/P (MAP) Pulse Ox O2 Delivery O2 Flow Rate FiO2 10/11/24 22:37 61 20 118/68 10/11/24 21:00 97.9 94 97.9 10/11/24 20:00 Room Air* 0 21 Total Intake and Output 10/10/24 10/10/24 10/11/24 15:00 23:00 07:00 Intake Total 600 ml 500 ml Output Total 500 ml Balance 600 ml 0 ml medications Current Medications Medications Dose Ordered Sig/Sumanth Route Start Time Stop Time Status Last Admin Dose Admin Aspirin 81 mg DAILY PO 10/09/24 10:00 10/11/24 09:12 81 MG Gabapentin 400 mg TID PO 10/08/24 14:00 10/11/24 21:21 400 MG Sodium Chloride 10 ml Q8HR IV 10/08/24 14:00 10/11/24 21:28 10 ML Ondansetron HCl 4 mg Q4HP PRN IV 10/08/24 13:30 Docusate Sodium 100 mg BIDPRN PRN PO 10/08/24 13:30 Acetaminophen 650 mg Q6HP PRN PO 10/08/24 13:30 Multivitamins 1 tab DAILY PO 10/09/24 10:00 10/11/24 09:12 1 TAB Nitroglycerin 0.4 mg Q5MINP PRN SL 10/08/24 16:30 Morphine Sulfate 2 mg Q30M PRN IV 10/08/24 16:30 10/11/24 22:37 2 MG Acetaminophen/ Hydrocodone Bitart 1 tab Q6HP PRN PO 10/08/24 20:30 10/11/24 21:26 1 TAB Albuterol 2.5 mg Q6HWA NEB 10/09/24 18:00 10/11/24 19:38 2.5 MG Ipratropium [place] 0.5 mg Q6HWA NEB 10/09/24 18:00 10/11/24 19:38 0.5 MG Vancomycin HCl 0 ml @ 0 mls/hr UD IV 10/09/24 14:30 Ertapenem 1 gm/ Sodium Chloride 50 ml @ 100 mls/hr DAILY IV 10/10/24 18:00 10/11/24 09:11 100 MLS/HR Pantoprazole Sodium 40 mg DAILY@0600 PO 10/11/24 06:00 10/11/24 05:32 40 MG Zolpidem Tartrate 10 mg HSPRN PRN PO 10/10/24 22:15 10/11/24 22:35 10 MG Morphine Sulfate 2 mg Q6HPRN PRN IV 10/11/24 11:15 10/11/24 11:52 2 MG Vancomycin HCl 250 ml @ 250 mls/hr Q10H IV 10/12/24 09:00 objective Gen.: Patient lying in bed in no apparent distress. On supplemental oxygen. Head: Normocephalic, atraumatic. Eyes: EOMI/PERRLA. Ears: Normal hearing. Normal anatomy. Neck/trachea: Trachea midline, supple. Nose: Normal external anatomy. Mouth: Moist mucous membranes. Chest: Decreased air entry bilaterally. No wheezing or rhonchi. Cardiovascular: Positive S1, positive S2. Regular rate and rhythm. Abdomen: Positive bowel sounds in all 4 quadrants. Soft, non-tender, non- distended. : Deferred. Rectal: Deferred. Skin: Warm, dry. Intact. Extremities: 2+ radial pulses bilaterally. No lower extremity edema. Neuro: Awake, alert, oriented x3. No gross motor or sensory deficits. Cranial nerves II through XII intact. Gait not assessed. laboratory and microbiology Laboratory Tests 10/11/24 04:38 10/10/24 04:27 Test 10/11/24 04:38 Range/Units Serum Glucose 92 74-106 mg/dL Assessment/Plan Impression: Acute hypoxic respiratory failure Dependence on supplemental oxygen Pneumonia, likely gram negative Atelectasis Obesity, BMI 32.1 Events: Remains on supplemental oxygen, 3 LPM NC Taper O2 as tolerated Continue bronchodilators Continue antibiotics Incentive spirometry Renal ultrasound revealed 11 mm nonobstructive left lower kidney stone. Continue pain control Avoid oversedation Labs and imaging reviewed. Rest of plan as noted below. Plan: Supplemental oxygen Titrate to keep O2 sats above 92%. Continue bronchodilators. Continue antibiotics Incentive spirometry Pain control Avoid oversedation Monitor renal function. Monitor electrolytes. Supplement as necessary. Monitor ins and outs. Potassium supplementation Diet and lifestyle modifications for weight reduction Obesity - complicates all care GI prophylaxis - Pepcid DVT prophylaxis. Prognosis: Poor given patient's multiple co-morbidities. Rest of plan per hospitalist and other consultants. Thank you, GENNY Paredes, for allowing me to participate in this patient's care. Further recommendations will depend on the patient's clinical course. Please do not hesitate to contact me if you have any questions or concerns. This medical document was created using an electronic medical record system with Aspyra dictation system. Although these documentations are being carefully reviewed, there may still be some phonetic and typographical changes. The errors are purely typographical, due to imperfection on the software program, and do not reflect any compromise in the patient's medical care. Dietary Evaluation Review Comments: 1) Shaka 1 pk BID 2) Continue current plan of care Expected Outcomes/Goals: Pt will meet >75% estimated needs Fu 3-5 days Plan discussed with: Patient, Other (WADE Rao) SHERI CALIXTO MD Oct 11, 2024 23:41
[2024-10-12] VITALS (14 sets, daily range): BP systolic 116–137; BP diastolic 66–75; PULSE 57–86; RESP 17–20; TEMP 97.5–98.8; O2SAT 92–100
[2024-10-12 05:58] LABS: Sodium 143 mmol/L (136-145)
[2024-10-12 05:59] LABS: Anion Gap 8 (5-15)
[2024-10-12 06:00] LABS: Calcium 9.7 mg/dL (8.7-10.4)
[2024-10-12 06:04] LABS: BUN/Creatinine Ratio 13.8 (10.0-20.0); Glucose 81 mg/dL (74-106)
[2024-10-12 06:08] LABS: Blood Urea Nitrogen 8 mg/dL (9-23); Carbon Dioxide 19 mmol/L (20-31); Chloride 116 mmol/L (98-107)
[2024-10-12 09:07] LABS: Basophils # (auto) 0.1 10 ^3/uL (0-0.2); Basophils % (auto) 0.6 % (0.0-2.0); Eosinophils # (auto) 0.4 10 ^3/uL (0-0.8); Eosinophils % (auto) 4.2 % (0.0-7.0); Hematocrit 38.6 % (36.0-46.0); Hemoglobin 12.8 g/dL (12.2-16.2); Lymphocytes # (auto) 1.9 10 ^3/uL (0.4-5.4); Lymphocytes % (auto) 20.8 % (10.0-50.0); Mean Corpuscular Hemoglobin 31.5 pg (28.0-32.0); Mean Corpuscular Hgb Conc. 33.1 g/dL (32.0-36.0); Mean Corpuscular Volume 95.1 fL (80.0-100.0); Monocytes # (auto) 0.6 10 ^3/uL (0-1.3); Monocytes % (auto) 6.5 % (0.0-12.0); Neutrophils # (auto) 6.3 10 ^3/uL (1.6-8.6); Neutrophils % (auto) 67.9 % (37.0-80.0); Nucleated Red Blood Cells % 0.1 %; Platelet Count (auto) 210 10^3/uL (140-450); Red Blood Cells 4.06 10^6/uL (4.0-5.20); Red Cell Distribution Width 14.2 % (11.8-14.3); White Blood Cell 9.3 10^3/uL (4.4-10.8)
[2024-10-12] MEDS: VANCOMYCIN 1GM/250ML KIT 250 ML IV SCH (09:35)
--- NOTE | 2024-10-12 14:18 | DVHPN2 ---
Subjective The patient is seen and examined at bedside. The patient denied any pain or headache today. Reviewed: Care Plan, H&P, Labs, Medications Changes from previous H/P or p: No Changes General: Per HPI Eyes: No Pain, No Vision change, No Conjunctivae inflammation, No Eyelid inflammation, No Other, No Redness ENT: No Ear pain, No Ear discharge, No Nose pain, No Nose discharge, No Nose congestion, No Mouth pain, No Mouth swelling, No Throat pain, No Throat swelling, No Other Cardiovascular: No Chest Pain, No Palpitations, No Orthopnea, No Paroxysmal Noc. Dyspnea, No Edema, No Lt Headedness, No Other Respiratory: No Cough, No Dry; Shortness of breath; No SOB with excertion, No Wheezing, No Hemoptysis, No Pleuritic Pain, No Sputum, No Other Gastrointestinal: No Nausea, No Vomiting, No Abdominal Pain, No Diarrhea, No Constipation, No Melena, No Hematochezia, No Other Genitourinary: No Dysuria, No Frequency, No Incontinence, No Hematuria, No Retention, No Other Musculoskeletal: No other, No neck pain, No shoulder pain, No arm pain, No back pain, No hand pain, No leg pain, No foot pain Skin: No Rash, No Lesions, No Jaundice, No Bruising; Other (Left leg wound VAC) Objective Vitals Vital Signs Date Time Temp Pulse Resp B/P (MAP) Pulse Ox O2 Delivery O2 Flow Rate FiO2 10/12/24 12:57 60 17 123/72 10/12/24 12:41 97.5 92 97.5 10/12/24 11:25 Room Air* 0 21 Intake/Output Intake and Output 10/12/24 07:00 Intake Total 850 ml Balance 850 ml Intake Oral 800 ml IV Total 50 ml # Voids 6 General Appearance: Alert, Oriented X3, Cooperative, No acute distress HEENT: Atraumatic, PERRLA Lungs: Clear to auscultation, Normal air movement Cardiovascular: Normal S1, Normal S2 Abdomen: Normal bowel sounds, Soft, No tenderness Genitourinary: No Apparent Abnormalities Musculoskeletal: Normal sensory function, Normal motor function Neuro: Normal speech, Cranial nerves 3-12 NL Skin: Dry, Intact Psych/Mental Status: Mental status NL, Mood NL Medications Current Medications Medications Dose Ordered Sig/Sumanth Route Start Time Stop Time Status Last Admin Dose Admin Aspirin 81 mg DAILY PO 10/09/24 10:00 10/12/24 09:35 81 MG Gabapentin 400 mg TID PO 10/08/24 14:00 10/12/24 06:10 400 MG Sodium Chloride 10 ml Q8HR IV 10/08/24 14:00 10/12/24 06:15 10 ML Ondansetron HCl 4 mg Q4HP PRN IV 10/08/24 13:30 Docusate Sodium 100 mg BIDPRN PRN PO 10/08/24 13:30 Acetaminophen 650 mg Q6HP PRN PO 10/08/24 13:30 Multivitamins 1 tab DAILY PO 10/09/24 10:00 10/12/24 09:35 1 TAB Nitroglycerin 0.4 mg Q5MINP PRN SL 10/08/24 16:30 Morphine Sulfate 2 mg Q30M PRN IV 10/08/24 16:30 10/12/24 06:11 2 MG Acetaminophen/ Hydrocodone Bitart 1 tab Q6HP PRN PO 10/08/24 20:30 10/12/24 09:54 1 TAB Albuterol 2.5 mg Q6HWA NEB 10/09/24 18:00 10/12/24 11:25 2.5 MG Ipratropium [place] 0.5 mg Q6HWA NEB 10/09/24 18:00 10/12/24 11:25 0.5 MG Vancomycin HCl 0 ml @ 0 mls/hr UD IV 10/09/24 14:30 Ertapenem 1 gm/ Sodium Chloride 50 ml @ 100 mls/hr DAILY IV 10/10/24 18:00 10/12/24 11:34 100 MLS/HR Pantoprazole Sodium 40 mg DAILY@0600 PO 10/11/24 06:00 10/12/24 06:10 40 MG Zolpidem Tartrate 10 mg HSPRN PRN PO 10/10/24 22:15 10/11/24 22:35 10 MG Morphine Sulfate 2 mg Q6HPRN PRN IV 10/11/24 11:15 10/12/24 12:57 2 MG Vancomycin HCl 250 ml @ 250 mls/hr Q10H IV 10/12/24 09:00 10/12/24 09:35 250 MLS/HR Laboratory Results Laboratory Tests 10/12/24 04:39 10/12/24 08:49 Chemistry Test 10/12/24 04:39 Calcium Level 9.7 mg/dL (8.7-10.4) Urinalysis Test 10/08/24 10:26 Urine Color Colorless (Yellow) Urine Clarity Turbid (Clear) H Urine pH 6.0 (5.0-9.0) Urine Specific [place] 1.014 (1.001-1.035) Urine Protein Trace (Negative) H Urine Ketones Negative (Negative) Urine Blood 1+ /uL (Negative) H Urine Nitrite 2+ (Negative) H Urine Bilirubin Negative (Negative) Urine Urobilinogen Normal mg/dL (Negative) Urine Leukocyte Esterase 3+ /uL (Negative) Urine RBC 12 /hpf (0 - 4) Urine Microscopic WBC 1494 /HPF (0-5) H Urine Squamous Epithelial Cells None seen /hpf (<5) Urine Bacteria Few /hpf (None Seen) H Urine Glucose Normal mg/dL (Normal) Microbiology Microbiology Date/Time Source Procedure Growth Status 10/09/24 15:56 Hip Left Gram Stain - Final Resulted 10/09/24 15:56 Hip Left Wound Culture - Preliminary Resulted 10/08/24 11:29 Blood Blood Culture - Preliminary NO GROWTH AFTER 72 HOURS OF INCUBATION. Resulted 10/08/24 10:26 Urine - [place] Urine Culture - Final Escherichia coli - ESBL Complete Labs and/or images reviewed: Labs reviewed by me Assessment/Plan Assessment/Plan -acute hypoxic respiratory failure -sepsis -metabolic encephalopathy -pneumonia, probable aspiration etiology -complicated cystitis with Gram-negative rods -left hip abscess? , status post surgery -obesity -primary hypertension -acute on chronic diastolic heart failure Plan: Plan: Continuing current management. Continuing with Invanz. Continuing with wound care. We will follow up with culture. Discharge planning with resume home health for wound care and IV antibiotic. Continuing with pain medication. Continuing with bronchodilators, Pulmicort This medical document was created using an electronic medical record system with M[employer] flurenTunepresto direct computerized dictation system. Although this document has been carefully reviewed, there may still be some phonetic and typographical errors. These areas are purely typographical due to imperfections of the software programs, and do not reflect any compromise in the patient's medical care. Plan discussed with: Patient Date of Service: Oct 12, 2024 Billing Provider: XIMENA HOGUE MD Common Visit Codes: [id number] INP/OBS CARE(HIGH) XIMENA HOGUE MD Oct 12, 2024 14:18
--- NOTE | 2024-10-12 19:07 | DVHPN2 ---
Progress Note - Dictate Date Seen: Oct 12, 2024 Medical Necessity Reason Pt with a Central, PICC or Fol: No Subjective Patient seen and examined at bedside. Breathing comfortably on room air Overnight events reviewed. vital signs Vital Sign Date Time Temp Pulse Resp B/P (MAP) Pulse Ox O2 Delivery O2 Flow Rate FiO2 10/12/24 18:59 85 18 126/73 10/12/24 18:20 100 10/12/24 18:11 Room Air 10/12/24 18:11 0 21 10/12/24 17:19 97.6 97.6 Total Intake and Output 10/11/24 10/11/24 10/12/24 15:00 23:00 07:00 Intake Total 50 ml 800 ml Balance 50 ml 800 ml medications Current Medications Medications Dose Ordered Sig/Sumanth Route Start Time Stop Time Status Last Admin Dose Admin Aspirin 81 mg DAILY PO 10/09/24 10:00 10/12/24 09:35 81 MG Gabapentin 400 mg TID PO 10/08/24 14:00 10/12/24 15:57 400 MG Sodium Chloride 10 ml Q8HR IV 10/08/24 14:00 10/12/24 14:00 10 ML Ondansetron HCl 4 mg Q4HP PRN IV 10/08/24 13:30 Docusate Sodium 100 mg BIDPRN PRN PO 10/08/24 13:30 Acetaminophen 650 mg Q6HP PRN PO 10/08/24 13:30 Multivitamins 1 tab DAILY PO 10/09/24 10:00 10/12/24 09:35 1 TAB Nitroglycerin 0.4 mg Q5MINP PRN SL 10/08/24 16:30 Morphine Sulfate 2 mg Q30M PRN IV 10/08/24 16:30 10/12/24 06:11 2 MG Acetaminophen/ Hydrocodone Bitart 1 tab Q6HP PRN PO 10/08/24 20:30 10/12/24 15:57 1 TAB Albuterol 2.5 mg Q6HWA NEB 10/09/24 18:00 10/12/24 18:16 2.5 MG Ipratropium [place] 0.5 mg Q6HWA NEB 10/09/24 18:00 10/12/24 18:16 0.5 MG Vancomycin HCl 0 ml @ 0 mls/hr UD IV 10/09/24 14:30 Ertapenem 1 gm/ Sodium Chloride 50 ml @ 100 mls/hr DAILY IV 10/10/24 18:00 10/12/24 11:34 100 MLS/HR Pantoprazole Sodium 40 mg DAILY@0600 PO 10/11/24 06:00 10/12/24 06:10 40 MG Zolpidem Tartrate 10 mg HSPRN PRN PO 10/10/24 22:15 10/11/24 22:35 10 MG Morphine Sulfate 2 mg Q6HPRN PRN IV 10/11/24 11:15 10/12/24 18:59 2 MG Vancomycin HCl 250 ml @ 250 mls/hr Q10H IV 10/12/24 09:00 10/12/24 09:35 250 MLS/HR objective Gen.: Patient lying in bed in no apparent distress. On room air. Head: Normocephalic, atraumatic. Eyes: EOMI/PERRLA. Ears: Normal hearing. Normal anatomy. Neck/trachea: Trachea midline, supple. Nose: Normal external anatomy. Mouth: Moist mucous membranes. Chest: Decreased air entry bilaterally. No wheezing or rhonchi. Cardiovascular: Positive S1, positive S2. Regular rate and rhythm. Abdomen: Positive bowel sounds in all 4 quadrants. Soft, non-tender, non- distended. : Deferred. Rectal: Deferred. Skin: Warm, dry. Intact. Extremities: 2+ radial pulses bilaterally. No lower extremity edema. Neuro: Awake, alert, oriented x3. No gross motor or sensory deficits. Cranial nerves II through XII intact. Gait not assessed. laboratory and microbiology Laboratory Tests 10/12/24 08:49 10/12/24 04:39 Test 10/12/24 04:39 Range/Units Serum Glucose 81 74-106 mg/dL Assessment/Plan Impression: Acute hypoxic respiratory failure Dependence on supplemental oxygen Pneumonia, likely gram negative Atelectasis Obesity, BMI 32.1 Events: Currently on room air Supplemental oxygen PRN Continue bronchodilators Continue antibiotics Incentive spirometry Disposition per hospitalist Assess for O2 requirements prior to discharge Labs and imaging reviewed. Rest of plan as noted below. Plan: Supplemental oxygen PRN Titrate to keep O2 sats above 92%. Continue bronchodilators. Continue antibiotics Incentive spirometry Pain control Avoid oversedation Monitor renal function. Monitor electrolytes. Supplement as necessary. Monitor ins and outs. Potassium supplementation Diet and lifestyle modifications for weight reduction Obesity - complicates all care GI prophylaxis - Pepcid DVT prophylaxis. Prognosis: Poor given patient's multiple co-morbidities. Rest of plan per hospitalist and other consultants. Thank you, GENNY Paredes, for allowing me to participate in this patient's care. Further recommendations will depend on the patient's clinical course. Please do not hesitate to contact me if you have any questions or concerns. This medical document was created using an electronic medical record system with [employer] dictation system. Although these documentations are being carefully reviewed, there may still be some phonetic and typographical changes. The errors are purely typographical, due to imperfection on the software program, and do not reflect any compromise in the patient's medical care. Dietary Evaluation Review Comments: 1) Shaka 1 pk BID 2) Continue current plan of care Expected Outcomes/Goals: Pt will meet >75% estimated needs Fu 3-5 days Plan discussed with: Patient, Other (WADE Rao) SHERI CALIXTO MD Oct 12, 2024 19:07
--- NOTE | 2024-10-12 19:49 | DVHPN2 ---
Progress Note - Dictate Date Seen: Oct 12, 2024 Medical Necessity Reason Pt with a Central, PICC or Fol: No vital signs Vital Sign Date Time Temp Pulse Resp B/P (MAP) Pulse Ox O2 Delivery O2 Flow Rate FiO2 10/12/24 19:29 85 18 120/75 10/12/24 18:20 100 10/12/24 18:11 Room Air 10/12/24 18:11 0 21 10/12/24 17:19 97.6 97.6 Total Intake and Output 10/11/24 10/11/24 10/12/24 15:00 23:00 07:00 Intake Total 50 ml 800 ml Balance 50 ml 800 ml medications Current Medications Medications Dose Ordered Sig/Sumanth Route Start Time Stop Time Status Last Admin Dose Admin Aspirin 81 mg DAILY PO 10/09/24 10:00 10/12/24 09:35 81 MG Gabapentin 400 mg TID PO 10/08/24 14:00 10/12/24 15:57 400 MG Sodium Chloride 10 ml Q8HR IV 10/08/24 14:00 10/12/24 14:00 10 ML Ondansetron HCl 4 mg Q4HP PRN IV 10/08/24 13:30 Docusate Sodium 100 mg BIDPRN PRN PO 10/08/24 13:30 Acetaminophen 650 mg Q6HP PRN PO 10/08/24 13:30 Multivitamins 1 tab DAILY PO 10/09/24 10:00 10/12/24 09:35 1 TAB Nitroglycerin 0.4 mg Q5MINP PRN SL 10/08/24 16:30 Morphine Sulfate 2 mg Q30M PRN IV 10/08/24 16:30 10/12/24 06:11 2 MG Acetaminophen/ Hydrocodone Bitart 1 tab Q6HP PRN PO 10/08/24 20:30 10/12/24 15:57 1 TAB Albuterol 2.5 mg Q6HWA NEB 10/09/24 18:00 10/12/24 18:16 2.5 MG Ipratropium [place] 0.5 mg Q6HWA NEB 10/09/24 18:00 10/12/24 18:16 0.5 MG Vancomycin HCl 0 ml @ 0 mls/hr UD IV 10/09/24 14:30 Ertapenem 1 gm/ Sodium Chloride 50 ml @ 100 mls/hr DAILY IV 10/10/24 18:00 10/12/24 11:34 100 MLS/HR Pantoprazole Sodium 40 mg DAILY@0600 PO 10/11/24 06:00 10/12/24 06:10 40 MG Zolpidem Tartrate 10 mg HSPRN PRN PO 10/10/24 22:15 10/11/24 22:35 10 MG Morphine Sulfate 2 mg Q6HPRN PRN IV 10/11/24 11:15 10/12/24 18:59 2 MG Vancomycin HCl 250 ml @ 250 mls/hr Q10H IV 10/12/24 09:00 10/12/24 19:24 250 MLS/HR laboratory and microbiology Laboratory Tests 10/12/24 08:49 10/12/24 04:39 Test 10/12/24 04:39 Range/Units Serum Glucose 81 74-106 mg/dL Assessment/Plan Assessment/Plan Patient is a 59 year old female who presented to the hospital with altered mental status. Reportedly, the patient was found to be altered when she woke up yesterday morning. She has been managed in hospital with encephalopathy/sepsis. She was found to have pneumonia and UTI. Cardiology is involved for cardiac aspects of care. It was of note that the patient is on outpatient antibiotic therapy for left hip wound which is on wound VAC also. She follows with primary (Dr. Barkley) and Infectious Disease as outpatient. Patient denies chest pain/palpitations. She is known to our practice from outside. Obese female, lying flat in bed. No JVD. Mucosa is pink. She is on supplemental nasal cannula oxygen. Not using accessory muscles of breathing. Scattered rhonchi/Rales in the lungs is heard. Cardiac: Regular, no thrill/gallop. Abdomen is soft and obese. No gross mass. Extremities reveal 1+ edema bilaterally. There is a wound VAC to an ulcer in the lateral left upper hip. Past medical history includes morbid obesity, status post bariatric surgery and some weight loss, COPD/asthma, obstructive sleep apnea, hypertension, hyperlipidemia, depression, anxiety, kidney stone, gout, active smoker and history of /tonsillectomy/cholecystectomy/Carpal tunnel surgery/ spinal tap. Does have history of spider ulcer with cellulitis on wound VAC in the left upper lateral hip. Family history includes brother with CABG. Echocardiogram of February 2024 revealed ejection fraction of 55% and right ventricular systolic pressure 37 mm Hg Left heart catheterization of January 18, 2023 (performed in [facility]) revealed nonobstructive coronary artery disease, mid RCA with 60% smooth lesion (IFR was negative for significant hemodynamic disease), ejection fraction of 55% WBC: 13.3 - 13.4 - 10.4 - 9.3 - 8.6 Creatinine: 1.16 - 0.63 - 0.68 - 0.56 - 0.55 Potassium: 3.9 - 2.8 - 3.5 - 3.3 - 4.0 Sodium: 148 - 149 - 147 - 144 - 143 BNP: 171.18 Troponin (high sensitive): 6 LDL: 83 Urinalysis revealed turbid urine with increased WBC Urine culture is positive Chest x-ray revealed: IMPRESSION: Right lung volume loss with near complete opacification of the right hemithorax. Small right pleural effusion. CT of the head revealed: IMPRESSION: No acute intracranial findings. CT of the chest reviewed: FINDINGS: LUNGS AND PLEURAL SPACES: Linear consolidation along the right major fissure and right lower lobe could be atelectasis and/or pneumonia. No significant effusion. HEART: Unremarkable. No cardiomegaly. No significant pericardial effusion. No significant coronary artery calcifications. MEDIASTINUM: Pleural mediastinal lymph nodes. BONES/JOINTS: Unremarkable. No acute fracture. No dislocation. SOFT TISSUES: Unremarkable. VASCULATURE: Scattered calcified atherosclerotic disease of aorta. No thoracic aortic aneurysm. LYMPH NODES: See above. OTHER FINDINGS: . . IMPRESSION: Linear consolidation along the right major fissure and right lower lobe could be atelectasis and/or pneumonia. CT of the lower extremities reveal: Technique: Axial images left femur were obtained and reformatted in coronal and sagittal planes. All CT scans at this medical facility are performed using dose modulation techniques as appropriate to a performed exam including the following: Automated exposure control was utilized; adjustment of the MA and/or KV according to patient size; and use of iterative reconstruction technique. CT Dose: CTDI volume is 24, 19 mGy. Dose- length product is 2230 mGy*cm FINDINGS: Bones: No acute fracture or dislocation. Joint spaces are maintained. No cortical erosion or lytic osseous lesion. Soft tissues: A soft tissue defect is seen in the lateral aspect of the upper thigh at the level of femoral greater trochanter. No drainable fluid collection is seen. The defect extends to the underlying tensor fascia naren muscle but does not extend to the underlying bone. Other: A Acevedo catheter is seen in the bladder. Sigmoid diverticulosis noted. IMPRESSION: 1. Large soft tissue defect on the lateral aspect of the upper thigh extending to underlying tensor fascia naren muscle. No drainable fluid collection. No osseous involvement. EKG reveals sinus rhythm, PVC and no specific ST-T changes Tele reveals sinus rhythm Echocardiogram revealed: Left ventricle: LVEF was around 55%. There was no gross wall motion abnormality. Diastolic function was considered normal. Right ventricle was normal-sized with normal systolic function. Both atria were normal-sized. Aortic valve was not well visualized. There was no aortic insufficiency/stenosis. There was trace mitral/tricuspid regurgitation. Pulmonary valve was not well visualized. Right ventricular systolic pressure was assessed at 40 mm Hg. There was no pericardial effusion. Patient is a 59-year-old female who presented with altered mental status. Presentation is in favor of encephalopathy which quetiapine metabolic/septic secondary to UTI/pneumonia. Cardiac etiology for presentation is less likely. Does have history of coronary artery disease and with negative FFR of RCA. Acute coronary syndrome is not considered. Encephalopathy, metabolic/septic Altered mental status UTI Pneumonia, community-acquired Morbid obesity Status post with loss surgery Cellulitis of lower extremity Hypertension Hyperlipidemia Obstructive sleep apnea Cardiac suggestion for management: Manage on telemetry Follow-up electrolytes and kidney function test and correct abnormalities, keep potassium above 4 magnesium above 2 Continue 81 mg Aspirin daily Evaluation and management of UTI/sepsis aspirin primary team Pulmonary follow up Further evaluation and management depends on the above and clinical course A total of 55 minutes was spent reviewing the patient record, examining the patient, making a diagnostic and therapeutic plan, discussing this plan with medical personnel, following up on diagnostic studies and following the patient for clinical stability excluding any and all procedures. At least 50% of this time was spent in direct, [id number] contact. Thank you for allowing me to participate in this patient's care. Further recommendations will depend on patient's clinical course. Please do not hesitate to contact me if you have any questions or concerns. This medical document was created using electronic medical record system with [employer] dictation system. Although this document has been carefully reviewed, there may still be some phonetic and typographical errors. These areas are purely typographical due to the imperfection of the software programs, and do not reflect any compromise in the patient's medical care. Dietary Evaluation Review Comments: 1) Shaka 1 pk BID 2) Continue current plan of care Expected Outcomes/Goals: Pt will meet >75% estimated needs Fu 3-5 days Plan discussed with: Patient (Patient and Primary RN ) ELAYNE CULP Oct 12, 2024 19:49
[2024-10-13] VITALS (15 sets, daily range): BP systolic 102–133; BP diastolic 52–77; PULSE 55–74; RESP 16–20; TEMP 97.2–98; O2SAT 90–100
--- NOTE | 2024-10-13 06:46 | DVHPN2 ---
Progress Note - Dictate Date Seen: Oct 13, 2024 Medical Necessity Reason Pt with a Central, PICC or Fol: No vital signs Vital Sign Date Time Temp Pulse Resp B/P (MAP) Pulse Ox O2 Delivery O2 Flow Rate FiO2 10/13/24 05:00 97.7 59 20 121/70 (87) 90 97.7 10/12/24 20:00 Room Air* 3 N/A Nasal Cannula* Total Intake and Output 10/12/24 10/12/24 10/13/24 15:00 23:00 07:00 Intake Total 100 ml 1050 ml Balance 100 ml 1050 ml medications Current Medications Medications Dose Ordered Sig/Sumanth Route Start Time Stop Time Status Last Admin Dose Admin Aspirin 81 mg DAILY PO 10/09/24 10:00 10/12/24 09:35 81 MG Gabapentin 400 mg TID PO 10/08/24 14:00 10/13/24 06:32 400 MG Sodium Chloride 10 ml Q8HR IV 10/08/24 14:00 10/13/24 06:34 10 ML Ondansetron HCl 4 mg Q4HP PRN IV 10/08/24 13:30 Docusate Sodium 100 mg BIDPRN PRN PO 10/08/24 13:30 Acetaminophen 650 mg Q6HP PRN PO 10/08/24 13:30 Multivitamins 1 tab DAILY PO 10/09/24 10:00 10/12/24 09:35 1 TAB Nitroglycerin 0.4 mg Q5MINP PRN SL 10/08/24 16:30 Morphine Sulfate 2 mg Q30M PRN IV 10/08/24 16:30 10/12/24 06:11 2 MG Acetaminophen/ Hydrocodone Bitart 1 tab Q6HP PRN PO 10/08/24 20:30 10/13/24 04:10 1 TAB Albuterol 2.5 mg Q6HWA NEB 10/09/24 18:00 10/12/24 18:16 2.5 MG Ipratropium [place] 0.5 mg Q6HWA NEB 10/09/24 18:00 10/12/24 18:16 0.5 MG Vancomycin HCl 0 ml @ 0 mls/hr UD IV 10/09/24 14:30 Ertapenem 1 gm/ Sodium Chloride 50 ml @ 100 mls/hr DAILY IV 10/10/24 18:00 10/12/24 11:34 100 MLS/HR Pantoprazole Sodium 40 mg DAILY@0600 PO 10/11/24 06:00 10/13/24 06:32 40 MG Zolpidem Tartrate 10 mg HSPRN PRN PO 10/10/24 22:15 10/12/24 21:58 10 MG Morphine Sulfate 2 mg Q6HPRN PRN IV 10/11/24 11:15 10/13/24 02:05 2 MG Vancomycin HCl 250 ml @ 250 mls/hr Q10H IV 10/12/24 09:00 10/12/24 19:24 250 MLS/HR laboratory and microbiology Laboratory Tests 10/12/24 08:49 10/12/24 04:39 Test 10/12/24 04:39 Range/Units Serum Glucose 81 74-106 mg/dL Assessment/Plan Assessment/Plan Patient is a 59 year old female who presented to the hospital with altered mental status. Reportedly, the patient was found to be altered when she woke up yesterday morning. She has been managed in hospital with encephalopathy/sepsis. She was found to have pneumonia and UTI. Cardiology is involved for cardiac aspects of care. It was of note that the patient is on outpatient antibiotic therapy for left hip wound which is on wound VAC also. She follows with primary (Dr. Barkley) and Infectious Disease as outpatient. Patient denies chest pain/palpitations. She is known to our practice from outside. Obese female, lying flat in bed. No JVD. Mucosa is pink. She is on supplemental nasal cannula oxygen. Not using accessory muscles of breathing. Scattered rhonchi/Rales in the lungs is heard. Cardiac: Regular, no thrill/gallop. Abdomen is soft and obese. No gross mass. Extremities reveal 1+ edema bilaterally. There is a wound VAC to an ulcer in the lateral left upper hip. Past medical history includes morbid obesity, status post bariatric surgery and some weight loss, COPD/asthma, obstructive sleep apnea, hypertension, hyperlipidemia, depression, anxiety, kidney stone, gout, active smoker and history of /tonsillectomy/cholecystectomy/Carpal tunnel surgery/ spinal tap. Does have history of spider ulcer with cellulitis on wound VAC in the left upper lateral hip. Family history includes brother with CABG. Echocardiogram of February 2024 revealed ejection fraction of 55% and right ventricular systolic pressure 37 mm Hg Left heart catheterization of January 18, 2023 (performed in [facility]) revealed nonobstructive coronary artery disease, mid RCA with 60% smooth lesion (IFR was negative for significant hemodynamic disease), ejection fraction of 55% WBC: 13.3 - 13.4 - 10.4 - 9.3 - 8.6 Creatinine: 1.16 - 0.63 - 0.68 - 0.56 - 0.55 Potassium: 3.9 - 2.8 - 3.5 - 3.3 - 4.0 Sodium: 148 - 149 - 147 - 144 - 143 BNP: 171.18 Troponin (high sensitive): 6 LDL: 83 Urinalysis revealed turbid urine with increased WBC Urine culture is positive Chest x-ray revealed: IMPRESSION: Right lung volume loss with near complete opacification of the right hemithorax. Small right pleural effusion. CT of the head revealed: IMPRESSION: No acute intracranial findings. CT of the chest reviewed: FINDINGS: LUNGS AND PLEURAL SPACES: Linear consolidation along the right major fissure and right lower lobe could be atelectasis and/or pneumonia. No significant effusion. HEART: Unremarkable. No cardiomegaly. No significant pericardial effusion. No significant coronary artery calcifications. MEDIASTINUM: Pleural mediastinal lymph nodes. BONES/JOINTS: Unremarkable. No acute fracture. No dislocation. SOFT TISSUES: Unremarkable. VASCULATURE: Scattered calcified atherosclerotic disease of aorta. No thoracic aortic aneurysm. LYMPH NODES: See above. OTHER FINDINGS: . . IMPRESSION: Linear consolidation along the right major fissure and right lower lobe could be atelectasis and/or pneumonia. CT of the lower extremities reveal: Technique: Axial images left femur were obtained and reformatted in coronal and sagittal planes. All CT scans at this medical facility are performed using dose modulation techniques as appropriate to a performed exam including the following: Automated exposure control was utilized; adjustment of the MA and/or KV according to patient size; and use of iterative reconstruction technique. CT Dose: CTDI volume is 24, 19 mGy. Dose- length product is 2230 mGy*cm FINDINGS: Bones: No acute fracture or dislocation. Joint spaces are maintained. No cortical erosion or lytic osseous lesion. Soft tissues: A soft tissue defect is seen in the lateral aspect of the upper thigh at the level of femoral greater trochanter. No drainable fluid collection is seen. The defect extends to the underlying tensor fascia naren muscle but does not extend to the underlying bone. Other: A Acevedo catheter is seen in the bladder. Sigmoid diverticulosis noted. IMPRESSION: 1. Large soft tissue defect on the lateral aspect of the upper thigh extending to underlying tensor fascia naren muscle. No drainable fluid collection. No osseous involvement. EKG reveals sinus rhythm, PVC and no specific ST-T changes Tele reveals sinus rhythm Echocardiogram revealed: Left ventricle: LVEF was around 55%. There was no gross wall motion abnormality. Diastolic function was considered normal. Right ventricle was normal-sized with normal systolic function. Both atria were normal-sized. Aortic valve was not well visualized. There was no aortic insufficiency/stenosis. There was trace mitral/tricuspid regurgitation. Pulmonary valve was not well visualized. Right ventricular systolic pressure was assessed at 40 mm Hg. There was no pericardial effusion. Patient is a 59-year-old female who presented with altered mental status. Presentation is in favor of encephalopathy which quetiapine metabolic/septic secondary to UTI/pneumonia. Cardiac etiology for presentation is less likely. Does have history of coronary artery disease and with negative FFR of RCA. Acute coronary syndrome is not considered. Encephalopathy, metabolic/septic Altered mental status UTI Pneumonia, community-acquired Morbid obesity Status post with loss surgery Cellulitis of lower extremity Hypertension Hyperlipidemia Obstructive sleep apnea Cardiac suggestion for management: Manage on telemetry Follow-up electrolytes and kidney function test and correct abnormalities, keep potassium above 4 magnesium above 2 Continue 81 mg Aspirin daily Evaluation and management of UTI/sepsis aspirin primary team Pulmonary follow up Further evaluation and management depends on the above and clinical course A total of 55 minutes was spent reviewing the patient record, examining the patient, making a diagnostic and therapeutic plan, discussing this plan with medical personnel, following up on diagnostic studies and following the patient for clinical stability excluding any and all procedures. At least 50% of this time was spent in direct, [id number] contact. Thank you for allowing me to participate in this patient's care. Further recommendations will depend on patient's clinical course. Please do not hesitate to contact me if you have any questions or concerns. This medical document was created using electronic medical record system with [employer] dictation system. Although this document has been carefully reviewed, there may still be some phonetic and typographical errors. These areas are purely typographical due to the imperfection of the software programs, and do not reflect any compromise in the patient's medical care. Dietary Evaluation Review Comments: 1) Shaka 1 pk BID 2) Continue current plan of care Expected Outcomes/Goals: Pt will meet >75% estimated needs Fu 3-5 days Plan discussed with: Patient (Patient and Primary RN ) ELAYNE CULP Oct 13, 2024 06:46
[2024-10-13 07:52] LABS: Basophils # (auto) 0 10 ^3/uL (0-0.2); Basophils % (auto) 0.4 % (0.0-2.0); Eosinophils # (auto) 0.5 10 ^3/uL (0-0.8); Eosinophils % (auto) 5.7 % (0.0-7.0); Hemoglobin 12.5 g/dL (12.2-16.2); Lymphocytes # (auto) 2.3 10 ^3/uL (0.4-5.4); Lymphocytes % (auto) 26.6 % (10.0-50.0); Mean Corpuscular Hemoglobin 31.3 pg (28.0-32.0); Mean Corpuscular Hgb Conc. 32.8 g/dL (32.0-36.0); Mean Corpuscular Volume 95.2 fL (80.0-100.0); Monocytes # (auto) 0.6 10 ^3/uL (0-1.3); Neutrophils # (auto) 5.2 10 ^3/uL (1.6-8.6); Neutrophils % (auto) 60.3 % (37.0-80.0); Nucleated Red Blood Cells % 0.1 %; Platelet Count (auto) 223 10^3/uL (140-450); Red Blood Cells 3.99 10^6/uL (4.0-5.20); Red Cell Distribution Width 14.2 % (11.8-14.3); White Blood Cell 8.6 10^3/uL (4.4-10.8)
[2024-10-13] MEDS: VANCOMYCIN 1GM/250ML KIT 250 ML IV SCH (10:15)
--- NOTE | 2024-10-13 23:04 | DVHPN2 ---
Subjective The patient is seen and examined at bedside. No complaint today. Reviewed: Care Plan, H&P, Labs, Medications Changes from previous H/P or p: No Changes General: Per HPI Eyes: No Pain, No Vision change, No Conjunctivae inflammation, No Eyelid inflammation, No Other, No Redness ENT: No Ear pain, No Ear discharge, No Nose pain, No Nose discharge, No Nose congestion, No Mouth pain, No Mouth swelling, No Throat pain, No Throat swelling, No Other Cardiovascular: No Chest Pain, No Palpitations, No Orthopnea, No Paroxysmal Noc. Dyspnea, No Edema, No Lt Headedness, No Other Respiratory: No Cough, No Dry; Shortness of breath; No SOB with excertion, No Wheezing, No Hemoptysis, No Pleuritic Pain, No Sputum, No Other Gastrointestinal: No Nausea, No Vomiting, No Abdominal Pain, No Diarrhea, No Constipation, No Melena, No Hematochezia, No Other Genitourinary: No Dysuria, No Frequency, No Incontinence, No Hematuria, No Retention, No Other Musculoskeletal: No other, No neck pain, No shoulder pain, No arm pain, No back pain, No hand pain, No leg pain, No foot pain Skin: No Rash, No Lesions, No Jaundice, No Bruising; Other (Left leg wound VAC) Objective Vitals Vital Signs Date Time Temp Pulse Resp B/P (MAP) Pulse Ox O2 Delivery O2 Flow Rate FiO2 10/13/24 21:00 97.9 74 18 133/77 (95) 94 97.9 10/13/24 19:54 Room Air* 3 N/A Nasal Cannula* Intake/Output Intake and Output 10/13/24 07:00 Intake Total 1150 ml Balance 1150 ml Intake Oral 800 ml IV Total 350 ml # Voids 10 # Bowel Movements 1 General Appearance: Alert, Oriented X3, Cooperative, No acute distress HEENT: Atraumatic, PERRLA Lungs: Clear to auscultation, Normal air movement Cardiovascular: Normal S1, Normal S2 Abdomen: Normal bowel sounds, Soft, No tenderness Genitourinary: No Apparent Abnormalities Musculoskeletal: Normal sensory function, Normal motor function Neuro: Normal speech, Cranial nerves 3-12 NL Skin: Dry, Intact Psych/Mental Status: Mental status NL, Mood NL Medications Current Medications Medications Dose Ordered Sig/Sumanth Route Start Time Stop Time Status Last Admin Dose Admin Aspirin 81 mg DAILY PO 10/09/24 10:00 10/13/24 08:27 81 MG Gabapentin 400 mg TID PO 10/08/24 14:00 10/13/24 20:32 400 MG Sodium Chloride 10 ml Q8HR IV 10/08/24 14:00 10/13/24 20:33 10 ML Ondansetron HCl 4 mg Q4HP PRN IV 10/08/24 13:30 Docusate Sodium 100 mg BIDPRN PRN PO 10/08/24 13:30 Acetaminophen 650 mg Q6HP PRN PO 10/08/24 13:30 Multivitamins 1 tab DAILY PO 10/09/24 10:00 10/13/24 08:27 1 TAB Nitroglycerin 0.4 mg Q5MINP PRN SL 10/08/24 16:30 Morphine Sulfate 2 mg Q30M PRN IV 10/08/24 16:30 10/13/24 20:35 2 MG Acetaminophen/ Hydrocodone Bitart 1 tab Q6HP PRN PO 10/08/24 20:30 10/13/24 22:36 1 TAB Albuterol 2.5 mg Q6HWA NEB 10/09/24 18:00 10/13/24 18:14 2.5 MG Ipratropium [place] 0.5 mg Q6HWA NEB 10/09/24 18:00 10/13/24 18:14 0.5 MG Vancomycin HCl 0 ml @ 0 mls/hr UD IV 10/09/24 14:30 Ertapenem 1 gm/ Sodium Chloride 50 ml @ 100 mls/hr DAILY IV 10/10/24 18:00 10/13/24 08:27 100 MLS/HR Pantoprazole Sodium 40 mg DAILY@0600 PO 10/11/24 06:00 10/13/24 06:32 40 MG Zolpidem Tartrate 10 mg HSPRN PRN PO 10/10/24 22:15 10/13/24 22:33 10 MG Morphine Sulfate 2 mg Q6HPRN PRN IV 10/11/24 11:15 10/13/24 02:05 2 MG Vancomycin HCl 250 ml @ 250 mls/hr Q10H IV 10/13/24 10:00 10/13/24 20:33 250 MLS/HR Laboratory Results Laboratory Tests 10/12/24 04:39 10/13/24 07:39 Urinalysis Test 10/08/24 10:26 Urine Color Colorless (Yellow) Urine Clarity Turbid (Clear) H Urine pH 6.0 (5.0-9.0) Urine Specific [place] 1.014 (1.001-1.035) Urine Protein Trace (Negative) H Urine Ketones Negative (Negative) Urine Blood 1+ /uL (Negative) H Urine Nitrite 2+ (Negative) H Urine Bilirubin Negative (Negative) Urine Urobilinogen Normal mg/dL (Negative) Urine Leukocyte Esterase 3+ /uL (Negative) Urine RBC 12 /hpf (0 - 4) Urine Microscopic WBC 1494 /HPF (0-5) H Urine Squamous Epithelial Cells None seen /hpf (<5) Urine Bacteria Few /hpf (None Seen) H Urine Glucose Normal mg/dL (Normal) Microbiology Microbiology Date/Time Source Procedure Growth Status 10/09/24 15:56 Hip Left Gram Stain - Final Resulted 10/09/24 15:56 Hip Left Wound Culture - Preliminary Resulted 10/08/24 11:29 Blood Blood Culture - Final NO GROWTH AFTER 5 DAYS OF INCUBATION. Complete 10/08/24 10:26 Urine - [place] Urine Culture - Final Escherichia coli - ESBL Complete Labs and/or images reviewed: Labs reviewed by me Assessment/Plan Assessment/Plan -acute hypoxic respiratory failure -sepsis -metabolic encephalopathy -pneumonia, probable aspiration etiology -complicated cystitis with Gram-negative rods -left hip abscess? , status post surgery -obesity -primary hypertension -acute on chronic diastolic heart failure Plan: Continuing current management. Continuing with physical therapy. Continuing with IV antibiotic, Invanz. Continuing with wound VAC. Continuing with wound care. Continuing hypertensive medication. Discharge planning. This medical document was created using an electronic medical record system with [employer] computerized dictation system. Although this document has been carefully reviewed, there may still be some phonetic and typographical errors. These areas are purely typographical due to imperfections of the software programs, and do not reflect any compromise in the patient's medical care. Plan discussed with: Patient, Spouse My Orders Orders - XIMENA HOGUE MD Procedure Category Date Status Time * Material Specialist CONS 10/13/24 Transmitted Consult 15:43 Date of Service: Oct 13, 2024 Billing Provider: XIMENA HOGUE MD Common Visit Codes: [id number] INP/OBS CARE(HIGH) XIMENA HOGUE MD Oct 13, 2024 23:04
--- NOTE | 2024-10-13 23:45 | DVHPN2 ---
Progress Note - Dictate Date Seen: Oct 13, 2024 Medical Necessity Reason Pt with a Central, PICC or Fol: No Subjective Patient seen and examined at bedside. Breathing comfortably on room air Overnight events reviewed. vital signs Vital Sign Date Time Temp Pulse Resp B/P (MAP) Pulse Ox O2 Delivery O2 Flow Rate FiO2 10/13/24 21:05 75 18 133/77 10/13/24 21:00 97.9 94 97.9 10/13/24 19:54 Room Air* 3 N/A Nasal Cannula* Total Intake and Output 10/12/24 10/12/24 10/13/24 15:00 23:00 07:00 Intake Total 100 ml 1050 ml Balance 100 ml 1050 ml medications Current Medications Medications Dose Ordered Sig/Sumanth Route Start Time Stop Time Status Last Admin Dose Admin Aspirin 81 mg DAILY PO 10/09/24 10:00 10/13/24 08:27 81 MG Gabapentin 400 mg TID PO 10/08/24 14:00 10/13/24 20:32 400 MG Sodium Chloride 10 ml Q8HR IV 10/08/24 14:00 10/13/24 20:33 10 ML Ondansetron HCl 4 mg Q4HP PRN IV 10/08/24 13:30 Docusate Sodium 100 mg BIDPRN PRN PO 10/08/24 13:30 Acetaminophen 650 mg Q6HP PRN PO 10/08/24 13:30 Multivitamins 1 tab DAILY PO 10/09/24 10:00 10/13/24 08:27 1 TAB Nitroglycerin 0.4 mg Q5MINP PRN SL 10/08/24 16:30 Morphine Sulfate 2 mg Q30M PRN IV 10/08/24 16:30 10/13/24 20:35 2 MG Acetaminophen/ Hydrocodone Bitart 1 tab Q6HP PRN PO 10/08/24 20:30 10/13/24 22:36 1 TAB Albuterol 2.5 mg Q6HWA NEB 10/09/24 18:00 10/13/24 18:14 2.5 MG Ipratropium [place] 0.5 mg Q6HWA NEB 10/09/24 18:00 10/13/24 18:14 0.5 MG Vancomycin HCl 0 ml @ 0 mls/hr UD IV 10/09/24 14:30 Ertapenem 1 gm/ Sodium Chloride 50 ml @ 100 mls/hr DAILY IV 10/10/24 18:00 10/13/24 08:27 100 MLS/HR Pantoprazole Sodium 40 mg DAILY@0600 PO 10/11/24 06:00 10/13/24 06:32 40 MG Zolpidem Tartrate 10 mg HSPRN PRN PO 10/10/24 22:15 10/13/24 22:33 10 MG Morphine Sulfate 2 mg Q6HPRN PRN IV 10/11/24 11:15 10/13/24 02:05 2 MG Vancomycin HCl 250 ml @ 250 mls/hr Q10H IV 10/13/24 10:00 10/13/24 20:33 250 MLS/HR objective Gen.: Patient lying in bed in no apparent distress. On room air. Head: Normocephalic, atraumatic. Eyes: EOMI/PERRLA. Ears: Normal hearing. Normal anatomy. Neck/trachea: Trachea midline, supple. Nose: Normal external anatomy. Mouth: Moist mucous membranes. Chest: Decreased air entry bilaterally. No wheezing or rhonchi. Cardiovascular: Positive S1, positive S2. Regular rate and rhythm. Abdomen: Positive bowel sounds in all 4 quadrants. Soft, non-tender, non- distended. : Deferred. Rectal: Deferred. Skin: Warm, dry. Intact. Extremities: 2+ radial pulses bilaterally. No lower extremity edema. Neuro: Awake, alert, oriented x3. No gross motor or sensory deficits. Cranial nerves II through XII intact. Gait not assessed. laboratory and microbiology Laboratory Tests 10/13/24 07:39 10/12/24 04:39 Test 10/12/24 04:39 Range/Units Serum Glucose 81 74-106 mg/dL Assessment/Plan Impression: Acute hypoxic respiratory failure Dependence on supplemental oxygen Pneumonia, likely gram negative Atelectasis Obesity, BMI 32.1 Events: Remains on room air Supplemental oxygen PRN Continue bronchodilators Continue antibiotics Incentive spirometry ID recommendations appreciated. Pain control Avoid oversedation Protonix for GI prophylaxis Disposition per hospitalist Assess for O2 requirements prior to discharge Labs and imaging reviewed. Rest of plan as noted below. Plan: Supplemental oxygen PRN Titrate to keep O2 sats above 92%. Continue bronchodilators. Continue antibiotics Incentive spirometry Pain control Avoid oversedation Monitor renal function. Monitor electrolytes. Supplement as necessary. Monitor ins and outs. Potassium supplementation Diet and lifestyle modifications for weight reduction Obesity - complicates all care GI prophylaxis - Pepcid DVT prophylaxis. Prognosis: Poor given patient's multiple co-morbidities. Rest of plan per hospitalist and other consultants. Thank you, GENNY Paredes, for allowing me to participate in this patient's care. Further recommendations will depend on the patient's clinical course. Please do not hesitate to contact me if you have any questions or concerns. This medical document was created using an electronic medical record system with [employer] dictation system. Although these documentations are being carefully reviewed, there may still be some phonetic and typographical changes. The errors are purely typographical, due to imperfection on the software program, and do not reflect any compromise in the patient's medical care. Dietary Evaluation Review Comments: 1) Shaka 1 pk BID 2) Continue current plan of care Expected Outcomes/Goals: Pt will meet >75% estimated needs Fu 3-5 days Plan discussed with: Patient, Other (WADE Ehruz) SHERI CALIXTO MD Oct 13, 2024 23:45
[2024-10-14] VITALS (10 sets, daily range): BP systolic 103–144; BP diastolic 50–78; PULSE 60–76; RESP 14–20; TEMP 36.6; O2SAT 93–98
--- NOTE | 2024-10-14 08:23 | DVHPN2 ---
Progress Note - Dictate Date Seen: Oct 14, 2024 Medical Necessity Reason Pt with a Central, PICC or Fol: No vital signs Vital Sign Date Time Temp Pulse Resp B/P (MAP) Pulse Ox O2 Delivery O2 Flow Rate FiO2 10/14/24 07:08 67 14 98 10/14/24 07:01 Room Air* 0 21 10/14/24 05:00 97.8 103/50 (67) 97.8 Total Intake and Output 10/13/24 10/13/24 10/14/24 15:00 23:00 07:00 Intake Total 300 ml 890 ml 1050 ml Output Total 700 ml 600 ml Balance 300 ml 190 ml 450 ml medications Current Medications Medications Dose Ordered Sig/Sumanth Route Start Time Stop Time Status Last Admin Dose Admin Aspirin 81 mg DAILY PO 10/09/24 10:00 10/13/24 08:27 81 MG Gabapentin 400 mg TID PO 10/08/24 14:00 10/14/24 05:41 400 MG Sodium Chloride 10 ml Q8HR IV 10/08/24 14:00 10/14/24 05:47 10 ML Ondansetron HCl 4 mg Q4HP PRN IV 10/08/24 13:30 Docusate Sodium 100 mg BIDPRN PRN PO 10/08/24 13:30 Acetaminophen 650 mg Q6HP PRN PO 10/08/24 13:30 Multivitamins 1 tab DAILY PO 10/09/24 10:00 10/13/24 08:27 1 TAB Nitroglycerin 0.4 mg Q5MINP PRN SL 10/08/24 16:30 Morphine Sulfate 2 mg Q30M PRN IV 10/08/24 16:30 10/14/24 02:40 2 MG Acetaminophen/ Hydrocodone Bitart 1 tab Q6HP PRN PO 10/08/24 20:30 10/14/24 04:36 1 TAB Albuterol 2.5 mg Q6HWA NEB 10/09/24 18:00 10/14/24 07:00 2.5 MG Ipratropium [place] 0.5 mg Q6HWA NEB 10/09/24 18:00 10/14/24 07:00 0.5 MG Vancomycin HCl 0 ml @ 0 mls/hr UD IV 10/09/24 14:30 Ertapenem 1 gm/ Sodium Chloride 50 ml @ 100 mls/hr DAILY IV 10/10/24 18:00 10/13/24 08:27 100 MLS/HR Pantoprazole Sodium 40 mg DAILY@0600 PO 10/11/24 06:00 10/14/24 05:41 40 MG Zolpidem Tartrate 10 mg HSPRN PRN PO 10/10/24 22:15 10/13/24 22:33 10 MG Morphine Sulfate 2 mg Q6HPRN PRN IV 10/11/24 11:15 10/13/24 20:35 2 MG Vancomycin HCl 250 ml @ 250 mls/hr Q10H IV 10/13/24 10:00 10/14/24 05:42 250 MLS/HR laboratory and microbiology Laboratory Tests 10/13/24 07:39 10/12/24 04:39 Test 10/12/24 04:39 Range/Units Serum Glucose 81 74-106 mg/dL Assessment/Plan Patient is a 59 year old female who presented to the hospital with altered mental status. Reportedly, the patient was found to be altered when she woke up yesterday morning. She has been managed in hospital with encephalopathy/sepsis. She was found to have pneumonia and UTI. Cardiology is involved for cardiac aspects of care. It was of note that the patient is on outpatient antibiotic therapy for left hip wound which is on wound VAC also. She follows with primary (Dr. Barkley) and Infectious Disease as outpatient. Patient denies chest pain/palpitations. She is known to our practice from outside. Obese female, lying flat in bed. No JVD. Mucosa is pink. She is on supplemental nasal cannula oxygen. Not using accessory muscles of breathing. Scattered rhonchi/Rales in the lungs is heard. Cardiac: Regular, no thrill/gallop. Abdomen is soft and obese. No gross mass. Extremities reveal 1+ edema bilaterally. There is a wound VAC to an ulcer in the lateral left upper hip. Past medical history includes morbid obesity, status post bariatric surgery and some weight loss, COPD/asthma, obstructive sleep apnea, hypertension, hyperlipidemia, depression, anxiety, kidney stone, gout, active smoker and history of /tonsillectomy/cholecystectomy/Carpal tunnel surgery/ spinal tap. Does have history of spider ulcer with cellulitis on wound VAC in the left upper lateral hip. Family history includes brother with CABG. Echocardiogram of February 2024 revealed ejection fraction of 55% and right ventricular systolic pressure 37 mm Hg Left heart catheterization of January 18, 2023 (performed in [facility]) revealed nonobstructive coronary artery disease, mid RCA with 60% smooth lesion (IFR was negative for significant hemodynamic disease), ejection fraction of 55% WBC: 13.3 - 13.4 - 10.4 - 9.3 - 8.6 Creatinine: 1.16 - 0.63 - 0.68 - 0.56 - 0.58 - 0.55 Potassium: 3.9 - 2.8 - 3.5 - 3.3 - 4.0 Sodium: 148 - 149 - 147 - 144 - 143 BNP: 171.18 Troponin (high sensitive): 6 LDL: 83 Urinalysis revealed turbid urine with increased WBC Urine culture is positive: ESBL Chest x-ray revealed: IMPRESSION: Right lung volume loss with near complete opacification of the right hemithorax. Small right pleural effusion. CT of the head revealed: IMPRESSION: No acute intracranial findings. CT of the chest reviewed: FINDINGS: LUNGS AND PLEURAL SPACES: Linear consolidation along the right major fissure and right lower lobe could be atelectasis and/or pneumonia. No significant effusion. HEART: Unremarkable. No cardiomegaly. No significant pericardial effusion. No significant coronary artery calcifications. MEDIASTINUM: Pleural mediastinal lymph nodes. BONES/JOINTS: Unremarkable. No acute fracture. No dislocation. SOFT TISSUES: Unremarkable. VASCULATURE: Scattered calcified atherosclerotic disease of aorta. No thoracic aortic aneurysm. LYMPH NODES: See above. OTHER FINDINGS: . . IMPRESSION: Linear consolidation along the right major fissure and right lower lobe could be atelectasis and/or pneumonia. CT of the lower extremities reveal: Technique: Axial images left femur were obtained and reformatted in coronal and sagittal planes. All CT scans at this medical facility are performed using dose modulation techniques as appropriate to a performed exam including the following: Automated exposure control was utilized; adjustment of the MA and/or KV according to patient size; and use of iterative reconstruction technique. CT Dose: CTDI volume is 24, 19 mGy. Dose- length product is 2230 mGy*cm FINDINGS: Bones: No acute fracture or dislocation. Joint spaces are maintained. No cortical erosion or lytic osseous lesion. Soft tissues: A soft tissue defect is seen in the lateral aspect of the upper thigh at the level of femoral greater trochanter. No drainable fluid collection is seen. The defect extends to the underlying tensor fascia naren muscle but does not extend to the underlying bone. Other: A Acevedo catheter is seen in the bladder. Sigmoid diverticulosis noted. IMPRESSION: 1. Large soft tissue defect on the lateral aspect of the upper thigh extending to underlying tensor fascia naren muscle. No drainable fluid collection. No osseous involvement. Renal Ultrasound revealed: IMPRESSION: 11 mm nonobstructive left lower kidney stone. Mild right pelviectasis. EKG reveals sinus rhythm, PVC and no specific ST-T changes Tele reveals sinus rhythm Echocardiogram revealed: Left ventricle: LVEF was around 55%. There was no gross wall motion abnormality. Diastolic function was considered normal. Right ventricle was normal-sized with normal systolic function. Both atria were normal-sized. Aortic valve was not well visualized. There was no aortic insufficiency/stenosis. There was trace mitral/tricuspid regurgitation. Pulmonary valve was not well visualized. Right ventricular systolic pressure was assessed at 40 mm Hg. There was no pericardial effusion. Patient is a 59-year-old female who presented with altered mental status. Presentation is in favor of encephalopathy which quetiapine metabolic/septic secondary to UTI/pneumonia. Cardiac etiology for presentation is less likely. Does have history of coronary artery disease and with negative FFR of RCA. Acute coronary syndrome is not considered. Encephalopathy, metabolic/septic Altered mental status UTI Pneumonia, community-acquired Morbid obesity Status post with loss surgery Cellulitis of lower extremity Hypertension Hyperlipidemia Obstructive sleep apnea Cardiac suggestion for management: Manage on telemetry Follow-up electrolytes and kidney function test and correct abnormalities, keep potassium above 4 magnesium above 2 Continue 81 mg Aspirin daily Evaluation and management of UTI/sepsis aspirin primary team Pulmonary follow up Cardiac issa, stable Further evaluation and management depends on the above and clinical course A total of 55 minutes was spent reviewing the patient record, examining the patient, making a diagnostic and therapeutic plan, discussing this plan with medical personnel, following up on diagnostic studies and following the patient for clinical stability excluding any and all procedures. At least 50% of this time was spent in direct, [id number] contact. Thank you for allowing me to participate in this patient's care. Further recommendations will depend on patient's clinical course. Please do not hesitate to contact me if you have any questions or concerns. This medical document was created using electronic medical record system with [employer] dictation system. Although this document has been carefully reviewed, there may still be some phonetic and typographical errors. These areas are purely typographical due to the imperfection of the software programs, and do not reflect any compromise in the patient's medical care. Dietary Evaluation Review Comments: 1) Shaka 1 pk BID 2) Continue current plan of care Expected Outcomes/Goals: Pt will meet >75% estimated needs Fu 3-5 days Plan discussed with: Patient, Other (nurse) DALIA ARAGON MD Oct 14, 2024 08:23
[2024-10-14 10:44] LABS: Basophils # (auto) 0.1 10 ^3/uL (0-0.2); Basophils % (auto) 0.4 % (0.0-2.0); Eosinophils # (auto) 0.6 10 ^3/uL (0-0.8); Eosinophils % (auto) 4.2 % (0.0-7.0); Hematocrit 39.5 % (36.0-46.0); Hemoglobin 13.2 g/dL (12.2-16.2); Lymphocytes # (auto) 2.2 10 ^3/uL (0.4-5.4); Lymphocytes % (auto) 15.5 % (10.0-50.0); Mean Corpuscular Hemoglobin 31.6 pg (28.0-32.0); Mean Corpuscular Hgb Conc. 33.3 g/dL (32.0-36.0); Mean Corpuscular Volume 94.9 fL (80.0-100.0); Monocytes # (auto) 0.9 10 ^3/uL (0-1.3); Monocytes % (auto) 6.5 % (0.0-12.0); Neutrophils # (auto) 10.3 10 ^3/uL (1.6-8.6); Neutrophils % (auto) 73.4 % (37.0-80.0); Platelet Count (auto) 271 10^3/uL (140-450); Red Blood Cells 4.16 10^6/uL (4.0-5.20); Red Cell Distribution Width 14.2 % (11.8-14.3)
[2024-10-14 10:54] LABS: Anion Gap 8 (5-15); Carbon Dioxide 24 mmol/L (20-31); Potassium 3.7 mmol/L (3.5-5.1); Sodium 141 mmol/L (136-145)
[2024-10-14 11:00] LABS: BUN/Creatinine Ratio 12.7 (10.0-20.0); Chloride 109 mmol/L (98-107)
[2024-10-14 11:01] LABS: Blood Urea Nitrogen 8 mg/dL (9-23); Glucose 137 mg/dL (74-106)
--- NOTE | 2024-10-14 11:48 | DVHDS2 ---
Discharge Summary Date of Admission Oct 08, 2024 at 16:26 Date of Discharge: Oct 14, 2024 Admitting Diagnosis Metabolic encephalopathy Labs/Diagnostic Data: Laboratory Results Test 10/14/24 10:24 10/13/24 07:39 10/12/24 04:39 10/10/24 04:27 White Blood Count 14.0 10^3/uL (4.4-10.8) Red Blood Count 4.16 10^6/uL (4.0-5.20) Hemoglobin 13.2 g/dL (12.2-16.2) Hematocrit 39.5 % (36.0-46.0) Mean Corpuscular Volume 94.9 fL (80.0-100.0) Mean Corpuscular Hemoglobin 31.6 pg (28.0-32.0) Mean Corpuscular Hemoglobin Concent 33.3 g/dL (32.0-36.0) Red Cell Distribution Width 14.2 % (11.8-14.3) Platelet Count 271 10^3/uL (140-450) Mean Platelet Volume 8.6 fL (6.9-10.8) Neutrophils (%) (Auto) 73.4 % (37.0-80.0) Lymphocytes (%) (Auto) 15.5 % (10.0-50.0) Monocytes (%) (Auto) 6.5 % (0.0-12.0) Eosinophils (%) (Auto) 4.2 % (0.0-7.0) Basophils (%) (Auto) 0.4 % (0.0-2.0) Neutrophils # (Auto) 10.3 10 ^3/uL (1.6-8.6) Lymphocytes # (Auto) 2.2 10 ^3/uL (0.4-5.4) Monocytes # (Auto) 0.9 10 ^3/uL (0-1.3) Eosinophils # (Auto) 0.6 10 ^3/uL (0-0.8) Basophils # (Auto) 0.1 10 ^3/uL (0-0.2) Nucleated Red Blood Cells 0.0 % Sodium Level 141 mmol/L (136-145) Potassium Level 3.7 mmol/L (3.5-5.1) Chloride Level 109 mmol/L (98-107) Carbon Dioxide Level 24 mmol/L (20-31) Anion Gap 8 (5-15) Blood Urea Nitrogen 8 mg/dL (9-23) Creatinine 0.63 mg/dL (0.550-1.02) Glomerular Filtration Rate Calc 101 mL/min (>90) BUN/Creatinine Ratio 12.7 (10.0-20.0) Serum Glucose 137 mg/dL (74-106) Calcium Level 10.0 mg/dL (8.7-10.4) Vancomycin Level Trough 14.7 ug/mL (5-10) Uric Acid 6.5 mg/dL (3.1-7.8) Triglycerides Level 362 mg/dL (< 150) Cholesterol Level 180 mg/dL (< 200) LDL Cholesterol 83 mg/dL (< 100) HDL Cholesterol 38 mg/dL (40-59) Test 10/09/24 05:04 10/08/24 10:30 10/08/24 10:26 Total Bilirubin 0.3 mg/dL (0.2-1.0) Aspartate Amino Transferase (AST) 24 U/L (13-40) Alanine Aminotransferase (ALT) 17 U/L (7-40) Alkaline Phosphatase 71 U/L (46-116) Total Protein 6.1 g/dL (5.7-8.2) Albumin 3.9 g/dL (3.2-4.8) Lactic Acid Level 1.1 mmol/L (0.4-2.0) Ammonia < 10 umol/L (11-32) Troponin I High Sensitivity 6 ng/L (</=34) B-Type Natriuretic Peptide 171.18 pg/mL (0-100) Urine Color Colorless (Yellow) Urine Clarity Turbid (Clear) Urine pH 6.0 (5.0-9.0) Urine Specific [place] 1.014 (1.001-1.035) Urine Protein Trace (Negative) Urine Ketones Negative (Negative) Urine Blood 1+ /uL (Negative) Urine Nitrite 2+ (Negative) Urine Bilirubin Negative (Negative) Urine Urobilinogen Normal mg/dL (Negative) Urine Leukocyte Esterase 3+ /uL (Negative) Urine RBC 12 /hpf (0 - 4) Urine Microscopic WBC 1494 /HPF (0-5) Urine Squamous Epithelial Cells None seen /hpf (<5) Urine Bacteria Few /hpf (None Seen) Urine Glucose Normal mg/dL (Normal) Other Laboratory Tests 10/14/24 10:24 Brief Hx & Hospital Course: History of Present Illness The patient is a 59-year-old female with multiple past medical history including anxiety, CHF, COPD, and hypertension who presented to [facility] ED for evaluation of altered level of consciousness. As reported by daughter, patient has been noted this morning to be unresponsive, unable to wake up as usual, altered mental status, shortness of breaths, getting worse that prompted this visit. Daughter notes patient's last known normal was yesterday where she only appeared to be a bit tired, reports that she has a wound vac to her left leg due to a spider bite that continues to be reinfected. Patient was seen and evaluated in the ED, laboratory data shows WBC 13.3, platelets 232, sodium 148, potassium 3.9, BUN 26, creatinine 1.16, GFR 54, glucose 110, BNP 171.18, troponin 6, urinalysis positive for urinary tract infection. Patient was started on IV antibiotic regimen clindamycin, IV Rocephin, please see medication orders section in the computer. On my assessment, daughter at bedside, patient denied chest pain, no headache, no dizziness, currently on oxygen, no abdominal pain, no diarrhea, no nausea, no vomiting, no fever, no chills. Patient was admitted for further evaluation and medical management. Course of hospitalization: Initial assessment of the patient found her to have improvement with her mental status, but with noticeable encephalopathy. Long discussion was made with the patient was daughter who states that she was of normal mentation several days prior. Findings of sepsis were noted on lab work as well as acute respiratory failure as well as pneumonia to right lung. Given the patient's medical history, patient had CT scan with IV contrast to the left hip wound as well as CT of chest, which did demonstrate right lower lung pneumonia, with the left hip having no signs of abscess, OR noticeable areas of drainage. Patient's urine came back positive with ESBL. Patient has recurrent UTI, now with recurrent ESBL. Kidney ultrasound was performed, with 11 mm nonobstructive nephrolithiasis noted. Patient does report having history of obstructive uropathy with lithotripsy in the past. Patient was uric acid level 6.5. Infectious disease consultation was obtained given recurrent ESBL, for which the patient will be placed on a total of 14 day course of Invanz. Patient was now normal mentation, on room air, and ambulating without difficulty. Midline catheter was placed. Patient will be discharged home with continued IV antibiotic therapy and continuation of all previous home medications. Patient also we will follow up with PCP for antibiotic bladder irrigation as well as obtaining Urology consultation for lithotripsy in the future as nonobstructive stone may be etiology for patient's recurrent UTIs. Patient was family are agreeable with discharge plan. All questions answered. Physical examination General: Alert and Oriented x3. No acute distress. Well-nourished. Eyes: EOMI. Anicteric. HENT: Moist mucous membranes. Lungs: Clear to auscultation bilaterally. No accessory muscle use. Cardiovascular: Regular rate and rhythm. No murmur. No JVD. Abdomen: Soft, non-tender and non-distended. No palpable masses. Extremities: No edema. Non-tender. Skin: No rashes or lesions. Warm. Neurologic: No focal neurological deficits. CN II-XII grossly intact, but not individually tested. Psychiatric: Cooperative. Appropriate mood and affect. Total time spent with patient discussing and formulating plan of care: 35 minutes. This medical document was created using an electronic medical record system with [employer] dictation system. Although this document has been carefully reviewed, there may still be some phonetic and typographical errors. These areas are purely typographical due to imperfections of the software programs, and do not reflect any compromise in the patient's medical care. Consults/Reason for consult Infectious disease: Recurrent ESBL in the urine Condition at Discharge: Fair Final Diagnosis/Problems List Sepsis secondary to Complicated Cystitis with ESBL Secondary diagnosis: -acute hypoxic respiratory failure -sepsis -metabolic encephalopathy -pneumonia, probable aspiration etiology -complicated cystitis with Gram-negative rods -left hip abscess? , status post surgery -obesity -primary hypertension -acute on chronic diastolic heart failure Discharge Disposition: Home with Health Services Discharge Instruct/Medications Diet: Cardiac 2g Na,low cholest Activity: No Restrictions, As Tolerated Follow Up/Referral: Dr. Latonya Conte in [address] Barkley in 1 week Obtain referral for OP lithotripsy Medications: Continue home medications Invanz 1 gm IV via midline daily for 7 days starting 10/14/24 36 Discharge Statement: "Patient was advised to return to the ER or call 911 if any headaches, dizziness, shortness of breath, chest pain, abdominal pain, bleeding, fevers, or worsening of medical condition. Patient was counseled about treatment plan, medications, possible side effects, patientverbalized understanding. All questions were answered to the best of my ability. This discharge took greater then 30 minutes in planning, reviewing documentation, counseling the patient, and discussing with other team members." ASSESSMENT ASSESSMENT Assessment Sepsis secondary to Complicated Cystitis with ESBL Date of Service: Oct 14, 2024 Billing Provider: WARNER MOSS NP Common Visit Codes: 12986-KJG/OBS DISCH DAY >30min WARNER MOSS NP Oct 14, 2024 11:48
--- NOTE | 2024-10-14 22:48 | DVHPN2 ---
Progress Note - Dictate Date Seen: Oct 14, 2024 Medical Necessity Reason Pt with a Central, PICC or Fol: No Subjective Patient seen and examined at bedside. Breathing comfortably on room air Overnight events reviewed. vital signs Vital Sign Date Time Temp Pulse Resp B/P (MAP) Pulse Ox O2 Delivery O2 Flow Rate FiO2 10/14/24 12:40 98.0 76 18 144/78 (100) 93 98.0 10/14/24 10:00 0.0 10/14/24 10:00 Room Air* 21 Total Intake and Output 10/13/24 10/13/24 10/14/24 15:00 23:00 07:00 Intake Total 300 ml 890 ml 1050 ml Output Total 700 ml 600 ml Balance 300 ml 190 ml 450 ml objective Gen.: Patient lying in bed in no apparent distress. On room air. Head: Normocephalic, atraumatic. Eyes: EOMI/PERRLA. Ears: Normal hearing. Normal anatomy. Neck/trachea: Trachea midline, supple. Nose: Normal external anatomy. Mouth: Moist mucous membranes. Chest: Decreased air entry bilaterally. No wheezing or rhonchi. Cardiovascular: Positive S1, positive S2. Regular rate and rhythm. Abdomen: Positive bowel sounds in all 4 quadrants. Soft, non-tender, non- distended. : Deferred. Rectal: Deferred. Skin: Warm, dry. Intact. Extremities: 2+ radial pulses bilaterally. No lower extremity edema. Neuro: Awake, alert, oriented x3. No gross motor or sensory deficits. Cranial nerves II through XII intact. Gait not assessed. laboratory and microbiology Laboratory Tests 10/14/24 10:24 Test 10/14/24 10:24 Range/Units Serum Glucose 137 H 74-106 mg/dL Assessment/Plan Impression: Acute hypoxic respiratory failure Dependence on supplemental oxygen Pneumonia, likely gram negative Atelectasis Obesity, BMI 32.1 Events: Remains on room air Supplemental oxygen PRN Continue bronchodilators Continue antibiotics Incentive spirometry ID recommendations appreciated. Pain control Avoid oversedation Protonix for GI prophylaxis Disposition per hospitalist Assess for O2 requirements prior to discharge Labs and imaging reviewed. Rest of plan as noted below. Plan: Supplemental oxygen PRN Titrate to keep O2 sats above 92%. Continue bronchodilators. Continue antibiotics Incentive spirometry Pain control Avoid oversedation Monitor renal function. Monitor electrolytes. Supplement as necessary. Monitor ins and outs. Potassium supplementation Diet and lifestyle modifications for weight reduction Obesity - complicates all care GI prophylaxis - Pepcid DVT prophylaxis. Prognosis: Poor given patient's multiple co-morbidities. Rest of plan per hospitalist and other consultants. Thank you, GENNY Paredes, for allowing me to participate in this patient's care. Further recommendations will depend on the patient's clinical course. Please do not hesitate to contact me if you have any questions or concerns. This medical document was created using an electronic medical record system with [employer] dictation system. Although these documentations are being carefully reviewed, there may still be some phonetic and typographical changes. The errors are purely typographical, due to imperfection on the software program, and do not reflect any compromise in the patient's medical care. Dietary Evaluation Review Comments: 1) Shaka 1 pk BID 2) Continue current plan of care Expected Outcomes/Goals: Pt will meet >75% estimated needs Fu 3-5 days SHERI CALIXTO MD Oct 14, 2024 22:48
== END 2024-10-14 15:17 | disposition home health service (06) | DRG 720 ==
LOC: EDBD 09:41 → ER 09:41 → OVERFLOW 16:26 → TELE-CENTR 10-10 12:49 → CENTRAL 10-11 00:42 → TELE-CENTR 10-11 07:45
PROVIDERS: ADMIT Nurse Practitioner Acute Care; ATTEND Internal Medicine
DX: A41.50 Gram-negative sepsis, unspecified (principal); J96.01 Acute respiratory failure with hypoxia; J69.0 Pneumonitis due to inhalation of food and vomit; G93.41 Metabolic encephalopathy; I50.33 Acute on chronic diastolic (congestive) heart failure; J15.69 Pneumonia due to other Gram-negative bacteria; I11.0 Hypertensive heart disease with heart failure; J44.0 Chronic obstructive pulmonary disease with (acute) lower respiratory infection; J98.11 Atelectasis; L02.416 Cutaneous abscess of left lower limb; E66.01 Morbid (severe) obesity due to excess calories; E78.5 Hyperlipidemia, unspecified; E87.0 Hyperosmolality and hypernatremia; N30.00 Acute cystitis without hematuria; F32.A Depression, unspecified; F41.9 Anxiety disorder, unspecified; I25.10 Atherosclerotic heart disease of native coronary artery without angina pectoris; L97.929 Non-pressure chronic ulcer of unspecified part of left lower leg with unspecified severity; R65.20 Severe sepsis without septic shock; F17.210 Nicotine dependence, cigarettes, uncomplicated; N20.0 Calculus of kidney; L03.116 Cellulitis of left lower limb; Z99.81 Dependence on supplemental oxygen; Z98.84 Bariatric surgery status; Z90.710 Acquired absence of both cervix and uterus; Z90.49 Acquired absence of other specified parts of digestive tract; Z85.41 Personal history of malignant neoplasm of cervix uteri; Z82.5 Family history of asthma and other chronic lower respiratory diseases; Z82.49 Family history of ischemic heart disease and other diseases of the circulatory system; Z81.8 Family history of other mental and behavioral disorders; Z80.49 Family history of malignant neoplasm of other genital organs; Z79.899 Other long term (current) drug therapy; Z68.32 Body mass index [BMI] 32.0-32.9, adult; W57.XXXA Bitten or stung by nonvenomous insect and other nonvenomous arthropods, initial encounter; Y93.89 Activity, other specified; Y92.89 Other specified places as the place of occurrence of the external cause; Y99.8 Other external cause status; Z88.7 Allergy status to serum and vaccine; Z88.5 Allergy status to narcotic agent; Z79.82 Long term (current) use of aspirin
CPT/HCPCS: 36415; 70450; 71045; 71250; 73706; 76775; 80048; 80053; 80061; 80202; 81001; 82140; 82565; 83605; 83880; 84484; 84550; 85025; 87040; 87086; 87088; 87186; 87205; 93005; 93306; 94640; 96361; 96365; 96368; 96375; G0378; J1335; J2003; J2185; J3490

== ENCOUNTER 2024-10-18 15:32 | Emergency (ER) | payer MEDICAID ==
[~2024-10-18] VITALS: Ht 172.7 cm; Wt 94.1 kg
[~2024-10-18 15:32] MED LIST changes: +ZOLP10TA PO
[2024-10-18 16:08] VITALS: BP 168/76; PULSE 82; RESP 20; TEMP 97.4; O2SAT 96
--- NOTE | 2024-10-18 16:57 | ED.PDOC ---
History of Present Illness HPI Comments 59Y F presents to ED for chief complaint tube replacement. Pt needs midline replacement. No symptoms reported. Chief Complaint: Tube Replacement Time Seen by MD: 16:35 Primary Care Provider: FRANCISCO J Reviewed Notes: Nurses Notes, Medications, Allergies Allergies: Coded Allergies: Influenza Vaccines (Unverified Allergy, Severe, hypotension/coma, 09/13/24) Pneumococcal Vaccines (Unverified Allergy, Severe, hypotension/coma, 09/13/24) Codeine (Unverified Allergy, Intermediate, itchy, 09/13/24) Home Meds Active Scripts Cefdinir (Cefdinir) 300 Mg Cap, 300 MG PO BID for 10 Days, #20 CAP Prov:FRITZ SUNG MD 09/19/24 Lactulose (Lactulose) 10 Gm/15 Ml [place], 10 GM PO BID for 30 Days, #4500 ML Prov:HANNAH MEJIAS RESIDENT 08/22/24 Spironolactone (Aldactone) 25 Mg Tab, 25 MG PO BIDD, #60 TAB Prov:MELISSA MCNALLY MD 07/11/22 Ipratropium [place] (Ipratropium [place]) 0.02 % [place], 0.5 MG NEB Q6HPRN PRN, #30 ML Prov:MELISSA MCNALLY MD 07/11/22 Reported Medications Zolpidem Tartrate (Ambien) 10 Mg Tab, 10 MG PO HS, TAB 10/10/24 Albuterol Sulfate (Albuterol Sulfate) 2 Mg Tab, 2.5 MG INH PRN, MG 09/13/24 Evolocumab (Repatha) 140 Mg/Ml Inj, 140 MG SC, INJ 09/13/24 Omeprazole (Gnp Omeprazole) 20 Mg Tab, 40 MG PO DAILY, TAB 09/13/24 Ascorbic Acid (VITAMIN C TABLET) 500 Mg Tb, 250 MG PO DAILY, TAB 09/13/24 Yeast (S. Boulardii)(S. Cerevi (Probiotic) Unknown Strength Cap, PO, CAP 09/13/24 Mannose (D-Mannose) 500 Mg Cap, 1300 MG PO DAILY, CAP 09/13/24 Moose-3 Fatty Acids (FISH OIL) 1,000 Mg Cap, 1000 MG PO, CAP 09/13/24 Multiple Vitamins W/ Minerals (Bariatric Multivitamins/I) 1 Cap Cap, 1 CAP PO, CAP 09/13/24 Potassium Chloride (POTASSIUM CHLORIDE CR) 10 Meq Tb, 10 MEQ PO DAILY, TAB 09/13/24 Aspirin (Aspir-Low) 81 Mg Tab, 81 MG PO DAILY for 30 Days, MG 09/13/24 Cskqgphxnx-Gzbdzbnarhhxok-Qusq (Breztri Aerosphere 160-9-4.8 Mcg/Act) 1 Aer Aer, 1 AER IN PRN, AER 09/13/24 Carvedilol (Coreg) 6.25 Mg Tab, 6.25 MG PO BID, TAB 09/13/24 Hydrocodone-Acetaminophen (Hydrocodone Bitartrate/AC 5-325 mg) 1 Tab Tab, 1 TAB PO, TAB 09/13/24 Folic Acid (Folic Acid) 1 Mg Tab, 1 TAB PO DAILY for 30 Days, #30 05/30/24 Cholecalciferol (Vitamin D-3) 5,000 Unit Cap, 1 CAP PO DAILY for 90 Days, #90 05/30/24 Gabapentin (Gabapentin) 400 Mg Cap, 1 CAP PO QID for 30 Days, #120 03/20/24 Quetiapine Fumerate (QUETIAPINE FUMARATE) 400 Mg Tab, 1 TAB PO HS 03/20/24 Pregabalin (Pregabalin) 150 Mg Cap, 1 CAP PO TID for 30 Days, #90 03/20/24 Furosemide (Furosemide) 40 Mg Tab, 1 TAB PO BID 03/20/24 Information Source: Patient Mode of Arrival: Ambulatory Severity: Mild Timing: Hours Duration: Since onset Prehospital treatment: None Past Medical History PAST MEDICAL HISTORY: Angina, Anxiety, CHF, COPD, Depression, High Lipids, HTN Surgical History: Cholecystectomy, , Tonsillectomy 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 History Family History Family History: Family hx of Cancer, Family hx of heart pedro pablo, Family hx of HTN Family History (Other): CHF Social History Smoker: Cigarettes Alcohol: Denies ETOH Use Drugs: Denies Drug Use Lives In: Home Constitutional: denies: chills, diaphoresis, fatigue, fever, malaise, sweats, weakness, others EENTM: denies: blurred vision, double vision, ear bleeding, ear discharge, ear drainage, ear pain, ear ringing, eye pain, eye redness, hearing loss, mouth pain, mouth swelling, nasal discharge, nose bleeding, nose congestion, nose pain, photophobia, tearing, throat pain, throat swelling, voice changes, others Respiratory: denies: cough, hemoptysis, orthopnea, SOB at rest, shortness of breath, SOB with excertion, stridor, wheezing, others Cardiovascular: denies: chest pain, dizzy spells, diaphoresis, Dyspnea on exertion, edema, irregular heart beat, left arm pain, lightheadedness, palpitations, PND, syncope, others Gastrointestinal: denies: abdomen distended, abdominal pain, blood streaked bowels, constipated, diarrhea, dysphagia, difficulty swallowing, hematemesis, melena, nausea, poor appetite, poor fluid intake, rectal bleeding, rectal pain, vomiting, others Genitourinary: denies: abnormal vagina bleeding, burning, dyspareunia, dysuria, flank pain, frequency, hematuria, incontinence, pain, , vagina discharge, urgency, others Neurological: denies: dizziness, fainting, headache, left sided numbness, left sided weakness, numbness, paresthesia, pre-existing deficit, right sided numbness, right sided weakness, seizure, speech problems, tingling, tremors, weakness, others Musculoskeletal: denies: back pain, gout, joint pain, joint swelling, muscle pain, muscle stiffness, neck pain, others Integumetry: reports: others (Left upper arm PICC line); denies: bruises, change in color, change in hair/nails, dryness, laceration, lesions, lumps, rash , wounds Allergic/Immunocompromised: denies: Difficulty Healing, Frequent Infections, Hives, Itching, others Hematologic/Lymphatic: denies: anemia, blood clots, easy bleeding, easy bruising, swollen glands, others Endocrine: denies: excessive hunger, excessive sweating, excessive thirst, excessive urination, flushing, intolerance to cold, intolerance to heat, unexplained weight gain, unexplained weight loss, others Psychiatric: denies: anxiety, bipolar disorder, depression, hopeless, panic disorder, schizophrenia, sleepless, suicidal, others All Other Systems: Reviewed and Negative Physical Exam General Appearance: No Apparent Distress, Normal HEENT: Normal ENT Inspection, Pharynx Normal, TMs Normal Neck: Full Range of Motion, Non-Tender, Normal, Normal Inspection Respiratory: Chest Non-Tender, Lungs Clear, No Accessory Muscle Use, No Respiratory Distress, Normal Breath Sounds Cardiovascular: No Edema, No JVD, No Murmur, No Gallop, Normal Peripheral Pulses, Regular Rate/Rhythm Breast Exam: Deferred Gastrointestinal: No Organomegaly, Non Tender, No Pulsatile Mass, Normal Bowel Sounds, Soft Genitalia: Deferred Pelvic: Deferred Rectal: Deferred Extremities: No calf tenderness, Normal capillary refill, Normal inspection, Normal range of motion, Non-tender, No pedal edema Musculoskeletal : Apperance: Normal Neurologic: Alert, No Motor Deficits, Normal Affect, Normal Mood, No Sensory Deficits Cerebellar Function: Normal Reflexes: Normal Skin: Dry, Normal Color, Warm, Other ( patient has an occluded left upper arm PICC line.) Lymphatic: No Adenopathy Was a procedure done? Was a procedure done?: No Differential Dx Considerations may include: PICC line replacement X-Ray, Labs, Meds, VS Comment PICC nurse came and replace the patient's left upper arm PICC line. Intervention was uneventful. Patient was thankful. Time of 1ST Reevaluation: 17:20 Reevaluation 1ST: Improved Consultation: PCP Patient Education/Counseling: Diagnosis, Treatment Family Education/Counseling: Diagnosis, Treatment, No Family Present Departure 1 Departure Time of Disposition: 17:20 Impression: Primary Impression: Occluded PICC line Disposition: 01 HOME / SELF CARE / HOMELESS Condition: Stable Additional Instructions: Advised patient to follow up with the provider as scheduled. Discharged With: Self, Friend Critical Care Note Critical Care Time?: No Stability Stability form required: No Heart Score Heart Score: Heart Score Response (Comments) Value History N/A 0 EKG N/A 0 Age N/A 0 Risk Factors N/A 0 Troponin N/A 0 Total 0 I personally scribed for DALIA ZHANG PAC ([email or web address]) on 10/18/24 at 16:56. Electronically submitted by Aleshia Roca ([email or web address]). DALIA ZHANG PAC Oct 18, 2024 16:56
== END 2024-10-18 18:01 | disposition home or self-care (01) ==
LOC: ER 15:32
DX: T82.594A Other mechanical complication of infusion catheter, initial encounter (principal); I11.0 Hypertensive heart disease with heart failure; I50.9 Heart failure, unspecified; J44.9 Chronic obstructive pulmonary disease, unspecified; E78.5 Hyperlipidemia, unspecified; F17.210 Nicotine dependence, cigarettes, uncomplicated; Z90.49 Acquired absence of other specified parts of digestive tract; Z90.89 Acquired absence of other organs; Z79.82 Long term (current) use of aspirin; Z79.899 Other long term (current) drug therapy; Z88.5 Allergy status to narcotic agent; Z88.7 Allergy status to serum and vaccine; Z88.8 Allergy status to other drugs, medicaments and biological substances

== ENCOUNTER → 2024-10-30 | Day surgery (SDC) | payer MEDICAID ==
[2024-10-29 10:12] LABS: Urine Bacteria None Seen /hpf (None Seen)
[2024-10-29 10:21] LABS: Basophils # (auto) 0.1 10 ^3/uL (0-0.2); Basophils % (auto) 1.1 % (0.0-2.0); Eosinophils # (auto) 0.4 10 ^3/uL (0-0.8); Eosinophils % (auto) 3.6 % (0.0-7.0); Hematocrit 43.4 % (36.0-46.0); Hemoglobin 14.2 g/dL (12.2-16.2); Lymphocytes % (auto) 19.3 % (10.0-50.0); Mean Corpuscular Hemoglobin 30.7 pg (28.0-32.0); Mean Corpuscular Hgb Conc. 32.7 g/dL (32.0-36.0); Mean Corpuscular Volume 93.9 fL (80.0-100.0); Monocytes # (auto) 0.7 10 ^3/uL (0-1.3); Monocytes % (auto) 6.5 % (0.0-12.0); Neutrophils # (auto) 7.2 10 ^3/uL (1.6-8.6); Neutrophils % (auto) 69.5 % (37.0-80.0); Nucleated Red Blood Cells % 0.1 %; Platelet Count (auto) 279 10^3/uL (140-450); Red Blood Cells 4.63 10^6/uL (4.0-5.20); Red Cell Distribution Width 13.9 % (11.8-14.3); White Blood Cell 10.3 10^3/uL (4.4-10.8)
[2024-10-29 10:25] LABS: Urine Blood Negative /uL (Negative); Urine Clarity Clear (Clear); Urine Color Colorless (Yellow); Urine Hyaline Cast FEW /lpf (0 - 2); Urine Protein, UAD Negative (Negative); Urine Specific Gravity 1.007 (1.001-1.035); Urine Squamous Epithelial Cell None Seen /hpf (<5); Urine Urobilinogen Normal (Negative); Urine WBC < 1 /HPF (0-5)
[2024-10-29 10:34] LABS: INR 0.97 (0.9-1.15); Partial Thromboplastin Time 31.5 SEC (24.5-34.5); Prothrombin Time 10.3 sec (9.3-11.8)
[2024-10-29 11:00] LABS: Alanine Aminotransferase 16 U/L (7-40); Albumin 4.8 g/dL (3.2-4.8); Alkaline Phosphatase 110 U/L (46-116); Anion Gap 4 (5-15); Aspartate Aminotransferase 22 U/L (13-40); BUN/Creatinine Ratio 22.4 (10.0-20.0); Bilirubin, Total 0.3 mg/dL (0.2-1.0); Blood Urea Nitrogen 19 mg/dL (9-23); Carbon Dioxide 31 mmol/L (20-31); Chloride 104 mmol/L (98-107); Potassium 4.4 mmol/L (3.5-5.1); Sodium 139 mmol/L (136-145); Total Protein 7.1 g/dL (5.7-8.2)
[2024-10-29 11:07] LABS: Calcium 10.6 mg/dL (8.7-10.4); Glucose 118 mg/dL (74-106)
[~2024-10-30] VITALS: Ht 172.7 cm; Wt 90.3 kg
[~2024-10-30] MED LIST changes: -ALBU2TAB11 INH; -ASCO500T11 PO; -BUDE1AER6 IN; +BUPIVACAINE 0.5% P/F INJ 10 ML VIAL ONE; -CEFD300C2 PO; -GABA-1251 PO; +HYDR-4798 PO; -HYDR-4902 PO; +HYDROmorphone HCL 2 MG/ML VL/or syr IV PRN; +HYDROmorphone HCL 2 MG/ML VL/or syr ONE; +KETAMINE 50mg/ML 1ml syringe ONE; +KETOROLAC TROMETH 30 MG/ML 1ML VIAL IV ONE; +LIDOCAINE W/ EPINEPHRINE 1% 20ML VIAL ONE; +METOCLOPRAMIDE HCL 5MG/ml INJ 2ml VIAL IV ONE; +MIDAZOLAM HCL 2MG/2ML 2ml VIAL (1mg/ml) ONE; +MORPHINE SULFATE 4 MG/ML SYR/VIAL IV PRN; +MORPHINE SULFATE INJ 2 MG/ml SYRG IV PRN; -OMEP20TA PO; +PREG100C66 PO; -PREG150C63 PO; +ROCURONIUM 10MG/ML 10ML VIAL IV ONE; +SODIUM CHLORIDE LOCK 10 ML ONE; +SUGAMMADEX 200mg/2ml Vial (100MG/ML) IV ONE; -ZOLP10TA PO; +ceFAZolin 2 GM/D5W50ml 50 ML IV ONE; +fentaNYL CITRATE 100 MCG/2 ML VL ONE
[2024-10-30 12:57] VITALS: PULSE 68; RESP 13; TEMP 97.9; O2SAT 94
--- NOTE | 2024-10-30 13:19 | DVHOP ---
DATE OF SURGERY: 10/30/2024 PREOPERATIVE DIAGNOSIS: Nonhealing wound, left hip. POSTOPERATIVE DIAGNOSIS: Nonhealing wound, left hip. SURGEON: Renan Bass MD ANESTHESIA: General endotracheal. ANESTHESIOLOGIST: Dr. Mark. FURNACE TENDER: Nicholas Bhatia. DESCRIPTION OF PROCEDURE: Under general anesthesia with the patient's skin prepped and draped, necrotic tissue was debrided from the left hip wound. There was tunneling of the wound towards the midline. This was opened and debrided with scraping by a curettage. All the necrotic tissue was debrided and subsequently pulse lavaged with a liter and a half of antibiotic-containing pulse lavage solution. Following drying of the wound, human desiccated umbilical cord matrix was applied. An Adaptic applied over the matrix to keep it in place and subsequently, a wound VAC was applied to the wound and connected to suction. The patient remained stable throughout the procedure, left the operating room following an accurate needle and sponge count. Family was thoroughly informed in the waiting room. Renan Bass MD PF/ELAINE TID: [id number] RECEIPT: [id number]
[2024-10-30] MEDS: HYDROmorphone HCL 2 MG/ML VL/or syr IV PRN (13:22)
[2024-10-30 14:35] VITALS: BP 118/67; PULSE 60; RESP 13; O2SAT 94
== END | disposition home or self-care (01) ==
LOC: SUR 08:00
PROVIDERS: ATTEND Surgery
DX: T81.89XA Other complications of procedures, not elsewhere classified, initial encounter (principal); M87.852 Other osteonecrosis, left femur; L03.116 Cellulitis of left lower limb; I25.119 Atherosclerotic heart disease of native coronary artery with unspecified angina pectoris; I25.2 Old myocardial infarction; I50.9 Heart failure, unspecified; G89.29 Other chronic pain; J43.9 Emphysema, unspecified; G47.30 Sleep apnea, unspecified; F41.8 Other specified anxiety disorders; F17.210 Nicotine dependence, cigarettes, uncomplicated; E66.9 Obesity, unspecified; Z68.30 Body mass index [BMI] 30.0-30.9, adult; Z90.49 Acquired absence of other specified parts of digestive tract; Z98.891 History of uterine scar from previous surgery; Z82.49 Family history of ischemic heart disease and other diseases of the circulatory system; Z81.0 Family history of intellectual disabilities; Z80.8 Family history of malignant neoplasm of other organs or systems; Z82.5 Family history of asthma and other chronic lower respiratory diseases; Z81.1 Family history of alcohol abuse and dependence; Y82.8 Other medical devices associated with adverse incidents
CPT/HCPCS: 11042; 17999; 36415; 80053; 81001; 85025; 85610; 85730; 88305; J0690; J1171; J2250; J3010; J3490; J7030

== ENCOUNTER 2024-12-20 18:06 | Emergency (ER) | payer MEDICAID ==
[~2024-12-20] VITALS: Ht 172.7 cm; Wt 87.7 kg
[~2024-12-20 18:06] MED LIST changes: -BUPIVACAINE 0.5% P/F INJ 10 ML VIAL ONE; -HYDROmorphone HCL 2 MG/ML VL/or syr IV PRN; -HYDROmorphone HCL 2 MG/ML VL/or syr ONE; -KETAMINE 50mg/ML 1ml syringe ONE; -KETOROLAC TROMETH 30 MG/ML 1ML VIAL IV ONE; -LIDOCAINE W/ EPINEPHRINE 1% 20ML VIAL ONE; -METOCLOPRAMIDE HCL 5MG/ml INJ 2ml VIAL IV ONE; -MIDAZOLAM HCL 2MG/2ML 2ml VIAL (1mg/ml) ONE; -MORPHINE SULFATE 4 MG/ML SYR/VIAL IV PRN; -MORPHINE SULFATE INJ 2 MG/ml SYRG IV PRN; -ROCURONIUM 10MG/ML 10ML VIAL IV ONE; -SODIUM CHLORIDE LOCK 10 ML ONE; -SUGAMMADEX 200mg/2ml Vial (100MG/ML) IV ONE; -ceFAZolin 2 GM/D5W50ml 50 ML IV ONE; -fentaNYL CITRATE 100 MCG/2 ML VL ONE
--- NOTE | 2024-12-20 18:27 | ED.PDOC ---
History of Present Illness HPI Comments 59-year-old female came to ER for tube replacement. Patient states her PICC line on her left upper extremity appears to be clogged. Patient coming in to have her PICC line replaced. Denies any pain at this time of care Chief Complaint: Tube Replacement Time Seen by MD: 18:27 Primary Care Provider: FRANCISCO J Reviewed Notes: Nurses Notes Allergies: Coded Allergies: Influenza Vaccines (Unverified Allergy, Severe, hypotension/coma, 09/13/24) Pneumococcal Vaccines (Unverified Allergy, Severe, hypotension/coma, 09/13/24) Codeine (Unverified Allergy, Intermediate, itchy, 09/13/24) Home Meds Active Scripts Lactulose (Lactulose) 10 Gm/15 Ml [place], 10 GM PO BID for 30 Days, #4500 ML Prov:HANNAH MEJIAS RESIDENT 08/22/24 Spironolactone (Aldactone) 25 Mg Tab, 25 MG PO BIDD, #60 TAB Prov:MELISSA MCNALLY MD 07/11/22 Ipratropium [place] (Ipratropium [place]) 0.02 % [place], 0.5 MG NEB Q6HPRN PRN, #30 ML Prov:MELISSA MCNALLY MD 07/11/22 Reported Medications Hydrocodone-Acetaminophen (Hydrocodone Bitartrate/AC 10-325 mg) 1 Tab Tab, 1 TAB PO PRN, TAB 10/29/24 Pregabalin (Pregabalin) 100 Mg Cap, 100 MG PO, CAP 10/29/24 Evolocumab (Repatha) 140 Mg/Ml Inj, 140 MG SC, INJ 09/13/24 Yeast (S. Boulardii)(S. Cerevi (Probiotic) Unknown Strength Cap, PO, CAP 09/13/24 Mannose (D-Mannose) 500 Mg Cap, 1300 MG PO DAILY, CAP 09/13/24 [place]-3 Fatty Acids (FISH OIL) 1,000 Mg Cap, 1000 MG PO, CAP 09/13/24 Multiple Vitamins W/ Minerals (Bariatric Multivitamins/I) 1 Cap Cap, 1 CAP PO, CAP 09/13/24 Potassium Chloride (POTASSIUM CHLORIDE CR) 10 Meq Tb, 10 MEQ PO DAILY, TAB 09/13/24 Aspirin (Aspir-Low) 81 Mg Tab, 81 MG PO DAILY for 30 Days, MG 09/13/24 Carvedilol (Coreg) 6.25 Mg Tab, 6.25 MG PO BID, TAB 09/13/24 Folic Acid (Folic Acid) 1 Mg Tab, 1 TAB PO DAILY for 30 Days, #30 05/30/24 Cholecalciferol (Vitamin D-3) 5,000 Unit Cap, 1 CAP PO DAILY for 90 Days, #90 05/30/24 Quetiapine Fumerate (QUETIAPINE FUMARATE) 400 Mg Tab, 1 TAB PO HS 03/20/24 Furosemide (Furosemide) 40 Mg Tab, 1 TAB PO BID 03/20/24 Information Source: Patient Mode of Arrival: Ambulatory Severity: Mild Timing: Hours Duration: Since onset Past Medical History PAST MEDICAL HISTORY: Angina, Anxiety, CHF, COPD, Depression, High Lipids, HTN Surgical History: Cholecystectomy, , Tonsillectomy 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 History Family History Family History: Family hx of Cancer, Family hx of heart pedro pablo, Family hx of HTN Family History (Other): CHF Social History Smoker: Cigarettes Alcohol: Denies ETOH Use Drugs: Denies Drug Use Lives In: Home Constitutional: denies: chills, diaphoresis, fatigue, fever, malaise, sweats, weakness, others EENTM: denies: blurred vision, double vision, ear bleeding, ear discharge, ear drainage, ear pain, ear ringing, eye pain, eye redness, hearing loss, mouth pain, mouth swelling, nasal discharge, nose bleeding, nose congestion, nose pain, photophobia, tearing, throat pain, throat swelling, voice changes, others Respiratory: denies: cough, hemoptysis, orthopnea, SOB at rest, shortness of breath, SOB with excertion, stridor, wheezing, others Cardiovascular: denies: chest pain, dizzy spells, diaphoresis, Dyspnea on exertion, edema, irregular heart beat, left arm pain, lightheadedness, palpit ations, PND, syncope, others Gastrointestinal: denies: abdomen distended, abdominal pain, blood streaked b owels, constipated, diarrhea, dysphagia, difficulty swallowing, hematemesis, melena, nausea, poor appetite, poor fluid intake, rectal bleeding, rectal pain, vomiting, others Genitourinary: denies: abnormal vagina bleeding, burning, dyspareunia, dysuria, flank pain, frequency, hematuria, incontinence, pain, , vagina discharge, urgency, others Neurological: denies: dizziness, fainting, headache, left sided numbness, left sided weakness, numbness, paresthesia, pre-existing deficit, right sided numbness, right sided weakness, seizure, speech problems, tingling, tremors, weakness, others Musculoskeletal: reports: others (PICC line left upper extremity); denies: back pain, gout, joint pain, joint swelling, muscle pain, muscle stiffness, neck pain Integumetry: denies: bruises, change in color, change in hair/nails, dryness, laceration, lesions, lumps, rash, wounds, others Allergic/Immunocompromised: denies: Difficulty Healing, Frequent Infections, Hives, Itching, others Hematologic/Lymphatic: denies: anemia, blood clots, easy bleeding, easy bruising, swollen glands, others Endocrine: denies: excessive hunger, excessive sweating, excessive thirst, excessive urination, flushing, intolerance to cold, intolerance to heat, unexplained weight gain, unexplained weight loss, others Psychiatric: denies: anxiety, bipolar disorder, depression, hopeless, panic disorder, schizophrenia, sleepless, suicidal, others Physical Exam General Appearance: No Apparent Distress, Normal HEENT: Normal ENT Inspection, Pharynx Normal, TMs Normal Neck: Full Range of Motion, Non-Tender, Normal, Normal Inspection Respiratory: Chest Non-Tender, Lungs Clear, No Accessory Muscle Use, No Respiratory Distress, Normal Breath Sounds Cardiovascular: No Edema, No JVD, No Murmur, No Gallop, Normal Peripheral Pulses, Regular Rate/Rhythm Breast Exam: Deferred Gastrointestinal: No Organomegaly, Non Tender, No Pulsatile Mass, Normal Bowel Sounds, Soft Genitalia: Deferred Pelvic: Deferred Rectal: Deferred Extremities: No calf tenderness, Normal capillary refill, Normal inspection, Normal range of motion, Non-tender, No pedal edema, Other (PICC line left upper extremity) Musculoskeletal : Apperance: Normal Neurologic: Alert, applications programmer II-XII nml as Tested, No Motor Deficits, Normal Affect, Normal Mood, No Sensory Deficits Cerebellar Function: Normal Reflexes: Normal Skin: Dry, Normal Color, Warm Lymphatic: No Adenopathy Was a procedure done? Was a procedure done?: No Differential Dx Considerations may include: Malfunctioning PICC line X-Ray, Labs, Meds, VS Vital Signs Date Time Temp Pulse Resp B/P (MAP) Pulse Ox O2 Delivery O2 Flow Rate FiO2 12/20/24 18:31 97.0 82 20 137/84 (101) 99 97.0 EXAM: XY CHEST PORTABLE REASON FOR EXAM: verify picc placement TECHNIQUE: 1 view of the chest COMPARISON: XY CHEST PORTABLE on DOS: 10/08/24 FINDINGS/IMPRESSION: LUNGS: No pleural effusion, consolidation, or pneumothorax MEDIASTINUM: Unremarkable BONES: No acute osseous abnormality OTHER: None Time of 1ST Reevaluation: 18:24 Reevaluation 1ST: Unchanged Patient Education/Counseling: Diagnosis, Treatment Family Education/Counseling: Diagnosis, Treatment Departure 1 Departure Time of Disposition: 05:27 (Patient has a clot PICC line. Patient eloped prior to workup completion) Impression: Primary Impression: Occluded PICC line Qualified Codes: T82.898A - Other specified complication of vascular prosthetic devices, implants and grafts, initial encounter Disposition: 07 LEFT AWOL/ELOPED Condition: Fair Critical Care Note Critical Care Time?: No Stability Stability form required: No Heart Score Heart Score: Heart Score Response (Comments) Value History N/A 0 EKG N/A 0 Age N/A 0 Risk Factors N/A 0 Troponin N/A 0 Total 0 I personally scribed for KAYLYNN RENNER MD ([email or web address]) on 12/20/24 at 18:27. Electronically submitted by Felipe Gooden ([email or web address]). I personally scribed for KAYLYNN RENNER MD ([email or web address]) on 12/20/24 at 20:03. Electronically submitted by Felipe Gooden ([email or web address]). KAYLYNN RENNER MD December 20, 2024 18:27
[2024-12-20 18:31] VITALS: BP 137/84; PULSE 82; RESP 20; TEMP 97; O2SAT 99
[2024-12-20] MEDS ORDERED: CATHFLO ACTIVASE (ALTEPLASE) 2 MG VIAL IV ONE (19:00)
--- NOTE | 2024-12-20 19:10 | DVH ---
EXAM: XY CHEST PORTABLE REASON FOR EXAM: verify picc placement TECHNIQUE: 1 view of the chest COMPARISON: XY CHEST PORTABLE on DOS: 10/08/24 FINDINGS/IMPRESSION: LUNGS: No pleural effusion, consolidation, or pneumothorax MEDIASTINUM: Unremarkable BONES: No acute osseous abnormality OTHER: None
== END 2024-12-20 21:00 | disposition left against medical advice (07) ==
LOC: ER 18:12
DX: T82.898A Other specified complication of vascular prosthetic devices, implants and grafts, initial encounter (principal); F17.210 Nicotine dependence, cigarettes, uncomplicated; I50.9 Heart failure, unspecified; F32.A Depression, unspecified; E78.5 Hyperlipidemia, unspecified; J44.9 Chronic obstructive pulmonary disease, unspecified; I10 Essential (primary) hypertension; Z88.5 Allergy status to narcotic agent; Z88.7 Allergy status to serum and vaccine; Z90.49 Acquired absence of other specified parts of digestive tract; Z90.89 Acquired absence of other organs; Z79.899 Other long term (current) drug therapy; Z88.1 Allergy status to other antibiotic agents; Y92.89 Other specified places as the place of occurrence of the external cause
CPT/HCPCS: 71045

== ENCOUNTER 2024-12-21 08:30 | Emergency (ER) | payer MEDICAID ==
[~2024-12-21] VITALS: Ht 172.7 cm; Wt 193.8 kg
[2024-12-21 10:29] VITALS: BP 104/63; PULSE 69; RESP 19; TEMP 98; O2SAT 95
--- NOTE | 2024-12-21 11:23 | ED.PDOC ---
History of Present Illness HPI Comments 59-year-old female presents to the ER with prior medical history of angina, anxiety, CHF, COPD, depression, high lipids, hypertension; surgical history of cholecystectomy, tonsillectomy, energy complaining of to be placement. Patient was here last night but went home due for most not having a PICC line nurse available, patient is here now stating with the same complaint as before for which I am going to be copying and paste the HPI from before to now do from no changes of her symptoms overnight, 59-year-old female came to ER for tube replacement. Patient states her PICC line on her left upper extremity appears to be clogged. Patient coming in to have her PICC line replaced. Denies any pain at this time of care. Social history of tobacco use, denies rest. Family history of cancer, heart disease, hypertension, CHF. Denies chills, fever, N/V/D, SOB, CP. No other associated symptoms, modifiers, recent injuries or sick contacts present at this time. Chief Complaint: Tube Replacement Time Seen by MD: 10:25 Primary Care Provider: FRANCISCO J Reviewed Notes: Nurses Notes, Medications, Allergies Allergies: Coded Allergies: Influenza Vaccines (Unverified Allergy, Severe, hypotension/coma, 09/13/24) Pneumococcal Vaccines (Unverified Allergy, Severe, hypotension/coma, 09/13/24) Codeine (Unverified Allergy, Intermediate, itchy, 09/13/24) Home Meds Active Scripts Lactulose (Lactulose) 10 Gm/15 Ml [place], 10 GM PO BID for 30 Days, #4500 ML Prov:HANNAH MEJIAS RESIDENT 08/22/24 Spironolactone (Aldactone) 25 Mg Tab, 25 MG PO BIDD, #60 TAB Prov:MELISSA MCNALLY MD 07/11/22 Ipratropium [place] (Ipratropium [place]) 0.02 % [place], 0.5 MG NEB Q6HPRN PRN, #30 ML Prov:MELISSA MCNALLY MD 07/11/22 Reported Medications Hydrocodone-Acetaminophen (Hydrocodone Bitartrate/AC 10-325 mg) 1 Tab Tab, 1 TAB PO PRN, TAB 10/29/24 Pregabalin (Pregabalin) 100 Mg Cap, 100 MG PO, CAP 10/29/24 Evolocumab (Repatha) 140 Mg/Ml Inj, 140 MG SC, INJ 09/13/24 Yeast (S. Boulardii)(S. Cerevi (Probiotic) Unknown Strength Cap, PO, CAP 09/13/24 [place] (D-Mannose) 500 Mg Cap, 1300 MG PO DAILY, CAP 09/13/24 [place]-3 Fatty Acids (FISH OIL) 1,000 Mg Cap, 1000 MG PO, CAP 09/13/24 Multiple Vitamins W/ Minerals (Bariatric Multivitamins/I) 1 Cap Cap, 1 CAP PO, CAP 09/13/24 Potassium Chloride (POTASSIUM CHLORIDE CR) 10 Meq Tb, 10 MEQ PO DAILY, TAB 09/13/24 Aspirin (Aspir-Low) 81 Mg Tab, 81 MG PO DAILY for 30 Days, MG 09/13/24 Carvedilol (Coreg) 6.25 Mg Tab, 6.25 MG PO BID, TAB 09/13/24 Folic Acid (Folic Acid) 1 Mg Tab, 1 TAB PO DAILY for 30 Days, #30 05/30/24 Cholecalciferol (Vitamin D-3) 5,000 Unit Cap, 1 CAP PO DAILY for 90 Days, #90 05/30/24 Quetiapine Fumerate (QUETIAPINE FUMARATE) 400 Mg Tab, 1 TAB PO HS 03/20/24 Furosemide (Furosemide) 40 Mg Tab, 1 TAB PO BID 03/20/24 Information Source: Patient Mode of Arrival: Ambulatory Severity: Moderate Timing: Days Duration: Since onset, Days Prehospital treatment: None Past Medical History PAST MEDICAL HISTORY: Angina, Anxiety, CHF, COPD, Depression, High Lipids, HTN Surgical History: Cholecystectomy, , Tonsillectomy 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 History Family History Family History: Reviewed,noncontributory to illness, Family hx of Cancer, Family hx of heart pedro pablo, Family hx of HTN Family History (Other): CHF Social History Smoker: Cigarettes Alcohol: Denies ETOH Use Drugs: Denies Drug Use Lives In: Home Constitutional: reports: others (PICC line replacement); denies: chills, diaphoresis, fatigue, fever, malaise, sweats, weakness EENTM: denies: blurred vision, double vision, ear bleeding, ear discharge, ear drainage, ear pain, ear ringing, eye pain, eye redness, hearing loss, mouth pain, mouth swelling, nasal discharge, nose bleeding, nose congestion, nose pain, photophobia, tearing, throat pain, throat swelling, voice changes, others Respiratory: denies: cough, hemoptysis, orthopnea, SOB at rest, shortness of breath, SOB with excertion, stridor, wheezing, others Cardiovascular: denies: chest pain, dizzy spells, diaphoresis, Dyspnea on exertion, edema, irregular heart beat, left arm pain, lightheadedness, palpitations, PND, syncope, others Gastrointestinal: denies: abdomen distended, abdominal pain, blood streaked bowels, constipated, diarrhea, dysphagia, difficulty swallowing, hematemesis, melena, nausea, poor appetite, poor fluid intake, rectal bleeding, rectal pain, vomiting, others Genitourinary: denies: abnormal vagina bleeding, burning, dyspareunia, dysuria, flank pain, frequency, hematuria, incontinence, pain, , vagina discharge, urgency, others Neurological: denies: dizziness, fainting, headache, left sided numbness, left sided weakness, numbness, paresthesia, pre-existing deficit, right sided numbness, right sided weakness, seizure, speech problems, tingling, tremors, weakness, others Musculoskeletal: denies: back pain, gout, joint pain, joint swelling, muscle pain, muscle stiffness, neck pain, others Integumetry: denies: bruises, change in color, change in hair/nails, dryness, laceration, lesions, lumps, rash, wounds, others Allergic/Immunocompromised: denies: Difficulty Healing, Frequent Infections, Hives, Itching, others Hematologic/Lymphatic: denies: anemia, blood clots, easy bleeding, easy bruising, swollen glands, others Endocrine: denies: excessive hunger, excessive sweating, excessive thirst, excessive urination, flushing, intolerance to cold, intolerance to heat, unexplained weight gain, unexplained weight loss, others Psychiatric: denies: anxiety, bipolar disorder, depression, hopeless, panic disorder, schizophrenia, sleepless, suicidal, others All Other Systems: Reviewed and Negative Physical Exam General Appearance: No Apparent Distress, Normal HEENT: Normal ENT Inspection, PERRL/EOMI, Pharynx Normal, TMs Normal Neck: Full Range of Motion, Non-Tender, Normal, Normal Inspection Respiratory: Chest Non-Tender, Lungs Clear, No Accessory Muscle Use, No Respiratory Distress, Normal Breath Sounds Cardiovascular: No Edema, No JVD, No Murmur, No Gallop, Normal Peripheral P ulses, Regular Rate/Rhythm Breast Exam: Deferred Gastrointestinal: No Organomegaly, Non Tender, No Pulsatile Mass, Normal Bowel Sounds, Soft Genitalia: Deferred Pelvic: Deferred Rectal: Deferred Extremities: No calf tenderness, Normal capillary refill, Normal inspection, Normal range of motion, Non-tender, No pedal edema, Other (Left arm PICC line obstructed to be changed) Musculoskeletal : Apperance: Normal Neurologic: Alert, interventional radiology rn II-XII nml as Tested, No Motor Deficits, Normal Affect, Normal Mood, No Sensory Deficits Cerebellar Function: Normal Reflexes: Normal Skin: Dry, Normal Color, Warm Peripheral Pulses: 1+ carotid (R), 1+ carotid (L) Lymphatic: No Adenopathy Was a procedure done? Was a procedure done?: No Differential Dx Considerations may include: PICC line replacement X-Ray, Labs, Meds, VS Vital Signs Date Time Temp Pulse Resp B/P (MAP) Pulse Ox O2 Delivery O2 Flow Rate FiO2 12/21/24 10:29 69 19 95 Room Air 12/21/24 10:29 98.0 69 19 104/63 (77) 95 98.0 12/21/24 09:10 98.3 78 16 111/72 (85) 94 98.3 X-Ray, Labs, Meds, VS Comment Patient had a PICC line replaced by the PICC line nurse with no issues patient will be discharged to continue her present management Time of 1ST Reevaluation: 10:55 Reevaluation 1ST: Unchanged Patient Education/Counseling: Diagnosis, Treatment, Prognosis Family Education/Counseling: No Family Present Departure 1 Departure Time of Disposition: 11:54 Impression: Primary Impression: Occluded PICC line Qualified Codes: T82.898A - Other specified complication of vascular prosthetic devices, implants and grafts, initial encounter Disposition: 01 HOME / SELF CARE / HOMELESS Condition: Fair Additional Instructions: Continue present management Discharged With: Self Critical Care Note Critical Care Time?: No Stability Stability form required: No Heart Score Heart Score: Heart Score Response (Comments) Value History N/A 0 EKG N/A 0 Age 45-64 1 Risk Factors >3 or Hx ASHD 2 Troponin N/A 0 Total 3 I personally scribed for ZINI,GILBERT Y MD ([email or web address]) on 12/21/24 at 11:23. Electronically submitted by Johnson Gutierrez ([email or web address]). BEVERLY GONZALEZ MD December 21, 2024 11:23
== END 2024-12-21 11:55 | disposition home or self-care (01) ==
LOC: ER 08:30
DX: T82.898A Other specified complication of vascular prosthetic devices, implants and grafts, initial encounter (principal); F17.210 Nicotine dependence, cigarettes, uncomplicated; I11.0 Hypertensive heart disease with heart failure; I50.9 Heart failure, unspecified; J44.9 Chronic obstructive pulmonary disease, unspecified; F41.9 Anxiety disorder, unspecified; E78.5 Hyperlipidemia, unspecified; Z90.49 Acquired absence of other specified parts of digestive tract; Z90.89 Acquired absence of other organs; Z88.7 Allergy status to serum and vaccine; Z88.5 Allergy status to narcotic agent; Z88.1 Allergy status to other antibiotic agents; Z79.899 Other long term (current) drug therapy; X58.XXXA Exposure to other specified factors, initial encounter; Y93.89 Activity, other specified; Y92.89 Other specified places as the place of occurrence of the external cause; Y99.8 Other external cause status
CPT/HCPCS: 36569

== ENCOUNTER 2025-02-03 10:39 | Emergency (ER) | payer MEDICAID ==
[~2025-02-03] VITALS: Ht 172.7 cm; Wt 88.0 kg
[2025-02-03 11:02] VITALS: PULSE 81; RESP 18; O2SAT 94
--- NOTE | 2025-02-03 11:13 | ED.PDOC ---
History of Present Illness HPI Comments A 59 year-old female, with a PMHX of UTI, presents to the ED with a chief complaint of PICC line replacement. Patient states that she went to Dr. Barkley X1 month ago and was given a PICC line with diagnosed UTI. Patient came to the ED today for a replacement of the PICC line as requested by Dr. Ennis. Patient reports experiencing frequency/urgency and dysuria with associated UTI. Patient has no further complaints at this time and otherwise denies further associated symptoms of hematuria, N/V, fever, chills, or weakness. Chief Complaint: Tube Replacement Time Seen by MD: 10:40 Primary Care Provider: FRANCISCO J Reviewed Notes: Medications, Allergies Allergies: Coded Allergies: Influenza Vaccines (Unverified Allergy, Severe, hypotension/coma, 09/13/24) Pneumococcal Vaccines (Unverified Allergy, Severe, hypotension/coma, 09/13/24) Codeine (Unverified Allergy, Intermediate, itchy, 09/13/24) Home Meds Active Scripts Lactulose (Lactulose) 10 Gm/15 Ml [place], 10 GM PO BID for 30 Days, #4500 ML Prov:HANNAH MEJIAS RESIDENT 08/22/24 Spironolactone (Aldactone) 25 Mg Tab, 25 MG PO BIDD, #60 TAB Prov:MELISSA MCNALLY MD 07/11/22 Ipratropium [place] (Ipratropium [place]) 0.02 % [place], 0.5 MG NEB Q6HPRN PRN, #30 ML Prov:MELISSA MCNALLY MD 07/11/22 Reported Medications Hydrocodone-Acetaminophen (Hydrocodone Bitartrate/AC 10-325 mg) 1 Tab Tab, 1 TAB PO PRN, TAB 10/29/24 Pregabalin (Pregabalin) 100 Mg Cap, 100 MG PO, CAP 10/29/24 Evolocumab (Repatha) 140 Mg/Ml Inj, 140 MG SC, INJ 09/13/24 Yeast (S. Boulardii)(S. Cerevi (Probiotic) Unknown Strength Cap, PO, CAP 09/13/24 Mannose (D-Mannose) 500 Mg Cap, 1300 MG PO DAILY, CAP 09/13/24 Towner-3 Fatty Acids (FISH OIL) 1,000 Mg Cap, 1000 MG PO, CAP 09/13/24 Multiple Vitamins W/ Minerals (Bariatric Multivitamins/I) 1 Cap Cap, 1 CAP PO, CAP 09/13/24 Potassium Chloride (POTASSIUM CHLORIDE CR) 10 Meq Tb, 10 MEQ PO DAILY, TAB 09/13/24 Aspirin (Aspir-Low) 81 Mg Tab, 81 MG PO DAILY for 30 Days, MG 09/13/24 Carvedilol (Coreg) 6.25 Mg Tab, 6.25 MG PO BID, TAB 09/13/24 Folic Acid (Folic Acid) 1 Mg Tab, 1 TAB PO DAILY for 30 Days, #30 05/30/24 Cholecalciferol (Vitamin D-3) 5,000 Unit Cap, 1 CAP PO DAILY for 90 Days, #90 05/30/24 Quetiapine Fumerate (QUETIAPINE FUMARATE) 400 Mg Tab, 1 TAB PO HS 03/20/24 Furosemide (Furosemide) 40 Mg Tab, 1 TAB PO BID 03/20/24 Information Source: Patient Mode of Arrival: Ambulatory Severity: Moderate Duration: Since onset Past Medical History PAST MEDICAL HISTORY: Angina, Anxiety, CHF, COPD, Depression, High Lipids, HTN Surgical History: Cholecystectomy, , Tonsillectomy CORE SHAPER History: No Pertinent CORE SHAPER History Family History Family History: Reviewed,noncontributory to illness, Family hx of Cancer, Family hx of heart pedro pablo, Family hx of HTN Family History (Other): CHF Social History Smoker: Cigarettes Alcohol: Denies ETOH Use Drugs: Denies Drug Use Lives In: Home Constitutional: denies: chills, diaphoresis, fatigue, fever, malaise, sweats, weakness, others EENTM: denies: blurred vision, double vision, ear bleeding, ear discharge, ear drainage, ear pain, ear ringing, eye pain, eye redness, hearing loss, mouth pain, mouth swelling, nasal discharge, nose bleeding, nose congestion, nose pain, photophobia, tearing, throat pain, throat swelling, voice changes, others Respiratory: denies: cough, hemoptysis, orthopnea, SOB at rest, shortness of breath, SOB with excertion, stridor, wheezing, others Cardiovascular: denies: chest pain, dizzy spells, diaphoresis, Dyspnea on exertion, edema, irregular heart beat, left arm pain, lightheadedness, palpitations, PND, syncope, others Gastrointestinal: denies: abdomen distended, abdominal pain, blood streaked bowels, constipated, diarrhea, dysphagia, difficulty swallowing, hematemesis, melena, nausea, poor appetite, poor fluid intake, rectal bleeding, rectal pain, vomiting, others Genitourinary: reports: dysuria, frequency, urgency, others (Per HPI ); denies: abnormal vagina bleeding, burning, dyspareunia, flank pain, hematuria, incontinence, pain, , vagina discharge Neurological: denies: dizziness, fainting, headache, left sided numbness, left sided weakness, numbness, paresthesia, pre-existing deficit, right sided numbness, right sided weakness, seizure, speech problems, tingling, tremors, weakness, others Musculoskeletal: denies: back pain, gout, joint pain, joint swelling, muscle pain, muscle stiffness, neck pain, others Integumetry: denies: bruises, change in color, change in hair/nails, dryness, laceration, lesions, lumps, rash, wounds, others Allergic/Immunocompromised: denies: Difficulty Healing, Frequent Infections, Hives, Itching, others Hematologic/Lymphatic: denies: anemia, blood clots, easy bleeding, easy bruising, swollen glands, others Endocrine: denies: excessive hunger, excessive sweating, excessive thirst, excessive urination, flushing, intolerance to cold, intolerance to heat, unexplained weight gain, unexplained weight loss, others Psychiatric: denies: anxiety, bipolar disorder, depression, hopeless, panic disorder, schizophrenia, sleepless, suicidal, others All Other Systems: Reviewed and Negative Physical Exam General Appearance: No Apparent Distress, Normal HEENT: Normal ENT Inspection, Pharynx Normal, TMs Normal Neck: Full Range of Motion, Non-Tender, Normal, Normal Inspection Respiratory: Chest Non-Tender, Lungs Clear, No Accessory Muscle Use, No Respiratory Distress, Normal Breath Sounds Cardiovascular: No Edema, No JVD, No Murmur, No Gallop, Normal Peripheral Pulses, Regular Rate/Rhythm Breast Exam: Deferred Gastrointestinal: No Organomegaly, Non Tender, No Pulsatile Mass, Normal Bowel Sounds, Soft Genitalia: Deferred Pelvic: Deferred Rectal: Deferred Extremities: No calf tenderness, Normal capillary refill, Normal inspection, Normal range of motion, Non-tender, No pedal edema Musculoskeletal : Apperance: Normal Neurologic: Alert, member service specialist II-XII nml as Tested, No Motor Deficits, Normal Affect, Normal Mood, No Sensory Deficits Cerebellar Function: Normal Reflexes: Normal Skin: Dry, Normal Color, Warm Lymphatic: No Adenopathy Was a procedure done? Was a procedure done?: No Differential Dx Considerations may include: PICC Line Replacement X-Ray, Labs, Meds, VS Vital Signs Date Time Temp Pulse Resp B/P (MAP) Pulse Ox O2 Delivery O2 Flow Rate FiO2 02/03/25 12:22 98.7 94 16 140/82 (101) 98 98.7 02/03/25 11:02 81 18 94 Room Air* 0 21 02/03/25 10:43 98.2 81 18 100/64 (76) 94 98.2 02/03/25 10:43 98.2 81 18 100/64 (76) 94 98.2 Lab Test 02/03/25 10:30 Range/Units Urine Color Colorless Yellow Urine Clarity Clear Clear Urine pH 5.5 5.0-9.0 Urine Specific [place] 1.010 1.001-1.035 Urine Protein Negative Negative Urine Ketones Negative Negative Urine Blood Negative Negative /uL Urine Nitrite Negative Negative Urine Bilirubin Negative Negative Urine Urobilinogen Normal Negative mg/dL Urine Leukocyte Esterase 2+ Negative /uL Urine RBC 1 0 - 4 /hpf Urine Microscopic WBC 21 H 0-5 /HPF Urine Squamous Epithelial Cells None seen <5 /hpf Urine Bacteria None seen None Seen /hpf Urine Glucose Normal Normal mg/dL X-Ray, Labs, Meds, VS Comment A 59 year-old female, with a PMHX of UTI, presents to the ED with a chief complaint of PICC line replacement. Patient arrives alert and oriented, ABC's intact, afebrile, vital signs stable, saturating well in room air Urinalysis was ordered to rule out UTI or hematuria. Labs in the ED showed: Ur Leukocyte Esterase 2+, RBC 1, WBC 21 Nurse Practioner, James Benavidez, who works with , requested to do a PICC line on the patient and patient will receive 1 gram Radipendum daily for 14 days. On reevaluation, patient had symptomatic improvement. Patient is stable for discharge at this time. External notes reviewed. Test results and diagnostic imaging interpreted. All diagnostic findings, discharge care, education and instructions provided Follow-up with PCP in 2 to 3 days Patient verbalized understanding and agreed to treatment plan Vital signs stable, afebrile, no acute distress noted Patient ambulatory with strong steady gait Advised to return precautions for any new or worsening symptoms, return to ER immediately for re-evaluation Patient is aware that the purpose of this visit was for an acute medical emergency requiring emergent stabilization. Chronic conditions, including ma lignancies have not been ruled out. Patient is instructed to follow up with PCP as directed and discharge instructions for continued care and workup. If unable to arrange follow-up, patient is to return to the emergency department for reassessment. Patient (parent or legal guardian if applicable) was given verbal and written discharge instructions and acknowledges understanding. Additional MDM Review of External, Non-ED records: External records reviewed. Discussion with independent historian (EMS, family) history obtained from the patient/parents (if applicable) at bedside Chronic conditions affecting care: None Social determinants of health affecting care: None Consideration of admission (observation or admission): I considered escalation of care to admission for this patient, however given the reassuring workup, the patient is safe for outpatient management. Discussion with the Radiology: No Tests considered but not performed: Prescription medication considered but not given: Time of 1ST Reevaluation: 11:01 Reevaluation 1ST: Resolved Time of 2ND Reevaluation: 12:52 Reevaluation 2ND: Unchanged (Nurse Practioner, James Benavidez, who works with , requested to do a PICC line on the patient and prescribe 1 gram Radipendum daily for 14 days. ) Patient Education/Counseling: Diagnosis, Treatment Family Education/Counseling: No Family Present Medical Screening: No EMC Exist At This Time SEPSIS Sepsis Screen Date sepsis recognized/suspect: Feb 03, 2025 Time Sepsis recognized/suspect: 1043 Recent Procedure: No On Antibiotic Therapy: Yes Respiratory Rate >20: No Heart Rate >90: No Temp<36 C (96.8 F) or >38.3 C: No SBP <90 or MAP <65 mmHG: No New Acute Mental Status Change: No Is the patient on CPAP, BIPAP,: No Physician Orders Insert Midline (02/03/25 11:00) Vital Signs Date Time Temp Pulse Resp B/P (MAP) Pulse Ox O2 Delivery O2 Flow Rate FiO2 02/03/25 12:22 98.7 94 16 140/82 (101) 98 98.7 02/03/25 11:02 81 18 94 Room Air* 0 21 02/03/25 10:43 98.2 81 18 100/64 (76) 94 98.2 02/03/25 10:43 98.2 81 18 100/64 (76) 94 98.2 Departure 1 Departure Time of Disposition: 11:04 Impression: Primary Impression: PICC (peripherally inserted central catheter) in place Additional Impression: UTI (urinary tract infection) Qualified Codes: N30.00 - Acute cystitis without hematuria Disposition: HOME / SELF CARE / HOMELESS Condition: Fair Discharged With: Self Critical Care Note Critical Care Time?: No Stability Stability form required: No Heart Score Heart Score: Heart Score Response (Comments) Value History N/A 0 EKG N/A 0 Age N/A 0 Risk Factors N/A 0 Troponin N/A 0 Total 0 I personally scribed for REMIGIO [employer]ANDSCAPE FOREMAN ([email or web address]) on 02/03/25 at 11:13. Electronically submitted by Domenica Croft (Tiller). I personally scribed for [employer]IGIO E[employer] LANDSCAPE FOREMAN ([email or web address]) on 02/03/25 at 11:26. Electronically submitted by Domenica Croft (Tiller). I personally scribed for REMIGIO E[employer]ANDSCAPE FOREMAN ([email or web address]) on 02/03/25 at 12:01. Electronically submitted by Domenica Croft (Tiller). I personally scribed for [employer]SCAPE FOREMAN ([email or web address]) on 02/03/25 at 12:56. Electronically submitted by Domenica Croft (Tiller). REMIGIO EAST LANDSCAPE FOREMAN Feb 03, 2025 11:13
[2025-02-03 11:55] LABS: Urine Protein, UAD Negative (Negative)
[2025-02-03 12:22] VITALS: BP 140/82; PULSE 94; RESP 16; TEMP 98.7; O2SAT 98
== END 2025-02-03 13:39 | disposition home or self-care (01) ==
LOC: ER 10:39
DX: N39.0 Urinary tract infection, site not specified (principal); F17.210 Nicotine dependence, cigarettes, uncomplicated; F41.9 Anxiety disorder, unspecified; E78.5 Hyperlipidemia, unspecified; F32.A Depression, unspecified; I11.0 Hypertensive heart disease with heart failure; I50.9 Heart failure, unspecified; J44.9 Chronic obstructive pulmonary disease, unspecified; Z45.2 Encounter for adjustment and management of vascular access device; Z90.89 Acquired absence of other organs; Z88.7 Allergy status to serum and vaccine; Z88.5 Allergy status to narcotic agent; Z87.440 Personal history of urinary (tract) infections; Z90.49 Acquired absence of other specified parts of digestive tract
CPT/HCPCS: 81001

== ENCOUNTER 2025-03-13 06:08 | Day surgery (SDC) | payer MEDICAID ==
[2025-03-03 09:23] LABS: Hematocrit 43.5 % (36.0-46.0); Hemoglobin 14.1 g/dL (12.2-16.2); Mean Corpuscular Hemoglobin 30.9 pg (28.0-32.0); Mean Corpuscular Volume 95.3 fL (80.0-100.0); Nucleated Red Blood Cells % 0.0 %
[2025-03-03 09:27] LABS: Urine Protein, UAD Negative (Negative)
[2025-03-03 09:38] LABS: INR 0.96 (0.9-1.15); Partial Thromboplastin Time 32.2 SEC (24.5-34.5); Prothrombin Time 10.2 sec (9.3-11.8)
[2025-03-03 09:41] LABS: Alanine Aminotransferase 11 U/L (7-40); Alkaline Phosphatase 96 U/L (46-116); Anion Gap 5 (5-15); BUN/Creatinine Ratio 15.2 (10.0-20.0); Blood Urea Nitrogen 14 mg/dL (9-23); Chloride 105 mmol/L (98-107); Glucose 87 mg/dL (74-106); Sodium 141 mmol/L (136-145); Total Protein 7.6 g/dL (5.7-8.2)
[2025-03-03 09:46] LABS: Albumin 5.0 g/dL (3.2-4.8); Bilirubin, Total 0.3 mg/dL (0.2-1.0); Calcium 10.6 mg/dL (8.7-10.4); Carbon Dioxide 31 mmol/L (20-31); Potassium 5.4 mmol/L (3.5-5.1)
[~2025-03-13] VITALS: Ht 172.7 cm; Wt 90.3 kg
[~2025-03-13 06:08] MED LIST changes: -CARV6.2517 PO; -CHOL500033 PO; -D-MA500C PO; -EVOL140I SC; -FOLI-119 PO; -FURO40TA4 PO; -HYDR-4798 PO; -MULT1CAP35 PO; -OMEG-20 PO; -POTA-36 PO; -PREG100C66 PO; -QUET400T13 PO; -SACC1CAP3 PO
[2025-03-13] MEDS ORDERED: LIDOCAINE W/ EPINEPHRINE 1% 20ML VIAL ONE (08:18)
[2025-03-13] MEDS ORDERED: BUPIVACAINE HCL 50 ML ONE (08:18)
[2025-03-13] MEDS ORDERED: fentaNYL CITRATE 100 MCG/2 ML VL ONE (08:32)
[2025-03-13] MEDS ORDERED: MIDAZOLAM HCL 2MG/2ML 2ml VIAL (1mg/ml) ONE (08:32)
[2025-03-13] MEDS: ceFAZolin 2 GM/D5W50ml 50 ML IV ONE (08:33)
[2025-03-13] MEDS ORDERED: MIDAZOLAM HCL 2MG/2ML 2ml VIAL (1mg/ml) IV PRN (08:45)
[2025-03-13] MEDS ORDERED: ONDANSETRON HCL 4 MG/2 ML VIAL IV PRN (08:45)
[2025-03-13] MEDS: ceFAZolin 1GM VL ONE (08:45)
[2025-03-13] MEDS ORDERED: hydrALAZINE HCL 20 MG/ML VL IV PRN (08:45)
[2025-03-13] MEDS ORDERED: PROPOFOL 10 MG/ML 20 ML IV ONE (09:07)
[2025-03-13 09:20] VITALS: PULSE 67; RESP 15; O2SAT 99
[2025-03-13] MEDS ORDERED: HYDROmorphone HCL 2 MG/ML VL/or syr ONE (09:22)
[2025-03-13] MEDS: HYDROmorphone HCL 2 MG/ML VL/or syr IV PRN (09:23)
[2025-03-13 09:30] VITALS: PULSE 64; RESP 11; O2SAT 95
[2025-03-13 09:40] VITALS: PULSE 67; RESP 15; O2SAT 99
[2025-03-13] MEDS: KETOROLAC TROMETH 30 MG/ML 1ML VIAL IV ONE (10:10)
[2025-03-13] MEDS: MORPHINE SULFATE 4 MG/ML SYR/VIAL IV PRN (10:20)
[2025-03-13 10:40] VITALS: BP 112/75; PULSE 67; RESP 15; O2SAT 94
--- NOTE | 2025-03-13 15:11 | DVHOP2 ---
Operative Report - 2 Report Details Date: 03/13/25 Preop Diagnosis: right hip necrotic wound Postop Diagnosis: right hip necrotic wound Surgeon: Dr. selma Lu, Anesthesiologist: Dr. marcus Anesthesia: Mac Consent: The patient was informed of the risks and benefits of the procedure. These include but are not limited to complications of anesthesia, postoperative infection, incomplete relief of symptoms, recurrence of symptoms, damage to blood vessels, nerves and tendons, deep venous thrombosis, pulmonary embolism and possible need for repeat surgery in the future. Indications for Surgery: non healing necrotic wound Name of Procedure Performed debridement of right hip wound Procedure Details Procedure Details: Under the supervision of Dr. Martinez, the patient was brought to the operating room for debridement of a necrotic wound on the right hip. After receiving adequate anesthesia, the patient was placed in the left lateral position. The surgical site was prepped and draped in a sterile fashion. The procedure began with the excision of necrotic tissue, which covered the entire wound, using a scalpel. Curettes were then utilized to remove remaining necrotic tissue from the edges and bed of the wound. The wound was found to measure approximately 3 x 3 cm with a depth extending down to the muscle. Following debridement, the wound was irrigated with 1 liter of normal saline containing Ancef. At the patient's request, an amniotic graft was placed over the wound, which was then covered with Xeroform, and a wound VAC was applied. All sponge, needle, and blade counts were confirmed to be correct at the conclusion of the procedure. The patient tolerated the procedure well and was transferred to the recovery unit without incident. The patient is scheduled to follow up in the clinic in one week. Condition Good Disposition Home ALESIA LU NP Mar 13, 2025 15:10
== END 2025-03-13 10:50 | disposition home or self-care (01) ==
LOC: SUR 06:08
PROVIDERS: ATTEND Surgery
DX: L02.415 Cutaneous abscess of right lower limb (principal); S70.911A Unspecified superficial injury of right hip, initial encounter; L08.89 Other specified local infections of the skin and subcutaneous tissue; M79.89 Other specified soft tissue disorders; Y99.8 Other external cause status; X58.XXXA Exposure to other specified factors, initial encounter; Y93.89 Activity, other specified; Y92.89 Other specified places as the place of occurrence of the external cause
CPT/HCPCS: 11043; 36415; 80053; 81001; 84132; 85025; 85610; 85730; 88305; 88312; J0690; J1100; J1171; J1885; J2250; J2270; J2704; J3010; J3490; J7030

== ENCOUNTER 2025-03-27 09:04 | Emergency (ER) | payer MEDICAID ==
[~2025-03-27] VITALS: Ht 172.7 cm; Wt 87.0 kg
[2025-03-27 10:24] LABS: Hematocrit 41.9 % (36.0-46.0); Hemoglobin 14.1 g/dL (12.2-16.2); Mean Corpuscular Hemoglobin 32.4 pg (28.0-32.0); Mean Corpuscular Volume 96.5 fL (80.0-100.0); Nucleated Red Blood Cells % 0.1 %
[2025-03-27 10:53] LABS: Alanine Aminotransferase 11 U/L (7-40); Alkaline Phosphatase 92 U/L (46-116); Anion Gap 6 (5-15); BUN/Creatinine Ratio 26.7 (10.0-20.0); Calcium 9.4 mg/dL (8.7-10.4); Carbon Dioxide 24 mmol/L (20-31); Chloride 106 mmol/L (98-107); Potassium 4.7 mmol/L (3.5-5.1); Sodium 136 mmol/L (136-145); Total Protein 7.2 g/dL (5.7-8.2)
[2025-03-27 10:54] LABS: Albumin 4.3 g/dL (3.2-4.8); Blood Urea Nitrogen 24 mg/dL (9-23); Glucose 70 mg/dL (74-106)
[2025-03-27 10:55] LABS: Bilirubin, Total 0.3 mg/dL (0.2-1.0)
[2025-03-27] MEDS: SODIUM CHLORIDE 0.9% 1,000 ML IV ONE ×2 (11:58→16:28)
[2025-03-27] MEDS: ONDANSETRON HCL 4 MG/2 ML VIAL IV ONE (11:58)
[2025-03-27] MEDS: ACETAMINOPHEN 325 MG TAB PO ONE (11:59)
[2025-03-27 12:41] LABS: Urine Protein, UAD Negative (Negative)
--- NOTE | 2025-03-27 12:51 | ED.PDOC ---
General HPI Comments This is a 60-year-old female with past medical history of anxiety, depression, hypertension, CHF, COPD, and recurrent UTI came to the hospital due to dysuria, frequency, and pelvic discomfort since 2 days. She also reports of cloudy urine, nausea, and chills. 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 Per patient's provider (discussed through the phone), she has recurrent UTI due to ESBL and has used ertapenem and Zosyn in the past. She denies fever, vomiting, chest pain, shortness of breaths or any recent bowel habit changes. Chief Complaint: Urinary Time Seen by MD: 09:08 Primary Care Provider: FRANCISCO J Velazquez notes: Nurses Notes Allergies: Coded Allergies: Influenza Vaccines (Unverified Allergy, Severe, hypotension/coma, 09/13/24) Pneumococcal Vaccines (Unverified Allergy, Severe, hypotension/coma, 09/13/24) Codeine (Unverified Allergy, Intermediate, itchy, 09/13/24) Home Meds Active Scripts Lactulose (Lactulose) 10 Gm/15 Ml [place], 10 GM PO BID for 30 Days, #4500 ML Prov:HANNAH MEJIAS RESIDENT 08/22/24 Spironolactone (Aldactone) 25 Mg Tab, 25 MG PO BIDD, #60 TAB Prov:MELISSA MCNALLY MD 07/11/22 Ipratropium [place] (Ipratropium [place]) 0.02 % [place], 0.5 MG NEB Q6HPRN PRN, #30 ML Prov:MELISSA MCNALLY MD 07/11/22 Reported Medications Aspirin (Aspir-Low) 81 Mg Tab, 81 MG PO DAILY for 30 Days, MG 09/13/24 Information Source: Patient Mode of Arrival: Ambulatory Severity: Mild Timing: Days Duration: Days Past Medical History PAST MEDICAL HISTORY: Angina, Anxiety, CHF, COPD, Depression, High Lipids, HTN Surgical History: Cholecystectomy, , Tonsillectomy 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 SHEET ROCK NAILER History Family History Family History: Reviewed,noncontributory to illness, Family hx of Cancer, Family hx of heart pedro pablo, Family hx of HTN Family History (Other): CHF Social History Smoker: Cigarettes Alcohol: Denies ETOH Use Drugs: Denies Drug Use Lives In: Home Constitutional: denies: chills, diaphoresis, fatigue, fever, malaise, sweats, weakness, others EENTM: denies: blurred vision, double vision, ear bleeding, ear discharge, ear drainage, ear pain, ear ringing, eye pain, eye redness, hearing loss, mouth pain, mouth swelling, nasal discharge, nose bleeding, nose congestion, nose pain, photophobia, tearing, throat pain, throat swelling, voice changes, others Respiratory: denies: cough, hemoptysis, orthopnea, SOB at rest, shortness of breath, SOB with excertion, stridor, wheezing, others Cardiovascular: denies: chest pain, dizzy spells, diaphoresis, Dyspnea on exertion, edema, irregular heart beat, left arm pain, lightheadedness, palpitations, PND, syncope, others Gastrointestinal: denies: abdomen distended, abdominal pain, blood streaked bowels, constipated, diarrhea, dysphagia, difficulty swallowing, hematemesis, melena, nausea, poor appetite, poor fluid intake, rectal bleeding, rectal pain, vomiting, others Genitourinary: reports: burning, frequency, incontinence, urgency; denies: abnormal vagina bleeding, dyspareunia, dysuria, flank pain, hematuria, pain, , vagina discharge, others Neurological: denies: dizziness, fainting, headache, left sided numbness, left sided weakness, numbness, paresthesia, pre-existing deficit, right sided numbness, right sided weakness, seizure, speech problems, tingling, tremors, we akness, others Musculoskeletal: denies: back pain, gout, joint pain, joint swelling, muscle pain, muscle stiffness, neck pain, others Integumetry: denies: bruises, change in color, change in hair/nails, dryness, laceration, lesions, lumps, rash, wounds, others Allergic/Immunocompromised: denies: Difficulty Healing, Frequent Infections, Hives, Itching, others Hematologic/Lymphatic: denies: anemia, blood clots, easy bleeding, easy bruising, swollen glands, others Endocrine: denies: excessive hunger, excessive sweating, excessive thirst, excessive urination, flushing, intolerance to cold, intolerance to heat, unexplained weight gain, unexplained weight loss, others Psychiatric: denies: anxiety, bipolar disorder, depression, hopeless, panic disorder, schizophrenia, sleepless, suicidal, others Physical Exam General Appearance: No Apparent Distress, Normal HEENT: Normal ENT Inspection, Pharynx Normal, TMs Normal Neck: Full Range of Motion, Non-Tender, Normal, Normal Inspection Respiratory: Chest Non-Tender, Lungs Clear, No Accessory Muscle Use, No Respiratory Distress, Normal Breath Sounds Cardiovascular: No Edema, No JVD, No Murmur, No Gallop, Normal Peripheral Pulses, Regular Rate/Rhythm Breast Exam: Deferred Gastrointestinal: No Organomegaly, Non Tender, No Pulsatile Mass, Normal Bowel Sounds, Soft Genitalia: Deferred Pelvic: Deferred Rectal: Deferred Extremities: No calf tenderness, Normal capillary refill, Normal inspection, Normal range of motion, Non-tender, No pedal edema Neurologic: Alert, explosives handler II-XII nml as Tested, No Motor Deficits, Normal Affect, Normal Mood, No Sensory Deficits Cerebellar Function: Normal Reflexes: Normal Skin: Dry, Normal Color, Warm Lymphatic: No Adenopathy Was a procedure done? Was a procedure done?: No Differential Diagnosis Kidney stone (Female): Pyelonephritis Penile/Scrotal: UTI, Urolithiasis, Urinary Retention Urinary Problem (Male): Plelonephritis, Urethritis X-Ray, Labs, Meds, VS Vital Signs Date Time Temp Pulse Resp B/P (MAP) Pulse Ox O2 Delivery O2 Flow Rate FiO2 03/27/25 09:10 97.8 83 18 97/65 95 97.8 Lab Test 03/27/25 11:41 03/27/25 09:55 Range/Units Urine Color Colorless Yellow Urine Clarity Clear Clear Urine pH 5.0 5.0-9.0 Urine Specific [place] 1.009 1.001-1.035 Urine Protein Negative Negative Urine Ketones Negative Negative Urine Blood Negative Negative /uL Urine Nitrite Negative Negative Urine Bilirubin Negative Negative Urine Urobilinogen Normal Negative mg/dL Urine Leukocyte Esterase Negative Negative /uL Urine RBC 1 0 - 4 /hpf Urine Microscopic WBC 1 0-5 /HPF Urine Squamous Epithelial Cells Few <5 /hpf Urine Bacteria None seen None Seen /hpf Urine Glucose Normal Normal mg/dL White Blood Count 12.8 H 4.4-10.8 10^3/uL Red Blood Count 4.35 4.0-5.20 10^6/uL Hemoglobin 14.1 12.2-16.2 g/dL Hematocrit 41.9 36.0-46.0 % Mean Corpuscular Volume 96.5 80.0-100.0 fL Mean Corpuscular Hemoglobin 32.4 H 28.0-32.0 pg Mean Corpuscular Hemoglobin Concent 33.6 32.0-36.0 g/dL Red Cell Distribution Width 19.7 H 11.8-14.3 % Platelet Count 288 140-450 10^3/uL Mean Platelet Volume 8.4 6.9-10.8 fL Neutrophils (%) (Auto) 72.3 37.0-80.0 % Lymphocytes (%) (Auto) 17.2 10.0-50.0 % Monocytes (%) (Auto) 7.1 0.0-12.0 % Eosinophils (%) (Auto) 2.7 0.0-7.0 % Basophils (%) (Auto) 0.7 0.0-2.0 % Neutrophils # (Auto) 9.2 H 1.6-8.6 10 ^3/uL Lymphocytes # (Auto) 2.2 0.4-5.4 10 ^3/uL Monocytes # (Auto) 0.9 0-1.3 10 ^3/uL Eosinophils # (Auto) 0.3 0-0.8 10 ^3/uL Basophils # (Auto) 0.1 0-0.2 10 ^3/uL Nucleated Red Blood Cells 0.1 % Sodium Level 136 136-145 mmol/L Potassium Level 4.7 3.5-5.1 mmol/L Chloride Level 106 98-107 mmol/L Carbon Dioxide Level 24 20-31 mmol/L Anion Gap 6 5-15 Blood Urea Nitrogen 24 H 9-23 mg/dL Creatinine 0.90 0.550-1.02 mg/dL Glomerular Filtration Rate Calc 73 >90 mL/min BUN/Creatinine Ratio 26.7 H 10.0-20.0 Serum Glucose 70 L 74-106 mg/dL Lactic Acid Level 0.9 0.4-2.0 mmol/L Calcium Level 9.4 8.7-10.4 mg/dL Total Bilirubin 0.3 0.2-1.0 mg/dL Aspartate Amino Transferase (AST) 22 13-40 U/L Alanine Aminotransferase (ALT) 11 7-40 U/L Alkaline Phosphatase 92 46-116 U/L Total Protein 7.2 5.7-8.2 g/dL Albumin 4.3 3.2-4.8 g/dL Time of 1ST Reevaluation: 12:00 Reevaluation 1ST: Unchanged Patient Education/Counseling: Diagnosis, Treatment, Prognosis, Need For Follow Up Family Education/Counseling: Diagnosis, Treatment, Prognosis, Need For Follow Up Comments Patient came to the hospital due to dysuria, urgency, frequency and urinary incontinence. Patient was vitally stable. The patient was prescribed acetaminophen, and IV fluid. CBC showed raised WBC at 12.8. CMP within normal limits. Urinalysis showed normal picture. Patient has home health nurse for wound care and IV antibiotic. Upon speaking with provider through the phone, patients/provider was requesting midline for IV antibiotic at home. Midline was placed. Patient discharged home. Patient recommended to follow up with PCP in the office. SEPSIS Sepsis Screen Date sepsis recognized/suspect: Mar 27, 2025 Time Sepsis recognized/suspect: 911 Recent Procedure: No On Antibiotic Therapy: No Respiratory Rate >20: No Heart Rate >90: No Temp<36 C (96.8 F) or >38.3 C: No SBP <90 or MAP <65 mmHG: No New Acute Mental Status Change: No Is the patient on CPAP, BIPAP,: No Physician Orders Urine Bacterial Culture (03/27/25 09:43) Communication Order (03/27/25 11:36) Insert Midline (03/27/25 12:44) Vital Signs Date Time Temp Pulse Resp B/P (MAP) Pulse Ox O2 Delivery O2 Flow Rate FiO2 03/27/25 09:10 97.8 83 18 97/65 95 97.8 Laboratory Tests Test 03/27/25 09:55 Lactic Acid Level 0.9 mmol/L (0.4-2.0) White Blood Count 12.8 10^3/uL (4.4-10.8) H Departure 1 Departure Time of Disposition: 12:58 Impression: Primary Impression: Urinary incontinence Disposition: 01 HOME / SELF CARE / HOMELESS Condition: Good Critical Care Note Critical Care Time?: No Stability Stability form required: No Heart Score Heart Score: Heart Score Response (Comments) Value History N/A 0 EKG N/A 0 Age N/A 0 Risk Factors N/A 0 Troponin N/A 0 Total 0 MARIEL SANTOS RESDIENT Mar 27, 2025 12:51
[2025-03-27 15:26] VITALS: O2SAT 98
== END 2025-03-27 16:59 | disposition home or self-care (01) ==
LOC: ER 09:04
DX: R32 Unspecified urinary incontinence (principal); I11.0 Hypertensive heart disease with heart failure; I50.9 Heart failure, unspecified; J44.9 Chronic obstructive pulmonary disease, unspecified; F17.210 Nicotine dependence, cigarettes, uncomplicated; Z90.89 Acquired absence of other organs; Z90.49 Acquired absence of other specified parts of digestive tract; Z88.5 Allergy status to narcotic agent
CPT/HCPCS: 36415; 80053; 81001; 83605; 85025; 87086; 87088; 87186

== ENCOUNTER 2025-06-24 08:44 | Emergency (ER) | payer MEDICAID ==
[~2025-06-24] VITALS: Ht 172.7 cm; Wt 88.5 kg
[2025-06-24 09:16] VITALS: BP 133/77; PULSE 81; RESP 18; TEMP 98; O2SAT 98
--- NOTE | 2025-06-24 09:28 | ED.PDOC ---
General HPI Comments 60-year-old female PMHx frequent UTI, CHF, COPD, angina, anxiety, depression, HLD, HTN, presents to the ED with a chief complaint of urinary issues onset 4 days. Patient states she has been experiencing urinary frequency as well as dysuria with burning sensation, cloudy urine and nausea, vomiting. Daughter states patient experiences UTI frequently, about once a month, has PICC line placed for antibiotics. Denies fever, chills, hematuria, hematemesis, diarrhea, abdominal pain, chest pain, shortness of breath, headache, dizziness, head injury. No other symptoms or modifying factors present at this time. Chief Complaint: Urinary Time Seen by MD: 09:15 Primary Care Provider: FRANCISCO J Velazquez notes: Medications, Allergies Allergies: Coded Allergies: Influenza Vaccines (Unverified Allergy, Severe, hypotension/coma, 09/13/24) Pneumococcal Vaccines (Unverified Allergy, Severe, hypotension/coma, 09/13/24) Codeine (Unverified Allergy, Intermediate, itchy, 09/13/24) Home Meds Active Scripts Lactulose (Lactulose) 10 Gm/15 Ml [place], 10 GM PO BID for 30 Days, #4500 ML Prov:HANNAH MEJIAS RESIDENT 08/22/24 Spironolactone (Aldactone) 25 Mg Tab, 25 MG PO BIDD, #60 TAB Prov:MELISSA MCNALLY MD 07/11/22 Ipratropium [place] (Ipratropium [place]) 0.02 % [place], 0.5 MG NEB Q6HPRN PRN, #30 ML Prov:MELISSA MCNALLY MD 07/11/22 Reported Medications Aspirin (Aspir-Low) 81 Mg Tab, 81 MG PO DAILY for 30 Days, MG 09/13/24 Information Source: Patient, Relative Mode of Arrival: Ambulatory Severity: Moderate Timing: Days Duration: Since onset Prehospital treatment: None Onset: Spontaneous Symptoms: Dysuria History of: UTI associated signs and symptoms: Nausea, Vomiting, Dysuria Past Medical History PAST MEDICAL HISTORY: Angina, Anxiety, CHF, COPD, Depression, High Lipids, HTN, UTI'S Surgical History: Cholecystectomy, , Tonsillectomy ASSEMBLER BODY History: No Pertinent ASSEMBLER BODY History Family History Family History: Reviewed,noncontributory to illness, Family hx of Cancer, Family hx of heart pedro pablo, Family hx of HTN Family History (Other): CHF Social History Smoker: Cigarettes Alcohol: Denies ETOH Use Drugs: Denies Drug Use Lives In: Home Constitutional: denies: chills, diaphoresis, fatigue, fever, malaise, sweats, weakness, others EENTM: denies: blurred vision, double vision, ear bleeding, ear discharge, ear drainage, ear pain, ear ringing, eye pain, eye redness, hearing loss, mouth pain, mouth swelling, nasal discharge, nose bleeding, nose congestion, nose pain, photophobia, tearing, throat pain, throat swelling, voice changes, others Respiratory: denies: cough, hemoptysis, orthopnea, SOB at rest, shortness of breath, SOB with excertion, stridor, wheezing, others Cardiovascular: denies: chest pain, dizzy spells, diaphoresis, Dyspnea on exert ion, edema, irregular heart beat, left arm pain, lightheadedness, palpitations, PND, syncope, others Gastrointestinal: reports: nausea, vomiting; denies: abdomen distended, abdominal pain, blood streaked bowels, constipated, diarrhea, dysphagia, difficulty swallowing, hematemesis, melena, poor appetite, poor fluid intake, rectal bleeding, rectal pain, others Genitourinary: reports: burning, dysuria, frequency; denies: abnormal vagina bleeding, dyspareunia, flank pain, hematuria, incontinence, pain, , vagina discharge, urgency, others Neurological: denies: dizziness, fainting, headache, left sided numbness, left sided weakness, numbness, paresthesia, pre-existing deficit, right sided numbness, right sided weakness, seizure, speech problems, tingling, tremors, weakness, others Musculoskeletal: denies: back pain, gout, joint pain, joint swelling, muscle pain, muscle stiffness, neck pain, others Integumetry: denies: bruises, change in color, change in hair/nails, dryness, laceration, lesions, lumps, rash, wounds, others Allergic/Immunocompromised: denies: Difficulty Healing, Frequent Infections, Hives, Itching, others Hematologic/Lymphatic: denies: anemia, blood clots, easy bleeding, easy bruising, swollen glands, others Endocrine: denies: excessive hunger, excessive sweating, excessive thirst, excessive urination, flushing, intolerance to cold, intolerance to heat, unexplained weight gain, unexplained weight loss, others Psychiatric: denies: anxiety, bipolar disorder, depression, hopeless, panic disorder, schizophrenia, sleepless, suicidal, others All Other Systems: Reviewed and Negative Physical Exam General Appearance: Moderate Distress, Normal HEENT: Normal ENT Inspection, Pharynx Normal, TMs Normal Neck: Full Range of Motion, Non-Tender, Normal, Normal Inspection Respiratory: Chest Non-Tender, No Accessory Muscle Use, No Respiratory Distr ess, Other (Coarse breath sounds) Cardiovascular: No Edema, No JVD, No Murmur, No Gallop, Normal Peripheral Pulses, Regular Rate/Rhythm Breast Exam: Deferred Gastrointestinal: No Organomegaly, Non Tender, No Pulsatile Mass, Normal Bowel Sounds, Soft Genitalia: Deferred Pelvic: Deferred Rectal: Deferred Extremities: No calf tenderness, Normal capillary refill, Normal inspection, Normal range of motion, Non-tender, No pedal edema Musculoskeletal : Apperance: Normal Neurologic: Alert, computational chemist II-XII nml as Tested, No Motor Deficits, Normal Affect, Normal Mood, No Sensory Deficits Cerebellar Function: Normal Reflexes: Normal Skin: Dry, Normal Color, Warm Peripheral Pulses: 3+ Radial (R), 3+ Radial (L) Lymphatic: No Adenopathy Was a procedure done? Was a procedure done?: No Differential Diagnosis Kidney stone (Female): Musculoskeletal pain, Urinary obstruction, Urolithiasis X-Ray, Labs, Meds, VS Vital Signs Date Time Temp Pulse Resp B/P (MAP) Pulse Ox O2 Delivery O2 Flow Rate FiO2 06/24/25 09:16 98.0 81 18 133/77 (95) 98 98.0 06/24/25 08:48 98.2 81 14 102/69 92 98.2 Patient alert. Came in because of possible urinary tract infection. She is on oxygen. Vitals stable. Continues to smoke cigarettes. Counseled patient on effects of smoking cigarettes for 15 minutes. She wanted midline so she can get her intravenous antibiotics at home. She did not want to stay in the hospital. Insists on leaving. Explained to the patient. Was told to follow up with her primary care physician. Was told to come back if there is any problem. Time of 1ST Reevaluation: 09:45 Reevaluation 1ST: Unchanged Patient Education/Counseling: Diagnosis, Treatment, Prognosis Family Education/Counseling: Diagnosis, Treatment, Prognosis SEPSIS Sepsis Screen Date sepsis recognized/suspect: Jun 24, 2025 Time Sepsis recognized/suspect: 0848 Recent Procedure: No On Antibiotic Therapy: Yes Respiratory Rate >20: No Heart Rate >90: Yes Temp<36 C (96.8 F) or >38.3 C: No SBP <90 or MAP <65 mmHG: No New Acute Mental Status Change: No Is the patient on CPAP, BIPAP,: No Physician Orders Urinalysis (06/24/25 09:24) Insert Midline (06/24/25 09:24) Vital Signs Date Time Temp Pulse Resp B/P (MAP) Pulse Ox O2 Delivery O2 Flow Rate FiO2 06/24/25 09:16 98.0 81 18 133/77 (95) 98 98.0 06/24/25 08:48 98.2 81 14 102/69 92 98.2 Departure 1 Departure Time of Disposition: 10:29 Impression: Primary Impression: UTI (urinary tract infection) Qualified Codes: N30.00 - Acute cystitis without hematuria Additional Impression: COPD exacerbation Disposition: 01 HOME / SELF CARE / HOMELESS Condition: Good Discharged With: Self Critical Care Note Critical Care Time?: No Stability Stability form required: No Heart Score Heart Score: Heart Score Response (Comments) Value History N/A 0 EKG N/A 0 Age N/A 0 Risk Factors N/A 0 Troponin N/A 0 Total 0 I personally scribed for JESSICA SALAS MD ([email or web address]) on 06/24/25 at 09:28. Electronically submitted by Laila Jacobsen ([email or web address]). JESSICA SALAS MD Jun 24, 2025 09:28
[2025-06-24 14:24] LABS: Urine Protein, UAD Negative (Negative)
== END 2025-06-24 11:59 | disposition home or self-care (01) ==
LOC: ER 08:44
DX: N39.0 Urinary tract infection, site not specified (principal); J44.1 Chronic obstructive pulmonary disease with (acute) exacerbation; E78.5 Hyperlipidemia, unspecified; F17.210 Nicotine dependence, cigarettes, uncomplicated; I11.0 Hypertensive heart disease with heart failure; I50.9 Heart failure, unspecified; Z79.82 Long term (current) use of aspirin; Z90.49 Acquired absence of other specified parts of digestive tract; Z90.89 Acquired absence of other organs; Z88.5 Allergy status to narcotic agent; Z88.7 Allergy status to serum and vaccine; Z88.8 Allergy status to other drugs, medicaments and biological substances
CPT/HCPCS: 81001